=== PATIENT | male | born 1945 | race Caucasian/White ===

== ENCOUNTER 2016-07-20 08:55 | Inpatient (IN) | payer OTHER, MEDICARE ==
[~2016-07-20] VITALS: Ht 177.8 cm; Wt 76.3 kg
[2016-07-20] VITALS (32 sets, daily range): BP systolic 76–183; BP diastolic 45–81; PULSE 67–126; RESP 16–40; TEMP 97.8–102.8; O2SAT 92–100
[~2016-07-20 08:55] MED LIST: ASPI81 PO; COUM4TAB7 PO; LANTUSP SQ; LISI-363 PO; NORV5TAB PO; NOVOLOGSS SC; POLY10O OD; SIMV40TA PO; VITA400C28 PO
[2016-07-20] MEDS ORDERED: SODIUM CHLORID 0.9% 500 ML INJ 500 ML IV ONE ×3 (09:15→11:15)
--- NOTE | 2016-07-20 09:18 | PD ---
HPI Chief Complaint: Respiratory Distress Time Seen by Provider: 09:14 Travel History International Travel<30 days: No Contact w/Intl Traveler<30days: No Traveled to known affect area: No History of Present Illness HPI This 71-year-old male complaining of shortness of breath. He was well yesterday. His says he was very active appearing for an upcoming trip. Last night he started having chills and breathing heavy. He was short of breath. Around 4 in the morning he was incontinent of stool. Paramedics were called and blood sugar was found to be 35. He was given glucose. He has never smoked. His says that he gets pneumonia quite frequently. He had an episode of kidney failure 4 years ago but was never on dialysis. He has had some renal insufficiency since then. He also had congestive heart failure at that time. He has no history of myocardial infarction. The patient is on Coumadin because he has a history of DVT about 10 years ago. 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 Vena cava filter PFS Past Medical History Arthritis: Yes (lower back, knees) Autoimmune Disease: No Heart Rhythm Problems: No Cancer: No Cardiovascular Problems: Yes High Cholesterol: Yes Chemotherapy: No Chest Pain: No Congestive Heart Failure: Yes Diabetes: Yes Diminished Hearing: No Endocrine: Yes Genitourinary: No Hypertension: Yes Immune Disorder: No Implanted Vascular Access Dvce: Yes Musculoskeletal: Yes Neurologic: No Reproductive: No Respiratory: Yes (HX P.E. AND SOFYA FILTER) Radiation Therapy: No Renal Failure: Yes Sleep Apnea: No Thyroid Disease: No ?: Not Past Surgical History Abdominal Surgery: Yes (appendix, blocked bowel. groin filter) Appendectomy: Yes Cardiac Surgery: No Ear Surgery: No Endocrine Surgery: No Eye Surgery: No Genitourinary Surgery: Yes Oral Surgery: No Thoracic Surgery: No Other Surgery: Yes Social History Alcohol Use: No Tobacco Use: Yes (1/4 PACK A DAY) Substance Use: No Allergies-Medications (Allergen,Severity, Reaction): Coded Allergies: No Known Allergies (Verified , 07/20/16) Reported Meds & Prescriptions Reported Meds & Active Scripts Active Polytrim Opth (Polymyxin/Trimethoprim Sulfate) 10 Ml Soln 1 Drop OD QID Reported Vitamin D 400 Unit Tab 400 Unit PO DAILY Coumadin (Warfarin Sodium) 4 Mg Tab 4 Mg PO DAILY Norvasc (Amlodipine Besylate) 5 Mg Tab 5 Mg PO DAILY Lisinopril 20 Mg Tab 20 Mg PO DAILY START ON 05/02/12 Novolog Insulin Supplemental Scale (Insulin Aspart) 100 /Ml Inj 1 Ml SC DIRECTED Simvastatin 40 Mg Tab 40 Mg PO DAILY Aspirin 81 Mg Tab 81 Mg PO DAILY Lantus (Insulin Glargine) 100 Units/Ml Inj 60 Units SQ HS Review of Systems General / Constitutional: Positive: Chills Eyes: No: Diploplia, Blurred Vision HENT: No: Headaches, Vertigo Cardiovascular: No: Chest Pain or Discomfort, Palpitations Respiratory: Positive: Shortness of Breath, No: Wheezing Gastrointestinal: Positive: Diarrhea, No: Vomiting Musculoskeletal: No: Myalgias Neurologic: Positive: Weakness, No: Syncope Physical Exam Narrative GENERAL: Patient is somewhat mottled on arrival. He hasn't been lethargic SKIN: Focused skin assessment oh HEAD: Atraumatic. Normocephalic. EYES: Pupils equal and round. No scleral icterus. No injection or drainage. ENT: No nasal bleeding or discharge. Mucous membranes pink and moist. NECK: Trachea midline. No JVD. CARDIOVASCULAR: Rapid Regular rate and rhythm. No murmur appreciated. RESPIRATORY: There are bibasilar rales GASTROINTESTINAL: Abdomen soft, non-tender, nondistended. Hepatic and splenic margins not palpable. MUSCULOSKELETAL: No obvious deformities. No clubbing. No cyanosis. No edema. NEUROLOGICAL: Awake and alert. No obvious cranial nerve deficits. Motor grossly within normal limits. Normal speech. Data Data Last Documented VS Vital Signs Date Time Temp Pulse Resp B/P Pulse Ox O2 Delivery O2 Flow Rate FiO2 07/20/16 10:00 112 20 106/69 98 Non-Rebreather 07/20/16 08:57 97.8 Orders Electrocardiogram (07/20/16 09:14) Complete Blood Count With Diff (07/20/16 09:14) Comprehensive Metabolic Panel (07/20/16 09:14) Prothrombin Time / Inr (Pt) (07/20/16 09:14) Act Partial Throm Time (Ptt) (07/20/16 09:14) Lactic Acid Sepsis Protocol (07/20/16 09:14) Magnesium (Mg) (07/20/16 09:14) Troponin I (07/20/16 09:14) Urinalysis - C+S If Indicated (07/20/16 09:14) Blood Culture (07/20/16 09:14) Chest, Single Ap (07/20/16 09:14) Ecg Monitoring (07/20/16 09:14) Iv Access Insert/Monitor (07/20/16 09:14) Oximetry (07/20/16 09:14) Oxygen Administration (07/20/16 09:14) Arterial Blood Gas (Abg) (07/20/16 ) B-Type Natriuretic Peptide (07/20/16 09:14) Sodium Chlorid 0.9% 500 Ml Inj (Ns 500 M (07/20/16 09:15) Dextrose 50% In Tye (Vial) Inj (D50w (Vi (07/20/16 09:30) Ceftriaxone Inj (Rocephin Inj) (07/20/16 10:00) Azithromycin Inj (Zithromax Inj) (07/20/16 10:00) Sodium Chlorid 0.9% 500 Ml Inj (Ns 500 M (07/20/16 10:45) Ns (Bolus) Inj (07/20/16 11:00) Labs Laboratory Tests Test 07/20/16 07/20/16 07/20/16 09:15 09:30 09:33 White Blood Count 12.8 TH/MM3 Red Blood Count 4.99 MIL/MM3 Hemoglobin 15.4 GM/DL Hematocrit 44.8 % Mean Corpuscular Volume 89.8 FL Mean Corpuscular Hemoglobin 30.9 PG Mean Corpuscular Hemoglobin 34.4 % Concent Red Cell Distribution Width 12.7 % Platelet Count 266 TH/MM3 Mean Platelet Volume 8.2 FL Neutrophils (%) (Auto) 87.7 % Lymphocytes (%) (Auto) 5.9 % Monocytes (%) (Auto) 5.7 % Eosinophils (%) (Auto) 0.0 % Basophils (%) (Auto) 0.7 % Neutrophils # (Auto) 11.2 TH/MM3 Lymphocytes # (Auto) 0.8 TH/MM3 Monocytes # (Auto) 0.7 TH/MM3 Eosinophils # (Auto) 0.0 TH/MM3 Basophils # (Auto) 0.1 TH/MM3 CBC Comment DIFF FINAL Differential Comment Prothrombin Time 16.7 SEC Prothromb Time International 1.5 RATIO Ratio Activated Partial 33.0 SEC Thromboplast Time Sodium Level 143 MEQ/L Potassium Level 3.6 MEQ/L Chloride Level 105 MEQ/L Carbon Dioxide Level 18.7 MEQ/L Anion Gap 19 MEQ/L Blood Urea Nitrogen 27 MG/DL Creatinine 3.00 MG/DL Estimat Glomerular Filtration 21 ML/MIN Rate Random Glucose 62 MG/DL Calcium Level 9.4 MG/DL Magnesium Level 1.8 MG/DL Total Bilirubin 1.1 MG/DL Aspartate Amino Transf 39 U/L (AST/SGOT) Alanine Aminotransferase 34 U/L (ALT/SGPT) Alkaline Phosphatase 91 U/L Troponin I 0.14 NG/ML Total Protein 9.0 GM/DL Albumin 3.9 GM/DL Lactic Acid Level 7.7 mmol/L B-Type Natriuretic Peptide 207 PG/ML Blood Gas Puncture Site LT RADIAL Blood Gas Patient Temperature 98.6 Blood Gas HCO3 11 mmol/L Blood Gas Base Excess -13.7 mmol/L Blood Gas Oxygen Saturation 95 % Arterial Blood pH 7.34 Arterial Blood Partial 21 mmHG Pressure CO2 Arterial Blood Partial 118 mmHG Pressure O2 Arterial Blood Oxygen Content 19.7 Vol % Arterial Blood 0.5 % Carboxyhemoglobin Arterial Blood Methemoglobin 0.8 % Blood Gas Hemoglobin 14.6 G/DL Oxygen Delivery Device NONREBREATHER Blood Gas Liter Flow 15 L/M Blood Gas Inspired Oxygen 100 % [facility] Medical Decision Making Medical Screen Exam Complete: Yes Emergency Medical Condition: Yes Medical Record Reviewed: Yes Differential Diagnosis Differential includes pneumonia, pulmonary embolus, renal failure Narrative Course EKG shows sinus tachycardia with frequent PVCs. His white count is 12,000. Blood gases did show acidosis with pH 734 PCO2 21 04/16/17. Diagnosis Primary Impression: Hypoxia Additional Impression: Acidosis Glenn Curtis MD July 20, 2016 09:17
[2016-07-20] MEDS ORDERED: DEXTROSE 50% IN WATER 50 ML VIAL(D50) IV PUSH ONE (09:30)
[2016-07-20 09:38] LABS: AUTOMATED NEUTROPHIL # 11.2 TH/MM3 (1.8-7.7); BASOPHIL # 0.1 TH/MM3 (0-0.2); BASOPHIL % 0.7 % (0.0-2.0); HEMATOCRIT 44.8 % (39.0-51.0); LYMPH % 5.9 % (9.0-44.0); LYMPHOCYTE # 0.8 TH/MM3 (1.0-4.8); MEAN CELL VOLUME 89.8 FL (80.0-100.0); MEAN CORPUSCULAR HEMOGLOBIN 30.9 PG (27.0-34.0); MEAN CORPUSCULAR HGB CONC 34.4 % (32.0-36.0); MONO % 5.7 % (0.0-8.0); NEUT % 87.7 % (16.0-70.0); PLATELET COUNT 266 TH/MM3 (150-450); RED BLOOD COUNT 4.99 MIL/MM3 (4.50-5.90); RED CELL DISTRIBUTION WIDTH 12.7 % (11.6-17.2); WHITE BLOOD COUNT 12.8 TH/MM3 (4.0-11.0)
[2016-07-20 09:40] LABS: HEMO FLAGS DIFF FINAL
[2016-07-20 09:41] LABS: BLOOD GAS BASE EXCESS -13.7 mmol/L (-2-2); BLOOD GAS CARBOXYHEMOGLOBIN 0.5 % (0-4); BLOOD GAS HCO3 11 mmol/L (22-26); BLOOD GAS METHEMOGLOBIN 0.8 % (0-2); BLOOD GAS O2 HGB SATURATION 95 % (90-100); BLOOD GAS OXYGEN CONTENT 19.7 Vol % (12.0-20.0); BLOOD GAS PO2 118 mmHG (61-120); BLOOD GAS TOTAL HGB 14.6 G/DL (12.0-16.0); TEMP CORR TO 98.6
[2016-07-20 09:42] LABS: BLOOD GAS PCO2 21 mmHG (38-42); CRITICAL VALUE YES; DRAW SITE LT RADIAL; FIO2 100 %; LITER FLOW 15 L/M; NUMBER OF ARTERIAL PUNCTURES 1; OXYGEN DEVICE NONREBREATHER; STAT YES; ULNAR PULSE PRESENT
[2016-07-20 09:58] LABS: INTERNATIONAL NORMALIZED RATIO 1.5 RATIO; PROTHROMBIN TIME - PATIENT 16.7 SEC (9.8-11.6)
[2016-07-20 09:59] LABS: BICARBONATE 18.7 MEQ/L (21.0-32.0)
[2016-07-20 10:00] LABS: BLOOD UREA NITROGEN 27 MG/DL (7-18); MAGNESIUM 1.8 MG/DL (1.5-2.5)
[2016-07-20] MEDS ORDERED: cefTRIAXone INJ 1,000 MG in SODIUM CHLORIDE 0.9% INJ 100 ML IV ONE (10:00)
[2016-07-20] MEDS ORDERED: AZITHROMYCIN INJ 500 MG in SODIUM CHLOR 0.9% 250 ML INJ 250 ML IV ONE (10:00)
[2016-07-20 10:03] LABS: ANION GAP 19 MEQ/L (5-15); AST (GOT) 39 U/L (15-37); CHLORIDE 105 MEQ/L (98-107); POTASSIUM 3.6 MEQ/L (3.5-5.1); SODIUM (NA) 143 MEQ/L (136-145)
[2016-07-20 10:06] LABS: ALKALINE PHOSPHATASE 91 U/L (45-117); GLOMERULAR FILTRATION RATE 21 ML/MIN (>89)
[2016-07-20 10:08] LABS: ALT (GPT) 34 U/L (12-78)
--- NOTE | 2016-07-20 10:14 | RADHPO ---
EXAM DATE/TIME: 07/20/2016 09:57 [facility] COMPARISON: CHEST SINGLE AP, April 28, 2012, 9:22. INDICATIONS : Short of breath MEDICAL HISTORY : None. SURGICAL HISTORY : None. ENCOUNTER: Initial ACUITY: 2 days PAIN SCORE: 0/10 LOCATION: Bilateral chest FINDINGS: A single AP erect portable view of the chest was obtained and demonstrates mild chronic scarring. The re are no new confluent infiltrates or effusions. The heart size is within normal limits with no nikos hilar edema. The bony thorax remains intact with overlying electrocardiogram leads. Mild atherosclero tic calcifications are present in the aorta. CONCLUSION: Mild scarring with no acute cardiopulmonary disease. Alonzo Bradshaw MD on July 20, 2016 at 10:11 Board Certified Radiologist. This report was verified electronically.
[2016-07-20 10:15] LABS: TOTAL BILIRUBIN ADULT 1.1 MG/DL (0.2-1.0)
[2016-07-20] MEDS ORDERED: SODIUM CHLOR 0.9% 1000 ML INJ 1,000 ML IV ONE ×3 (11:00→16:00)
[2016-07-20] MEDS ORDERED: ASPI81CH37 CHEW (11:09)
[2016-07-20] MEDS ORDERED: LISI-515 PO (11:09)
[2016-07-20] MEDS ORDERED: SIMV20TA PO (11:09)
[2016-07-20] MEDS ORDERED: NOVOLOGP2 SQ (11:09)
[2016-07-20] MEDS ORDERED: WARF4TAB51 PO (11:09)
[2016-07-20] MEDS ORDERED: LANTUS2P SQ (11:09)
[2016-07-20] MEDS ORDERED: AMLO5TAB2 PO (11:09)
[2016-07-20] MEDS ORDERED: VITA1000 PO (11:09)
[2016-07-20] MEDS ORDERED: MISCELLANEOUS NURSING INFORMATION XX SCH (11:15)
[2016-07-20] MEDS ORDERED: MORPHINE SULFATE 4 MG/ML INJ IV PRN (11:15)
[2016-07-20] MEDS ORDERED: SENNOSIDES 8.6 MG TAB PO PRN (11:15)
[2016-07-20] MEDS ORDERED: SODIUM CHLORIDE 0.9% FLUSH 10 ML FLUSH IV FLUSH PRN (11:15)
[2016-07-20] MEDS ORDERED: ONDANSETRON HCL 4 MG/2 ML VIAL IV PRN (11:15)
[2016-07-20] MEDS ORDERED: CHLORHEXIDINE GLUCONATE 2 % 1 PACK (2 CLOTHS) TOP PRN (11:15)
--- NOTE | 2016-07-20 11:57 | RADHPO ---
EXAM DATE/TIME: 07/20/2016 11:28 [facility] COMPARISON: CHEST SINGLE AP, July 20, 2016, 9:57. INDICATIONS : Short of breath since last night. RADIATION DOSE: 24.22 CTDIvol (mGy) MEDICAL HISTORY : History of left adrenal mass seen on prior CT Hypertension. Congestive heart failure. Aortic aneurys m. Diabetes. SURGICAL HISTORY : Appendectomy. Dom filter. ENCOUNTER: Initial ACUITY: 2 days PAIN SCALE: 0/10 LOCATION: chest TECHNIQUE: Volumetric scanning of the chest was performed. Using automated exposure control and adjustment of t he mA and/or kV according to patient size, radiation dose was kept as low as reasonably achievable to obtain optimal diagnostic quality images. FINDINGS: LUNGS: There is no consolidation or pneumothorax. Chronic scarring is present in the lung bases left greater than right. This is more severe in the subpleural locations. No concerning pulmonary nodule is visua lized. PLEURAE: There is no pleural thickening or pleural effusion. MEDIASTINUM: The heart and great vessels demonstrate no acute abnormality. There is no mediastinal or hilar lymph adenopathy. The coronary artery calcifications are present. There is no pericardial effusion. AXILLAE: Within normal limits. No lymphadenopathy. MUSCULOSKELETAL: Within normal limits for patient age. MISCELLANEOUS: The visualized upper abdominal organs demonstrate no acute abnormality. A left adrenal adenoma is aga in noted. There is a smaller mass in the right adrenal gland most consistent with a small adenoma as well. There are multiple loops of borderline dilated air-containing small bowel in the upper abdomen with multiple air-fluid levels. CONCLUSION: 1. Chronic scarring in the lung bases left greater than right. 2. No focal consolidation. 3. Bilateral adrenal masses left greater than right most consistent with adenomas. 4. Nonspecific bowel gas pattern noted in the upper abdomen with air-fluid levels in the small bowel. Alonzo Bradshaw MD on July 20, 2016 at 11:52 Board Certified Radiologist. This report was verified electronically.
[2016-07-20 11:59] LABS: LACTIC ACID GHOST NOT REPORTABLE
[2016-07-20] MEDS: SODIUM CHLOR 0.9% 1000 ML INJ 1,000 ML IV SCH ×2 (12:05→23:49)
[2016-07-20] MEDS: RESP: ALBUTEROL 2.5 MG/IPRATROPIUM 0.5 MG NEB (SCH) INH ×3 (12:22→19:44)
[2016-07-20] MEDS ORDERED: TERBUTALINE INJ 1 MG/ML AMP SQ PRN (13:15)
[2016-07-20] MEDS ORDERED: ROCURONIUM INJ 100 MG/10 ML VIAL IV ONE (13:30)
[2016-07-20] MEDS ORDERED: ETOMIDATE 40 MG/20 ML VIAL IV PUSH ONE (13:30)
[2016-07-20] MEDS: NOREPINEPHRINE-DEXTROSE DRIP 250 ML IV SCH ×4 (14:12→21:56)
--- NOTE | 2016-07-20 14:18 | PD.PROCEDR ---
Central Line Procedure REASON FOR PROCEDURE Central venous access PROCEDURE PERFORMED Central line placement: Left IJ CVL CONSENT Informed consent for procedure was obtained from patient. The risks and benefits of the procedure were discussed to include but limited to bleeding, clot formation, infection, and even . ANESTHESIA Local injection of 1% Lidocaine DESCRIPTION OF THE PROCEDURE The patient was placed in supine, mild Trendelenburg position. The area was exposed and cleansed with ChloraPrep, times two. Large sterile drape was used to cover the patient, with the site exposed, under sterile conditions including cap, face mask, sterile gown, and sterile gloves. On single attempt, the introducer needle was inserted with negative pressure in syringe and venous flash was obtained. The guide wire was then advanced without any restriction and the needle was removed. The dilator was used without any complications. Using Seldinger technique the triple-lumen catheter was advanced over the guide wire to a depth of 20 centimeters. The guide wire was removed. All ports were aspirated with dark venous blood return and flushed easily with sterile saline. All ports were capped. Antibiotic disc was placed around central line at puncture site. The central line was secured to the skin with two interrupted 2.0 silk sutures. The area was bandaged with sterile see-through central line bandage. RADIOLOGICAL DATA Ultrasound guidance was used to locate left internal jugular vein. Doppler/ color flow was used to confirm venous flow. COMPLICATIONS: No apparent complications ESTIMATED BLOOD LOSS: Less than 1 cc. Andrey Brown MD July 20, 2016 14:18
--- NOTE | 2016-07-20 14:19 | PD.PROCEDR ---
Procedure Note Procedure DATE: 07/20/16 PROCEDURE: Orotracheal intubation INDICATION: Acute hypoxemic respiratory failure DETAILS OF PROCEDURE The patient was placed in optimal position and preoxygenated with 100% FiO2 via bag valve mask. At the start oxygen saturation was 100%. The patient was administered 25 mcg fentanyl IV and 20 milligrams etomidate IV and 50 mg rocuronium. I entered the oropharynx with a size 4 GVL glidescope blade and obtained a grade 2 view of the airway. On single attempt a size 8.0 cuffed endotracheal tube was passed through the vocal cords. Correct tube location was confirmed with end tidal CO2 detector and by auscultating over bilateral lung narayan. The endotracheal tube was secured with adhesive tape at a depth of 24 cm at the lips. The patient was connected to the ventilator. The patient tolerated the procedure well without any apparent complications. Oxygen saturations were maintained greater than 95% all times. STAT chest x-ray pending at time of dictation. Andrey Brown MD July 20, 2016 14:19
[2016-07-20] MEDS ORDERED: Vancomycin Consult Pharmacy 1 EA OTHER SCH (14:30)
[2016-07-20] MEDS ORDERED: SODIUM CHLORIDE 0.9% FLUSH 10 ML FLUSH IVF PRN (14:30)
[2016-07-20] MEDS ORDERED: ASPIRIN 81 MG CHEW TAB CHEW ONE (14:30)
--- NOTE | 2016-07-20 14:34 | HHI.HP ---
[facility] Service Critical Care Medicine Primary Care Physician [facility] Admission Diagnosis HYPOXIA Diagnosis: (1) Diabetes mellitus with neuropathy Diagnosis: Principal (2) Diabetes mellitus due to underlying condition with diabetic neuropathy Diagnosis: Principal (3) Severe sepsis with acute organ dysfunction Diagnosis: Principal (4) Lactic acidosis Diagnosis: Principal (5) Hypoxia Diagnosis: Principal (6) Acidosis Diagnosis: Principal (7) Leukocytosis Diagnosis: Principal (8) Elevated troponin Diagnosis: Principal (9) Dyslipidemia Diagnosis: Principal (10) History of DVT (deep vein thrombosis) Diagnosis: Principal (11) Chronic anticoagulation Diagnosis: Principal (12) Peripheral vascular disease Diagnosis: Principal (13) Hypertension Diagnosis: Principal Chief Complaint: Shortness of breath Travel History International Travel<30 Days: No Contact w/Intl Traveler <30 Da: No Traveled to Known Affected Are: No Sepsis Criteria SIRS Criteria (2 or more): RR > 20 or PaCO2 < 32, WBC > 41436, < 4000 or > 10 % bands Sepsis Criteria (SIRS+source): Infect source susp/known Severe Sepsis (+one): Lactate >2 Septic Shock Criteria: Lactic acid >=4 Multiple Organ Dysfunction Syn: Evidence -2 organs failing Criteria Outcome: Meets multiple organ dys. criteria History of Present Illness 71-year-old male. Date of admission 07/20/2016. Past records includes diabetes with neuropathy and nephropathy, hypertension, dyslipidemia, chronic pain syndrome, history of DVT/PE on chronic anticoagulation, peripheral vascular disease with history of AAA, and osteoporosis. Patient recently C [facility] 07/06/16. Patient sick contacts would include neighbor with "vital illness. Patient is to [facility] today with acute onset of diarrhea, hypoglycemia and chills. Upon arrival, patient was noted be acutely hypoxic and required a nonrebreather mask. Patient denies pleuritic chest pain , abdominal pain but positive for nausea and diarrhea. CT chest revealed bilateral lower lobe scarring, bilateral adrenal adenomas a nonspecific bowel gas pattern. Chest x-ray revealed no significant findings. Lab work included a lactic acid elevated 7.7, white blood cell count 12,000 in acute kidney injury with a creatinine of 3.0. Baseline around 1.5-2. Troponin was slightly elevated 0.14. EKG is currently pending. Upon arrival to [facility], patient was extremely mottled with rates in the 40s. Patient was emergently intubated please see note and a left IJ central line was placed. CT of the head, abdomen and pelvis currently pending. Review of Systems ROS Limitations: Intubated Past Family Social History Allergies: Coded Allergies: No Known Allergies (Verified , 07/20/16) Physical Exam Vital Signs Vital Signs Date Time Temp Pulse Resp B/P Pulse Ox O2 Delivery O2 Flow Rate FiO2 07/20/16 14:02 99 100 07/20/16 13:04 112 30 93/54 100 Non-Rebreather 15 07/20/16 12:34 111 30 78/47 100 Non-Rebreather 15 07/20/16 12:26 100 Non-Rebreather 07/20/16 11:54 114 28 78/51 100 Non-Rebreather 15 07/20/16 11:07 24 100 Non-Rebreather 15 07/20/16 11:00 112 24 86/61 100 Non-Rebreather 15 07/20/16 11:00 98.4 112 28 86/61 100 Non-Rebreather 15 07/20/16 10:00 112 20 106/69 98 Non-Rebreather 07/20/16 09:30 117 24 129/69 100 Non-Rebreather 12 07/20/16 09:05 100 Nasal Cannula 3 07/20/16 09:00 118 24 Nasal Cannula 3 07/20/16 08:57 97.8 67 24 96/60 92 Physical Exam GENERAL: SKIN: Warm and dry. HEAD: Atraumatic. Normocephalic. EYES: Pupils equal and round. No scleral icterus. No injection or drainage. ENT: No nasal bleeding or discharge. Mucous membranes pink and moist. NECK: Trachea midline. No JVD. CARDIOVASCULAR: Regular rate and rhythm. RESPIRATORY: No accessory muscle use. Clear to auscultation. Breath sounds equal bilaterally. GASTROINTESTINAL: Abdomen soft, non-tender, nondistended. Hepatic and splenic margins not palpable. MUSCULOSKELETAL: Extremities without clubbing, cyanosis, or edema. No obvious deformities. NEUROLOGICAL: Awake and alert. No obvious cranial nerve deficits. Motor grossly within normal limits. Five out of 5 muscle strength in the arms and legs. Normal speech. PSYCHIATRIC: Appropriate mood and affect; insight and judgment normal. Laboratory Laboratory Tests Test 07/20/16 07/20/16 07/20/16 07/20/16 09:15 09:30 09:33 12:10 White Blood Count 12.8 Red Blood Count 4.99 Hemoglobin 15.4 Hematocrit 44.8 Mean Corpuscular Volume 89.8 Mean Corpuscular Hemoglobin 30.9 Mean Corpuscular Hemoglobin 34.4 Concent Red Cell Distribution Width 12.7 Platelet Count 266 Mean Platelet Volume 8.2 Neutrophils (%) (Auto) 87.7 Lymphocytes (%) (Auto) 5.9 Monocytes (%) (Auto) 5.7 Eosinophils (%) (Auto) 0.0 Basophils (%) (Auto) 0.7 Neutrophils # (Auto) 11.2 Lymphocytes # (Auto) 0.8 Monocytes # (Auto) 0.7 Eosinophils # (Auto) 0.0 Basophils # (Auto) 0.1 CBC Comment DIFF FINAL Differential Comment Prothrombin Time 16.7 Prothromb Time International 1.5 Ratio Activated Partial 33.0 Thromboplast Time D-Dimer Quantitative (PE/DVT) 14.64 Sodium Level 143 Potassium Level 3.6 Chloride Level 105 Carbon Dioxide Level 18.7 Anion Gap 19 Blood Urea Nitrogen 27 Creatinine 3.00 Estimat Glomerular Filtration 21 Rate Random Glucose 62 Calcium Level 9.4 Magnesium Level 1.8 Total Bilirubin 1.1 Aspartate Amino Transf 39 (AST/SGOT) Alanine Aminotransferase 34 (ALT/SGPT) Alkaline Phosphatase 91 Troponin I 0.14 Total Protein 9.0 Albumin 3.9 Lactic Acid Level 7.7 5.8 B-Type Natriuretic Peptide 207 Blood Gas Puncture Site LT RADIAL Blood Gas Patient Temperature 98.6 Blood Gas HCO3 11 Blood Gas Base Excess -13.7 Blood Gas Oxygen Saturation 95 Arterial Blood pH 7.34 Arterial Blood Partial 21 Pressure CO2 Arterial Blood Partial 118 Pressure O2 Arterial Blood Oxygen Content 19.7 Arterial Blood 0.5 Carboxyhemoglobin Arterial Blood Methemoglobin 0.8 Blood Gas Hemoglobin 14.6 Oxygen Delivery Device NONREBREATHER Blood Gas Liter Flow 15 Blood Gas Inspired Oxygen 100 Date/Time Procedure Status Source Growth 07/20/16 09:30 Aerobic Blood Culture Received Blood Peripheral Pending 07/20/16 09:30 Anaerobic Blood Culture Received Blood Peripheral Pending Result Diagram: 07/20/1691407/20/16914 Imaging Last Impressions Chest X-Ray 07/20/16913 Signed Impressions: Service Date/Time: Wednesday, July 20, 2016 09:57 - CONCLUSION: Mild scarring with no acute cardiopulmonary disease. Alonzo Bradshaw MD Chest CT 07/20/16 0000 Signed Impressions: Service Date/Time: Wednesday, July 20, 2016 11:28 - CONCLUSION: 1. Chronic scarring in the lung bases left greater than right. 2. No focal consolidation. 3. Bilateral adrenal masses left greater than right most consistent with adenomas. 4. Nonspecific bowel gas pattern noted in the upper abdomen with air-fluid levels in the small bowel. Alonzo Bradshaw MD Assessment and Plan Assessment and Plan Neuro/Psych: Peripheral neuropathy Chronic pain syndrome Patient is currently on propofol/fentanyl drips for sedation/analgesia while intubated Goal of RA SS -[address] head ordered without contrast CV: Elevated troponin Hypertension Dyslipidemia Lactic acidosis Peripheral vascular disease History of AAA Per 's verbal report patient this summer had a negative dobutamine stress test at the [place] Holding home medication lisinopril 20 no grams by mouth daily in light of acute kidney injury Holding home medication simvastatin 20 mg by mouth. Resume when clinically indicated Holding Norvasc 5 mill grams by mouth daily light of hypotension. Resume when clinically indicated Likely okay to continue aspirin 81 mg daily with elevated troponin. Follow-up on EKG/echocardiogram Troponins will be trended every 6 hours 2 Lactates every 6 hours. Monitor until cleared. Source unclear present time. Currently receiving 3 L bolus 1 now Echocardiogram revealed EF 50-55%. RV dilated. Left atrium dilated Trace . Resp: Acute hypoxemic respiratory failure [facility]ism [facility] 16/500/8/1.1/100 Ventilator bundle Bronchodilator therapy every 4 hours with albuterol every 2 hours. Dyspnea Spontaneous breathing trials when clinically indicated Follow-up is intubation chest x-ray and ABG CT chest 07/20 revealed left greater than right basilar scarring. Bilateral adrenal adenomas. VQ scan ordered GI: Patient is currently nothing by mouth OG tube t LIWS Protonix for GI prophylaxis Colace/as needed Senokot for bowel regimen Checking stool studies see orders in ID : Connelly will be placed for accurate I's and O's in a critically ill patient Bladder scan with 18 cc currently Endo: Diabetes mellitus with nephropathy and neuropathy Bilateral adrenal adenoma Home medications Lantus 70 units at night with slight scale insulin. Currently on sliding scale insulin Accu-Cheks every 4 hours to maintain euglycemia/moderate regimen Renal: Acute on chronic kidney failure Creatinine currently 3.0. Will check CT abdomen/pelvis rule out obstructive process. Urine eosinophils/electrolytes pending Heme: Leukocytosis Chronic warfarin use History DVT/PE with history of IVC filter 10 years INR subtherapeutic at 1.5 Patient does have an IVC filter ID: Patient received Rocephin/azithromycin ED at [place]. Start Zosyn/vancomycin day #1 Pertinent cultures Blood cultures 2, UA, urine Legionella pneumococcal antigens, influenza all ordered. Results pending. Sputum ordered. MSK: Osteoarthritis Holding vitamin D 1000 units by mouth daily. FEN: Replace electrolytes as clinically indicated Access - Left IJ CVL day 1 - checking CVP every 6 hours. Currently 11 Prophylaxis - GI - Protonix - DVT - SCD/heparin drip if head CT negative/abdominal and pelvis CT negative. Critical Care: The total critical care time was 75 minutes. Time to perform other separately billable procedures was not included in the critical care time. Code Status Full code Discussed Condition With Alysia Lemus and daughter. Care plan discussed and all questions answered. Problem Qualifiers (1) Diabetes mellitus with neuropathy: Qualified Code: E11.40 - Type 2 diabetes mellitus with diabetic neuropathy, unspecified oil heaterman insulin use status (2) Diabetes mellitus due to underlying condition with diabetic neuropathy: Qualified Code: E08.40 - Diabetes mellitus due to underlying condition with diabetic neuropathy, with long-term current use of insulin (3) Leukocytosis: Qualified Code: D72.829 - Leukocytosis, unspecified type (4) Hypertension: Qualified Code: I10 - Essential hypertension Andrey Brown MD July 20, 2016 14:34
--- NOTE | 2016-07-20 14:53 | RADRPT ---
EXAM DATE/TIME: 07/20/2016 14:32 [facility] COMPARISON: CHEST SINGLE AP, July 20, 2016, 9:57. INDICATIONS : Central line placement. MEDICAL HISTORY : None. SURGICAL HISTORY : None. ENCOUNTER: Initial ACUITY: 1 day PAIN SCORE: Non-responsive. LOCATION: Bilateral chest FINDINGS: A single AP semierect view of the chest was obtained and demonstrates interval placement of left inte rnal jugular central venous line with the tip projected over the superior vena cava. There is no pneu mothorax. An endotracheal tube has been placed with the tip 4 cm above the krissy. A nasogastric tube is also been placed and is seen coursing through the esophagus and into the stomach. There are no ne w confluent infiltrates or effusions. The heart size remains within normal limits. CONCLUSION: 1. Interval intubation and placement of left internal jugular central venous line with no pneumothora x. 2. Placement of nasogastric tube. 3. No acute cardiopulmonary disease. Alonzo Bradshaw MD on July 20, 2016 at 14:49 Board Certified Radiologist. This report was verified electronically.
--- NOTE | 2016-07-20 15:07 | RADHPO ---
EXAM DATE/TIME: 07/20/2016 14:39 [facility] COMPARISON: No previous studies available for comparison. INDICATIONS : Shortness of breath MEDICAL HISTORY : Hypercholesterolemia. Congestive heart failure. DVT. CHF. PE. Renal failure. SURGICAL HISTORY : Appendectomy. Dom filter. ENCOUNTER: Initial ACUITY: 1 day PAIN SCORE: Non-responsive LOCATION: Bilateral leg. TECHNIQUE: Venous ultrasound of the left and right leg was performed from the inguinal ligament to the proximal calf. Real-time, color Doppler and spectral tracing, compression and augmentation techniques were us ed. FINDINGS: RIGHT LEG: There is normal compressibility of the deep venous system from the inguinal region to the proximal ca lf. No echogenic clot is seen in the lumen of the common femoral, femoral, popliteal, and posterior tibial veins. There is a normal response of the venous system to proximal and distal augmentation an d respiration. LEFT LEG: There is normal compressibility of the deep venous system from the inguinal region to the proximal ca lf. No echogenic clot is seen in the lumen of the common femoral, femoral, popliteal, and posterior tibial veins. There is a normal response of the venous system to proximal and distal augmentation an d respiration. CONCLUSION: Negative exam with no evidence of deep venous thrombosis. Alonzo Bradshaw MD on July 20, 2016 at 15:05 Board Certified Radiologist. This report was verified electronically.
[2016-07-20] MEDS: fentaNYL DRIP 250 ML IV SCH (15:08)
[2016-07-20] MEDS: PROPOFOL 1000 MG/100 ML INJ 100 ML IV SCH ×3 (15:09→21:20)
[2016-07-20 15:17] LABS: BLOOD GAS BASE EXCESS -13.9 mmol/L (-2-2); BLOOD GAS CARBOXYHEMOGLOBIN 0.3 % (0-4); BLOOD GAS HCO3 14 mmol/L (22-26); BLOOD GAS METHEMOGLOBIN 2.1 % (0-2); BLOOD GAS O2 HGB SATURATION 96 % (90-100); BLOOD GAS OXYGEN CONTENT 17.2 Vol % (12.0-20.0); BLOOD GAS PCO2 49 mmHg (38-42); BLOOD GAS PO2 358 mmHg (61-120); BLOOD GAS TOTAL HGB 12.1 G/DL (12.0-16.0); TEMP CORR TO 98.6
[2016-07-20 15:18] LABS: CRITICAL VALUE YES; FIO2 100 %; OXYGEN DEVICE VENT
[2016-07-20 15:19] LABS: DRAW SITE ALINE; STAT NO
[2016-07-20] MEDS ORDERED: SODIUM BICARBONATE 8.4% INJ 50 MEQ/50 ML SYR IV PUSH ONE (15:30)
[2016-07-20] MEDS: PIPERACIL-TAZO 3.375 GM PREMIX 50 ML IV SCH ×2 (15:43→21:20)
[2016-07-20] MEDS ORDERED: DIATRIZOATE MEGLUM/DIATRIZOATE SOD 9 ML CUP PO ONE (16:00)
[2016-07-20] MEDS ORDERED: VANCOMYCIN INJ 1,700 MG in SODIUM CHLORID 0.9% 500 ML INJ 500 ML IV ONE (16:00)
--- NOTE | 2016-07-20 16:18 | RADHPO ---
EXAM DATE/TIME: 07/20/2016 14:32 [facility] COMPARISON: No previous studies available for comparison. INDICATIONS : Increased Bun and Creatine. MEDICAL HISTORY : Hypercholesterolemia. Hypertension. CHF. PE. DVT. Renal failure. SURGICAL HISTORY : Appendectomy. Etters filter. ENCOUNTER: Initial ACUITY: 1 day PAIN SCORE: Nonresponsive. LOCATION: Bilateral flank MEASUREMENTS: RIGHT KIDNEY: 10.7 x 5.8 x 5.6 cm LEFT KIDNEY: 11.9 x 5.1 x 6.1 cm FINDINGS: RIGHT KIDNEY: Renal cortex is normal in thickness and echotexture. No hydronephrosis, stone, or mass. LEFT KIDNEY: Renal cortex is normal in thickness and echotexture. No hydronephrosis, stone, or mass. BLADDER: Not clearly visualized CONCLUSION: 1. No acute findings. Renal ultrasound unremarkable. Bladder was not well-visualized. Jose Martin Valderrama MD on July 20, 2016 at 16:14 Board Certified Radiologist. This report was verified electronically.
[2016-07-20 16:28] LABS: BACTERIA, URINE FEW /hpf; BLOOD, URINE LARGE (NEG); GLUCOSE,URINE TRACE mg/dL (NEG); KETONE, URINE NEG (NEG); MUCUS URINE FEW /lpf (OCC); NITRITE,URINE NEG (NEG); PH, URINE 5.5 (5.0-8.5); SQUAMOUS EPITHELIAL CELL URINE 3 /hpf (0-5); URIC ACID CRYSTALS, URINE FEW /hpf; URINE COLOR YELLOW (YELLW/STRAW)
[2016-07-20 16:29] LABS: COMMENT (UR) CATH-CULTURE IND; CULTURE IF INDICATED CATH CULTURE IND
--- NOTE | 2016-07-20 16:38 | MB ---
cc: GOOD AMAYA MD DATE OF CONSULTATION 07/20/16 REASON FOR CONSULTATION Acute kidney injury and elevated BUN and creatinine. HISTORY OF PRESENT ILLNESS This is a 71-year-old male with past medical history of diabetes mellitus, hypertension, ischemic heart disease, peripheral neuropathy, chronic kidney disease, history of deep vein thrombosis, hyperlipidemia was brought to the hospital because of generalized weakness, confusion and vomiting and diarrhea. I was called to see the patient because of elevated BUN and creatinine. The patient has history of acute kidney injury in the past and chronic kidney disease. His creatinine was around 1.2 to 1.4, this was in 2012. At that time he also had acute kidney injury. His creatinine was as high as 8.5 in March of 2012. The patient was seen by me in the office, according to the , I do not have any record at present but according to the he was discharged from my office about three years ago and was told to just follow up with his primary physician and he has been following with his primary physician at the [facility]. The last time he was seen he was told that the kidney function is slightly worse and needs to take more fluid. The patient has been doing okay at home and this Thursday morning at 4 a.m. he woke up and he had low blood sugar. EMS was called and they gave him some dextrose and his sugar came up about 90 and he elected not to come to the hospital. Later on in the morning he again had the same episode and he was shaking and he has vomiting and has episode of loose bowel motion which was very large and then he was brought to the [facility] and from there he was found that he has been hypotensive and high creatinine and metabolic acidosis and he was transferred here. Here in the hospital the patient was intubated. He is found to have lactic acidosis and he is going down for further scans. His blood pressures has been supported. His urine output is low. He has just got the Connelly catheter. PAST MEDICAL HISTORY Hypertension, diabetes mellitus, ischemic heart disease, hyperlipidemia, history of deep venous thrombosis, peripheral vascular disease, chronic kidney disease with history of acute kidney injury. REVIEW OF SYSTEMS The review of systems cannot be taken since the patient is intubated. SOCIAL HISTORY The patient is , lives with his . He has a past history of smoking and occasionally has alcoholic beverages. FAMILY HISTORY The family history is noncontributory. ALLERGIES He has no known drug allergies. MEDICATIONS Currently he is gettin. Normal saline at 84 an hour. 2. Sodium bicarbonate, dextrose 75 an hour. 3. Aspirin 81 milligrams once a day. 4. DuoNeb nebulizer. 5. He got bolus of normal saline. 6. Vancomycin 1 dose 1.7 grams. 7. Zosyn 3.375 grams every 8 hours. 8. Norepinephrine. 9. Fentanyl as needed. PHYSICAL EXAMINATION GENERAL: On examination the patient is intubated and sedated. VITAL SIGNS: His last blood pressure is 93/54, temperature 98.4, oxygen saturation on 60% FIO2 is 99%. HEENT: Pupils are mid constricted. Nonicteric sclera, conjunctiva pale. NECK: Supple. JVD is not elevated. LUNGS: The patient has bilateral good air entry with scattered wheezing. HEART: S1-S2 regular rhythm. ABDOMEN: Distended, soft, lax. There is no tenderness. EXTREMITIES: There is no pedal edema. INVESTIGATION WBC count 12.8, hemoglobin 15.4, platelet count 266, sodium 143. Potassium 3.6, chloride 105, bicarb 18.7, BUN 27, creatinine 3, lactic acid level is 5.8, it was 7.7. Calcium is 9.4, magnesium 1.8, total bilirubin is 1.1, AST is 39, ALT is 34. Troponin is 0.14. Total protein is 9.0 with albumin of 3.9. D-dimer is 14.4. APTT is 33. INR is 1.5. Urinanalysis not done. IMAGING STUDIES The patient had chest x-ray done which shows lung field clear. CT scan of the chest was done without IV contrast and shows chronic scarring in the lung bases. No focal consolidation. Bilateral adrenal masses consistent with adenoma. The lower leg ultrasound was done which was negative for deep venous thrombosis. Ultrasound of the kidney was done but has not been reported yet. ASSESSMENT/PLAN 1. Hypotension and shock status. 2. Acute kidney injury. 3. Severe lactic acidosis. 4. Respiratory failure. 5. Acute kidney injury with chronic kidney disease. 6. Leukocytosis. 7. Rule out sepsis. The patient has severe lactic acidosis and acute kidney injury and hypotension. The acute kidney injury is most likely related to ATN or possibility of interstitial nephritis. I will check the urinanalysis and also get the urine sodium and osmolality along with urine eosinophils. Agree with continuing the IV fluids with sodium bicarbonate and follow the urine output and the BMP and if there is no improvement he possibly will need dialysis. This was discussed with the family, and daughter at the bedside. Thank you for the consultation. I will follow the patient while he is in the hospital. MD DILAN Sullivan/JOSE /4:04 PM /4:13 PM
[2016-07-20] MEDS: SODIUM BICARBONATE 8.4% INJ 150 MEQ in DEXTROSE 5% IN WATE 1000ML INJ 1,000 ML IV SCH ×2 (16:57)
[2016-07-20] MEDS ORDERED: SODIUM CHLOR 0.9% 1000 ML INJ 700 ML IV ONE (17:00)
--- NOTE | 2016-07-20 18:40 | RADRPT ---
EXAM DATE/TIME: 07/20/2016 18:21 [facility] COMPARISON: No previous studies available for comparison. INDICATIONS : Altered mental status. RADIATION DOSE: 48.62 CTDIvol (mGy) MEDICAL HISTORY : Diabetes mellitus type 2. Congestive heart failure. Renal failure, chronic.Hypertension SURGICAL HISTORY : Appendectomy. Colon resection. ENCOUNTER: Initial ACUITY: 1 day PAIN SCALE: Non-responsive LOCATION: cranial TECHNIQUE: Multiple contiguous axial images were obtained of the head. Using automated exposure control and adj ustment of the mA and/or kV according to patient size, radiation dose was kept as low as reasonably a chievable to obtain optimal diagnostic quality images. FINDINGS: CEREBRUM: The ventricles are normal for age. No evidence of midline shift, mass lesion, hemorrhage or acute in farction. No extra-axial fluid collections are seen. POSTERIOR FOSSA: The cerebellum and brainstem are intact. The 4th ventricle is midline. The cerebellopontine angle i s unremarkable. EXTRACRANIAL: The visualized portion of the orbits is intact. SKULL: The calvaria is intact. No evidence of skull fracture. CONCLUSION: 1. No acute intracranial abnormalities. Mild mucosal thickening of the ethmoid air cells. Jose Martin Valderrama MD on July 20, 2016 at 18:36 Board Certified Radiologist. This report was verified electronically.
--- NOTE | 2016-07-20 18:47 | RADRPT ---
EXAM DATE/TIME: 07/20/2016 18:24 [facility] COMPARISON: No previous studies available for comparison. INDICATIONS : Sepsis. ORAL CONTRAST: No oral contrast ingested. RADIATION DOSE: 38.36 CTDIvol (mGy) MEDICAL HISTORY : Diabetes mellitus type 2. Congestive heart failure. Renal failure, chronic.Hypertension SURGICAL HISTORY : Appendectomy. Colon resection. ENCOUNTER: Initial ACUITY: 1 day PAIN SCALE: Non-responsive LOCATION: abdomen TECHNIQUE: Volumetric scanning of the abdomen and pelvis was performed. Using automated exposure control and ad justment of the mA and/or kV according to patient size, radiation dose was kept as low as reasonably achievable to obtain optimal diagnostic quality images. FINDINGS: There is dependent consolidation in both lungs with a small left pleural effusion. Moderate coronary calcifications. No acute findings in the liver, spleen, pancreas. No calcified gallstones. There are nonobstructing b ilateral renal calculi measuring 2-3 mm. Inferior vena cava filter is present. There is a lower abdominal ventral hernia containing a loop of bowel. Small bowel is fairly diffusely distended, likely an ileus. There is no definite obstruction in the area of herniation. Connelly catheter in bladder. The free air free fluid. CONCLUSION: 1. Lower abdominal ventral midline hernia containing loop of small bowel. Small bowel is mildly diste nded somewhat diffusely with fluid and air. Cannot exclude a low grade partial bowel obstruction in t he area of herniation. 2. No abnormal fluid collections to suggest abscess. No free air or free fluid. 3. Basilar and dependent lung consolidation, left greater than right. Pneumonia could have this appea nati. Small left effusion. 4. NG tip in stomach. Inferior vena cava filter present. Connelly catheter in bladder. Jose Martin Valderrama MD on July 20, 2016 at 18:38 Board Certified Radiologist. This report was verified electronically.
[2016-07-20 18:57] LABS: BLOOD GAS BASE EXCESS -10.7 mmol/L (-2-2); BLOOD GAS CARBOXYHEMOGLOBIN 0.8 % (0-4); BLOOD GAS HCO3 15 mmol/L (22-26); BLOOD GAS METHEMOGLOBIN 2.5 % (0-2); BLOOD GAS O2 HGB SATURATION 94 % (90-100); BLOOD GAS OXYGEN CONTENT 15.7 Vol % (12.0-20.0); BLOOD GAS PCO2 31 mmHg (38-42); BLOOD GAS PO2 100 mmHg (61-120); BLOOD GAS TOTAL HGB 11.8 G/DL (12.0-16.0); CRITICAL VALUE YES; DRAW SITE RT BRACHIAL; FIO2 50 %; NUMBER OF ARTERIAL PUNCTURES 1; OXYGEN DEVICE VENTILATOR; STAT NO; TEMP CORR TO 98.6; ULNAR PULSE PRESENT
[2016-07-20 18:58] LABS: VENT SETTINGS PRVC/AC
--- NOTE | 2016-07-20 19:00 | EC ---
Study Study Date:07/20/2016 STUDY CONCLUSIONS SUMMARY - Left ventricle: The cavity size was normal. Wall thickness was normal. Systolic function was moderately reduced. The estimated ejection fraction was in the range of 35% to 40%. Wall motion was normal; there were no regional wall motion abnormalities. The study is not technically sufficient to allow evaluation of LV diastolic function. - Aortic valve: Valve area: 2.73cm^2(VTI). Valve area: 2.94cm^2 (Vmax). - Mitral valve: Mild regurgitation. - Pulmonary arteries: PA peak pressure: 37mm Hg (S). If LV function is below 40, please consider prescribing an ACEI or ARB or document rationale for non-use. PROCEDURE DATA STUDY STATUS: Elective. Procedure: Transthoracic echocardiography. Image quality was poor. Scanning was performed from the parasternal, apical, and subcostal acoustic windows. Study completion: The patient tolerated the procedure well. Transthoracic echocardiography. M-mode, complete 2D, complete spectral Doppler, and color Doppler. Height: Height: 70in. Weight: Weight: 188.6lb. Body mass index: BMI: 27.1kg/m^2. Body surface area: BSA: 2.04m^2. Patient status: Inpatient. CARDIAC ANATOMY LEFT VENTRICLE: The cavity size was normal. Wall thickness was normal. Systolic function was moderately reduced. The estimated ejection fraction was in the range of 35% to 40%. Wall motion was normal; there were no regional wall motion abnormalities. The study is not technically sufficient to allow evaluation of LV diastolic function. AORTIC VALVE: Trileaflet; normal thickness leaflets. Doppler: Transvalvular velocity was within the normal range. There was no stenosis. No regurgitation. Valve area: 2.73cm^2(VTI). Valve area: 2.94cm^2 (Vmax). Mean gradient: 9mm Hg (S). Peak gradient: 15mm Hg (S). AORTA: Aortic root: The aortic root was normal in size. MITRAL VALVE: Structurally normal valve. Doppler: Transvalvular velocity was within the normal range. There was no evidence for stenosis. Mild regurgitation. LEFT ATRIUM: The atrium was normal in size. RIGHT VENTRICLE: The cavity size was normal. Wall thickness was normal. PULMONIC VALVE: Doppler: Transvalvular velocity was within the normal range. There was no evidence for stenosis. No regurgitation. TRICUSPID VALVE: Structurally normal valve. Doppler: Transvalvular velocity was within the normal range. Trace regurgitation. PULMONARY ARTERY: The main pulmonary artery was normal-sized. Systolic pressure was within the normal range. RIGHT ATRIUM: The atrium was normal in size. PERICARDIUM: There was no pericardial effusion. SYSTEMIC VEINS: Inferior vena cava: The vessel was normal in size. Patient weight: 188.6lb _Ejection fraction:_ 65-75% _Fractional shortening:_ 32% up to 5Kg 5-11.5Kg 11.6-22.9Kg 23-45Kg 45-57Kg Aortic Root 7-13 <17 13-22 17-27 17-27 LA diam 6-13 <23 24-38 33-47 37-40 RVID 10-17 7-15 7-15 7-18 8-17 LVIDd 12-22 <32 24-38 33-47 37-40 LVPW 2-4 3-6 5-7 6-8 7-8 IVS 2-4 3-6 5-7 6-8 7-8 BASIC MEASUREMENTS ADULT NORMAL Left ventricle LV internal dimension, ED, chordal level, *31.3 mm 43-52 PLAX LV internal dimension, ES, chordal level, 26.1 mm 23-38 PLAX Fractional shortening, chordal level, PLAX *17 % >29 LV posterior wall thickness, ED 12.3 mm IVS/LVPW ratio, ED 1 <1.3 Ventricular septum Septal thickness, ED 12.3 mm Aorta Root diameter, ED 30 mm DOPPLER MEASUREMENTS ADULT NORMAL Main pulmonary artery Pressure, S *37 mm Hg =30 Aortic valve Peak velocity, S 195 cm/s Mean velocity, S 143 cm/s VTI, S 24.9 cm Mean gradient, S 9 mm Hg Peak gradient, S 15 mm Hg Valve area, VTI 2.73 cm^2 Valve area, Vmax 2.94 cm^2 Mitral valve Peak E-wave velocity 58.6 cm/s Peak A-wave velocity 104 cm/s Deceleration time *95 ms 150-230 Peak E/A ratio 0.6 Tricuspid valve Regurgitant peak velocity 266 cm/s Peak RV-RA gradient, S 28 mm Hg Maximal regurgitant velocity 266 cm/s Systemic veins Estimated CVP 10 mm Hg Right ventricle RV pressure, S *38 mm Hg <30 Pulmonic valve Peak velocity, S 58.7 cm/s LEGEND: Mean values are shown as u=mean value. Asterisk (*) gunderson values outside specified normal range. Prepared and signed by Faith Marrufo [id number]
[2016-07-20] MEDS: CHLORHEXIDINE 0.12% (ORAL KIT) 15 ML CUP MT SCH (19:21)
[2016-07-20] MEDS: SODIUM CHLORIDE 0.9% FLUSH 10 ML FLUSH IV FLUSH SCH (19:21)
[2016-07-20] MEDS: DOCUSATE SODIUM 100 MG CAP PO SCH (19:58)
[2016-07-20] MEDS ORDERED: SODIUM BICARBONATE 8.4% INJ 50 MEQ/50 ML SYR IV ONE (20:30)
[2016-07-20] MEDS: VASOPRESSIN 40 U/100 ML D5W Titrate, Post Cardiac Surgery IV SCH ×2 (20:40)
[2016-07-20] MEDS: ACETAMINOPHEN 325 MG TAB PO PRN (21:56)
[2016-07-21] VITALS (20 sets, daily range): BP systolic 86–106; BP diastolic 51–58; PULSE 103–128; RESP 20–24; TEMP 99.3–100.8; O2SAT 92–97
[2016-07-21] MEDS: PROPOFOL 1000 MG/100 ML INJ 100 ML IV SCH ×4 (00:51→20:38)
[2016-07-21] MEDS: NOREPINEPHRINE-DEXTROSE DRIP 250 ML IV SCH ×3 (00:52→06:00)
[2016-07-21] MEDS: RESP: ALBUTEROL 2.5 MG/IPRATROPIUM 0.5 MG NEB (SCH) INH ×8 (01:33→23:42)
[2016-07-21] MEDS: SODIUM BICARBONATE 8.4% INJ 150 MEQ in DEXTROSE 5% IN WATE 1000ML INJ 1,000 ML IV SCH ×2 (03:16)
[2016-07-21] MEDS: CHLORHEXIDINE GLUCONATE 2 % 1 PACK (2 CLOTHS) TOP SCH (03:17)
[2016-07-21] MEDS: PIPERACIL-TAZO 3.375 GM PREMIX 50 ML IV SCH ×2 (06:00→13:09)
[2016-07-21 06:34] LABS: INTERNATIONAL NORMALIZED RATIO 1.8 RATIO; PROTHROMBIN TIME - PATIENT 20.6 SEC (9.8-11.6)
[2016-07-21 06:54] LABS: BICARBONATE 19.7 MEQ/L (21.0-32.0); MAGNESIUM 1.2 MG/DL (1.5-2.5); POTASSIUM 3.5 MEQ/L (3.5-5.1); TOTAL BILIRUBIN ADULT 0.6 MG/DL (0.2-1.0)
[2016-07-21 06:56] LABS: CALCIUM-PROTEIN CORRECTED 6.6 MG/DL (8.5-10.1)
[2016-07-21 07:36] LABS: AUTOMATED NEUTROPHIL # 10.3 TH/MM3 (1.8-7.7); BASOPHIL % 0.3 % (0.0-2.0); EOSINOPHIL # 0.1 TH/MM3 (0-0.4); EOSINOPHIL % 0.6 % (0.0-4.0); HEMATOCRIT 32.7 % (39.0-51.0); LYMPHOCYTE # 0.3 TH/MM3 (1.0-4.8); MEAN CORPUSCULAR HEMOGLOBIN 30.9 PG (27.0-34.0); MEAN CORPUSCULAR HGB CONC 33.9 % (32.0-36.0); MONO % 2.5 % (0.0-8.0); NEUT % 93.6 % (16.0-70.0); PLATELET COUNT 124 TH/MM3 (150-450); RED CELL DISTRIBUTION WIDTH 13.8 % (11.6-17.2)
[2016-07-21 07:44] LABS: HEMO FLAGS AUTO DIFF
[2016-07-21 07:50] LABS: BANDS 29 % (0-6); METAMYELOCYTES 7 % (0-1); MYELOCYTES 1 % (0-0); NEUTROPHIL # MANUAL DIFF 10.1 TH/MM3 (1.8-7.7); PLATELET ESTIMATE SMEAR LOW (NORMAL); PLATELET MORPHOLOGY NORMAL (NORMAL); POLYS (SEG NEUTROPHILS) 55 % (16-70); SCAN/DIFF FINAL DIFF MANUAL; TOXIC GRANULATION 1+ (NORMAL); TOXIC VACUOLATION PRESENT (NONE SEEN); WBC DIFF SAMPLE 100
[2016-07-21 07:51] LABS: DOHLE BODIES PRESENT (NONE SEEN)
[2016-07-21] MEDS ORDERED: CALCIUM GLUCONATE INJ 2 GM in DEXTROSE 5% IN WATER 100ML INJ 100 ML IV ONE ×2 (08:00)
[2016-07-21] MEDS: DOCUSATE SODIUM 100 MG CAP PO SCH ×2 (09:00→20:38)
[2016-07-21] MEDS: SODIUM CHLORIDE 0.9% FLUSH 10 ML FLUSH IVF SCH (09:00)
[2016-07-21] MEDS: CHLORHEXIDINE 0.12% (ORAL KIT) 15 ML CUP MT SCH ×2 (09:21→20:10)
[2016-07-21] MEDS: SODIUM CHLORIDE 0.9% FLUSH 10 ML FLUSH IV FLUSH SCH ×2 (09:22→20:39)
[2016-07-21] MEDS: PANTOPRAZOLE SODIUM 40 MG VIAL IV SCH (09:22)
[2016-07-21] MEDS: ASPIRIN 81 MG CHEW TAB CHEW SCH (09:22)
--- NOTE | 2016-07-21 11:23 | EKG ---
Date Performed: 07/20/2016 Time Performed: 15:11:10 PTAGE: 71 years EKG: Sinus tachycardia with borderline 1st degree A-V block. Possible left anterior fascicular b lock Lateral T wave changes are nonspecific Borderline ECG PREVIOUS TRACING : 07/20/2016 09.06 DOCTOR: Jerel Mckinnon Interpretating Date/Time 07/21/2016 11:18:41
--- NOTE | 2016-07-21 11:30 | EKG ---
Date Performed: 07/20/2016 Time Performed: 09:06:54 PTAGE: 71 years EKG: Sinus tachycardia with sinus arrhythmia with frequent PVCs. Lead(s) unsuitable for analysis : V2 Possible left anterior fascicular block Left ventricular hypertrophy Lateral ST-T changes are pr obably due to ventricular hypertrophy Abnormal ECG NO PREVIOUS TRACING DOCTOR: Jerel Mckinnon Interpretating Date/Time 07/21/2016 11:22:51
[2016-07-21] MEDS: fentaNYL DRIP 250 ML IV SCH (11:35)
[2016-07-21] MEDS: VASOPRESSIN 40 U/100 ML D5W Titrate, Post Cardiac Surgery IV SCH ×2 (11:35)
[2016-07-21] MEDS ORDERED: NOREPINEPHRINE 4 MG/4 ML AMP ONE (11:41)
[2016-07-21] MEDS ORDERED: GLUCAGON 1 MG/ML VIAL OTHER PRN (12:45)
[2016-07-21] MEDS ORDERED: Vancomycin Consult Pharmacy 1 EA OTHER SCH (12:45)
[2016-07-21] MEDS ORDERED: DEXTROSE 50% IN WATER 50 ML VIAL(D50) IV PUSH PRN (12:45)
[2016-07-21] MEDS ORDERED: MAGNESIUM SULFATE 1 GM PREMIX 100 ML IV ONE (13:00)
[2016-07-21] MEDS: INSULIN NovoLIN REGULAR SUPPLEMENTAL SCALE SQ SCH ×2 (13:08→18:54)
[2016-07-21] MEDS: HYDROCORTISONE SOD SUCCINATE 100 MG VIAL IV PUSH SCH ×2 (13:09→20:38)
--- NOTE | 2016-07-21 13:13 | HHI.CCPN ---
Subjective Remarks/Hospital Course 71-year-old male. Date of admission 07/20/2016. Past records includes diabetes with neuropathy and nephropathy, hypertension, dyslipidemia, chronic pain syndrome, history of DVT/PE on chronic anticoagulation, peripheral vascular disease with history of AAA, and osteoporosis. Patient recently [place] 07/06/16. Patient sick contacts would include neighbor with "vital illness. Patient is to [facility] today with acute onset of diarrhea, hypoglycemia and chills. Upon arrival, patient was noted be acutely hypoxic and required a nonrebreather mask. Patient denies pleuritic chest pain , abdominal pain but positive for nausea and diarrhea. CT chest revealed bilateral lower lobe scarring, bilateral adrenal adenomas a nonspecific bowel gas pattern. Chest x-ray revealed no significant findings. Lab work included a lactic acid elevated 7.7, white blood cell count 12,000 in acute kidney injury with a creatinine of 3.0. Baseline around 1.5-2. Troponin was slightly elevated 0.14. EKG is currently pending. Upon arrival to [facility], patient was extremely mottled with rates in the 40s. Patient was emergently intubated please see note and a left IJ central line was placed. CT of the head, abdomen and pelvis currently pending. 07/21 Patient is sedated with Diprivan and Fentanyl and intubated. On Levophed 22 mics, Vasopressin and bicarb drip. BC from 07/20: all 4 bottles. Objective Vital Signs Date Time Temp Pulse Resp B/P Pulse Ox O2 Delivery O2 Flow Rate FiO2 07/21/16 12:23 95 50 07/21/16 06:00 128 07/21/16 04:00 100.4 24 97/55 07/20/16 14:00 Mechanical Ventilator 07/20/16 13:04 15 Intake and Output 07/20/16 07/20/16 07/21/16 08:00 16:00 00:00 Intake Total 1500 ml 1940 ml Output Total 400 ml Balance 1500 ml 1540 ml Result Diagram: 07/21/16 0608 07/21/16 0608 Other Results Laboratory Tests Test 07/20/16 07/20/16 07/20/16 07/20/16 13:50 14:00 15:00 18:47 Nasal Screen MRSA (PCR) MRSA NOT DETECTED Urine Color YELLOW Urine Turbidity CLOUDY Urine pH 5.5 Urine Specific [place] 1.022 Urine Protein 300 mg/dL Urine Glucose (UA) TRACE mg/dL Urine Ketones NEG mg/dL Urine Occult Blood LARGE Urine Nitrite NEG Urine Bilirubin NEG Urine Urobilinogen LESS THAN 2.0 MG/DL Urine Leukocyte Esterase MOD Urine RBC 6 /hpf Urine WBC 54 /hpf Urine WBC Clumps MOD Urine Squamous Epithelial 3 /hpf Cells Urine Uric Acid Crystals FEW /hpf Urine Amorphous Sediment RARE Urine Bacteria FEW /hpf Urine Mucus FEW /lpf Microscopic Urinalysis Comment CATH-CULTURE IND Blood Gas Puncture Site RENAE RT BRACHIAL Blood Gas Patient Temperature 98.6 98.6 Blood Gas HCO3 14 mmol/L 15 mmol/L Blood Gas Base Excess -13.9 mmol/L -10.7 mmol/L Blood Gas Oxygen Saturation 96 % 94 % Arterial Blood pH 7.09 7.29 Arterial Blood Partial 49 mmHg 31 mmHg Pressure CO2 Arterial Blood Partial 358 mmHg 100 mmHg Pressure O2 Arterial Blood Oxygen Content 17.2 Vol % 15.7 Vol % Arterial Blood 0.3 % 0.8 % Carboxyhemoglobin Arterial Blood Methemoglobin 2.1 % 2.5 % Blood Gas Hemoglobin 12.1 G/DL 11.8 G/DL Oxygen Delivery Device VENT VENTILATOR Blood Gas Ventilator Setting [facility]/16/525/8/1.2[facility]/ Blood Gas Inspired Oxygen 100 % 50 % Test 07/20/16 07/21/16 07/21/16 07/21/16 20:27 01:20 06:08 11:30 Lactic Acid Level 6.0 mmol/L 5.7 mmol/L 6.3 mmol/L Troponin I 0.26 NG/ML White Blood Count 11.0 TH/MM3 Red Blood Count 3.60 MIL/MM3 Hemoglobin 11.1 GM/DL Hematocrit 32.7 % Mean Corpuscular Volume 91.0 FL Mean Corpuscular Hemoglobin 30.9 PG Mean Corpuscular Hemoglobin 33.9 % Concent Red Cell Distribution Width 13.8 % Platelet Count 124 TH/MM3 Mean Platelet Volume 9.8 FL Neutrophils (%) (Auto) 93.6 % Lymphocytes (%) (Auto) 3.0 % Monocytes (%) (Auto) 2.5 % Eosinophils (%) (Auto) 0.6 % Basophils (%) (Auto) 0.3 % Neutrophils # (Auto) 10.3 TH/MM3 Lymphocytes # (Auto) 0.3 TH/MM3 Monocytes # (Auto) 0.3 TH/MM3 Eosinophils # (Auto) 0.1 TH/MM3 Basophils # (Auto) 0.0 TH/MM3 CBC Comment AUTO DIFF Differential Total Cells 100 Counted Neutrophils % (Manual) 55 % Band Neutrophils % 29 % Lymphocytes % 3 % Monocytes % 5 % Neutrophils # (Manual) 10.1 TH/MM3 Metamyelocytes 7 % Myelocytes 1 % Differential Comment FINAL DIFF MANUAL Toxic Granulation 1+ Toxic Vacuolation PRESENT Dohle Bodies PRESENT Platelet Estimate LOW Platelet Morphology Comment NORMAL Prothrombin Time 20.6 SEC Prothromb Time International 1.8 RATIO Ratio Activated Partial 49.0 SEC Thromboplast Time Sodium Level 135 MEQ/L Potassium Level 3.5 MEQ/L Chloride Level 100 MEQ/L Carbon Dioxide Level 19.7 MEQ/L Anion Gap 15 MEQ/L Blood Urea Nitrogen 47 MG/DL Creatinine 4.80 MG/DL Estimat Glomerular Filtration 12 ML/MIN Rate Random Glucose 275 MG/DL Calcium Level 5.7 MG/DL Protein Corrected Calcium 6.6 MG/DL Phosphorus Level 7.6 MG/DL Magnesium Level 1.2 MG/DL Total Bilirubin 0.6 MG/DL Aspartate Amino Transf 58 U/L (AST/SGOT) Alanine Aminotransferase 36 U/L (ALT/SGPT) Alkaline Phosphatase 32 U/L Total Protein 5.0 GM/DL Albumin 2.0 GM/DL Urine Random Creatinine 113.5 MG/DL Urine Random Sodium 62 MEQ/L Imaging Last Impressions Chest X-Ray 07/20/16 1417 Signed Impressions: Service Date/Time: Wednesday, July 20, 2016 14:32 - CONCLUSION: 1. Interval intubation and placement of left internal jugular central venous line with no pneumothorax. 2. Placement of nasogastric tube. 3. No acute cardiopulmonary disease. Alonzo Bradshaw MD Renal Ultrasound 07/20/16 0000 Signed Impressions: Service Date/Time: Wednesday, July 20, 2016 14:32 - CONCLUSION: 1. No acute findings. Renal ultrasound unremarkable. Bladder was not well-visualized. Jose Martin Valderrama MD Lower Extremity Ultrasound 07/20/16 0000 Signed Impressions: Service Date/Time: Wednesday, July 20, 2016 14:39 - CONCLUSION: Negative exam with no evidence of deep venous thrombosis. Alonzo Bradshaw MD Head CT 07/20/16 0000 Signed Impressions: Service Date/Time: Wednesday, July 20, 2016 18:21 - CONCLUSION: 1. No acute intracranial abnormalities. Mild mucosal thickening of the ethmoid air cells. Jose Martin Valderrama MD Chest CT 07/20/16 0000 Signed Impressions: Service Date/Time: Wednesday, July 20, 2016 11:28 - CONCLUSION: 1. Chronic scarring in the lung bases left greater than right. 2. No focal consolidation. 3. Bilateral adrenal masses left greater than right most consistent with adenomas. 4. Nonspecific bowel gas pattern noted in the upper abdomen with air-fluid levels in the small bowel. Alonzo Bradshaw MD Abdomen/Pelvis CT 07/20/16 0000 Signed Impressions: Service Date/Time: Wednesday, July 20, 2016 18:24 - CONCLUSION: 1. Lower abdominal ventral midline hernia containing loop of small bowel. Small bowel is mildly distended somewhat diffusely with fluid and air. Cannot exclude a low grade partial bowel obstruction in the area of herniation. 2. No abnormal fluid collections to suggest abscess. No free air or free fluid. 3. Basilar and dependent lung consolidation, left greater than right. Pneumonia could have this appearance. Small left effusion. 4. NG tip in stomach. Inferior vena cava filter present. Connelly catheter in bladder. Jose Martin Valderrama MD Objective Remarks GENERAL: Patient is 71 yo critically ill intubated and sedated. SKIN: Warm and dry. HEAD: Normocephalic. EYES: No scleral icterus. No injection or drainage. NECK: Supple, trachea midline. No JVD or lymphadenopathy. CARDIOVASCULAR: Regular rate and rhythm without murmurs, gallops, or rubs. RESPIRATORY: Breath sounds equal bilaterally. No accessory muscle use. GASTROINTESTINAL: Abdomen soft, non-tender, nondistended. Neuro: Sedated, intubated A/P Assessment and Plan Neuro/Psych: Peripheral neuropathy Chronic pain syndrome Patient is currently on propofol/fentanyl drips for sedation/analgesia while intubated Goal of RA SS -2 Daily sedation vacation when appropriate 07/20 CT brain: No acute intracranial abnormalities. CV: Elevated troponin Hypertension Dyslipidemia Lactic acidosis Peripheral vascular disease History of AAA Continue with pressors( Levo, Vaso) keep MAP>65mmHg Serial lactic acid monitoring Place on Stress dose steroids- HC 50mg IV Q8 Monitor CK/trop, Continue with ASA daily Echo showed EF 35-40% Resp: Acute hypoxemic respiratory failure Tobaccoism Change vent to AC RR 18, TV 500, PEEP: 5 and FIO2 40% check ABG Ventilator bundle Bronchodilator therapy every 4 hours with albuterol every 2 hours. Dyspnea Spontaneous breathing trials when clinically indicated CT chest 07/20 revealed left greater than right basilar scarring. Bilateral adrenal adenomas. No focal consolidation GI: Keep NPO OG tube t LIWS Protonix for GI prophylaxis Colace/as needed Senokot for bowel regimen CT abdomen reviewed. Gen surgery eval. Discussed with Dr. Roman : Monitor renal function, I/O's, avoid nephrotoxins Cr:4.80 today from 3.0 with UO: 225 ml since yesterday Renal is following. Change IVF SW+3amps bicarb @125ml/hr Will discuss with renal might need HD. 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 Pertinent cultures BC 07/20- GPC all 4 bottles Urine cx 07/20 : Pending Strep pneumonia nad Legionella urinary Ag pending Check Sputum cx, BC x 2 sets MSK: Osteoarthritis Holding vitamin D 1000 units by mouth daily. Access - Left IJ CVL placed 07/20, place art line Prophylaxis - GI - Protonix - DVT - SCD/heparin SQ -Doppler US LE negative for DVT Palliative care eval to asses with goals of care Patient is critically ill with resp failure, renal failure, septic shock and multiorgan injury. Prognosis guarded. Critical Care: The total critical care time was 30 minutes. Time to perform other separately billable procedures was not included in the critical care time. Marty Jones MD July 21, 2016 13:13
[2016-07-21] MEDS: SODIUM BICARBONATE 8.4% INJ 150 MEQ in WATER STERILE FOR INJ 850 ML IV SCH ×2 (14:16→20:38)
[2016-07-21 15:16] LABS: C. DIFF EPI 027 PRESUMPTIVE NEGATIVE (NEGATIVE); C. DIFF TOXIN PCR NEGATIVE (NEGATIVE)
[2016-07-21] MEDS: NOREPINEPHRINE INJ 4 MG in SODIUM CHLOR 0.9% 250 ML INJ 246 ML IV SCH ×2 (15:35→18:02)
--- NOTE | 2016-07-21 15:43 | PD.CONS ---
History of Present Illness Service Infectious Disease Consult Requested By Dr Jones Reason for Consult Evaluate patient with septic shock and (+) Primary Care Physician [facility] Diagnoses: History of Present Illness Patient seen and examined. Records reviewed. Patient is a 71-year-old male admitted to the hospital for acute onset of diarrhea, chills and hypoglycemia. Patient apparently working in the yard July 18 and July 19. He was doing okay except for complaints on his lower extremity which is apparently chronic and related to his peripheral vascular disease. That night, the noted that the patient was breathing hard. She asked the patient and he stated that he is not short of breath. He has not complained of any sore throat, has not been congested, and has eaten without any problem. He has not had any urinary complaints. That night apparently the couldn't sleep, and around 4:00 in the morning the patient woke up and stated that he wanted to go to the bathroom. Patient didn't make it, and had stool incontinence. He was noted to have some chills, and his blood sugars were low. He also had episode of vomiting. Patient was taken to the hospital, and since admission he is developed profound hypotension, and acidosis. He ended up getting intubated, and currently on Levophed and vasopressin. His white count is elevated, lactic acid elevated, and his creatinine is also quite elevated. His urine output has been low. Cultures done in the emergency room, are now reported as growing group A strep. Patient and his family had been on a cruise, and they have been back since July 06. Imaging studies included renal ultrasound which did not show any obstruction. Lower extremity Doppler showed no DVT. CT of the chest showed some scarring of lungs with no focal consolidation. CT of the abdomen and pelvis did not show any abscess. Imaging study of the brain did not show any acute disease. Infectious disease consultation has been requested to evaluate the patient. Review of Systems ROS Limitations: Clinical Condition, Intubated Constitutional: COMPLAINS OF: Fever, Chills Eyes: DENIES: Eye pain Ears, nose, mouth, throat: DENIES: Nasal discharge, Oral lesions, Throat pain, Ear Pain, Sinus Pain, Toothache Respiratory: COMPLAINS OF: Shortness of breath, DENIES: Cough Cardiovascular: DENIES: Chest pain, Palpitations Gastrointestinal: COMPLAINS OF: Diarrhea, Nausea, Vomiting, DENIES: Abdominal pain, Difficulty Swallowing Genitourinary: DENIES: Hematuria, Dysuria Musculoskeletal: DENIES: Joint pain Integumentary: DENIES: Rash Neurologic: DENIES: Headache Psychiatric: DENIES: Confusion ROS obtained from the Past Family Social History Allergies: Coded Allergies: No Known Allergies (Verified , 07/20/16) Past Medical History Hypertension Diabetes mellitus Ischemic heart disease Hyperlipidemia History of deep venous thrombosis Peripheral vascular disease Chronic kidney disease Arthritis Past Surgical History Bowel surgery Appendectomy Active Ordered Medications Tylenol [place] Albuterol Aspirin Colace Fentanyl Heparin Solucortef Morphine Levophed Zofran prn Protonix Zosyn Diprivan Senokot Vancomycin Vasopressin Social History Lives in [place], down here for the Winter, here since Nov and due back to return soon Has smoking history Occasional ETOH No illicit drugs Physical Exam Vital Signs Vital Signs Date Time Temp Pulse Resp B/P Pulse Ox O2 Delivery O2 Flow Rate FiO2 07/21/16 12:23 95 50 07/21/16 10:00 126 07/21/16 08:26 95 50 07/21/16 08:00 127 07/21/16 08:00 50 07/21/16 08:00 100.6 127 24 86/52 95 07/21/16 06:00 128 07/21/16 04:53 96 50 07/21/16 04:00 100 07/21/16 04:00 100.4 126 24 97/55 96 07/21/16 04:00 126 07/21/16 02:00 126 07/21/16 01:34 97 50 07/21/16 00:00 100.8 121 24 96/56 97 07/21/16 00:00 100 07/21/16 00:00 121 07/20/16 22:00 126 07/20/16 20:00 100 07/20/16 20:00 100.8 126 30 96/51 96 07/20/16 20:00 126 07/20/16 19:44 95 50 07/20/16 18:40 100 100 07/20/16 18:00 100.5 123 23 88/52 07/20/16 17:45 101.0 120 23 99/53 07/20/16 17:30 122 23 88/49 07/20/16 17:15 122 23 93/50 07/20/16 17:00 124 21 95/51 07/20/16 16:45 126 23 100/51 07/20/16 16:30 126 22 106/52 07/20/16 16:29 98 50 07/20/16 16:00 102.8 121 24 79/46 07/20/16 15:45 118 16 129/59 Physical Exam GENERAL: This is a well-nourished, well-developed male, sedated and intubated, looks dyspneic on the vent SKIN: Cool and dry. No generalized rash, no ecchymosis. HEAD: Atraumatic. Normocephalic. No temporal or scalp tenderness. EYES: [place] conjunctivae, no petechia or hemorrhage. Pupils equal round and reactive. Has scleral edema. No scleral icterus. No injection or drainage. ENT: Nose without bleeding, or purulent drainage. Endotracheal tube is in the mouth, has moist mucosa. NECK: Trachea midline. No JVD or lymphadenopathy. Supple, nontender, no meningeal signs. CARDIOVASCULAR: Regular rate and rhythm without murmurs, gallops, or rubs. Tachycardic RESPIRATORY: Breath sounds equal bilaterally. Has scattered rales. Decreased breath sounds at the bases. GASTROINTESTINAL: Abdomen soft, bowel sounds are present and normoactive. Mildly distended, no reaction to palpation. No hepato-splenomegaly, or palpable masses. MUSCULOSKELETAL: Extremities without clubbing, cyanosis, or edema. Feet cool. Has some redness on dorsum of L foot. No joint effusion, or edema noted. NEUROLOGICAL: Sedated on the vent PSYCH: Unable to assess LINE: LIJ with no evidence of infection : Connelly in place, urine looks clear Laboratory Laboratory Tests Test 07/20/16 07/20/16 07/21/16 07/21/16 18:47 20:27 01:20 06:08 Blood Gas Puncture Site RT BRACHIAL Blood Gas Patient Temperature 98.6 Blood Gas HCO3 15 Blood Gas Base Excess -10.7 Blood Gas Oxygen Saturation 94 Arterial Blood pH 7.29 Arterial Blood Partial 31 Pressure CO2 Arterial Blood Partial 100 Pressure O2 Arterial Blood Oxygen Content 15.7 Arterial Blood 0.8 Carboxyhemoglobin Arterial Blood Methemoglobin 2.5 Blood Gas Hemoglobin 11.8 Oxygen Delivery Device VENTILATOR Blood Gas Ventilator Setting PRVC/AC Blood Gas Inspired Oxygen 50 Lactic Acid Level 6.0 5.7 6.3 Troponin I 0.26 White Blood Count 11.0 Red Blood Count 3.60 Hemoglobin 11.1 Hematocrit 32.7 Mean Corpuscular Volume 91.0 Mean Corpuscular Hemoglobin 30.9 Mean Corpuscular Hemoglobin 33.9 Concent Red Cell Distribution Width 13.8 Platelet Count 124 Mean Platelet Volume 9.8 Neutrophils (%) (Auto) 93.6 Lymphocytes (%) (Auto) 3.0 Monocytes (%) (Auto) 2.5 Eosinophils (%) (Auto) 0.6 Basophils (%) (Auto) 0.3 Neutrophils # (Auto) 10.3 Lymphocytes # (Auto) 0.3 Monocytes # (Auto) 0.3 Eosinophils # (Auto) 0.1 Basophils # (Auto) 0.0 CBC Comment AUTO DIFF Differential Total Cells 100 Counted Neutrophils % (Manual) 55 Band Neutrophils % 29 Lymphocytes % 3 Monocytes % 5 Neutrophils # (Manual) 10.1 Metamyelocytes 7 Myelocytes 1 Differential Comment FINAL DIFF MANUAL Toxic Granulation 1+ Toxic Vacuolation PRESENT Dohle Bodies PRESENT Platelet Estimate LOW Platelet Morphology Comment NORMAL Prothrombin Time 20.6 Prothromb Time International 1.8 Ratio Activated Partial 49.0 Thromboplast Time Sodium Level 135 Potassium Level 3.5 Chloride Level 100 Carbon Dioxide Level 19.7 Anion Gap 15 Blood Urea Nitrogen 47 Creatinine 4.80 Estimat Glomerular Filtration 12 Rate Random Glucose 275 Calcium Level 5.7 Protein Corrected Calcium 6.6 Phosphorus Level 7.6 Magnesium Level 1.2 Total Bilirubin 0.6 Aspartate Amino Transf 58 (AST/SGOT) Alanine Aminotransferase 36 (ALT/SGPT) Alkaline Phosphatase 32 Total Protein 5.0 Albumin 2.0 Test 07/21/16 07/21/16 11:30 14:40 Urine Eosinophils NONE SEEN Urine Osmolality 324 Urine Random Creatinine 113.5 Urine Random Sodium 62 Stool C. difficile Toxin (PCR) NEGATIVE Stl C. difficile Toxin PRESUMPTIVE Epiderm 027 NEGATIVE Total Creatine Kinase 2214 Troponin I 0.28 Date/Time Procedure Status Source Growth 07/21/16 14:45 Aerobic Blood Culture Received Blood Peripheral Pending 07/21/16 14:45 Anaerobic Blood Culture Received Blood Peripheral Pending 07/21/16 11:30 Rotavirus Antigen - Final Complete Stool Stool NEGATIVE - ROTAVIRUS ANTIGEN IS ABSEN... 07/21/16 11:30 Legionella Antigen - Final Complete Urine Catheterized Urine PRESUMPTIVE NEGATIVE FOR LEGIONELLA P... 07/21/16 11:30 Streptococcus pneumoniae Antigen (M - Final Complete Urine Catheterized Urine PRESUMPTIVE NEGATIVE FOR STREPTOCOCCU... 07/21/16 11:30 Cryptosporidium Exam Received Stool Stool Pending 07/21/16 11:30 Stool Pus (SAVAGE) Received Stool Stool Pending 07/21/16 11:30 Giardia Antigen (SAVAGE) Received Stool Stool Pending 07/21/16 11:30 Received Stool Stool Pending 07/20/16 14:00 Urine Culture - Preliminary Resulted Urine Catheterized Urine NO GROWTH IN 24 HOURS. 07/20/16 09:30 Aerobic Blood Culture - Preliminary Resulted Blood Peripheral Gram Positive Cocci 07/20/16 09:30 Anaerobic Blood Culture - Preliminary Resulted Gram Positive Cocci Result Diagram: 07/21/16 0608 07/21/16 0608 Imaging RADIOLOGY STUDIES/FILMS REVIEWED Chest X-Ray 07/20/16 1417 Signed Impressions: Service Date/Time: Wednesday, July 20, 2016 14:32 - CONCLUSION: 1. Interval intubation and placement of left internal jugular central venous line with no pneumothorax. 2. Placement of nasogastric tube. 3. No acute cardiopulmonary disease. Alonzo Bradshaw MD Renal Ultrasound 07/20/16 0000 Signed Impressions: Service Date/Time: Wednesday, July 20, 2016 14:32 - CONCLUSION: 1. No acute findings. Renal ultrasound unremarkable. Bladder was not well-visualized. Jose Martin Valderrama MD Lower Extremity Ultrasound 07/20/16 Signed Impressions: Service Date/Time: Wednesday, July 20, 2016 14:39 - CONCLUSION: Negative exam with no evidence of deep venous thrombosis. Alonzo Bradshaw MD Head CT 07/20/16 0000 Signed Impressions: Service Date/Time: Wednesday, July 20, 2016 18:21 - CONCLUSION: 1. No acute intracranial abnormalities. Mild mucosal thickening of the ethmoid air cells. Jose Martin Valderrama MD Chest CT 07/20/16 0000 Signed Impressions: Service Date/Time: Wednesday, July 20, 2016 11:28 - CONCLUSION: 1. Chronic scarring in the lung bases left greater than right. 2. No focal consolidation. 3. Bilateral adrenal masses left greater than right most consistent with adenomas. 4. Nonspecific bowel gas pattern noted in the upper abdomen with air-fluid levels in the small bowel. Alonzo Bradshaw MD Abdomen/Pelvis CT 07/20/16 0000 Signed Impressions: Service Date/Time: Wednesday, July 20, 2016 18:24 - CONCLUSION: 1. Lower abdominal ventral midline hernia containing loop of small bowel. Small bowel is mildly distended somewhat diffusely with fluid and air. Cannot exclude a low grade partial bowel obstruction in the area of herniation. 2. No abnormal fluid collections to suggest abscess. No free air or free fluid. 3. Basilar and dependent lung consolidation, left greater than right. Pneumonia could have this appearance. Small left effusion. 4. NG tip in stomach. Inferior vena cava filter present. Connelly catheter in bladder. Jose Martin Valderrama MD Assessment and Plan Assessment and Plan IMPRESSION Group A Strepo sepsis, with shock, MOSF, present on admission, source? - ?primary bacteremia Respiratory failure Renal failure Known DM, HTN, PVD, CAD RECOMMENDATION Repeat C/S Echo IV Unasyn Clindamycin - could help in severe sepsis in GAS infection Got dose of Vanco BP support Renal following for ADALID Monitor progress I will follow along with you Thank you for this consultation Discussed Condition With Discussed with RN Spoke at length with and several children and answered all their questions Patient critically ill Ceci Niño MD July 21, 2016 15:43
[2016-07-21 15:44] LABS: CKMB 26.6 NG/ML (0.5-3.6)
[2016-07-21 16:41] LABS: BLOOD GAS BASE EXCESS -9.9 mmol/L (-2-2); BLOOD GAS CARBOXYHEMOGLOBIN 0.7 % (0-4); BLOOD GAS HCO3 17 mmol/L (22-26); BLOOD GAS METHEMOGLOBIN 1.7 % (0-2); BLOOD GAS O2 HGB SATURATION 81 % (90-100); BLOOD GAS OXYGEN CONTENT 12.9 Vol % (12.0-20.0); BLOOD GAS PCO2 48 mmHg (38-42); BLOOD GAS PO2 56 mmHg (61-120); BLOOD GAS TOTAL HGB 11.3 G/DL (12.0-16.0); CRITICAL VALUE YES; OXYGEN DEVICE VENTILATOR; TEMP CORR TO 98.6
[2016-07-21 16:42] LABS: DRAW SITE RT RADIAL; FIO2 50 %; NUMBER OF ARTERIAL PUNCTURES 1; STAT NO; ULNAR PULSE PRESENT; VENT SETTINGS AC 18/800/PEEP8
[2016-07-21] MEDS: CLINDAMYCIN INJ 900 MG in SODIUM CHLORIDE 0.9% INJ 100 ML IV SCH ×2 (16:55→22:58)
--- NOTE | 2016-07-21 16:58 | HHI.NPPN ---
Subjective History of Present Illness 71-year-old male with past medical history of diabetes mellitus, hypertension, ischemic heart disease, peripheral neuropathy, chronic kidney disease, history of deep vein thrombosis, hyperlipidemia was brought to the hospital because of generalized weakness, confusion and vomiting and diarrhea. I was called to see the patient because of elevated BUN and creatinine. The patient has history of acute kidney injury in the past and chronic kidney disease. His creatinine was around 1.2 to 1.4, this was in 2012. Additional Remarks Patient remain on the vent. and sedated and on pressors. Review of Systems General General Remarks Intubated and sedated. Objective Data Data 07/20/16 07/21/16 19:00 07:00 Intake Total 1500 ml 4501 ml Output Total 775 ml Balance 1500 ml 3726 ml Intake IV Total 1500 ml 4401 ml Tube Irrigant 100 ml Output Urine Total 225 ml Gastric Drainage Total 550 ml # Bowel Movements 5 Vital Signs Date Time Temp Pulse Resp B/P Pulse Ox O2 Delivery O2 Flow Rate FiO2 07/21/16 16:00 116 07/21/16 16:00 100.4 116 20 104/55 92 07/21/16 16:00 50 07/21/16 14:00 126 07/21/16 12:23 95 50 07/21/16 12:00 100.4 122 24 86/51 94 07/21/16 12:00 122 07/21/16 12:00 50 07/21/16 10:00 126 07/21/16 08:26 95 50 07/21/16 08:00 127 07/21/16 08:00 50 07/21/16 08:00 100.6 127 24 86/52 95 07/21/16 06:00 128 07/21/16 04:53 96 50 07/21/16 04:00 100 07/21/16 04:00 100.4 126 24 97/55 96 07/21/16 04:00 126 07/21/16 02:00 126 07/21/16 01:34 97 50 07/21/16 00:00 100.8 121 24 96/56 97 07/21/16 00:00 100 07/21/16 00:00 121 07/20/16 22:00 126 07/20/16 20:00 100 07/20/16 20:00 100.8 126 30 96/51 96 07/20/16 20:00 126 07/20/16 19:44 95 50 07/20/16 18:40 100 100 07/20/16 18:00 100.5 123 23 88/52 07/20/16 17:45 101.0 120 23 99/53 07/20/16 17:30 122 23 88/49 07/20/16 17:15 122 23 93/50 07/20/16 17:00 124 21 95/51 -: 07/21/16 0608 07/21/16 0608 Microbiology 07/21/16 Rotavirus Antigen - Final, Complete NEGATIVE - ROTAVIRUS ANTIGEN IS ABSEN... 07/21/16 , Received Pending 07/21/16 Cryptosporidium Exam, Received Pending 07/21/16 Stool Pus (SAVAGE), Received Pending 07/21/16 Giardia Antigen (SAVAGE), Received Pending 07/21/16 Legionella Antigen - Final, Complete PRESUMPTIVE NEGATIVE FOR LEGIONELLA P... 07/21/16 Streptococcus pneumoniae Antigen (M - Final, Complete PRESUMPTIVE NEGATIVE FOR STREPTOCOCCU... 07/21/16 Aerobic Blood Culture, Received Pending 07/21/16 Anaerobic Blood Culture, Received Pending 07/21/16 Aerobic Blood Culture, Received Pending 07/21/16 Anaerobic Blood Culture, Received Pending Physical Exam General Appearance Remarks Intubated and sedated. Eyes Eye Exam: Pupils Equal Throat Throat Exam: Oral Mucosa [place] & Moist Neck Neck Exam: Neck Supple Pulmonary Resp Exam: Rhonchi, Decreased Bases, Diminished Breath Sounds, Poor Inspiratory Effort Cardiology CV Exam: Regular, Normal Sinus Rhythm Gastrointestinal/Abdomen GI Exam: Soft, Non-Tender, Bowel Sounds Present Extremeties Extremities Exam: Trace Edema Neurologic Neuro Exam: Unresponsive, Sedated Assessment/Plan Assessment Summary: ADALID/Acute Renal Failure Electrolyte Assessment: Metabolic Acidosis Problem List: (1) Diabetes mellitus with neuropathy (2) Leukocytosis (3) Peripheral vascular disease (4) Severe sepsis with acute organ dysfunction (5) History of DVT (deep vein thrombosis) (6) Hypoxia (7) Acidosis (8) Lactic acidosis Plan Patient has low urine out put. Creatinine increased to 4.8, K is normal. ABG done now and PH is 7.19, mixed acidosis, Base access is 9.9 BP is still low, on multiple pressors. BC results noted, seen by ID. Now on Unasyn and Clindamycin. D/W the family in detail about possible Dialysis. I will D/W Dr. Jones also. Continue antibiotics and follow BMP. Problem Qualifiers (1) Diabetes mellitus with neuropathy: Qualified Code: E11.40 - Type 2 diabetes mellitus with diabetic neuropathy, unspecified snf insulin use status (2) Leukocytosis: Qualified Code: D72.829 - Leukocytosis, unspecified type Frank Magana MD July 21, 2016 16:58
[2016-07-21] MEDS: AMPICILLIN-SULBACTAM INJ 1,500 MG in SODIUM CHLORIDE 0.9% INJ 100 ML IV SCH (17:03)
--- NOTE | 2016-07-21 17:08 | PD.CONS ---
Consult Service Palliative Care . Consult Requested By Dr. Jones . Primary Care Physician [facility] . Reason for Consultation a. To assist with evaluation and management of symptoms including: dyspnea; agitation; pain; encephalopathy b. To assist medical decision maker(s) with: better understanding of current medical conditions; weighing benefits/burdens of medical treatment options; making medical treatment decisions. . HPI History of Present Illness Mr. Lemus is a 71-year-old male [place] with a known hx of insulin- dependent diabetes mellitus; peripheral neuropathy; acute kidney injury; congestive heart failure; hypertension; deep venous thrombosis on chronic Coumadin therapy; pulmonary embolus; peripheral vascular disease; abdominal aortic aneurysm; tobacco abuse; and osteoarthritis; who was brought to the emergency department by EMS after being called to the patient's residence due to shortness of breath, stool incontinence, and ultimately a blood sugar of 35. Per the patient's , the patient was in his usual state of health all day on 07/19 and through most of the day on 07/20. In fact, the patient had been doing yard work and some patio work on both of those days. On the evening of he had the sudden onset of shortness of breath and possibly some chills. His wanted to bring him to the emergency department at that time but the patient refused. The patient was able to fall asleep, but he awoke around 4 AM then wandered toward the living room where he was suddenly incontinent of stool and appeared confused. called 911 and it was when the paramedics arrived at his blood sugar was found to be 35. The patient was given glucose and the blood sugar came up. The patient became verbal and denied chest pain and abdominal pain. The patient normally sees Dr. Magallon at the local [place] clinic for most of his health care needs. reports that he does not manage his diabetes very well. He only checks blood sugars about twice a day and is not good about following a diabetic diet. Fasting blood sugars are normally in the 200s to 300s. Patient has known severe peripheral arterial disease and suffers from significant claudication. An attempt was made at angioplasty at one point in time but this failed. He had one episode of congestive heart failure symptoms about 4 years ago and also in acute kidney injury around that time but has done reasonably well since. The couple had just returned from a [employer] cruise which took place from 06/28/16 through 07/06/16. is not aware of any particular illness or epidemic on that cruise. The couple was also planning their trip to their other home in [facility]. The tells me the patient has been on total disability through the [facility]. Apparently, most of his illnesses are attributed to Agent [place]y exposure. Mr. Lemus has ongoing lower extremity pain. This appears to be a combination of claudication from his peripheral vascular disease and also peripheral neuropathy presumably related to his diabetes. At one point he was on opiate analgesics to help control this. He discontinued oxycodone and tramadol because he did not like the side effects. Initial vital signs in the emergency department were as follows: Temperature 97.8; pulse 67; respiratory rate 24; blood pressure 96/60; pulse oximetry 92% Initial examination by the emergency department physician noted the following: Patient was somewhat mottled on arrival. Heart rate was rapid but regular. Bibasilar arousals were noted. Patient was awake and alert. Remainder the physical exam was unremarkable. Initial diagnostic testing revealed the following: * CBC showed WBC 12.8; hemoglobin 15.4; platelet count 266 * Coagulation profile showed PT 16.7; INR 1.5; PTT 33 * Chemistry profile showed sodium 143; potassium 3.6; chloride 105; CO2 18.7; anion gap 19; BUN 27; creatinine 3.0; GFR 21; glucose 62; calcium 9.4; magnesium 1.8 * Liver function tests showed total bilirubin 1.1; AST 39; ALT 34; alkaline phosphatase 91; total protein 9.0; albumin 3.9 * Cardiac serology revealed Troponin was 0.14; B-type natriuretic peptide 207 * Arterial blood gases on a nonrebreather mask at 100% FiO2 showed pH 7.34; PCO2 21; PO2 118; bicarbonate 11; base excess -13.7 * EKG revealed sinus bradycardia with frequent PVCs * Chest x-ray showed mild scarring with no acute cardiopulmonary disease * Head CT was unremarkable * Lower extremity ultrasound showed no evidence of DVT * CT of the abdomen/pelvis showed: A lower abdominal ventral hernia containing a loop of bowel. There was diffusely distended small bowel likely an ileus but no definite obstruction in the area of herniation. Basilar and dependent lung consolidation were noted left greater than right. IVC filter was noted. The patient's respiratory status deteriorated. He was placed on a nonrebreather mask. He was then transported to the main emergency department at [place]. When he arrived there he was mottled with a respiratory rate in the 40s. He was emergently intubated. A left internal jugular line was placed.. The cause of the patient's rather garcia decompensation was unclear. Critical care was consulted and the patient was transferred to the surgical intensive care unit. Nephrology and infectious disease were also consulted. The patient remains critically ill in the surgical intensive care unit. He remains intubated, mechanically ventilated, and sedated. Off sedation he had been quite agitated. Temperature was as high as 102.8 at 4 PM on 07/20. It has never been under 100 since that time. Systolic blood pressures have been primarily in the 80s to 90s in spite of being on 2 pressor agents. Lactic acid which was initially elevated at 7.7, is still high at 6.3 this morning. Serial troponins were elevated at 0.14, 0.26, and 0.28. Total CK was elevated at 2214 but the CK-MB percent was only 1.2. Creatinine has gone up from 3.0-4.8 in the last 24 hours. Gram-positive cocci are growing out of both blood culture bottles. . Function/Cognitive Trajectory Though the patient has significant lower extremity peripheral artery disease and poorly controlled diabetes, he has remained remarkably functional. As noted above he was doing yard work and patio work earlier on the same day he got acutely ill. He does not use a walker or cane for ambulation. He does have an electric scooter and when he goes to the store he tends to use one of the electric carts. Family tells me there is been no significant cognitive decline. He had been trying to lose weight intentionally and was somewhat successful until he went on the cruise in late June and gain some of the weight back. He has had some complaints of dizziness for a few weeks. Reportedly, he had a significant workup for this through the [facility] and was found to have normal carotid arteries. . Review of Systems ROS Limitations: Clinical Condition (patient is intubated, mechanically ventilated, and sedated. Review of systems comes from the patient's family and from available medical records.) Constitutional: COMPLAINS OF: Chills, Dizziness, Pain, Generalized weakness, DENIES: Fever, Weight gain, Weight loss, Change in appetite, Night Sweats Endocrine: DENIES: Polydipsia, Polyuria, Polyphagia Eyes: DENIES: Diplopia, Vision loss (wears reading glasses) Ears, nose, mouth, throat: COMPLAINS OF: Hearing loss, DENIES: Tinnitus, Throat pain, Epistaxis Respiratory: COMPLAINS OF: Snoring, Shortness of breath, DENIES: Apneas, Cough , Hemoptysis, Sputum production Cardiovascular: COMPLAINS OF: Dyspnea on Exertion, Claudication, DENIES: Chest pain, Palpitations, Syncope Gastrointestinal: COMPLAINS OF: Abdominal pain, Bloody stools, Diarrhea, Nausea , Dyspepsia or heartburn Genitourinary: DENIES: Urinary frequency, Urinary incontinence, Urgency, Hematuria, Dysuria, Nocturia Musculoskeletal: COMPLAINS OF: Joint pain, Decreased range of motion, DENIES: Neck pain Integumentary: DENIES: Pruritus, Non-healing sores Hematologic/Lymphatics: DENIES: Bruising, Lymphadenopathy Immunologic/Allergic: DENIES: Eczema Neurologic: COMPLAINS OF: Abnormal gait, Paresthesias, Seizures, Tremor, Poor Balance, DENIES: Headache, Localized weakness Psychiatric: COMPLAINS OF: Confusion, Agitation, DENIES: Depression, Hallucinations Past Family Social History Coded Allergies: No Known Allergies (Verified , 07/20/16) Past Medical History * Hypertension * Diabetes mellitus * Diabetic neuropathy * History of acute kidney injury * History of Deep venous thrombosis on Coumadin * History of pulmonary embolus * Severe lower extremity peripheral vascular disease with claudication * Abdominal aortic aneurysm * History of congestive heart failure * Osteoarthritis . Past Surgical History * Laparotomy for ruptured appendix approximately 2006 * Surgery for bowel obstruction following ruptured appendix * Inferior vena cava filter placement * Mesh screen placement in the abdomen * Colonoscopy in 2014 or 2015 (reported to be normal) * Attempted angioplasty of lower extremity vascular occlusions. . Reported Medications * Lisinopril 20 mg tablets; one by mouth at at bedtime * Warfarin 2 mg tablet; one by mouth daily * Amlodipine 5 mg tablet 1 by mouth daily * Simvastatin 20 mg tablets; one by mouth at at bedtime * Insole and aspartame sliding scale * Lantus in swollen; 70 units subcutaneous daily at bedtime * Aspirin 81 mg tablet to be chewed daily * Vitamin D 1000 unit tab . Current Medications Medications (Trade) Dose Ordered Sig/Erica Route Start Time Stop Time Status Last Admin (NS Flush) 2 ml UNSCH PRN IV FLUSH 07/20/16 11:15 (NS Flush) 2 ml BID IV FLUSH 07/20/16 21:00 07/21/16 09:22 (Tylenol) 650 mg Q6H PRN PO 07/20/16 11:15 07/20/16 21:56 ([place] 5-325 Mg) 1 tab Q4H PRN PO 07/20/16 11:15 (Morphine Inj) 2 mg Q2H PRN IV 07/20/16 11:15 (Protonix Inj) 40 mg DAILY IV 07/21/16 09:00 07/21/16 09:22 (Zofran Inj) 4 mg Q6H PRN IV 07/20/16 11:15 (Colace) 100 mg BID PO 07/20/16 21:00 07/20/16 19:58 (Senokot) 17.2 mg Q12H PRN PO 07/20/16 11:15 Miscellaneous Information 1 Q361D XX 07/20/16 11:15 (Chlorhexidine 2% Cloth) 3 pack Taper DAILY@04 TOP 07/21/16 04:00 07/17/17 03:59 07/21/16 03:17 (Chlorhexidine 2% Cloth) 3 pack UNSCH PRN TOP 07/20/16 11:15 (Brethine Inj) 1 mg UNSCH PRN SQ 07/20/16 13:15 (NS Flush) DAILY IVF 07/21/16 09:00 Sodium Chloride UNSCH PRN IVF 07/20/16 14:30 Piperacillin Sod/ Tazobactam Sod 50 ml @ 100 mls/hr Q8H IV 07/20/16 15:00 07/21/16 13:09 (Vancomycin Consult Pharmacy) 0 ml @ 0 mls/hr UNSCH OTHER 07/20/16 14:30 Chlorhexidine Gluconate 15 ml 15 ml BID@08,20 MT 07/20/16 20:00 07/21/16 09:21 Propofol 100 ml @ 0 mls/hr TITRATE IV 07/20/16 15:00 07/21/16 14:24 (fentaNYL DRIP) 250 ml @ 0 mls/hr TITRATE IV 07/20/16 14:30 07/21/16 11:35 Aspirin 81 mg 81 mg DAILY CHEW 07/21/16 09:00 07/21/16 09:22 Vasopressin 40 units/Dextrose 100 ml @ 0 mls/hr TITRATE IV 07/20/16 20:30 07/21/16 11:35 (Sodium Bicarbonate 8.4% Inj/Sterile Water For Inj) 1,000 ml @ 125 mls/hr Q8H IV 07/21/16 14:00 07/21/16 14:16 (SoluCORTEF INJ) 50 mg Q8HR IV PUSH 07/21/16 14:00 07/21/16 13:09 (D50w (Vial) Inj) 25 ml UNSCH PRN IV PUSH 07/21/16 12:45 (Glucagon Inj) 1 mg UNSCH PRN OTHER 07/21/16 12:45 (NovoLIN R SUPPLEMENTAL SCALE) 1 Q6H SQ 07/21/16 13:00 07/21/16 13:08 Heparin Sodium (Porcine) 5000 units 5,000 units Q12HR SQ 07/21/16 21:00 Norepinephrine Bitartrate 4 mg/ Sodium Chloride 250 ml @ 0 mls/hr TITRATE IV 07/21/16 14:36 07/21/16 15:35 (Cleocin Inj/NS Inj) 106 ml @ 212 mls/hr Q6H IV 07/21/16 17:00 . Family History * The patient's father of metastatic prostate cancer * The patient's mother after being hit by a car * 1 sister of unknown causes * 1 brother in a motor vehicle accident * The patient's daughter has diabetes mellitus. . Substance Use Tobacco: The patient was a one to 2 pack per day smoker for most of his life. He quit smoking approximately 4 years ago. Alcohol: The patient was a "heavy drinker" for most of his life per his . He quit approximately 10 years ago Prescription med abuse: No prescription medication abuse. Illicits: No known use of illicits. . Psychosocial History The patient is originally from [place], [place]. They have been spending some winter times in [place] for many many years. As of about 14 years ago they started remaining in [place] for approximately 9 months. They still have a home in [facility] [place]. The patient completed high school and has taken some college courses. He is a [place] and has had exposure to agent orange for which she is on 100 % VA disability. 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 The patient has been to his 48 years. It is his only marriage. The couple have 3 daughters. Malika lives at home with her father and mother. Dania normally lives in [facility] but is now down here to support her parents. Lamar normally lives in [place] but flew in today to be with her family. The patient had 2 brothers one of whom is . The patient had 4 sisters, one of whom is . . Spiritual/Cultural Factors The patient was raised in a Hindu family. He now identifies himself as Temple. reports that neither of them are regular churchgoers and that methodist and spirituality are not playing a very important role in their lives. . Living Will: Completed, but not made available Health Care Surrogate: Completed, but not made available Durable Power of Sash Maker: Never completed Date completed: will bring in the advance directive. Date of completion is unknown at this time. . Health Care Surrogate(s): will bring in a copy of the advance directive. She reports that she is listed as the designated health care surrogate. . Documented care wishes: will bring in a copy of the advance directive. At this point we do not have any written documentation of the patient's health care goals/preferences. . Today's verbally stated goals: Patient is intubated, mechanically ventilated, and sedated. He is unable to verbally provide his own health care goals/preferences at this time. . Family/friends goals: During her family conference today, the patient's and 2 of the daughters have indicated that the patient, at this point in his illness would want aggressive care. They do not believe he would want to be maintained on life support if he were going to end up being dependent on dialysis or dependent for most of his ADLs. . Ethical and Legal Issues Patient is currently incapacitated to make his own health care decisions. It is uncertain if he will regain capacity. . Physical Exam Vital Signs Date Time Temp Pulse Resp B/P Pulse Ox O2 Delivery O2 Flow Rate FiO2 07/21/16 16:00 116 07/21/16 16:00 100.4 116 20 104/55 92 07/21/16 16:00 50 07/21/16 14:00 126 07/21/16 12:23 95 50 07/21/16 12:00 100.4 122 24 86/51 94 07/21/16 12:00 122 07/21/16 12:00 50 07/21/16 10:00 126 07/21/16 08:26 95 50 07/21/16 08:00 127 07/21/16 08:00 50 07/21/16 08:00 100.6 127 24 86/52 95 07/21/16 06:00 128 07/21/16 04:53 96 50 07/21/16 04:00 100 07/21/16 04:00 100.4 126 24 97/55 96 07/21/16 04:00 126 07/21/16 02:00 126 07/21/16 01:34 97 50 07/21/16 00:00 100.8 121 24 96/56 97 07/21/16 00:00 100 07/21/16 00:00 121 07/20/16 22:00 126 07/20/16 20:00 100 07/20/16 20:00 100.8 126 30 96/51 96 07/20/16 20:00 126 07/20/16 19:44 95 50 07/20/16 18:40 100 100 07/20/16 18:00 100.5 123 23 88/52 07/20/16 17:45 101.0 120 23 99/53 07/20/16 17:30 122 23 88/49 07/20/16 17:15 122 23 93/50 07/20/16 17:00 124 21 95/51 07/20/16 16:45 126 23 100/51 07/20/16 16:30 126 22 106/52 07/20/16 16:29 98 50 . 07/20/16 07/21/16 19:00 07:00 Intake Total 1500 ml 4501 ml Output Total 775 ml Balance 1500 ml 3726 ml Intake IV Total 1500 ml 4401 ml Tube Irrigant 100 ml Output Urine Total 225 ml Gastric Drainage Total 550 ml # Bowel Movements 5 . Exam CONSTITUTIONAL/GENERAL: This is an overweight male intubated/mechanically ventilated/sedated in a surgical intensive care unit bed. He does not awaken to voice or examination. No obvious distress. TUBES/LINES/DRAINS: Orotracheal tube; orogastric tube; left internal jugular central line; peripheral IV; SCDs; Connelly catheter SKIN: No jaundice, rashes, or lesions. No wounds seen anteriorly. Skin temperature warm but not diaphoretic. HEAD: Atraumatic. Normocephalic. EYES: Pupils equal and round and reactive. Unable to assess extraocular motions. No scleral icterus. No injection or drainage. Fundi not examined. ENT: Unable to assess hearing. Nose without bleeding or purulent drainage. Oropharynx difficult to visualize due to intubations -- no obvious erythema, lesions, exudate. NECK: Trachea midline. No palpable thyroid enlargement or nodularity though neck is obese and difficult to palpate. CARDIOVASCULAR: Borderline tachycardia; regular rhythm without murmurs, gallops , or rubs. No JVD. Lower extremity peripheral pulses difficult to palpate. RESPIRATORY/CHEST: Symmetric, unlabored respirations. Clear to auscultation. Breath sounds equal bilaterally but air movement diminished at bases. No wheezes , rales, or rhonchi. GASTROINTESTINAL: Abdomen soft, non-tender, nondistended. No hepato-splenomegaly , or palpable masses. No guarding. Bowel sounds hypoactive. GENITOURINARY: Without palpable bladder distension. Connelly catheter in place. No penile or scrotal edema. MUSCULOSKELETAL: Extremities without clubbing, cyanosis, or edema. No joint tenderness or effusion noted. No calf tenderness. No mottling. LYMPHATICS: No palpable cervical or supraclavicular adenopathy. NEUROLOGICAL: Sedateddoes not stir to voice or examination. No spontaneous movements. Withdraws to noxious stimulus. PSYCHIATRIC: Unable to assess due to sedation.. . Diagnostic Tests Laboratory Laboratory Tests Test 07/20/16 07/20/16 07/20/16 07/20/16 09:15 09:30 09:33 12:10 White Blood Count 12.8 TH/MM3 (4.0-11.0) Red Blood Count 4.99 MIL/MM3 (4.50-5.90) Hemoglobin 15.4 GM/DL (13.0-17.0) Hematocrit 44.8 % (39.0-51.0) Mean Corpuscular Volume 89.8 FL (80.0-100.0) Mean Corpuscular Hemoglobin 30.9 PG (27.0-34.0) Mean Corpuscular Hemoglobin 34.4 % Concent (32.0-36.0) Red Cell Distribution Width 12.7 % (11.6-17.2) Platelet Count 266 TH/MM3 (150-450) Mean Platelet Volume 8.2 FL (7.0-11.0) Neutrophils (%) (Auto) 87.7 % (16.0-70.0) Lymphocytes (%) (Auto) 5.9 % (9.0-44.0) Monocytes (%) (Auto) 5.7 % (0.0-8.0) Eosinophils (%) (Auto) 0.0 % (0.0-4.0) Basophils (%) (Auto) 0.7 % (0.0-2.0) Neutrophils # (Auto) 11.2 TH/MM3 (1.8-7.7) Lymphocytes # (Auto) 0.8 TH/MM3 (1.0-4.8) Monocytes # (Auto) 0.7 TH/MM3 (0-0.9) Eosinophils # (Auto) 0.0 TH/MM3 (0-0.4) Basophils # (Auto) 0.1 TH/MM3 (0-0.2) CBC Comment DIFF FINAL Differential Comment Prothrombin Time 16.7 SEC (9.8-11.6) Prothromb Time International 1.5 RATIO Ratio Activated Partial 33.0 SEC Thromboplast Time (24.3-30.1) D-Dimer Quantitative (PE/DVT) 14.64 MG/L FEU (0.00-0.50) Sodium Level 143 MEQ/L (136-145) Potassium Level 3.6 MEQ/L (3.5-5.1) Chloride Level 105 MEQ/L (98-107) Carbon Dioxide Level 18.7 MEQ/L (21.0-32.0) Anion Gap 19 MEQ/L (5-15) Blood Urea Nitrogen 27 MG/DL (7-18) Creatinine 3.00 MG/DL (0.60-1.30) Estimat Glomerular Filtration 21 ML/MIN (>89) Rate Random Glucose 62 MG/DL (74-106) Calcium Level 9.4 MG/DL (8.5-10.1) Magnesium Level 1.8 MG/DL (1.5-2.5) Total Bilirubin 1.1 MG/DL (0.2-1.0) Aspartate Amino Transf 39 U/L (15-37) (AST/SGOT) Alanine Aminotransferase 34 U/L (12-78) (ALT/SGPT) Alkaline Phosphatase 91 U/L (45-117) Troponin I 0.14 NG/ML (0.02-0.05) Total Protein 9.0 GM/DL (6.4-8.2) Albumin 3.9 GM/DL (3.4-5.0) Lactic Acid Level 7.7 mmol/L 5.8 mmol/L (0.4-2.0) (0.4-2.0) B-Type Natriuretic Peptide 207 PG/ML (0-100) Blood Gas Puncture Site LT RADIAL Blood Gas Patient Temperature 98.6 Blood Gas HCO3 11 mmol/L (22-26) Blood Gas Base Excess -13.7 mmol/L (-2-2) Blood Gas Oxygen Saturation 95 % (90-100) Arterial Blood pH 7.34 (7.380-7.420) Arterial Blood Partial 21 mmHG (38-42) Pressure CO2 Arterial Blood Partial 118 mmHG Pressure O2 (61-120) Arterial Blood Oxygen Content 19.7 Vol % (12.0-20.0) Arterial Blood 0.5 % (0-4) Carboxyhemoglobin Arterial Blood Methemoglobin 0.8 % (0-2) Blood Gas Hemoglobin 14.6 G/DL (12.0-16.0) Oxygen Delivery Device NONREBREATHER Blood Gas Liter Flow 15 L/M Blood Gas Inspired Oxygen 100 % Test 07/20/16 07/20/16 07/20/16 07/20/16 13:50 14:00 15:00 18:47 Nasal Screen MRSA (PCR) MRSA NOT DETECTED (NOT DETECT) Urine Color YELLOW (YELLW/STRAW) Urine Turbidity CLOUDY (CLEAR) Urine pH 5.5 (5.0-8.5) Urine Specific [place] 1.022 (1.002-1.035) Urine Protein 300 mg/dL (NEG-TRACE) Urine Glucose (UA) TRACE mg/dL (NEG) Urine Ketones NEG mg/dL (NEG) Urine Occult Blood LARGE (NEG) Urine Nitrite NEG (NEG) Urine Bilirubin NEG (NEG) Urine Urobilinogen LESS THAN 2.0 MG/DL (LESS THAN 2.0) Urine Leukocyte Esterase MOD (NEG) Urine RBC 6 /hpf (0-3) Urine WBC 54 /hpf (0-5) Urine WBC Clumps MOD (NONE) Urine Squamous Epithelial 3 /hpf (0-5) Cells Urine Uric Acid Crystals FEW /hpf (NONE) Urine Amorphous Sediment RARE Urine Bacteria FEW /hpf (NONE) Urine Mucus FEW /lpf (OCC) Microscopic Urinalysis Comment CATH-CULTURE IND Blood Gas Puncture Site RENAE RT BRACHIAL Blood Gas Patient Temperature 98.6 98.6 Blood Gas HCO3 14 mmol/L 15 mmol/L (22-26) (22-26) Blood Gas Base Excess -13.9 mmol/L -10.7 mmol/L (-2-2) (-2-2) Blood Gas Oxygen Saturation 96 % (90-100) 94 % (90-100) Arterial Blood pH 7.09 7.29 (7.380-7.420) (7.380-7.420) Arterial Blood Partial 49 mmHg (38-42) 31 mmHg (38-42) Pressure CO2 Arterial Blood Partial 358 mmHg 100 mmHg Pressure O2 (61-120) (61-120) Arterial Blood Oxygen Content 17.2 Vol % 15.7 Vol % (12.0-20.0) (12.0-20.0) Arterial Blood 0.3 % (0-4) 0.8 % (0-4) Carboxyhemoglobin Arterial Blood Methemoglobin 2.1 % (0-2) 2.5 % (0-2) Blood Gas Hemoglobin 12.1 G/DL 11.8 G/DL (12.0-16.0) (12.0-16.0) Oxygen Delivery Device VENT VENTILATOR Blood Gas Ventilator Setting [facility]///1.2IT [facility]/ Blood Gas Inspired Oxygen 100 % 50 % Test 07/20/16 07/21/16 07/21/16 07/21/16 20:27 01:20 06:08 11:30 Lactic Acid Level 6.0 mmol/L 5.7 mmol/L 6.3 mmol/L (0.4-2.0) (0.4-2.0) (0.4-2.0) Troponin I 0.26 NG/ML (0.02-0.05) White Blood Count 11.0 TH/MM3 (4.0-11.0) Red Blood Count 3.60 MIL/MM3 (4.50-5.90) Hemoglobin 11.1 GM/DL (13.0-17.0) Hematocrit 32.7 % (39.0-51.0) Mean Corpuscular Volume 91.0 FL (80.0-100.0) Mean Corpuscular Hemoglobin 30.9 PG (27.0-34.0) Mean Corpuscular Hemoglobin 33.9 % Concent (32.0-36.0) Red Cell Distribution Width 13.8 % (11.6-17.2) Platelet Count 124 TH/MM3 (150-450) Mean Platelet Volume 9.8 FL (7.0-11.0) Neutrophils (%) (Auto) 93.6 % (16.0-70.0) Lymphocytes (%) (Auto) 3.0 % (9.0-44.0) Monocytes (%) (Auto) 2.5 % (0.0-8.0) Eosinophils (%) (Auto) 0.6 % (0.0-4.0) Basophils (%) (Auto) 0.3 % (0.0-2.0) Neutrophils # (Auto) 10.3 TH/MM3 (1.8-7.7) Lymphocytes # (Auto) 0.3 TH/MM3 (1.0-4.8) Monocytes # (Auto) 0.3 TH/MM3 (0-0.9) Eosinophils # (Auto) 0.1 TH/MM3 (0-0.4) Basophils # (Auto) 0.0 TH/MM3 (0-0.2) CBC Comment AUTO DIFF Differential Total Cells 100 Counted Neutrophils % (Manual) 55 % (16-70) Band Neutrophils % 29 % (0-6) Lymphocytes % 3 % (9-44) Monocytes % 5 % (0-8) Neutrophils # (Manual) 10.1 TH/MM3 (1.8-7.7) Metamyelocytes 7 % (0-1) Myelocytes 1 % (0-0) Differential Comment FINAL DIFF MANUAL Toxic Granulation 1+ (NORMAL) Toxic Vacuolation PRESENT (NONE SEEN) Dohle Bodies PRESENT (NONE SEEN) Platelet Estimate LOW (NORMAL) Platelet Morphology Comment NORMAL (NORMAL) Prothrombin Time 20.6 SEC (9.8-11.6) Prothromb Time International 1.8 RATIO Ratio Activated Partial 49.0 SEC Thromboplast Time (24.3-30.1) Sodium Level 135 MEQ/L (136-145) Potassium Level 3.5 MEQ/L (3.5-5.1) Chloride Level 100 MEQ/L (98-107) Carbon Dioxide Level 19.7 MEQ/L (21.0-32.0) Anion Gap 15 MEQ/L (5-15) Blood Urea Nitrogen 47 MG/DL (7-18) Creatinine 4.80 MG/DL (0.60-1.30) Estimat Glomerular Filtration 12 ML/MIN (>89) Rate Random Glucose 275 MG/DL (74-106) Calcium Level 5.7 MG/DL (8.5-10.1) Protein Corrected Calcium 6.6 MG/DL (8.5-10.1) Phosphorus Level 7.6 MG/DL (2.5-4.9) Magnesium Level 1.2 MG/DL (1.5-2.5) Total Bilirubin 0.6 MG/DL (0.2-1.0) Aspartate Amino Transf 58 U/L (15-37) (AST/SGOT) Alanine Aminotransferase 36 U/L (12-78) (ALT/SGPT) Alkaline Phosphatase 32 U/L (45-117) Total Protein 5.0 GM/DL (6.4-8.2) Albumin 2.0 GM/DL (3.4-5.0) Urine Eosinophils NONE SEEN /HPF (NONE SEEN) Urine Osmolality 324 MOSM/KG (300-1300) Urine Random Creatinine 113.5 MG/DL Urine Random Sodium 62 MEQ/L Stool C. difficile Toxin (PCR) NEGATIVE (NEGATIVE) Stl C. difficile Toxin PRESUMPTIVE Epiderm 027 NEGATIVE (NEGATIVE) Test 07/21/16 14:40 Total Creatine Kinase 2214 U/L (39-308) Creatine Kinase MB 26.6 NG/ML (0.5-3.6) Creatine Kinase MB % 1.2 % (0.0-4.0) Troponin I 0.28 NG/ML (0.02-0.05) . Result Diagram: 07/21/16 0608 07/21/16 0608 Microbiology Microbiology Date/Time Procedure Status Source Growth 07/20/16 09:15 Aerobic Blood Culture - Preliminary Resulted Blood Peripheral Group A Beta Strep 07/20/16 09:15 Anaerobic Blood Culture - Preliminary Resulted Gram Positive Cocci 07/20/16 09:30 Aerobic Blood Culture - Preliminary Resulted Blood Peripheral Gram Positive Cocci 07/20/16 09:30 Anaerobic Blood Culture - Preliminary Resulted Gram Positive Cocci 07/20/16 14:00 Urine Culture - Preliminary Resulted Urine Catheterized Urine NO GROWTH IN 24 HOURS. 07/21/16 11:30 Rotavirus Antigen - Final Complete Stool Stool NEGATIVE - ROTAVIRUS ANTIGEN IS ABSEN... 07/21/16 11:30 Received Stool Stool Pending 07/21/16 11:30 Cryptosporidium Exam Received Stool Stool Pending 07/21/16 11:30 Stool Pus (SAVAGE) Received Stool Stool Pending 07/21/16 11:30 Giardia Antigen (SAVAGE) Received Stool Stool Pending 07/21/16 11:30 Legionella Antigen - Final Complete Urine Catheterized Urine PRESUMPTIVE NEGATIVE FOR LEGIONELLA P... 07/21/16 11:30 Streptococcus pneumoniae Antigen (M - Final Complete Urine Catheterized Urine PRESUMPTIVE NEGATIVE FOR STREPTOCOCCU... 07/21/16 14:30 Aerobic Blood Culture Received Blood Peripheral Pending 07/21/16 14:30 Anaerobic Blood Culture Received Blood Peripheral Pending 07/21/16 14:45 Aerobic Blood Culture Received Blood Peripheral Pending 07/21/16 14:45 Anaerobic Blood Culture Received Blood Peripheral Pending Imaging Last Impressions Chest X-Ray 07/20/16 1417 Signed Impressions: Service Date/Time: Wednesday, July 20, 2016 14:32 - CONCLUSION: 1. Interval intubation and placement of left internal jugular central venous line with no pneumothorax. 2. Placement of nasogastric tube. 3. No acute cardiopulmonary disease. Alonzo Bradshaw MD Renal Ultrasound 07/20/16 0000 Signed Impressions: Service Date/Time: Wednesday, July 20, 2016 14:32 - CONCLUSION: 1. No acute findings. Renal ultrasound unremarkable. Bladder was not well-visualized. Jose Martin Valderrama MD Lower Extremity Ultrasound 07/20/16 0000 Signed Impressions: Service Date/Time: Wednesday, July 20, 2016 14:39 - CONCLUSION: Negative exam with no evidence of deep venous thrombosis. Alonzo Bradshaw MD Head CT 07/20/16 0000 Signed Impressions: Service Date/Time: Wednesday, July 20, 2016 18:21 - CONCLUSION: 1. No acute intracranial abnormalities. Mild mucosal thickening of the ethmoid air cells. Jose Martin Valderrama MD Chest CT 07/20/16 0000 Signed Impressions: Service Date/Time: Wednesday, July 20, 2016 11:28 - CONCLUSION: 1. Chronic scarring in the lung bases left greater than right. 2. No focal consolidation. 3. Bilateral adrenal masses left greater than right most consistent with adenomas. 4. Nonspecific bowel gas pattern noted in the upper abdomen with air-fluid levels in the small bowel. Alonzo Bradshaw MD Abdomen/Pelvis CT 07/20/16 0000 Signed Impressions: Service Date/Time: Wednesday, July 20, 2016 18:24 - CONCLUSION: 1. Lower abdominal ventral midline hernia containing loop of small bowel. Small bowel is mildly distended somewhat diffusely with fluid and air. Cannot exclude a low grade partial bowel obstruction in the area of herniation. 2. No abnormal fluid collections to suggest abscess. No free air or free fluid. 3. Basilar and dependent lung consolidation, left greater than right. Pneumonia could have this appearance. Small left effusion. 4. NG tip in stomach. Inferior vena cava filter present. Connelly catheter in bladder. Jose Martin Valderrama MD . Procedures * Intubation/mechanical ventilation 07/20/16 * Left internal jugular central line placement 07/20/16 . Patient/Family Conference Present at Family Conference: Spouse and 2 daughtersRaneerul and Dania. JENSEN Moreno was also present. . . Family Conference Time (mins): 55 Family Conference Location: Consult Room Issues Discussed: * Palliative care role, purpose, approach * Additional medical, psychosocial, and spiritual history * Patients general health, functional status, and cognitive changes in the months leading up to the current hospitalization * Family understanding of the current medical problems * Family understanding of prognosis * Patients goals of care as best understood from advance directives and/or conversations and/or values * Current medical treatment options and benefits/burdens of those options * Questions answered to the best of my ability * Palliative care contact information provided . Assessment and Plan Disease Oriented Problem List: (1) Severe sepsis with acute organ dysfunction (2) Respiratory failure (3) Lactic acidosis (4) Hypoxia (5) Peripheral vascular disease (6) Hypertension (7) Dyslipidemia (8) Chronic anticoagulation (9) Elevated troponin (10) History of DVT (deep vein thrombosis) (11) Acute kidney injury Symptom Scale: (1) Pain 0-10 Scale: Unable to quantify Comment: Patient has chronic pain mostly in the lower extremities from a combination of peripheral vascular disease and diabetic neuropathy. He had been prescribed opiates in the past but normally takes no analgesics because he doesn't like the side effects. Additional sources of discomfort at this time would include prolonged bedbound status; orotracheal/orogastric intubations; Connelly catheter; vascular access lines. . (2) Dyspnea 0-10 Scale: Unable to quantify (dyspnea seems managed with mechanical ventilation.) (3) Encephalopathy 0-10 Scale: Unable to quantify Comment: Encephalopathy is most likely multifactorial and in large part due to the septic shock. Based on the history, it is unlikely that the duration of hypoglycemia or hypotension would've caused any type of permanent damage. There is no prior history of underlying dementia. . Pertinent Non-Medical Issues Psychosocial: Patient is well supported by his spouse and daughter who live locally, many friends who live locally, and 2 daughters who have flown in from [place] and [place]. Spiritual: Patient was raised in a Hindu home. Now identifies himself as a [employer]. Catholic and spirituality have not played a large part in his life of late. Legal: reports the patient has completed an advanced directive. She will bring a copy into scanned into the medical record. Ethical issues impacting care: Patient is currently incapacitated to make his own health care decisions. It remains uncertain if he will regain capacity to do so. . Important Contacts == Spouse (Alysia Lemus) [phone] == Daughter (Adenike) [phone] . Prognosis Though Mr Lemus is quite critically ill with septic shock and multiple organs being affected, it is also important to note that in spite of his underlying chronic illnesses , his functional status was reasonably good prior to becoming acutely ill so suddenly. Family, understandably, want to give him a chance to see if he is able to get through this acute period. He had a similar episode of severe illness approximately 10 years ago after being hospitalized with a ruptured appendix. Family has witnessed him being able to recover from that. The rapidity of progression to overwhelming sepsis is a poor prognostic sign. In addition, he will need ample fluids to fight shock and hypotension which can easily lead to congestive failure given his history. . Code Status: Full Code Plan == Code Status : FULL CODE == Decision Making: The patient is currently incapacitated to make his own health care decisions. will bring in the patient's completed advanced directive. She informs me that she is listed as the designated health care surrogate. If there is no advanced directive, would still be asked to serve as proxy decision-maker under the hierarchy of proxy's in the [place] statutes. == Goals of medical treatment: The patient's spouse and 2 of the daughters present want ongoing and full aggressive care for the time being. They are aware how ill the patient is want to see if he is able to turn the corner. As noted above they would want all resuscitation attempts tried at this point in time. On the other hand, family reports that the patient would not want to be maintained on life support if there is not hopeful for meaningful recovery. is even uncertain if patient would ever agree to ongoing hemodialysis. If the patient continues to decline in spite of aggressive care were there is no obvious improvement in spite of aggressive care want to reconsider goals. == Pain: As noted above, patient has a number of different pain syndromes. Currently pain is being controlled with a fentanyl drip. This appears to be working. No further recommendations for pain control at this time. ==Dyspnea: Dyspnea currently being controlled with mechanical ventilation. No further recommendations at this time. == Agitation: Agitation is probably secondary to a multifactorial delirium. Symptoms are currently being controlled with propofol. Hopefully as the patient 's underlying infection is being treated, propofol can be weaned and agitation will be less. == Encephalopathy: Also likely due to a multifactorial delirium. No evidence at this time to suggest there is been any kind of long lasting adverse effects from either hypoglycemia or hypotension or hypoxia.. == is bringing in a copy of the patient's advanced directive for us to scan into the electronic medical record. == Palliative care will continue to follow to assist with symptom management and to further clarify goals of medical treatment as the clinical course evolves. . Time Spent Total Floor Time (mins): 90 (Total floor time including chart review; patient examination; above noted family meeting and documentation..) Face to Face Time (mins): 10 >50% Counseling/Coord of Care: Yes Thank you for the opportunity to participate in the care of Mr. Lemus. . Attestation To help prompt me to consider important information that might be impacting today's encounter and assessment, information from prior notes written by myself or my colleagues may have been "brought forward" into today's note. My signature on this note, however, is an attestation that I personally performed the exam, history, and/or decision-making noted today, and, unless otherwise indicated, the interactions with patient, family, and staff as well as the review of records all occurred today. I also attest that the listed assessment and stated plan reflect my best clinical judgment today based on the combination of historical information, prior notes, and today's exam/ interactions. When time spent is documented, it refers only to time spent today by the signer, or if indicated, combined time spent today by collaborating physician/nurse practitioner. . Jameson Conklin MD July 21, 2016 17:08
[2016-07-21 18:34] LABS: BLOOD GAS BASE EXCESS -9.6 mmol/L (-2-2); BLOOD GAS CARBOXYHEMOGLOBIN 0.9 % (0-4); BLOOD GAS HCO3 16 mmol/L (22-26); BLOOD GAS METHEMOGLOBIN 1.8 % (0-2); BLOOD GAS O2 HGB SATURATION 93 % (90-100); BLOOD GAS OXYGEN CONTENT 14.6 Vol % (12.0-20.0); BLOOD GAS PCO2 36 mmHg (38-42); BLOOD GAS PO2 89 mmHg (61-120); TEMP CORR TO 98.6
[2016-07-21 18:35] LABS: CRITICAL VALUE YES; DRAW SITE ART LINE; FIO2 50 %; OXYGEN DEVICE VENTILATOR; STAT NO; VENT SETTINGS AC 24/550/PEEP8
[2016-07-21] MEDS: NOREPINEPHRINE INJ 8 MG in SODIUM CHLORID 0.9% 500 ML INJ 492 ML IV SCH (20:09)
[2016-07-21] MEDS: HEPARIN SODIUM - SQ 10,000 UNITS/ML VIAL SQ SCH (20:39)
--- NOTE | 2016-07-21 22:31 | RADRPT ---
EXAM DATE/TIME: 07/21/2016 22:13 [facility] COMPARISON: CHEST SINGLE AP, July 20, 2016, 14:32. INDICATIONS : Post central line placement. MEDICAL HISTORY : Congestive heart failure. Diabetes mellitus type II. SURGICAL HISTORY : None. ENCOUNTER: Subsequent ACUITY: 3 days PAIN SCORE: Non-responsive. LOCATION: Bilateral chest FINDINGS: Endotracheal tube, nasogastric tube, left neck central line are all stable and satisfactory. A new ri ght neck dialysis catheter has been inserted extending to the SVC. There is no evidence of pneumothor ax or other complication. Hazy bilateral predominantly basilar pleural-parenchymal opacities are slig htly more notable than on earlier exam. Visualized cardiac contours are grossly stable. CONCLUSION: Satisfactory central line positioning. Worsening aeration. [place] Guillermo MD on July 21, 2016 at 22:28 Board Certified Radiologist. This report was verified electronically.
[2016-07-22] VITALS (17 sets, daily range): BP systolic 101–124; BP diastolic 54–64; PULSE 98–116; RESP 24; TEMP 96.8–98.2; O2SAT 92–96
--- NOTE | 2016-07-22 00:21 | PD.PROCEDR ---
Procedure Note Procedure HD catheter insertion A time-out was completed verifying correct patient, procedure, site, positioning , and special equipment if applicable. The patient was placed in a dependent position appropriate for central line placement based on the vein to be cannulated. The patients left neck was prepped and draped in sterile fashion. 1 % Lidocaine was used to anesthetize the surrounding skin area. A double lumen hemodialysis catheter was introduced into the the internal jugular vein using the Seldinger technique and under ultrasound guidance. The catheter was threaded smoothly over the guide wire and appropriate blood return was obtained. Each lumen of the catheter was evacuated of air and flushed with sterile saline. The catheter was then sutured in place to the skin and a sterile dressing applied. Perfusion to the extremity distal to the point of catheter insertion was checked and found to be adequate. Estimated Blood Loss: 1ml The patient tolerated the procedure well and there were no complications. Enrrique Berg MD July 22, 2016 00:21
[2016-07-22] MEDS: AMPICILLIN-SULBACTAM INJ 1,500 MG in SODIUM CHLORIDE 0.9% INJ 100 ML IV SCH ×3 (00:43→17:10)
[2016-07-22] MEDS: INSULIN NovoLIN REGULAR SUPPLEMENTAL SCALE SQ SCH ×4 (01:00→18:31)
[2016-07-22] MEDS: NOREPINEPHRINE INJ 8 MG in SODIUM CHLORID 0.9% 500 ML INJ 492 ML IV SCH ×5 (02:28→22:18)
[2016-07-22] MEDS: VASOPRESSIN 40 U/100 ML D5W Titrate, Post Cardiac Surgery IV SCH ×4 (02:28→20:05)
[2016-07-22] MEDS: CHLORHEXIDINE GLUCONATE 2 % 1 PACK (2 CLOTHS) TOP SCH (02:29)
[2016-07-22] MEDS: RESP: ALBUTEROL 2.5 MG/IPRATROPIUM 0.5 MG NEB (SCH) INH ×5 (03:56→20:55)
[2016-07-22] MEDS: HYDROCORTISONE SOD SUCCINATE 100 MG VIAL IV PUSH SCH ×3 (05:20→20:19)
[2016-07-22] MEDS: CLINDAMYCIN INJ 900 MG in SODIUM CHLORIDE 0.9% INJ 100 ML IV SCH ×4 (05:20→22:17)
[2016-07-22] MEDS: PROPOFOL 1000 MG/100 ML INJ 100 ML IV SCH ×3 (06:05→20:19)
[2016-07-22] MEDS: SODIUM BICARBONATE 8.4% INJ 150 MEQ in WATER STERILE FOR INJ 850 ML IV SCH ×2 (06:05→13:20)
[2016-07-22 06:18] LABS: BASOPHIL % 0.2 % (0.0-2.0); EOSINOPHIL % 0.1 % (0.0-4.0); HEMATOCRIT 33.2 % (39.0-51.0); LYMPH % 1.5 % (9.0-44.0); LYMPHOCYTE # 0.2 TH/MM3 (1.0-4.8); MEAN CELL VOLUME 89.9 FL (80.0-100.0); MEAN CORPUSCULAR HEMOGLOBIN 29.7 PG (27.0-34.0); MEAN CORPUSCULAR HGB CONC 33.1 % (32.0-36.0); MONO % 1.5 % (0.0-8.0); NEUT % 96.7 % (16.0-70.0); PLATELET COUNT 62 TH/MM3 (150-450); RED CELL DISTRIBUTION WIDTH 13.4 % (11.6-17.2); WHITE BLOOD COUNT 13.4 TH/MM3 (4.0-11.0)
[2016-07-22 06:27] LABS: HEMO FLAGS AUTO DIFF
[2016-07-22 06:57] LABS: BICARBONATE 15.8 MEQ/L (21.0-32.0); MAGNESIUM 1.6 MG/DL (1.5-2.5); POTASSIUM 3.1 MEQ/L (3.5-5.1); TOTAL BILIRUBIN ADULT 0.8 MG/DL (0.2-1.0)
[2016-07-22 07:06] LABS: CALCIUM-PROTEIN CORRECTED 6.3 MG/DL (8.5-10.1)
--- NOTE | 2016-07-22 07:08 | MB ---
cc: ANETA MORGAN DATE OF CONSULTATION 07/21/2016 PHYSICIAN REQUESTING CONSULTATION Andrey Brown MD REASON FOR CONSULTATION Gram-positive sepsis and ventral hernia. HISTORY OF PRESENT ILLNESS The patient is a 71-year-old male with a history of multiple medical comorbidities who was admitted to [facility] Intensive Care Unit with gram-positive sepsis and multiorgan failure. The patient is intubated and sedated and history is obtained from the record. During his evaluation and septic workup, did receive a CT scan of the abdomen and pelvis performed on 07/20/2016 which returned lower midline ventral hernia obtained loops of small bowel. No free air or free fluid. General surgery was consulted for evaluation of the hernia. REVIEW OF SYSTEMS Unable to obtain. PAST MEDICAL HISTORY 1. Hypertension 2. Diabetes 3. DVT 4. History of pulmonary embolism. 5. Peripheral vascular disease 6. CHF PAST SURGICAL HISTORY 1. Ruptured appendix in 2006, bowel obstruction following that. 2. IVC filter placement 3. Hernia repair HOME MEDICATIONS 1. Lisinopril 2. Coumadin 3. Amlodipine 4. Simvastatin 5. Insulin 6. Lantus 7. Aspirin 8. Vitamin D FAMILY HISTORY Noncontributory SOCIAL HISTORY Patient is a [place]. He is taken care of at the [facility]. Extensive history of tobacco abuse. History of heavy alcohol use. No illicit drug use. PHYSICAL EXAM VITAL SIGNS: Blood pressure 104/55, heart rate 116, temperature 100.4. GENERAL: The patient is a critically ill-appearing male in the Intensive Care Unit intubated. HEAD: Normocephalic, atraumatic. EYES: Pupils round, reactive. Sclerae is anicteric. EARS, NOSE, AND THROAT: Oral cavity has endotracheal tube. NECK: Supple. LUNGS: Breath sounds present bilaterally. HEART: Tachycardic, mo murmurs. ABDOMEN: Soft, protuberant and nondistended. There is a midline fascial defect with a loop of bowel which is easily reducible back into the abdomen with no evidence of incarceration. No inguinal hernias, hypoactive bowel sounds. EXTREMITIES: Positive trace edema. NEUROLOGIC: The patient is GCS three and sedated and intubated on the ventilator. LABORATORY FINDINGS White blood cell count 11.0, hemoglobin 11.1, INR 1.8, lactic acidosis 6.3, albumin 2.0, creatinine 4.8. Base excess -9.6 on the blood gas, pH 7.27. ASSESSMENT/PLAN The patient is a 71-year-old male in septic shock, multiorgan failure, critically ill in the Intensive Care Unit. The patient had an incidentally found chronic hernia on CT scan. This was easily reduced on physical exam and there was no evidence that this is acute incarceration or an acute surgical process. This was easily reducible with minimal effort just on physical examination. I reviewed the CT scan. There is some mild edema and anasarca of the bowel and the entire abdomen consistent with sepsis edema and anasarca with no evidence of any acute surgical process. I do recommend during a nurse's assessment and I discussed with the nurse at the bedside to assess the patients hernia. If there is any evidence of this becoming incarcerated or becomes an acute issue to call surgery immediately. Thank you very much for this consultation. Please call us if we can be of any further assistance for this patient. We will sign off. MD MAXI Andrea/THNOG /7:07 PM /6:54 AM
[2016-07-22] MEDS: SODIUM CHLORIDE 0.9% FLUSH 10 ML FLUSH IV FLUSH SCH ×2 (07:52→20:06)
[2016-07-22] MEDS: DOCUSATE SODIUM 100 MG CAP PO SCH ×2 (07:52→20:06)
[2016-07-22] MEDS: SODIUM CHLORIDE 0.9% FLUSH 10 ML FLUSH IVF SCH (07:52)
[2016-07-22] MEDS: CHLORHEXIDINE 0.12% (ORAL KIT) 15 ML CUP MT SCH ×2 (07:52→20:06)
[2016-07-22] MEDS: HEPARIN SODIUM - SQ 10,000 UNITS/ML VIAL SQ SCH (07:56)
[2016-07-22] MEDS: PANTOPRAZOLE SODIUM 40 MG VIAL IV SCH (07:56)
[2016-07-22] MEDS: ASPIRIN 81 MG CHEW TAB CHEW SCH (07:57)
[2016-07-22 08:35] LABS: BANDS 35 % (0-6); EOSINOPHILS 1 % (0-4); NEUTROPHIL # MANUAL DIFF 12.5 TH/MM3 (1.8-7.7); POLYS (SEG NEUTROPHILS) 58 % (16-70); WBC DIFF SAMPLE 100
[2016-07-22 08:41] LABS: PLATELET ESTIMATE SMEAR LOW (NORMAL); PLATELET MORPHOLOGY NORMAL (NORMAL); SCAN/DIFF FINAL DIFF MANUAL; TOXIC GRANULATION 1+ (NORMAL); TOXIC VACUOLATION PRESENT (NONE SEEN)
[2016-07-22] MEDS ORDERED: KCL/AQUEOUS SOLN Dialysate additive PRN ×2 (10:15→12:00)
[2016-07-22] MEDS ORDERED: HEPARIN 25,000 UNITS-D5W 250 ML IV SCH (10:45)
[2016-07-22] MEDS: SODIUM CHLOR 0.9% 1000 ML INJ 1,000 ML IV SCH ×3 (10:48→13:20)
--- NOTE | 2016-07-22 10:54 | HHI.NPPN ---
Subjective History of Present Illness 71-year-old male with past medical history of diabetes mellitus, hypertension, ischemic heart disease, peripheral neuropathy, chronic kidney disease, history of deep vein thrombosis, hyperlipidemia was brought to the hospital because of generalized weakness, confusion and vomiting and diarrhea. I was called to see the patient because of elevated BUN and creatinine. The patient has history of acute kidney injury in the past and chronic kidney disease. His creatinine was around 1.2 to 1.4, this was in 2012. Additional Remarks Patient is on the vent. and sedation, open eyes on stimuli. Review of Systems General General Remarks Intubated and sedated. Objective Data Data 07/21/16 07/22/16 19:00 07:00 Intake Total 3317 ml 4674 ml Output Total 210 ml 275 ml Balance 3107 ml 4399 ml Intake IV Total 3257 ml 4674 ml Other 60 ml Output Urine Total 60 ml 150 ml Gastric Drainage Total 150 ml 125 ml # Bowel Movements 1 1 Vital Signs Date Time Temp Pulse Resp B/P Pulse Ox O2 Delivery O2 Flow Rate FiO2 07/22/16 10:00 104 07/22/16 08:56 92 45 07/22/16 08:00 45 07/22/16 08:00 97.0 103 24 101/54 93 Automatic Cuff 07/22/16 08:00 104 07/22/16 06:00 98 07/22/16 04:08 94 45 07/22/16 04:00 97.2 106 24 96 124/64 07/22/16 04:00 106 07/22/16 04:00 45 07/22/16 02:00 104 07/22/16 01:24 96 45 07/22/16 00:00 50 07/22/16 00:00 116 07/22/16 00:00 98.2 116 24 95 118/60 07/21/16 22:36 94 50 07/21/16 22:00 120 07/21/16 20:00 112 07/21/16 20:00 99.3 112 24 106/58 96 07/21/16 20:00 50 07/21/16 19:47 96 50 07/21/16 18:00 103 07/21/16 17:03 93 50 07/21/16 16:00 116 07/21/16 16:00 100.4 116 20 104/55 92 07/21/16 16:00 50 07/21/16 14:00 126 07/21/16 12:23 95 50 07/21/16 12:00 100.4 122 24 86/51 94 07/21/16 12:00 122 07/21/16 12:00 50 -: 07/22/16 0600 07/22/16 0600 Microbiology 07/21/16 Rotavirus Antigen - Final, Complete NEGATIVE - ROTAVIRUS ANTIGEN IS ABSEN... 07/21/16 - Final, Complete NO ENTERIC PATHOGENS DETECTED BY PCR... 07/21/16 Cryptosporidium Exam, Resulted Pending 07/21/16 Stool Pus (SAVAGE) - Final, Resulted MODERATE WBC'S 07/21/16 Giardia Antigen (SAVAGE), Resulted Pending 07/21/16 Legionella Antigen - Final, Complete PRESUMPTIVE NEGATIVE FOR LEGIONELLA P... 07/21/16 Streptococcus pneumoniae Antigen (M - Final, Complete PRESUMPTIVE NEGATIVE FOR STREPTOCOCCU... 07/21/16 Aerobic Blood Culture, Received Pending 07/21/16 Anaerobic Blood Culture, Received Pending 07/21/16 Aerobic Blood Culture, Received Pending 07/21/16 Anaerobic Blood Culture, Received Pending 07/21/16 Gram Stain - Final, Resulted 07/21/16 Sputum Culture, Resulted Pending 07/22/16 Aerobic Blood Culture, Received Pending 07/22/16 Anaerobic Blood Culture, Received Pending Physical Exam General Appearance Remarks Intubated and sedated. Eyes Eye Exam: Pupils Equal Throat Throat Exam: Oral Mucosa [place] & Moist Neck Neck Exam: Neck Supple Pulmonary Resp Exam: Rhonchi, Decreased Bases, Diminished Breath Sounds, Poor Inspiratory Effort Cardiology CV Exam: Regular, Normal Sinus Rhythm Gastrointestinal/Abdomen GI Exam: Soft, Non-Tender, Bowel Sounds Present Extremeties Extremities Exam: Trace Edema Neurologic Neuro Exam: Unresponsive, Sedated Assessment/Plan Assessment Summary: ADALID/Acute Renal Failure Electrolyte Assessment: Metabolic Acidosis Problem List: (1) Diabetes mellitus with neuropathy (2) Leukocytosis (3) Peripheral vascular disease (4) Severe sepsis with acute organ dysfunction (5) History of DVT (deep vein thrombosis) (6) Hypoxia (7) Acidosis (8) Lactic acidosis Plan Patient has low urine out put. Creatinine continue to increase. ABG was done yesterday and PH is 7.19, mixed acidosis, Base access was -9.9 BP is still low, on multiple pressors. BC results noted, seen by ID. Now on Unasyn and Clindamycin. To start CRRT, informed the HD RN and orders given. K and calcium low, will replace. Po4 elevated, should improve with HD. CPK also elevated. Continue antibiotics,start CRRT, UF 150cc per hr. Problem Qualifiers (1) Diabetes mellitus with neuropathy: Qualified Code: E11.40 - Type 2 diabetes mellitus with diabetic neuropathy, unspecified adjunct faculty for medical terminology insulin use status (2) Leukocytosis: Qualified Code: D72.829 - Leukocytosis, unspecified type Frank Magana MD July 22, 2016 10:54
[2016-07-22] MEDS ORDERED: PROTAMINE SULFATE 250 MG in NS 250 ML IV SCH (11:00)
[2016-07-22] MEDS ORDERED: POTASSIUM CHLOR 20 MEQ PREMIX 100 ML IV ONE (11:00)
[2016-07-22] MEDS ORDERED: CALCIUM GLUCONATE INJ 1 GM in SODIUM CHLORIDE 0.9% INJ 100 ML IV ONE (12:00)
[2016-07-22 12:10] LABS: APTT (PATIENT) 60.6 SEC (24.3-30.1)
--- NOTE | 2016-07-22 12:37 | HHI.IDPN ---
Subjective Subjective Remarks 71-year-old male admitted to the hospital for acute onset of diarrhea, chills and hypoglycemia. Patient apparently working in the yard July 18 and July 19. He was doing okay except for complaints on his lower extremity which is apparently chronic and related to his peripheral vascular disease. That night, the noted that the patient was breathing hard. She asked the patient and he stated that he is not short of breath. He has not complained of any sore throat, has not been congested, and has eaten without any problem. He has not had any urinary complaints. That night apparently the couldn't sleep, and around 4 :00 in the morning the patient woke up and stated that he wanted to go to the bathroom. Patient didn't make it, and had stool incontinence. He was noted to have some chills, and his blood sugars were low. He also had episode of vomiting. Patient was taken to the hospital, and since admission he is developed profound hypotension, and acidosis. He ended up getting intubated, and currently on Levophed and vasopressin. His white count is elevated, lactic acid elevated, and his creatinine is also quite elevated. His urine output has been low. Cultures done in the emergency room, are now reported as growing group A strep. Notes reviewed D/W RN Sedated on the vent Remains on pressors - levophed and vasopressin On bicarb drip To be started on CVVHD today No new (+) BC Antibiotics Unasyn Clindamycin Vanco x 1 dose Lines LIJ TLC RIJ vascath Past Medical History Hypertension Diabetes mellitus Ischemic heart disease Hyperlipidemia History of deep venous thrombosis Peripheral vascular disease Chronic kidney disease Arthritis Past Surgical History Bowel surgery Appendectomy Allergies: Coded Allergies: No Known Allergies (Verified , 07/20/16) Objective . Vital Signs Date Time Temp Pulse Resp B/P Pulse Ox O2 Delivery O2 Flow Rate FiO2 07/22/16 12:00 98.1 103 24 105/54 95 07/22/16 12:00 103 07/22/16 12:00 45 07/22/16 10:00 104 07/22/16 08:56 92 45 07/22/16 08:00 45 07/22/16 08:00 97.0 103 24 101/54 93 Automatic Cuff 07/22/16 08:00 104 07/22/16 06:00 98 07/22/16 04:08 94 45 5/9/17 04:00 97.2 106 24 96 124/64 07/22/16 04:00 106 07/22/16 04:00 45 07/22/16 02:00 104 07/22/16 01:24 96 45 07/22/16 00:00 50 07/22/16 00:00 116 07/22/16 00:00 98.2 116 24 95 118/60 07/21/16 22:36 94 50 07/21/16 22:00 120 07/21/16 20:00 112 07/21/16 20:00 99.3 112 24 106/58 96 07/21/16 20:00 50 07/21/16 19:47 96 50 07/21/16 18:00 103 07/21/16 17:03 93 50 07/21/16 16:00 116 07/21/16 16:00 100.4 116 20 104/55 92 07/21/16 16:00 50 07/21/16 14:00 126 07/21/16 07/21/16 07/22/16 15:00 23:00 07:00 Intake Total 3317 ml 2112 ml 2562 ml Output Total 210 ml 150 ml 125 ml Balance 3107 ml 1962 ml 2437 ml Intake IV Total 3257 ml 2112 ml 2562 ml Other 60 ml Output Urine Total 60 ml 50 ml 100 ml Gastric Drainage Total 150 ml 100 ml 25 ml # Bowel Movements 1 0 1 . Laboratory Tests Test 07/21/16 07/22/16 06:08 06:00 White Blood Count 11.0 TH/MM3 13.4 TH/MM3 Red Blood Count 3.60 MIL/MM3 3.70 MIL/MM3 Hemoglobin 11.1 GM/DL 11.0 GM/DL Hematocrit 32.7 % 33.2 % Mean Corpuscular Volume 91.0 FL 89.9 FL Mean Corpuscular Hemoglobin 30.9 PG 29.7 PG Mean Corpuscular Hemoglobin 33.9 % 33.1 % Concent Red Cell Distribution Width 13.8 % 13.4 % Platelet Count 124 TH/MM3 62 TH/MM3 Mean Platelet Volume 9.8 FL 9.7 FL Neutrophils (%) (Auto) 93.6 % 96.7 % Lymphocytes (%) (Auto) 3.0 % 1.5 % Monocytes (%) (Auto) 2.5 % 1.5 % Eosinophils (%) (Auto) 0.6 % 0.1 % Basophils (%) (Auto) 0.3 % 0.2 % Neutrophils # (Auto) 10.3 TH/MM3 13.0 TH/MM3 Lymphocytes # (Auto) 0.3 TH/MM3 0.2 TH/MM3 Monocytes # (Auto) 0.3 TH/MM3 0.2 TH/MM3 Eosinophils # (Auto) 0.1 TH/MM3 0.0 TH/MM3 Basophils # (Auto) 0.0 TH/MM3 0.0 TH/MM3 CBC Comment AUTO DIFF AUTO DIFF Differential Total Cells 100 100 Counted Neutrophils % (Manual) 55 % 58 % Band Neutrophils % 29 % 35 % Lymphocytes % 3 % 3 % Monocytes % 5 % 3 % Neutrophils # (Manual) 10.1 TH/MM3 12.5 TH/MM3 Metamyelocytes 7 % Myelocytes 1 % Differential Comment FINAL DIFF FINAL DIFF MANUAL MANUAL Toxic Granulation 1+ 1+ Toxic Vacuolation PRESENT PRESENT Dohle Bodies PRESENT Platelet Estimate LOW LOW Platelet Morphology Comment NORMAL NORMAL Eosinophils % 1 % Laboratory Tests Test 07/20/16 07/21/16 07/21/16 07/21/16 20:27 01:20 06:08 14:40 Lactic Acid Level 6.0 mmol/L 5.7 mmol/L 6.3 mmol/L Troponin I 0.26 NG/ML 0.28 NG/ML Sodium Level 135 MEQ/L Potassium Level 3.5 MEQ/L Chloride Level 100 MEQ/L Carbon Dioxide Level 19.7 MEQ/L Anion Gap 15 MEQ/L Blood Urea Nitrogen 47 MG/DL Creatinine 4.80 MG/DL Estimat Glomerular Filtration 12 ML/MIN Rate Random Glucose 275 MG/DL Calcium Level 5.7 MG/DL Protein Corrected Calcium 6.6 MG/DL Phosphorus Level 7.6 MG/DL Magnesium Level 1.2 MG/DL Total Bilirubin 0.6 MG/DL Aspartate Amino Transf 58 U/L (AST/SGOT) Alanine Aminotransferase 36 U/L (ALT/SGPT) Alkaline Phosphatase 32 U/L Total Protein 5.0 GM/DL Albumin 2.0 GM/DL Total Creatine Kinase 2214 U/L Creatine Kinase MB 26.6 NG/ML Creatine Kinase MB % 1.2 % Test 07/22/16 06:00 Sodium Level 135 MEQ/L Potassium Level 3.1 MEQ/L Chloride Level 96 MEQ/L Carbon Dioxide Level 15.8 MEQ/L Anion Gap 23 MEQ/L Blood Urea Nitrogen 59 MG/DL Creatinine 6.17 MG/DL Estimat Glomerular Filtration 9 ML/MIN Rate Random Glucose 140 MG/DL Calcium Level 5.4 MG/DL Protein Corrected Calcium 6.3 MG/DL Phosphorus Level 8.3 MG/DL Magnesium Level 1.6 MG/DL Total Bilirubin 0.8 MG/DL Aspartate Amino Transf 69 U/L (AST/SGOT) Alanine Aminotransferase 46 U/L (ALT/SGPT) Alkaline Phosphatase 46 U/L Total Protein 5.0 GM/DL Albumin 1.7 GM/DL Microbiology Date/Time Procedure Status Source Growth 07/20/16 09:15 Aerobic Blood Culture - Preliminary Resulted Blood Peripheral Group A Beta Strep 07/20/16 09:15 Anaerobic Blood Culture - Preliminary Resulted Gram Positive Cocci 07/20/16 09:30 Aerobic Blood Culture - Preliminary Resulted Blood Peripheral Gram Positive Cocci 07/20/16 09:30 Anaerobic Blood Culture - Preliminary Resulted Gram Positive Cocci 07/20/16 14:00 Urine Culture - Final Complete Urine Catheterized Urine NO GROWTH IN 48 HOURS. 07/21/16 11:30 Rotavirus Antigen - Final Complete Stool Stool NEGATIVE - ROTAVIRUS ANTIGEN IS ABSEN... 07/21/16 11:30 - Final Complete Stool Stool NO ENTERIC PATHOGENS DETECTED BY PCR... 07/21/16 11:30 Cryptosporidium Exam Resulted Stool Stool Pending 07/21/16 11:30 Stool Pus (SAVAGE) - Final Resulted Stool Stool MODERATE WBC'S 07/21/16 11:30 Giardia Antigen (SAVAGE) Resulted Stool Stool Pending 07/21/16 11:30 Legionella Antigen - Final Complete Urine Catheterized Urine PRESUMPTIVE NEGATIVE FOR LEGIONELLA P... 07/21/16 11:30 Streptococcus pneumoniae Antigen (M - Final Complete Urine Catheterized Urine PRESUMPTIVE NEGATIVE FOR STREPTOCOCCU... 07/21/16 14:30 Aerobic Blood Culture - Preliminary Resulted Blood Peripheral NO GROWTH IN 1 DAY 07/21/16 14:30 Anaerobic Blood Culture - Preliminary Resulted Blood Peripheral NO GROWTH IN 1 DAY 07/21/16 14:45 Aerobic Blood Culture - Preliminary Resulted Blood Peripheral NO GROWTH IN 1 DAY 07/21/16 14:45 Anaerobic Blood Culture - Preliminary Resulted Blood Peripheral NO GROWTH IN 1 DAY 07/21/16 18:25 Gram Stain - Final Resulted Sputum Endotracheal 07/21/16 18:25 Sputum Culture Resulted Sputum Endotracheal Pending 07/22/16 03:57 Aerobic Blood Culture Received Blood Peripheral Pending 07/22/16 03:57 Anaerobic Blood Culture Received Blood Peripheral Pending Imaging Last Impressions Chest X-Ray 07/21/16 0000 Signed Impressions: Service Date/Time: Thursday, July 21, 2016 22:13 - CONCLUSION: Satisfactory central line positioning. Worsening aeration. [place] Guillermo MD Renal Ultrasound 07/20/16 Signed Impressions: Service Date/Time: Wednesday, July 20, 2016 14:32 - CONCLUSION: 1. No acute findings. Renal ultrasound unremarkable. Bladder was not well-visualized. Jose Martin Valderrama MD Lower Extremity Ultrasound 07/20/16 Signed Impressions: Service Date/Time: Wednesday, July 20, 2016 14:39 - CONCLUSION: Negative exam with no evidence of deep venous thrombosis. Alonzo Bradshaw MD Head CT 07/20/16 Signed Impressions: Service Date/Time: Wednesday, July 20, 2016 18:21 - CONCLUSION: 1. No acute intracranial abnormalities. Mild mucosal thickening of the ethmoid air cells. Jose Martin Valderrama MD Chest CT 07/20/16 Signed Impressions: Service Date/Time: Wednesday, July 20, 2016 11:28 - CONCLUSION: 1. Chronic scarring in the lung bases left greater than right. 2. No focal consolidation. 3. Bilateral adrenal masses left greater than right most consistent with adenomas. 4. Nonspecific bowel gas pattern noted in the upper abdomen with air-fluid levels in the small bowel. Alonzo Bradshaw MD Abdomen/Pelvis CT 07/20/16 Signed Impressions: Service Date/Time: Wednesday, July 20, 2016 18:24 - CONCLUSION: 1. Lower abdominal ventral midline hernia containing loop of small bowel. Small bowel is mildly distended somewhat diffusely with fluid and air. Cannot exclude a low grade partial bowel obstruction in the area of herniation. 2. No abnormal fluid collections to suggest abscess. No free air or free fluid. 3. Basilar and dependent lung consolidation, left greater than right. Pneumonia could have this appearance. Small left effusion. 4. NG tip in stomach. Inferior vena cava filter present. Connelly catheter in bladder. Jose Martin Valderrama MD Physical Exam GENERAL: sedated and intubated, NAD SKIN: Cool and dry. No generalized rash, no ecchymosis. HEAD: Atraumatic. Normocephalic. No temporal or scalp tenderness. EYES: [place] conjunctivae, no petechia or hemorrhage. Pupils equal round and reactive. Has scleral edema. No scleral icterus. No injection or drainage. ENT: Nose without bleeding, or purulent drainage. Endotracheal tube is in the mouth, has moist mucosa. NECK: Trachea midline. No JVD or lymphadenopathy. Supple, nontender, no meningeal signs. CARDIOVASCULAR: Regular rate and rhythm without murmurs, gallops, or rubs. Tachycardic RESPIRATORY: Breath sounds equal bilaterally. Has scattered rales. Decreased breath sounds at the bases. GASTROINTESTINAL: Abdomen soft, globular, bowel sounds are present and normoactive. Mildly distended, no reaction to palpation. No hepato- splenomegaly, or palpable masses. MUSCULOSKELETAL: Extremities without clubbing, cyanosis, or edema. . Has some redness on dorsum of both feet. No joint effusion, or edema noted. NEUROLOGICAL: Sedated on the vent PSYCH: Unable to assess LINE: LIJ and RIJ lines with no evidence of infection : Connelly in place, urine looks clear Assessment & Plan Remarks IMPRESSION Group A Strep sepsis, with shock, MOSF, present on admission, source? - ?primary bacteremia Respiratory failure Renal failure Thrombocytopenia due to sepsis Known DM, HTN, PVD, CAD RECOMMENDATION Follow C/S IV Unasyn Clindamycin - could help in severe sepsis in GAS infection Got dose of Vanco BP support Renal following for ADALID Monitor progress Remains critically ill Spoke with daughter D/W Ceci Caicedo MD July 22, 2016 12:37
--- NOTE | 2016-07-22 13:11 | HHI.CCPN ---
Subjective Remarks/Hospital Course 71-year-old male. Date of admission 07/20/2016. Past records includes diabetes with neuropathy and nephropathy, hypertension, dyslipidemia, chronic pain syndrome, history of DVT/PE on chronic anticoagulation, peripheral vascular disease with history of AAA, and osteoporosis. Patient recently C [place] 07/06/16. Patient sick contacts would include neighbor with "vital illness. Patient is to [facility] today with acute onset of diarrhea, hypoglycemia and chills. Upon arrival, patient was noted be acutely hypoxic and required a nonrebreather mask. Patient denies pleuritic chest pain , abdominal pain but positive for nausea and diarrhea. CT chest revealed bilateral lower lobe scarring, bilateral adrenal adenomas a nonspecific bowel gas pattern. Chest x-ray revealed no significant findings. Lab work included a lactic acid elevated 7.7, white blood cell count 12,000 in acute kidney injury with a creatinine of 3.0. Baseline around 1.5-2. Troponin was slightly elevated 0.14. EKG is currently pending. Upon arrival to [facility], patient was extremely mottled with rates in the 40s. Patient was emergently intubated please see note and a left IJ central line was placed. CT of the head, abdomen and pelvis currently pending. 07/21 Patient is sedated with Diprivan and Fentanyl and intubated. On Levophed 22 mics, Vasopressin and bicarb drip. BC from 07/20: GPC all 4 bottles. 07/22 Patient remains sedated and intubated On Levophed 22 mics, vasopressin and bicarb drip. Awaiting to start CVVHD today Objective Vital Signs Date Time Temp Pulse Resp B/P Pulse Ox O2 Delivery O2 Flow Rate FiO2 07/22/16 12:00 98.1 103 24 105/54 95 07/22/16 12:00 45 07/20/16 14:00 Mechanical Ventilator 07/20/16 13:04 15 Intake and Output 07/21/16 07/21/16 07/22/16 08:00 16:00 00:00 Intake Total 2561 ml 3317 ml 2112 ml Output Total 375 ml 210 ml 150 ml Balance 2186 ml 3107 ml 1962 ml Result Diagram: 07/22/16 0600 07/22/16 0600 Other Results Laboratory Tests Test 07/21/16 07/21/16 07/21/16 07/22/16 14:40 16:29 18:21 06:00 Total Creatine Kinase 2214 U/L Creatine Kinase MB 26.6 NG/ML Creatine Kinase MB % 1.2 % Troponin I 0.28 NG/ML Blood Gas Puncture Site RT RADIAL ART LINE Blood Gas Patient Temperature 98.6 98.6 Blood Gas HCO3 17 mmol/L 16 mmol/L Blood Gas Base Excess -9.9 mmol/L -9.6 mmol/L Blood Gas Oxygen Saturation 81 % 93 % Arterial Blood pH 7.18 7.27 Arterial Blood Partial 48 mmHg 36 mmHg Pressure CO2 Arterial Blood Partial 56 mmHg 89 mmHg Pressure O2 Arterial Blood Oxygen Content 12.9 Vol % 14.6 Vol % Arterial Blood 0.7 % 0.9 % Carboxyhemoglobin Arterial Blood Methemoglobin 1.7 % 1.8 % Blood Gas Hemoglobin 11.3 G/DL 11.0 G/DL Oxygen Delivery Device VENTILATOR VENTILATOR Blood Gas Ventilator Setting AC AC 18/800/PEEP8 24/550/PEEP8 Blood Gas Inspired Oxygen 50 % 50 % White Blood Count 13.4 TH/MM3 Red Blood Count 3.70 MIL/MM3 Hemoglobin 11.0 GM/DL Hematocrit 33.2 % Mean Corpuscular Volume 89.9 FL Mean Corpuscular Hemoglobin 29.7 PG Mean Corpuscular Hemoglobin 33.1 % Concent Red Cell Distribution Width 13.4 % Platelet Count 62 TH/MM3 Mean Platelet Volume 9.7 FL Neutrophils (%) (Auto) 96.7 % Lymphocytes (%) (Auto) 1.5 % Monocytes (%) (Auto) 1.5 % Eosinophils (%) (Auto) 0.1 % Basophils (%) (Auto) 0.2 % Neutrophils # (Auto) 13.0 TH/MM3 Lymphocytes # (Auto) 0.2 TH/MM3 Monocytes # (Auto) 0.2 TH/MM3 Eosinophils # (Auto) 0.0 TH/MM3 Basophils # (Auto) 0.0 TH/MM3 CBC Comment AUTO DIFF Differential Total Cells 100 Counted Neutrophils % (Manual) 58 % Band Neutrophils % 35 % Lymphocytes % 3 % Monocytes % 3 % Eosinophils % 1 % Neutrophils # (Manual) 12.5 TH/MM3 Differential Comment FINAL DIFF MANUAL Toxic Granulation 1+ Toxic Vacuolation PRESENT Platelet Estimate LOW Platelet Morphology Comment NORMAL Sodium Level 135 MEQ/L Potassium Level 3.1 MEQ/L Chloride Level 96 MEQ/L Carbon Dioxide Level 15.8 MEQ/L Anion Gap 23 MEQ/L Blood Urea Nitrogen 59 MG/DL Creatinine 6.17 MG/DL Estimat Glomerular Filtration 9 ML/MIN Rate Random Glucose 140 MG/DL Calcium Level 5.4 MG/DL Protein Corrected Calcium 6.3 MG/DL Phosphorus Level 8.3 MG/DL Magnesium Level 1.6 MG/DL Total Bilirubin 0.8 MG/DL Aspartate Amino Transf 69 U/L (AST/SGOT) Alanine Aminotransferase 46 U/L (ALT/SGPT) Alkaline Phosphatase 46 U/L Total Protein 5.0 GM/DL Albumin 1.7 GM/DL Random Vancomycin Level 15.4 COMMENT Test 07/22/16 11:50 Activated Partial 60.6 SEC Thromboplast Time Imaging Last Impressions Chest X-Ray 07/21/16 0000 Signed Impressions: Service Date/Time: Thursday, July 21, 2016 22:13 - CONCLUSION: Satisfactory central line positioning. Worsening aeration. [place] Guillermo MD Renal Ultrasound 07/20/16 0000 Signed Impressions: Service Date/Time: Wednesday, July 20, 2016 14:32 - CONCLUSION: 1. No acute findings. Renal ultrasound unremarkable. Bladder was not well-visualized. Jose Martin Valderrama MD Lower Extremity Ultrasound 07/20/16 0000 Signed Impressions: Service Date/Time: Wednesday, July 20, 2016 14:39 - CONCLUSION: Negative exam with no evidence of deep venous thrombosis. Alonzo Bradshaw MD Head CT 07/20/16 0000 Signed Impressions: Service Date/Time: Wednesday, July 20, 2016 18:21 - CONCLUSION: 1. No acute intracranial abnormalities. Mild mucosal thickening of the ethmoid air cells. Jose Martin Valderrama MD Chest CT 07/20/16 0000 Signed Impressions: Service Date/Time: Wednesday, July 20, 2016 11:28 - CONCLUSION: 1. Chronic scarring in the lung bases left greater than right. 2. No focal consolidation. 3. Bilateral adrenal masses left greater than right most consistent with adenomas. 4. Nonspecific bowel gas pattern noted in the upper abdomen with air-fluid levels in the small bowel. Alonzo Bradshaw MD Abdomen/Pelvis CT 07/20/16 0000 Signed Impressions: Service Date/Time: Wednesday, July 20, 2016 18:24 - CONCLUSION: 1. Lower abdominal ventral midline hernia containing loop of small bowel. Small bowel is mildly distended somewhat diffusely with fluid and air. Cannot exclude a low grade partial bowel obstruction in the area of herniation. 2. No abnormal fluid collections to suggest abscess. No free air or free fluid. 3. Basilar and dependent lung consolidation, left greater than right. Pneumonia could have this appearance. Small left effusion. 4. NG tip in stomach. Inferior vena cava filter present. Connelly catheter in bladder. Jose Martin Valderrama MD Objective Remarks GENERAL: Patient is 71 yo critically ill intubated and sedated. SKIN: Warm and dry. HEAD: Normocephalic. EYES: No scleral icterus. No injection or drainage. NECK: Supple, trachea midline. No JVD or lymphadenopathy. CARDIOVASCULAR: Regular rate and rhythm without murmurs, gallops, or rubs. RESPIRATORY: Breath sounds equal bilaterally. No accessory muscle use. GASTROINTESTINAL: Abdomen soft, non-tender, nondistended. Neuro: Sedated, intubated A/P Assessment and Plan Neuro/Psych: Peripheral neuropathy Chronic pain syndrome Patient is currently on propofol/fentanyl drips for sedation/analgesia while intubated Goal of RA SS -2 Daily sedation vacation when appropriate 07/20 CT brain: No acute intracranial abnormalities. CV: Elevated troponin Hypertension Dyslipidemia Lactic acidosis Peripheral vascular disease History of AAA Continue with pressors( Levo, Vaso) keep MAP>65mmHg Serial lactic acid monitoring On Stress dose steroids- HC 50mg IV Q8 Monitor CK/trop, Continue with ASA daily Echo showed EF 35-40% Resp: Acute hypoxemic respiratory failure Tobaccoism Continue with vent support keep sat >92% Ventilator bundle Bronchodilator therapy every 4 hours with albuterol every 2 hours. Dyspnea Spontaneous breathing trials when clinically indicated CT chest 07/20 revealed left greater than right basilar scarring. Bilateral adrenal adenomas. No focal consolidation GI: Start tube feeds- Nepro with goal rate 40ml/hr Protonix for GI prophylaxis Colace/as needed Senokot for bowel regimen CT abdomen reviewed. Gen surgery- Dr Roman- no surgical interventions. : Monitor renal function, I/O's, avoid nephrotoxins Cr:6.17 today from 4.80 - to start CVVHD today per enal. 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 Access - Left IJ CVL placed 07/20, Art line placed 07/21 -Right IJ vascath placed 07/22 Prophylaxis - GI - Protonix - DVT - SCD/heparin SQ -Doppler US LE negative for DVT Palliative care is following Patient is critically ill with resp failure, renal failure, septic shock and multiorgan injury. Prognosis guarded. Critical Care: The total critical care time was 30 minutes. Time to perform other separately billable procedures was not included in the critical care time. Marty Jones MD July 22, 2016 13:11
[2016-07-22] MEDS: fentaNYL DRIP 250 ML IV SCH (13:28)
--- NOTE | 2016-07-22 13:51 | HHI.HCPN ---
Reason for visit a. To assist with evaluation and management of symptoms including: dyspnea; agitation; pain; encephalopathy b. To assist medical decision maker(s) with: better understanding of current medical conditions; weighing benefits/burdens of medical treatment options; making medical treatment decisions. . Subjective/Interval History INTERVAL NOTE Mr. Lemus remains sedated, minimally responsive, intubate, mechanically ventilated in the SICU. His nurse reports that he became agitated again when sedation was held this AM. Renal function continues to decline. Dialysis access was placed last night and patient is awaiting dialysis now. Pt remains on two pressor agents; systolic BPs now above 100. He has not appeared painful. Family is at bedside. Dr. Lopez was consulted to see if the hernia noted on CT scan might be playing role in this process. Dr. Lopez felt the hernia was easily reducible and therefore not an issue. Tmax 99.3. BP 100-118/ 54-60; RR 24; Pulse ox 95% on 45% FI02. Urine output 210. Bowels moving. WBC 13.4; Hg 11.0; Plt 62 BUN 59; creat 6.17; GFR 9; Ca corrected 6.3 Alb 1.7 Blood cx --> Group A Beta Strep . Family/friend interactions is at bedside. She is very upset that dialysis is not taking place yet ( she was told it would likely start last night). She is fearful that further delay may cause irreparable harm. Nursing has been working with her to speak with the dialysis team. Spoke with and daughter for about 15 minutes. Updated them on current status. Answered all questions. . Advance Directives Living Will: Completed, but not made available Health Care Surrogate: Completed, but not made available Durable Power of Clinical Evaluator: Never completed Advance Directive Specifics Date completed: will bring in the advance directive. Date of completion is unknown at this time. . Health Care Surrogate(s): will bring in a copy of the advance directive. She reports that she is listed as the designated health care surrogate. . Documented care wishes: will bring in a copy of the advance directive. At this point we do not have any written documentation of the patient's health care goals/preferences. . Objective Vital Signs Date Time Temp Pulse Resp B/P Pulse Ox O2 Delivery O2 Flow Rate FiO2 07/22/16 12:00 98.1 103 24 105/54 95 07/22/16 12:00 103 07/22/16 12:00 45 07/22/16 10:00 104 07/22/16 08:56 92 45 07/22/16 08:00 45 07/22/16 08:00 97.0 103 24 101/54 93 Automatic Cuff 07/22/16 08:00 104 07/22/16 06:00 98 07/22/16 04:08 94 45 07/22/16 04:00 97.2 106 24 96 124/64 07/22/16 04:00 106 07/22/16 04:00 45 07/22/16 02:00 104 07/22/16 01:24 96 45 07/22/16 00:00 50 07/22/16 00:00 116 07/22/16 00:00 98.2 116 24 95 118/60 07/21/16 22:36 94 50 07/21/16 22:00 120 07/21/16 20:00 112 07/21/16 20:00 99.3 112 24 106/58 96 07/21/16 20:00 50 07/21/16 19:47 96 50 07/21/16 18:00 103 07/21/16 17:03 93 50 07/21/16 16:00 116 07/21/16 16:00 100.4 116 20 104/55 92 07/21/16 16:00 50 07/21/16 14:00 126 Intake & Output 07/22/16 07/22/16 07:00 19:00 Intake Total 4674 ml Output Total 275 ml Balance 4399 ml Intake IV Total 4674 ml Output Urine Total 150 ml Gastric Drainage Total 125 ml # Bowel Movements 1 . Physical Exam CONSTITUTIONAL/GENERAL: This is an overweight male intubated/mechanically ventilated/sedated in a surgical intensive care unit bed. He does not awaken to voice or examination. No obvious distress. TUBES/LINES/DRAINS: Orotracheal tube; orogastric tube; left internal jugular central line; vas-cath right internal jugular; peripheral IV; SCDs; Connelly catheter SKIN: No jaundice, rashes, or lesions. No wounds seen anteriorly. Skin temperature warm but not diaphoretic. EYES: Pupils equal and round. Unable to assess extraocular motions. No scleral icterus. No injection or drainage. Fundi not examined. ENT: Unable to assess hearing. Nose without bleeding or purulent drainage. Oropharynx difficult to visualize due to intubations -- no obvious erythema, lesions, exudate. NECK: Trachea midline. CARDIOVASCULAR: Borderline tachycardia; Irregular rhythm without murmurs, gallops, or rubs. No JVD. Cannot palpate foot pulses. RESPIRATORY/CHEST: Symmetric, unlabored respirations. Clear to auscultation. Breath sounds equal bilaterally but air movement diminished at bases. No wheezes , rales, or rhonchi. GASTROINTESTINAL: Abdomen soft, non-tender, nondistended. No hepato-splenomegaly , or palpable masses. No guarding. Bowel sounds hypoactive. GENITOURINARY: Without palpable bladder distension. Connelly catheter in place. MUSCULOSKELETAL: Extremities without clubbing, cyanosis, or edema. No joint tenderness or effusion noted. No calf tenderness. No mottling. NEUROLOGICAL: Sedateddoes not stir to voice or examination. No spontaneous movements. Withdraws to noxious stimulus. PSYCHIATRIC: Unable to assess due to sedation.. . Diagnostic Tests Laboratory Laboratory Tests Test 07/20/16 07/20/16 07/20/16 07/20/16 09:15 09:30 09:33 12:10 White Blood Count 12.8 TH/MM3 (4.0-11.0) Red Blood Count 4.99 MIL/MM3 (4.50-5.90) Hemoglobin 15.4 GM/DL (13.0-17.0) Hematocrit 44.8 % (39.0-51.0) Mean Corpuscular Volume 89.8 FL (80.0-100.0) Mean Corpuscular Hemoglobin 30.9 PG (27.0-34.0) Mean Corpuscular Hemoglobin 34.4 % Concent (32.0-36.0) Red Cell Distribution Width 12.7 % (11.6-17.2) Platelet Count 266 TH/MM3 (150-450) Mean Platelet Volume 8.2 FL (7.0-11.0) Neutrophils (%) (Auto) 87.7 % (16.0-70.0) Lymphocytes (%) (Auto) 5.9 % (9.0-44.0) Monocytes (%) (Auto) 5.7 % (0.0-8.0) Eosinophils (%) (Auto) 0.0 % (0.0-4.0) Basophils (%) (Auto) 0.7 % (0.0-2.0) Neutrophils # (Auto) 11.2 TH/MM3 (1.8-7.7) Lymphocytes # (Auto) 0.8 TH/MM3 (1.0-4.8) Monocytes # (Auto) 0.7 TH/MM3 (0-0.9) Eosinophils # (Auto) 0.0 TH/MM3 (0-0.4) Basophils # (Auto) 0.1 TH/MM3 (0-0.2) CBC Comment DIFF FINAL Differential Comment Prothrombin Time 16.7 SEC (9.8-11.6) Prothromb Time International 1.5 RATIO Ratio Activated Partial 33.0 SEC Thromboplast Time (24.3-30.1) D-Dimer Quantitative (PE/DVT) 14.64 MG/L FEU (0.00-0.50) Sodium Level 143 MEQ/L (136-145) Potassium Level 3.6 MEQ/L (3.5-5.1) Chloride Level 105 MEQ/L (98-107) Carbon Dioxide Level 18.7 MEQ/L (21.0-32.0) Anion Gap 19 MEQ/L (5-15) Blood Urea Nitrogen 27 MG/DL (7-18) Creatinine 3.00 MG/DL (0.60-1.30) Estimat Glomerular Filtration 21 ML/MIN (>89) Rate Random Glucose 62 MG/DL (74-106) Calcium Level 9.4 MG/DL (8.5-10.1) Magnesium Level 1.8 MG/DL (1.5-2.5) Total Bilirubin 1.1 MG/DL (0.2-1.0) Aspartate Amino Transf 39 U/L (15-37) (AST/SGOT) Alanine Aminotransferase 34 U/L (12-78) (ALT/SGPT) Alkaline Phosphatase 91 U/L (45-117) Troponin I 0.14 NG/ML (0.02-0.05) Total Protein 9.0 GM/DL (6.4-8.2) Albumin 3.9 GM/DL (3.4-5.0) Lactic Acid Level 7.7 mmol/L 5.8 mmol/L (0.4-2.0) (0.4-2.0) B-Type Natriuretic Peptide 207 PG/ML (0-100) Blood Gas Puncture Site LT RADIAL Blood Gas Patient Temperature 98.6 Blood Gas HCO3 11 mmol/L (22-26) Blood Gas Base Excess -13.7 mmol/L (-2-2) Blood Gas Oxygen Saturation 95 % (90-100) Arterial Blood pH 7.34 (7.380-7.420) Arterial Blood Partial 21 mmHG (38-42) Pressure CO2 Arterial Blood Partial 118 mmHG Pressure O2 (61-120) Arterial Blood Oxygen Content 19.7 Vol % (12.0-20.0) Arterial Blood 0.5 % (0-4) Carboxyhemoglobin Arterial Blood Methemoglobin 0.8 % (0-2) Blood Gas Hemoglobin 14.6 G/DL (12.0-16.0) Oxygen Delivery Device NONREBREATHER Blood Gas Liter Flow 15 L/M Blood Gas Inspired Oxygen 100 % Test 07/20/16 07/20/16 07/20/16 07/20/16 13:50 14:00 15:00 18:47 Nasal Screen MRSA (PCR) MRSA NOT DETECTED (NOT DETECT) Urine Color YELLOW (YELLW/STRAW) Urine Turbidity CLOUDY (CLEAR) Urine pH 5.5 (5.0-8.5) Urine Specific [place] 1.022 (1.002-1.035) Urine Protein 300 mg/dL (NEG-TRACE) Urine Glucose (UA) TRACE mg/dL (NEG) Urine Ketones NEG mg/dL (NEG) Urine Occult Blood LARGE (NEG) Urine Nitrite NEG (NEG) Urine Bilirubin NEG (NEG) Urine Urobilinogen LESS THAN 2.0 MG/DL (LESS THAN 2.0) Urine Leukocyte Esterase MOD (NEG) Urine RBC 6 /hpf (0-3) Urine WBC 54 /hpf (0-5) Urine WBC Clumps MOD (NONE) Urine Squamous Epithelial 3 /hpf (0-5) Cells Urine Uric Acid Crystals FEW /hpf (NONE) Urine Amorphous Sediment RARE Urine Bacteria FEW /hpf (NONE) Urine Mucus FEW /lpf (OCC) Microscopic Urinalysis Comment CATH-CULTURE IND Blood Gas Puncture Site RENAE RT BRACHIAL Blood Gas Patient Temperature 98.6 98.6 Blood Gas HCO3 14 mmol/L 15 mmol/L (22-26) (22-26) Blood Gas Base Excess -13.9 mmol/L -10.7 mmol/L (-2-2) (-2-2) Blood Gas Oxygen Saturation 96 % (90-100) 94 % (90-100) Arterial Blood pH 7.09 7.29 (7.380-7.420) (7.380-7.420) Arterial Blood Partial 49 mmHg (38-42) 31 mmHg (38-42) Pressure CO2 Arterial Blood Partial 358 mmHg 100 mmHg Pressure O2 (61-120) (61-120) Arterial Blood Oxygen Content 17.2 Vol % 15.7 Vol % (12.0-20.0) (12.0-20.0) Arterial Blood 0.3 % (0-4) 0.8 % (0-4) Carboxyhemoglobin Arterial Blood Methemoglobin 2.1 % (0-2) 2.5 % (0-2) Blood Gas Hemoglobin 12.1 G/DL 11.8 G/DL (12.0-16.0) (12.0-16.0) Oxygen Delivery Device VENT VENTILATOR Blood Gas Ventilator Setting [facility]/10/14.2IT [facility]/ Blood Gas Inspired Oxygen 100 % 50 % Test 07/20/16 07/21/16 07/21/16 07/21/16 20:27 01:20 06:08 11:30 Lactic Acid Level 6.0 mmol/L 5.7 mmol/L 6.3 mmol/L (0.4-2.0) (0.4-2.0) (0.4-2.0) Troponin I 0.26 NG/ML (0.02-0.05) White Blood Count 11.0 TH/MM3 (4.0-11.0) Red Blood Count 3.60 MIL/MM3 (4.50-5.90) Hemoglobin 11.1 GM/DL (13.0-17.0) Hematocrit 32.7 % (39.0-51.0) Mean Corpuscular Volume 91.0 FL (80.0-100.0) Mean Corpuscular Hemoglobin 30.9 PG (27.0-34.0) Mean Corpuscular Hemoglobin 33.9 % Concent (32.0-36.0) Red Cell Distribution Width 13.8 % (11.6-17.2) Platelet Count 124 TH/MM3 (150-450) Mean Platelet Volume 9.8 FL (7.0-11.0) Neutrophils (%) (Auto) 93.6 % (16.0-70.0) Lymphocytes (%) (Auto) 3.0 % (9.0-44.0) Monocytes (%) (Auto) 2.5 % (0.0-8.0) Eosinophils (%) (Auto) 0.6 % (0.0-4.0) Basophils (%) (Auto) 0.3 % (0.0-2.0) Neutrophils # (Auto) 10.3 TH/MM3 (1.8-7.7) Lymphocytes # (Auto) 0.3 TH/MM3 (1.0-4.8) Monocytes # (Auto) 0.3 TH/MM3 (0-0.9) Eosinophils # (Auto) 0.1 TH/MM3 (0-0.4) Basophils # (Auto) 0.0 TH/MM3 (0-0.2) CBC Comment AUTO DIFF Differential Total Cells 100 Counted Neutrophils % (Manual) 55 % (16-70) Band Neutrophils % 29 % (0-6) Lymphocytes % 3 % (9-44) Monocytes % 5 % (0-8) Neutrophils # (Manual) 10.1 TH/MM3 (1.8-7.7) Metamyelocytes 7 % (0-1) Myelocytes 1 % (0-0) Differential Comment FINAL DIFF MANUAL Toxic Granulation 1+ (NORMAL) Toxic Vacuolation PRESENT (NONE SEEN) Dohle Bodies PRESENT (NONE SEEN) Platelet Estimate LOW (NORMAL) Platelet Morphology Comment NORMAL (NORMAL) Prothrombin Time 20.6 SEC (9.8-11.6) Prothromb Time International 1.8 RATIO Ratio Activated Partial 49.0 SEC Thromboplast Time (24.3-30.1) Sodium Level 135 MEQ/L (136-145) Potassium Level 3.5 MEQ/L (3.5-5.1) Chloride Level 100 MEQ/L (98-107) Carbon Dioxide Level 19.7 MEQ/L (21.0-32.0) Anion Gap 15 MEQ/L (5-15) Blood Urea Nitrogen 47 MG/DL (7-18) Creatinine 4.80 MG/DL (0.60-1.30) Estimat Glomerular Filtration 12 ML/MIN (>89) Rate Random Glucose 275 MG/DL (74-106) Calcium Level 5.7 MG/DL (8.5-10.1) Protein Corrected Calcium 6.6 MG/DL (8.5-10.1) Phosphorus Level 7.6 MG/DL (2.5-4.9) Magnesium Level 1.2 MG/DL (1.5-2.5) Total Bilirubin 0.6 MG/DL (0.2-1.0) Aspartate Amino Transf 58 U/L (15-37) (AST/SGOT) Alanine Aminotransferase 36 U/L (12-78) (ALT/SGPT) Alkaline Phosphatase 32 U/L (45-117) Total Protein 5.0 GM/DL (6.4-8.2) Albumin 2.0 GM/DL (3.4-5.0) Urine Eosinophils NONE SEEN /HPF (NONE SEEN) Urine Osmolality 324 MOSM/KG (300-1300) Urine Random Creatinine 113.5 MG/DL Urine Random Sodium 62 MEQ/L Stool C. difficile Toxin (PCR) NEGATIVE (NEGATIVE) Stl C. difficile Toxin PRESUMPTIVE Epiderm 027 NEGATIVE (NEGATIVE) Test 07/21/16 07/21/16 07/21/16 07/22/16 14:40 16:29 18:21 06:00 Total Creatine Kinase 2214 U/L (39-308) Creatine Kinase MB 26.6 NG/ML (0.5-3.6) Creatine Kinase MB % 1.2 % (0.0-4.0) Troponin I 0.28 NG/ML (0.02-0.05) Blood Gas Puncture Site RT RADIAL ART LINE Blood Gas Patient Temperature 98.6 98.6 Blood Gas HCO3 17 mmol/L 16 mmol/L (22-26) (22-26) Blood Gas Base Excess -9.9 mmol/L -9.6 mmol/L (-2-2) (-2-2) Blood Gas Oxygen Saturation 81 % (90-100) 93 % (90-100) Arterial Blood pH 7.18 7.27 (7.380-7.420) (7.380-7.420) Arterial Blood Partial 48 mmHg (38-42) 36 mmHg (38-42) Pressure CO2 Arterial Blood Partial 56 mmHg 89 mmHg Pressure O2 (61-120) (61-120) Arterial Blood Oxygen Content 12.9 Vol % 14.6 Vol % (12.0-20.0) (12.0-20.0) Arterial Blood 0.7 % (0-4) 0.9 % (0-4) Carboxyhemoglobin Arterial Blood Methemoglobin 1.7 % (0-2) 1.8 % (0-2) Blood Gas Hemoglobin 11.3 G/DL 11.0 G/DL (12.0-16.0) (12.0-16.0) Oxygen Delivery Device VENTILATOR VENTILATOR Blood Gas Ventilator Setting AC AC 18/800/PEEP8 24/550/PEEP8 Blood Gas Inspired Oxygen 50 % 50 % White Blood Count 13.4 TH/MM3 (4.0-11.0) Red Blood Count 3.70 MIL/MM3 (4.50-5.90) Hemoglobin 11.0 GM/DL (13.0-17.0) Hematocrit 33.2 % (39.0-51.0) Mean Corpuscular Volume 89.9 FL (80.0-100.0) Mean Corpuscular Hemoglobin 29.7 PG (27.0-34.0) Mean Corpuscular Hemoglobin 33.1 % Concent (32.0-36.0) Red Cell Distribution Width 13.4 % (11.6-17.2) Platelet Count 62 TH/MM3 (150-450) Mean Platelet Volume 9.7 FL (7.0-11.0) Neutrophils (%) (Auto) 96.7 % (16.0-70.0) Lymphocytes (%) (Auto) 1.5 % (9.0-44.0) Monocytes (%) (Auto) 1.5 % (0.0-8.0) Eosinophils (%) (Auto) 0.1 % (0.0-4.0) Basophils (%) (Auto) 0.2 % (0.0-2.0) Neutrophils # (Auto) 13.0 TH/MM3 (1.8-7.7) Lymphocytes # (Auto) 0.2 TH/MM3 (1.0-4.8) Monocytes # (Auto) 0.2 TH/MM3 (0-0.9) Eosinophils # (Auto) 0.0 TH/MM3 (0-0.4) Basophils # (Auto) 0.0 TH/MM3 (0-0.2) CBC Comment AUTO DIFF Differential Total Cells 100 Counted Neutrophils % (Manual) 58 % (16-70) Band Neutrophils % 35 % (0-6) Lymphocytes % 3 % (9-44) Monocytes % 3 % (0-8) Eosinophils % 1 % (0-4) Neutrophils # (Manual) 12.5 TH/MM3 (1.8-7.7) Differential Comment FINAL DIFF MANUAL Toxic Granulation 1+ (NORMAL) Toxic Vacuolation PRESENT (NONE SEEN) Platelet Estimate LOW (NORMAL) Platelet Morphology Comment NORMAL (NORMAL) Sodium Level 135 MEQ/L (136-145) Potassium Level 3.1 MEQ/L (3.5-5.1) Chloride Level 96 MEQ/L (98-107) Carbon Dioxide Level 15.8 MEQ/L (21.0-32.0) Anion Gap 23 MEQ/L (5-15) Blood Urea Nitrogen 59 MG/DL (7-18) Creatinine 6.17 MG/DL (0.60-1.30) Estimat Glomerular Filtration 9 ML/MIN (>89) Rate Random Glucose 140 MG/DL (74-106) Calcium Level 5.4 MG/DL (8.5-10.1) Protein Corrected Calcium 6.3 MG/DL (8.5-10.1) Phosphorus Level 8.3 MG/DL (2.5-4.9) Magnesium Level 1.6 MG/DL (1.5-2.5) Total Bilirubin 0.8 MG/DL (0.2-1.0) Aspartate Amino Transf 69 U/L (15-37) (AST/SGOT) Alanine Aminotransferase 46 U/L (12-78) (ALT/SGPT) Alkaline Phosphatase 46 U/L (45-117) Total Protein 5.0 GM/DL (6.4-8.2) Albumin 1.7 GM/DL (3.4-5.0) Random Vancomycin Level 15.4 COMMENT Test 07/22/16 11:50 Activated Partial 60.6 SEC Thromboplast Time (24.3-30.1) . Result Diagram: 07/22/16 0600 07/22/16 0600 Microbiology Microbiology Date/Time Procedure Status Source Growth 07/20/16 09:15 Aerobic Blood Culture - Preliminary Resulted Blood Peripheral Group A Beta Strep 07/20/16 09:15 Anaerobic Blood Culture - Preliminary Resulted Gram Positive Cocci 07/20/16 09:30 Aerobic Blood Culture - Preliminary Resulted Blood Peripheral Gram Positive Cocci 07/20/16 09:30 Anaerobic Blood Culture - Preliminary Resulted Gram Positive Cocci 07/20/16 14:00 Urine Culture - Final Complete Urine Catheterized Urine NO GROWTH IN 48 HOURS. 07/21/16 11:30 Rotavirus Antigen - Final Complete Stool Stool NEGATIVE - ROTAVIRUS ANTIGEN IS ABSEN... 07/21/16 11:30 - Final Complete Stool Stool NO ENTERIC PATHOGENS DETECTED BY PCR... 07/21/16 11:30 Cryptosporidium Exam Resulted Stool Stool Pending 07/21/16 11:30 Stool Pus (SAVAGE) - Final Resulted Stool Stool MODERATE WBC'S 07/21/16 11:30 Giardia Antigen (SAVAGE) Resulted Stool Stool Pending 07/21/16 11:30 Legionella Antigen - Final Complete Urine Catheterized Urine PRESUMPTIVE NEGATIVE FOR LEGIONELLA P... 07/21/16 11:30 Streptococcus pneumoniae Antigen (M - Final Complete Urine Catheterized Urine PRESUMPTIVE NEGATIVE FOR STREPTOCOCCU... 07/21/16 14:30 Aerobic Blood Culture - Preliminary Resulted Blood Peripheral NO GROWTH IN 1 DAY 07/21/16 14:30 Anaerobic Blood Culture - Preliminary Resulted Blood Peripheral NO GROWTH IN 1 DAY 07/21/16 14:45 Aerobic Blood Culture - Preliminary Resulted Blood Peripheral NO GROWTH IN 1 DAY 07/21/16 14:45 Anaerobic Blood Culture - Preliminary Resulted Blood Peripheral NO GROWTH IN 1 DAY 07/21/16 18:25 Gram Stain - Final Resulted Sputum Endotracheal 07/21/16 18:25 Sputum Culture - Preliminary Resulted Sputum Endotracheal NO GROWTH IN 24 HOURS. 07/22/16 03:57 Aerobic Blood Culture Received Blood Peripheral Pending 07/22/16 03:57 Anaerobic Blood Culture Received Blood Peripheral Pending . Imaging Last Impressions Chest X-Ray 07/21/16 0000 Signed Impressions: Service Date/Time: Thursday, July 21, 2016 22:13 - CONCLUSION: Satisfactory central line positioning. Worsening aeration. [place] Guillermo MD Renal Ultrasound 07/20/16 0000 Signed Impressions: Service Date/Time: Wednesday, July 20, 2016 14:32 - CONCLUSION: 1. No acute findings. Renal ultrasound unremarkable. Bladder was not well-visualized. Jose Martin Valderrama MD Lower Extremity Ultrasound 07/20/16 0000 Signed Impressions: Service Date/Time: Wednesday, July 20, 2016 14:39 - CONCLUSION: Negative exam with no evidence of deep venous thrombosis. Alonzo Bradshaw MD Head CT 07/20/16 0000 Signed Impressions: Service Date/Time: Wednesday, July 20, 2016 18:21 - CONCLUSION: 1. No acute intracranial abnormalities. Mild mucosal thickening of the ethmoid air cells. Jose Martin Valderrama MD Chest CT 07/20/16 0000 Signed Impressions: Service Date/Time: Wednesday, July 20, 2016 11:28 - CONCLUSION: 1. Chronic scarring in the lung bases left greater than right. 2. No focal consolidation. 3. Bilateral adrenal masses left greater than right most consistent with adenomas. 4. Nonspecific bowel gas pattern noted in the upper abdomen with air-fluid levels in the small bowel. Alonzo Bradshaw MD Abdomen/Pelvis CT 07/20/16 0000 Signed Impressions: Service Date/Time: Wednesday, July 20, 2016 18:24 - CONCLUSION: 1. Lower abdominal ventral midline hernia containing loop of small bowel. Small bowel is mildly distended somewhat diffusely with fluid and air. Cannot exclude a low grade partial bowel obstruction in the area of herniation. 2. No abnormal fluid collections to suggest abscess. No free air or free fluid. 3. Basilar and dependent lung consolidation, left greater than right. Pneumonia could have this appearance. Small left effusion. 4. NG tip in stomach. Inferior vena cava filter present. Connelly catheter in bladder. Jose Martin Valderrama MD . Procedures * Intubation/mechanical ventilation 07/20/16 * Left internal jugular central line placement 07/20/16 * Right jugular vas-cath placement . . Assessment and Plan Disease Oriented Problem List: (1) Severe sepsis with acute organ dysfunction Comment: Blood cx growing out Group A strep . (2) Respiratory failure (3) Lactic acidosis (4) Hypoxia (5) Peripheral vascular disease (6) Hypertension (7) Dyslipidemia (8) Chronic anticoagulation (9) Elevated troponin (10) History of DVT (deep vein thrombosis) (11) Acute kidney injury (12) Thrombocytopenia Symptom Scale: (1) Pain 0-10 Scale: Unable to quantify Comment: Patient has chronic pain mostly in the lower extremities from a combination of peripheral vascular disease and diabetic neuropathy. He had been prescribed opiates in the past but normally takes no analgesics because he doesn't like the side effects. Additional sources of discomfort at this time would include prolonged bedbound status; orotracheal/orogastric intubations; Connelly catheter; vascular access lines. . (2) Dyspnea 0-10 Scale: Unable to quantify (dyspnea seems managed with mechanical ventilation.) Comment: Controlled with mechanical ventilation . (3) Encephalopathy 0-10 Scale: Unable to quantify Comment: Encephalopathy is most likely multifactorial and in large part due to the septic shock. Based on the history, it is unlikely that the duration of hypoglycemia or hypotension would've caused any type of permanent damage. There is no prior history of underlying dementia. . Pertinent Non-Medical Issues Psychosocial: Patient is well supported by his spouse and daughter who live locally, many friends who live locally, and 2 daughters who have flown in from [place] and [place]. Spiritual: Patient was raised in a Voodoo home. Now identifies himself as a [employer]regational. Restorationism and spirituality have not played a large part in his life of late. Legal: reports the patient has completed an advanced directive. She will bring a copy into scanned into the medical record. Ethical issues impacting care: Patient is currently incapacitated to make his own health care decisions. It remains uncertain if he will regain capacity to do so. . Important Contacts == Spouse (Alysia Lemus) [phone] == Daughter (Adenike) [phone] . Prognosis Though Mr Lemus is quite critically ill with septic shock and multiple organs being affected, it is also important to note that in spite of his underlying chronic illnesses , his functional status was reasonably good prior to becoming acutely ill so suddenly. Family, understandably, want to give him a chance to see if he is able to get through this acute period. He had a similar episode of severe illness approximately 10 years ago after being hospitalized with a ruptured appendix. Family has witnessed him being able to recover from that. The rapidity of progression to overwhelming sepsis is a poor prognostic sign. In addition, he will need ample fluids to fight shock and hypotension which can easily lead to congestive failure given his history. . Code Status: Full Code Plan == Code Status : FULL CODE == Decision Making: The patient is currently incapacitated to make his own health care decisions. will bring in the patient's completed advanced directive. She informs me that she is listed as the designated health care surrogate. If there is no advanced directive, would still be asked to serve as proxy decision-maker under the hierarchy of proxy's in the [place] statutes. == Goals of medical treatment: The patient's spouse and 2 of the daughters present want ongoing and full aggressive care for the time being. They are aware how ill the patient is want to see if he is able to turn the corner. As noted above they would want all resuscitation attempts tried at this point in time. On the other hand, family reports that the patient would not want to be maintained on life support if there is not hopeful for meaningful recovery. is even uncertain if patient would ever agree to ongoing hemodialysis. If the patient continues to decline in spite of aggressive care were there is no obvious improvement in spite of aggressive care want to reconsider goals. == Pain: As noted above, patient has a number of different pain syndromes. Currently pain is being controlled with a fentanyl drip. This appears to be working. No further recommendations for pain control at this time. ==Dyspnea: Dyspnea currently being controlled with mechanical ventilation. No further recommendations at this time. == Agitation: Agitation is probably secondary to a multifactorial delirium. Symptoms are currently being controlled with propofol. Hopefully as the patient 's underlying infection is being treated, propofol can be weaned and agitation will be less. No further recommendations at this time. == Encephalopathy: Also likely due to a multifactorial delirium. No evidence at this time to suggest there is been any kind of long lasting adverse effects from either hypoglycemia or hypotension or hypoxia.. No further recommendations at this time. == is bringing in a copy of the patient's advanced directive for us to scan into the electronic medical record. Has not arrived yet. == Palliative care will continue to follow to assist with symptom management and to further clarify goals of medical treatment as the clinical course evolves. . Attestation To help prompt me to consider important information that might be impacting today's encounter and assessment, information from prior notes written by myself or my colleagues may have been "brought forward" into today's note. My signature on this note, however, is an attestation that I personally performed the exam, history, and/or decision-making noted today, and, unless otherwise indicated, the interactions with patient, family, and staff as well as the review of records all occurred today. I also attest that the listed assessment and stated plan reflect my best clinical judgment today based on the combination of historical information, prior notes, and today's exam/ interactions. When time spent is documented, it refers only to time spent today by the signer, or if indicated, combined time spent today by collaborating physician/nurse practitioner. . Jameson Conklin MD July 22, 2016 13:51
[2016-07-22] MEDS ORDERED: VANCOMYCIN 1,500 MG/NS 500 ML IV ONE ×2 (14:00)
[2016-07-22] MEDS ORDERED: CALCIUM GLUCONATE 10% 1 GM/10 ML VIAL ONE (14:50)
[2016-07-22] MEDS: SODIUM CHLOR 0.9% IV SCH ×4 (16:43→22:17)
[2016-07-22] MEDS: CALCIUM GLUCONATE IV SCH ×4 (16:43→22:17)
[2016-07-22 17:19] LABS: APTT (PATIENT) 134.7 SEC (24.3-30.1)
[2016-07-22 17:20] LABS: APTT (PATIENT) GREATER THAN 153.4 SEC (24.3-30.1)
[2016-07-22 17:47] LABS: APTT (PATIENT) 86.2 SEC (24.3-30.1)
[2016-07-22 17:49] LABS: APTT (PATIENT) 119.6 SEC (24.3-30.1)
[2016-07-22 18:43] LABS: APTT (PATIENT) 73.5 SEC (24.3-30.1)
[2016-07-22 18:43] LABS: APTT (PATIENT) 68.4 SEC (24.3-30.1)
[2016-07-22 19:49] LABS: APTT (PATIENT) 63.2 SEC (24.3-30.1)
[2016-07-22 21:13] LABS: BLOOD GAS BASE EXCESS -5.5 mmol/L (-2-2); BLOOD GAS CARBOXYHEMOGLOBIN 0.9 % (0-4); BLOOD GAS HCO3 18 mmol/L (22-26); BLOOD GAS METHEMOGLOBIN 1.5 % (0-2); BLOOD GAS O2 HGB SATURATION 92 % (90-100); BLOOD GAS OXYGEN CONTENT 14.6 Vol % (12.0-20.0); BLOOD GAS PCO2 28 mmHg (38-42); BLOOD GAS PO2 77 mmHg (61-120); BLOOD GAS TOTAL HGB 11.3 G/DL (12.0-16.0); CRITICAL VALUE NO; OXYGEN DEVICE VENTILATOR; TEMP CORR TO 98.6
[2016-07-22 21:14] LABS: DRAW SITE ALINE; FIO2 45 %; STAT NO; VENT SETTINGS AC/24/550/PEEP8
[2016-07-22 21:44] LABS: APTT (PATIENT) 62.6 SEC (24.3-30.1); APTT (PATIENT) 64.1 SEC (24.3-30.1)
[2016-07-22 21:58] LABS: PROTHROMBIN TIME - PATIENT 34.3 SEC (9.8-11.6)
[2016-07-22 23:21] LABS: APTT (PATIENT) 64.8 SEC (24.3-30.1)
[2016-07-22 23:22] LABS: APTT (PATIENT) 68.2 SEC (24.3-30.1)
[2016-07-23] VITALS (18 sets, daily range): BP systolic 112–135; BP diastolic 54–60; PULSE 95–114; RESP 21–24; TEMP 97–98.5; O2SAT 92–99
[2016-07-23] MEDS: CALCIUM GLUCONATE IV SCH ×12 (00:02→23:52)
[2016-07-23] MEDS: INSULIN NovoLIN REGULAR SUPPLEMENTAL SCALE SQ SCH ×4 (00:02→18:24)
[2016-07-23] MEDS: SODIUM CHLOR 0.9% IV SCH ×12 (00:02→23:52)
[2016-07-23] MEDS: AMPICILLIN-SULBACTAM INJ 1,500 MG in SODIUM CHLORIDE 0.9% INJ 100 ML IV SCH ×3 (00:07→15:36)
[2016-07-23] MEDS: RESP: ALBUTEROL 2.5 MG/IPRATROPIUM 0.5 MG NEB (SCH) INH ×6 (00:26→19:46)
[2016-07-23] MEDS: PROPOFOL 1000 MG/100 ML INJ 100 ML IV SCH ×4 (02:23→18:16)
[2016-07-23 03:27] LABS: APTT (PATIENT) 68.2 SEC (24.3-30.1)
[2016-07-23 03:28] LABS: APTT (PATIENT) 68.9 SEC (24.3-30.1)
[2016-07-23] MEDS: CHLORHEXIDINE GLUCONATE 2 % 1 PACK (2 CLOTHS) TOP SCH (04:00)
[2016-07-23] MEDS: HYDROCORTISONE SOD SUCCINATE 100 MG VIAL IV PUSH SCH ×3 (04:25→22:21)
[2016-07-23] MEDS: CLINDAMYCIN INJ 900 MG in SODIUM CHLORIDE 0.9% INJ 100 ML IV SCH ×4 (04:25→22:46)
[2016-07-23 07:05] LABS: AUTOMATED NEUTROPHIL # 15.4 TH/MM3 (1.8-7.7); BASOPHIL # 0.1 TH/MM3 (0-0.2); BASOPHIL % 0.4 % (0.0-2.0); EOSINOPHIL % 0.1 % (0.0-4.0); HEMATOCRIT 32.2 % (39.0-51.0); LYMPH % 1.1 % (9.0-44.0); LYMPHOCYTE # 0.2 TH/MM3 (1.0-4.8); MEAN CELL VOLUME 89.3 FL (80.0-100.0); MEAN CORPUSCULAR HEMOGLOBIN 29.5 PG (27.0-34.0); MONO % 2.1 % (0.0-8.0); NEUT % 96.3 % (16.0-70.0); PLATELET COUNT 39 TH/MM3 (150-450); RED BLOOD COUNT 3.61 MIL/MM3 (4.50-5.90); RED CELL DISTRIBUTION WIDTH 13.6 % (11.6-17.2)
[2016-07-23 07:10] LABS: HEMO FLAGS AUTO DIFF
[2016-07-23 07:15] LABS: APTT (PATIENT) 70.9 SEC (24.3-30.1)
[2016-07-23 07:43] LABS: BICARBONATE 16.8 MEQ/L (21.0-32.0); TOTAL BILIRUBIN ADULT 0.9 MG/DL (0.2-1.0)
[2016-07-23 07:55] LABS: CALCIUM-PROTEIN CORRECTED 6.4 MG/DL (8.5-10.1); POTASSIUM 2.8 MEQ/L (3.5-5.1)
[2016-07-23 08:10] LABS: CKMB 28.7 NG/ML (0.5-3.6)
[2016-07-23] MEDS: DOCUSATE SODIUM 100 MG CAP PO SCH ×2 (09:00→22:21)
[2016-07-23] MEDS: ASPIRIN 81 MG CHEW TAB CHEW SCH (09:00)
[2016-07-23 09:45] LABS: BANDS 13 % (0-6); NEUTROPHIL # MANUAL DIFF 15.8 TH/MM3 (1.8-7.7); PLATELET ESTIMATE SMEAR LOW (NORMAL); PLATELET MORPHOLOGY NORMAL (NORMAL); POLYS (SEG NEUTROPHILS) 86 % (16-70); SCAN/DIFF FINAL DIFF MANUAL; WBC DIFF SAMPLE 100
[2016-07-23] MEDS: PANTOPRAZOLE SODIUM 40 MG VIAL IV SCH (09:46)
[2016-07-23] MEDS: CHLORHEXIDINE 0.12% (ORAL KIT) 15 ML CUP MT SCH ×2 (09:46→20:35)
[2016-07-23] MEDS: SODIUM CHLORIDE 0.9% FLUSH 10 ML FLUSH IVF SCH (09:47)
[2016-07-23] MEDS: SODIUM CHLORIDE 0.9% FLUSH 10 ML FLUSH IV FLUSH SCH ×2 (09:47→22:21)
[2016-07-23] MEDS ORDERED: POTASSIUM CHLOR 40 MEQ PREMIX 100 ML IV ONE (10:30)
[2016-07-23] MEDS ORDERED: CALCIUM GLUCONATE INJ 2 GM in DEXTROSE 5% IN WATER 100ML INJ 100 ML IV ONE ×2 (10:30)
--- NOTE | 2016-07-23 11:28 | HHI.HCPN ---
Reason for visit a. To assist with evaluation and management of symptoms including: dyspnea; agitation; pain; encephalopathy b. To assist medical decision maker(s) with: better understanding of current medical conditions; weighing benefits/burdens of medical treatment options; making medical treatment decisions. . Subjective/Interval History INTERVAL NOTE Mr. Lemus remains sedated, minimally responsive, intubated, mechanically ventilated in the SICU. During "sedation vacation" earlier today, his nurse reports that he opens his eyes but does not track and is not following commands. Fentanyl drip is at 50 mcg/hr. He remains on propofol. CVVHD is underway at time of my visit. Pressors are being down-titrated slowly. No evidence of pain per nursing notes. Tmax 98.5. BPs 101-124/54-64; HR 108-114; 02 sats 94 on 45% FI0s. Urine output 250 cc. Bowels are moving. WBC 16; Hg 10.6; Plt 39 BUN 61; Creat 5.43 Lactic acid 1.8 Ca corrected 6.4 Alb 1.6 No new CXR Renal function continues to decline. Dialysis access was placed last night and patient is awaiting dialysis now. Pt remains on two pressor agents; systolic BPs now above 100. He has not appeared painful. Family is at bedside. Dr. Lopez was consulted to see if the hernia noted on CT scan might be playing role in this process. Dr. Lopez felt the hernia was easily reducible and therefore not an issue. Tmax 99.3. BP 100-118/ 54-60; RR 24; Pulse ox 95% on 45% FI02. Urine output 210. Bowels moving. WBC 13.4; Hg 11.0; Plt 62 BUN 59; creat 6.17; GFR 9; Ca corrected 6.3 Alb 1.7 Blood cx --> Group A Beta Strep . Family/friend interactions and daughter are at bedside. They clearly understand how ill the patient is. They express their thanks for all that is being done. Dr. Hicks has explained what to expect over the next days. They continue to want aggressive care to see if patient can get through this. Pt's is getting home in the evenings and has good support from all three daughters. Questions answered to the best of my ability. . Advance Directives Living Will: Completed, but not made available Health Care Surrogate: Completed, but not made available Durable Power of Kindergarten Aide: Never completed Advance Directive Specifics Date completed: will bring in the advance directive. Date of completion is unknown at this time. . Health Care Surrogate(s): will bring in a copy of the advance directive. She reports that she is listed as the designated health care surrogate. . Documented care wishes: will bring in a copy of the advance directive. At this point we do not have any written documentation of the patient's health care goals/preferences. . Objective Vital Signs Date Time Temp Pulse Resp B/P Pulse Ox O2 Delivery O2 Flow Rate FiO2 07/23/16 08:20 94 45 07/23/16 06:00 108 07/23/16 04:46 93 45 07/23/16 04:00 110 07/23/16 04:00 45 07/23/16 04:00 98.5 110 24 118/60 93 07/23/16 02:00 110 07/23/16 00:26 93 45 07/23/16 00:00 45 07/23/16 00:00 114 07/23/16 00:00 97.0 114 24 112/60 92 07/22/16 22:00 106 07/22/16 20:55 94 45 07/22/16 20:00 45 07/22/16 20:00 96.8 112 24 124/62 94 07/22/16 20:00 112 07/22/16 18:00 106 07/22/16 16:30 95 45 07/22/16 16:00 45 07/22/16 16:00 97.3 105 24 112/57 96 07/22/16 16:00 105 07/22/16 14:00 101 07/22/16 12:00 98.1 103 24 105/54 95 07/22/16 12:00 103 07/22/16 12:00 45 Intake & Output 07/23/16 07/23/16 07:00 19:00 Intake Total 3582 ml Output Total 150 ml 0 ml Balance 3432 ml 0 ml Intake IV Total 3390 ml Tube Feeding 192 ml Output Urine Total 150 ml Tube Feeding Residual Discard 0 ml # Bowel Movements 2 Physical Exam CONSTITUTIONAL/GENERAL: This is an overweight male intubated/mechanically ventilated/sedated in a surgical intensive care unit bed. He does not awaken to voice or examination. No obvious distress. TUBES/LINES/DRAINS: Orotracheal tube; orogastric tube; left internal jugular central line; vas-cath right internal jugular; peripheral IV; SCDs; Connelly catheter SKIN: No jaundice, rashes, or lesions. No wounds seen anteriorly. Skin temperature warm but not diaphoretic. EYES: Pupils equal and round. Unable to assess extraocular motions. No scleral icterus. No injection or drainage. Fundi not examined. ENT: Unable to assess hearing. Nose without bleeding or purulent drainage. NECK: Trachea midline. CARDIOVASCULAR: Tachycardic; REgular hythm without murmurs, gallops, or rubs. No JVD. Cannot palpate foot pulses. RESPIRATORY/CHEST: Symmetric, unlabored respirations. Clear to auscultation. Breath sounds equal bilaterally but air movement diminished at bases. No wheezes , rales, or rhonchi. GASTROINTESTINAL: Abdomen soft, non-tender, nondistended. No hepato-splenomegaly , or palpable masses. GENITOURINARY: Without palpable bladder distension. Connelly catheter in place. MUSCULOSKELETAL: Extremities without clubbing, cyanosis, or edema. No joint tenderness or effusion noted. No calf tenderness. No mottling. NEUROLOGICAL: Sedateddoes not stir to voice or examination. No spontaneous movements. Withdraws to noxious stimulus. PSYCHIATRIC: Unable to assess due to sedation.. . Diagnostic Tests Laboratory Laboratory Tests Test 07/20/16 07/20/16 07/20/16 07/20/16 12:10 13:50 14:00 15:00 Lactic Acid Level 5.8 mmol/L (0.4-2.0) Nasal Screen MRSA (PCR) MRSA NOT DETECTED (NOT DETECT) Urine Color YELLOW (YELLW/STRAW) Urine Turbidity CLOUDY (CLEAR) Urine pH 5.5 (5.0-8.5) Urine Specific [place] 1.022 (1.002-1.035) Urine Protein 300 mg/dL (NEG-TRACE) Urine Glucose (UA) TRACE mg/dL (NEG) Urine Ketones NEG mg/dL (NEG) Urine Occult Blood LARGE (NEG) Urine Nitrite NEG (NEG) Urine Bilirubin NEG (NEG) Urine Urobilinogen LESS THAN 2.0 MG/DL (LESS THAN 2.0) Urine Leukocyte Esterase MOD (NEG) Urine RBC 6 /hpf (0-3) Urine WBC 54 /hpf (0-5) Urine WBC Clumps MOD (NONE) Urine Squamous Epithelial 3 /hpf (0-5) Cells Urine Uric Acid Crystals FEW /hpf (NONE) Urine Amorphous Sediment RARE Urine Bacteria FEW /hpf (NONE) Urine Mucus FEW /lpf (OCC) Microscopic Urinalysis Comment CATH-CULTURE IND Blood Gas Puncture Site RENAE Blood Gas Patient Temperature 98.6 Blood Gas HCO3 14 mmol/L (22-26) Blood Gas Base Excess -13.9 mmol/L (-2-2) Blood Gas Oxygen Saturation 96 % (90-100) Arterial Blood pH 7.09 (7.380-7.420) Arterial Blood Partial 49 mmHg (38-42) Pressure CO2 Arterial Blood Partial 358 mmHg Pressure O2 (61-120) Arterial Blood Oxygen Content 17.2 Vol % (12.0-20.0) Arterial Blood 0.3 % (0-4) Carboxyhemoglobin Arterial Blood Methemoglobin 2.1 % (0-2) Blood Gas Hemoglobin 12.1 G/DL (12.0-16.0) Oxygen Delivery Device VENT Blood Gas Ventilator Setting [facility]/16/525/8/1.2IT Blood Gas Inspired Oxygen 100 % Test 07/20/16 07/20/16 07/21/16 07/21/16 18:47 20:27 01:20 06:08 Blood Gas Puncture Site RT BRACHIAL Blood Gas Patient Temperature 98.6 Blood Gas HCO3 15 mmol/L (22-26) Blood Gas Base Excess -10.7 mmol/L (-2-2) Blood Gas Oxygen Saturation 94 % (90-100) Arterial Blood pH 7.29 (7.380-7.420) Arterial Blood Partial 31 mmHg (38-42) Pressure CO2 Arterial Blood Partial 100 mmHg Pressure O2 (61-120) Arterial Blood Oxygen Content 15.7 Vol % (12.0-20.0) Arterial Blood 0.8 % (0-4) Carboxyhemoglobin Arterial Blood Methemoglobin 2.5 % (0-2) Blood Gas Hemoglobin 11.8 G/DL (12.0-16.0) Oxygen Delivery Device VENTILATOR Blood Gas Ventilator Setting PRVC/AC Blood Gas Inspired Oxygen 50 % Lactic Acid Level 6.0 mmol/L 5.7 mmol/L 6.3 mmol/L (0.4-2.0) (0.4-2.0) (0.4-2.0) Troponin I 0.26 NG/ML (0.02-0.05) White Blood Count 11.0 TH/MM3 (4.0-11.0) Red Blood Count 3.60 MIL/MM3 (4.50-5.90) Hemoglobin 11.1 GM/DL (13.0-17.0) Hematocrit 32.7 % (39.0-51.0) Mean Corpuscular Volume 91.0 FL (80.0-100.0) Mean Corpuscular Hemoglobin 30.9 PG (27.0-34.0) Mean Corpuscular Hemoglobin 33.9 % Concent (32.0-36.0) Red Cell Distribution Width 13.8 % (11.6-17.2) Platelet Count 124 TH/MM3 (150-450) Mean Platelet Volume 9.8 FL (7.0-11.0) Neutrophils (%) (Auto) 93.6 % (16.0-70.0) Lymphocytes (%) (Auto) 3.0 % (9.0-44.0) Monocytes (%) (Auto) 2.5 % (0.0-8.0) Eosinophils (%) (Auto) 0.6 % (0.0-4.0) Basophils (%) (Auto) 0.3 % (0.0-2.0) Neutrophils # (Auto) 10.3 TH/MM3 (1.8-7.7) Lymphocytes # (Auto) 0.3 TH/MM3 (1.0-4.8) Monocytes # (Auto) 0.3 TH/MM3 (0-0.9) Eosinophils # (Auto) 0.1 TH/MM3 (0-0.4) Basophils # (Auto) 0.0 TH/MM3 (0-0.2) CBC Comment AUTO DIFF Differential Total Cells 100 Counted Neutrophils % (Manual) 55 % (16-70) Band Neutrophils % 29 % (0-6) Lymphocytes % 3 % (9-44) Monocytes % 5 % (0-8) Neutrophils # (Manual) 10.1 TH/MM3 (1.8-7.7) Metamyelocytes 7 % (0-1) Myelocytes 1 % (0-0) Differential Comment FINAL DIFF MANUAL Toxic Granulation 1+ (NORMAL) Toxic Vacuolation PRESENT (NONE SEEN) Dohle Bodies PRESENT (NONE SEEN) Platelet Estimate LOW (NORMAL) Platelet Morphology Comment NORMAL (NORMAL) Prothrombin Time 20.6 SEC (9.8-11.6) Prothromb Time International 1.8 RATIO Ratio Activated Partial 49.0 SEC Thromboplast Time (24.3-30.1) Sodium Level 135 MEQ/L (136-145) Potassium Level 3.5 MEQ/L (3.5-5.1) Chloride Level 100 MEQ/L (98-107) Carbon Dioxide Level 19.7 MEQ/L (21.0-32.0) Anion Gap 15 MEQ/L (5-15) Blood Urea Nitrogen 47 MG/DL (7-18) Creatinine 4.80 MG/DL (0.60-1.30) Estimat Glomerular Filtration 12 ML/MIN (>89) Rate Random Glucose 275 MG/DL (74-106) Calcium Level 5.7 MG/DL (8.5-10.1) Protein Corrected Calcium 6.6 MG/DL (8.5-10.1) Phosphorus Level 7.6 MG/DL (2.5-4.9) Magnesium Level 1.2 MG/DL (1.5-2.5) Total Bilirubin 0.6 MG/DL (0.2-1.0) Aspartate Amino Transf 58 U/L (15-37) (AST/SGOT) Alanine Aminotransferase 36 U/L (12-78) (ALT/SGPT) Alkaline Phosphatase 32 U/L (45-117) Total Protein 5.0 GM/DL (6.4-8.2) Albumin 2.0 GM/DL (3.4-5.0) Test 07/21/16 07/21/16 07/21/16 07/21/16 11:30 14:40 16:29 18:21 Urine Eosinophils NONE SEEN /HPF (NONE SEEN) Urine Osmolality 324 MOSM/KG (300-1300) Urine Random Creatinine 113.5 MG/DL Urine Random Sodium 62 MEQ/L Stool C. difficile Toxin (PCR) NEGATIVE (NEGATIVE) Stl C. difficile Toxin PRESUMPTIVE Epiderm 027 NEGATIVE (NEGATIVE) Total Creatine Kinase 2214 U/L (39-308) Creatine Kinase MB 26.6 NG/ML (0.5-3.6) Creatine Kinase MB % 1.2 % (0.0-4.0) Troponin I 0.28 NG/ML (0.02-0.05) Blood Gas Puncture Site RT RADIAL ART LINE Blood Gas Patient Temperature 98.6 98.6 Blood Gas HCO3 17 mmol/L 16 mmol/L (22-26) (22-26) Blood Gas Base Excess -9.9 mmol/L -9.6 mmol/L (-2-2) (-2-2) Blood Gas Oxygen Saturation 81 % (90-100) 93 % (90-100) Arterial Blood pH 7.18 7.27 (7.380-7.420) (7.380-7.420) Arterial Blood Partial 48 mmHg (38-42) 36 mmHg (38-42) Pressure CO2 Arterial Blood Partial 56 mmHg 89 mmHg Pressure O2 (61-120) (61-120) Arterial Blood Oxygen Content 12.9 Vol % 14.6 Vol % (12.0-20.0) (12.0-20.0) Arterial Blood 0.7 % (0-4) 0.9 % (0-4) Carboxyhemoglobin Arterial Blood Methemoglobin 1.7 % (0-2) 1.8 % (0-2) Blood Gas Hemoglobin 11.3 G/DL 11.0 G/DL (12.0-16.0) (12.0-16.0) Oxygen Delivery Device VENTILATOR VENTILATOR Blood Gas Ventilator Setting AC AC 18/800/PEEP8 24/550/PEEP8 Blood Gas Inspired Oxygen 50 % 50 % Test 07/22/16 07/22/16 07/22/16 07/22/16 06:00 11:50 13:10 16:00 White Blood Count 13.4 TH/MM3 (4.0-11.0) Red Blood Count 3.70 MIL/MM3 (4.50-5.90) Hemoglobin 11.0 GM/DL (13.0-17.0) Hematocrit 33.2 % (39.0-51.0) Mean Corpuscular Volume 89.9 FL (80.0-100.0) Mean Corpuscular Hemoglobin 29.7 PG (27.0-34.0) Mean Corpuscular Hemoglobin 33.1 % Concent (32.0-36.0) Red Cell Distribution Width 13.4 % (11.6-17.2) Platelet Count 62 TH/MM3 (150-450) Mean Platelet Volume 9.7 FL (7.0-11.0) Neutrophils (%) (Auto) 96.7 % (16.0-70.0) Lymphocytes (%) (Auto) 1.5 % (9.0-44.0) Monocytes (%) (Auto) 1.5 % (0.0-8.0) Eosinophils (%) (Auto) 0.1 % (0.0-4.0) Basophils (%) (Auto) 0.2 % (0.0-2.0) Neutrophils # (Auto) 13.0 TH/MM3 (1.8-7.7) Lymphocytes # (Auto) 0.2 TH/MM3 (1.0-4.8) Monocytes # (Auto) 0.2 TH/MM3 (0-0.9) Eosinophils # (Auto) 0.0 TH/MM3 (0-0.4) Basophils # (Auto) 0.0 TH/MM3 (0-0.2) CBC Comment AUTO DIFF Differential Total Cells 100 Counted Neutrophils % (Manual) 58 % (16-70) Band Neutrophils % 35 % (0-6) Lymphocytes % 3 % (9-44) Monocytes % 3 % (0-8) Eosinophils % 1 % (0-4) Neutrophils # (Manual) 12.5 TH/MM3 (1.8-7.7) Differential Comment FINAL DIFF MANUAL Toxic Granulation 1+ (NORMAL) Toxic Vacuolation PRESENT (NONE SEEN) Platelet Estimate LOW (NORMAL) Platelet Morphology Comment NORMAL (NORMAL) Sodium Level 135 MEQ/L (136-145) Potassium Level 3.1 MEQ/L (3.5-5.1) Chloride Level 96 MEQ/L (98-107) Carbon Dioxide Level 15.8 MEQ/L (21.0-32.0) Anion Gap 23 MEQ/L (5-15) Blood Urea Nitrogen 59 MG/DL (7-18) Creatinine 6.17 MG/DL (0.60-1.30) Estimat Glomerular Filtration 9 ML/MIN (>89) Rate Random Glucose 140 MG/DL (74-106) Calcium Level 5.4 MG/DL (8.5-10.1) Protein Corrected Calcium 6.3 MG/DL (8.5-10.1) Phosphorus Level 8.3 MG/DL (2.5-4.9) Magnesium Level 1.6 MG/DL (1.5-2.5) Total Bilirubin 0.8 MG/DL (0.2-1.0) Aspartate Amino Transf 69 U/L (15-37) (AST/SGOT) Alanine Aminotransferase 46 U/L (12-78) (ALT/SGPT) Alkaline Phosphatase 46 U/L (45-117) Total Protein 5.0 GM/DL (6.4-8.2) Albumin 1.7 GM/DL (3.4-5.0) Random Vancomycin Level 15.4 COMMENT Activated Partial 60.6 SEC GREATER THAN Thromboplast Time (24.3-30.1) 153.4 SEC (24.3-30.1) Lactic Acid Level 7.1 mmol/L (0.4-2.0) Test 07/22/16 07/22/16 07/22/16 07/22/16 17:00 17:01 18:00 18:01 Activated Partial 86.2 SEC 119.6 SEC 68.4 SEC 73.5 SEC Thromboplast Time (24.3-30.1) (24.3-30.1) (24.3-30.1) (24.3-30.1) Test 07/22/16 07/22/16 07/22/16 07/22/16 19:00 19:01 21:00 21:02 Activated Partial 63.2 SEC SEC 64.1 SEC Thromboplast Time (24.3-30.1) (24.3-30.1) (24.3-30.1) Prothrombin Time 34.3 SEC (9.8-11.6) Prothromb Time International 3.0 RATIO Ratio Fibrinogen 702 mg/dL (181-393) Lactic Acid Level 3.5 mmol/L (0.4-2.0) Blood Gas Puncture Site RENAE Blood Gas Patient Temperature 98.6 Blood Gas HCO3 18 mmol/L (22-26) Blood Gas Base Excess -5.5 mmol/L (-2-2) Blood Gas Oxygen Saturation 92 % (90-100) Arterial Blood pH 7.42 (7.380-7.420) Arterial Blood Partial 28 mmHg (38-42) Pressure CO2 Arterial Blood Partial 77 mmHg Pressure O2 (61-120) Arterial Blood Oxygen Content 14.6 Vol % (12.0-20.0) Arterial Blood 0.9 % (0-4) Carboxyhemoglobin Arterial Blood Methemoglobin 1.5 % (0-2) Blood Gas Hemoglobin 11.3 G/DL (12.0-16.0) Oxygen Delivery Device VENTILATOR Blood Gas Ventilator Setting AC/24/550/PEEP8 Blood Gas Inspired Oxygen 45 % Test 07/22/16 07/23/16 07/23/16 07/23/16 23:00 03:00 03:05 06:45 Activated Partial 64.8 SEC 68.9 SEC 68.2 SEC 70.9 SEC Thromboplast Time (24.3-30.1) (24.3-30.1) (24.3-30.1) (24.3-30.1) White Blood Count 16.0 TH/MM3 (4.0-11.0) Red Blood Count 3.61 MIL/MM3 (4.50-5.90) Hemoglobin 10.6 GM/DL (13.0-17.0) Hematocrit 32.2 % (39.0-51.0) Mean Corpuscular Volume 89.3 FL (80.0-100.0) Mean Corpuscular Hemoglobin 29.5 PG (27.0-34.0) Mean Corpuscular Hemoglobin 33.0 % Concent (32.0-36.0) Red Cell Distribution Width 13.6 % (11.6-17.2) Platelet Count 39 TH/MM3 (150-450) Mean Platelet Volume 10.6 FL (7.0-11.0) Neutrophils (%) (Auto) 96.3 % (16.0-70.0) Lymphocytes (%) (Auto) 1.1 % (9.0-44.0) Monocytes (%) (Auto) 2.1 % (0.0-8.0) Eosinophils (%) (Auto) 0.1 % (0.0-4.0) Basophils (%) (Auto) 0.4 % (0.0-2.0) Neutrophils # (Auto) 15.4 TH/MM3 (1.8-7.7) Lymphocytes # (Auto) 0.2 TH/MM3 (1.0-4.8) Monocytes # (Auto) 0.3 TH/MM3 (0-0.9) Eosinophils # (Auto) 0.0 TH/MM3 (0-0.4) Basophils # (Auto) 0.1 TH/MM3 (0-0.2) CBC Comment AUTO DIFF Differential Total Cells 100 Counted Neutrophils % (Manual) 86 % (16-70) Band Neutrophils % 13 % (0-6) Lymphocytes % 1 % (9-44) Neutrophils # (Manual) 15.8 TH/MM3 (1.8-7.7) Differential Comment FINAL DIFF MANUAL Platelet Estimate LOW (NORMAL) Platelet Morphology Comment NORMAL (NORMAL) Sodium Level 138 MEQ/L (136-145) Potassium Level 2.8 MEQ/L (3.5-5.1) Chloride Level 103 MEQ/L (98-107) Carbon Dioxide Level 16.8 MEQ/L (21.0-32.0) Anion Gap 18 MEQ/L (5-15) Blood Urea Nitrogen 61 MG/DL (7-18) Creatinine 5.43 MG/DL (0.60-1.30) Estimat Glomerular Filtration 10 ML/MIN (>89) Rate Random Glucose 155 MG/DL (74-106) Lactic Acid Level 1.8 mmol/L (0.4-2.0) Calcium Level 5.7 MG/DL (8.5-10.1) Protein Corrected Calcium 6.4 MG/DL (8.5-10.1) Total Bilirubin 0.9 MG/DL (0.2-1.0) Aspartate Amino Transf 46 U/L (15-37) (AST/SGOT) Alanine Aminotransferase 42 U/L (12-78) (ALT/SGPT) Alkaline Phosphatase 70 U/L (45-117) Total Creatine Kinase 939 U/L (39-308) Creatine Kinase MB 28.7 NG/ML (0.5-3.6) Creatine Kinase MB % 3.1 % (0.0-4.0) Total Protein 5.4 GM/DL (6.4-8.2) Albumin 1.6 GM/DL (3.4-5.0) Random Vancomycin Level 26.3 COMMENT . Result Diagram: 07/23/1645 07/23/1645 Microbiology Microbiology Date/Time Procedure Status Source Growth 07/20/16 14:00 Urine Culture - Final Complete Urine Catheterized Urine NO GROWTH IN 48 HOURS. 07/21/16 11:30 Rotavirus Antigen - Final Complete Stool Stool NEGATIVE - ROTAVIRUS ANTIGEN IS ABSEN... 07/21/16 11:30 - Final Complete Stool Stool NO ENTERIC PATHOGENS DETECTED BY PCR... 07/21/16 11:30 Cryptosporidium Exam Resulted Stool Stool Pending 07/21/16 11:30 Stool Pus (SAVAGE) - Final Resulted Stool Stool MODERATE WBC'S 07/21/16 11:30 Giardia Antigen (SAVAGE) Resulted Stool Stool Pending 07/21/16 11:30 Legionella Antigen - Final Complete Urine Catheterized Urine PRESUMPTIVE NEGATIVE FOR LEGIONELLA P... 07/21/16 11:30 Streptococcus pneumoniae Antigen (M - Final Complete Urine Catheterized Urine PRESUMPTIVE NEGATIVE FOR STREPTOCOCCU... 07/21/16 14:30 Aerobic Blood Culture - Preliminary Resulted Blood Peripheral NO GROWTH IN 2 DAYS 07/21/16 14:30 Anaerobic Blood Culture - Preliminary Resulted Blood Peripheral NO GROWTH IN 2 DAYS 07/21/16 14:45 Aerobic Blood Culture - Preliminary Resulted Blood Peripheral NO GROWTH IN 2 DAYS 07/21/16 14:45 Anaerobic Blood Culture - Preliminary Resulted Blood Peripheral NO GROWTH IN 2 DAYS 07/21/16 18:25 Gram Stain - Final Complete Sputum Endotracheal 07/21/16 18:25 Sputum Culture - Final Complete Sputum Endotracheal NO GROWTH IN 48 HOURS. 07/22/16 03:57 Aerobic Blood Culture - Preliminary Resulted Blood Peripheral NO GROWTH IN 1 DAY 07/22/16 03:57 Anaerobic Blood Culture - Preliminary Resulted Blood Peripheral NO GROWTH IN 1 DAY . Imaging Last Impressions Chest X-Ray 07/21/16 Signed Impressions: Service Date/Time: Thursday, July 21, 2016 22:13 - CONCLUSION: Satisfactory central line positioning. Worsening aeration. [place] Guillermo MD Renal Ultrasound 07/20/16 Signed Impressions: Service Date/Time: Wednesday, July 20, 2016 14:32 - CONCLUSION: 1. No acute findings. Renal ultrasound unremarkable. Bladder was not well-visualized. Jose Martin Valderrama MD Lower Extremity Ultrasound 07/20/16 Signed Impressions: Service Date/Time: Wednesday, July 20, 2016 14:39 - CONCLUSION: Negative exam with no evidence of deep venous thrombosis. Alonzo Bradshaw MD Head CT 07/20/16 Signed Impressions: Service Date/Time: Wednesday, July 20, 2016 18:21 - CONCLUSION: 1. No acute intracranial abnormalities. Mild mucosal thickening of the ethmoid air cells. Jose Martin Valderrama MD Chest CT 07/20/16 Signed Impressions: Service Date/Time: Wednesday, July 20, 2016 11:28 - CONCLUSION: 1. Chronic scarring in the lung bases left greater than right. 2. No focal consolidation. 3. Bilateral adrenal masses left greater than right most consistent with adenomas. 4. Nonspecific bowel gas pattern noted in the upper abdomen with air-fluid levels in the small bowel. Alonzo Bradshaw MD Abdomen/Pelvis CT 07/20/16 0000 Signed Impressions: Service Date/Time: Wednesday, July 20, 2016 18:24 - CONCLUSION: 1. Lower abdominal ventral midline hernia containing loop of small bowel. Small bowel is mildly distended somewhat diffusely with fluid and air. Cannot exclude a low grade partial bowel obstruction in the area of herniation. 2. No abnormal fluid collections to suggest abscess. No free air or free fluid. 3. Basilar and dependent lung consolidation, left greater than right. Pneumonia could have this appearance. Small left effusion. 4. NG tip in stomach. Inferior vena cava filter present. Connelly catheter in bladder. Jose Martin Valderrama MD . Procedures * Intubation/mechanical ventilation 07/20/16 * Left internal jugular central line placement 07/20/16 * Right jugular vas-cath placement . . Assessment and Plan Disease Oriented Problem List: (1) Severe sepsis with acute organ dysfunction Comment: Blood cx growing out Group A strep . (2) Respiratory failure (3) Lactic acidosis (4) Hypoxia (5) Peripheral vascular disease (6) Hypertension (7) Dyslipidemia (8) Chronic anticoagulation (9) Elevated troponin (10) History of DVT (deep vein thrombosis) (11) Acute kidney injury Comment: No on CRRT. (12) Thrombocytopenia Symptom Scale: (1) Pain 0-10 Scale: Unable to quantify Comment: Patient has chronic pain mostly in the lower extremities from a combination of peripheral vascular disease and diabetic neuropathy. He had been prescribed opiates in the past but normally takes no analgesics because he doesn't like the side effects. Additional sources of discomfort at this time would include prolonged bedbound status; orotracheal/orogastric intubations; Connelly catheter; vascular access lines. . (2) Dyspnea 0-10 Scale: Unable to quantify (dyspnea seems managed with mechanical ventilation.) Comment: Controlled with mechanical ventilation . (3) Encephalopathy 0-10 Scale: Unable to quantify Comment: Encephalopathy is most likely multifactorial and in large part due to the septic shock. Based on the history, it is unlikely that the duration of hypoglycemia or hypotension would've caused any type of permanent damage. There is no prior history of underlying dementia. . Pertinent Non-Medical Issues Psychosocial: Patient is well supported by his spouse and daughter who live locally, many friends who live locally, and 2 daughters who have flown in from [place] and [place]. Spiritual: Patient was raised in a Ep[employer] home. Now identifies himself as a Episc[employer]alian. Temple and spirituality have not played a large part in his life of late. Legal: reports the patient has completed an advanced directive. She will bring a copy into scanned into the medical record. Ethical issues impacting care: Patient is currently incapacitated to make his own health care decisions. It remains uncertain if he will regain capacity to do so. . Important Contacts == Spouse (Alysia Lemus) [phone] == Daughter (Adenkie) [phone] . Prognosis Though Mr Lemus is quite critically ill with septic shock and multiple organs being affected, it is also important to note that in spite of his underlying chronic illnesses , his functional status was reasonably good prior to becoming acutely ill so suddenly. Family, understandably, want to give him a chance to see if he is able to get through this acute period. He had a similar episode of severe illness approximately 10 years ago after being hospitalized with a ruptured appendix. Family has witnessed him being able to recover from that. The rapidity of progression to overwhelming sepsis is a poor prognostic sign. In addition, he will need ample fluids to fight shock and hypotension which can easily lead to congestive failure given his history. . Code Status: Full Code Plan == Code Status : FULL CODE == Decision Making: The patient is currently incapacitated to make his own health care decisions. will bring in the patient's completed advanced directive. She informs me that she is listed as the designated health care surrogate. If there is no advanced directive, would still be asked to serve as proxy decision-maker under the hierarchy of proxy's in the [place] statutes. == Goals of medical treatment: The patient's spouse and 2 of the daughters present want ongoing and full aggressive care for the time being. They are aware how ill the patient is want to see if he is able to turn the corner. As noted above they would want all resuscitation attempts tried at this point in time. On the other hand, family reports that the patient would not want to be maintained on life support if there is not hopeful for meaningful recovery. is even uncertain if patient would ever agree to ongoing hemodialysis. If the patient continues to decline in spite of aggressive care were there is no obvious improvement in spite of aggressive care want to reconsider goals. == Pain: As noted above, patient has a number of different pain syndromes. Currently pain is being controlled with a fentanyl drip. This appears to be working. No further recommendations for pain control at this time. ==Dyspnea: Dyspnea currently being controlled with mechanical ventilation. No further recommendations at this time. == Agitation: Agitation is probably secondary to a multifactorial delirium. Symptoms are currently being controlled with propofol. Hopefully as the patient 's underlying infection is being treated, propofol can be weaned and agitation will be less. No further recommendations at this time. == Encephalopathy: Also likely due to a multifactorial delirium. No evidence at this time to suggest there is been any kind of long lasting adverse effects from either hypoglycemia or hypotension or hypoxia.. No further recommendations at this time. == is bringing in a copy of the patient's advanced directive for us to scan into the electronic medical record. Has not arrived yet. == Case discussed with Dr. Hicks. == Palliative care will continue to follow to assist with symptom management and to further clarify goals of medical treatment as the clinical course evolves. . Attestation To help prompt me to consider important information that might be impacting today's encounter and assessment, information from prior notes written by myself or my colleagues may have been "brought forward" into today's note. My signature on this note, however, is an attestation that I personally performed the exam, history, and/or decision-making noted today, and, unless otherwise indicated, the interactions with patient, family, and staff as well as the review of records all occurred today. I also attest that the listed assessment and stated plan reflect my best clinical judgment today based on the combination of historical information, prior notes, and today's exam/ interactions. When time spent is documented, it refers only to time spent today by the signer, or if indicated, combined time spent today by collaborating physician/nurse practitioner. . Jameson Conklin MD July 23, 2016 11:27
[2016-07-23 11:35] LABS: APTT (PATIENT) 75.9 SEC (24.3-30.1)
[2016-07-23 11:36] LABS: APTT (PATIENT) 73.1 SEC (24.3-30.1)
--- NOTE | 2016-07-23 11:48 | HHI.NPPN ---
Subjective History of Present Illness 71-year-old male with past medical history of diabetes mellitus, hypertension, ischemic heart disease, peripheral neuropathy, chronic kidney disease, history of deep vein thrombosis, hyperlipidemia was brought to the hospital because of generalized weakness, confusion and vomiting and diarrhea. I was called to see the patient because of elevated BUN and creatinine. The patient has history of acute kidney injury in the past and chronic kidney disease. His creatinine was around 1.2 to 1.4, this was in 2012. Additional Remarks Patient is on the vent. and sedation, open eyes on stimuli, clinically same. Review of Systems General General Remarks Intubated and sedated. Objective Data Data 07/22/16 07/23/16 19:00 07:00 Intake Total 2790 ml 3582 ml Output Total 200 ml 150 ml Balance 2590 ml 3432 ml Intake IV Total 2730 ml 3390 ml Tube Feeding 192 ml Other 60 ml Output Urine Total 100 ml 150 ml Gastric Drainage Total 100 ml # Bowel Movements 0 2 Vital Signs Date Time Temp Pulse Resp B/P Pulse Ox O2 Delivery O2 Flow Rate FiO2 07/23/16 08:20 94 45 07/23/16 06:00 108 07/23/16 04:46 93 45 07/23/16 04:00 110 07/23/16 04:00 45 07/23/16 04:00 98.5 110 24 118/60 93 07/23/16 02:00 110 07/23/16 00:26 93 45 07/23/16 00:00 45 07/23/16 00:00 114 07/23/16 00:00 97.0 114 24 112/60 92 07/22/16 22:00 106 07/22/16 20:55 94 45 07/22/16 20:00 45 07/22/16 20:00 96.8 112 24 124/62 94 07/22/16 20:00 112 07/22/16 18:00 106 07/22/16 16:30 95 45 07/22/16 16:00 45 07/22/16 16:00 97.3 105 24 112/57 96 07/22/16 16:00 105 07/22/16 14:00 101 07/22/16 12:00 98.1 103 24 105/54 95 07/22/16 12:00 103 07/22/16 12:00 45 -: 07/23/1645 07/23/1645 Physical Exam General Appearance Remarks Intubated and sedated. Eyes Eye Exam: Pupils Equal Throat Throat Exam: Oral Mucosa [place] & Moist Neck Neck Exam: Neck Supple Pulmonary Resp Exam: Rhonchi, Decreased Bases, Diminished Breath Sounds, Poor Inspiratory Effort Cardiology CV Exam: Regular, Normal Sinus Rhythm Gastrointestinal/Abdomen GI Exam: Soft, Non-Tender, Bowel Sounds Present Extremeties Extremities Exam: Trace Edema Neurologic Neuro Exam: Unresponsive, Sedated Assessment/Plan Assessment Summary: ADALID/Acute Renal Failure Electrolyte Assessment: Metabolic Acidosis Problem List: (1) Diabetes mellitus with neuropathy (2) Leukocytosis (3) Peripheral vascular disease (4) Severe sepsis with acute organ dysfunction (5) History of DVT (deep vein thrombosis) (6) Hypoxia (7) Acidosis (8) Lactic acidosis Plan Patient has low urine out put. BP is still low, on multiple pressors. BC results noted, seen by ID. Now on Unasyn and Clindamycin. To start CRRT, informed the HD RN and orders given. K and calcium low, will replace. Po4 elevated, should improve with HD. CPK also elevated, but improving. K is low, replaced. Continue same CRRT, remove fluid as tolerated. Problem Qualifiers (1) Diabetes mellitus with neuropathy: Qualified Code: E11.40 - Type 2 diabetes mellitus with diabetic neuropathy, unspecified assisted insulin use status (2) Leukocytosis: Qualified Code: D72.829 - Leukocytosis, unspecified type Frank Magana MD July 23, 2016 11:48 Frank Magana MD July 23, 2016 11:48
[2016-07-23] MEDS: VASOPRESSIN 40 U/100 ML D5W Titrate, Post Cardiac Surgery IV SCH ×2 (12:47)
--- NOTE | 2016-07-23 12:48 | HHI.CCPN ---
Subjective Remarks/Hospital Course 71-year-old male. Date of admission 07/20/2016. Past records includes diabetes with neuropathy and nephropathy, hypertension, dyslipidemia, chronic pain syndrome, history of DVT/PE on chronic anticoagulation, peripheral vascular disease with history of AAA, and osteoporosis. Patient recently C [place] 07/06/16. Patient sick contacts would include neighbor with "vital illness. Patient is to [facility] today with acute onset of diarrhea, hypoglycemia and chills. Upon arrival, patient was noted be acutely hypoxic and required a nonrebreather mask. Patient denies pleuritic chest pain , abdominal pain but positive for nausea and diarrhea. CT chest revealed bilateral lower lobe scarring, bilateral adrenal adenomas a nonspecific bowel gas pattern. Chest x-ray revealed no significant findings. Lab work included a lactic acid elevated 7.7, white blood cell count 12,000 in acute kidney injury with a creatinine of 3.0. Baseline around 1.5-2. Troponin was slightly elevated 0.14. EKG is currently pending. Upon arrival to [facility], patient was extremely mottled with rates in the 40s. Patient was emergently intubated please see note and a left IJ central line was placed. CT of the head, abdomen and pelvis currently pending. 07/21 Patient is sedated with Diprivan and Fentanyl and intubated. On Levophed 22 mics, Vasopressin and bicarb drip. BC from 07/20: GPC all 4 bottles. 07/22 Patient remains sedated and intubated On Levophed 22 mics, vasopressin and bicarb drip. Awaiting to start CVVHD today 07/23: Remains sedated, [facility]. On Levophed 15 mics per minute and low-dose vasopressin for pressor support. On CRRT. Objective Vital Signs Date Time Temp Pulse Resp B/P Pulse Ox O2 Delivery O2 Flow Rate FiO2 07/23/16 12:00 103 07/23/16 12:00 45 07/23/16 11:47 94 07/23/16 04:00 98.5 24 118/60 07/20/16 14:00 Mechanical Ventilator 07/20/16 13:04 15 Intake and Output 07/22/16 07/22/16 07/23/16 08:00 16:00 00:00 Intake Total 2562 ml 2790 ml 2094 ml Output Total 125 ml 200 ml 75 ml Balance 2437 ml 2590 ml 2019 ml Result Diagram: 07/23/16 0645 07/23/16 0645 Other Results Laboratory Tests Test 07/22/16 07/22/16 07/22/16 07/22/16 13:10 16:00 17:00 17:01 Lactic Acid Level 7.1 mmol/L Activated Partial GREATER THAN 86.2 SEC 119.6 SEC Thromboplast Time 153.4 SEC Test 07/22/16 07/22/16 07/22/16 07/22/16 18:00 18:01 19:00 19:01 Activated Partial 68.4 SEC 73.5 SEC 63.2 SEC SEC Thromboplast Time Test 07/22/16 07/22/16 07/22/16 07/23/16 21:00 21:02 23:00 03:00 Prothrombin Time 34.3 SEC Prothromb Time International 3.0 RATIO Ratio Activated Partial 64.1 SEC 64.8 SEC 68.9 SEC Thromboplast Time Fibrinogen 702 mg/dL Lactic Acid Level 3.5 mmol/L Blood Gas Puncture Site RENAE Blood Gas Patient Temperature 98.6 Blood Gas HCO3 18 mmol/L Blood Gas Base Excess -5.5 mmol/L Blood Gas Oxygen Saturation 92 % Arterial Blood pH 7.42 Arterial Blood Partial 28 mmHg Pressure CO2 Arterial Blood Partial 77 mmHg Pressure O2 Arterial Blood Oxygen Content 14.6 Vol % Arterial Blood 0.9 % Carboxyhemoglobin Arterial Blood Methemoglobin 1.5 % Blood Gas Hemoglobin 11.3 G/DL Oxygen Delivery Device VENTILATOR Blood Gas Ventilator Setting AC/24/550/PEEP8 Blood Gas Inspired Oxygen 45 % Test 07/23/16 07/23/16 07/23/16 03:05 06:45 10:50 Activated Partial 68.2 SEC 70.9 SEC 73.1 SEC Thromboplast Time White Blood Count 16.0 TH/MM3 Red Blood Count 3.61 MIL/MM3 Hemoglobin 10.6 GM/DL Hematocrit 32.2 % Mean Corpuscular Volume 89.3 FL Mean Corpuscular Hemoglobin 29.5 PG Mean Corpuscular Hemoglobin 33.0 % Concent Red Cell Distribution Width 13.6 % Platelet Count 39 TH/MM3 Mean Platelet Volume 10.6 FL Neutrophils (%) (Auto) 96.3 % Lymphocytes (%) (Auto) 1.1 % Monocytes (%) (Auto) 2.1 % Eosinophils (%) (Auto) 0.1 % Basophils (%) (Auto) 0.4 % Neutrophils # (Auto) 15.4 TH/MM3 Lymphocytes # (Auto) 0.2 TH/MM3 Monocytes # (Auto) 0.3 TH/MM3 Eosinophils # (Auto) 0.0 TH/MM3 Basophils # (Auto) 0.1 TH/MM3 CBC Comment AUTO DIFF Differential Total Cells 100 Counted Neutrophils % (Manual) 86 % Band Neutrophils % 13 % Lymphocytes % 1 % Neutrophils # (Manual) 15.8 TH/MM3 Differential Comment FINAL DIFF MANUAL Platelet Estimate LOW Platelet Morphology Comment NORMAL Sodium Level 138 MEQ/L Potassium Level 2.8 MEQ/L Chloride Level 103 MEQ/L Carbon Dioxide Level 16.8 MEQ/L Anion Gap 18 MEQ/L Blood Urea Nitrogen 61 MG/DL Creatinine 5.43 MG/DL Estimat Glomerular Filtration 10 ML/MIN Rate Random Glucose 155 MG/DL Lactic Acid Level 1.8 mmol/L Calcium Level 5.7 MG/DL Protein Corrected Calcium 6.4 MG/DL Total Bilirubin 0.9 MG/DL Aspartate Amino Transf 46 U/L (AST/SGOT) Alanine Aminotransferase 42 U/L (ALT/SGPT) Alkaline Phosphatase 70 U/L Total Creatine Kinase 939 U/L Creatine Kinase MB 28.7 NG/ML Creatine Kinase MB % 3.1 % Total Protein 5.4 GM/DL Albumin 1.6 GM/DL Random Vancomycin Level 26.3 COMMENT Microbiology Date/Time Procedure Status Source Growth 07/22/16 03:57 Aerobic Blood Culture - Preliminary Resulted Blood Peripheral NO GROWTH IN 1 DAY 07/22/16 03:57 Anaerobic Blood Culture - Preliminary Resulted Blood Peripheral NO GROWTH IN 1 DAY 07/21/16 18:25 Gram Stain - Final Complete Sputum Endotracheal 07/21/16 18:25 Sputum Culture - Final Complete Sputum Endotracheal NO GROWTH IN 48 HOURS. 07/21/16 11:30 Rotavirus Antigen - Final Complete Stool Stool NEGATIVE - ROTAVIRUS ANTIGEN IS ABSEN... 07/21/16 11:30 Legionella Antigen - Final Complete Urine Catheterized Urine PRESUMPTIVE NEGATIVE FOR LEGIONELLA P... 07/21/16 11:30 Streptococcus pneumoniae Antigen (M - Final Complete Urine Catheterized Urine PRESUMPTIVE NEGATIVE FOR STREPTOCOCCU... 07/21/16 11:30 Cryptosporidium Exam Resulted Stool Stool Pending 07/21/16 11:30 Stool Pus (SAVAGE) - Final Resulted Stool Stool MODERATE WBC'S 07/21/16 11:30 Giardia Antigen (SAVAGE) Resulted Stool Stool Pending 07/21/16 11:30 - Final Complete Stool Stool NO ENTERIC PATHOGENS DETECTED BY PCR... 07/20/16 14:00 Urine Culture - Final Complete Urine Catheterized Urine NO GROWTH IN 48 HOURS. 07/20/16 09:30 Aerobic Blood Culture - Final Complete Blood Peripheral Group A Beta Strep 07/20/16 09:30 Anaerobic Blood Culture - Final Complete Group A Beta Strep Imaging Last Impressions Chest X-Ray 07/21/16 0000 Signed Impressions: Service Date/Time: Thursday, July 21, 2016 22:13 - CONCLUSION: Satisfactory central line positioning. Worsening aeration. [place] Guillermo MD Renal Ultrasound 07/20/16 0000 Signed Impressions: Service Date/Time: Wednesday, July 20, 2016 14:32 - CONCLUSION: 1. No acute findings. Renal ultrasound unremarkable. Bladder was not well-visualized. Jose Martin Valderrama MD Lower Extremity Ultrasound 07/20/16 0000 Signed Impressions: Service Date/Time: Wednesday, July 20, 2016 14:39 - CONCLUSION: Negative exam with no evidence of deep venous thrombosis. Alonzo Bradshaw MD Head CT 07/20/16 0000 Signed Impressions: Service Date/Time: Wednesday, July 20, 2016 18:21 - CONCLUSION: 1. No acute intracranial abnormalities. Mild mucosal thickening of the ethmoid air cells. Jose Martin Valderrama MD Chest CT 07/20/16 0000 Signed Impressions: Service Date/Time: Wednesday, July 20, 2016 11:28 - CONCLUSION: 1. Chronic scarring in the lung bases left greater than right. 2. No focal consolidation. 3. Bilateral adrenal masses left greater than right most consistent with adenomas. 4. Nonspecific bowel gas pattern noted in the upper abdomen with air-fluid levels in the small bowel. Alonzo Bradshaw MD Abdomen/Pelvis CT 07/20/16 0000 Signed Impressions: Service Date/Time: Wednesday, July 20, 2016 18:24 - CONCLUSION: 1. Lower abdominal ventral midline hernia containing loop of small bowel. Small bowel is mildly distended somewhat diffusely with fluid and air. Cannot exclude a low grade partial bowel obstruction in the area of herniation. 2. No abnormal fluid collections to suggest abscess. No free air or free fluid. 3. Basilar and dependent lung consolidation, left greater than right. Pneumonia could have this appearance. Small left effusion. 4. NG tip in stomach. Inferior vena cava filter present. Connelly catheter in bladder. Jose Martin Valderrama MD Objective Remarks GENERAL: Patient is 71 yo critically ill intubated and sedated. SKIN: Warm and dry. HEAD: Normocephalic. EYES: Pallor present. No scleral icterus. No injection or drainage. NECK: Supple, trachea midline. No JVD or lymphadenopathy. CARDIOVASCULAR: Regular rate and rhythm without murmurs, gallops, or rubs. RESPIRATORY: Orally intubated on mechanical ventilation, Breath sounds equal bilaterally. Scattered rhonchi, no wheezing. GASTROINTESTINAL: Abdomen soft, non-tender, nondistended. Bowel sounds sluggish Neuro: Sedated, intubated Extremities: Warm bilaterally, Bilateral edema Urinary Catheter: Yes Assessment to: Continue Vascular Central Line Catheter: Yes Assessment to: Continue Line: Central Venous Catheter A/P Assessment and Plan Neuro/Psych: Peripheral neuropathy Chronic pain syndrome Patient is currently on propofol/fentanyl drips for sedation/analgesia while intubated Goal of RA SS -2 Daily sedation vacation when appropriate 07/20 CT brain: No acute intracranial abnormalities. CV: Elevated troponin Hypertension Dyslipidemia Lactic acidosis Peripheral vascular disease History of AAA Continue with pressors( Levo, Vaso) keep MAP>65mmHg Serial lactic acid monitoring On Stress dose steroids- HC 50mg IV Q8 Monitor CK/trop, Continue with ASA daily Echo showed EF 35-40% Resp: Acute hypoxemic respiratory failure Tobaccoism Continue with vent support keep sat >92% Ventilator bundle Bronchodilator therapy every 4 hours with albuterol every 2 hours. Hold off on spontaneous breathing trials in the of high pressor requirement and significant metabolic acidosis. CT chest 07/20 revealed left greater than right basilar scarring. Bilateral adrenal adenomas. No focal consolidation GI: Continue tube feeds- Nepro with goal rate 40ml/hr Protonix for GI prophylaxis Colace/as needed Senokot for bowel regimen CT abdomen reviewed. Gen surgery- Dr Roman- no surgical interventions. : Strict intake output, monitor and replete electrolytes, follow BUN/creatinine. Started CRRT on 07/22, being followed by nephrology Dr. 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 Worsening platelet count noted, probably secondary to sepsis. We'll send HIT screen ID: Continue with abx per ID (Unasyn, Clindamycin, vanco x 1 dose) monitor for signs of infections - Pertinent cultures BC 07/20- GPC, Group A Beta strep Urine cx 07/20 : Pending Strep pneumonia nad Legionella urinary Ag negative Follow up on Sputum cx, BC 07/21- NGTD MSK: Osteoarthritis Holding vitamin D 1000 units by mouth daily. Access - Left IJ CVL placed 07/20, Art line placed 07/21 -Right IJ vascath placed 07/22 Prophylaxis - GI - Protonix - DVT - SCD/heparin SQ -Doppler US LE negative for DVT Palliative care is following Patient is critically ill with resp failure, renal failure, septic shock and multiorgan injury. Prognosis guarded. I had a long discussion with patient's and daughter at bedside regarding current clinical condition and plan of care and they voiced understanding and were appreciated. I also explained possible need for tracheostomy and PEG tube in about 2 weeks since getting intubated if aggressive care desired at that time. D/W Dr. Conklin, D/W DIETETICS DIRECTOR, D/w ID Critical Care: The total critical care time was 45 minutes. Time to perform other separately billable procedures was not included in the critical care time. Roman Hicks MD July 23, 2016 12:48
[2016-07-23 13:59] LABS: HEPARIN AB OD 0.167 O.D. (0.000-0.300); HEPARIN INDUCED PLATELET AB NEGATIVE (NEGATIVE)
[2016-07-23 15:04] LABS: APTT (PATIENT) 78.8 SEC (24.3-30.1)
--- NOTE | 2016-07-23 15:33 | HHI.IDPN ---
Subjective Subjective Remarks 71-year-old male admitted to the hospital for acute onset of diarrhea, chills and hypoglycemia. Patient apparently working in the yard July 18 and July 19. He was doing okay except for complaints on his lower extremity which is apparently chronic and related to his peripheral vascular disease. That night, the noted that the patient was breathing hard. She asked the patient and he stated that he is not short of breath. He has not complained of any sore throat, has not been congested, and has eaten without any problem. He has not had any urinary complaints. That night apparently the couldn't sleep, and around 4 :00 in the morning the patient woke up and stated that he wanted to go to the bathroom. Patient didn't make it, and had stool incontinence. He was noted to have some chills, and his blood sugars were low. He also had episode of vomiting. Patient was taken to the hospital, and since admission he is developed profound hypotension, and acidosis. He ended up getting intubated, and currently on Levophed and vasopressin. His white count is elevated, lactic acid elevated, and his creatinine is also quite elevated. His urine output has been low. Cultures done in the emergency room, are now reported as growing group A strep. Notes reviewed D/W RN Sedated on the vent Remains on pressors - levophed and vasopressin, dose lower On CVVHD On bicarb drip No new (+) BC Platelets continue to drop, no bleeding, DIC screen negative UO low Mucoid stools Antibiotics Unasyn Clindamycin Vanco x 1 dose Lines LIJ TLC RIJ vascath Past Medical History Hypertension Diabetes mellitus Ischemic heart disease Hyperlipidemia History of deep venous thrombosis Peripheral vascular disease Chronic kidney disease Arthritis Past Surgical History Bowel surgery Appendectomy Allergies: Coded Allergies: No Known Allergies (Verified , 07/20/16) Objective . Vital Signs Date Time Temp Pulse Resp B/P Pulse Ox O2 Delivery O2 Flow Rate FiO2 07/23/16 14:00 95 07/23/16 12:00 103 07/23/16 12:00 97.7 103 24 113/57 94 07/23/16 12:00 45 07/23/16 11:47 94 45 07/23/16 10:00 107 07/23/16 08:20 94 45 07/23/16 08:00 111 07/23/16 08:00 45 07/23/16 08:00 98.0 111 24 118/60 93 07/23/16 06:00 108 07/23/16 04:46 93 45 07/23/16 04:00 110 07/23/16 04:00 45 07/23/16 04:00 98.5 110 24 118/60 93 07/23/16 02:00 110 07/23/16 00:26 93 45 07/23/16 00:00 45 07/23/16 00:00 114 07/23/16 00:00 97.0 114 24 112/60 92 07/22/16 22:00 106 07/22/16 20:55 94 45 07/22/16 20:00 45 07/22/16 20:00 96.8 112 24 124/62 94 07/22/16 20:00 112 07/22/16 18:00 106 07/22/16 16:30 95 45 07/22/16 16:00 45 07/22/16 16:00 97.3 105 24 112/57 96 07/22/16 16:00 105 07/22/16 07/22/16 07/23/16 15:00 23:00 07:00 Intake Total 2790 ml 2094 ml 1488 ml Output Total 200 ml 75 ml 75 ml Balance 2590 ml 2019 ml 1413 ml Intake IV Total 2730 ml 2094 ml 1296 ml Tube Feeding 192 ml Other 60 ml Output Urine Total 100 ml 75 ml 75 ml Gastric Drainage Total 100 ml # Bowel Movements 0 1 1 . Laboratory Tests Test 07/22/16 07/23/16 06:00 06:45 White Blood Count 13.4 TH/MM3 16.0 TH/MM3 Red Blood Count 3.70 MIL/MM3 3.61 MIL/MM3 Hemoglobin 11.0 GM/DL 10.6 GM/DL Hematocrit 33.2 % 32.2 % Mean Corpuscular Volume 89.9 FL 89.3 FL Mean Corpuscular Hemoglobin 29.7 PG 29.5 PG Mean Corpuscular Hemoglobin 33.1 % 33.0 % Concent Red Cell Distribution Width 13.4 % 13.6 % Platelet Count 62 TH/MM3 39 TH/MM3 Mean Platelet Volume 9.7 FL 10.6 FL Neutrophils (%) (Auto) 96.7 % 96.3 % Lymphocytes (%) (Auto) 1.5 % 1.1 % Monocytes (%) (Auto) 1.5 % 2.1 % Eosinophils (%) (Auto) 0.1 % 0.1 % Basophils (%) (Auto) 0.2 % 0.4 % Neutrophils # (Auto) 13.0 TH/MM3 15.4 TH/MM3 Lymphocytes # (Auto) 0.2 TH/MM3 0.2 TH/MM3 Monocytes # (Auto) 0.2 TH/MM3 0.3 TH/MM3 Eosinophils # (Auto) 0.0 TH/MM3 0.0 TH/MM3 Basophils # (Auto) 0.0 TH/MM3 0.1 TH/MM3 CBC Comment AUTO DIFF AUTO DIFF Differential Total Cells 100 100 Counted Neutrophils % (Manual) 58 % 86 % Band Neutrophils % 35 % 13 % Lymphocytes % 3 % 1 % Monocytes % 3 % Eosinophils % 1 % Neutrophils # (Manual) 12.5 TH/MM3 15.8 TH/MM3 Differential Comment FINAL DIFF FINAL DIFF MANUAL MANUAL Toxic Granulation 1+ Toxic Vacuolation PRESENT Platelet Estimate LOW LOW Platelet Morphology Comment NORMAL NORMAL Laboratory Tests Test 07/22/16 07/22/16 07/22/16 07/23/16 06:00 13:10 21:00 06:45 Sodium Level 135 MEQ/L 138 MEQ/L Potassium Level 3.1 MEQ/L 2.8 MEQ/L Chloride Level 96 MEQ/L 103 MEQ/L Carbon Dioxide Level 15.8 MEQ/L 16.8 MEQ/L Anion Gap 23 MEQ/L 18 MEQ/L Blood Urea Nitrogen 59 MG/DL 61 MG/DL Creatinine 6.17 MG/DL 5.43 MG/DL Estimat Glomerular Filtration 9 ML/MIN 10 ML/MIN Rate Random Glucose 140 MG/DL 155 MG/DL Calcium Level 5.4 MG/DL 5.7 MG/DL Protein Corrected Calcium 6.3 MG/DL 6.4 MG/DL Phosphorus Level 8.3 MG/DL Magnesium Level 1.6 MG/DL Total Bilirubin 0.8 MG/DL 0.9 MG/DL Aspartate Amino Transf 69 U/L 46 U/L (AST/SGOT) Alanine Aminotransferase 46 U/L 42 U/L (ALT/SGPT) Alkaline Phosphatase 46 U/L 70 U/L Total Protein 5.0 GM/DL 5.4 GM/DL Albumin 1.7 GM/DL 1.6 GM/DL Lactic Acid Level 7.1 mmol/L 3.5 mmol/L 1.8 mmol/L Total Creatine Kinase 939 U/L Creatine Kinase MB 28.7 NG/ML Creatine Kinase MB % 3.1 % Microbiology Date/Time Procedure Status Source Growth 07/21/16 11:30 Rotavirus Antigen - Final Complete Stool Stool NEGATIVE - ROTAVIRUS ANTIGEN IS ABSEN... 07/21/16 11:30 - Final Complete Stool Stool NO ENTERIC PATHOGENS DETECTED BY PCR... 07/21/16 11:30 Cryptosporidium Exam Resulted Stool Stool Pending 07/21/16 11:30 Stool Pus ([facility]) - Final Resulted Stool Stool MODERATE WBC'S 07/21/16 11:30 Giardia Antigen ([facility]) Resulted Stool Stool Pending 07/21/16 11:30 Legionella Antigen - Final Complete Urine Catheterized Urine PRESUMPTIVE NEGATIVE FOR LEGIONELLA P... 07/21/16 11:30 Streptococcus pneumoniae Antigen (M - Final Complete Urine Catheterized Urine PRESUMPTIVE NEGATIVE FOR STREPTOCOCCU... 07/21/16 14:30 Aerobic Blood Culture - Preliminary Resulted Blood Peripheral NO GROWTH IN 2 DAYS 07/21/16 14:30 Anaerobic Blood Culture - Preliminary Resulted Blood Peripheral NO GROWTH IN 2 DAYS 07/21/16 14:45 Aerobic Blood Culture - Preliminary Resulted Blood Peripheral NO GROWTH IN 2 DAYS 07/21/16 14:45 Anaerobic Blood Culture - Preliminary Resulted Blood Peripheral NO GROWTH IN 2 DAYS 07/21/16 18:25 Gram Stain - Final Complete Sputum Endotracheal 07/21/16 18:25 Sputum Culture - Final Complete Sputum Endotracheal NO GROWTH IN 48 HOURS. 07/22/16 03:57 Aerobic Blood Culture - Preliminary Resulted Blood Peripheral NO GROWTH IN 1 DAY 07/22/16 03:57 Anaerobic Blood Culture - Preliminary Resulted Blood Peripheral NO GROWTH IN 1 DAY Imaging Chest X-Ray 07/21/16 0000 Signed Impressions: Service Date/Time: Thursday, July 21, 2016 22:13 - CONCLUSION: Satisfactory central line positioning. Worsening aeration. [place] Guillermo MD Renal Ultrasound 07/20/16 0000 Signed Impressions: Service Date/Time: Wednesday, July 20, 2016 14:32 - CONCLUSION: 1. No acute findings. Renal ultrasound unremarkable. Bladder was not well-visualized. Jose Martin Valderrama MD Lower Extremity Ultrasound 07/20/16 0000 Signed Impressions: Service Date/Time: Wednesday, July 20, 2016 14:39 - CONCLUSION: Negative exam with no evidence of deep venous thrombosis. Alonzo Bradshaw MD Head CT 07/20/16 Signed Impressions: Service Date/Time: Wednesday, July 20, 2016 18:21 - CONCLUSION: 1. No acute intracranial abnormalities. Mild mucosal thickening of the ethmoid air cells. Jose Martin Valderrama MD Chest CT 07/20/16 Signed Impressions: Service Date/Time: Wednesday, July 20, 2016 11:28 - CONCLUSION: 1. Chronic scarring in the lung bases left greater than right. 2. No focal consolidation. 3. Bilateral adrenal masses left greater than right most consistent with adenomas. 4. Nonspecific bowel gas pattern noted in the upper abdomen with air-fluid levels in the small bowel. Alonzo Bradshaw MD Abdomen/Pelvis CT 07/20/16 Signed Impressions: Service Date/Time: Wednesday, July 20, 2016 18:24 - CONCLUSION: 1. Lower abdominal ventral midline hernia containing loop of small bowel. Small bowel is mildly distended somewhat diffusely with fluid and air. Cannot exclude a low grade partial bowel obstruction in the area of herniation. 2. No abnormal fluid collections to suggest abscess. No free air or free fluid. 3. Basilar and dependent lung consolidation, left greater than right. Pneumonia could have this appearance. Small left effusion. 4. NG tip in stomach. Inferior vena cava filter present. Connelly catheter in bladder. Jose Martin Valderrama MD Physical Exam GENERAL: sedated and intubated, NAD SKIN: Cool and dry. No generalized rash, no ecchymosis. HEAD: Atraumatic. Normocephalic. No temporal or scalp tenderness. EYES: [place] conjunctivae, no petechia or hemorrhage. Pupils equal round and reactive. Less scleral edema. No scleral icterus. No injection or drainage. ENT: Nose without bleeding, or purulent drainage. Endotracheal tube is in the mouth, has moist mucosa. NECK: Trachea midline. No JVD or lymphadenopathy. Supple, nontender, no meningeal signs. CARDIOVASCULAR: Regular rate and rhythm without murmurs, gallops, or rubs. Tachycardic RESPIRATORY: Breath sounds equal bilaterally. Has scattered rales. Decreased breath sounds at the bases. GASTROINTESTINAL: Abdomen soft, globular, bowel sounds are present and normoactive. Mildly distended, no reaction to palpation. No hepato- splenomegaly, or palpable masses. MUSCULOSKELETAL: Extremities without clubbing, cyanosis, or edema. . Feet warm. No joint effusion, or edema noted. NEUROLOGICAL: Sedated on the vent PSYCH: Unable to assess LINE: LIJ and RIJ lines with no evidence of infection : Connelly in place, urine looks clear Assessment & Plan Remarks IMPRESSION Group A Strep sepsis, with shock, MOSF, present on admission, source? - ?primary bacteremia Respiratory failure Renal failure Thrombocytopenia due to sepsis, no DIC Known DM, HTN, PVD, CAD RECOMMENDATION Follow C/S Continue IV Unasyn Continue Clindamycin - could help in severe sepsis in GAS infection - If same, will D/C tomorrow No need for any further IV vancomycin BP support Renal following for ADALID Monitor progress Remains critically ill Spoke with daughter and D/W Ceci Caicedo MD July 23, 2016 15:33
[2016-07-23] MEDS: NOREPINEPHRINE INJ 8 MG in SODIUM CHLORID 0.9% 500 ML INJ 492 ML IV SCH (15:36)
[2016-07-23] MEDS ORDERED: SODIUM BICARBONATE 8.4% INJ 50 MEQ/50 ML SYR ONE (15:46)
[2016-07-23] MEDS ORDERED: SODIUM BICARBONATE 8.4% INJ 50 MEQ/50 ML SYR IV ONE (16:15)
[2016-07-23 16:33] LABS: BLOOD GAS BASE EXCESS -11.2 mmol/L (-2-2); BLOOD GAS CARBOXYHEMOGLOBIN 0.8 % (0-4); BLOOD GAS HCO3 14 mmol/L (22-26); BLOOD GAS METHEMOGLOBIN 1.5 % (0-2); BLOOD GAS O2 HGB SATURATION 91 % (90-100); BLOOD GAS OXYGEN CONTENT 13.6 Vol % (12.0-20.0); BLOOD GAS PCO2 28 mmHg (38-42); BLOOD GAS PO2 80 mmHg (61-120); BLOOD GAS TOTAL HGB 10.6 G/DL (12.0-16.0); CRITICAL VALUE YES; OXYGEN DEVICE VENTILATOR; TEMP CORR TO 98.6
[2016-07-23 16:34] LABS: DRAW SITE ART LINE; FIO2 45 %; STAT NO; ULNAR PULSE PRESENT; VENT SETTINGS AC/24/550/PEEP8
[2016-07-23] MEDS: SODIUM BICARBONATE 8.4% INJ 150 MEQ in WATER STERILE FOR INJ 850 ML IV SCH ×2 (17:47→23:19)
[2016-07-23 19:16] LABS: APTT (PATIENT) 77.6 SEC (24.3-30.1)
[2016-07-23 21:52] LABS: BICARBONATE 16.8 MEQ/L (21.0-32.0)
[2016-07-23 21:55] LABS: POTASSIUM 2.8 MEQ/L (3.5-5.1)
[2016-07-23] MEDS ORDERED: CALCIUM CHLORIDE INJ 2 GM in DEXTROSE 5% IN WATER 100ML INJ 100 ML IV ONE ×2 (22:30)
[2016-07-23] MEDS: POTASSIUM CHLOR 40 MEQ PREMIX 100 ML IV SCH (22:33)
[2016-07-23 23:54] LABS: APTT (PATIENT) 78.3 SEC (24.3-30.1)
[2016-07-24] VITALS (20 sets, daily range): BP systolic 90–129; BP diastolic 45–59; PULSE 89–112; RESP 20; TEMP 97.4–98.7; O2SAT 90–100
[2016-07-24] MEDS: INSULIN NovoLIN REGULAR SUPPLEMENTAL SCALE SQ SCH ×4 (00:09→18:43)
[2016-07-24] MEDS: RESP: ALBUTEROL 2.5 MG/IPRATROPIUM 0.5 MG NEB (SCH) INH ×4 (00:45→11:17)
[2016-07-24] MEDS: SODIUM CHLOR 0.9% IV SCH ×12 (01:32→23:36)
[2016-07-24] MEDS: CALCIUM GLUCONATE IV SCH ×12 (01:32→23:36)
[2016-07-24] MEDS ORDERED: HEPARIN SODIUM - IV 10,000 UNITS/10 ML VIAL ONE (01:54)
[2016-07-24] MEDS: NOREPINEPHRINE INJ 8 MG in SODIUM CHLORID 0.9% 500 ML INJ 492 ML IV SCH ×2 (02:18→15:35)
[2016-07-24] MEDS: AMPICILLIN-SULBACTAM INJ 1,500 MG in SODIUM CHLORIDE 0.9% INJ 100 ML IV SCH ×3 (02:31→17:23)
[2016-07-24] MEDS: POTASSIUM CHLOR 40 MEQ PREMIX 100 ML IV SCH (02:43)
[2016-07-24] MEDS: PROPOFOL 1000 MG/100 ML INJ 100 ML IV SCH ×4 (02:56→22:16)
[2016-07-24 04:48] LABS: BASOPHIL % 0.3 % (0.0-2.0); HEMATOCRIT 27.5 % (39.0-51.0); LYMPHOCYTE # 0.2 TH/MM3 (1.0-4.8); MEAN CELL VOLUME 89.3 FL (80.0-100.0); MEAN CORPUSCULAR HEMOGLOBIN 30.6 PG (27.0-34.0); MEAN CORPUSCULAR HGB CONC 34.2 % (32.0-36.0); MONO % 2.4 % (0.0-8.0); NEUT % 95.3 % (16.0-70.0); PLATELET COUNT 37 TH/MM3 (150-450); RED BLOOD COUNT 3.08 MIL/MM3 (4.50-5.90); WHITE BLOOD COUNT 11.6 TH/MM3 (4.0-11.0)
[2016-07-24 04:54] LABS: HEMO FLAGS AUTO DIFF
[2016-07-24] MEDS: CHLORHEXIDINE GLUCONATE 2 % 1 PACK (2 CLOTHS) TOP SCH (05:12)
[2016-07-24 05:21] LABS: BICARBONATE 16.1 MEQ/L (21.0-32.0); CALCIUM-PROTEIN CORRECTED 7.9 MG/DL (8.5-10.1); POTASSIUM 3.2 MEQ/L (3.5-5.1); TOTAL BILIRUBIN ADULT 0.7 MG/DL (0.2-1.0)
[2016-07-24] MEDS: HYDROCORTISONE SOD SUCCINATE 100 MG VIAL IV PUSH SCH ×3 (05:26→22:17)
[2016-07-24] MEDS: CLINDAMYCIN INJ 900 MG in SODIUM CHLORIDE 0.9% INJ 100 ML IV SCH ×4 (05:26→23:36)
[2016-07-24 06:06] LABS: BANDS 13 % (0-6); DOHLE BODIES PRESENT (NONE SEEN); METAMYELOCYTES 1 % (0-1); MYELOCYTES 1 % (0-0); NEUTROPHIL # MANUAL DIFF 10.9 TH/MM3 (1.8-7.7); PLATELET ESTIMATE SMEAR LOW (NORMAL); POLYS (SEG NEUTROPHILS) 79 % (16-70); SCAN/DIFF FINAL DIFF MANUAL; WBC DIFF SAMPLE 100
--- NOTE | 2016-07-24 06:06 | RADRPT ---
EXAM DATE/TIME: 07/24/2016 05:36 [facility] COMPARISON: CHEST SINGLE AP, July 21, 2016, 22:13. INDICATIONS : Respiratory failure. MEDICAL HISTORY : Congestive heart failure. Diabetes mellitus type II. SURGICAL HISTORY : None. ENCOUNTER: Subsequent ACUITY: 1 week PAIN SCORE: Non-responsive. LOCATION: Bilateral chest FINDINGS: A single portable frontal view of the chest shows no interval change. Bibasilar infiltrates remain. H eart is at the upper limits of normal in terms of size. Tip of the endotracheal tube 2 cm proximal to the krissy. Right-sided dialysis catheter, left-sided central line, and nasogastric tube. CONCLUSION: Unchanged bibasilar infiltrates. Omer Cheng Jr., MD on July 24, 2016 at 6:04 Board Certified Radiologist. This report was verified electronically.
[2016-07-24 06:07] LABS: PLATELET MORPHOLOGY ENLARGED (NORMAL)
[2016-07-24 06:12] LABS: APTT (PATIENT) 85.7 SEC (24.3-30.1)
[2016-07-24] MEDS: SODIUM BICARBONATE 8.4% INJ 150 MEQ in WATER STERILE FOR INJ 850 ML IV SCH ×3 (07:03→23:37)
[2016-07-24] MEDS: CHLORHEXIDINE 0.12% (ORAL KIT) 15 ML CUP MT SCH ×2 (07:47→21:14)
[2016-07-24] MEDS: VASOPRESSIN 40 U/100 ML D5W Titrate, Post Cardiac Surgery IV SCH ×2 (07:47)
[2016-07-24] MEDS: ASPIRIN 81 MG CHEW TAB CHEW SCH (07:48)
--- NOTE | 2016-07-24 08:54 | RADRPT ---
EXAM DATE/TIME: 07/24/2016 08:28 [facility] COMPARISON: CT ABDOMEN & PELVIS W/O CONTRAST, July 20, 2016, 18:24. INDICATIONS : Distention. MEDICAL HISTORY : Diabetes mellitus type 2. Congestive heart failure. Renal failure, chronic.Hypertension SURGICAL HISTORY : Appendectomy. Colon resection. ENCOUNTER: Subsequent ACUITY: 1 week PAIN SCORE: Non-responsive. LOCATION: Abdomen. FINDINGS: Supine view of the abdomen was performed. Air filled bowel loops centrally. The abdominal bowel gas p attern is normal. No abnormal masses, calcifications, or organomegaly is seen. The osseous structur es are unremarkable. CONCLUSION: Air-filled bowel loops centrally but no obstruction seen. Uli Atkins MD on July 24, 2016 at 8:50 Board Certified Radiologist. This report was verified electronically.
[2016-07-24] MEDS: DOCUSATE SODIUM 100 MG CAP PO SCH ×2 (09:00→21:00)
[2016-07-24] MEDS: SODIUM CHLORIDE 0.9% FLUSH 10 ML FLUSH IV FLUSH SCH ×2 (09:00→21:15)
[2016-07-24] MEDS: SODIUM CHLORIDE 0.9% FLUSH 10 ML FLUSH IVF SCH (09:00)
[2016-07-24] MEDS: PANTOPRAZOLE SODIUM 40 MG VIAL IV SCH (09:34)
[2016-07-24 09:54] LABS: APTT (PATIENT) 85.8 SEC (24.3-30.1)
[2016-07-24 09:55] LABS: BLOOD GAS BASE EXCESS -10.2 mmol/L (-2-2); BLOOD GAS CARBOXYHEMOGLOBIN 0.8 % (0-4); BLOOD GAS HCO3 15 mmol/L (22-26); BLOOD GAS METHEMOGLOBIN 1.5 % (0-2); BLOOD GAS O2 HGB SATURATION 91 % (90-100); BLOOD GAS OXYGEN CONTENT 11.8 Vol % (12.0-20.0); BLOOD GAS PCO2 34 mmHg (38-42); BLOOD GAS PO2 77 mmHg (61-120); BLOOD GAS TOTAL HGB 9.2 G/DL (12.0-16.0); TEMP CORR TO 98.6
[2016-07-24 09:56] LABS: CRITICAL VALUE YES; DRAW SITE ART LINE; FIO2 55 %; OXYGEN DEVICE VENTILATOR; STAT YES; VENT SETTINGS AC 20/550/8+
[2016-07-24] MEDS ORDERED: LORazepam 2 MG/ML VIAL IV PUSH ONE (10:15)
[2016-07-24] MEDS ORDERED: LORazepam 2 MG/ML VIAL IV PUSH PRN (10:15)
[2016-07-24] MEDS: SENNOSIDES SYRUP 8.8 MG/5 ML CUP OG-TUBE SCH (11:25)
[2016-07-24] MEDS ORDERED: SODIUM BICARBONATE 8.4% SOLN 50 MEQ/50 ML VIAL IV ONE (11:45)
--- NOTE | 2016-07-24 11:47 | HHI.NPPN ---
Subjective History of Present Illness 71-year-old male with past medical history of diabetes mellitus, hypertension, ischemic heart disease, peripheral neuropathy, chronic kidney disease, history of deep vein thrombosis, hyperlipidemia was brought to the hospital because of generalized weakness, confusion and vomiting and diarrhea. I was called to see the patient because of elevated BUN and creatinine. The patient has history of acute kidney injury in the past and chronic kidney disease. His creatinine was around 1.2 to 1.4, this was in 2012. Additional Remarks Patient is on the vent. and sedation, open eyes on stimuli, remain on CRRT, has low BP and on pressors. Review of Systems General General Remarks Intubated and sedated. Objective Data Data 07/23/16 07/24/16 19:00 07:00 Intake Total 2041 ml 3992 ml Output Total 300.0 ml 135 ml Balance 1741.0 ml 3857 ml Intake IV Total 1658 ml 3992 ml Tube Feeding 383 ml Output Urine Total 100 ml 135 ml Tube Feeding Residual Discard 200.0 ml # Bowel Movements 1 0 Vital Signs Date Time Temp Pulse Resp B/P Pulse Ox O2 Delivery O2 Flow Rate FiO2 07/24/16 11:17 96 55 07/24/16 10:00 109 07/24/16 09:30 55 07/24/16 08:14 93 45 07/24/16 08:00 112 07/24/16 08:00 98.7 112 20 113/55 96 07/24/16 08:00 45 07/24/16 06:00 111 07/24/16 04:00 40 07/24/16 04:00 97.9 108 20 114/55 97 07/24/16 04:00 106 07/24/16 03:46 94 40 07/24/16 02:00 99 07/24/16 00:45 98 40 07/24/16 00:00 45 07/24/16 00:00 97.6 99 20 129/59 99 07/24/16 00:00 106 07/23/16 22:00 106 07/23/16 20:00 113 07/23/16 20:00 97.6 113 21 114/54 99 07/23/16 20:00 45 07/23/16 19:46 96 45 07/23/16 18:00 113 07/23/16 16:45 45 07/23/16 16:00 104 07/23/16 16:00 97.5 104 24 135/58 97 07/23/16 16:00 45 07/23/16 15:45 94 45 07/23/16 14:00 95 07/23/16 12:00 103 07/23/16 12:00 97.7 103 24 113/57 94 07/23/16 12:00 45 07/23/16 11:47 94 45 -: 07/24/16 0425 07/24/16 0425 Physical Exam General Appearance Remarks Intubated and sedated. Eyes Eye Exam: Pupils Equal Throat Throat Exam: Oral Mucosa [place] & Moist Neck Neck Exam: Neck Supple Pulmonary Resp Exam: Rhonchi, Decreased Bases, Diminished Breath Sounds, Poor Inspiratory Effort Cardiology CV Exam: Regular, Normal Sinus Rhythm Gastrointestinal/Abdomen GI Exam: Soft, Non-Tender, Bowel Sounds Present Extremeties Extremities Exam: Trace Edema Neurologic Neuro Exam: Unresponsive, Sedated Assessment/Plan Assessment Summary: ADALID/Acute Renal Failure Electrolyte Assessment: Metabolic Acidosis Problem List: (1) Diabetes mellitus with neuropathy (2) Leukocytosis (3) Peripheral vascular disease (4) Severe sepsis with acute organ dysfunction (5) History of DVT (deep vein thrombosis) (6) Hypoxia (7) Acidosis (8) Lactic acidosis Plan Patient has low urine out put. BP is still low, on multiple pressors. BC results noted, seen by ID. Now on Unasyn and Clindamycin. To start CRRT, informed the HD RN and orders given. K and calcium improving. Po4 elevated, should improve with HD. CPK also elevated, but improving. Continue same CRRT, remove fluid as tolerated. HCo3 was low, and started on HCo3 replacement. Problem Qualifiers (1) Diabetes mellitus with neuropathy: Qualified Code: E11.40 - Type 2 diabetes mellitus with diabetic neuropathy, unspecified custodial insulin use status (2) Leukocytosis: Qualified Code: D72.829 - Leukocytosis, unspecified type Frank Magana MD July 24, 2016 11:47
--- NOTE | 2016-07-24 11:48 | HHI.CCPN ---
Subjective Remarks/Hospital Course 71-year-old male. Date of admission 07/20/2016. Past records includes diabetes with neuropathy and nephropathy, hypertension, dyslipidemia, chronic pain syndrome, history of DVT/PE on chronic anticoagulation, peripheral vascular disease with history of AAA, and osteoporosis. Patient recently C [place] 07/06/16. Patient sick contacts would include neighbor with "vital illness. Patient is to [facility] ER today with acute onset of diarrhea, hypoglycemia and chills. Upon arrival, patient was noted be acutely hypoxic and required a nonrebreather mask. Patient denies pleuritic chest pain , abdominal pain but positive for nausea and diarrhea. CT chest revealed bilateral lower lobe scarring, bilateral adrenal adenomas a nonspecific bowel gas pattern. Chest x-ray revealed no significant findings. Lab work included a lactic acid elevated 7.7, white blood cell count 12,000 in acute kidney injury with a creatinine of 3.0. Baseline around 1.5-2. Troponin was slightly elevated 0.14. EKG is currently pending. Upon arrival to [facility], patient was extremely mottled with rates in the 40s. Patient was emergently intubated please see note and a left IJ central line was placed. CT of the head, abdomen and pelvis currently pending. 07/21 Patient is sedated with Diprivan and Fentanyl and intubated. On Levophed 22 mics, Vasopressin and bicarb drip. BC from 07/20: GPC all 4 bottles. 07/22 Patient remains sedated and intubated On Levophed 22 mics, vasopressin and bicarb drip. Awaiting to start CVVHD today 07/23: Remains sedated, orally intubated on mech ventilation. On Levophed 15 mics per minute and low-dose vasopressin for pressor support. On CRRT. 07/24: Remains sedated, orally intubated on mechanical ventilation. On Levophed 7 mics per minute and low-dose vasopressin for pressor support. CRRT was stopped at 1:30 AM due to Wu system and has now been resumed. 2 A of bicarbonate given for metabolic acidosis while CRRT held and bicarbonate drip was started back yesterday. Objective Vital Signs Date Time Temp Pulse Resp B/P Pulse Ox O2 Delivery O2 Flow Rate FiO2 07/24/16 11:17 96 55 07/24/16 10:00 109 07/24/16 08:00 98.7 20 113/55 07/20/16 14:00 Mechanical Ventilator 07/20/16 13:04 15 Intake and Output 07/23/16 07/23/16 07/23/16 07:59 15:59 23:59 Intake Total 1488 ml 2041 ml 1871 ml Output Total 75 ml 100 ml 260.0 ml Balance 1413 ml 1941 ml 1611.0 ml Result Diagram: 07/24/16 0425 07/24/16 0425 Other Results Microbiology Date/Time Procedure Status Source Growth 07/21/16 11:30 Rotavirus Antigen - Final Complete Stool Stool NEGATIVE - ROTAVIRUS ANTIGEN IS ABSEN... 07/21/16 11:30 - Final Complete Stool Stool NO ENTERIC PATHOGENS DETECTED BY PCR... 07/21/16 11:30 Legionella Antigen - Final Complete Urine Catheterized Urine PRESUMPTIVE NEGATIVE FOR LEGIONELLA P... 07/21/16 11:30 Streptococcus pneumoniae Antigen (M - Final Complete Urine Catheterized Urine PRESUMPTIVE NEGATIVE FOR STREPTOCOCCU... 07/21/16 18:25 Gram Stain - Final Complete Sputum Endotracheal 07/21/16 18:25 Sputum Culture - Final Complete Sputum Endotracheal NO GROWTH IN 48 HOURS. Laboratory Tests Test 07/23/16 07/23/16 07/23/16 07/23/16 14:35 16:20 17:00 18:23 Activated Partial 78.8 SEC 80.0 SEC 77.6 SEC Thromboplast Time Blood Gas Puncture Site ART LINE Blood Gas Patient Temperature 98.6 Blood Gas HCO3 14 mmol/L Blood Gas Base Excess -11.2 mmol/L Blood Gas Oxygen Saturation 91 % Arterial Blood pH 7.31 Arterial Blood Partial 28 mmHg Pressure CO2 Arterial Blood Partial 80 mmHg Pressure O2 Arterial Blood Oxygen Content 13.6 Vol % Arterial Blood 0.8 % Carboxyhemoglobin Arterial Blood Methemoglobin 1.5 % Blood Gas Hemoglobin 10.6 G/DL Oxygen Delivery Device VENTILATOR Blood Gas Ventilator Setting AC/24/550/PEEP8 Blood Gas Inspired Oxygen 45 % Test 07/23/16 07/23/16 07/24/16 07/24/16 20:15 23:05 04:25 09:10 Sodium Level 140 MEQ/L 142 MEQ/L Potassium Level 2.8 MEQ/L 3.2 MEQ/L Chloride Level 106 MEQ/L 106 MEQ/L Carbon Dioxide Level 16.8 MEQ/L 16.1 MEQ/L Anion Gap 17 MEQ/L 20 MEQ/L Blood Urea Nitrogen 62 MG/DL 63 MG/DL Creatinine 4.65 MG/DL 4.64 MG/DL Estimat Glomerular Filtration 13 ML/MIN 13 ML/MIN Rate Random Glucose 215 MG/DL 224 MG/DL Calcium Level 6.3 MG/DL 7.0 MG/DL Protein Corrected Calcium 7.0 MG/DL 7.9 MG/DL Total Protein 5.5 GM/DL 5.4 GM/DL Activated Partial 78.3 SEC 85.7 SEC 85.8 SEC Thromboplast Time White Blood Count 11.6 TH/MM3 Red Blood Count 3.08 MIL/MM3 Hemoglobin 9.4 GM/DL Hematocrit 27.5 % Mean Corpuscular Volume 89.3 FL Mean Corpuscular Hemoglobin 30.6 PG Mean Corpuscular Hemoglobin 34.2 % Concent Red Cell Distribution Width 14.0 % Platelet Count 37 TH/MM3 Mean Platelet Volume 11.4 FL Neutrophils (%) (Auto) 95.3 % Lymphocytes (%) (Auto) 2.0 % Monocytes (%) (Auto) 2.4 % Eosinophils (%) (Auto) 0.0 % Basophils (%) (Auto) 0.3 % Neutrophils # (Auto) 11.0 TH/MM3 Lymphocytes # (Auto) 0.2 TH/MM3 Monocytes # (Auto) 0.3 TH/MM3 Eosinophils # (Auto) 0.0 TH/MM3 Basophils # (Auto) 0.0 TH/MM3 CBC Comment AUTO DIFF Differential Total Cells 100 Counted Neutrophils % (Manual) 79 % Band Neutrophils % 13 % Lymphocytes % 5 % Monocytes % 1 % Neutrophils # (Manual) 10.9 TH/MM3 Metamyelocytes 1 % Myelocytes 1 % Differential Comment FINAL DIFF MANUAL Dohle Bodies PRESENT Platelet Estimate LOW Platelet Morphology Comment ENLARGED Lactic Acid Level 0.9 mmol/L Total Bilirubin 0.7 MG/DL Aspartate Amino Transf 24 U/L (AST/SGOT) Alanine Aminotransferase 34 U/L (ALT/SGPT) Alkaline Phosphatase 60 U/L Albumin 1.5 GM/DL Fibrinogen 857 mg/dL Test 07/24/16 09:48 Blood Gas Puncture Site ART LINE Blood Gas Patient Temperature 98.6 Blood Gas HCO3 15 mmol/L Blood Gas Base Excess -10.2 mmol/L Blood Gas Oxygen Saturation 91 % Arterial Blood pH 7.27 Arterial Blood Partial 34 mmHg Pressure CO2 Arterial Blood Partial 77 mmHg Pressure O2 Arterial Blood Oxygen Content 11.8 Vol % Arterial Blood 0.8 % Carboxyhemoglobin Arterial Blood Methemoglobin 1.5 % Blood Gas Hemoglobin 9.2 G/DL Oxygen Delivery Device VENTILATOR Blood Gas Ventilator Setting AC 20/550/8+ Blood Gas Inspired Oxygen 55 % Imaging Last 48 hours Impressions Abdomen X-Ray 07/24/16 0749 Signed Impressions: Service Date/Time: July 08:28 - CONCLUSION: Air-filled bowel loops centrally but no obstruction seen. Uli Atkins MD Chest X-Ray 07/24/16 0600 Signed Impressions: Service Date/Time: July 05:36 - CONCLUSION: Unchanged bibasilar infiltrates. Omer Cheng Jr., MD Last Impressions Chest X-Ray 07/21/16 0000 Signed Impressions: Service Date/Time: Thursday, July 21, 2016 22:13 - CONCLUSION: Satisfactory central line positioning. Worsening aeration. [place] Guillermo MD Renal Ultrasound 07/20/16 0000 Signed Impressions: Service Date/Time: Wednesday, July 20, 2016 14:32 - CONCLUSION: 1. No acute findings. Renal ultrasound unremarkable. Bladder was not well-visualized. Jose Martin Valderrama MD Lower Extremity Ultrasound 07/20/16 0000 Signed Impressions: Service Date/Time: Wednesday, July 20, 2016 14:39 - CONCLUSION: Negative exam with no evidence of deep venous thrombosis. Alonzo Bradshaw MD Head CT 07/20/16 0000 Signed Impressions: Service Date/Time: Wednesday, July 20, 2016 18:21 - CONCLUSION: 1. No acute intracranial abnormalities. Mild mucosal thickening of the ethmoid air cells. Jose Martin Valderrama MD Chest CT 07/20/16 0000 Signed Impressions: Service Date/Time: Wednesday, July 20, 2016 11:28 - CONCLUSION: 1. Chronic scarring in the lung bases left greater than right. 2. No focal consolidation. 3. Bilateral adrenal masses left greater than right most consistent with adenomas. 4. Nonspecific bowel gas pattern noted in the upper abdomen with air-fluid levels in the small bowel. Alonzo Bradshaw MD Abdomen/Pelvis CT 07/20/16 0000 Signed Impressions: Service Date/Time: Jean-Pierre, July 20, 2016 18:24 - CONCLUSION: 1. Lower abdominal ventral midline hernia containing loop of small bowel. Small bowel is mildly distended somewhat diffusely with fluid and air. Cannot exclude a low grade partial bowel obstruction in the area of herniation. 2. No abnormal fluid collections to suggest abscess. No free air or free fluid. 3. Basilar and dependent lung consolidation, left greater than right. Pneumonia could have this appearance. Small left effusion. 4. NG tip in stomach. Inferior vena cava filter present. Connelly catheter in bladder. Jose Martin Valderrama MD Objective Remarks GENERAL: Patient is 71 yo critically ill intubated and sedated. SKIN: Warm and dry. HEAD: Normocephalic. EYES: Pallor present. No scleral icterus. No injection or drainage. NECK: Supple, trachea midline. No JVD or lymphadenopathy. CARDIOVASCULAR: Regular rate and rhythm without murmurs, gallops, or rubs. RESPIRATORY: Orally intubated on mechanical ventilation, Breath sounds equal bilaterally. Scattered rhonchi, no wheezing. GASTROINTESTINAL: Abdomen soft, non-tender, nondistended. Bowel sounds sluggish Neuro: Sedated, intubated Extremities: Warm bilaterally, Bilateral edema Line: Central Venous Catheter A/P Assessment and Plan Neuro/Psych: Peripheral neuropathy Chronic pain syndrome Patient is currently on propofol/fentanyl drips for sedation/analgesia while intubated. Added Ativan IV when necessary for sedation. Goal of RASS -2 Daily sedation vacation when appropriate 07/20 CT brain: No acute intracranial abnormalities. CV: Elevated troponin Hypertension Dyslipidemia Lactic acidosis Peripheral vascular disease History of AAA Continue with pressors( Levo, Vaso) keep MAP>65mmHg Serial lactic acid monitoring On Stress dose steroids- HC 50mg IV Q8 Monitor CK/trop, Continue with ASA daily Echo showed EF 35-40% Resp: Acute hypoxemic respiratory failure Tobaccoism Continue with vent support keep sat >92% Ventilator bundle Bronchodilator therapy every 4 hours with albuterol every 2 hours. Hold off on spontaneous breathing trials in the of high pressor requirement and significant metabolic acidosis. CT chest 07/20 revealed left greater than right basilar scarring. Bilateral adrenal adenomas. No focal consolidation GI: Continue tube feeds- Nepro with goal rate 40ml/hr Protonix for GI prophylaxis Colace/as needed Senokot for bowel regimen CT abdomen reviewed. Gen surgery- Dr Roman- no surgical interventions. : Strict intake output, monitor and replete electrolytes, follow BUN/creatinine. Started CRRT on 07/22, being followed by nephrology Dr. 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 Worsening platelet count noted, probably secondary to sepsis. HIT screen negative. Consult hematology. ID: Continue with abx per ID (Unasyn, Clindamycin, vanco x 1 dose) monitor for signs of infections - Pertinent cultures BC 07/20- GPC, Group A Beta strep Urine cx 07/20 : Pending Strep pneumonia nad Legionella urinary Ag negative Follow up on Sputum cx, BC 07/21- NGTD MSK: Osteoarthritis Holding vitamin D 1000 units by mouth daily. Access - Left IJ CVL placed 07/20, Art line placed 07/21 -Right IJ vascath placed 07/22 Prophylaxis - GI - Protonix - DVT - SCD/heparin SQ -Doppler US LE negative for DVT Palliative care is following Patient is critically ill with resp failure, renal failure, septic shock and multiorgan injury. Prognosis guarded. I had a long discussion with patient's and daughter at bedside on 07/23 regarding current clinical condition and plan of care and they voiced understanding and were appreciated. I also explained possible need for tracheostomy and PEG tube in about 2 weeks since getting intubated if aggressive care desired at that time. 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 Time to perform other separately billable procedures was not included in the critical care time. Roman Hicks MD July 24, 2016 11:48
[2016-07-24] MEDS ORDERED: SODIUM BICARBONATE 8.4% INJ 50 MEQ/50 ML SYR IV ONE (12:00)
[2016-07-24] MEDS: CALCIUM GLUCONATE INJ 2 GM in SODIUM CHLORIDE 0.9% INJ 100 ML IV SCH ×2 (12:14→17:23)
--- NOTE | 2016-07-24 12:15 | HHI.HCPN ---
Reason for visit a. To assist with evaluation and management of symptoms including: dyspnea; agitation; pain; encephalopathy b. To assist medical decision maker(s) with: better understanding of current medical conditions; weighing benefits/burdens of medical treatment options; making medical treatment decisions. . Subjective/Interval History INTERVAL NOTE Mr. Lemus remains sedated, minimally responsive, intubated, mechanically ventilated in the SICU. Patient had periods late yesterday where he was able to intermittently follow some simple commands with his upper extremities. Though eyes have been periodically open , he does not track. When sedation is lowered and he is more wakeful, nursing reports he fights vent and 02 sats fall. CRRT continues. Patient remains acidotic and continues to require supplemental bicarb. Still requiring two pressors for BP support. No evidence of pain per nursing notes. Afebrile. BPs 113- 135/54-60; HR 99 - 112; 02 sats 93-99 on 45-55% FI02. Urine output 235 cc. Bowels are moving. WBC 11.6; Hg 9.4 ; Plt 37 BUN 63; Creat 4.64 Anion gap 20; Lactic acid 0.9 Ca corrected 7.9 Alb 1.5 ABG 7.27 / 34 / 77 / 15 / -10.2 on 55% FI02. CXR --> unchanged bibasilar infiltrates Abdominal x-ray -- dilated loops of bowel; no evidence of obstruction. . Renal function continues to decline. Dialysis access was placed last night and patient is awaiting dialysis now. Pt remains on two pressor agents; systolic BPs now above 100. He has not appeared painful. Family is at bedside. Dr. Lopez was consulted to see if the hernia noted on CT scan might be playing role in this process. Dr. Lopez felt the hernia was easily reducible and therefore not an issue. Tmax 99.3. BP 100-118/ 54-60; RR 24; Pulse ox 95% on 45% FI02. Urine output 210. Bowels moving. WBC 13.4; Hg 11.0; Plt 62 BUN 59; creat 6.17; GFR 9; Ca corrected 6.3 Alb 1.7 Blood cx --> Group A Beta Strep . Family/friend interactions Spoke for 20 minutes with spouse and two daughters. Provided update, answered questions, discussed anticipated challenges going forward. . Advance Directives Living Will: Completed, but not made available Health Care Surrogate: Completed, but not made available Durable Power of Roll Picker: Never completed Advance Directive Specifics Date completed: will bring in the advance directive. Date of completion is unknown at this time. . Health Care Surrogate(s): will bring in a copy of the advance directive. She reports that she is listed as the designated health care surrogate. . Documented care wishes: will bring in a copy of the advance directive. At this point we do not have any written documentation of the patient's health care goals/preferences. . Objective Vital Signs Date Time Temp Pulse Resp B/P Pulse Ox O2 Delivery O2 Flow Rate FiO2 07/24/16 11:17 96 55 07/24/16 10:00 109 07/24/16 09:30 55 07/24/16 08:14 93 45 07/24/16 08:00 112 07/24/16 08:00 98.7 112 20 113/55 96 07/24/16 08:00 45 07/24/16 06:00 111 07/24/16 04:00 40 07/24/16 04:00 97.9 108 20 114/55 97 07/24/16 04:00 106 07/24/16 03:46 94 40 07/24/16 02:00 99 07/24/16 00:45 98 40 07/24/16 00:00 45 07/24/16 00:00 97.6 99 20 129/59 99 07/24/16 00:00 106 07/23/16 22:00 106 07/23/16 20:00 113 07/23/16 20:00 97.6 113 21 114/54 99 07/23/16 20:00 45 07/23/16 19:46 96 45 07/23/16 18:00 113 07/23/16 16:45 45 07/23/16 16:00 104 07/23/16 16:00 97.5 104 24 135/58 97 07/23/16 16:00 45 07/23/16 15:45 94 45 07/23/16 14:00 95 07/23/16 12:00 103 07/23/16 12:00 97.7 103 24 113/57 94 07/23/16 12:00 45 Intake & Output 07/24/16 07/24/16 07:00 19:00 Intake Total 3992 ml Output Total 135 ml Balance 3857 ml Intake IV Total 3992 ml Output Urine Total 135 ml # Bowel Movements 0 . Physical Exam CONSTITUTIONAL/GENERAL: This is an overweight male intubated/mechanically ventilated/sedated in a surgical intensive care unit bed. He does not awaken to voice or examination. No obvious distress. TUBES/LINES/DRAINS: Orotracheal tube; orogastric tube; left internal jugular central line; vas-cath right internal jugular; peripheral IV; SCDs; Connelly catheter SKIN: No jaundice, rashes, or lesions. No wounds seen anteriorly. Skin temperature warm but not diaphoretic. EYES: Pupils equal and round. Unable to assess extraocular motions. No scleral icterus. No injection or drainage. Fundi not examined. ENT: Unable to assess hearing. Nose without bleeding or purulent drainage. NECK: Trachea midline. CARDIOVASCULAR: Tachycardic; Regular hythm without murmurs, gallops, or rubs. No JVD. Cannot palpate foot pulses. RESPIRATORY/CHEST: Symmetric, unlabored respirations. Clear to auscultation. Breath sounds equal bilaterally but air movement diminished at bases. No wheezes , rales, or rhonchi. GASTROINTESTINAL: Abdomen soft, non-tender, slightly distended. No hepato- splenomegaly, or palpable masses. GENITOURINARY: Without palpable bladder distension. Connelly catheter in place. MUSCULOSKELETAL: Extremities without clubbing, cyanosis, or edema. No joint tenderness or effusion noted. No calf tenderness. No mottling. NEUROLOGICAL: Sedateddoes not stir to voice or examination. No spontaneous movements. Withdraws to noxious stimulus. PSYCHIATRIC: Unable to assess due to sedation.. . Diagnostic Tests Laboratory Laboratory Tests Test 07/21/16 07/21/16 07/21/16 07/22/16 14:40 16:29 18:21 06:00 Total Creatine Kinase 2214 U/L (39-308) Creatine Kinase MB 26.6 NG/ML (0.5-3.6) Creatine Kinase MB % 1.2 % (0.0-4.0) Troponin I 0.28 NG/ML (0.02-0.05) Blood Gas Puncture Site RT RADIAL ART LINE Blood Gas Patient Temperature 98.6 98.6 Blood Gas HCO3 17 mmol/L 16 mmol/L (22-26) (22-26) Blood Gas Base Excess -9.9 mmol/L -9.6 mmol/L (-2-2) (-2-2) Blood Gas Oxygen Saturation 81 % (90-100) 93 % (90-100) Arterial Blood pH 7.18 7.27 (7.380-7.420) (7.380-7.420) Arterial Blood Partial 48 mmHg (38-42) 36 mmHg (38-42) Pressure CO2 Arterial Blood Partial 56 mmHg 89 mmHg Pressure O2 (61-120) (61-120) Arterial Blood Oxygen Content 12.9 Vol % 14.6 Vol % (12.0-20.0) (12.0-20.0) Arterial Blood 0.7 % (0-4) 0.9 % (0-4) Carboxyhemoglobin Arterial Blood Methemoglobin 1.7 % (0-2) 1.8 % (0-2) Blood Gas Hemoglobin 11.3 G/DL 11.0 G/DL (12.0-16.0) (12.0-16.0) Oxygen Delivery Device VENTILATOR VENTILATOR Blood Gas Ventilator Setting AC AC 18/800/PEEP8 24/550/PEEP8 Blood Gas Inspired Oxygen 50 % 50 % White Blood Count 13.4 TH/MM3 (4.0-11.0) Red Blood Count 3.70 MIL/MM3 (4.50-5.90) Hemoglobin 11.0 GM/DL (13.0-17.0) Hematocrit 33.2 % (39.0-51.0) Mean Corpuscular Volume 89.9 FL (80.0-100.0) Mean Corpuscular Hemoglobin 29.7 PG (27.0-34.0) Mean Corpuscular Hemoglobin 33.1 % Concent (32.0-36.0) Red Cell Distribution Width 13.4 % (11.6-17.2) Platelet Count 62 TH/MM3 (150-450) Mean Platelet Volume 9.7 FL (7.0-11.0) Neutrophils (%) (Auto) 96.7 % (16.0-70.0) Lymphocytes (%) (Auto) 1.5 % (9.0-44.0) Monocytes (%) (Auto) 1.5 % (0.0-8.0) Eosinophils (%) (Auto) 0.1 % (0.0-4.0) Basophils (%) (Auto) 0.2 % (0.0-2.0) Neutrophils # (Auto) 13.0 TH/MM3 (1.8-7.7) Lymphocytes # (Auto) 0.2 TH/MM3 (1.0-4.8) Monocytes # (Auto) 0.2 TH/MM3 (0-0.9) Eosinophils # (Auto) 0.0 TH/MM3 (0-0.4) Basophils # (Auto) 0.0 TH/MM3 (0-0.2) CBC Comment AUTO DIFF Differential Total Cells 100 Counted Neutrophils % (Manual) 58 % (16-70) Band Neutrophils % 35 % (0-6) Lymphocytes % 3 % (9-44) Monocytes % 3 % (0-8) Eosinophils % 1 % (0-4) Neutrophils # (Manual) 12.5 TH/MM3 (1.8-7.7) Differential Comment FINAL DIFF MANUAL Toxic Granulation 1+ (NORMAL) Toxic Vacuolation PRESENT (NONE SEEN) Platelet Estimate LOW (NORMAL) Platelet Morphology Comment NORMAL (NORMAL) Sodium Level 135 MEQ/L (136-145) Potassium Level 3.1 MEQ/L (3.5-5.1) Chloride Level 96 MEQ/L (98-107) Carbon Dioxide Level 15.8 MEQ/L (21.0-32.0) Anion Gap 23 MEQ/L (5-15) Blood Urea Nitrogen 59 MG/DL (7-18) Creatinine 6.17 MG/DL (0.60-1.30) Estimat Glomerular Filtration 9 ML/MIN (>89) Rate Random Glucose 140 MG/DL (74-106) Calcium Level 5.4 MG/DL (8.5-10.1) Protein Corrected Calcium 6.3 MG/DL (8.5-10.1) Phosphorus Level 8.3 MG/DL (2.5-4.9) Magnesium Level 1.6 MG/DL (1.5-2.5) Total Bilirubin 0.8 MG/DL (0.2-1.0) Aspartate Amino Transf 69 U/L (15-37) (AST/SGOT) Alanine Aminotransferase 46 U/L (12-78) (ALT/SGPT) Alkaline Phosphatase 46 U/L (45-117) Total Protein 5.0 GM/DL (6.4-8.2) Albumin 1.7 GM/DL (3.4-5.0) Random Vancomycin Level 15.4 COMMENT Test 07/22/16 07/22/16 07/22/16 07/22/16 11:50 13:10 16:00 17:00 Activated Partial 60.6 SEC GREATER THAN 86.2 SEC Thromboplast Time (24.3-30.1) 153.4 SEC (24.3-30.1) (24.3-30.1) Lactic Acid Level 7.1 mmol/L (0.4-2.0) Test 07/22/16 07/22/16 07/22/16 07/22/16 17:01 17:40 18:00 18:01 Activated Partial 119.6 SEC 68.4 SEC 73.5 SEC Thromboplast Time (24.3-30.1) (24.3-30.1) (24.3-30.1) Heparin-Induced Platelet Ab NEGATIVE (Quiana) (NEGATIVE) HIPA Patient Optical Density 0.167 O.D. (0.000-0.300) Test 07/22/16 07/22/16 07/22/16 07/22/16 19:00 19:01 21:00 21:02 Activated Partial 63.2 SEC SEC 64.1 SEC Thromboplast Time (24.3-30.1) (24.3-30.1) (24.3-30.1) Prothrombin Time 34.3 SEC (9.8-11.6) Prothromb Time International 3.0 RATIO Ratio Fibrinogen 702 mg/dL (181-393) Lactic Acid Level 3.5 mmol/L (0.4-2.0) Blood Gas Puncture Site RENAE Blood Gas Patient Temperature 98.6 Blood Gas HCO3 18 mmol/L (22-26) Blood Gas Base Excess -5.5 mmol/L (-2-2) Blood Gas Oxygen Saturation 92 % (90-100) Arterial Blood pH 7.42 (7.380-7.420) Arterial Blood Partial 28 mmHg (38-42) Pressure CO2 Arterial Blood Partial 77 mmHg Pressure O2 (61-120) Arterial Blood Oxygen Content 14.6 Vol % (12.0-20.0) Arterial Blood 0.9 % (0-4) Carboxyhemoglobin Arterial Blood Methemoglobin 1.5 % (0-2) Blood Gas Hemoglobin 11.3 G/DL (12.0-16.0) Oxygen Delivery Device VENTILATOR Blood Gas Ventilator Setting AC/24/550/PEEP8 Blood Gas Inspired Oxygen 45 % Test 07/22/16 07/23/16 07/23/16 07/23/16 23:00 03:00 03:05 06:45 Activated Partial 64.8 SEC 68.9 SEC 68.2 SEC 70.9 SEC Thromboplast Time (24.3-30.1) (24.3-30.1) (24.3-30.1) (24.3-30.1) White Blood Count 16.0 TH/MM3 (4.0-11.0) Red Blood Count 3.61 MIL/MM3 (4.50-5.90) Hemoglobin 10.6 GM/DL (13.0-17.0) Hematocrit 32.2 % (39.0-51.0) Mean Corpuscular Volume 89.3 FL (80.0-100.0) Mean Corpuscular Hemoglobin 29.5 PG (27.0-34.0) Mean Corpuscular Hemoglobin 33.0 % Concent (32.0-36.0) Red Cell Distribution Width 13.6 % (11.6-17.2) Platelet Count 39 TH/MM3 (150-450) Mean Platelet Volume 10.6 FL (7.0-11.0) Neutrophils (%) (Auto) 96.3 % (16.0-70.0) Lymphocytes (%) (Auto) 1.1 % (9.0-44.0) Monocytes (%) (Auto) 2.1 % (0.0-8.0) Eosinophils (%) (Auto) 0.1 % (0.0-4.0) Basophils (%) (Auto) 0.4 % (0.0-2.0) Neutrophils # (Auto) 15.4 TH/MM3 (1.8-7.7) Lymphocytes # (Auto) 0.2 TH/MM3 (1.0-4.8) Monocytes # (Auto) 0.3 TH/MM3 (0-0.9) Eosinophils # (Auto) 0.0 TH/MM3 (0-0.4) Basophils # (Auto) 0.1 TH/MM3 (0-0.2) CBC Comment AUTO DIFF Differential Total Cells 100 Counted Neutrophils % (Manual) 86 % (16-70) Band Neutrophils % 13 % (0-6) Lymphocytes % 1 % (9-44) Neutrophils # (Manual) 15.8 TH/MM3 (1.8-7.7) Differential Comment FINAL DIFF MANUAL Platelet Estimate LOW (NORMAL) Platelet Morphology Comment NORMAL (NORMAL) Sodium Level 138 MEQ/L (136-145) Potassium Level 2.8 MEQ/L (3.5-5.1) Chloride Level 103 MEQ/L (98-107) Carbon Dioxide Level 16.8 MEQ/L (21.0-32.0) Anion Gap 18 MEQ/L (5-15) Blood Urea Nitrogen 61 MG/DL (7-18) Creatinine 5.43 MG/DL (0.60-1.30) Estimat Glomerular Filtration 10 ML/MIN (>89) Rate Random Glucose 155 MG/DL (74-106) Lactic Acid Level 1.8 mmol/L (0.4-2.0) Calcium Level 5.7 MG/DL (8.5-10.1) Protein Corrected Calcium 6.4 MG/DL (8.5-10.1) Total Bilirubin 0.9 MG/DL (0.2-1.0) Aspartate Amino Transf 46 U/L (15-37) (AST/SGOT) Alanine Aminotransferase 42 U/L (12-78) (ALT/SGPT) Alkaline Phosphatase 70 U/L (45-117) Total Creatine Kinase 939 U/L (39-308) Creatine Kinase MB 28.7 NG/ML (0.5-3.6) Creatine Kinase MB % 3.1 % (0.0-4.0) Total Protein 5.4 GM/DL (6.4-8.2) Albumin 1.6 GM/DL (3.4-5.0) Random Vancomycin Level 26.3 COMMENT Test 07/23/16 07/23/16 07/23/16 07/23/16 10:50 14:35 16:20 17:00 Activated Partial 73.1 SEC 78.8 SEC 80.0 SEC Thromboplast Time (24.3-30.1) (24.3-30.1) (24.3-30.1) Blood Gas Puncture Site ART LINE Blood Gas Patient Temperature 98.6 Blood Gas HCO3 14 mmol/L (22-26) Blood Gas Base Excess -11.2 mmol/L (-2-2) Blood Gas Oxygen Saturation 91 % (90-100) Arterial Blood pH 7.31 (7.380-7.420) Arterial Blood Partial 28 mmHg (38-42) Pressure CO2 Arterial Blood Partial 80 mmHg Pressure O2 (61-120) Arterial Blood Oxygen Content 13.6 Vol % (12.0-20.0) Arterial Blood 0.8 % (0-4) Carboxyhemoglobin Arterial Blood Methemoglobin 1.5 % (0-2) Blood Gas Hemoglobin 10.6 G/DL (12.0-16.0) Oxygen Delivery Device VENTILATOR Blood Gas Ventilator Setting AC/24/550/PEEP8 Blood Gas Inspired Oxygen 45 % Test 07/23/16 07/23/16 07/23/16 07/24/16 18:23 20:15 23:05 04:25 Activated Partial 77.6 SEC 78.3 SEC 85.7 SEC Thromboplast Time (24.3-30.1) (24.3-30.1) (24.3-30.1) Sodium Level 140 MEQ/L 142 MEQ/L (136-145) (136-145) Potassium Level 2.8 MEQ/L 3.2 MEQ/L (3.5-5.1) (3.5-5.1) Chloride Level 106 MEQ/L 106 MEQ/L (98-107) (98-107) Carbon Dioxide Level 16.8 MEQ/L 16.1 MEQ/L (21.0-32.0) (21.0-32.0) Anion Gap 17 MEQ/L (5-15) 20 MEQ/L (5-15) Blood Urea Nitrogen 62 MG/DL (7-18) 63 MG/DL (7-18) Creatinine 4.65 MG/DL 4.64 MG/DL (0.60-1.30) (0.60-1.30) Estimat Glomerular Filtration 13 ML/MIN (>89) 13 ML/MIN (>89) Rate Random Glucose 215 MG/DL 224 MG/DL (74-106) (74-106) Calcium Level 6.3 MG/DL 7.0 MG/DL (8.5-10.1) (8.5-10.1) Protein Corrected Calcium 7.0 MG/DL 7.9 MG/DL (8.5-10.1) (8.5-10.1) Total Protein 5.5 GM/DL 5.4 GM/DL (6.4-8.2) (6.4-8.2) White Blood Count 11.6 TH/MM3 (4.0-11.0) Red Blood Count 3.08 MIL/MM3 (4.50-5.90) Hemoglobin 9.4 GM/DL (13.0-17.0) Hematocrit 27.5 % (39.0-51.0) Mean Corpuscular Volume 89.3 FL (80.0-100.0) Mean Corpuscular Hemoglobin 30.6 PG (27.0-34.0) Mean Corpuscular Hemoglobin 34.2 % Concent (32.0-36.0) Red Cell Distribution Width 14.0 % (11.6-17.2) Platelet Count 37 TH/MM3 (150-450) Mean Platelet Volume 11.4 FL (7.0-11.0) Neutrophils (%) (Auto) 95.3 % (16.0-70.0) Lymphocytes (%) (Auto) 2.0 % (9.0-44.0) Monocytes (%) (Auto) 2.4 % (0.0-8.0) Eosinophils (%) (Auto) 0.0 % (0.0-4.0) Basophils (%) (Auto) 0.3 % (0.0-2.0) Neutrophils # (Auto) 11.0 TH/MM3 (1.8-7.7) Lymphocytes # (Auto) 0.2 TH/MM3 (1.0-4.8) Monocytes # (Auto) 0.3 TH/MM3 (0-0.9) Eosinophils # (Auto) 0.0 TH/MM3 (0-0.4) Basophils # (Auto) 0.0 TH/MM3 (0-0.2) CBC Comment AUTO DIFF Differential Total Cells 100 Counted Neutrophils % (Manual) 79 % (16-70) Band Neutrophils % 13 % (0-6) Lymphocytes % 5 % (9-44) Monocytes % 1 % (0-8) Neutrophils # (Manual) 10.9 TH/MM3 (1.8-7.7) Metamyelocytes 1 % (0-1) Myelocytes 1 % (0-0) Differential Comment FINAL DIFF MANUAL Dohle Bodies PRESENT (NONE SEEN) Platelet Estimate LOW (NORMAL) Platelet Morphology Comment ENLARGED (NORMAL) Lactic Acid Level 0.9 mmol/L (0.4-2.0) Total Bilirubin 0.7 MG/DL (0.2-1.0) Aspartate Amino Transf 24 U/L (15-37) (AST/SGOT) Alanine Aminotransferase 34 U/L (12-78) (ALT/SGPT) Alkaline Phosphatase 60 U/L (45-117) Albumin 1.5 GM/DL (3.4-5.0) Test 07/24/16 07/24/16 09:10 09:48 Activated Partial 85.8 SEC Thromboplast Time (24.3-30.1) Fibrinogen 857 mg/dL (181-393) Blood Gas Puncture Site ART LINE Blood Gas Patient Temperature 98.6 Blood Gas HCO3 15 mmol/L (22-26) Blood Gas Base Excess -10.2 mmol/L (-2-2) Blood Gas Oxygen Saturation 91 % (90-100) Arterial Blood pH 7.27 (7.380-7.420) Arterial Blood Partial 34 mmHg (38-42) Pressure CO2 Arterial Blood Partial 77 mmHg Pressure O2 (61-120) Arterial Blood Oxygen Content 11.8 Vol % (12.0-20.0) Arterial Blood 0.8 % (0-4) Carboxyhemoglobin Arterial Blood Methemoglobin 1.5 % (0-2) Blood Gas Hemoglobin 9.2 G/DL (12.0-16.0) Oxygen Delivery Device VENTILATOR Blood Gas Ventilator Setting AC 20/550/8+ Blood Gas Inspired Oxygen 55 % . Result Diagram: 07/24/16 0425 07/24/16 0425 Microbiology Microbiology Date/Time Procedure Status Source Growth 07/21/16 14:30 Aerobic Blood Culture - Preliminary Resulted Blood Peripheral NO GROWTH IN 3 DAYS 07/21/16 14:30 Anaerobic Blood Culture - Preliminary Resulted Blood Peripheral NO GROWTH IN 3 DAYS 07/21/16 14:45 Aerobic Blood Culture - Preliminary Resulted Blood Peripheral NO GROWTH IN 3 DAYS 07/21/16 14:45 Anaerobic Blood Culture - Preliminary Resulted Blood Peripheral NO GROWTH IN 3 DAYS 07/21/16 18:25 Gram Stain - Final Complete Sputum Endotracheal 07/21/16 18:25 Sputum Culture - Final Complete Sputum Endotracheal NO GROWTH IN 48 HOURS. 07/22/16 03:57 Aerobic Blood Culture - Preliminary Resulted Blood Peripheral NO GROWTH IN 2 DAYS 07/22/16 03:57 Anaerobic Blood Culture - Preliminary Resulted Blood Peripheral NO GROWTH IN 2 DAYS . Imaging Last Impressions Abdomen X-Ray 07/24/16 0749 Signed Impressions: Service Date/Time: July 08:28 - CONCLUSION: Air-filled bowel loops centrally but no obstruction seen. Uli Atkins MD Chest X-Ray 07/24/16 0600 Signed Impressions: Service Date/Time: July 05:36 - CONCLUSION: Unchanged bibasilar infiltrates. Omer Cheng Jr., MD Renal Ultrasound 07/20/16 0000 Signed Impressions: Service Date/Time: Wednesday, July 20, 2016 14:32 - CONCLUSION: 1. No acute findings. Renal ultrasound unremarkable. Bladder was not well-visualized. Jose Martin Valderrama MD Lower Extremity Ultrasound 07/20/16 0000 Signed Impressions: Service Date/Time: Wednesday, July 20, 2016 14:39 - CONCLUSION: Negative exam with no evidence of deep venous thrombosis. Alonzo Bradshaw MD Head CT 07/20/16 0000 Signed Impressions: Service Date/Time: Wednesday, July 20, 2016 18:21 - CONCLUSION: 1. No acute intracranial abnormalities. Mild mucosal thickening of the ethmoid air cells. Jose Martin Valderrama MD Chest CT 07/20/16 0000 Signed Impressions: Service Date/Time: Wednesday, July 20, 2016 11:28 - CONCLUSION: 1. Chronic scarring in the lung bases left greater than right. 2. No focal consolidation. 3. Bilateral adrenal masses left greater than right most consistent with adenomas. 4. Nonspecific bowel gas pattern noted in the upper abdomen with air-fluid levels in the small bowel. Alonzo Bradshaw MD Abdomen/Pelvis CT 07/20/16 0000 Signed Impressions: Service Date/Time: Wednesday, July 20, 2016 18:24 - CONCLUSION: 1. Lower abdominal ventral midline hernia containing loop of small bowel. Small bowel is mildly distended somewhat diffusely with fluid and air. Cannot exclude a low grade partial bowel obstruction in the area of herniation. 2. No abnormal fluid collections to suggest abscess. No free air or free fluid. 3. Basilar and dependent lung consolidation, left greater than right. Pneumonia could have this appearance. Small left effusion. 4. NG tip in stomach. Inferior vena cava filter present. Connelly catheter in bladder. Jose Martin Valderrama MD . Procedures * Intubation/mechanical ventilation 07/20/16 * Left internal jugular central line placement 07/20/16 * Right jugular vas-cath placement * CRRT . . . Assessment and Plan Disease Oriented Problem List: (1) Severe sepsis with acute organ dysfunction Comment: Blood cx growing out Group A strep . (2) Respiratory failure (3) Lactic acidosis Comment: Improved -- but metabolic acidosis persists with elevated anion gap. . (4) Hypoxia (5) Peripheral vascular disease (6) Hypertension (7) Dyslipidemia (8) Chronic anticoagulation (9) Elevated troponin (10) History of DVT (deep vein thrombosis) (11) Acute kidney injury Comment: Now on CRRT. (12) Thrombocytopenia (13) Metabolic acidosis Comment: This has remained profound and persistent in spite of normalization of lactic acid. . Symptom Scale: (1) Pain 0-10 Scale: Unable to quantify Comment: Patient has chronic pain mostly in the lower extremities from a combination of peripheral vascular disease and diabetic neuropathy. He had been prescribed opiates in the past but normally takes no analgesics because he doesn't like the side effects. Additional sources of discomfort at this time would include prolonged bedbound status; orotracheal/orogastric intubations; Connelly catheter; vascular access lines. . (2) Dyspnea 0-10 Scale: Unable to quantify (dyspnea seems managed with mechanical ventilation.) Comment: Controlled with mechanical ventilation . (3) Encephalopathy 0-10 Scale: Unable to quantify Comment: Encephalopathy is most likely multifactorial and in large part due to the septic shock. Based on the history, it is unlikely that the duration of hypoglycemia or hypotension would've caused any type of permanent damage. There is no prior history of underlying dementia. . Pertinent Non-Medical Issues Psychosocial: Patient is well supported by his spouse and daughter who live locally, many friends who live locally, and 2 daughters who have flown in from [place] and [place]. Spiritual: Patient was raised in a Yazidi home. Now identifies himself as a Denominational. Baptism and spirituality have not played a large part in his life of late. Legal: reports the patient has completed an advanced directive. She will bring a copy into scanned into the medical record. Ethical issues impacting care: Patient is currently incapacitated to make his own health care decisions. It remains uncertain if he will regain capacity to do so. . Important Contacts == Spouse (Alysia Lemus) [phone] == Daughter (Adenike) [phone] . Prognosis Though Mr Lemus is quite critically ill with septic shock and multiple organs being affected, it is also important to note that in spite of his underlying chronic illnesses , his functional status was reasonably good prior to becoming acutely ill so suddenly. Family, understandably, want to give him a chance to see if he is able to get through this acute period. He had a similar episode of severe illness approximately 10 years ago after being hospitalized with a ruptured appendix. Family has witnessed him being able to recover from that. The rapidity of progression to overwhelming sepsis is a poor prognostic sign. In addition, he will need ample fluids to fight shock and hypotension which can easily lead to congestive failure given his history. It is doubtful family will want to go forward with trach/PEG unless there were good reason to believe he would recover. . . Code Status: Full Code Plan == Code Status : FULL CODE == Decision Making: The patient is currently incapacitated to make his own health care decisions. will bring in the patient's completed advanced directive. She informs me that she is listed as the designated health care surrogate. If there is no advanced directive, would still be asked to serve as proxy decision-maker under the hierarchy of proxy's in the [place] statutes. == Goals of medical treatment: The patient's spouse and 2 of the daughters present want ongoing and full aggressive care for the time being. They are aware how ill the patient is want to see if he is able to turn the corner. As noted above they would want all resuscitation attempts tried at this point in time. On the other hand, family reports that the patient would not want to be maintained on life support if there is not hopeful for meaningful recovery. is even uncertain if patient would ever agree to ongoing hemodialysis. If the patient continues to decline in spite of aggressive care were there is no obvious improvement in spite of aggressive care want to reconsider goals. == Pain: As noted above, patient has a number of different pain syndromes. Currently pain is being controlled with a fentanyl drip. This appears to be working. No further recommendations for pain control at this time. ==Dyspnea: Dyspnea currently being controlled with mechanical ventilation. No further recommendations at this time. == Agitation: Agitation is probably secondary to a multifactorial delirium. Symptoms are currently being controlled with propofol. Hopefully as the patient 's underlying infection is being treated, propofol can be weaned and agitation will be less. No further recommendations at this time. == Encephalopathy: Also likely due to a multifactorial delirium. No evidence at this time to suggest there is been any kind of long lasting adverse effects from either hypoglycemia or hypotension or hypoxia.. No further recommendations at this time. == is bringing in a copy of the patient's advanced directive for us to scan into the electronic medical record. Has not arrived yet. == Palliative care will continue to follow to assist with symptom management and to further clarify goals of medical treatment as the clinical course evolves. . Attestation To help prompt me to consider important information that might be impacting today's encounter and assessment, information from prior notes written by myself or my colleagues may have been "brought forward" into today's note. My signature on this note, however, is an attestation that I personally performed the exam, history, and/or decision-making noted today, and, unless otherwise indicated, the interactions with patient, family, and staff as well as the review of records all occurred today. I also attest that the listed assessment and stated plan reflect my best clinical judgment today based on the combination of historical information, prior notes, and today's exam/ interactions. When time spent is documented, it refers only to time spent today by the signer, or if indicated, combined time spent today by collaborating physician/nurse practitioner. . Jameson Conklin MD July 24, 2016 12:15
[2016-07-24 12:35] LABS: APTT (PATIENT) 81.2 SEC (24.3-30.1)
--- NOTE | 2016-07-24 12:45 | HHI.IDPN ---
Subjective Subjective Remarks 71-year-old male admitted to the hospital for acute onset of diarrhea, chills and hypoglycemia. Patient apparently working in the yard July 18 and July 19. He was doing okay except for complaints on his lower extremity which is apparently chronic and related to his peripheral vascular disease. That night, the noted that the patient was breathing hard. She asked the patient and he stated that he is not short of breath. He has not complained of any sore throat, has not been congested, and has eaten without any problem. He has not had any urinary complaints. That night apparently the couldn't sleep, and around 4 :00 in the morning the patient woke up and stated that he wanted to go to the bathroom. Patient didn't make it, and had stool incontinence. He was noted to have some chills, and his blood sugars were low. He also had episode of vomiting. Patient was taken to the hospital, and since admission he is developed profound hypotension, and acidosis. He ended up getting intubated, and currently on Levophed and vasopressin. His white count is elevated, lactic acid elevated, and his creatinine is also quite elevated. His urine output has been low. Cultures done in the emergency room, are now reported as growing group A strep. Notes reviewed D/W RN Sedated on the vent Remains on pressors - levophed and vasopressin, dose lower On CVVHD On bicarb drip No new (+) BC Platelets continue to drop, no bleeding, DIC screen negative UO low Antibiotics Unasyn Clindamycin Vanco x 1 dose Lines LIJ TLC RIJ vascath Past Medical History Hypertension Diabetes mellitus Ischemic heart disease Hyperlipidemia History of deep venous thrombosis Peripheral vascular disease Chronic kidney disease Arthritis Past Surgical History Bowel surgery Appendectomy Allergies: Coded Allergies: No Known Allergies (Verified , 07/20/16) Objective . Vital Signs Date Time Temp Pulse Resp B/P Pulse Ox O2 Delivery O2 Flow Rate FiO2 07/24/16 11:17 96 55 07/24/16 10:00 109 07/24/16 09:30 55 07/24/16 08:14 93 45 07/24/16 08:00 112 07/24/16 08:00 98.7 112 20 113/55 96 07/24/16 08:00 45 07/24/16 06:00 111 07/24/16 04:00 40 07/24/16 04:00 97.9 108 20 114/55 97 07/24/16 04:00 106 07/24/16 03:46 94 40 07/24/16 02:00 99 07/24/16 00:45 98 40 07/24/16 00:00 45 07/24/16 00:00 97.6 99 20 129/59 99 07/24/16 00:00 106 07/23/16 22:00 106 07/23/16 20:00 113 07/23/16 20:00 97.6 113 21 114/54 99 07/23/16 20:00 45 07/23/16 19:46 96 45 07/23/16 18:00 113 07/23/16 16:45 45 07/23/16 16:00 104 07/23/16 16:00 97.5 104 24 135/58 97 07/23/16 16:00 45 07/23/16 15:45 94 45 07/23/16 14:00 95 07/23/16 07/23/16 07/24/16 15:00 23:00 07:00 Intake Total 2041 ml 1871 ml 2121 ml Output Total 100 ml 260.0 ml 75 ml Balance 1941 ml 1611.0 ml 2046 ml Intake IV Total 1658 ml 1871 ml 2121 ml Tube Feeding 383 ml Output Urine Total 100 ml 60 ml 75 ml Tube Feeding Residual Discard 0 ml 200.0 ml # Bowel Movements 1 0 0 . Laboratory Tests Test 07/23/16 07/24/16 06:45 04:25 White Blood Count 16.0 TH/MM3 11.6 TH/MM3 Red Blood Count 3.61 MIL/MM3 3.08 MIL/MM3 Hemoglobin 10.6 GM/DL 9.4 GM/DL Hematocrit 32.2 % 27.5 % Mean Corpuscular Volume 89.3 FL 89.3 FL Mean Corpuscular Hemoglobin 29.5 PG 30.6 PG Mean Corpuscular Hemoglobin 33.0 % 34.2 % Concent Red Cell Distribution Width 13.6 % 14.0 % Platelet Count 39 TH/MM3 37 TH/MM3 Mean Platelet Volume 10.6 FL 11.4 FL Neutrophils (%) (Auto) 96.3 % 95.3 % Lymphocytes (%) (Auto) 1.1 % 2.0 % Monocytes (%) (Auto) 2.1 % 2.4 % Eosinophils (%) (Auto) 0.1 % 0.0 % Basophils (%) (Auto) 0.4 % 0.3 % Neutrophils # (Auto) 15.4 TH/MM3 11.0 TH/MM3 Lymphocytes # (Auto) 0.2 TH/MM3 0.2 TH/MM3 Monocytes # (Auto) 0.3 TH/MM3 0.3 TH/MM3 Eosinophils # (Auto) 0.0 TH/MM3 0.0 TH/MM3 Basophils # (Auto) 0.1 TH/MM3 0.0 TH/MM3 CBC Comment AUTO DIFF AUTO DIFF Differential Total Cells 100 100 Counted Neutrophils % (Manual) 86 % 79 % Band Neutrophils % 13 % 13 % Lymphocytes % 1 % 5 % Neutrophils # (Manual) 15.8 TH/MM3 10.9 TH/MM3 Differential Comment FINAL DIFF FINAL DIFF MANUAL MANUAL Platelet Estimate LOW LOW Platelet Morphology Comment NORMAL ENLARGED Monocytes % 1 % Metamyelocytes 1 % Myelocytes 1 % Dohle Bodies PRESENT Laboratory Tests Test 07/22/16 07/22/16 07/23/16 07/23/16 13:10 21:00 06:45 20:15 Lactic Acid Level 7.1 mmol/L 3.5 mmol/L 1.8 mmol/L Sodium Level 138 MEQ/L 140 MEQ/L Potassium Level 2.8 MEQ/L 2.8 MEQ/L Chloride Level 103 MEQ/L 106 MEQ/L Carbon Dioxide Level 16.8 MEQ/L 16.8 MEQ/L Anion Gap 18 MEQ/L 17 MEQ/L Blood Urea Nitrogen 61 MG/DL 62 MG/DL Creatinine 5.43 MG/DL 4.65 MG/DL Estimat Glomerular Filtration 10 ML/MIN 13 ML/MIN Rate Random Glucose 155 MG/DL 215 MG/DL Calcium Level 5.7 MG/DL 6.3 MG/DL Protein Corrected Calcium 6.4 MG/DL 7.0 MG/DL Total Bilirubin 0.9 MG/DL Aspartate Amino Transf 46 U/L (AST/SGOT) Alanine Aminotransferase 42 U/L (ALT/SGPT) Alkaline Phosphatase 70 U/L Total Creatine Kinase 939 U/L Creatine Kinase MB 28.7 NG/ML Creatine Kinase MB % 3.1 % Total Protein 5.4 GM/DL 5.5 GM/DL Albumin 1.6 GM/DL Test 07/24/16 04:25 Sodium Level 142 MEQ/L Potassium Level 3.2 MEQ/L Chloride Level 106 MEQ/L Carbon Dioxide Level 16.1 MEQ/L Anion Gap 20 MEQ/L Blood Urea Nitrogen 63 MG/DL Creatinine 4.64 MG/DL Estimat Glomerular Filtration 13 ML/MIN Rate Random Glucose 224 MG/DL Lactic Acid Level 0.9 mmol/L Calcium Level 7.0 MG/DL Protein Corrected Calcium 7.9 MG/DL Total Bilirubin 0.7 MG/DL Aspartate Amino Transf 24 U/L (AST/SGOT) Alanine Aminotransferase 34 U/L (ALT/SGPT) Alkaline Phosphatase 60 U/L Total Protein 5.4 GM/DL Albumin 1.5 GM/DL Microbiology Date/Time Procedure Status Source Growth 07/21/16 14:30 Aerobic Blood Culture - Preliminary Resulted Blood Peripheral NO GROWTH IN 3 DAYS 07/21/16 14:30 Anaerobic Blood Culture - Preliminary Resulted Blood Peripheral NO GROWTH IN 3 DAYS 07/21/16 14:45 Aerobic Blood Culture - Preliminary Resulted Blood Peripheral NO GROWTH IN 3 DAYS 07/21/16 14:45 Anaerobic Blood Culture - Preliminary Resulted Blood Peripheral NO GROWTH IN 3 DAYS 07/21/16 18:25 Gram Stain - Final Complete Sputum Endotracheal 07/21/16 18:25 Sputum Culture - Final Complete Sputum Endotracheal NO GROWTH IN 48 HOURS. 07/22/16 03:57 Aerobic Blood Culture - Preliminary Resulted Blood Peripheral NO GROWTH IN 2 DAYS 07/22/16 03:57 Anaerobic Blood Culture - Preliminary Resulted Blood Peripheral NO GROWTH IN 2 DAYS Imaging Abdomen X-Ray 07/24/16 0749 Signed Impressions: Service Date/Time: July 08:28 - CONCLUSION: Air-filled bowel loops centrally but no obstruction seen. Uli Atkins MD Chest X-Ray 07/24/16 0600 Signed Impressions: Service Date/Time: July 05:36 - CONCLUSION: Unchanged bibasilar infiltrates. Omer Cheng Jr., MD Chest X-Ray 07/21/16 0000 Signed Impressions: Service Date/Time: Thursday, July 21, 2016 22:13 - CONCLUSION: Satisfactory central line positioning. Worsening aeration. [place] Guillermo MD Renal Ultrasound 07/20/16 0000 Signed Impressions: Service Date/Time: Wednesday, July 20, 2016 14:32 - CONCLUSION: 1. No acute findings. Renal ultrasound unremarkable. Bladder was not well-visualized. Jose Martin Valderrama MD Lower Extremity Ultrasound 07/20/16 Signed Impressions: Service Date/Time: Wednesday, July 20, 2016 14:39 - CONCLUSION: Negative exam with no evidence of deep venous thrombosis. Alonzo Bradshaw MD Head CT 07/20/16 Signed Impressions: Service Date/Time: Wednesday, July 20, 2016 18:21 - CONCLUSION: 1. No acute intracranial abnormalities. Mild mucosal thickening of the ethmoid air cells. Jose Martin Valderrama MD Chest CT 07/20/16 Signed Impressions: Service Date/Time: Wednesday, July 20, 2016 11:28 - CONCLUSION: 1. Chronic scarring in the lung bases left greater than right. 2. No focal consolidation. 3. Bilateral adrenal masses left greater than right most consistent with adenomas. 4. Nonspecific bowel gas pattern noted in the upper abdomen with air-fluid levels in the small bowel. Alonzo Bradshaw MD Abdomen/Pelvis CT 07/20/16 Signed Impressions: Service Date/Time: Wednesday, July 20, 2016 18:24 - CONCLUSION: 1. Lower abdominal ventral midline hernia containing loop of small bowel. Small bowel is mildly distended somewhat diffusely with fluid and air. Cannot exclude a low grade partial bowel obstruction in the area of herniation. 2. No abnormal fluid collections to suggest abscess. No free air or free fluid. 3. Basilar and dependent lung consolidation, left greater than right. Pneumonia could have this appearance. Small left effusion. 4. NG tip in stomach. Inferior vena cava filter present. Connelly catheter in bladder. Jose Martin Valderrama MD Physical Exam GENERAL: sedated and intubated, NAD SKIN: Cool and dry. No generalized rash, no ecchymosis. HEAD: Atraumatic. Normocephalic. No temporal or scalp tenderness. EYES: [place] conjunctivae. Pupils equal round and reactive. Less scleral edema. No scleral icterus. No injection or drainage. ENT: Nose without bleeding, or purulent drainage. Endotracheal tube is in the mouth, has moist mucosa. NECK: Trachea midline. No JVD or lymphadenopathy. Supple, nontender, no meningeal signs. CARDIOVASCULAR: Regular rate and rhythm without murmurs, gallops, or rubs. Tachycardic RESPIRATORY: Breath sounds equal bilaterally. Has scattered rales. Decreased breath sounds at the bases. GASTROINTESTINAL: Abdomen soft, globular, bowel sounds are present and normoactive. Mildly distended, no reaction to palpation. No hepato- splenomegaly, or palpable masses. MUSCULOSKELETAL: Extremities without clubbing, cyanosis, or edema. . Feet warm. No joint effusion, or edema noted. NEUROLOGICAL: Sedated on the vent PSYCH: Unable to assess LINE: LIJ and RIJ lines with no evidence of infection : Connelly in place, urine looks clear Assessment & Plan Remarks IMPRESSION Group A Strep sepsis, with shock, MOSF, present on admission, source? - ?primary bacteremia Respiratory failure Renal failure, on CVVHD Thrombocytopenia due to sepsis, no DIC Known DM, HTN, PVD, CAD RECOMMENDATION Follow C/S Continue IV Unasyn Stop Clindamycin BP support On CVVHD Monitor progress Remains critically ill D/W Ceci Caicedo MD July 24, 2016 12:45
[2016-07-24] MEDS: fentaNYL DRIP 250 ML IV SCH ×2 (13:02→23:36)
[2016-07-24 21:34] LABS: BICARBONATE 17.7 MEQ/L (21.0-32.0)
[2016-07-25] VITALS (18 sets, daily range): BP systolic 111–138; BP diastolic 50–65; PULSE 83–105; RESP 20; TEMP 94.8–99.1; O2SAT 93–100
[2016-07-25] MEDS: CALCIUM GLUCONATE INJ 2 GM in SODIUM CHLORIDE 0.9% INJ 100 ML IV SCH ×4 (00:03→18:00)
[2016-07-25] MEDS: AMPICILLIN-SULBACTAM INJ 1,500 MG in SODIUM CHLORIDE 0.9% INJ 100 ML IV SCH ×3 (00:58→17:38)
[2016-07-25] MEDS: INSULIN NovoLIN REGULAR SUPPLEMENTAL SCALE SQ SCH ×4 (01:00→18:34)
[2016-07-25] MEDS: CALCIUM GLUCONATE IV SCH ×9 (01:47→22:23)
[2016-07-25] MEDS: SODIUM CHLOR 0.9% IV SCH ×9 (01:47→22:23)
[2016-07-25] MEDS: PROPOFOL 1000 MG/100 ML INJ 100 ML IV SCH ×5 (03:03→19:47)
[2016-07-25] MEDS: CHLORHEXIDINE GLUCONATE 2 % 1 PACK (2 CLOTHS) TOP SCH (03:42)
[2016-07-25] MEDS: HYDROCORTISONE SOD SUCCINATE 100 MG VIAL IV PUSH SCH ×3 (05:10→20:59)
[2016-07-25] MEDS: CLINDAMYCIN INJ 900 MG in SODIUM CHLORIDE 0.9% INJ 100 ML IV SCH ×4 (05:10→22:50)
[2016-07-25 05:23] LABS: BLOOD GAS BASE EXCESS -8.6 mmol/L (-2-2); BLOOD GAS CARBOXYHEMOGLOBIN 0.8 % (0-4); BLOOD GAS HCO3 16 mmol/L (22-26); BLOOD GAS METHEMOGLOBIN 1.6 % (0-2); BLOOD GAS O2 HGB SATURATION 95 % (90-100); BLOOD GAS OXYGEN CONTENT 12.4 Vol % (12.0-20.0); BLOOD GAS PCO2 33 mmHg (38-42); BLOOD GAS PO2 103 mmHg (61-120); BLOOD GAS TOTAL HGB 9.2 G/DL (12.0-16.0); TEMP CORR TO 98.6
[2016-07-25 05:25] LABS: CRITICAL VALUE YES; DRAW SITE ALINE; FIO2 55 %; OXYGEN DEVICE VENTILATOR; STAT NO; VENT SETTINGS AC/20/550/PEEP10
[2016-07-25 06:08] LABS: AUTOMATED NEUTROPHIL # 8.4 TH/MM3 (1.8-7.7); BASOPHIL % 0.4 % (0.0-2.0); EOSINOPHIL % 0.1 % (0.0-4.0); HEMATOCRIT 24.5 % (39.0-51.0); LYMPH % 4.3 % (9.0-44.0); LYMPHOCYTE # 0.4 TH/MM3 (1.0-4.8); MEAN CELL VOLUME 88.7 FL (80.0-100.0); MEAN CORPUSCULAR HGB CONC 34.9 % (32.0-36.0); MONO % 2.9 % (0.0-8.0); NEUT % 92.3 % (16.0-70.0); PLATELET COUNT 37 TH/MM3 (150-450); RED BLOOD COUNT 2.76 MIL/MM3 (4.50-5.90); RED CELL DISTRIBUTION WIDTH 13.9 % (11.6-17.2); WHITE BLOOD COUNT 9.1 TH/MM3 (4.0-11.0)
[2016-07-25 06:13] LABS: HEMO FLAGS AUTO DIFF
[2016-07-25 06:21] LABS: APTT (PATIENT) 74.5 SEC (24.3-30.1)
[2016-07-25 06:41] LABS: ALKALINE PHOSPHATASE 58 U/L (45-117); ALT (GPT) 30 U/L (12-78); ANION GAP 16 MEQ/L (5-15); AST (GOT) 21 U/L (15-37); BICARBONATE 18.7 MEQ/L (21.0-32.0); BLOOD UREA NITROGEN 62 MG/DL (7-18); CHLORIDE 108 MEQ/L (98-107); GLOMERULAR FILTRATION RATE 17 ML/MIN (>89); SODIUM (NA) 143 MEQ/L (136-145); TOTAL BILIRUBIN ADULT 0.7 MG/DL (0.2-1.0)
[2016-07-25 07:07] LABS: POTASSIUM 2.8 MEQ/L (3.5-5.1)
[2016-07-25] MEDS: CHLORHEXIDINE 0.12% (ORAL KIT) 15 ML CUP MT SCH ×2 (08:00→19:47)
[2016-07-25] MEDS: PANTOPRAZOLE SODIUM 40 MG VIAL IV SCH (08:11)
[2016-07-25] MEDS: DOCUSATE SODIUM 100 MG CAP PO SCH ×2 (08:11→20:59)
[2016-07-25] MEDS: SENNOSIDES SYRUP 8.8 MG/5 ML CUP OG-TUBE SCH (08:11)
[2016-07-25] MEDS: SODIUM CHLORIDE 0.9% FLUSH 10 ML FLUSH IVF SCH (08:12)
[2016-07-25] MEDS: SODIUM CHLORIDE 0.9% FLUSH 10 ML FLUSH IV FLUSH SCH ×2 (08:12→21:00)
[2016-07-25] MEDS: fentaNYL DRIP 250 ML IV SCH (08:12)
[2016-07-25] MEDS: ASPIRIN 81 MG CHEW TAB CHEW SCH (08:13)
[2016-07-25 08:46] LABS: BANDS 14 % (0-6); DOHLE BODIES PRESENT (NONE SEEN); METAMYELOCYTES 1 % (0-1); OVALOCYTES 1+ (NORMAL); PLATELET ESTIMATE SMEAR LOW (NORMAL); PLATELET MORPHOLOGY NORMAL (NORMAL); POLYS (SEG NEUTROPHILS) 73 % (16-70); TEARDROP RBCS 1+ (NORMAL); TOXIC GRANULATION 2+ (NORMAL); WBC DIFF SAMPLE 100
[2016-07-25 08:47] LABS: SCAN/DIFF FINAL DIFF MANUAL
[2016-07-25] MEDS: SODIUM BICARBONATE 8.4% INJ 150 MEQ in WATER STERILE FOR INJ 850 ML IV SCH ×2 (09:35→17:25)
[2016-07-25 10:55] LABS: CALCIUM-PROTEIN CORRECTED 9.2 MG/DL (8.5-10.1)
--- NOTE | 2016-07-25 12:32 | HHI.IDPN ---
Subjective Subjective Remarks 71-year-old male admitted to the hospital for acute onset of diarrhea, chills and hypoglycemia. Patient apparently working in the yard July 18 and July 19. He was doing okay except for complaints on his lower extremity which is apparently chronic and related to his peripheral vascular disease. That night, the noted that the patient was breathing hard. She asked the patient and he stated that he is not short of breath. He has not complained of any sore throat, has not been congested, and has eaten without any problem. He has not had any urinary complaints. That night apparently the couldn't sleep, and around 4 :00 in the morning the patient woke up and stated that he wanted to go to the bathroom. Patient didn't make it, and had stool incontinence. He was noted to have some chills, and his blood sugars were low. He also had episode of vomiting. Patient was taken to the hospital, and since admission he is developed profound hypotension, and acidosis. He ended up getting intubated, and currently on Levophed and vasopressin. His white count is elevated, lactic acid elevated, and his creatinine is also quite elevated. His urine output has been low. Cultures done in the emergency room, are now reported as growing group A strep. Notes reviewed D/W RN Sedated on the vent Remains on pressors - levophed and vasopressin Temps ok, currently temp low and he is on warming blanket On CVVHD On bicarb drip No new (+) BC Platelets remain at 37K No active bleeding UO low Antibiotics Unasyn Lines LIJ TLC RIJ vascath Past Medical History Hypertension Diabetes mellitus Ischemic heart disease Hyperlipidemia History of deep venous thrombosis Peripheral vascular disease Chronic kidney disease Arthritis Past Surgical History Bowel surgery Appendectomy Allergies: Coded Allergies: No Known Allergies (Verified , 07/20/16) Objective . Vital Signs Date Time Temp Pulse Resp B/P Pulse Ox O2 Delivery O2 Flow Rate FiO2 07/25/16 12:00 60 07/25/16 12:00 103 07/25/16 12:00 98.2 103 20 138/65 100 07/25/16 10:00 105 07/25/16 09:25 95 45 07/25/16 08:00 90 07/25/16 08:00 97.0 93 20 118/51 95 07/25/16 08:00 60 07/25/16 06:00 88 07/25/16 06:00 91 113/50 07/25/16 04:37 99 55 07/25/16 04:00 60 07/25/16 04:00 94.8 83 20 133/55 99 07/25/16 04:00 86 07/25/16 02:00 85 07/25/16 00:03 100 60 07/25/16 00:00 97.6 87 20 133/56 99 07/25/16 00:00 60 07/25/16 00:00 87 07/24/16 22:00 89 07/24/16 20:54 100 65 07/24/16 20:00 89 07/24/16 20:00 65 07/24/16 20:00 97.4 93 20 128/57 99 07/24/16 18:00 91 114/51 07/24/16 18:00 93 07/24/16 17:00 91 90/45 07/24/16 16:09 99 35 07/24/16 16:00 97.9 94 20 114/51 98 07/24/16 16:00 94 07/24/16 16:00 65 07/24/16 14:00 99 07/24/16 12:41 90 65 07/24/16 07/24/16 07/25/16 15:00 23:00 07:00 Intake Total 2329 ml 2156 ml 1982 ml Output Total 50 ml 400.0 ml 50 ml Balance 2279 ml 1756.0 ml 1932 ml Intake IV Total 2329 ml 2156 ml 1982 ml Tube Feeding 0 ml 0 ml Output Urine Total 50 ml 50 ml 50 ml Tube Feeding Residual Discard 350.0 ml # Bowel Movements 1 0 0 . Laboratory Tests Test 07/24/16 07/25/16 04:25 06:00 White Blood Count 11.6 TH/MM3 9.1 TH/MM3 Red Blood Count 3.08 MIL/MM3 2.76 MIL/MM3 Hemoglobin 9.4 GM/DL 8.6 GM/DL Hematocrit 27.5 % 24.5 % Mean Corpuscular Volume 89.3 FL 88.7 FL Mean Corpuscular Hemoglobin 30.6 PG 31.0 PG Mean Corpuscular Hemoglobin 34.2 % 34.9 % Concent Red Cell Distribution Width 14.0 % 13.9 % Platelet Count 37 TH/MM3 37 TH/MM3 Mean Platelet Volume 11.4 FL 10.4 FL Neutrophils (%) (Auto) 95.3 % 92.3 % Lymphocytes (%) (Auto) 2.0 % 4.3 % Monocytes (%) (Auto) 2.4 % 2.9 % Eosinophils (%) (Auto) 0.0 % 0.1 % Basophils (%) (Auto) 0.3 % 0.4 % Neutrophils # (Auto) 11.0 TH/MM3 8.4 TH/MM3 Lymphocytes # (Auto) 0.2 TH/MM3 0.4 TH/MM3 Monocytes # (Auto) 0.3 TH/MM3 0.3 TH/MM3 Eosinophils # (Auto) 0.0 TH/MM3 0.0 TH/MM3 Basophils # (Auto) 0.0 TH/MM3 0.0 TH/MM3 CBC Comment AUTO DIFF AUTO DIFF Differential Total Cells 100 100 Counted Neutrophils % (Manual) 79 % 73 % Band Neutrophils % 13 % 14 % Lymphocytes % 5 % 11 % Monocytes % 1 % 1 % Neutrophils # (Manual) 10.9 TH/MM3 8.0 TH/MM3 Metamyelocytes 1 % 1 % Myelocytes 1 % Differential Comment FINAL DIFF FINAL DIFF MANUAL MANUAL Dohle Bodies PRESENT PRESENT Platelet Estimate LOW LOW Platelet Morphology Comment ENLARGED NORMAL Toxic Granulation 2+ Tear Drop Cells 1+ Ovalocytes 1+ Laboratory Tests Test 07/23/16 07/24/16 07/24/16 07/25/16 20:15 04:25 20:30 06:00 Sodium Level 140 MEQ/L 142 MEQ/L 143 MEQ/L 143 MEQ/L Potassium Level 2.8 MEQ/L 3.2 MEQ/L 3.0 MEQ/L 2.8 MEQ/L Chloride Level 106 MEQ/L 106 MEQ/L 107 MEQ/L 108 MEQ/L Carbon Dioxide Level 16.8 MEQ/L 16.1 MEQ/L 17.7 MEQ/L 18.7 MEQ/L Anion Gap 17 MEQ/L 20 MEQ/L 18 MEQ/L 16 MEQ/L Blood Urea Nitrogen 62 MG/DL 63 MG/DL 64 MG/DL 62 MG/DL Creatinine 4.65 MG/DL 4.64 MG/DL 4.06 MG/DL 3.61 MG/DL Estimat Glomerular Filtration 13 ML/MIN 13 ML/MIN 15 ML/MIN 17 ML/MIN Rate Random Glucose 215 MG/DL 224 MG/DL 231 MG/DL 210 MG/DL Calcium Level 6.3 MG/DL 7.0 MG/DL 7.6 MG/DL 8.1 MG/DL Protein Corrected Calcium 7.0 MG/DL 7.9 MG/DL 9.2 MG/DL Total Protein 5.5 GM/DL 5.4 GM/DL 5.3 GM/DL Lactic Acid Level 0.9 mmol/L 0.7 mmol/L Total Bilirubin 0.7 MG/DL 0.7 MG/DL Aspartate Amino Transf 24 U/L 21 U/L (AST/SGOT) Alanine Aminotransferase 34 U/L 30 U/L (ALT/SGPT) Alkaline Phosphatase 60 U/L 58 U/L Albumin 1.5 GM/DL 1.4 GM/DL Imaging Abdomen X-Ray 07/24/16 0749 Signed Impressions: Service Date/Time: July 08:28 - CONCLUSION: Air-filled bowel loops centrally but no obstruction seen. Uli Atkins MD Chest X-Ray 07/24/16 0600 Signed Impressions: Service Date/Time: July 05:36 - CONCLUSION: Unchanged bibasilar infiltrates. Omer Cheng Jr., MD Chest X-Ray 07/21/16 0000 Signed Impressions: Service Date/Time: Thursday, July 21, 2016 22:13 - CONCLUSION: Satisfactory central line positioning. Worsening aeration. [place] Guillermo MD Renal Ultrasound 07/20/16 0000 Signed Impressions: Service Date/Time: Wednesday, July 20, 2016 14:32 - CONCLUSION: 1. No acute findings. Renal ultrasound unremarkable. Bladder was not well-visualized. Jose Martin Valderrama MD Lower Extremity Ultrasound 07/20/16 0000 Signed Impressions: Service Date/Time: Wednesday, July 20, 2016 14:39 - CONCLUSION: Negative exam with no evidence of deep venous thrombosis. Alonzo Bradshaw MD Head CT 07/20/16 0000 Signed Impressions: Service Date/Time: Wednesday, July 20, 2016 18:21 - CONCLUSION: 1. No acute intracranial abnormalities. Mild mucosal thickening of the ethmoid air cells. Jose Martin Valderrama MD Chest CT 07/20/16 0000 Signed Impressions: Service Date/Time: Wednesday, July 20, 2016 11:28 - CONCLUSION: 1. Chronic scarring in the lung bases left greater than right. 2. No focal consolidation. 3. Bilateral adrenal masses left greater than right most consistent with adenomas. 4. Nonspecific bowel gas pattern noted in the upper abdomen with air-fluid levels in the small bowel. Alonzo Bradshaw MD Abdomen/Pelvis CT 07/20/16 0000 Signed Impressions: Service Date/Time: Wednesday, July 20, 2016 18:24 - CONCLUSION: 1. Lower abdominal ventral midline hernia containing loop of small bowel. Small bowel is mildly distended somewhat diffusely with fluid and air. Cannot exclude a low grade partial bowel obstruction in the area of herniation. 2. No abnormal fluid collections to suggest abscess. No free air or free fluid. 3. Basilar and dependent lung consolidation, left greater than right. Pneumonia could have this appearance. Small left effusion. 4. NG tip in stomach. Inferior vena cava filter present. Connelly catheter in bladder. Jose Martin Valderrama MD Physical Exam GENERAL: sedated and intubated, NAD SKIN: Cool and dry. No generalized rash, no mottling. HEAD: Atraumatic. Normocephalic. No temporal or scalp tenderness. EYES: [place] conjunctivae. Pupils equal round and reactive. Less scleral edema. No scleral icterus. No injection or drainage. ENT: Nose without bleeding, or purulent drainage. Endotracheal tube is in the mouth, has moist mucosa. NECK: Trachea midline. No JVD or lymphadenopathy. Supple, nontender, no meningeal signs. CARDIOVASCULAR: Regular rate and rhythm without murmurs, gallops, or rubs. Tachycardic RESPIRATORY: Breath sounds equal bilaterally. Has scattered rales. Decreased breath sounds at the bases. GASTROINTESTINAL: Abdomen soft, globular, bowel sounds are present and normoactive. Mildly distended, no reaction to palpation. No hepato- splenomegaly, or palpable masses. MUSCULOSKELETAL: Extremities without clubbing, cyanosis, or edema. . Feet warm. No joint effusion, or edema noted. NEUROLOGICAL: Sedated on the vent PSYCH: Unable to assess LINE: LIJ and RIJ lines with no evidence of infection : Connelly in place, urine looks clear Assessment & Plan Remarks IMPRESSION Group A Strep sepsis, with shock, MOSF, present on admission, source? - ?primary bacteremia Respiratory failure Renal failure, on CVVHD Thrombocytopenia due to sepsis, no DIC Known DM, HTN, PVD, CAD RECOMMENDATION Follow C/S Continue IV Unasyn BP support On CVVHD Monitor progress Remains critically ill D/W RN Other ID MD covering me 07/26-07/28 Ceci Niño MD July 25, 2016 12:32
--- NOTE | 2016-07-25 12:39 | HHI.HCPN ---
Reason for visit a. To assist with evaluation and management of symptoms including: dyspnea; agitation; pain; encephalopathy b. To assist medical decision maker(s) with: better understanding of current medical conditions; weighing benefits/burdens of medical treatment options; making medical treatment decisions. . Subjective/Interval History INTERVAL NOTE Mr. Lemus remains sedated, minimally responsive, intubated, mechanically ventilated in the SICU. Temp was down to around 95 last night and he was started on a warming blanket. He was not given a "sedation vacation" this AM. He remain on two pressors. Levophed rate down to 5, however ans systolic BP in 130s at time of my visit. CCRT continues. Still acidotic and requiring a bicarb drip. Tube feeds stopped last night due to residuals of about 400cc. No evidence of pain on current regimen per nurses. Temp 94.8 - 98.2 BPs 90-138/ 45- 65; HR 103; 02 sats 95-100 on 45-60% FI02. Urine output 150 cc. Bowels are moving. WBC 9.1; globulin 8.6; platelets 37 BUN 62; creatinine 3.61; GFR 17 Anion gap 20; Lactic acid 0.9 Ca corrected 9.2 Alb 1.4 ABG 7.32/33/103/16/-8.6 CXR --> no new study today . Family/friend interactions No family at bedside. . Advance Directives Living Will: Completed, but not made available Health Care Surrogate: Completed, but not made available Durable Power of Intern Retail: Never completed Advance Directive Specifics Date completed: will bring in the advance directive. Date of completion is unknown at this time. . Health Care Surrogate(s): will bring in a copy of the advance directive. She reports that she is listed as the designated health care surrogate. . Documented care wishes: will bring in a copy of the advance directive. At this point we do not have any written documentation of the patient's health care goals/preferences. . Objective Vital Signs Date Time Temp Pulse Resp B/P Pulse Ox O2 Delivery O2 Flow Rate FiO2 07/25/16 12:00 60 07/25/16 12:00 103 07/25/16 12:00 98.2 103 20 138/65 100 07/25/16 10:00 105 07/25/16 09:25 95 45 07/25/16 08:00 90 07/25/16 08:00 97.0 93 20 118/51 95 07/25/16 08:00 60 07/25/16 06:00 88 07/25/16 06:00 91 113/50 07/25/16 04:37 99 55 07/25/16 04:00 60 07/25/16 04:00 94.8 83 20 133/55 99 07/25/16 04:00 86 07/25/16 02:00 85 07/25/16 00:03 100 60 07/25/16 00:00 97.6 87 20 133/56 99 07/25/16 00:00 60 07/25/16 00:00 87 07/24/16 22:00 89 07/24/16 20:54 100 65 07/24/16 20:00 89 07/24/16 20:00 65 07/24/16 20:00 97.4 93 20 128/57 99 07/24/16 18:00 91 114/51 07/24/16 18:00 93 07/24/16 17:00 91 90/45 07/24/16 16:09 99 35 07/24/16 16:00 97.9 94 20 114/51 98 07/24/16 16:00 94 07/24/16 16:00 65 07/24/16 14:00 99 07/24/16 12:41 90 65 07/24/16 12:30 65 Intake & Output 07/25/16 07/25/16 06:59 18:59 Intake Total 4138 ml Output Total 450.0 ml Balance 3688.0 ml Intake IV Total 4138 ml Tube Feeding 0 ml Output Urine Total 100 ml Tube Feeding Residual Discard 350.0 ml # Bowel Movements 0 Approximately 10 L total taken off since CCRT was started. . Physical Exam CONSTITUTIONAL/GENERAL: This is an overweight male intubated/mechanically ventilated/sedated in a surgical intensive care unit bed. He does not awaken to voice or examination. No obvious distress. TUBES/LINES/DRAINS: Orotracheal tube; orogastric tube; left internal jugular central line; vas-cath right internal jugular; peripheral IV; SCDs; Connelly catheter; warming blanket SKIN: No jaundice, rashes, or lesions. No wounds seen anteriorly. Skin temperature warm but not diaphoretic. EYES: Pupils equal and round. Unable to assess extraocular motions. No scleral icterus. No injection or drainage. Fundi not examined. ENT: Unable to assess hearing. Nose without bleeding or purulent drainage. NECK: Trachea midline. CARDIOVASCULAR: Tachycardic; Regular rhythm without murmurs, gallops, or rubs. No JVD. RESPIRATORY/CHEST: Symmetric, unlabored respirations. Clear to auscultation. Breath sounds equal bilaterally but air movement diminished at bases. No wheezes , rales, or rhonchi. GASTROINTESTINAL: Abdomen soft, non-tender, slightly distended. No hepato- splenomegaly, or palpable masses. GENITOURINARY: Without palpable bladder distension. Connelly catheter in place. MUSCULOSKELETAL: Extremities without clubbing, cyanosis, or edema. No mottling. NEUROLOGICAL: Sedateddoes not stir to voice or examination. No spontaneous movements. Withdraws to noxious stimulus. PSYCHIATRIC: Unable to assess due to sedation.. . Diagnostic Tests Laboratory Laboratory Tests Test 07/22/16 07/22/16 07/22/16 07/22/16 13:10 16:00 17:00 17:01 Lactic Acid Level 7.1 mmol/L (0.4-2.0) Activated Partial GREATER THAN 86.2 SEC 119.6 SEC Thromboplast Time 153.4 SEC (24.3-30.1) (24.3-30.1) (24.3-30.1) Test 07/22/16 07/22/16 07/22/16 07/22/16 17:40 18:00 18:01 19:00 Heparin-Induced Platelet Ab NEGATIVE (Quiana) (NEGATIVE) HIPA Patient Optical Density 0.167 O.D. (0.000-0.300) Activated Partial 68.4 SEC 73.5 SEC 63.2 SEC Thromboplast Time (24.3-30.1) (24.3-30.1) (24.3-30.1) Test 07/22/16 07/22/16 07/22/16 07/22/16 19:01 21:00 21:02 23:00 Activated Partial SEC 64.1 SEC 64.8 SEC Thromboplast Time (24.3-30.1) (24.3-30.1) (24.3-30.1) Prothrombin Time 34.3 SEC (9.8-11.6) Prothromb Time International 3.0 RATIO Ratio Fibrinogen 702 mg/dL (181-393) Lactic Acid Level 3.5 mmol/L (0.4-2.0) Blood Gas Puncture Site RENAE Blood Gas Patient Temperature 98.6 Blood Gas HCO3 18 mmol/L (22-26) Blood Gas Base Excess -5.5 mmol/L (-2-2) Blood Gas Oxygen Saturation 92 % (90-100) Arterial Blood pH 7.42 (7.380-7.420) Arterial Blood Partial 28 mmHg (38-42) Pressure CO2 Arterial Blood Partial 77 mmHg Pressure O2 (61-120) Arterial Blood Oxygen Content 14.6 Vol % (12.0-20.0) Arterial Blood 0.9 % (0-4) Carboxyhemoglobin Arterial Blood Methemoglobin 1.5 % (0-2) Blood Gas Hemoglobin 11.3 G/DL (12.0-16.0) Oxygen Delivery Device VENTILATOR Blood Gas Ventilator Setting AC/24/550/PEEP8 Blood Gas Inspired Oxygen 45 % Test 07/23/16 07/23/16 07/23/16 07/23/16 03:00 03:05 06:45 10:50 Activated Partial 68.9 SEC 68.2 SEC 70.9 SEC 73.1 SEC Thromboplast Time (24.3-30.1) (24.3-30.1) (24.3-30.1) (24.3-30.1) White Blood Count 16.0 TH/MM3 (4.0-11.0) Red Blood Count 3.61 MIL/MM3 (4.50-5.90) Hemoglobin 10.6 GM/DL (13.0-17.0) Hematocrit 32.2 % (39.0-51.0) Mean Corpuscular Volume 89.3 FL (80.0-100.0) Mean Corpuscular Hemoglobin 29.5 PG (27.0-34.0) Mean Corpuscular Hemoglobin 33.0 % Concent (32.0-36.0) Red Cell Distribution Width 13.6 % (11.6-17.2) Platelet Count 39 TH/MM3 (150-450) Mean Platelet Volume 10.6 FL (7.0-11.0) Neutrophils (%) (Auto) 96.3 % (16.0-70.0) Lymphocytes (%) (Auto) 1.1 % (9.0-44.0) Monocytes (%) (Auto) 2.1 % (0.0-8.0) Eosinophils (%) (Auto) 0.1 % (0.0-4.0) Basophils (%) (Auto) 0.4 % (0.0-2.0) Neutrophils # (Auto) 15.4 TH/MM3 (1.8-7.7) Lymphocytes # (Auto) 0.2 TH/MM3 (1.0-4.8) Monocytes # (Auto) 0.3 TH/MM3 (0-0.9) Eosinophils # (Auto) 0.0 TH/MM3 (0-0.4) Basophils # (Auto) 0.1 TH/MM3 (0-0.2) CBC Comment AUTO DIFF Differential Total Cells 100 Counted Neutrophils % (Manual) 86 % (16-70) Band Neutrophils % 13 % (0-6) Lymphocytes % 1 % (9-44) Neutrophils # (Manual) 15.8 TH/MM3 (1.8-7.7) Differential Comment FINAL DIFF MANUAL Platelet Estimate LOW (NORMAL) Platelet Morphology Comment NORMAL (NORMAL) Sodium Level 138 MEQ/L (136-145) Potassium Level 2.8 MEQ/L (3.5-5.1) Chloride Level 103 MEQ/L (98-107) Carbon Dioxide Level 16.8 MEQ/L (21.0-32.0) Anion Gap 18 MEQ/L (5-15) Blood Urea Nitrogen 61 MG/DL (7-18) Creatinine 5.43 MG/DL (0.60-1.30) Estimat Glomerular Filtration 10 ML/MIN (>89) Rate Random Glucose 155 MG/DL (74-106) Lactic Acid Level 1.8 mmol/L (0.4-2.0) Calcium Level 5.7 MG/DL (8.5-10.1) Protein Corrected Calcium 6.4 MG/DL (8.5-10.1) Total Bilirubin 0.9 MG/DL (0.2-1.0) Aspartate Amino Transf 46 U/L (15-37) (AST/SGOT) Alanine Aminotransferase 42 U/L (12-78) (ALT/SGPT) Alkaline Phosphatase 70 U/L (45-117) Total Creatine Kinase 939 U/L (39-308) Creatine Kinase MB 28.7 NG/ML (0.5-3.6) Creatine Kinase MB % 3.1 % (0.0-4.0) Total Protein 5.4 GM/DL (6.4-8.2) Albumin 1.6 GM/DL (3.4-5.0) Random Vancomycin Level 26.3 COMMENT Test 07/23/16 07/23/16 07/23/16 07/23/16 14:35 16:20 17:00 18:23 Activated Partial 78.8 SEC 80.0 SEC 77.6 SEC Thromboplast Time (24.3-30.1) (24.3-30.1) (24.3-30.1) Blood Gas Puncture Site ART LINE Blood Gas Patient Temperature 98.6 Blood Gas HCO3 14 mmol/L (22-26) Blood Gas Base Excess -11.2 mmol/L (-2-2) Blood Gas Oxygen Saturation 91 % (90-100) Arterial Blood pH 7.31 (7.380-7.420) Arterial Blood Partial 28 mmHg (38-42) Pressure CO2 Arterial Blood Partial 80 mmHg Pressure O2 (61-120) Arterial Blood Oxygen Content 13.6 Vol % (12.0-20.0) Arterial Blood 0.8 % (0-4) Carboxyhemoglobin Arterial Blood Methemoglobin 1.5 % (0-2) Blood Gas Hemoglobin 10.6 G/DL (12.0-16.0) Oxygen Delivery Device VENTILATOR Blood Gas Ventilator Setting AC/24/550/PEEP8 Blood Gas Inspired Oxygen 45 % Test 07/23/16 07/23/16 07/24/16 07/24/16 20:15 23:05 04:25 09:10 Sodium Level 140 MEQ/L 142 MEQ/L (136-145) (136-145) Potassium Level 2.8 MEQ/L 3.2 MEQ/L (3.5-5.1) (3.5-5.1) Chloride Level 106 MEQ/L 106 MEQ/L (98-107) (98-107) Carbon Dioxide Level 16.8 MEQ/L 16.1 MEQ/L (21.0-32.0) (21.0-32.0) Anion Gap 17 MEQ/L (5-15) 20 MEQ/L (5-15) Blood Urea Nitrogen 62 MG/DL (7-18) 63 MG/DL (7-18) Creatinine 4.65 MG/DL 4.64 MG/DL (0.60-1.30) (0.60-1.30) Estimat Glomerular Filtration 13 ML/MIN (>89) 13 ML/MIN (>89) Rate Random Glucose 215 MG/DL 224 MG/DL (74-106) (74-106) Calcium Level 6.3 MG/DL 7.0 MG/DL (8.5-10.1) (8.5-10.1) Protein Corrected Calcium 7.0 MG/DL 7.9 MG/DL (8.5-10.1) (8.5-10.1) Total Protein 5.5 GM/DL 5.4 GM/DL (6.4-8.2) (6.4-8.2) Activated Partial 78.3 SEC 85.7 SEC 85.8 SEC Thromboplast Time (24.3-30.1) (24.3-30.1) (24.3-30.1) White Blood Count 11.6 TH/MM3 (4.0-11.0) Red Blood Count 3.08 MIL/MM3 (4.50-5.90) Hemoglobin 9.4 GM/DL (13.0-17.0) Hematocrit 27.5 % (39.0-51.0) Mean Corpuscular Volume 89.3 FL (80.0-100.0) Mean Corpuscular Hemoglobin 30.6 PG (27.0-34.0) Mean Corpuscular Hemoglobin 34.2 % Concent (32.0-36.0) Red Cell Distribution Width 14.0 % (11.6-17.2) Platelet Count 37 TH/MM3 (150-450) Mean Platelet Volume 11.4 FL (7.0-11.0) Neutrophils (%) (Auto) 95.3 % (16.0-70.0) Lymphocytes (%) (Auto) 2.0 % (9.0-44.0) Monocytes (%) (Auto) 2.4 % (0.0-8.0) Eosinophils (%) (Auto) 0.0 % (0.0-4.0) Basophils (%) (Auto) 0.3 % (0.0-2.0) Neutrophils # (Auto) 11.0 TH/MM3 (1.8-7.7) Lymphocytes # (Auto) 0.2 TH/MM3 (1.0-4.8) Monocytes # (Auto) 0.3 TH/MM3 (0-0.9) Eosinophils # (Auto) 0.0 TH/MM3 (0-0.4) Basophils # (Auto) 0.0 TH/MM3 (0-0.2) CBC Comment AUTO DIFF Differential Total Cells 100 Counted Neutrophils % (Manual) 79 % (16-70) Band Neutrophils % 13 % (0-6) Lymphocytes % 5 % (9-44) Monocytes % 1 % (0-8) Neutrophils # (Manual) 10.9 TH/MM3 (1.8-7.7) Metamyelocytes 1 % (0-1) Myelocytes 1 % (0-0) Differential Comment FINAL DIFF MANUAL Dohle Bodies PRESENT (NONE SEEN) Platelet Estimate LOW (NORMAL) Platelet Morphology Comment ENLARGED (NORMAL) Lactic Acid Level 0.9 mmol/L (0.4-2.0) Total Bilirubin 0.7 MG/DL (0.2-1.0) Aspartate Amino Transf 24 U/L (15-37) (AST/SGOT) Alanine Aminotransferase 34 U/L (12-78) (ALT/SGPT) Alkaline Phosphatase 60 U/L (45-117) Albumin 1.5 GM/DL (3.4-5.0) Fibrinogen 857 mg/dL (181-393) Test 07/24/16 07/24/16 07/24/16 07/25/16 09:48 11:03 20:30 05:13 Blood Gas Puncture Site ART LINE RENAE Blood Gas Patient Temperature 98.6 98.6 Blood Gas HCO3 15 mmol/L 16 mmol/L (22-26) (22-26) Blood Gas Base Excess -10.2 mmol/L -8.6 mmol/L (-2-2) (-2-2) Blood Gas Oxygen Saturation 91 % (90-100) 95 % (90-100) Arterial Blood pH 7.27 7.32 (7.380-7.420) (7.380-7.420) Arterial Blood Partial 34 mmHg (38-42) 33 mmHg (38-42) Pressure CO2 Arterial Blood Partial 77 mmHg 103 mmHg Pressure O2 (61-120) (61-120) Arterial Blood Oxygen Content 11.8 Vol % 12.4 Vol % (12.0-20.0) (12.0-20.0) Arterial Blood 0.8 % (0-4) 0.8 % (0-4) Carboxyhemoglobin Arterial Blood Methemoglobin 1.5 % (0-2) 1.6 % (0-2) Blood Gas Hemoglobin 9.2 G/DL 9.2 G/DL (12.0-16.0) (12.0-16.0) Oxygen Delivery Device VENTILATOR VENTILATOR Blood Gas Ventilator Setting AC 20/550/8+ AC/20/550/PEEP10 Blood Gas Inspired Oxygen 55 % 55 % Activated Partial 81.2 SEC Thromboplast Time (24.3-30.1) Sodium Level 143 MEQ/L (136-145) Potassium Level 3.0 MEQ/L (3.5-5.1) Chloride Level 107 MEQ/L (98-107) Carbon Dioxide Level 17.7 MEQ/L (21.0-32.0) Anion Gap 18 MEQ/L (5-15) Blood Urea Nitrogen 64 MG/DL (7-18) Creatinine 4.06 MG/DL (0.60-1.30) Estimat Glomerular Filtration 15 ML/MIN (>89) Rate Random Glucose 231 MG/DL (74-106) Calcium Level 7.6 MG/DL (8.5-10.1) Test 07/25/16 06:00 White Blood Count 9.1 TH/MM3 (4.0-11.0) Red Blood Count 2.76 MIL/MM3 (4.50-5.90) Hemoglobin 8.6 GM/DL (13.0-17.0) Hematocrit 24.5 % (39.0-51.0) Mean Corpuscular Volume 88.7 FL (80.0-100.0) Mean Corpuscular Hemoglobin 31.0 PG (27.0-34.0) Mean Corpuscular Hemoglobin 34.9 % Concent (32.0-36.0) Red Cell Distribution Width 13.9 % (11.6-17.2) Platelet Count 37 TH/MM3 (150-450) Mean Platelet Volume 10.4 FL (7.0-11.0) Neutrophils (%) (Auto) 92.3 % (16.0-70.0) Lymphocytes (%) (Auto) 4.3 % (9.0-44.0) Monocytes (%) (Auto) 2.9 % (0.0-8.0) Eosinophils (%) (Auto) 0.1 % (0.0-4.0) Basophils (%) (Auto) 0.4 % (0.0-2.0) Neutrophils # (Auto) 8.4 TH/MM3 (1.8-7.7) Lymphocytes # (Auto) 0.4 TH/MM3 (1.0-4.8) Monocytes # (Auto) 0.3 TH/MM3 (0-0.9) Eosinophils # (Auto) 0.0 TH/MM3 (0-0.4) Basophils # (Auto) 0.0 TH/MM3 (0-0.2) CBC Comment AUTO DIFF Differential Total Cells 100 Counted Neutrophils % (Manual) 73 % (16-70) Band Neutrophils % 14 % (0-6) Lymphocytes % 11 % (9-44) Monocytes % 1 % (0-8) Neutrophils # (Manual) 8.0 TH/MM3 (1.8-7.7) Metamyelocytes 1 % (0-1) Differential Comment FINAL DIFF MANUAL Toxic Granulation 2+ (NORMAL) Dohle Bodies PRESENT (NONE SEEN) Platelet Estimate LOW (NORMAL) Platelet Morphology Comment NORMAL (NORMAL) Tear Drop Cells 1+ (NORMAL) Ovalocytes 1+ (NORMAL) Activated Partial 74.5 SEC Thromboplast Time (24.3-30.1) Sodium Level 143 MEQ/L (136-145) Potassium Level 2.8 MEQ/L (3.5-5.1) Chloride Level 108 MEQ/L (98-107) Carbon Dioxide Level 18.7 MEQ/L (21.0-32.0) Anion Gap 16 MEQ/L (5-15) Blood Urea Nitrogen 62 MG/DL (7-18) Creatinine 3.61 MG/DL (0.60-1.30) Estimat Glomerular Filtration 17 ML/MIN (>89) Rate Random Glucose 210 MG/DL (74-106) Lactic Acid Level 0.7 mmol/L (0.4-2.0) Calcium Level 8.1 MG/DL (8.5-10.1) Protein Corrected Calcium 9.2 MG/DL (8.5-10.1) Total Bilirubin 0.7 MG/DL (0.2-1.0) Aspartate Amino Transf 21 U/L (15-37) (AST/SGOT) Alanine Aminotransferase 30 U/L (12-78) (ALT/SGPT) Alkaline Phosphatase 58 U/L (45-117) Total Protein 5.3 GM/DL (6.4-8.2) Albumin 1.4 GM/DL (3.4-5.0) . Result Diagram: 07/25/16 0607/25/16 06 Microbiology Microbiology Date/Time Procedure Status Source Growth 07/22/16 03:57 Aerobic Blood Culture - Preliminary Resulted Blood Peripheral NO GROWTH IN 3 DAYS 07/22/16 03:57 Anaerobic Blood Culture - Preliminary Resulted Blood Peripheral NO GROWTH IN 3 DAYS 07/21/16 18:25 Gram Stain - Final Complete Sputum Endotracheal 07/21/16 18:25 Sputum Culture - Final Complete Sputum Endotracheal NO GROWTH IN 48 HOURS. 07/21/16 11:30 Rotavirus Antigen - Final Complete Stool Stool NEGATIVE - ROTAVIRUS ANTIGEN IS ABSEN... 07/21/16 11:30 Legionella Antigen - Final Complete Urine Catheterized Urine PRESUMPTIVE NEGATIVE FOR LEGIONELLA P... 07/21/16 11:30 Streptococcus pneumoniae Antigen (M - Final Complete Urine Catheterized Urine PRESUMPTIVE NEGATIVE FOR STREPTOCOCCU... 07/21/16 11:30 Cryptosporidium Exam - Final Complete Stool Stool NEGATIVE - NO CRYPTOSPORIDIUM ANTIGEN... 07/21/16 11:30 Stool Pus (SAVAGE) - Final Complete Stool Stool MODERATE WBC'S 07/21/16 11:30 Giardia Antigen (SAVAGE) - Final Complete Stool Stool NEGATIVE - NO GIARDIA ANTIGEN DETECTE... 07/21/16 11:30 - Final Complete Stool Stool NO ENTERIC PATHOGENS DETECTED BY PCR... 07/20/16 14:00 Urine Culture - Final Complete Urine Catheterized Urine NO GROWTH IN 48 HOURS. . Imaging Last Impressions Abdomen X-Ray 07/24/16 0705 Signed Impressions: Service Date/Time: July 08:28 - CONCLUSION: Air-filled bowel loops centrally but no obstruction seen. Uli Atkins MD Chest X-Ray 07/24/16 0600 Signed Impressions: Service Date/Time: July 05:36 - CONCLUSION: Unchanged bibasilar infiltrates. Omer Cheng Jr., MD Renal Ultrasound 07/20/16 Signed Impressions: Service Date/Time: Wednesday, July 20, 2016 14:32 - CONCLUSION: 1. No acute findings. Renal ultrasound unremarkable. Bladder was not well-visualized. Jose Martin Valderrama MD Lower Extremity Ultrasound 07/20/16 Signed Impressions: Service Date/Time: Wednesday, July 20, 2016 14:39 - CONCLUSION: Negative exam with no evidence of deep venous thrombosis. Alonzo Bradshaw MD Head CT 07/20/16 Signed Impressions: Service Date/Time: Wednesday, July 20, 2016 18:21 - CONCLUSION: 1. No acute intracranial abnormalities. Mild mucosal thickening of the ethmoid air cells. Jose Martin Valderrama MD Chest CT 07/20/16 Signed Impressions: Service Date/Time: Wednesday, July 20, 2016 11:28 - CONCLUSION: 1. Chronic scarring in the lung bases left greater than right. 2. No focal consolidation. 3. Bilateral adrenal masses left greater than right most consistent with adenomas. 4. Nonspecific bowel gas pattern noted in the upper abdomen with air-fluid levels in the small bowel. Alonzo Bradshaw MD Abdomen/Pelvis CT 07/20/16 Signed Impressions: Service Date/Time: Wednesday, July 20, 2016 18:24 - CONCLUSION: 1. Lower abdominal ventral midline hernia containing loop of small bowel. Small bowel is mildly distended somewhat diffusely with fluid and air. Cannot exclude a low grade partial bowel obstruction in the area of herniation. 2. No abnormal fluid collections to suggest abscess. No free air or free fluid. 3. Basilar and dependent lung consolidation, left greater than right. Pneumonia could have this appearance. Small left effusion. 4. NG tip in stomach. Inferior vena cava filter present. Connelly catheter in bladder. Jose Martin Valderrama MD . Procedures * Intubation/mechanical ventilation 07/20/16 * Left internal jugular central line placement 07/20/16 * Right jugular vas-cath placement * CRRT . Assessment and Plan Disease Oriented Problem List: (1) Severe sepsis with acute organ dysfunction Comment: Blood cx growing out Group A strep . (2) Respiratory failure (3) Lactic acidosis Comment: Improved -- but metabolic acidosis persists with elevated anion gap. . (4) Hypoxia (5) Peripheral vascular disease (6) Hypertension (7) Dyslipidemia (8) Chronic anticoagulation (9) Elevated troponin (10) History of DVT (deep vein thrombosis) (11) Acute kidney injury Comment: Now on CRRT. (12) Thrombocytopenia (13) Metabolic acidosis Comment: This has remained profound and persistent in spite of normalization of lactic acid. . Symptom Scale: (1) Pain 0-10 Scale: Unable to quantify Comment: Patient has chronic pain mostly in the lower extremities from a combination of peripheral vascular disease and diabetic neuropathy. He had been prescribed opiates in the past but normally takes no analgesics because he doesn't like the side effects. Additional sources of discomfort at this time would include prolonged bedbound status; orotracheal/orogastric intubations; Connelly catheter; vascular access lines. . (2) Dyspnea 0-10 Scale: Unable to quantify (dyspnea seems managed with mechanical ventilation.) Comment: Controlled with mechanical ventilation . (3) Encephalopathy 0-10 Scale: Unable to quantify Comment: Encephalopathy is most likely multifactorial and in large part due to the septic shock. Based on the history, it is unlikely that the duration of hypoglycemia or hypotension would've caused any type of permanent damage. There is no prior history of underlying dementia. . Pertinent Non-Medical Issues Psychosocial: Patient is well supported by his spouse and daughter who live locally, many friends who live locally, and 2 daughters who have flown in from [place] and [place]. Spiritual: Patient was raised in a [place] home. Now identifies himself as a Muslim. Yazidism and spirituality have not played a large part in his life of late. Legal: reports the patient has completed an advanced directive. She will bring a copy into scanned into the medical record. Ethical issues impacting care: Patient is currently incapacitated to make his own health care decisions. It remains uncertain if he will regain capacity to do so. . Important Contacts == Spouse (Alysia Lemus) [phone] == Daughter (Adenike) [phone] . Prognosis Though Mr Lemus is quite critically ill with septic shock and multiple organs being affected, it is also important to note that in spite of his underlying chronic illnesses , his functional status was reasonably good prior to becoming acutely ill so suddenly. Family, understandably, want to give him a chance to see if he is able to get through this acute period. He had a similar episode of severe illness approximately 10 years ago after being hospitalized with a ruptured appendix. Family has witnessed him being able to recover from that. The rapidity of progression to overwhelming sepsis is a poor prognostic sign. In addition, he will need ample fluids to fight shock and hypotension which can easily lead to congestive failure given his history. It is doubtful family will want to go forward with trach/PEG unless there were good reason to believe he would recover. . . Code Status: Full Code Plan == Code Status : FULL CODE == Decision Making: The patient is currently incapacitated to make his own health care decisions. will bring in the patient's completed advanced directive. She informs me that she is listed as the designated health care surrogate. If there is no advanced directive, would still be asked to serve as proxy decision-maker under the hierarchy of proxy's in the [place] statutes. == Goals of medical treatment: The patient's spouse and 3 of the daughters present want ongoing and full aggressive care for the time being. They are aware how ill the patient is and want to see if he is able to turn the corner. As noted above they would want all resuscitation attempts tried at this point in time. On the other hand, family reports that the patient would not want to be maintained on life support if there is no hope for meaningful recovery. is even uncertain if patient would ever agree to ongoing hemodialysis. If the patient continues to decline in spite of aggressive care were there is no obvious improvement in spite of aggressive care want to reconsider goals. == Pain: As noted above, patient has a number of different pain syndromes. Currently pain is being controlled with a fentanyl drip. This appears to be working. No further recommendations for pain control at this time. ==Dyspnea: Dyspnea currently being controlled with mechanical ventilation. No further recommendations at this time. == Agitation: Agitation is probably secondary to a multifactorial delirium. Symptoms are currently being controlled with propofol. Hopefully as the patient 's underlying infection is being treated, propofol can be weaned and agitation will be less. No further recommendations at this time. == Encephalopathy: Also likely due to a multifactorial delirium. No evidence at this time to suggest there is been any kind of long lasting adverse effects from either hypoglycemia or hypotension or hypoxia.. No further recommendations at this time. == is bringing in a copy of the patient's advanced directive for us to scan into the electronic medical record. Has not arrived yet. Have asked nursing staff to request this as well. == Palliative care will continue to follow to assist with symptom management and to further clarify goals of medical treatment as the clinical course evolves. . Jameson Conklin MD July 25, 2016 12:39 further recommendations at this time. == Agitation: Agitation is probably secondary to a multifactorial delirium. Symptoms are currently being controlled with propofol. Hopefully as the patient 's underlying infection is being treated, propofol can be weaned and agitation will be less. No further recommendations at this time. == Encephalopathy: Also likely due to a multifactorial delirium. No evidence at this time to suggest there is been any kind of long lasting adverse effects from either hypoglycemia or hypotension or hypoxia.. No further recommendations at this time. == is bringing in a copy of the patient's advanced directive for us to scan into the electronic medical record. Has not arrived yet. Have asked nursing staff to request this as well. == Palliative care will continue to follow to assist with symptom management and to further clarify goals of medical treatment as the clinical course evolves. . Jameson Conklin MD July 25, 2016 12:39
--- NOTE | 2016-07-25 16:15 | HHI.CCPN ---
Subjective Remarks/Hospital Course 71-year-old male. Date of admission 07/20/2016. Past records includes diabetes with neuropathy and nephropathy, hypertension, dyslipidemia, chronic pain syndrome, history of DVT/PE on chronic anticoagulation, peripheral vascular disease with history of AAA, and osteoporosis. Patient recently C [place] 07/06/16. Patient sick contacts would include neighbor with "vital illness. Patient is to [facility] today with acute onset of diarrhea, hypoglycemia and chills. Upon arrival, patient was noted be acutely hypoxic and required a nonrebreather mask. Patient denies pleuritic chest pain , abdominal pain but positive for nausea and diarrhea. CT chest revealed bilateral lower lobe scarring, bilateral adrenal adenomas a nonspecific bowel gas pattern. Chest x-ray revealed no significant findings. Lab work included a lactic acid elevated 7.7, white blood cell count 12,000 in acute kidney injury with a creatinine of 3.0. Baseline around 1.5-2. Troponin was slightly elevated 0.14. EKG is currently pending. Upon arrival to [facility], patient was extremely mottled with rates in the 40s. Patient was emergently intubated please see note and a left IJ central line was placed. CT of the head, abdomen and pelvis currently pending. 07/21 Patient is sedated with Diprivan and Fentanyl and intubated. On Levophed 22 mics, Vasopressin and bicarb drip. BC from 07/20: GPC all 4 bottles. 07/22 Patient remains sedated and intubated On Levophed 22 mics, vasopressin and bicarb drip. Awaiting to start CVVHD today 07/23: Remains sedated, orally intubated on mech ventilation. On Levophed 15 mics per minute and low-dose vasopressin for pressor support. On CRRT. 07/24: Remains sedated, orally intubated on mechanical ventilation. On Levophed 7 mics per minute and low-dose vasopressin for pressor support. CRRT was stopped at 1:30 AM due to Wu system and has now been resumed. 2 A of bicarbonate given for metabolic acidosis while CRRT held and bicarbonate drip was started back yesterd 07/25: Remains critically ill, on CVVH. Levoped 6 mics per minute. White count has normalized, making slight amount of urine. Showing some signs of progress Objective Vital Signs Date Time Temp Pulse Resp B/P Pulse Ox O2 Delivery O2 Flow Rate FiO2 07/25/16 14:00 92 07/25/16 12:35 94 45 07/25/16 12:00 98.2 20 138/65 Intake and Output 07/24/16 07/24/16 07/25/16 08:00 16:00 00:00 Intake Total 2121 ml 2329 ml 2156 ml Output Total 75 ml 50 ml 400.0 ml Balance 2046 ml 2279 ml 1756.0 ml Result Diagram: 07/25/16 0600 07/25/16 0600 Other Results Laboratory Tests Test 07/25/16 05:13 Blood Gas Puncture Site RENAE Blood Gas Patient Temperature 98.6 Blood Gas HCO3 16 mmol/L (22-26) Blood Gas Base Excess -8.6 mmol/L (-2-2) Blood Gas Oxygen Saturation 95 % (90-100) Arterial Blood pH 7.32 (7.380-7.420) Arterial Blood Partial 33 mmHg (38-42) Pressure CO2 Arterial Blood Partial 103 mmHg Pressure O2 (61-120) Arterial Blood Oxygen Content 12.4 Vol % (12.0-20.0) Arterial Blood 0.8 % (0-4) Carboxyhemoglobin Arterial Blood Methemoglobin 1.6 % (0-2) Blood Gas Hemoglobin 9.2 G/DL (12.0-16.0) Oxygen Delivery Device VENTILATOR Blood Gas Ventilator Setting AC/20/550/PEEP10 Blood Gas Inspired Oxygen 55 % Imaging Last 48 hours Impressions Abdomen X-Ray 07/24/16 0749 Signed Impressions: Service Date/Time: July 08:28 - CONCLUSION: Air-filled bowel loops centrally but no obstruction seen. Uli Atkins MD Chest X-Ray 07/24/16 0600 Signed Impressions: Service Date/Time: July 05:36 - CONCLUSION: Unchanged bibasilar infiltrates. Omer Cheng Jr., MD Last Impressions Chest X-Ray 07/21/16 0000 Signed Impressions: Service Date/Time: Thursday, July 21, 2016 22:13 - CONCLUSION: Satisfactory central line positioning. Worsening aeration. [place] Guillermo MD Renal Ultrasound 07/20/16 0000 Signed Impressions: Service Date/Time: Wednesday, July 20, 2016 14:32 - CONCLUSION: 1. No acute findings. Renal ultrasound unremarkable. Bladder was not well-visualized. Jose Martin Valderrama MD Lower Extremity Ultrasound 07/20/16 Signed Impressions: Service Date/Time: Wednesday, July 20, 2016 14:39 - CONCLUSION: Negative exam with no evidence of deep venous thrombosis. Alonzo Bradshaw MD Head CT 07/20/16 Signed Impressions: Service Date/Time: Wednesday, July 20, 2016 18:21 - CONCLUSION: 1. No acute intracranial abnormalities. Mild mucosal thickening of the ethmoid air cells. Jose Martin Valderrama MD Chest CT 07/20/16 Signed Impressions: Service Date/Time: Wednesday, July 20, 2016 11:28 - CONCLUSION: 1. Chronic scarring in the lung bases left greater than right. 2. No focal consolidation. 3. Bilateral adrenal masses left greater than right most consistent with adenomas. 4. Nonspecific bowel gas pattern noted in the upper abdomen with air-fluid levels in the small bowel. Alonzo Bradshaw MD Abdomen/Pelvis CT 07/20/16 Signed Impressions: Service Date/Time: Wednesday, July 20, 2016 18:24 - CONCLUSION: 1. Lower abdominal ventral midline hernia containing loop of small bowel. Small bowel is mildly distended somewhat diffusely with fluid and air. Cannot exclude a low grade partial bowel obstruction in the area of herniation. 2. No abnormal fluid collections to suggest abscess. No free air or free fluid. 3. Basilar and dependent lung consolidation, left greater than right. Pneumonia could have this appearance. Small left effusion. 4. NG tip in stomach. Inferior vena cava filter present. Connelly catheter in bladder. Jose Martin Valderrama MD Objective Remarks GENERAL: Patient is 71 yo critically ill intubated and sedated. SKIN: Warm and dry. HEAD: Normocephalic. EYES: Pallor present. No scleral icterus. No injection or drainage. NECK: Supple, trachea midline. No JVD or lymphadenopathy. CARDIOVASCULAR: Regular rate and rhythm without murmurs, gallops, or rubs. RESPIRATORY: Orally intubated on mechanical ventilation, Breath sounds equal bilaterally. Scattered rhonchi, no wheezing. GASTROINTESTINAL: Abdomen soft, non-tender, nondistended. Bowel sounds sluggish Neuro: Sedated, intubated. Not a candidate for daily sedation vacation yet Extremities: Warm bilaterally, Bilateral edema Line: Central Venous Catheter A/P Assessment and Plan Neuro/Psych: Peripheral neuropathy Chronic pain syndrome Patient is currently on propofol/fentanyl drips for sedation/analgesia while intubated. Ativan IV when necessary for sedation. Goal of RASS -2 Daily sedation vacation once hemodynamically and clinically more stable 07/20 CT brain: No acute intracranial abnormalities. CV: Elevated troponin Hypertension Dyslipidemia Lactic acidosis Peripheral vascular disease History of AAA Continue with pressors( Levo) keep MAP>65mmHg Serial lactic acid monitoring On Stress dose steroids- HC 50mg IV Q8 Monitor CK/trop, Continue with ASA daily Echo showed EF 35-40% Resp: Acute hypoxemic respiratory failure Tobaccoism Continue with vent support keep sat >92% Ventilator bundle Bronchodilator therapy every 4 hours with albuterol every 2 hours. Hold off on spontaneous breathing trials due to vasopressor use and metabolic acidosis. CT chest 07/20 revealed left greater than right basilar scarring. Bilateral adrenal adenomas. No focal consolidation GI: Continue tube feeds- Nepro with goal rate 40ml/hr At Reglan 5 mg IV every 8 hours Protonix for GI prophylaxis Colace/as needed Senokot for bowel regimen CT abdomen reviewed. Gen surgery- Dr Roman- no surgical interventions. : Strict intake output, monitor and replete electrolytes, follow BUN/creatinine. Started CRRT on 07/22, being followed by nephrology Dr. 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 Worsening platelet count noted, probably secondary to sepsis. HIT screen negative. Consulted hematology. ID: Continue with abx per ID (Unasyn, Clindamycin, vanco x 1 dose) monitor for signs of infections - Pertinent cultures BC 07/20- GPC, Group A Beta strep Urine cx 07/20 : neg Strep pneumonia nad Legionella urinary Ag negative Follow up on Sputum cx, BC 07/21, 07/22- NGTD MSK: Osteoarthritis Holding vitamin D 1000 units by mouth daily. Access - Left IJ CVL placed 07/20, Art line placed 07/21 -Right IJ vascath placed 07/22 Prophylaxis - GI - Protonix - DVT - SCD/heparin SQ - Doppler US LE negative for DVT Palliative care is following Patient is critically ill with resp failure, renal failure, septic shock and multiorgan injury. Prognosis guarded. Updated patient's and daughter at bedside on 07/23 regarding current clinical condition and plan of care and they voiced understanding. I also explained possible need for tracheostomy and PEG tube in about 2 weeks since getting intubated if aggressive care desired at that time. D/W VIDEO INTERNwell digger: The total critical care time was 35 minutes. Time to perform other separately billable procedures was not included in the critical care time. Saniya Slade MD July 25, 2016 16:15
--- NOTE | 2016-07-25 19:06 | HHI.NPPN ---
Subjective History of Present Illness 71-year-old male with past medical history of diabetes mellitus, hypertension, ischemic heart disease, peripheral neuropathy, chronic kidney disease, history of deep vein thrombosis, hyperlipidemia was brought to the hospital because of generalized weakness, confusion and vomiting and diarrhea. I was called to see the patient because of elevated BUN and creatinine. The patient has history of acute kidney injury in the past and chronic kidney disease. His creatinine was around 1.2 to 1.4, this was in 2012. Additional Remarks Patient is on the vent. and sedation, remain on CRRT, has low BP and on pressors , clinically same. Review of Systems General General Remarks Intubated and sedated. Objective Data Data 07/24/16 07/25/16 19:00 07:00 Intake Total 2329 ml 4138 ml Output Total 50 ml 450.0 ml Balance 2279 ml 3688.0 ml Intake IV Total 2329 ml 4138 ml Tube Feeding 0 ml 0 ml Output Urine Total 50 ml 100 ml Tube Feeding Residual Discard 350.0 ml # Bowel Movements 1 0 Vital Signs Date Time Temp Pulse Resp B/P Pulse Ox O2 Delivery O2 Flow Rate FiO2 07/25/16 18:00 126/57 07/25/16 18:00 92 07/25/16 17:25 94 45 07/25/16 16:00 99.1 93 20 111/52 93 07/25/16 16:00 60 07/25/16 16:00 93 07/25/16 14:00 92 07/25/16 12:35 94 45 07/25/16 12:00 60 07/25/16 12:00 103 07/25/16 12:00 98.2 103 20 138/65 100 07/25/16 10:00 105 07/25/16 09:25 95 45 07/25/16 08:00 90 07/25/16 08:00 97.0 93 20 118/51 95 07/25/16 08:00 60 07/25/16 06:00 88 07/25/16 06:00 91 113/50 07/25/16 04:37 99 55 07/25/16 04:00 60 07/25/16 04:00 94.8 83 20 133/55 99 07/25/16 04:00 86 07/25/16 02:00 85 07/25/16 00:03 100 60 07/25/16 00:00 97.6 87 20 133/56 99 07/25/16 00:00 60 07/25/16 00:00 87 07/24/16 22:00 89 07/24/16 20:54 100 65 07/24/16 20:00 89 07/24/16 20:00 65 07/24/16 20:00 97.4 93 20 128/57 99 -: 07/25/16 0600 07/25/16 1715 Physical Exam General Appearance Remarks Intubated and sedated. Eyes Eye Exam: Pupils Equal Throat Throat Exam: Oral Mucosa [place] & Moist Neck Neck Exam: Neck Supple Pulmonary Resp Exam: Rhonchi, Decreased Bases, Diminished Breath Sounds, Poor Inspiratory Effort Cardiology CV Exam: Regular, Normal Sinus Rhythm Gastrointestinal/Abdomen GI Exam: Soft, Non-Tender, Bowel Sounds Present Extremeties Extremities Exam: Trace Edema Neurologic Neuro Exam: Unresponsive, Sedated Assessment/Plan Assessment Summary: ADALID/Acute Renal Failure Electrolyte Assessment: Metabolic Acidosis Problem List: (1) Diabetes mellitus with neuropathy (2) Leukocytosis (3) Peripheral vascular disease (4) Severe sepsis with acute organ dysfunction (5) History of DVT (deep vein thrombosis) (6) Hypoxia (7) Acidosis (8) Lactic acidosis Plan Patient has low urine out put. BP is still low, on multiple pressors. BC results noted, seen by ID. Now on Unasyn and Clindamycin. To start CRRT, informed the HD RN and orders given. K is low and replaced. Calcium is better. Po4 elevated, should improve with HD. CPK also elevated, but improving. Continue same CRRT, remove fluid as tolerated. HCo3 was low, and started on HCo3 replacement. Continue CRRT as BP is low. Continue antibiotics. Problem Qualifiers (1) Diabetes mellitus with neuropathy: Qualified Code: E11.40 - Type 2 diabetes mellitus with diabetic neuropathy, unspecified joint terminal attack controller insulin use status (2) Leukocytosis: Qualified Code: D72.829 - Leukocytosis, unspecified type Frank Magana MD July 25, 2016 19:06
[2016-07-26] VITALS (18 sets, daily range): BP systolic 108–136; BP diastolic 51–58; PULSE 82–95; RESP 20; TEMP 98.6–98.8; O2SAT 95–98
[2016-07-26] MEDS: CALCIUM GLUCONATE IV SCH ×3 (00:20→05:43)
[2016-07-26] MEDS: SODIUM BICARBONATE 8.4% INJ 150 MEQ in WATER STERILE FOR INJ 850 ML IV SCH (00:20)
[2016-07-26] MEDS: SODIUM CHLOR 0.9% IV SCH ×3 (00:20→05:43)
[2016-07-26] MEDS: PROPOFOL 1000 MG/100 ML INJ 100 ML IV SCH ×5 (01:35→23:57)
[2016-07-26] MEDS: NOREPINEPHRINE INJ 8 MG in SODIUM CHLORID 0.9% 500 ML INJ 492 ML IV SCH (01:35)
[2016-07-26] MEDS: AMPICILLIN-SULBACTAM INJ 1,500 MG in SODIUM CHLORIDE 0.9% INJ 100 ML IV SCH ×3 (01:36→17:00)
[2016-07-26] MEDS: INSULIN NovoLIN REGULAR SUPPLEMENTAL SCALE SQ SCH ×4 (01:52→17:56)
[2016-07-26] MEDS: CHLORHEXIDINE GLUCONATE 2 % 1 PACK (2 CLOTHS) TOP SCH (04:00)
[2016-07-26] MEDS: HYDROCORTISONE SOD SUCCINATE 100 MG VIAL IV PUSH SCH ×3 (05:17→22:58)
[2016-07-26] MEDS: CLINDAMYCIN INJ 900 MG in SODIUM CHLORIDE 0.9% INJ 100 ML IV SCH ×4 (05:18→22:59)
--- NOTE | 2016-07-26 05:51 | RADRPT ---
EXAM DATE/TIME: 07/26/2016 04:56 [facility] COMPARISON: CHEST SINGLE AP, July 24, 2016, 5:36. INDICATIONS : Shortness of breath. MEDICAL HISTORY : Congestive heart failure. Diabetes mellitus type II. SURGICAL HISTORY : None. ENCOUNTER: Subsequent ACUITY: 1 week PAIN SCORE: Non-responsive. LOCATION: Bilateral chest FINDINGS: The support devices remain in place. There is no pneumothorax. There continues to be bilateral pulmon louise infiltrates without significant change compared to the prior examination. Heart size is enlarged but stable. CONCLUSION: No significant change. Jovan Aldridge MD on July 26, 2016 at 5:50 Board Certified Radiologist. This report was verified electronically.
[2016-07-26 06:21] LABS: AUTOMATED NEUTROPHIL # 8.1 TH/MM3 (1.8-7.7); BASOPHIL % 0.3 % (0.0-2.0); EOSINOPHIL # 0.2 TH/MM3 (0-0.4); EOSINOPHIL % 2.4 % (0.0-4.0); HEMATOCRIT 23.8 % (39.0-51.0); MEAN CELL VOLUME 88.2 FL (80.0-100.0); MEAN CORPUSCULAR HEMOGLOBIN 30.9 PG (27.0-34.0); NEUT % 84.3 % (16.0-70.0); PLATELET COUNT 56 TH/MM3 (150-450); RED CELL DISTRIBUTION WIDTH 14.1 % (11.6-17.2); WHITE BLOOD COUNT 9.6 TH/MM3 (4.0-11.0)
[2016-07-26 06:26] LABS: HEMO FLAGS AUTO DIFF
[2016-07-26 06:34] LABS: APTT (PATIENT) 39.4 SEC (24.3-30.1)
[2016-07-26 07:08] LABS: BICARBONATE 22.1 MEQ/L (21.0-32.0); CALCIUM-PROTEIN CORRECTED 7.8 MG/DL (8.5-10.1); MAGNESIUM 1.6 MG/DL (1.5-2.5); POTASSIUM 3.1 MEQ/L (3.5-5.1); TOTAL BILIRUBIN ADULT 0.6 MG/DL (0.2-1.0)
[2016-07-26] MEDS: CALCIUM GLUCONATE INJ 2 GM in SODIUM CHLORIDE 0.9% INJ 100 ML IV SCH ×6 (07:15→22:59)
[2016-07-26] MEDS: CHLORHEXIDINE 0.12% (ORAL KIT) 15 ML CUP MT SCH ×2 (08:00→19:40)
--- NOTE | 2016-07-26 08:55 | HHI.CCPN ---
Subjective Remarks/Hospital Course 71-year-old male. Date of admission 07/20/2016. Past records includes diabetes with neuropathy and nephropathy, hypertension, dyslipidemia, chronic pain syndrome, history of DVT/PE on chronic anticoagulation, peripheral vascular disease with history of AAA, and osteoporosis. Patient recently [place] 07/06/16. Patient sick contacts would include neighbor with "vital illness. Patient is to [facility] today with acute onset of diarrhea, hypoglycemia and chills. Upon arrival, patient was noted be acutely hypoxic and required a nonrebreather mask. Patient denies pleuritic chest pain , abdominal pain but positive for nausea and diarrhea. CT chest revealed bilateral lower lobe scarring, bilateral adrenal adenomas a nonspecific bowel gas pattern. Chest x-ray revealed no significant findings. Lab work included a lactic acid elevated 7.7, white blood cell count 12,000 in acute kidney injury with a creatinine of 3.0. Baseline around 1.5-2. Troponin was slightly elevated 0.14. EKG is currently pending. Upon arrival to [facility], patient was extremely mottled with rates in the 40s. Patient was emergently intubated please see note and a left IJ central line was placed. CT of the head, abdomen and pelvis currently pending. 07/21 Patient is sedated with Diprivan and Fentanyl and intubated. On Levophed 22 mics, Vasopressin and bicarb drip. BC from 07/20: GPC all 4 bottles. 07/22 Patient remains sedated and intubated On Levophed 22 mics, vasopressin and bicarb drip. Awaiting to start CVVHD today 07/23: Remains sedated, orally intubated on mech ventilation. On Levophed 15 mics per minute and low-dose vasopressin for pressor support. On CRRT. 07/24: Remains sedated, orally intubated on mechanical ventilation. On Levophed 7 mics per minute and low-dose vasopressin for pressor support. CRRT was stopped at 1:30 AM due to Air in system and has now been resumed. 2 Amps of bicarbonate given for metabolic acidosis while CRRT held and bicarbonate drip was started back yesterday 07/25: Remains critically ill, on CVVH. Levoped 6 mics per minute. White count has normalized, making slight amount of urine. Showing some signs of progress 07/26: Remains sedated, orally intubated on mechanical ventilation. Remains on Levophed 3 mics per minute, vasopressin 0.03 mics per minute. CRRT continues. Objective Vital Signs Date Time Temp Pulse Resp B/P Pulse Ox O2 Delivery O2 Flow Rate FiO2 07/26/16 08:38 97 45 07/26/16 06:00 123/53 07/26/16 06:00 86 07/26/16 04:00 98.6 20 Intake and Output 07/25/16 07/25/16 07/26/16 08:00 16:00 00:00 Intake Total 1982 ml 2346 ml 1972 ml Output Total 50 ml 3346 ml 3854.0 ml Balance 1932 ml -1000 ml -1882.0 ml Result Diagram: 07/26/16 0610 07/26/16 06 Other Results Last Impressions Chest X-Ray 07/26/16 0600 Signed Impressions: Service Date/Time: Tuesday, July 26, 2016 04:56 - CONCLUSION: No significant change. Jovan Aldridge MD Abdomen X-Ray 07/24/16 0749 Signed Impressions: Service Date/Time: July 08:28 - CONCLUSION: Air-filled bowel loops centrally but no obstruction seen. Uli Atkins MD Renal Ultrasound 07/20/16 Signed Impressions: Service Date/Time: Wednesday, July 20, 2016 14:32 - CONCLUSION: 1. No acute findings. Renal ultrasound unremarkable. Bladder was not well-visualized. Jose Martin Valderrama MD Lower Extremity Ultrasound 07/20/16 Signed Impressions: Service Date/Time: Wednesday, July 20, 2016 14:39 - CONCLUSION: Negative exam with no evidence of deep venous thrombosis. Alonzo Bradshaw MD Head CT 07/20/16 Signed Impressions: Service Date/Time: Wednesday, July 20, 2016 18:21 - CONCLUSION: 1. No acute intracranial abnormalities. Mild mucosal thickening of the ethmoid air cells. Jose Martin Valderrama MD Chest CT 07/20/16 Signed Impressions: Service Date/Time: Wednesday, July 20, 2016 11:28 - CONCLUSION: 1. Chronic scarring in the lung bases left greater than right. 2. No focal consolidation. 3. Bilateral adrenal masses left greater than right most consistent with adenomas. 4. Nonspecific bowel gas pattern noted in the upper abdomen with air-fluid levels in the small bowel. Alonzo Bradshaw MD Abdomen/Pelvis CT 07/20/16 Signed Impressions: Service Date/Time: Wednesday, July 20, 2016 18:24 - CONCLUSION: 1. Lower abdominal ventral midline hernia containing loop of small bowel. Small bowel is mildly distended somewhat diffusely with fluid and air. Cannot exclude a low grade partial bowel obstruction in the area of herniation. 2. No abnormal fluid collections to suggest abscess. No free air or free fluid. 3. Basilar and dependent lung consolidation, left greater than right. Pneumonia could have this appearance. Small left effusion. 4. NG tip in stomach. Inferior vena cava filter present. Connelly catheter in bladder. Jose Martin Valderrama MD Imaging Last 24 hours Impressions Chest X-Ray 07/26/16 0600 Signed Impressions: Service Date/Time: Tuesday, July 26, 2016 04:56 - CONCLUSION: No significant change. Jovan Aldridge MD Last 48 hours Impressions Abdomen X-Ray 07/24/16 0749 Signed Impressions: Service Date/Time: July 08:28 - CONCLUSION: Air-filled bowel loops centrally but no obstruction seen. Uli Atkins MD Chest X-Ray 07/24/16 0600 Signed Impressions: Service Date/Time: July 05:36 - CONCLUSION: Unchanged bibasilar infiltrates. Omer Cheng Jr., MD Last Impressions Chest X-Ray 07/21/16 0000 Signed Impressions: Service Date/Time: Thursday, July 21, 2016 22:13 - CONCLUSION: Satisfactory central line positioning. Worsening aeration. [place] Guillermo MD Renal Ultrasound 07/20/16 0000 Signed Impressions: Service Date/Time: Wednesday, July 20, 2016 14:32 - CONCLUSION: 1. No acute findings. Renal ultrasound unremarkable. Bladder was not well-visualized. Jose Martin Valderrama MD Lower Extremity Ultrasound 07/20/16 Signed Impressions: Service Date/Time: Wednesday, July 20, 2016 14:39 - CONCLUSION: Negative exam with no evidence of deep venous thrombosis. Alonzo Bradshaw MD Head CT 07/20/16 Signed Impressions: Service Date/Time: Wednesday, July 20, 2016 18:21 - CONCLUSION: 1. No acute intracranial abnormalities. Mild mucosal thickening of the ethmoid air cells. Jose Martin Valderrama MD Chest CT 07/20/16 0000 Signed Impressions: Service Date/Time: Wednesday, July 20, 2016 11:28 - CONCLUSION: 1. Chronic scarring in the lung bases left greater than right. 2. No focal consolidation. 3. Bilateral adrenal masses left greater than right most consistent with adenomas. 4. Nonspecific bowel gas pattern noted in the upper abdomen with air-fluid levels in the small bowel. Alonzo Bradshaw MD Abdomen/Pelvis CT 07/20/16 0000 Signed Impressions: Service Date/Time: Wednesday, July 20, 2016 18:24 - CONCLUSION: 1. Lower abdominal ventral midline hernia containing loop of small bowel. Small bowel is mildly distended somewhat diffusely with fluid and air. Cannot exclude a low grade partial bowel obstruction in the area of herniation. 2. No abnormal fluid collections to suggest abscess. No free air or free fluid. 3. Basilar and dependent lung consolidation, left greater than right. Pneumonia could have this appearance. Small left effusion. 4. NG tip in stomach. Inferior vena cava filter present. Connelly catheter in bladder. Jose Martin Valderrama MD Objective Remarks Drips: Levophed/vasopressin/propofol/fentanyl/bicarbonate CRRT: net -150cc/hr Flow Trac: SVV 3 GENERAL: Patient is 71 yo critically ill intubated and sedated. SKIN: Warm and dry. HEAD: Normocephalic. EYES: Pallor present. No scleral icterus. No injection or drainage. NECK: Supple, trachea midline. No JVD or lymphadenopathy. CARDIOVASCULAR: Regular rate and rhythm without murmurs, gallops, or rubs. RESPIRATORY: Orally intubated on mechanical ventilation, Breath sounds equal bilaterally. Scattered rhonchi, no wheezing. GASTROINTESTINAL: Abdomen soft, non-tender, nondistended. Bowel sounds sluggish Neuro: Sedated, intubated. Not a candidate for daily sedation vacation yet Extremities: Warm bilaterally, Bilateral edema Urinary Catheter: Yes Assessment to: Continue Line: Central Venous Catheter A/P Assessment and Plan Neuro/Psych: Peripheral neuropathy Chronic pain syndrome Patient is currently on propofol/fentanyl drips for sedation/analgesia while intubated. Ativan IV when necessary for sedation. Goal of RASS -2 Daily sedation vacation once hemodynamically and clinically more stable 07/20 CT brain: No acute intracranial abnormalities. CV: Elevated troponin Hypertension Dyslipidemia Lactic acidosis Peripheral vascular disease History of AAA Continue with pressors( Levophed/ vasopressin) to keep MAP>65mmHg Serial lactic acid monitoring. Flotrac for hemodynamic monitoring. On Stress dose steroids- HC 50mg IV Q8 Continue with ASA daily Echo showed EF 35-40% Resp: Acute hypoxemic respiratory failure Tobaccoism Continue with vent support keep sat >92% Ventilator bundle Bronchodilator therapy every 4 hours with albuterol every 2 hours. Hold off on spontaneous breathing trials due to vasopressor use and metabolic acidosis. CT chest 07/20 revealed left greater than right basilar scarring. Bilateral adrenal adenomas. No focal consolidation GI: Continue tube feeds- Nepro with goal rate 40ml/hr Reglan 5 mg IV every 8 hours Protonix for GI prophylaxis Colace/as needed Senokot for bowel regimen CT abdomen reviewed. Gen surgery- Dr Roman- no surgical interventions. : Strict intake output, monitor and replete electrolytes, follow BUN/creatinine. Started CRRT on 07/22, being followed by nephrology Dr. 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 Worsening platelet count noted, probably secondary to sepsis. HIT screen negative. Consult hematology if platelet count not improving. ID: Continue with abx per ID (Unasyn, Clindamycin, vanco x 1 dose) monitor for signs of infections - Pertinent cultures BC 07/20- GPC, Group A Beta strep Urine cx 07/20 : neg Strep pneumonia nad Legionella urinary Ag negative Follow up on Sputum cx, BC 07/21, 07/22- NGTD MSK: Osteoarthritis Holding vitamin D 1000 units by mouth daily. Access - Left IJ CVL placed 07/20, Art line placed 07/21 -Right IJ vascath placed 07/22 Prophylaxis - GI - Protonix - DVT - SCD/heparin SQ - Doppler US LE negative for DVT Palliative care is following Patient is critically ill with resp failure, renal failure, septic shock and multiorgan injury. Prognosis guarded. Updated patient's and daughter at bedside on 07/23 regarding current clinical condition and plan of care and they voiced understanding. I also explained possible need for tracheostomy and PEG tube in about 2 weeks since getting intubated if aggressive care desired at that time. D/W HERBOLOGISTcirculator: The total critical care time was 40 minutes. Time to perform other separately billable procedures was not included in the critical care time. Roman Hicks MD July 26, 2016 08:55
[2016-07-26] MEDS: SODIUM CHLORIDE 0.9% FLUSH 10 ML FLUSH IV FLUSH SCH ×2 (09:00→19:42)
[2016-07-26] MEDS: SODIUM CHLORIDE 0.9% FLUSH 10 ML FLUSH IVF SCH (09:00)
[2016-07-26] MEDS: ASPIRIN 81 MG CHEW TAB CHEW SCH (09:00)
[2016-07-26] MEDS ORDERED: POTASSIUM CHLOR 40 MEQ PREMIX 100 ML IV ONE ×2 (09:00→13:00)
[2016-07-26] MEDS: SODIUM BICARBONATE 8.4% INJ 50 MEQ in SODIUM CHLOR 0.45% 1000 ML INJ 1,000 ML IV SCH ×9 (09:06→23:58)
[2016-07-26] MEDS: VASOPRESSIN 40 U/100 ML D5W Titrate, Post Cardiac Surgery IV SCH ×4 (09:06→22:59)
[2016-07-26] MEDS: fentaNYL DRIP 250 ML IV SCH ×2 (09:13→23:57)
[2016-07-26] MEDS: PANTOPRAZOLE SODIUM 40 MG VIAL IV SCH (09:19)
[2016-07-26] MEDS: SENNOSIDES SYRUP 8.8 MG/5 ML CUP OG-TUBE SCH (09:20)
[2016-07-26] MEDS: DOCUSATE SODIUM 100 MG CAP PO SCH ×2 (09:20→22:58)
[2016-07-26] MEDS: METOCLOPRAMIDE HCL 10 MG/2 ML VIAL IV PUSH SCH ×3 (09:20→23:57)
[2016-07-26 09:30] LABS: BANDS 9 % (0-6); EOSINOPHILS 3 % (0-4); METAMYELOCYTES 1 % (0-1); MYELOCYTES 2 % (0-0); NEUTROPHIL # MANUAL DIFF 8.3 TH/MM3 (1.8-7.7); POLYS (SEG NEUTROPHILS) 74 % (16-70); WBC DIFF SAMPLE 100
[2016-07-26 09:31] LABS: PLATELET ESTIMATE SMEAR LOW (NORMAL)
[2016-07-26 09:32] LABS: PLATELET MORPHOLOGY NORMAL (NORMAL); SCAN/DIFF FINAL DIFF MANUAL
--- NOTE | 2016-07-26 13:34 | HHI.NPPN ---
Subjective History of Present Illness 71-year-old male with past medical history of diabetes mellitus, hypertension, ischemic heart disease, peripheral neuropathy, chronic kidney disease, history of deep vein thrombosis, hyperlipidemia was brought to the hospital because of generalized weakness, confusion and vomiting and diarrhea. I was called to see the patient because of elevated BUN and creatinine. The patient has history of acute kidney injury in the past and chronic kidney disease. His creatinine was around 1.2 to 1.4, this was in 2012. Additional Remarks Patient is on the vent. and sedation, remain on CRRT, has low BP and on pressors , clinically same. Review of Systems General General Remarks Intubated and sedated. Objective Data Data 07/25/16 07/26/16 19:00 07:00 Intake Total 2346 ml 4062 ml Output Total 3346 ml 8481.0 ml Balance -1000 ml -4419.0 ml Intake IV Total 2346 ml 3889 ml Tube Feeding 173 ml Output Urine Total 100 ml 100 ml Gastric Drainage Total 0 ml Tube Feeding Residual Discard 150.0 ml Hemodialysis 3246 ml 8231 ml # Bowel Movements 0 Vital Signs Date Time Temp Pulse Resp B/P Pulse Ox O2 Delivery O2 Flow Rate FiO2 07/26/16 12:02 96 45 07/26/16 12:00 98.6 95 20 129/55 97 07/26/16 12:00 95 07/26/16 12:00 60 07/26/16 10:00 87 07/26/16 08:38 97 45 07/26/16 08:00 90 07/26/16 08:00 98.8 86 20 136/56 97 07/26/16 08:00 60 07/26/16 06:00 123/53 07/26/16 06:00 86 07/26/16 04:08 95 45 07/26/16 04:00 45 07/26/16 04:00 89 07/26/16 04:00 98.6 86 20 115/54 96 07/26/16 02:00 89 07/26/16 01:29 96 45 07/26/16 00:00 45 07/26/16 00:00 89 07/26/16 00:00 98.6 89 20 123/54 96 07/25/16 22:00 89 07/25/16 20:10 95 45 07/25/16 20:00 45 07/25/16 20:00 90 07/25/16 20:00 98.2 92 20 125/57 95 07/25/16 18:00 126/57 07/25/16 18:00 92 07/25/16 17:25 94 45 07/25/16 16:00 99.1 93 20 111/52 93 07/25/16 16:00 60 07/25/16 16:00 93 07/25/16 14:00 92 -: 07/26/16 0610 07/26/16 0610 Physical Exam Eyes Eye Exam: Pupils Equal Throat Throat Exam: Oral Mucosa [place] & Moist Neck Neck Exam: Neck Supple Pulmonary Resp Exam: Rhonchi, Decreased Bases, Diminished Breath Sounds, Poor Inspiratory Effort Cardiology CV Exam: Regular, Normal Sinus Rhythm Gastrointestinal/Abdomen GI Exam: Soft, Non-Tender, Bowel Sounds Present Extremeties Extremities Exam: Trace Edema Neurologic Neuro Exam: Unresponsive, Sedated Assessment/Plan Assessment Summary: ADALID/Acute Renal Failure Electrolyte Assessment: Metabolic Acidosis Problem List: (1) Diabetes mellitus with neuropathy (2) Leukocytosis (3) Peripheral vascular disease (4) Severe sepsis with acute organ dysfunction (5) History of DVT (deep vein thrombosis) (6) Hypoxia (7) Acidosis (8) Lactic acidosis Plan Patient has low urine out put. BP is still low, on pressors. BC results noted, seen by ID. Now on Unasyn and Clindamycin. To start CRRT, informed the HD RN and orders reviewed 1/2 NS with bicarb added K replaced, calcium replacement On Vasopressin K is low and replaced. Calcium is better. CPK also elevated, but improving. Continue same CRRT, remove fluid as tolerated. Problem Qualifiers (1) Diabetes mellitus with neuropathy: Qualified Code: E11.40 - Type 2 diabetes mellitus with diabetic neuropathy, unspecified joint terminal attack controller insulin use status (2) Leukocytosis: Qualified Code: D72.829 - Leukocytosis, unspecified type Nano Faustin MD July 26, 2016 13:34
[2016-07-26 18:26] LABS: POTASSIUM 4.3 MEQ/L (3.5-5.1)
[2016-07-26 18:45] LABS: CALCIUM-PROTEIN CORRECTED 7.7 MG/DL (8.5-10.1)
[2016-07-27] VITALS (18 sets, daily range): BP systolic 118–138; BP diastolic 50–59; PULSE 77–88; RESP 20; TEMP 97.2–99; O2SAT 96–99
[2016-07-27] MEDS ORDERED: PHARMACY ORDERED LAB ONE (00:45)
[2016-07-27] MEDS: INSULIN NovoLIN REGULAR SUPPLEMENTAL SCALE SQ SCH ×4 (00:54→19:00)
[2016-07-27] MEDS: AMPICILLIN-SULBACTAM INJ 1,500 MG in SODIUM CHLORIDE 0.9% INJ 100 ML IV SCH ×3 (02:12→17:12)
[2016-07-27] MEDS: SODIUM BICARBONATE 8.4% INJ 50 MEQ in SODIUM CHLOR 0.45% 1000 ML INJ 1,000 ML IV SCH ×9 (02:12→22:11)
[2016-07-27] MEDS: RESP: ALBUTEROL 2.5 MG/3 ML NEB (PRN) INH (03:57)
[2016-07-27] MEDS: CHLORHEXIDINE GLUCONATE 2 % 1 PACK (2 CLOTHS) TOP SCH (04:00)
[2016-07-27] MEDS: PROPOFOL 1000 MG/100 ML INJ 100 ML IV SCH ×3 (05:29→17:40)
[2016-07-27] MEDS: HYDROCORTISONE SOD SUCCINATE 100 MG VIAL IV PUSH SCH ×3 (05:29→22:11)
[2016-07-27] MEDS: CLINDAMYCIN INJ 900 MG in SODIUM CHLORIDE 0.9% INJ 100 ML IV SCH ×4 (05:30→22:11)
[2016-07-27] MEDS: CALCIUM GLUCONATE INJ 2 GM in SODIUM CHLORIDE 0.9% INJ 100 ML IV SCH ×3 (05:30→17:13)
[2016-07-27 05:51] LABS: BLOOD GAS BASE EXCESS -5.8 mmol/L (-2-2); BLOOD GAS CARBOXYHEMOGLOBIN 0.2 % (0-4); BLOOD GAS HCO3 19 mmol/L (22-26); BLOOD GAS METHEMOGLOBIN 1.1 % (0-2); BLOOD GAS O2 HGB SATURATION 95 % (90-100); BLOOD GAS OXYGEN CONTENT 10.8 Vol % (12.0-20.0); BLOOD GAS PCO2 33 mmHg (38-42); BLOOD GAS PO2 119 mmHg (61-120); BLOOD GAS TOTAL HGB 7.9 G/DL (12.0-16.0); TEMP CORR TO 98.6
[2016-07-27 05:52] LABS: CRITICAL VALUE NO; DRAW SITE ALINE; FIO2 45 %; OXYGEN DEVICE VENTILATOR; STAT NO; ULNAR PULSE PRESENT; VENT SETTINGS AC20/550/+10
[2016-07-27 06:20] LABS: AUTOMATED NEUTROPHIL # 8.4 TH/MM3 (1.8-7.7); BASOPHIL # 0.1 TH/MM3 (0-0.2); BASOPHIL % 0.6 % (0.0-2.0); EOSINOPHIL # 0.4 TH/MM3 (0-0.4); EOSINOPHIL % 3.8 % (0.0-4.0); HEMATOCRIT 22.7 % (39.0-51.0); LYMPH % 9.1 % (9.0-44.0); LYMPHOCYTE # 0.9 TH/MM3 (1.0-4.8); MEAN CELL VOLUME 88.6 FL (80.0-100.0); MEAN CORPUSCULAR HEMOGLOBIN 30.4 PG (27.0-34.0); MEAN CORPUSCULAR HGB CONC 34.3 % (32.0-36.0); MONO % 2.1 % (0.0-8.0); NEUT % 84.4 % (16.0-70.0); PLATELET COUNT 64 TH/MM3 (150-450); RED BLOOD COUNT 2.56 MIL/MM3 (4.50-5.90); RED CELL DISTRIBUTION WIDTH 14.2 % (11.6-17.2)
[2016-07-27 06:26] LABS: HEMO FLAGS AUTO DIFF
[2016-07-27 06:44] LABS: BICARBONATE 21.4 MEQ/L (21.0-32.0); MAGNESIUM 1.6 MG/DL (1.5-2.5); POTASSIUM 3.3 MEQ/L (3.5-5.1); TOTAL BILIRUBIN ADULT 0.6 MG/DL (0.2-1.0)
[2016-07-27 07:25] LABS: APTT (PATIENT) 31.5 SEC (24.3-30.1); INTERNATIONAL NORMALIZED RATIO 1.1 RATIO; PROTHROMBIN TIME - PATIENT 12.3 SEC (9.8-11.6)
[2016-07-27] MEDS: ASPIRIN 81 MG CHEW TAB CHEW SCH (09:00)
[2016-07-27] MEDS: DOCUSATE SODIUM 100 MG CAP PO SCH ×2 (09:00→21:00)
[2016-07-27 09:28] LABS: BANDS 16 % (0-6); EOSINOPHILS 4 % (0-4); MYELOCYTES 1 % (0-0); NEUTROPHIL # MANUAL DIFF 8.4 TH/MM3 (1.8-7.7); PLATELET ESTIMATE SMEAR LOW (NORMAL); PLATELET MORPHOLOGY NORMAL (NORMAL); POLYS (SEG NEUTROPHILS) 67 % (16-70); SCAN/DIFF FINAL DIFF MANUAL; WBC DIFF SAMPLE 100
[2016-07-27] MEDS: CHLORHEXIDINE 0.12% (ORAL KIT) 15 ML CUP MT SCH ×2 (10:03→20:51)
[2016-07-27] MEDS: PANTOPRAZOLE SODIUM 40 MG VIAL IV SCH (10:03)
[2016-07-27] MEDS: SODIUM CHLORIDE 0.9% FLUSH 10 ML FLUSH IV FLUSH SCH ×2 (10:03→22:34)
[2016-07-27] MEDS: METOCLOPRAMIDE HCL 10 MG/2 ML VIAL IV PUSH SCH ×2 (10:04→16:37)
[2016-07-27] MEDS: SENNOSIDES SYRUP 8.8 MG/5 ML CUP OG-TUBE SCH (10:04)
[2016-07-27] MEDS: SODIUM CHLORIDE 0.9% FLUSH 10 ML FLUSH IVF SCH (10:04)
--- NOTE | 2016-07-27 14:09 | HHI.NPPN ---
Subjective History of Present Illness 71-year-old male with past medical history of diabetes mellitus, hypertension, ischemic heart disease, peripheral neuropathy, chronic kidney disease, history of deep vein thrombosis, hyperlipidemia was brought to the hospital because of generalized weakness, confusion and vomiting and diarrhea. I was called to see the patient because of elevated BUN and creatinine. The patient has history of acute kidney injury in the past and chronic kidney disease. His creatinine was around 1.2 to 1.4, this was in 2012. Additional Remarks Patient is on the vent. and sedation, remain on CRRT, has low BP and on pressors , clinically same. Review of Systems General General Remarks Intubated and sedated. Objective Data Data 07/26/16 07/27/16 19:00 07:00 Intake Total 1794 ml 2767 ml Output Total 2125 ml 3973 ml Balance -331 ml -1206 ml Intake IV Total 1655 ml 2258 ml Tube Feeding 139 ml 509 ml Output Urine Total 70 ml 175 ml Hemodialysis 2055 ml 3798 ml # Bowel Movements 1 3 Vital Signs Date Time Temp Pulse Resp B/P Pulse Ox O2 Delivery O2 Flow Rate FiO2 07/27/16 11:48 99 45 07/27/16 10:00 81 07/27/16 08:00 83 07/27/16 08:00 45 07/27/16 08:00 99.0 83 20 131/55 98 07/27/16 07:56 98 45 07/27/16 07:30 45 07/27/16 06:00 118/56 07/27/16 06:00 83 07/27/16 04:00 45 07/27/16 04:00 98.6 82 20 120/50 99 07/27/16 04:00 82 07/27/16 03:58 97 45 07/27/16 02:00 80 07/27/16 00:16 98 50 07/27/16 00:00 81 07/27/16 00:00 98.1 81 20 135/59 98 07/27/16 00:00 45 07/26/16 22:00 82 07/26/16 21:29 98 50 07/26/16 20:00 82 07/26/16 20:00 98.6 86 20 131/58 97 07/26/16 20:00 45 07/26/16 18:00 126/57 07/26/16 18:00 86 07/26/16 17:43 97 45 07/26/16 16:00 60 07/26/16 16:00 98.8 83 20 108/51 96 07/26/16 16:00 83 -: 07/27/16 0600 07/27/16 0600 Physical Exam Eyes Eye Exam: Pupils Equal Throat Throat Exam: Oral Mucosa [place] & Moist Neck Neck Exam: Neck Supple Pulmonary Resp Exam: Rhonchi, Decreased Bases, Diminished Breath Sounds, Poor Inspiratory Effort Cardiology CV Exam: Regular, Normal Sinus Rhythm Gastrointestinal/Abdomen GI Exam: Soft, Non-Tender, Bowel Sounds Present Extremeties Extremities Exam: Trace Edema Neurologic Neuro Exam: Unresponsive, Sedated Assessment/Plan Assessment Summary: ADAILD/Acute Renal Failure Electrolyte Assessment: Metabolic Acidosis Problem List: (1) Diabetes mellitus with neuropathy (2) Leukocytosis (3) Peripheral vascular disease (4) Severe sepsis with acute organ dysfunction (5) History of DVT (deep vein thrombosis) (6) Hypoxia (7) Acidosis (8) Lactic acidosis Plan Patient has low urine out put. BP is has improved on vasopressin pressor. BC results noted, seen by ID. Now on Unasyn and Clindamycin. CRRT, informed the HD RN and orders reviewed 1/2 NS with bicarb added K replace, calcium replacement Net UF at 150 cc/hr CPK also elevated, but improving. Continue same CRRT, remove fluid as tolerated. May clot off dialyzer then switch to HD by tomorrow Dr. Mendez to follow Problem Qualifiers (1) Diabetes mellitus with neuropathy: Qualified Code: E11.40 - Type 2 diabetes mellitus with diabetic neuropathy, unspecified manager terminal insulin use status (2) Leukocytosis: Qualified Code: D72.829 - Leukocytosis, unspecified type Nano Faustin MD July 27, 2016 14:09
[2016-07-27] MEDS ORDERED: POTASSIUM CHLOR 40 MEQ PREMIX 100 ML IV ONE (14:15)
--- NOTE | 2016-07-27 16:08 | HHI.CCPN ---
Subjective Remarks/Hospital Course 71-year-old male. Date of admission 07/20/2016. Past records includes diabetes with neuropathy and nephropathy, hypertension, dyslipidemia, chronic pain syndrome, history of DVT/PE on chronic anticoagulation, peripheral vascular disease with history of AAA, and osteoporosis. Patient recently C [place] 07/06/16. Patient sick contacts would include neighbor with "vital illness. Patient is to [facility] today with acute onset of diarrhea, hypoglycemia and chills. Upon arrival, patient was noted be acutely hypoxic and required a nonrebreather mask. Patient denies pleuritic chest pain , abdominal pain but positive for nausea and diarrhea. CT chest revealed bilateral lower lobe scarring, bilateral adrenal adenomas a nonspecific bowel gas pattern. Chest x-ray revealed no significant findings. Lab work included a lactic acid elevated 7.7, white blood cell count 12,000 in acute kidney injury with a creatinine of 3.0. Baseline around 1.5-2. Troponin was slightly elevated 0.14. EKG is currently pending. Upon arrival to [facility], patient was extremely mottled with rates in the 40s. Patient was emergently intubated please see note and a left IJ central line was placed. CT of the head, abdomen and pelvis currently pending. 07/21 Patient is sedated with Diprivan and Fentanyl and intubated. On Levophed 22 mics, Vasopressin and bicarb drip. BC from 07/20: GPC all 4 bottles. 07/22 Patient remains sedated and intubated On Levophed 22 mics, vasopressin and bicarb drip. Awaiting to start CVVHD today 07/23: Remains sedated, orally intubated on mech ventilation. On Levophed 15 mics per minute and low-dose vasopressin for pressor support. On CRRT. 07/24: Remains sedated, orally intubated on mechanical ventilation. On Levophed 7 mics per minute and low-dose vasopressin for pressor support. CRRT was stopped at 1:30 AM due to Air in system and has now been resumed. 2 Amps of bicarbonate given for metabolic acidosis while CRRT held and bicarbonate drip was started back yesterday 07/25: Remains critically ill, on CVVH. Levoped 6 mics per minute. White count has normalized, making slight amount of urine. Showing some signs of progress 07/26: Remains sedated, orally intubated on mechanical ventilation. Remains on Levophed 3 mics per minute, vasopressin 0.03 mics per minute. CRRT continues. 07/27: Remains sedated, orally intubated on mechanical ventilation. Remains on Levophed 2 mics per minute, vasopressin 0.03 mics per minute. On CRRT. Objective Vital Signs Date Time Temp Pulse Resp B/P Pulse Ox O2 Delivery O2 Flow Rate FiO2 07/27/16 15:33 99 55 07/27/16 14:00 77 07/27/16 12:00 97.5 20 136/52 Intake and Output 07/26/16 07/26/16 07/27/16 08:00 16:00 00:00 Intake Total 2090 ml 1794 ml 1547 ml Output Total 4627 ml 2125 ml 2200 ml Balance -2537 ml -331 ml -653 ml Result Diagram: 07/27/16 0600 07/27/16 0600 Other Results Laboratory Tests Test 07/26/16 07/27/16 07/27/16 17:23 04:49 06:00 Sodium Level 140 MEQ/L 139 MEQ/L Potassium Level 4.3 MEQ/L 3.3 MEQ/L Chloride Level 107 MEQ/L 104 MEQ/L Carbon Dioxide Level 18.0 MEQ/L 21.4 MEQ/L Anion Gap 15 MEQ/L 14 MEQ/L Blood Urea Nitrogen 67 MG/DL 74 MG/DL Creatinine 3.07 MG/DL 3.28 MG/DL Estimat Glomerular Filtration 20 ML/MIN 19 ML/MIN Rate Random Glucose 183 MG/DL 152 MG/DL Calcium Level 7.2 MG/DL 6.6 MG/DL Protein Corrected Calcium 7.7 MG/DL 7.0 MG/DL Total Protein 6.2 GM/DL 6.2 GM/DL Blood Gas Puncture Site RENAE Blood Gas Patient Temperature 98.6 Blood Gas HCO3 19 mmol/L Blood Gas Base Excess -5.8 mmol/L Blood Gas Oxygen Saturation 95 % Arterial Blood pH 7.37 Arterial Blood Partial 33 mmHg Pressure CO2 Arterial Blood Partial 119 mmHg Pressure O2 Arterial Blood Oxygen Content 10.8 Vol % Arterial Blood 0.2 % Carboxyhemoglobin Arterial Blood Methemoglobin 1.1 % Blood Gas Hemoglobin 7.9 G/DL Oxygen Delivery Device VENTILATOR Blood Gas Ventilator Setting AC20/550/+10 Blood Gas Inspired Oxygen 45 % White Blood Count 10.0 TH/MM3 Red Blood Count 2.56 MIL/MM3 Hemoglobin 7.8 GM/DL Hematocrit 22.7 % Mean Corpuscular Volume 88.6 FL Mean Corpuscular Hemoglobin 30.4 PG Mean Corpuscular Hemoglobin 34.3 % Concent Red Cell Distribution Width 14.2 % Platelet Count 64 TH/MM3 Mean Platelet Volume 10.1 FL Neutrophils (%) (Auto) 84.4 % Lymphocytes (%) (Auto) 9.1 % Monocytes (%) (Auto) 2.1 % Eosinophils (%) (Auto) 3.8 % Basophils (%) (Auto) 0.6 % Neutrophils # (Auto) 8.4 TH/MM3 Lymphocytes # (Auto) 0.9 TH/MM3 Monocytes # (Auto) 0.2 TH/MM3 Eosinophils # (Auto) 0.4 TH/MM3 Basophils # (Auto) 0.1 TH/MM3 CBC Comment AUTO DIFF Differential Total Cells 100 Counted Neutrophils % (Manual) 67 % Band Neutrophils % 16 % Lymphocytes % 11 % Monocytes % 1 % Eosinophils % 4 % Neutrophils # (Manual) 8.4 TH/MM3 Myelocytes 1 % Differential Comment FINAL DIFF MANUAL Platelet Estimate LOW Platelet Morphology Comment NORMAL Prothrombin Time 12.3 SEC Prothromb Time International 1.1 RATIO Ratio Activated Partial 31.5 SEC Thromboplast Time Fibrinogen 604 mg/dL Lactic Acid Level 0.6 mmol/L Phosphorus Level 4.9 MG/DL Magnesium Level 1.6 MG/DL Total Bilirubin 0.6 MG/DL Aspartate Amino Transf 30 U/L (AST/SGOT) Alanine Aminotransferase 29 U/L (ALT/SGPT) Alkaline Phosphatase 80 U/L Albumin 1.4 GM/DL Imaging Last 24 hours Impressions Chest X-Ray 07/26/16 06 Signed Impressions: Service Date/Time: Tuesday, July 26, 2016 04:56 - CONCLUSION: No significant change. Jovan Aldridge MD Last 48 hours Impressions Abdomen X-Ray 07/24/16 0749 Signed Impressions: Service Date/Time: July 08:28 - CONCLUSION: Air-filled bowel loops centrally but no obstruction seen. Uli Atkins MD Chest X-Ray 07/24/16 0600 Signed Impressions: Service Date/Time: July 05:36 - CONCLUSION: Unchanged bibasilar infiltrates. Omer Cheng Jr., MD Last Impressions Chest X-Ray 07/21/16 Signed Impressions: Service Date/Time: Thursday, July 21, 2016 22:13 - CONCLUSION: Satisfactory central line positioning. Worsening aeration. [place] Guillermo MD Renal Ultrasound 07/20/16 Signed Impressions: Service Date/Time: Wednesday, July 20, 2016 14:32 - CONCLUSION: 1. No acute findings. Renal ultrasound unremarkable. Bladder was not well-visualized. Jose Martin Valderrama MD Lower Extremity Ultrasound 07/20/16 Signed Impressions: Service Date/Time: Wednesday, July 20, 2016 14:39 - CONCLUSION: Negative exam with no evidence of deep venous thrombosis. Alonzo Bradshaw MD Head CT 07/20/16 Signed Impressions: Service Date/Time: Wednesday, July 20, 2016 18:21 - CONCLUSION: 1. No acute intracranial abnormalities. Mild mucosal thickening of the ethmoid air cells. Jose Martin Valderrama MD Chest CT 07/20/16 Signed Impressions: Service Date/Time: Wednesday, July 20, 2016 11:28 - CONCLUSION: 1. Chronic scarring in the lung bases left greater than right. 2. No focal consolidation. 3. Bilateral adrenal masses left greater than right most consistent with adenomas. 4. Nonspecific bowel gas pattern noted in the upper abdomen with air-fluid levels in the small bowel. Alonzo Brdashaw MD Abdomen/Pelvis CT 07/20/16 Signed Impressions: Service Date/Time: Wednesday, July 20, 2016 18:24 - CONCLUSION: 1. Lower abdominal ventral midline hernia containing loop of small bowel. Small bowel is mildly distended somewhat diffusely with fluid and air. Cannot exclude a low grade partial bowel obstruction in the area of herniation. 2. No abnormal fluid collections to suggest abscess. No free air or free fluid. 3. Basilar and dependent lung consolidation, left greater than right. Pneumonia could have this appearance. Small left effusion. 4. NG tip in stomach. Inferior vena cava filter present. Connelly catheter in bladder. Jose Martin Valderrama MD Objective Remarks Drips: Levophed/vasopressin/propofol/fentanyl CRRT: net -150cc/hr Flow Trac: SVV 2 GENERAL: Patient is 71 yo critically ill intubated and sedated. SKIN: Warm and dry. HEAD: Normocephalic. EYES: Pallor present. No scleral icterus. No injection or drainage. NECK: Supple, trachea midline. No JVD or lymphadenopathy. CARDIOVASCULAR: Regular rate and rhythm without murmurs, gallops, or rubs. RESPIRATORY: Orally intubated on mechanical ventilation, Breath sounds equal bilaterally. Scattered rhonchi, no wheezing. GASTROINTESTINAL: Abdomen soft, non-tender, nondistended. Bowel sounds sluggish Neuro: Sedated, intubated. Not a candidate for daily sedation vacation yet Extremities: Warm bilaterally, Bilateral edema Urinary Catheter: Yes Assessment to: Continue Line: Central Venous Catheter A/P Assessment and Plan Neuro/Psych: Peripheral neuropathy Chronic pain syndrome Patient is currently on propofol/fentanyl drips for sedation/analgesia while intubated. Ativan IV when necessary for sedation. Goal of RASS -2 Daily sedation vacation once hemodynamically and clinically more stable 07/20 CT brain: No acute intracranial abnormalities. CV: Elevated troponin Hypertension Dyslipidemia Lactic acidosis Peripheral vascular disease History of AAA Continue with pressors( Levophed/ vasopressin) to keep MAP>65mmHg Serial lactic acid monitoring. Flotrac for hemodynamic monitoring. On Stress dose steroids- HC 50mg IV Q8 Continue with ASA daily Echo showed EF 35-40% Resp: Acute hypoxemic respiratory failure Tobaccoism Continue with vent support keep sat >92% Ventilator bundle Bronchodilator therapy every 4 hours with albuterol every 2 hours. Hold off on spontaneous breathing trials due to vasopressor use and metabolic acidosis. CT chest 07/20 revealed left greater than right basilar scarring. Bilateral adrenal adenomas. No focal consolidation GI: Continue tube feeds- Nepro with goal rate 40ml/hr Reglan 5 mg IV every 8 hours Protonix for GI prophylaxis Colace/as needed Senokot for bowel regimen CT abdomen reviewed. Gen surgery- Dr Roman- no surgical interventions. : Strict intake output, monitor and replete electrolytes, follow BUN/creatinine. Started CRRT on 07/22, being followed by nephrology Dr. 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 Thrombocytopenia noted, probably secondary to sepsis. HIT screen negative. Consult hematology if platelet count not improving. ID: Continue with abx per ID (Unasyn, Clindamycin, vanco x 1 dose) monitor for signs of infections - Pertinent cultures BC 07/20- GPC, Group A Beta strep Urine cx 07/20 : neg Strep pneumonia nad Legionella urinary Ag negative Follow up on Sputum cx, BC 07/21, 07/22- NGTD MSK: Osteoarthritis Holding vitamin D 1000 units by mouth daily. Access - Left IJ CVL placed 07/20, Art line placed 07/21 -Right IJ vascath placed 07/22 Prophylaxis - GI - Protonix - DVT - SCD/heparin SQ - Doppler US LE negative for DVT Palliative care is following Patient is critically ill with resp failure, renal failure, septic shock and multiorgan injury. Prognosis guarded. Updated patient's and daughter at bedside on 07/26 regarding current clinical condition and plan of care and they voiced understanding. I have also explained possible need for tracheostomy and PEG tube in about 2 weeks since getting intubated if aggressive care desired at that time. D/W [employer] wrapper: The total critical care time was 40 minutes. Time to perform other separately billable procedures was not included in the critical care time. Roman Hicks MD July 27, 2016 16:08
--- NOTE | 2016-07-27 18:10 | HHI.IDPN ---
Note Infectious Disease Note ID COVERAGE: Notes reviewed D/W RN Sedated on the vent Remains on pressors - levophed. Occasional low grade temp. On CVVHD 71-year-old male admitted to the hospital for acute onset of diarrhea, chills and hypoglycemia. Antibiotics Unasyn Clindamycin Lines LIJ TLC RIJ vascath Past Medical History Hypertension Diabetes mellitus Ischemic heart disease Hyperlipidemia History of deep venous thrombosis Peripheral vascular disease Chronic kidney disease Arthritis Past Surgical History Bowel surgery Appendectomy Allergies: Coded Allergies: No Known Allergies (Verified , 07/20/16) Objective . Vital Signs Date Time Temp Pulse Resp B/P Pulse Ox O2 Delivery O2 Flow Rate FiO2 07/27/16 16:00 82 07/27/16 16:00 97.2 82 20 138/51 99 07/27/16 16:00 55 07/27/16 15:33 99 55 07/27/16 14:00 77 07/27/16 13:45 60 07/27/16 13:30 60 07/27/16 12:00 77 07/27/16 12:00 97.5 77 20 136/52 99 07/27/16 12:00 45 07/27/16 11:48 99 45 07/27/16 10:00 81 07/27/16 08:00 83 07/27/16 08:00 45 07/27/16 08:00 99.0 83 20 131/55 98 07/27/16 07:56 98 45 07/27/16 07:30 45 07/27/16 06:00 118/56 07/27/16 06:00 83 07/27/16 04:00 45 07/27/16 04:00 98.6 82 20 120/50 99 07/27/16 04:00 82 07/27/16 03:58 97 45 07/27/16 02:00 80 07/27/16 00:16 98 50 07/27/16 00:00 81 07/27/16 00:00 98.1 81 20 135/59 98 07/27/16 00:00 45 07/26/16 22:00 82 07/26/16 21:29 98 50 07/26/16 20:00 82 07/26/16 20:00 98.6 86 20 131/58 97 07/26/16 20:00 45 07/26/16 07/26/16 07/27/16 15:00 23:00 07:00 Intake Total 1794 ml 1547 ml 1220 ml Output Total 2125 ml 2200 ml 1773 ml Balance -331 ml -653 ml -553 ml Intake IV Total 1655 ml 1263 ml 995 ml Tube Feeding 139 ml 284 ml 225 ml Output Urine Total 70 ml 75 ml 100 ml Hemodialysis 2055 ml 2125 ml 1673 ml # Bowel Movements 1 2 1 Laboratory Tests Test 07/26/16 07/27/16 06:10 06:00 White Blood Count 9.6 TH/MM3 10.0 TH/MM3 Red Blood Count 2.70 MIL/MM3 2.56 MIL/MM3 Hemoglobin 8.3 GM/DL 7.8 GM/DL Hematocrit 23.8 % 22.7 % Mean Corpuscular Volume 88.2 FL 88.6 FL Mean Corpuscular Hemoglobin 30.9 PG 30.4 PG Mean Corpuscular Hemoglobin 35.0 % 34.3 % Concent Red Cell Distribution Width 14.1 % 14.2 % Platelet Count 56 TH/MM3 64 TH/MM3 Mean Platelet Volume 9.5 FL 10.1 FL Neutrophils (%) (Auto) 84.3 % 84.4 % Lymphocytes (%) (Auto) 10.0 % 9.1 % Monocytes (%) (Auto) 3.0 % 2.1 % Eosinophils (%) (Auto) 2.4 % 3.8 % Basophils (%) (Auto) 0.3 % 0.6 % Neutrophils # (Auto) 8.1 TH/MM3 8.4 TH/MM3 Lymphocytes # (Auto) 1.0 TH/MM3 0.9 TH/MM3 Monocytes # (Auto) 0.3 TH/MM3 0.2 TH/MM3 Eosinophils # (Auto) 0.2 TH/MM3 0.4 TH/MM3 Basophils # (Auto) 0.0 TH/MM3 0.1 TH/MM3 CBC Comment AUTO DIFF AUTO DIFF Differential Total Cells 100 100 Counted Neutrophils % (Manual) 74 % 67 % Band Neutrophils % 9 % 16 % Lymphocytes % 11 % 11 % Eosinophils % 3 % 4 % Neutrophils # (Manual) 8.3 TH/MM3 8.4 TH/MM3 Metamyelocytes 1 % Myelocytes 2 % 1 % Differential Comment FINAL DIFF FINAL DIFF MANUAL MANUAL Platelet Estimate LOW LOW Platelet Morphology Comment NORMAL NORMAL Monocytes % 1 % Laboratory Tests Test 07/26/16 07/26/1607/27/17 06:10 17:23 06:00 Sodium Level 143 MEQ/L 140 MEQ/L 139 MEQ/L Potassium Level 3.1 MEQ/L 4.3 MEQ/L 3.3 MEQ/L Chloride Level 109 MEQ/L 107 MEQ/L 104 MEQ/L Carbon Dioxide Level 22.1 MEQ/L 18.0 MEQ/L 21.4 MEQ/L Anion Gap 12 MEQ/L 15 MEQ/L 14 MEQ/L Blood Urea Nitrogen 63 MG/DL 67 MG/DL 74 MG/DL Creatinine 3.22 MG/DL 3.07 MG/DL 3.28 MG/DL Estimat Glomerular Filtration 19 ML/MIN 20 ML/MIN 19 ML/MIN Rate Random Glucose 115 MG/DL 183 MG/DL 152 MG/DL Lactic Acid Level 0.7 mmol/L 0.6 mmol/L Calcium Level 7.2 MG/DL 7.2 MG/DL 6.6 MG/DL Protein Corrected Calcium 7.8 MG/DL 7.7 MG/DL 7.0 MG/DL Magnesium Level 1.6 MG/DL 1.6 MG/DL Total Bilirubin 0.6 MG/DL 0.6 MG/DL Aspartate Amino Transf 24 U/L 30 U/L (AST/SGOT) Alanine Aminotransferase 29 U/L 29 U/L (ALT/SGPT) Alkaline Phosphatase 67 U/L 80 U/L Total Protein 5.9 GM/DL 6.2 GM/DL 6.2 GM/DL Albumin 1.5 GM/DL 1.4 GM/DL Phosphorus Level 4.9 MG/DL Imaging Chest X-Ray 07/26/16 0600 Signed Impressions: Service Date/Time: Tuesday, July 26, 2016 04:56 - CONCLUSION: No significant change. Jovan Aldridge MD Abdomen X-Ray 07/24/16 0749 Signed Impressions: Service Date/Time: July 08:28 - CONCLUSION: Air-filled bowel loops centrally but no obstruction seen. Uli Atkins MD Chest X-Ray 07/24/16 0600 Signed Impressions: Service Date/Time: July 05:36 - CONCLUSION: Unchanged bibasilar infiltrates. Omer Cheng Jr., MD Chest X-Ray 07/21/16 0000 Signed Impressions: Service Date/Time: Thursday, July 21, 2016 22:13 - CONCLUSION: Satisfactory central line positioning. Worsening aeration. [place] Guillermo MD Renal Ultrasound 07/20/16 Signed Impressions: Service Date/Time: Wednesday, July 20, 2016 14:32 - CONCLUSION: 1. No acute findings. Renal ultrasound unremarkable. Bladder was not well-visualized. Jose Martin Valderrama MD Lower Extremity Ultrasound 07/20/16 Signed Impressions: Service Date/Time: Wednesday, July 20, 2016 14:39 - CONCLUSION: Negative exam with no evidence of deep venous thrombosis. Alonzo Bradshaw MD Head CT 07/20/16 Signed Impressions: Service Date/Time: Wednesday, July 20, 2016 18:21 - CONCLUSION: 1. No acute intracranial abnormalities. Mild mucosal thickening of the ethmoid air cells. Jose Martin Valderrama MD Chest CT 07/20/16 Signed Impressions: Service Date/Time: Wednesday, July 20, 2016 11:28 - CONCLUSION: 1. Chronic scarring in the lung bases left greater than right. 2. No focal consolidation. 3. Bilateral adrenal masses left greater than right most consistent with adenomas. 4. Nonspecific bowel gas pattern noted in the upper abdomen with air-fluid levels in the small bowel. Alonzo Bradshaw MD Abdomen/Pelvis CT 07/20/16 Signed Impressions: Service Date/Time: Wednesday, July 20, 2016 18:24 - CONCLUSION: 1. Lower abdominal ventral midline hernia containing loop of small bowel. Small bowel is mildly distended somewhat diffusely with fluid and air. Cannot exclude a low grade partial bowel obstruction in the area of herniation. 2. No abnormal fluid collections to suggest abscess. No free air or free fluid. 3. Basilar and dependent lung consolidation, left greater than right. Pneumonia could have this appearance. Small left effusion. 4. NG tip in stomach. Inferior vena cava filter present. Connelly catheter in bladder. Jose Martin aVlderrama MD Physical Exam GENERAL: sedated and intubated, NAD SKIN: Cool and dry. No generalized rash, no mottling. HEENT: Atraumatic. Normocephalic. No scleral icterus. No injection or drainage. CARDIOVASCULAR: Regular rate and rhythm without murmurs, gallops, or rubs. RESPIRATORY: Decreased breath sounds at the bases. GASTROINTESTINAL: Abdomen soft, globular, bowel sounds are present and normoactive. MUSCULOSKELETAL: Extremities without clubbing, cyanosis, or edema. . Feet warm. No joint effusion, or edema noted. NEUROLOGICAL: Sedated on the vent PSYCH: Unable to assess LINE: LIJ and RIJ lines with no evidence of infection : Connelly in place, urine looks clear IMPRESSION Group A Strep sepsis, with shock, MOSF, present on admission, source? - ?primary bacteremia Respiratory failure Renal failure, on CVVHD Thrombocytopenia due to sepsis, no DIC Known DM, HTN, PVD, CAD RECOMMENDATION Follow C/S Continue IV Unasyn Also on Clindamycin. On CVVHD Monitor progress Remains critically ill Emeterio Parsons MD July 27, 2016 18:10
[2016-07-27] MEDS: VASOPRESSIN 40 U/100 ML D5W Titrate, Post Cardiac Surgery IV SCH ×2 (21:13)
[2016-07-28] VITALS (20 sets, daily range): BP systolic 110–166; BP diastolic 50–74; PULSE 67–98; RESP 20; TEMP 96.4–99.3; O2SAT 96–100
[2016-07-28] MEDS: CALCIUM GLUCONATE INJ 2 GM in SODIUM CHLORIDE 0.9% INJ 100 ML IV SCH ×4 (00:08→16:33)
[2016-07-28] MEDS: SODIUM BICARBONATE 8.4% INJ 50 MEQ in SODIUM CHLOR 0.45% 1000 ML INJ 1,000 ML IV SCH ×8 (00:09→15:36)
[2016-07-28] MEDS: METOCLOPRAMIDE HCL 10 MG/2 ML VIAL IV PUSH SCH ×3 (01:12→16:33)
[2016-07-28] MEDS: AMPICILLIN-SULBACTAM INJ 1,500 MG in SODIUM CHLORIDE 0.9% INJ 100 ML IV SCH ×3 (01:13→16:32)
[2016-07-28] MEDS: INSULIN NovoLIN REGULAR SUPPLEMENTAL SCALE SQ SCH ×4 (01:31→17:48)
[2016-07-28] MEDS: PROPOFOL 1000 MG/100 ML INJ 100 ML IV SCH ×4 (01:38→16:32)
--- NOTE | 2016-07-28 03:47 | RADRPT ---
EXAM DATE/TIME: 07/28/2016 03:09 [facility] COMPARISON: CHEST SINGLE AP, July 26, 2016, 4:56. INDICATIONS : Shortness of breath. MEDICAL HISTORY : Congestive heart failure. Diabetes mellitus type II. SURGICAL HISTORY : None. ENCOUNTER: Subsequent ACUITY: 1 week PAIN SCORE: Non-responsive. LOCATION: Bilateral chest FINDINGS: A single AP semierect view of the chest was obtained and demonstrates endotracheal tube in place with the tip 4 cm above the krissy. A nasogastric tube is again seen coursing through the esophagus into the stomach. The right internal jugular central venous line and left internal jugular central venous line remain in place. Hazy perihilar and bibasilar opacities are present. The heart size is mildly pr ominent. There are multiple overlying electrocardiogram leads and oxygen tubing. CONCLUSION: No significant change. Hazy opacity remains in both lungs most consistent with congestive heart failu re. Alonzo Bradshaw MD on July 28, 2016 at 3:45 Board Certified Radiologist. This report was verified electronically.
[2016-07-28] MEDS: CHLORHEXIDINE GLUCONATE 2 % 1 PACK (2 CLOTHS) TOP SCH (03:48)
[2016-07-28 04:00] LABS: AUTOMATED NEUTROPHIL # 9.2 TH/MM3 (1.8-7.7); BASOPHIL % 0.2 % (0.0-2.0); EOSINOPHIL % 0.3 % (0.0-4.0); HEMATOCRIT 23.5 % (39.0-51.0); LYMPH % 4.2 % (9.0-44.0); LYMPHOCYTE # 0.4 TH/MM3 (1.0-4.8); MEAN CELL VOLUME 89.5 FL (80.0-100.0); MEAN CORPUSCULAR HEMOGLOBIN 30.8 PG (27.0-34.0); MEAN CORPUSCULAR HGB CONC 34.4 % (32.0-36.0); MONO % 2.2 % (0.0-8.0); NEUT % 93.1 % (16.0-70.0); PLATELET COUNT 79 TH/MM3 (150-450); RED BLOOD COUNT 2.62 MIL/MM3 (4.50-5.90); RED CELL DISTRIBUTION WIDTH 14.4 % (11.6-17.2); WHITE BLOOD COUNT 9.9 TH/MM3 (4.0-11.0)
[2016-07-28 04:06] LABS: HEMO FLAGS AUTO DIFF
[2016-07-28 04:22] LABS: BICARBONATE 20.7 MEQ/L (21.0-32.0); MAGNESIUM 1.7 MG/DL (1.5-2.5); POTASSIUM 3.8 MEQ/L (3.5-5.1); TOTAL BILIRUBIN ADULT 0.7 MG/DL (0.2-1.0)
[2016-07-28 04:28] LABS: CALCIUM-PROTEIN CORRECTED 7.3 MG/DL (8.5-10.1)
[2016-07-28] MEDS: CLINDAMYCIN INJ 900 MG in SODIUM CHLORIDE 0.9% INJ 100 ML IV SCH ×3 (05:07→16:32)
[2016-07-28] MEDS: HYDROCORTISONE SOD SUCCINATE 100 MG VIAL IV PUSH SCH ×3 (05:08→23:34)
[2016-07-28 05:09] LABS: PLATELET ESTIMATE SMEAR LOW (NORMAL); PLATELET MORPHOLOGY NORMAL (NORMAL); SCAN/DIFF AUTO DIFF CONFIRMED
[2016-07-28 08:24] LABS: APTT (PATIENT) 29.1 SEC (24.3-30.1)
[2016-07-28] MEDS: SODIUM CHLORIDE 0.9% FLUSH 10 ML FLUSH IVF SCH (09:00)
[2016-07-28] MEDS: SENNOSIDES SYRUP 8.8 MG/5 ML CUP OG-TUBE SCH (09:00)
[2016-07-28] MEDS: DOCUSATE SODIUM 100 MG CAP PO SCH ×2 (09:00→21:00)
[2016-07-28] MEDS: SODIUM CHLORIDE 0.9% FLUSH 10 ML FLUSH IV FLUSH SCH ×2 (09:00→21:00)
[2016-07-28] MEDS: PANTOPRAZOLE SODIUM 40 MG VIAL IV SCH (09:04)
[2016-07-28] MEDS: CHLORHEXIDINE 0.12% (ORAL KIT) 15 ML CUP MT SCH ×2 (09:04→20:00)
[2016-07-28] MEDS: ASPIRIN 81 MG CHEW TAB CHEW SCH (09:07)
--- NOTE | 2016-07-28 11:40 | HHI.IDPN ---
Subjective Subjective Remarks ID Xcover for Dr Niño chart reviewed dw pt's spdanyae dw RN 71-year-old male admitted to the hospital for acute onset of diarrhea, chills and hypoglycemia. Patient apparently working in the yard July 18 and July 19. He was doing okay except for complaints on his lower extremity which is apparently chronic and related to his peripheral vascular disease. That night, the noted that the patient was breathing hard. She asked the patient and he stated that he is not short of breath. He has not complained of any sore throat, has not been congested, and has eaten without any problem. He has not had any urinary complaints. That night apparently the couldn't sleep, and around 4 :00 in the morning the patient woke up and stated that he wanted to go to the bathroom. Patient didn't make it, and had stool incontinence. He was noted to have some chills, and his blood sugars were low. He also had episode of vomiting. Patient was taken to the hospital, and since admission he is developed profound hypotension, and acidosis. He ended up getting intubated, and currently on Levophed and vasopressin. His white count is elevated, lactic acid elevated, and his creatinine is also quite elevated. His urine output has been low. Cultures done in the emergency room, are now reported as growing group A strep. Source is not established to date pt remains sedated on the vent and got very agitated during sedation Remains on vasopressin pt was on warming blanket yday no fever today + diarrhea tolerating tube feeds + elizondo secretions Off CVVHD UO low, nephrology ff, likely HD unless marked improvement of renal fnx Antibiotics Unasyn clindamycin Lines LIJ TLC RIJ vascath Past Medical History Hypertension Diabetes mellitus Ischemic heart disease Hyperlipidemia History of deep venous thrombosis Peripheral vascular disease Chronic kidney disease Arthritis Past Surgical History Bowel surgery Appendectomy Allergies: Coded Allergies: No Known Allergies (Verified , 07/20/16) Objective . Vital Signs Date Time Temp Pulse Resp B/P Pulse Ox O2 Delivery O2 Flow Rate FiO2 07/28/16 10:00 82 07/28/16 09:47 96 40 07/28/16 08:00 45 07/28/16 08:00 70 07/28/16 08:00 97.3 70 20 98 130/50 07/28/16 06:41 97.0 07/28/16 06:00 67 127/51 110/56 07/28/16 06:00 67 07/28/16 05:30 45 07/28/16 05:00 96.4 07/28/16 04:08 100 45 07/28/16 04:00 96.8 77 20 100 153/60 07/28/16 04:00 55 07/28/16 04:00 77 07/28/16 02:00 70 07/28/16 01:10 100 55 07/28/16 00:00 97.3 86 20 153/74 100 166/69 07/28/16 00:00 86 166/64 153/74 07/28/16 00:00 86 07/28/16 00:00 55 07/27/16 22:00 88 07/27/16 20:00 87 07/27/16 20:00 97.7 87 20 137/57 97 07/27/16 20:00 55 07/27/16 19:53 96 55 07/27/16 18:00 136/53 07/27/16 18:00 81 07/27/16 16:00 82 07/27/16 16:00 97.2 82 20 138/51 99 07/27/16 16:00 55 07/27/16 15:33 99 55 07/27/16 14:00 77 07/27/16 13:45 60 07/27/16 13:30 60 07/27/16 12:00 77 07/27/16 12:00 97.5 77 20 136/52 99 07/27/16 12:00 45 07/27/16 11:48 99 45 07/27/16 07/27/16 07/28/16 15:00 23:00 07:00 Intake Total 1009 ml 1180 ml 987 ml Output Total 1866 ml 2222 ml 2066 ml Balance -857 ml -1042 ml -1079 ml Intake IV Total 753 ml 882 ml 742 ml Tube Feeding 256 ml 298 ml 245 ml Output Urine Total 50 ml 100 ml 40 ml Hemodialysis 1816 ml 2122 ml 2026 ml # Bowel Movements 1 1 2 . Laboratory Tests Test 07/27/16 07/28/16 06:00 03:49 White Blood Count 10.0 TH/MM3 9.9 TH/MM3 Red Blood Count 2.56 MIL/MM3 2.62 MIL/MM3 Hemoglobin 7.8 GM/DL 8.1 GM/DL Hematocrit 22.7 % 23.5 % Mean Corpuscular Volume 88.6 FL 89.5 FL Mean Corpuscular Hemoglobin 30.4 PG 30.8 PG Mean Corpuscular Hemoglobin 34.3 % 34.4 % Concent Red Cell Distribution Width 14.2 % 14.4 % Platelet Count 64 TH/MM3 79 TH/MM3 Mean Platelet Volume 10.1 FL 10.6 FL Neutrophils (%) (Auto) 84.4 % 93.1 % Lymphocytes (%) (Auto) 9.1 % 4.2 % Monocytes (%) (Auto) 2.1 % 2.2 % Eosinophils (%) (Auto) 3.8 % 0.3 % Basophils (%) (Auto) 0.6 % 0.2 % Neutrophils # (Auto) 8.4 TH/MM3 9.2 TH/MM3 Lymphocytes # (Auto) 0.9 TH/MM3 0.4 TH/MM3 Monocytes # (Auto) 0.2 TH/MM3 0.2 TH/MM3 Eosinophils # (Auto) 0.4 TH/MM3 0.0 TH/MM3 Basophils # (Auto) 0.1 TH/MM3 0.0 TH/MM3 CBC Comment AUTO DIFF AUTO DIFF Differential Total Cells 100 Counted Neutrophils % (Manual) 67 % Band Neutrophils % 16 % Lymphocytes % 11 % Monocytes % 1 % Eosinophils % 4 % Neutrophils # (Manual) 8.4 TH/MM3 Myelocytes 1 % Differential Comment FINAL DIFF AUTO DIFF MANUAL CONFIRMED Platelet Estimate LOW LOW Platelet Morphology Comment NORMAL NORMAL Laboratory Tests Test 07/26/16 07/27/16 07/28/16 17:23 06:00 03:49 Sodium Level 140 MEQ/L 139 MEQ/L 136 MEQ/L Potassium Level 4.3 MEQ/L 3.3 MEQ/L 3.8 MEQ/L Chloride Level 107 MEQ/L 104 MEQ/L 101 MEQ/L Carbon Dioxide Level 18.0 MEQ/L 21.4 MEQ/L 20.7 MEQ/L Anion Gap 15 MEQ/L 14 MEQ/L 14 MEQ/L Blood Urea Nitrogen 67 MG/DL 74 MG/DL 71 MG/DL Creatinine 3.07 MG/DL 3.28 MG/DL 3.05 MG/DL Estimat Glomerular Filtration 20 ML/MIN 19 ML/MIN 20 ML/MIN Rate Random Glucose 183 MG/DL 152 MG/DL 252 MG/DL Calcium Level 7.2 MG/DL 6.6 MG/DL 7.2 MG/DL Protein Corrected Calcium 7.7 MG/DL 7.0 MG/DL 7.3 MG/DL Total Protein 6.2 GM/DL 6.2 GM/DL 6.9 GM/DL Lactic Acid Level 0.6 mmol/L Phosphorus Level 4.9 MG/DL 5.7 MG/DL Magnesium Level 1.6 MG/DL 1.7 MG/DL Total Bilirubin 0.6 MG/DL 0.7 MG/DL Aspartate Amino Transf 30 U/L 31 U/L (AST/SGOT) Alanine Aminotransferase 29 U/L 32 U/L (ALT/SGPT) Alkaline Phosphatase 80 U/L 102 U/L Albumin 1.4 GM/DL 1.7 GM/DL Lactate Dehydrogenase 323 U/L Imaging Last Impressions Chest X-Ray 07/28/16 0600 Signed Impressions: Service Date/Time: Thursday, July 28, 2016 03:09 - CONCLUSION: No significant change. Hazy opacity remains in both lungs most consistent with congestive heart failure. Alonzo Bradshaw MD Abdomen X-Ray 07/24/16 0749 Signed Impressions: Service Date/Time: July 08:28 - CONCLUSION: Air-filled bowel loops centrally but no obstruction seen. Uli Atkins MD Renal Ultrasound 07/20/16 0000 Signed Impressions: Service Date/Time: Wednesday, July 20, 2016 14:32 - CONCLUSION: 1. No acute findings. Renal ultrasound unremarkable. Bladder was not well-visualized. Jose Martin Valderrama MD Lower Extremity Ultrasound 07/20/16 Signed Impressions: Service Date/Time: Wednesday, July 20, 2016 14:39 - CONCLUSION: Negative exam with no evidence of deep venous thrombosis. Alonzo Bradshaw MD Head CT 07/20/16 Signed Impressions: Service Date/Time: Wednesday, July 20, 2016 18:21 - CONCLUSION: 1. No acute intracranial abnormalities. Mild mucosal thickening of the ethmoid air cells. Jose Martin Valderrama MD Chest CT 07/20/16 Signed Impressions: Service Date/Time: Wednesday, July 20, 2016 11:28 - CONCLUSION: 1. Chronic scarring in the lung bases left greater than right. 2. No focal consolidation. 3. Bilateral adrenal masses left greater than right most consistent with adenomas. 4. Nonspecific bowel gas pattern noted in the upper abdomen with air-fluid levels in the small bowel. Alonzo Bradshaw MD Abdomen/Pelvis CT 07/20/16 0000 Signed Impressions: Service Date/Time: Wednesday, July 20, 2016 18:24 - CONCLUSION: 1. Lower abdominal ventral midline hernia containing loop of small bowel. Small bowel is mildly distended somewhat diffusely with fluid and air. Cannot exclude a low grade partial bowel obstruction in the area of herniation. 2. No abnormal fluid collections to suggest abscess. No free air or free fluid. 3. Basilar and dependent lung consolidation, left greater than right. Pneumonia could have this appearance. Small left effusion. 4. NG tip in stomach. Inferior vena cava filter present. Connelly catheter in bladder. Jose Martin Valderrama MD Physical Exam GENERAL: sedated and intubated, NAD SKIN: Cool and dry. No generalized rash, no mottling. HEAD: Atraumatic. Normocephalic. No temporal or scalp tenderness. EYES: [place] conjunctivae. Pupils equal round and reactive. Less scleral edema. No scleral icterus. No injection or drainage. ENT: Nose without bleeding, or purulent drainage. Endotracheal tube is in the mouth, has moist mucosa. NECK: Trachea midline. No JVD or lymphadenopathy. Supple, nontender, no meningeal signs. CARDIOVASCULAR: Regular rate and rhythm without murmurs, gallops, or rubs. Tachycardic RESPIRATORY: Breath sounds equal bilaterally. Has scattered rales. Decreased breath sounds at the bases. GASTROINTESTINAL: Abdomen soft, globular, bowel sounds are present and normoactive. Mildly distended, no reaction to palpation. No hepato- splenomegaly, or palpable masses. MUSCULOSKELETAL: Extremities without clubbing, cyanosis, or edema. . Feet warm. No joint effusion, or edema noted. NEUROLOGICAL: Sedated on the vent PSYCH: Unable to assess LINE: LIJ and RIJ lines with no evidence of infection : Connelly in place, urine looks clear Assessment & Plan Remarks IMPRESSION Group A Strep sepsis, with shock, MOSF, present on admission, source is not established - ?primary bacteremia Respiratory failure Renal failure, sp CVVHD Thrombocytopenia due to sepsis, no DIC Known DM, HTN, PVD, CAD Diarrhea, abx associated Critically ill, hemodynamically unstable, though improved RECOMMENDATION Follow C/S Continue IV Unasyn, clinda chk stol for C.diff D/W Shae Meyer Dr, MD July 28, 2016 11:40
--- NOTE | 2016-07-28 12:04 | HHI.NPPN ---
Subjective History of Present Illness 71-year-old male with past medical history of diabetes mellitus, hypertension, ischemic heart disease, peripheral neuropathy, chronic kidney disease, history of deep vein thrombosis, hyperlipidemia was brought to the hospital because of generalized weakness, confusion and vomiting and diarrhea. I was called to see the patient because of elevated BUN and creatinine. The patient has history of acute kidney injury in the past and chronic kidney disease. His creatinine was around 1.2 to 1.4, this was in 2012. Additional Remarks Patient is on the vent. and sedation, clinically same, CRRT clotted in AM. Review of Systems General General Remarks Intubated and sedated. Objective Data Data 07/27/16 07/28/16 19:00 07:00 Intake Total 1009 ml 2167 ml Output Total 1866 ml 4288 ml Balance -857 ml -2121 ml Intake IV Total 753 ml 1624 ml Tube Feeding 256 ml 543 ml Output Urine Total 50 ml 140 ml Hemodialysis 1816 ml 4148 ml # Bowel Movements 1 3 Vital Signs Date Time Temp Pulse Resp B/P Pulse Ox O2 Delivery O2 Flow Rate FiO2 07/28/16 11:45 97 40 07/28/16 10:00 82 07/28/16 09:47 96 40 07/28/16 08:00 45 07/28/16 08:00 70 07/28/16 08:00 97.3 70 20 98 130/50 07/28/16 06:41 97.0 07/28/16 06:00 67 127/51 110/56 07/28/16 06:00 67 07/28/16 05:30 45 07/28/16 05:00 96.4 07/28/16 04:08 100 45 07/28/16 04:00 96.8 77 20 100 153/60 07/28/16 04:00 55 07/28/16 04:00 77 07/28/16 02:00 70 07/28/16 01:10 100 55 07/28/16 00:00 97.3 86 20 153/74 100 166/69 07/28/16 00:00 86 166/64 153/74 07/28/16 00:00 86 07/28/16 00:00 55 07/27/16 22:00 88 07/27/16 20:00 87 07/27/16 20:00 97.7 87 20 137/57 97 07/27/16 20:00 55 07/27/16 19:53 96 55 07/27/16 18:00 136/53 07/27/16 18:00 81 07/27/16 16:00 82 07/27/16 16:00 97.2 82 20 138/51 99 07/27/16 16:00 55 07/27/16 15:33 99 55 07/27/16 14:00 77 07/27/16 13:45 60 07/27/16 13:30 60 -: 07/28/16 0349 07/28/16 0349 Physical Exam General Appearance Remarks Intubated and sedated. Eyes Eye Exam: Pupils Equal Throat Throat Exam: Oral Mucosa [place] & Moist Neck Neck Exam: Neck Supple Pulmonary Resp Exam: Rhonchi, Decreased Bases, Diminished Breath Sounds, Poor Inspiratory Effort Cardiology CV Exam: Regular, Normal Sinus Rhythm Gastrointestinal/Abdomen GI Exam: Soft, Non-Tender, Bowel Sounds Present Extremeties Extremities Exam: Trace Edema Neurologic Neuro Exam: Unresponsive, Sedated Assessment/Plan Assessment Summary: ADALID/Acute Renal Failure Electrolyte Assessment: Metabolic Acidosis Problem List: (1) Diabetes mellitus with neuropathy (2) Leukocytosis (3) Peripheral vascular disease (4) Severe sepsis with acute organ dysfunction (5) History of DVT (deep vein thrombosis) (6) Hypoxia (7) Acidosis (8) Lactic acidosis Plan Patient has low urine out put. BP is has improved on vasopressin pressor. BC results noted, seen by ID. Now on Unasyn and Clindamycin. CPK also elevated, but improving. BP is improving, CRRT clotted in AM. Will try conventional HD in AM. Weaning as per CCM. D/W the at bed side. 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
[2016-07-28] MEDS: fentaNYL DRIP 250 ML IV SCH (13:00)
--- NOTE | 2016-07-28 14:35 | HHI.CCPN ---
Subjective Remarks/Hospital Course 71-year-old male. Date of admission 07/20/2016. Past records includes diabetes with neuropathy and nephropathy, hypertension, dyslipidemia, chronic pain syndrome, history of DVT/PE on chronic anticoagulation, peripheral vascular disease with history of AAA, and osteoporosis. Patient recently C [place] 07/06/16. Patient sick contacts would include neighbor with "vital illness. Patient is to [facility] today with acute onset of diarrhea, hypoglycemia and chills. Upon arrival, patient was noted be acutely hypoxic and required a nonrebreather mask. Patient denies pleuritic chest pain , abdominal pain but positive for nausea and diarrhea. CT chest revealed bilateral lower lobe scarring, bilateral adrenal adenomas a nonspecific bowel gas pattern. Chest x-ray revealed no significant findings. Lab work included a lactic acid elevated 7.7, white blood cell count 12,000 in acute kidney injury with a creatinine of 3.0. Baseline around 1.5-2. Troponin was slightly elevated 0.14. EKG is currently pending. Upon arrival to [facility], patient was extremely mottled with rates in the 40s. Patient was emergently intubated please see note and a left IJ central line was placed. CT of the head, abdomen and pelvis currently pending. 07/21 Patient is sedated with Diprivan and Fentanyl and intubated. On Levophed 22 mics, Vasopressin and bicarb drip. BC from 07/20: GPC all 4 bottles. 07/22 Patient remains sedated and intubated On Levophed 22 mics, vasopressin and bicarb drip. Awaiting to start CVVHD today 07/23: Remains sedated, orally intubated on mech ventilation. On Levophed 15 mics per minute and low-dose vasopressin for pressor support. On CRRT. 07/24: Remains sedated, orally intubated on mechanical ventilation. On Levophed 7 mics per minute and low-dose vasopressin for pressor support. CRRT was stopped at 1:30 AM due to Air in system and has now been resumed. 2 Amps of bicarbonate given for metabolic acidosis while CRRT held and bicarbonate drip was started back yesterday 07/25: Remains critically ill, on CVVH. Levoped 6 mics per minute. White count has normalized, making slight amount of urine. Showing some signs of progress 07/26: Remains sedated, orally intubated on mechanical ventilation. Remains on Levophed 3 mics per minute, vasopressin 0.03 mics per minute. CRRT continues. 07/27: Remains sedated, orally intubated on mechanical ventilation. Remains on Levophed 2 mics per minute, vasopressin 0.03 mics per minute. On CRRT. 07/28: Remains sedated, orally intubated on mechanical ventilation. Off Levophed. Remains on vasopressin. CRRT clotted off this morning and is on hold currently. Nephrology to decide regarding regular hemodialysis as patient is now off Levophed. Objective Vital Signs Date Time Temp Pulse Resp B/P Pulse Ox O2 Delivery O2 Flow Rate FiO2 07/28/16 12:00 83 07/28/16 12:00 99.3 20 97 146/59 07/28/16 12:00 40 Intake and Output 07/27/16 07/27/16 07/28/16 08:00 16:00 00:00 Intake Total 1220 ml 1009 ml 1180 ml Output Total 1773 ml 1866 ml 2222 ml Balance -553 ml -857 ml -1042 ml Result Diagram: 07/28/16 0349 07/28/16 0349 Imaging Last 24 hours Impressions Chest X-Ray 07/28/16 0600 Signed Impressions: Service Date/Time: Thursday, July 28, 2016 03:09 - CONCLUSION: No significant change. Hazy opacity remains in both lungs most consistent with congestive heart failure. Alonzo Bradshaw MD Last 24 hours Impressions Chest X-Ray 07/26/16 0600 Signed Impressions: Service Date/Time: Tuesday, July 26, 2016 04:56 - CONCLUSION: No significant change. Jovan Aldridge MD Last 48 hours Impressions Abdomen X-Ray 07/24/16 0749 Signed Impressions: Service Date/Time: July 08:28 - CONCLUSION: Air-filled bowel loops centrally but no obstruction seen. Uli Atkins MD Chest X-Ray 07/24/16 0600 Signed Impressions: Service Date/Time: July 05:36 - CONCLUSION: Unchanged bibasilar infiltrates. Omer Cheng Jr., MD Last Impressions Chest X-Ray 07/21/16 0000 Signed Impressions: Service Date/Time: Thursday, July 21, 2016 22:13 - CONCLUSION: Satisfactory central line positioning. Worsening aeration. [place] Guillermo MD Renal Ultrasound 07/20/16 Signed Impressions: Service Date/Time: Wednesday, July 20, 2016 14:32 - CONCLUSION: 1. No acute findings. Renal ultrasound unremarkable. Bladder was not well-visualized. Jose Martin Valderrama MD Lower Extremity Ultrasound 07/20/16 Signed Impressions: Service Date/Time: Wednesday, July 20, 2016 14:39 - CONCLUSION: Negative exam with no evidence of deep venous thrombosis. Alonzo Bradshaw MD Head CT 07/20/16 Signed Impressions: Service Date/Time: Wednesday, July 20, 2016 18:21 - CONCLUSION: 1. No acute intracranial abnormalities. Mild mucosal thickening of the ethmoid air cells. Jose Martin Valderrama MD Chest CT 07/20/16 Signed Impressions: Service Date/Time: Wednesday, July 20, 2016 11:28 - CONCLUSION: 1. Chronic scarring in the lung bases left greater than right. 2. No focal consolidation. 3. Bilateral adrenal masses left greater than right most consistent with adenomas. 4. Nonspecific bowel gas pattern noted in the upper abdomen with air-fluid levels in the small bowel. Alonzo Bradshaw MD Abdomen/Pelvis CT 07/20/16 Signed Impressions: Service Date/Time: Wednesday, July 20, 2016 18:24 - CONCLUSION: 1. Lower abdominal ventral midline hernia containing loop of small bowel. Small bowel is mildly distended somewhat diffusely with fluid and air. Cannot exclude a low grade partial bowel obstruction in the area of herniation. 2. No abnormal fluid collections to suggest abscess. No free air or free fluid. 3. Basilar and dependent lung consolidation, left greater than right. Pneumonia could have this appearance. Small left effusion. 4. NG tip in stomach. Inferior vena cava filter present. Connelly catheter in bladder. Jose Martin Valderrama MD Objective Remarks Drips: Vasopressin/propofol/fentanyl. Levophed off CRRT: off currently Flow Trac: SVV 2 GENERAL: Patient is 71 yo critically ill intubated and sedated. SKIN: Warm and dry. HEAD: Normocephalic. EYES: Pallor present. No scleral icterus. No injection or drainage. NECK: Supple, trachea midline. No JVD or lymphadenopathy. CARDIOVASCULAR: Regular rate and rhythm without murmurs, gallops, or rubs. RESPIRATORY: Orally intubated on mechanical ventilation, Breath sounds equal bilaterally. Scattered rhonchi, no wheezing. GASTROINTESTINAL: Abdomen soft, non-tender, nondistended. Bowel sounds sluggish Neuro: Sedated, intubated. Extremities: Warm bilaterally, Bilateral edema Line: Central Venous Catheter A/P Assessment and Plan Neuro/Psych: Peripheral neuropathy Chronic pain syndrome Patient is currently on propofol/fentanyl drips for sedation/analgesia while intubated. Ativan IV when necessary for sedation. Goal RASS -2 Daily sedation vacation once hemodynamically and clinically more stable 07/20 CT brain: No acute intracranial abnormalities. CV: Elevated troponin Hypertension Dyslipidemia Lactic acidosis Peripheral vascular disease History of AAA Continue with pressors to keep MAP>65mmHg as needed. Off Levophed currently. On vasopressin 0.03 units per minute Serial lactic acid monitoring. Flotrac for hemodynamic monitoring. On Stress dose steroids- HC 50mg IV Q8 Continue with ASA daily Echo showed EF 35-40% Resp: Acute hypoxemic respiratory failure Tobaccoism Continue with vent support keep sat >92% Ventilator bundle Bronchodilator therapy every 4 hours with albuterol every 2 hours. Hold off on spontaneous breathing trials due to vasopressor use and metabolic acidosis and high PEEP. PEEP decreased to +[address] chest 07/20 revealed left greater than right basilar scarring. Bilateral adrenal adenomas. No focal consolidation GI: Continue tube feeds- Nepro with goal rate 40ml/hr Reglan 5 mg IV every 8 hours Protonix for GI prophylaxis Colace/as needed Senokot for bowel regimen CT abdomen reviewed. Gen surgery- Dr Roman- no surgical interventions. : Strict intake output, monitor and replete electrolytes, follow BUN/creatinine. Started CRRT on 07/22, being followed by nephrology Dr. Magana. CRRT on hold currently on 07/28. Nephrology to decide regarding CRRT versus hemodialysis. 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 Thrombocytopenia noted, probably secondary to sepsis. HIT screen negative. Consult hematology if platelet count not improving. ID: Continue with abx per ID (Unasyn, Clindamycin, vanco x 1 dose) monitor for signs of infections - Pertinent cultures BC 07/20- GPC, Group A Beta strep Urine cx 07/20 : neg Strep pneumonia nad Legionella urinary Ag negative Follow up on Sputum cx, BC 07/21, 07/22- NGTD MSK: Osteoarthritis Holding vitamin D 1000 units by mouth daily. Access - Left IJ CVL placed 07/20, Art line placed 07/21 -Right IJ vascath placed 07/22 Prophylaxis - GI - Protonix - DVT - SCD/heparin SQ - Doppler US LE negative for DVT Palliative care is following Patient is critically ill with resp failure, renal failure, septic shock and multiorgan injury. Prognosis guarded. Updated patient's on 07/27 regarding current clinical condition and plan of care and she voiced understanding. I have also previously explained possible need for tracheostomy and PEG tube in about 2 weeks since getting intubated if aggressive care desired at that time. 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 Time to perform other separately billable procedures was not included in the critical care time. Roman Hicks MD July 28, 2016 14:35
--- NOTE | 2016-07-28 17:33 | HHI.HCPN ---
Reason for visit a. To assist with evaluation and management of symptoms including: dyspnea; pain; encephalopathy b. To assist medical decision maker(s) with: better understanding of current medical conditions; weighing benefits/burdens of medical treatment options; making medical treatment decisions. . Subjective/Interval History INTERVAL NOTE Mr. Lemus remains sedated, minimally responsive, intubated, mechanically ventilated in the SICU. Patient remains on vasopressin but was weaned off the Levophed yesterday 07/27/2016. Per nursing, sedation vacation/SBT are currently on hold because the patient was unable to tolerate yesterday. No evidence of pain on current regimen per nurses. Temp 96.499.3 BPs 012885/; HR 7080; 02 sats 79426 percent on 40% FI02. Urine output 150 cc. Bowels are moving. WBC: 9.9, hemoglobin 8.1, hematocrit 23.5, platelets 79, neutrophils 93.1% BUN 71, creatinine 3.05, GFR 20 Calcium corrected: 7.3 Protein: 6.9; albumin 1.7 Follow-up chest x-ray on 07/28/2016 showing no significant changes, hazy opacity remains in both lungs most consistent with congestive heart failure. . Renal function continues to decline. Dialysis access was placed last night and patient is awaiting dialysis now. Pt remains on two pressor agents; systolic BPs now above 100. He has not appeared painful. Family is at bedside. Dr. Lopez was consulted to see if the hernia noted on CT scan might be playing role in this process. Dr. Lopez felt the hernia was easily reducible and therefore not an issue. Tmax 99.3. BP 100-118/ 54-60; RR 24; Pulse ox 95% on 45% FI02. Urine output 210. Bowels moving. WBC 13.4; Hg 11.0; Plt 62 BUN 59; creat 6.17; GFR 9; Ca corrected 6.3 Alb 1.7 Blood cx --> Group A Beta Strep . Advance Directives Living Will: Completed, but not made available Health Care Surrogate: Completed, but not made available Durable Power of Publisher Assistant: Never completed Advance Directive Specifics Date completed: will bring in the advance directive. Date of completion is unknown at this time. . Health Care Surrogate(s): will bring in a copy of the advance directive. She reports that she is listed as the designated health care surrogate. . Documented care wishes: will bring in a copy of the advance directive. At this point we do not have any written documentation of the patient's health care goals/preferences. . Objective Vital Signs Date Time Temp Pulse Resp B/P Pulse Ox O2 Delivery O2 Flow Rate FiO2 07/28/16 16:34 100 40 07/28/16 16:00 40 07/28/16 16:00 88 07/28/16 16:00 99.3 88 20 98 154/58 07/28/16 14:00 86 07/28/16 12:00 83 07/28/16 12:00 99.3 83 20 97 146/59 07/28/16 12:00 40 07/28/16 11:45 97 40 07/28/16 10:00 82 07/28/16 09:47 96 40 07/28/16 08:00 45 07/28/16 08:00 70 07/28/16 08:00 97.3 70 20 98 130/50 07/28/16 06:41 97.0 07/28/16 06:00 67 127/51 110/56 07/28/16 06:00 67 07/28/16 05:30 45 07/28/16 05:00 96.4 07/28/16 04:08 100 45 07/28/16 04:00 96.8 77 20 100 153/60 07/28/16 04:00 55 07/28/16 04:00 77 07/28/16 02:00 70 07/28/16 01:10 100 55 07/28/16 00:00 97.3 86 20 153/74 100 166/69 07/28/16 00:00 86 166/64 153/74 07/28/16 00:00 86 07/28/16 00:00 55 07/27/16 22:00 88 07/27/16 20:00 87 07/27/16 20:00 97.7 87 20 137/57 97 07/27/16 20:00 55 07/27/16 19:53 96 55 07/27/16 18:00 136/53 07/27/16 18:00 81 Intake & Output 07/28/16 07/28/16 07:00 19:00 Intake Total 2167 ml 1023 ml Output Total 4288 ml 766 ml Balance -2121 ml 257 ml Intake IV Total 1624 ml 708 ml Tube Feeding 543 ml 315 ml Output Urine Total 140 ml 125 ml Hemodialysis 4148 ml 641 ml # Bowel Movements 3 . Physical Exam CONSTITUTIONAL/GENERAL: This is an overweight male intubated/mechanically ventilated/sedated in a surgical intensive care unit bed. He does not awaken to voice or examination. No obvious distress. TUBES/LINES/DRAINS: Orotracheal tube; orogastric tube; left internal jugular central line; vas-cath right internal jugular; peripheral IV; SCDs; Connelly catheter; warming blanket SKIN: No jaundice, rashes, or lesions. No wounds seen anteriorly. Skin temperature warm but not diaphoretic. EYES: Pupils equal and round. Unable to assess extraocular motions. No scleral icterus. No injection or drainage. Fundi not examined. ENT: Unable to assess hearing. Nose without bleeding or purulent drainage. NECK: Trachea midline. CARDIOVASCULAR: Tachycardic; Regular rhythm without murmurs, gallops, or rubs. No JVD. RESPIRATORY/CHEST: Symmetric, unlabored respirations. Clear to auscultation. Breath sounds equal bilaterally but air movement diminished at bases. No wheezes , rales, or rhonchi. GASTROINTESTINAL: Abdomen soft, non-tender, slightly distended. No hepato- splenomegaly, or palpable masses. GENITOURINARY: Without palpable bladder distension. Connelly catheter in place. MUSCULOSKELETAL: Extremities without clubbing, cyanosis, or edema. No mottling. NEUROLOGICAL: Sedateddoes not stir to voice or examination. No spontaneous movements. Withdraws to noxious stimulus. PSYCHIATRIC: Unable to assess due to sedation.. . Diagnostic Tests Laboratory Laboratory Tests Test 07/26/16 07/26/16 07/27/16 07/27/16 06:10 17:23 04:49 06:00 White Blood Count 9.6 TH/MM3 10.0 TH/MM3 (4.0-11.0) (4.0-11.0) Red Blood Count 2.70 MIL/MM3 2.56 MIL/MM3 (4.50-5.90) (4.50-5.90) Hemoglobin 8.3 GM/DL 7.8 GM/DL (13.0-17.0) (13.0-17.0) Hematocrit 23.8 % 22.7 % (39.0-51.0) (39.0-51.0) Mean Corpuscular Volume 88.2 FL 88.6 FL (80.0-100.0) (80.0-100.0) Mean Corpuscular Hemoglobin 30.9 PG 30.4 PG (27.0-34.0) (27.0-34.0) Mean Corpuscular Hemoglobin 35.0 % 34.3 % Concent (32.0-36.0) (32.0-36.0) Red Cell Distribution Width 14.1 % 14.2 % (11.6-17.2) (11.6-17.2) Platelet Count 56 TH/MM3 64 TH/MM3 (150-450) (150-450) Mean Platelet Volume 9.5 FL 10.1 FL (7.0-11.0) (7.0-11.0) Neutrophils (%) (Auto) 84.3 % 84.4 % (16.0-70.0) (16.0-70.0) Lymphocytes (%) (Auto) 10.0 % 9.1 % (9.0-44.0) (9.0-44.0) Monocytes (%) (Auto) 3.0 % (0.0-8.0) 2.1 % (0.0-8.0) Eosinophils (%) (Auto) 2.4 % (0.0-4.0) 3.8 % (0.0-4.0) Basophils (%) (Auto) 0.3 % (0.0-2.0) 0.6 % (0.0-2.0) Neutrophils # (Auto) 8.1 TH/MM3 8.4 TH/MM3 (1.8-7.7) (1.8-7.7) Lymphocytes # (Auto) 1.0 TH/MM3 0.9 TH/MM3 (1.0-4.8) (1.0-4.8) Monocytes # (Auto) 0.3 TH/MM3 0.2 TH/MM3 (0-0.9) (0-0.9) Eosinophils # (Auto) 0.2 TH/MM3 0.4 TH/MM3 (0-0.4) (0-0.4) Basophils # (Auto) 0.0 TH/MM3 0.1 TH/MM3 (0-0.2) (0-0.2) CBC Comment AUTO DIFF AUTO DIFF Differential Total Cells 100 100 Counted Neutrophils % (Manual) 74 % (16-70) 67 % (16-70) Band Neutrophils % 9 % (0-6) 16 % (0-6) Lymphocytes % 11 % (9-44) 11 % (9-44) Eosinophils % 3 % (0-4) 4 % (0-4) Neutrophils # (Manual) 8.3 TH/MM3 8.4 TH/MM3 (1.8-7.7) (1.8-7.7) Metamyelocytes 1 % (0-1) Myelocytes 2 % (0-0) 1 % (0-0) Differential Comment FINAL DIFF FINAL DIFF MANUAL MANUAL Platelet Estimate LOW (NORMAL) LOW (NORMAL) Platelet Morphology Comment NORMAL NORMAL (NORMAL) (NORMAL) Activated Partial 39.4 SEC 31.5 SEC Thromboplast Time (24.3-30.1) (24.3-30.1) Sodium Level 143 MEQ/L 140 MEQ/L 139 MEQ/L (136-145) (136-145) (136-145) Potassium Level 3.1 MEQ/L 4.3 MEQ/L 3.3 MEQ/L (3.5-5.1) (3.5-5.1) (3.5-5.1) Chloride Level 109 MEQ/L 107 MEQ/L 104 MEQ/L (98-107) (98-107) (98-107) Carbon Dioxide Level 22.1 MEQ/L 18.0 MEQ/L 21.4 MEQ/L (21.0-32.0) (21.0-32.0) (21.0-32.0) Anion Gap 12 MEQ/L (5-15) 15 MEQ/L (5-15) 14 MEQ/L (5-15) Blood Urea Nitrogen 63 MG/DL (7-18) 67 MG/DL (7-18) 74 MG/DL (7-18) Creatinine 3.22 MG/DL 3.07 MG/DL 3.28 MG/DL (0.60-1.30) (0.60-1.30) (0.60-1.30) Estimat Glomerular Filtration 19 ML/MIN (>89) 20 ML/MIN (>89) 19 ML/MIN (>89) Rate Random Glucose 115 MG/DL 183 MG/DL 152 MG/DL (74-106) (74-106) (74-106) Lactic Acid Level 0.7 mmol/L 0.6 mmol/L (0.4-2.0) (0.4-2.0) Calcium Level 7.2 MG/DL 7.2 MG/DL 6.6 MG/DL (8.5-10.1) (8.5-10.1) (8.5-10.1) Protein Corrected Calcium 7.8 MG/DL 7.7 MG/DL 7.0 MG/DL (8.5-10.1) (8.5-10.1) (8.5-10.1) Magnesium Level 1.6 MG/DL 1.6 MG/DL (1.5-2.5) (1.5-2.5) Total Bilirubin 0.6 MG/DL 0.6 MG/DL (0.2-1.0) (0.2-1.0) Aspartate Amino Transf 24 U/L (15-37) 30 U/L (15-37) (AST/SGOT) Alanine Aminotransferase 29 U/L (12-78) 29 U/L (12-78) (ALT/SGPT) Alkaline Phosphatase 67 U/L (45-117) 80 U/L (45-117) Total Protein 5.9 GM/DL 6.2 GM/DL 6.2 GM/DL (6.4-8.2) (6.4-8.2) (6.4-8.2) Albumin 1.5 GM/DL 1.4 GM/DL (3.4-5.0) (3.4-5.0) Blood Gas Puncture Site RENAE Blood Gas Patient Temperature 98.6 Blood Gas HCO3 19 mmol/L (22-26) Blood Gas Base Excess -5.8 mmol/L (-2-2) Blood Gas Oxygen Saturation 95 % (90-100) Arterial Blood pH 7.37 (7.380-7.420) Arterial Blood Partial 33 mmHg (38-42) Pressure CO2 Arterial Blood Partial 119 mmHg Pressure O2 (61-120) Arterial Blood Oxygen Content 10.8 Vol % (12.0-20.0) Arterial Blood 0.2 % (0-4) Carboxyhemoglobin Arterial Blood Methemoglobin 1.1 % (0-2) Blood Gas Hemoglobin 7.9 G/DL (12.0-16.0) Oxygen Delivery Device VENTILATOR Blood Gas Ventilator Setting AC20/550/+10 Blood Gas Inspired Oxygen 45 % Monocytes % 1 % (0-8) Prothrombin Time 12.3 SEC (9.8-11.6) Prothromb Time International 1.1 RATIO Ratio Fibrinogen 604 mg/dL (227-377) Phosphorus Level 4.9 MG/DL (2.5-4.9) Test 07/28/16 07/28/16 03:49 07:59 White Blood Count 9.9 TH/MM3 (4.0-11.0) Red Blood Count 2.62 MIL/MM3 (4.50-5.90) Hemoglobin 8.1 GM/DL (13.0-17.0) Hematocrit 23.5 % (39.0-51.0) Mean Corpuscular Volume 89.5 FL (80.0-100.0) Mean Corpuscular Hemoglobin 30.8 PG (27.0-34.0) Mean Corpuscular Hemoglobin 34.4 % Concent (32.0-36.0) Red Cell Distribution Width 14.4 % (11.6-17.2) Platelet Count 79 TH/MM3 (150-450) Mean Platelet Volume 10.6 FL (7.0-11.0) Neutrophils (%) (Auto) 93.1 % (16.0-70.0) Lymphocytes (%) (Auto) 4.2 % (9.0-44.0) Monocytes (%) (Auto) 2.2 % (0.0-8.0) Eosinophils (%) (Auto) 0.3 % (0.0-4.0) Basophils (%) (Auto) 0.2 % (0.0-2.0) Neutrophils # (Auto) 9.2 TH/MM3 (1.8-7.7) Lymphocytes # (Auto) 0.4 TH/MM3 (1.0-4.8) Monocytes # (Auto) 0.2 TH/MM3 (0-0.9) Eosinophils # (Auto) 0.0 TH/MM3 (0-0.4) Basophils # (Auto) 0.0 TH/MM3 (0-0.2) CBC Comment AUTO DIFF Differential Comment AUTO DIFF CONFIRMED Platelet Estimate LOW (NORMAL) Platelet Morphology Comment NORMAL (NORMAL) Sodium Level 136 MEQ/L (136-145) Potassium Level 3.8 MEQ/L (3.5-5.1) Chloride Level 101 MEQ/L (98-107) Carbon Dioxide Level 20.7 MEQ/L (21.0-32.0) Anion Gap 14 MEQ/L (5-15) Blood Urea Nitrogen 71 MG/DL (7-18) Creatinine 3.05 MG/DL (0.60-1.30) Estimat Glomerular Filtration 20 ML/MIN (>89) Rate Random Glucose 252 MG/DL (74-106) Calcium Level 7.2 MG/DL (8.5-10.1) Protein Corrected Calcium 7.3 MG/DL (8.5-10.1) Phosphorus Level 5.7 MG/DL (2.5-4.9) Magnesium Level 1.7 MG/DL (1.5-2.5) Total Bilirubin 0.7 MG/DL (0.2-1.0) Aspartate Amino Transf 31 U/L (15-37) (AST/SGOT) Alanine Aminotransferase 32 U/L (12-78) (ALT/SGPT) Alkaline Phosphatase 102 U/L (45-117) Lactate Dehydrogenase 323 U/L (87-241) Total Protein 6.9 GM/DL (6.4-8.2) Albumin 1.7 GM/DL (3.4-5.0) Activated Partial 29.1 SEC Thromboplast Time (24.3-30.1) Result Diagram: 07/28/16 0349 07/28/16 0349 Procedures * Intubation/mechanical ventilation 07/20/16 * Left internal jugular central line placement 07/20/16 * Right jugular vas-cath placement * CRRT . Assessment and Plan Disease Oriented Problem List: (1) Severe sepsis with acute organ dysfunction Comment: Blood cx growing out Group A strep . (2) Respiratory failure (3) Lactic acidosis Comment: Improved -- but metabolic acidosis persists with elevated anion gap. . (4) Hypoxia (5) Peripheral vascular disease (6) Hypertension (7) Dyslipidemia (8) Chronic anticoagulation (9) Elevated troponin (10) History of DVT (deep vein thrombosis) (11) Acute kidney injury Comment: Now on CRRT. (12) Thrombocytopenia (13) Metabolic acidosis Comment: This has remained profound and persistent in spite of normalization of lactic acid. . Symptom Scale: (1) Pain 0-10 Scale: Unable to quantify Comment: Patient has chronic pain mostly in the lower extremities from a combination of peripheral vascular disease and diabetic neuropathy. He had been prescribed opiates in the past but normally takes no analgesics because he doesn't like the side effects. Additional sources of discomfort at this time would include prolonged bedbound status; orotracheal/orogastric intubations; Connelly catheter; vascular access lines. . (2) Dyspnea 0-10 Scale: Unable to quantify (dyspnea seems managed with mechanical ventilation.) Comment: Controlled with mechanical ventilation . (3) Encephalopathy 0-10 Scale: Unable to quantify Comment: Encephalopathy is most likely multifactorial and in large part due to the septic shock. Based on the history, it is unlikely that the duration of hypoglycemia or hypotension would've caused any type of permanent damage. There is no prior history of underlying dementia. . Pertinent Non-Medical Issues Psychosocial: Patient is well supported by his spouse and daughter who live locally, many friends who live locally, and 2 daughters [place]. Spiritual: Patient was raised in a Nondenominational home. 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 Catholic and spirituality have not played a large part in his life of late. Legal: reports the patient has completed an advanced directive. She will bring a copy into scanned into the medical record. Ethical issues impacting care: Patient is currently incapacitated to make his own health care decisions. It remains uncertain if he will regain capacity to do so. . Important Contacts == Spouse (Alysia Lemus) [phone] == Daughter (Adenike) [phone] . Prognosis Though Mr Lemus is quite critically ill with septic shock and multiple organs being affected, it is also important to note that in spite of his underlying chronic illnesses , his functional status was reasonably good prior to becoming acutely ill so suddenly. Family, understandably, want to give him a chance to see if he is able to get through this acute period. He had a similar episode of severe illness approximately 10 years ago after being hospitalized with a ruptured appendix. Family has witnessed him being able to recover from that. The rapidity of progression to overwhelming sepsis is a poor prognostic sign. In addition, he will need ample fluids to fight shock and hypotension which can easily lead to congestive failure given his history. It is doubtful family will want to go forward with trach/PEG unless there were good reason to believe he would recover. . . Code Status: Full Code Plan == Code Status : FULL CODE == Decision Making: The patient is currently incapacitated to make his own health care decisions. will bring in the patient's completed advanced directive. She informs me that she is listed as the designated health care surrogate. If there is no advanced directive, would still be asked to serve as proxy decision-maker under the hierarchy of proxy's in the [place] statutes. == Goals of medical treatment: The patient's spouse and 3 of the daughters present want ongoing and full aggressive care for the time being. They are aware how ill the patient is and want to see if he is able to turn the corner. As noted above they would want all resuscitation attempts tried at this point in time. On the other hand, family reports that the patient would not want to be maintained on life support if there is no hope for meaningful recovery. is even uncertain if patient would ever agree to ongoing hemodialysis. If the patient continues to decline in spite of aggressive care were there is no obvious improvement in spite of aggressive care want to reconsider goals. == Pain: As noted above, patient has a number of different pain syndromes. Currently pain is being controlled with a fentanyl drip. This appears to be working. No further recommendations for pain control at this time. ==Dyspnea: Dyspnea currently being controlled with mechanical ventilation. No further recommendations at this time. == Agitation: Agitation is probably secondary to a multifactorial delirium. Symptoms are currently being controlled with propofol. Hopefully as the patient 's underlying infection is being treated, propofol can be weaned and agitation will be less. No further recommendations at this time. == Encephalopathy: Also likely due to a multifactorial delirium. No evidence at this time to suggest there is been any kind of long lasting adverse effects from either hypoglycemia or hypotension or hypoxia.. No further recommendations at this time. == is bringing in a copy of the patient's advanced directive for us to scan into the electronic medical record. Has not arrived yet. Have asked nursing staff to request this as well. == Palliative care will continue to follow to assist with symptom management and to further clarify goals of medical treatment as the clinical course evolves. . Kandy Contreras OIL ANALYST July 28, 2016 17:33
[2016-07-29] VITALS (18 sets, daily range): BP systolic 97–159; BP diastolic 37–67; PULSE 81–105; RESP 20–26; TEMP 98–99.9; O2SAT 95–98
[2016-07-29] MEDS: CALCIUM GLUCONATE INJ 2 GM in SODIUM CHLORIDE 0.9% INJ 100 ML IV SCH (00:03)
[2016-07-29] MEDS: CLINDAMYCIN INJ 900 MG in SODIUM CHLORIDE 0.9% INJ 100 ML IV SCH ×3 (00:03→10:00)
[2016-07-29] MEDS: METOCLOPRAMIDE HCL 10 MG/2 ML VIAL IV PUSH SCH ×3 (00:04→17:24)
[2016-07-29] MEDS: INSULIN NovoLIN REGULAR SUPPLEMENTAL SCALE SQ SCH ×2 (00:32→06:38)
[2016-07-29] MEDS: AMPICILLIN-SULBACTAM INJ 1,500 MG in SODIUM CHLORIDE 0.9% INJ 100 ML IV SCH ×3 (02:21→17:24)
[2016-07-29] MEDS: CHLORHEXIDINE GLUCONATE 2 % 1 PACK (2 CLOTHS) TOP SCH (04:00)
[2016-07-29] MEDS: HYDROCORTISONE SOD SUCCINATE 100 MG VIAL IV PUSH SCH (05:14)
[2016-07-29] MEDS: PROPOFOL 1000 MG/100 ML INJ 100 ML IV SCH ×4 (05:14→23:48)
[2016-07-29] MEDS: PANTOPRAZOLE SODIUM 40 MG VIAL IV SCH (07:54)
[2016-07-29] MEDS: SENNOSIDES SYRUP 8.8 MG/5 ML CUP OG-TUBE SCH (07:54)
[2016-07-29] MEDS: ASPIRIN 81 MG CHEW TAB CHEW SCH (07:56)
[2016-07-29 08:00] LABS: BICARBONATE 18.7 MEQ/L (21.0-32.0); POTASSIUM 3.3 MEQ/L (3.5-5.1)
[2016-07-29] MEDS: CHLORHEXIDINE 0.12% (ORAL KIT) 15 ML CUP MT SCH ×2 (08:00→20:00)
[2016-07-29 08:13] LABS: CALCIUM-PROTEIN CORRECTED 7.7 MG/DL (8.5-10.1); TOTAL BILIRUBIN ADULT 0.5 MG/DL (0.2-1.0)
[2016-07-29] MEDS ORDERED: GLUCAGON 1 MG/ML VIAL IM/SQ PRN (08:45)
[2016-07-29] MEDS ORDERED: DEXTROSE 50% IN WATER 50 ML VIAL(D50) IV PRN (08:45)
--- NOTE | 2016-07-29 08:50 | HHI.CCPN ---
Subjective Remarks/Hospital Course 71-year-old male. Date of admission 07/20/2016. Past records includes diabetes with neuropathy and nephropathy, hypertension, dyslipidemia, chronic pain syndrome, history of DVT/PE on chronic anticoagulation, peripheral vascular disease with history of AAA, and osteoporosis. Patient recently C [place] 07/06/16. Patient sick contacts would include neighbor with "vital illness. Patient is to [facility] today with acute onset of diarrhea, hypoglycemia and chills. Upon arrival, patient was noted be acutely hypoxic and required a nonrebreather mask. Patient denies pleuritic chest pain , abdominal pain but positive for nausea and diarrhea. CT chest revealed bilateral lower lobe scarring, bilateral adrenal adenomas a nonspecific bowel gas pattern. Chest x-ray revealed no significant findings. Lab work included a lactic acid elevated 7.7, white blood cell count 12,000 in acute kidney injury with a creatinine of 3.0. Baseline around 1.5-2. Troponin was slightly elevated 0.14. EKG is currently pending. Upon arrival to [facility], patient was extremely mottled with rates in the 40s. Patient was emergently intubated please see note and a left IJ central line was placed. CT of the head, abdomen and pelvis currently pending. 07/21 Patient is sedated with Diprivan and Fentanyl and intubated. On Levophed 22 mics, Vasopressin and bicarb drip. BC from 07/20: GPC all 4 bottles. 07/22 Patient remains sedated and intubated On Levophed 22 mics, vasopressin and bicarb drip. Awaiting to start CVVHD today 07/23: Remains sedated, orally intubated on mech ventilation. On Levophed 15 mics per minute and low-dose vasopressin for pressor support. On CRRT. 07/24: Remains sedated, orally intubated on mechanical ventilation. On Levophed 7 mics per minute and low-dose vasopressin for pressor support. CRRT was stopped at 1:30 AM due to Air in system and has now been resumed. 2 Amps of bicarbonate given for metabolic acidosis while CRRT held and bicarbonate drip was started back yesterday 07/25: Remains critically ill, on CVVH. Levoped 6 mics per minute. White count has normalized, making slight amount of urine. Showing some signs of progress 07/26: Remains sedated, orally intubated on mechanical ventilation. Remains on Levophed 3 mics per minute, vasopressin 0.03 mics per minute. CRRT continues. 07/27: Remains sedated, orally intubated on mechanical ventilation. Remains on Levophed 2 mics per minute, vasopressin 0.03 mics per minute. On CRRT. 07/28: Remains sedated, orally intubated on mechanical ventilation. Off Levophed. Remains on vasopressin. CRRT clotted off this morning and is on hold currently. Nephrology to decide regarding regular hemodialysis as patient is now off Levophed. 07/29: Sedated, arousable, orally intubated on mechanical ventilation. Off Levophed and vasopressin drips. To be initiated on hemodialysis today. Tolerating tube feeds. Objective Vital Signs Date Time Temp Pulse Resp B/P Pulse Ox O2 Delivery O2 Flow Rate FiO2 07/29/16 08:02 97 40 07/29/16 08:00 98.8 86 20 143/48 Intake and Output 07/28/16 07/28/16 07/29/16 08:00 16:00 00:00 Intake Total 987 ml 1023 ml 647 ml Output Total 2066 ml 766 ml 100 ml Balance -1079 ml 257 ml 547 ml Result Diagram: 07/28/16 0349 07/29/16 0445 Other Results Laboratory Tests Test 07/29/16 04:45 Sodium Level 136 MEQ/L Potassium Level 3.3 MEQ/L Chloride Level 102 MEQ/L Carbon Dioxide Level 18.7 MEQ/L Anion Gap 15 MEQ/L Blood Urea Nitrogen 91 MG/DL Creatinine 4.13 MG/DL Estimat Glomerular Filtration 14 ML/MIN Rate Random Glucose 336 MG/DL Calcium Level 7.4 MG/DL Protein Corrected Calcium 7.7 MG/DL Phosphorus Level 5.3 MG/DL Magnesium Level 2.0 MG/DL Total Bilirubin 0.5 MG/DL Aspartate Amino Transf 21 U/L (AST/SGOT) Alanine Aminotransferase 30 U/L (ALT/SGPT) Alkaline Phosphatase 110 U/L Total Protein 6.6 GM/DL Albumin 1.6 GM/DL Imaging Last 24 hours Impressions Chest X-Ray 07/28/16 0600 Signed Impressions: Service Date/Time: Thursday, July 28, 2016 03:09 - CONCLUSION: No significant change. Hazy opacity remains in both lungs most consistent with congestive heart failure. Alonzo Bradshaw MD Last 24 hours Impressions Chest X-Ray 07/26/16 0600 Signed Impressions: Service Date/Time: Tuesday, July 26, 2016 04:56 - CONCLUSION: No significant change. Jovan Aldridge MD Last 48 hours Impressions Abdomen X-Ray 07/24/16 0749 Signed Impressions: Service Date/Time: July 08:28 - CONCLUSION: Air-filled bowel loops centrally but no obstruction seen. Uli Atkins MD Chest X-Ray 07/24/16 0600 Signed Impressions: Service Date/Time: July 05:36 - CONCLUSION: Unchanged bibasilar infiltrates. Omer Cheng Jr., MD Last Impressions Chest X-Ray 07/21/16 0000 Signed Impressions: Service Date/Time: Thursday, July 21, 2016 22:13 - CONCLUSION: Satisfactory central line positioning. Worsening aeration. [place] Guillermo MD Renal Ultrasound 07/20/16 Signed Impressions: Service Date/Time: Wednesday, July 20, 2016 14:32 - CONCLUSION: 1. No acute findings. Renal ultrasound unremarkable. Bladder was not well-visualized. Jose Martin Valderrama MD Lower Extremity Ultrasound 07/20/16 Signed Impressions: Service Date/Time: Wednesday, July 20, 2016 14:39 - CONCLUSION: Negative exam with no evidence of deep venous thrombosis. Alonzo Bradshaw MD Head CT 07/20/16 Signed Impressions: Service Date/Time: Wednesday, July 20, 2016 18:21 - CONCLUSION: 1. No acute intracranial abnormalities. Mild mucosal thickening of the ethmoid air cells. Jose Martin Valderrama MD Chest CT 07/20/16 0000 Signed Impressions: Service Date/Time: Wednesday, July 20, 2016 11:28 - CONCLUSION: 1. Chronic scarring in the lung bases left greater than right. 2. No focal consolidation. 3. Bilateral adrenal masses left greater than right most consistent with adenomas. 4. Nonspecific bowel gas pattern noted in the upper abdomen with air-fluid levels in the small bowel. Alonzo Bradshaw MD Abdomen/Pelvis CT 07/20/16 Signed Impressions: Service Date/Time: Wednesday, July 20, 2016 18:24 - CONCLUSION: 1. Lower abdominal ventral midline hernia containing loop of small bowel. Small bowel is mildly distended somewhat diffusely with fluid and air. Cannot exclude a low grade partial bowel obstruction in the area of herniation. 2. No abnormal fluid collections to suggest abscess. No free air or free fluid. 3. Basilar and dependent lung consolidation, left greater than right. Pneumonia could have this appearance. Small left effusion. 4. NG tip in stomach. Inferior vena cava filter present. Connelly catheter in bladder. Jose Martin Valderrama MD Objective Remarks Drips: Vasopressin/propofol/fentanyl. Levophed off CRRT: off currently Flow Trac: SVV 2 GENERAL: Patient is 71 yo critically ill intubated and sedated. SKIN: Warm and dry. HEAD: Normocephalic. EYES: Pallor present. No scleral icterus. No injection or drainage. NECK: Supple, trachea midline. No JVD or lymphadenopathy. CARDIOVASCULAR: Regular rate and rhythm without murmurs, gallops, or rubs. RESPIRATORY: Orally intubated on mechanical ventilation, Breath sounds equal bilaterally. Scattered rhonchi, no wheezing. GASTROINTESTINAL: Abdomen soft, non-tender, nondistended. Bowel sounds sluggish Neuro: Sedated, intubated. Extremities: Warm bilaterally, Bilateral edema Line: Central Venous Catheter A/P Assessment and Plan Neuro/Psych: Peripheral neuropathy Chronic pain syndrome Patient is currently on propofol/fentanyl drips for sedation/analgesia while intubated. Ativan IV when necessary for sedation. Goal RASS -2 Daily sedation vacation 07/20 CT brain: No acute intracranial abnormalities. CV: Elevated troponin Hypertension Dyslipidemia Lactic acidosis Septic shock Peripheral vascular disease History of AAA Continue with pressors to keep MAP>65mmHg as needed. Off Levophed/ vasopressin currently. Flotrac for hemodynamic monitoring. On Stress dose steroids- HC 50mg IV Q8 : decreased to 50mg daily on 07/29 Continue with ASA daily Echo showed EF 35-40% Resp: Acute hypoxemic respiratory failure Tobaccoism Continue with vent support keep sat >92% Ventilator bundle Bronchodilator therapy every 4 hours with albuterol every 2 hours. PEEP decreased from +8 to +6 (07/29). We'll initiate daily C Pap trials CT chest 07/20 revealed left greater than right basilar scarring. Bilateral adrenal adenomas. No focal consolidation GI: Continue tube feeds- Nepro with goal rate 40ml/hr Reglan 5 mg IV every 8 hours Protonix for GI prophylaxis Colace/as needed Senokot for bowel regimen CT abdomen reviewed. Gen surgery- Dr Roman- no surgical interventions. : Strict intake output, monitor and replete electrolytes, follow BUN/creatinine. Started CRRT on 07/22, being followed by nephrology Dr. Magana. CRRT on hold currently on 07/28. Switching to hemodialysis on 07/29. Renal US: No acute findings Endo: Diabetes mellitus with nephropathy and neuropathy Bilateral adrenal adenoma Hyperglycemia Added Levemir 20 units subcutaneously every 12 hourly and switch from medium to high dose sliding scale insulin on 07/29 for better glycemic control. Taper steroids. 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 HIT screen negative. Start heparin 5000 units subcutaneously every 12 hourly on 07/29 ID: Continue with abx per ID (Unasyn, Clindamycin, vanco x 1 dose) monitor for signs of infections - Pertinent cultures BC 07/20- GPC, Group A Beta strep Urine cx 07/20 : neg Strep pneumonia nad Legionella urinary Ag negative Follow up on Sputum cx, BC 07/21, 07/22- NGTD MSK: Osteoarthritis Holding vitamin D 1000 units by mouth daily. Access - Left IJ CVL placed 07/20, Art line placed 07/21 -Right IJ vascath placed 07/22 Prophylaxis - GI - Protonix - DVT - SCD/heparin SQ - Doppler US LE negative for DVT Palliative care is following Patient is critically ill with resp failure, renal failure, septic shock and multiorgan injury. Prognosis guarded. Updated patient's on 07/29 regarding current clinical condition and plan of care and she voiced understanding. I have also previously explained possible need for tracheostomy and PEG tube in about 2 weeks since getting intubated if patient is not extubatable at thart time. D/W TONGSMANsurvey research associate: The total critical care time was 40 minutes. Time to perform other separately billable procedures was not included in the critical care time. Roman Hicks MD July 29, 2016 08:50
[2016-07-29] MEDS: DOCUSATE SODIUM 100 MG CAP PO SCH ×2 (09:00→21:00)
[2016-07-29] MEDS: SODIUM CHLORIDE 0.9% FLUSH 10 ML FLUSH IVF SCH (09:00)
[2016-07-29] MEDS: SODIUM CHLORIDE 0.9% FLUSH 10 ML FLUSH IV FLUSH SCH ×2 (09:00→21:00)
[2016-07-29] MEDS: INSULIN DETEMIR 100 UNITS/ML VIAL SQ SCH ×2 (09:00→21:56)
[2016-07-29] MEDS: HEPARIN SODIUM - SQ 10,000 UNITS/ML VIAL SQ SCH ×2 (10:00→21:48)
[2016-07-29] MEDS: INSULIN ASPART SUPPLEMENTAL SCALE SQ SCH ×2 (11:14→17:24)
[2016-07-29] MEDS: HEPARIN SODIUM - IV 10,000 UNITS/10 ML VIAL OTHER PRN (11:27)
[2016-07-29] MEDS: GENTAMICIN SULFATE (DIALYSIS USE ONLY) 20 MG/2 ML VIAL OTHER PRN (11:27)
--- NOTE | 2016-07-29 13:25 | HHI.IDPN ---
Subjective Subjective Remarks 71-year-old male admitted to the hospital for acute onset of diarrhea, chills and hypoglycemia. Patient apparently working in the yard July 18 and July 19. He was doing okay except for complaints on his lower extremity which is apparently chronic and related to his peripheral vascular disease. That night, the noted that the patient was breathing hard. She asked the patient and he stated that he is not short of breath. He has not complained of any sore throat, has not been congested, and has eaten without any problem. He has not had any urinary complaints. That night apparently the couldn't sleep, and around 4 :00 in the morning the patient woke up and stated that he wanted to go to the bathroom. Patient didn't make it, and had stool incontinence. He was noted to have some chills, and his blood sugars were low. He also had episode of vomiting. Patient was taken to the hospital, and since admission he is developed profound hypotension, and acidosis. He ended up getting intubated, and currently on Levophed and vasopressin. His white count is elevated, lactic acid elevated, and his creatinine is also quite elevated. His urine output has been low. Cultures done in the emergency room, are now reported as growing group A strep. Notes reviewed Temps occ 99+ Off pressors On the vent Nothing new on C/S + diarrhea tolerating tube feeds + elizondo secretions To get HD Antibiotics Unasyn clindamycin Lines LIJ TLC RIJ vascath Past Medical History Hypertension Diabetes mellitus Ischemic heart disease Hyperlipidemia History of deep venous thrombosis Peripheral vascular disease Chronic kidney disease Arthritis Past Surgical History Bowel surgery Appendectomy Allergies: Coded Allergies: No Known Allergies (Verified , 07/20/16) Objective . Vital Signs Date Time Temp Pulse Resp B/P Pulse Ox O2 Delivery O2 Flow Rate FiO2 07/29/16 12:00 98.4 94 20 97 159/50 07/29/16 12:00 40 07/29/16 12:00 94 07/29/16 11:55 97 40 07/29/16 10:00 89 07/29/16 08:02 97 40 07/29/16 08:00 40 07/29/16 08:00 98.8 86 20 97 143/48 07/29/16 08:00 81 07/29/16 06:00 97/37 107/52 07/29/16 04:11 98 40 5/16/17 04:00 40 07/29/16 04:00 98.0 84 20 97 147/67 07/29/16 01:04 97 40 07/29/16 00:10 07/29/16 00:10 40 07/28/16 20:09 96 40 07/28/16 20:01 93 07/28/16 20:00 98.9 98 20 96 147/67 07/28/16 20:00 40 07/28/16 18:00 81 07/28/16 18:00 130/74 118/56 07/28/16 16:34 100 40 07/28/16 16:00 40 07/28/16 16:00 88 07/28/16 16:00 99.3 88 20 98 154/58 07/28/16 14:00 86 07/28/16 07/28/16 07/29/16 15:00 23:00 07:00 Intake Total 1023 ml 647 ml 433 ml Output Total 766 ml 100 ml 100 ml Balance 257 ml 547 ml 333 ml Intake IV Total 708 ml 352 ml 203 ml Tube Feeding 315 ml 295 ml 230 ml Output Urine Total 125 ml 100 ml 100 ml Hemodialysis 641 ml 0 ml 0 ml . Laboratory Tests Test 07/28/16 03:49 White Blood Count 9.9 TH/MM3 Red Blood Count 2.62 MIL/MM3 Hemoglobin 8.1 GM/DL Hematocrit 23.5 % Mean Corpuscular Volume 89.5 FL Mean Corpuscular Hemoglobin 30.8 PG Mean Corpuscular Hemoglobin 34.4 % Concent Red Cell Distribution Width 14.4 % Platelet Count 79 TH/MM3 Mean Platelet Volume 10.6 FL Neutrophils (%) (Auto) 93.1 % Lymphocytes (%) (Auto) 4.2 % Monocytes (%) (Auto) 2.2 % Eosinophils (%) (Auto) 0.3 % Basophils (%) (Auto) 0.2 % Neutrophils # (Auto) 9.2 TH/MM3 Lymphocytes # (Auto) 0.4 TH/MM3 Monocytes # (Auto) 0.2 TH/MM3 Eosinophils # (Auto) 0.0 TH/MM3 Basophils # (Auto) 0.0 TH/MM3 CBC Comment AUTO DIFF Differential Comment AUTO DIFF CONFIRMED Platelet Estimate LOW Platelet Morphology Comment NORMAL Laboratory Tests Test 07/28/16 07/29/16 03:49 04:45 Sodium Level 136 MEQ/L 136 MEQ/L Potassium Level 3.8 MEQ/L 3.3 MEQ/L Chloride Level 101 MEQ/L 102 MEQ/L Carbon Dioxide Level 20.7 MEQ/L 18.7 MEQ/L Anion Gap 14 MEQ/L 15 MEQ/L Blood Urea Nitrogen 71 MG/DL 91 MG/DL Creatinine 3.05 MG/DL 4.13 MG/DL Estimat Glomerular Filtration 20 ML/MIN 14 ML/MIN Rate Random Glucose 252 MG/DL 336 MG/DL Calcium Level 7.2 MG/DL 7.4 MG/DL Protein Corrected Calcium 7.3 MG/DL 7.7 MG/DL Phosphorus Level 5.7 MG/DL 5.3 MG/DL Magnesium Level 1.7 MG/DL 2.0 MG/DL Total Bilirubin 0.7 MG/DL 0.5 MG/DL Aspartate Amino Transf 31 U/L 21 U/L (AST/SGOT) Alanine Aminotransferase 32 U/L 30 U/L (ALT/SGPT) Alkaline Phosphatase 102 U/L 110 U/L Lactate Dehydrogenase 323 U/L Total Protein 6.9 GM/DL 6.6 GM/DL Albumin 1.7 GM/DL 1.6 GM/DL Imaging Last Impressions Chest X-Ray 07/28/16 0600 Signed Impressions: Service Date/Time: Thursday, July 28, 2016 03:09 - CONCLUSION: No significant change. Hazy opacity remains in both lungs most consistent with congestive heart failure. Alonzo Bradshaw MD Abdomen X-Ray 07/24/16 0749 Signed Impressions: Service Date/Time: July 08:28 - CONCLUSION: Air-filled bowel loops centrally but no obstruction seen. Uli Atkins MD Renal Ultrasound 07/20/16 Signed Impressions: Service Date/Time: Wednesday, July 20, 2016 14:32 - CONCLUSION: 1. No acute findings. Renal ultrasound unremarkable. Bladder was not well-visualized. Jose Martin Valderrama MD Lower Extremity Ultrasound 07/20/16 Signed Impressions: Service Date/Time: Wednesday, July 20, 2016 14:39 - CONCLUSION: Negative exam with no evidence of deep venous thrombosis. Alonzo Bradshaw MD Head CT 07/20/16 Signed Impressions: Service Date/Time: Wednesday, July 20, 2016 18:21 - CONCLUSION: 1. No acute intracranial abnormalities. Mild mucosal thickening of the ethmoid air cells. Jose Martin Valderrama MD Chest CT 07/20/16 0000 Signed Impressions: Service Date/Time: Wednesday, July 20, 2016 11:28 - CONCLUSION: 1. Chronic scarring in the lung bases left greater than right. 2. No focal consolidation. 3. Bilateral adrenal masses left greater than right most consistent with adenomas. 4. Nonspecific bowel gas pattern noted in the upper abdomen with air-fluid levels in the small bowel. Alonzo Bradshaw MD Abdomen/Pelvis CT 07/20/16 0000 Signed Impressions: Service Date/Time: Wednesday, July 20, 2016 18:24 - CONCLUSION: 1. Lower abdominal ventral midline hernia containing loop of small bowel. Small bowel is mildly distended somewhat diffusely with fluid and air. Cannot exclude a low grade partial bowel obstruction in the area of herniation. 2. No abnormal fluid collections to suggest abscess. No free air or free fluid. 3. Basilar and dependent lung consolidation, left greater than right. Pneumonia could have this appearance. Small left effusion. 4. NG tip in stomach. Inferior vena cava filter present. Connelly catheter in bladder. Jose Martin Valderrama MD Physical Exam GENERAL: opens eyes, and intubated, NAD SKIN: Cool and dry. No generalized rash, no mottling. HEAD: Atraumatic. Normocephalic. No temporal or scalp tenderness. EYES: [place] conjunctivae. Pupils equal round and reactive. Less scleral edema. No scleral icterus. No injection or drainage. ENT: Nose without bleeding, or purulent drainage. Endotracheal tube is in the mouth, has moist mucosa. Edentulous NECK: Trachea midline. No JVD or lymphadenopathy. Supple, nontender, no meningeal signs. CARDIOVASCULAR: Regular rate and rhythm without murmurs, gallops, or rubs. Tachycardic RESPIRATORY: Breath sounds equal bilaterally. Has scattered rales. Decreased breath sounds at the bases. GASTROINTESTINAL: Abdomen soft, globular, bowel sounds are present and normoactive. Mildly distended, no reaction to palpation. No hepato- splenomegaly, or palpable masses. MUSCULOSKELETAL: Extremities without clubbing, cyanosis, or edema. . Feet warm. No joint effusion, or edema noted. NEUROLOGICAL: Sedated on the vent PSYCH: Unable to assess LINE: LIJ and RIJ lines with no evidence of infection : Connelly in place, urine looks clear Assessment & Plan Remarks IMPRESSION Group A Strep sepsis, with shock, MOSF, present on admission, source is not established - ?primary bacteremia Respiratory failure Renal failure, sp CVVHD Thrombocytopenia due to sepsis, no DIC - slowly improving Known DM, HTN, PVD, CAD Diarrhea, abx associated Critically ill, hemodynamically unstable, though improved RECOMMENDATION Monitor temps Stop Clindamycin Continue IV Unasyn Weaning per [facility] Monitor progress D/W Dr Hicks ([facility]) D/W RN Ceci Alexis Dr, MD July 29, 2016 13:25
[2016-07-29] MEDS ORDERED: SODIUM CHLORIDE 0.9% FLUSH 10 ML FLUSH IV FLUSH PRN (14:00)
[2016-07-29] MEDS ORDERED: ONDANSETRON HCL 4 MG/2 ML VIAL IV PRN (14:00)
[2016-07-29] MEDS ORDERED: diphenhydrAMINE HCL 25 MG CAP PO PRN (14:00)
[2016-07-29] MEDS ORDERED: ALBUMIN HUMAN 25% 25 GM/100 ML BAGP IV PRN (14:00)
[2016-07-29] MEDS ORDERED: MANNITOL 12.5 GM/50 ML VIAL IV PRN (14:00)
[2016-07-29] MEDS ORDERED: NS 250 ML IV PRN (14:00)
[2016-07-29] MEDS ORDERED: SODIUM CHLOR 0.9% 1000 ML IV PRN (14:00)
[2016-07-29] MEDS ORDERED: GELATIN 12 MM/7 MM FOAM TOPICAL PRN (14:00)
[2016-07-29] MEDS ORDERED: cloNIDine HCL 0.1 MG TAB PO PRN (14:00)
[2016-07-29] MEDS ORDERED: HEPARIN SODIUM - IV 10,000 UNITS/10 ML VIAL IV FLUSH PRN (14:00)
[2016-07-29] MEDS ORDERED: NITROGLYCERIN 0.4 MG SL 25 TABS/BTL SL PRN (14:00)
[2016-07-29] MEDS ORDERED: ACETAMINOPHEN 325 MG TAB PO PRN (14:00)
--- NOTE | 2016-07-29 17:13 | HHI.HCPN ---
Reason for visit a. To assist with evaluation and management of symptoms including: dyspnea; pain; encephalopathy b. To assist medical decision maker(s) with: better understanding of current medical conditions; weighing benefits/burdens of medical treatment options; making medical treatment decisions. . Subjective/Interval History INTERVAL NOTE Mr. Lemus remains in the SICU. Off sedation today, tolerating CPAP on exam. Awake with eyes open; patient obtunded. Infectious disease continues to follow , follow-up C/S remain negative. Clindamycin discontinued, patient remains on IV Unasyn. No evidence of pain on current regimen per nurses. Temp 98.0-99.9; BPs 10339/3767; [place] [address] BUN: 91, creatinine 4.13, GFR 14. Status post hemodialysis per nursing report; 3000ml removed. Follow-up chest x-ray on 07/28/2016 showing no significant changes, hazy opacity remains in both lungs most consistent with congestive heart failure. . Advance Directives Living Will: Completed, but not made available Health Care Surrogate: Completed, but not made available Durable Power of High Risk Case Manager: Never completed Advance Directive Specifics Date completed: will bring in the advance directive. Date of completion is unknown at this time. . Health Care Surrogate(s): will bring in a copy of the advance directive. She reports that she is listed as the designated health care surrogate. . Documented care wishes: will bring in a copy of the advance directive. At this point we do not have any written documentation of the patient's health care goals/preferences. . Objective Vital Signs Date Time Temp Pulse Resp B/P Pulse Ox O2 Delivery O2 Flow Rate FiO2 07/29/16 16:49 96 50 07/29/16 16:00 99.9 98 20 95 117/51 07/29/16 16:00 40 07/29/16 16:00 98 07/29/16 15:20 40 07/29/16 14:22 96 40 07/29/16 14:22 40 07/29/16 14:15 40 07/29/16 14:00 105 07/29/16 12:00 98.4 94 20 97 159/50 07/29/16 12:00 40 07/29/16 12:00 94 07/29/16 11:55 97 40 07/29/16 10:00 89 07/29/16 08:02 97 40 07/29/16 08:00 40 07/29/16 08:00 98.8 86 20 97 143/48 07/29/16 08:00 81 07/29/16 06:00 97/37 107/52 07/29/16 04:11 98 40 07/29/16 04:00 40 07/29/16 04:00 98.0 84 20 97 147/67 07/29/16 01:04 97 40 07/29/16 00:10 07/29/16 00:10 40 07/28/16 20:09 96 40 07/28/16 20:01 93 07/28/16 20:00 98.9 98 20 96 147/67 07/28/16 20:00 40 07/28/16 18:00 81 07/28/16 18:00 130/74 118/56 Intake & Output 07/29/16 07/29/16 07:00 19:00 Intake Total 1080 ml 840 ml Output Total 200 ml 3700 ml Balance 880 ml -2860 ml Intake IV Total 555 ml 550 ml Tube Feeding 525 ml 290 ml Output Urine Total 200 ml 200 ml Stool Total 500 ml Hemodialysis 0 ml 3000 ml . Physical Exam CONSTITUTIONAL/GENERAL: This is an overweight male intubated, no longer on pressors. Tolerating CPAP trial on exam. TUBES/LINES/DRAINS: Orotracheal tube; orogastric tube; left internal jugular central line; vas-cath right internal jugular; peripheral IV; SCDs; Connelly catheter; warming blanket intermittent SKIN: No jaundice, rashes, or lesions. No wounds seen anteriorly. Skin temperature warm but not diaphoretic. EYES: Pupils equal and round. No scleral icterus. No injection or drainage. Fundi not examined. ENT: Unable to assess hearing. Nose without bleeding or purulent drainage. NECK: Trachea midline. CARDIOVASCULAR: Intermittently tachycardic. Regular rhythm without murmurs, gallops, or rubs. No JVD. RESPIRATORY/CHEST: Orally intubated, tolerating CPAP trial on exam Breath sounds equal bilaterally but air movement diminished at bases, scattered rhonchi GASTROINTESTINAL: Abdomen soft, non-tender, slightly distended. GENITOURINARY: Without palpable bladder distension. Connelly catheter in place. MUSCULOSKELETAL: Extremities without clubbing, cyanosis, or edema. No mottling. NEUROLOGICAL: Obtunded. Withdraws to noxious stimulus. PSYCHIATRIC: Unable to assess due to sedation.. . Diagnostic Tests Laboratory Laboratory Tests Test 07/26/16 07/27/16 07/27/16 07/28/16 17:23 04:49 06:00 03:49 Sodium Level 140 MEQ/L 139 MEQ/L 136 MEQ/L (136-145) (136-145) (136-145) Potassium Level 4.3 MEQ/L 3.3 MEQ/L 3.8 MEQ/L (3.5-5.1) (3.5-5.1) (3.5-5.1) Chloride Level 107 MEQ/L 104 MEQ/L 101 MEQ/L (98-107) (98-107) (98-107) Carbon Dioxide Level 18.0 MEQ/L 21.4 MEQ/L 20.7 MEQ/L (21.0-32.0) (21.0-32.0) (21.0-32.0) Anion Gap 15 MEQ/L (5-15) 14 MEQ/L (5-15) 14 MEQ/L (5-15) Blood Urea Nitrogen 67 MG/DL (7-18) 74 MG/DL (7-18) 71 MG/DL (7-18) Creatinine 3.07 MG/DL 3.28 MG/DL 3.05 MG/DL (0.60-1.30) (0.60-1.30) (0.60-1.30) Estimat Glomerular Filtration 20 ML/MIN (>89) 19 ML/MIN (>89) 20 ML/MIN (>89) Rate Random Glucose 183 MG/DL 152 MG/DL 252 MG/DL (74-106) (74-106) (74-106) Calcium Level 7.2 MG/DL 6.6 MG/DL 7.2 MG/DL (8.5-10.1) (8.5-10.1) (8.5-10.1) Protein Corrected Calcium 7.7 MG/DL 7.0 MG/DL 7.3 MG/DL (8.5-10.1) (8.5-10.1) (8.5-10.1) Total Protein 6.2 GM/DL 6.2 GM/DL 6.9 GM/DL (6.4-8.2) (6.4-8.2) (6.4-8.2) Blood Gas Puncture Site RENAE Blood Gas Patient Temperature 98.6 Blood Gas HCO3 19 mmol/L (22-26) Blood Gas Base Excess -5.8 mmol/L (-2-2) Blood Gas Oxygen Saturation 95 % (90-100) Arterial Blood pH 7.37 (7.380-7.420) Arterial Blood Partial 33 mmHg (38-42) Pressure CO2 Arterial Blood Partial 119 mmHg Pressure O2 (61-120) Arterial Blood Oxygen Content 10.8 Vol % (12.0-20.0) Arterial Blood 0.2 % (0-4) Carboxyhemoglobin Arterial Blood Methemoglobin 1.1 % (0-2) Blood Gas Hemoglobin 7.9 G/DL (12.0-16.0) Oxygen Delivery Device VENTILATOR Blood Gas Ventilator Setting AC20/550/+10 Blood Gas Inspired Oxygen 45 % White Blood Count 10.0 TH/MM3 9.9 TH/MM3 (4.0-11.0) (4.0-11.0) Red Blood Count 2.56 MIL/MM3 2.62 MIL/MM3 (4.50-5.90) (4.50-5.90) Hemoglobin 7.8 GM/DL 8.1 GM/DL (13.0-17.0) (13.0-17.0) Hematocrit 22.7 % 23.5 % (39.0-51.0) (39.0-51.0) Mean Corpuscular Volume 88.6 FL 89.5 FL (80.0-100.0) (80.0-100.0) Mean Corpuscular Hemoglobin 30.4 PG 30.8 PG (27.0-34.0) (27.0-34.0) Mean Corpuscular Hemoglobin 34.3 % 34.4 % Concent (32.0-36.0) (32.0-36.0) Red Cell Distribution Width 14.2 % 14.4 % (11.6-17.2) (11.6-17.2) Platelet Count 64 TH/MM3 79 TH/MM3 (150-450) (150-450) Mean Platelet Volume 10.1 FL 10.6 FL (7.0-11.0) (7.0-11.0) Neutrophils (%) (Auto) 84.4 % 93.1 % (16.0-70.0) (16.0-70.0) Lymphocytes (%) (Auto) 9.1 % 4.2 % (9.0-44.0) (9.0-44.0) Monocytes (%) (Auto) 2.1 % (0.0-8.0) 2.2 % (0.0-8.0) Eosinophils (%) (Auto) 3.8 % (0.0-4.0) 0.3 % (0.0-4.0) Basophils (%) (Auto) 0.6 % (0.0-2.0) 0.2 % (0.0-2.0) Neutrophils # (Auto) 8.4 TH/MM3 9.2 TH/MM3 (1.8-7.7) (1.8-7.7) Lymphocytes # (Auto) 0.9 TH/MM3 0.4 TH/MM3 (1.0-4.8) (1.0-4.8) Monocytes # (Auto) 0.2 TH/MM3 0.2 TH/MM3 (0-0.9) (0-0.9) Eosinophils # (Auto) 0.4 TH/MM3 0.0 TH/MM3 (0-0.4) (0-0.4) Basophils # (Auto) 0.1 TH/MM3 0.0 TH/MM3 (0-0.2) (0-0.2) CBC Comment AUTO DIFF AUTO DIFF Differential Total Cells 100 Counted Neutrophils % (Manual) 67 % (16-70) Band Neutrophils % 16 % (0-6) Lymphocytes % 11 % (9-44) Monocytes % 1 % (0-8) Eosinophils % 4 % (0-4) Neutrophils # (Manual) 8.4 TH/MM3 (1.8-7.7) Myelocytes 1 % (0-0) Differential Comment FINAL DIFF AUTO DIFF MANUAL CONFIRMED Platelet Estimate LOW (NORMAL) LOW (NORMAL) Platelet Morphology Comment NORMAL NORMAL (NORMAL) (NORMAL) Prothrombin Time 12.3 SEC (9.8-11.6) Prothromb Time International 1.1 RATIO Ratio Activated Partial 31.5 SEC Thromboplast Time (24.3-30.1) Fibrinogen 604 mg/dL (227-377) Lactic Acid Level 0.6 mmol/L (0.4-2.0) Phosphorus Level 4.9 MG/DL 5.7 MG/DL (2.5-4.9) (2.5-4.9) Magnesium Level 1.6 MG/DL 1.7 MG/DL (1.5-2.5) (1.5-2.5) Total Bilirubin 0.6 MG/DL 0.7 MG/DL (0.2-1.0) (0.2-1.0) Aspartate Amino Transf 30 U/L (15-37) 31 U/L (15-37) (AST/SGOT) Alanine Aminotransferase 29 U/L (12-78) 32 U/L (12-78) (ALT/SGPT) Alkaline Phosphatase 80 U/L (45-117) 102 U/L (45-117) Albumin 1.4 GM/DL 1.7 GM/DL (3.4-5.0) (3.4-5.0) Lactate Dehydrogenase 323 U/L (87-241) Test 07/28/16 07/29/16 07/29/16 07:59 04:45 08:55 Activated Partial 29.1 SEC Thromboplast Time (24.3-30.1) Sodium Level 136 MEQ/L (136-145) Potassium Level 3.3 MEQ/L (3.5-5.1) Chloride Level 102 MEQ/L (98-107) Carbon Dioxide Level 18.7 MEQ/L (21.0-32.0) Anion Gap 15 MEQ/L (5-15) Blood Urea Nitrogen 91 MG/DL (7-18) Creatinine 4.13 MG/DL (0.60-1.30) Estimat Glomerular Filtration 14 ML/MIN (>89) Rate Random Glucose 336 MG/DL (74-106) Calcium Level 7.4 MG/DL (8.5-10.1) Protein Corrected Calcium 7.7 MG/DL (8.5-10.1) Phosphorus Level 5.3 MG/DL (2.5-4.9) Magnesium Level 2.0 MG/DL (1.5-2.5) Total Bilirubin 0.5 MG/DL (0.2-1.0) Aspartate Amino Transf 21 U/L (15-37) (AST/SGOT) Alanine Aminotransferase 30 U/L (12-78) (ALT/SGPT) Alkaline Phosphatase 110 U/L (45-117) Total Protein 6.6 GM/DL (6.4-8.2) Albumin 1.6 GM/DL (3.4-5.0) Hepatitis A IgM Antibody NEGATIVE (NEGATIVE) Hepatitis B Surface Antigen NEGATIVE (NEGATIVE) Hepatitis B Core IgM Antibody NEGATIVE (NEGATIVE) Hepatitis C Antibody NEGATIVE (NEGATIVE) . Result Diagram: 07/28/16 0349 07/29/16 0445 Imaging Last 72 hours Impressions Chest X-Ray 07/28/16 0600 Signed Impressions: Service Date/Time: Thursday, July 28, 2016 03:09 - CONCLUSION: No significant change. Hazy opacity remains in both lungs most consistent with congestive heart failure. Alonzo Bradshaw MD . Procedures * Intubation/mechanical ventilation 07/20/16 * Left internal jugular central line placement 07/20/16 * Right jugular vas-cath placement * CRRT . Assessment and Plan Disease Oriented Problem List: (1) Severe sepsis with acute organ dysfunction Comment: Blood cx growing out Group A strep . (2) Respiratory failure (3) Lactic acidosis Comment: Improved -- but metabolic acidosis persists with elevated anion gap. . (4) Hypoxia (5) Peripheral vascular disease (6) Hypertension (7) Dyslipidemia (8) Chronic anticoagulation (9) Elevated troponin (10) History of DVT (deep vein thrombosis) (11) Acute kidney injury Comment: Now on CRRT. (12) Thrombocytopenia (13) Metabolic acidosis Comment: This has remained profound and persistent in spite of normalization of lactic acid. . Symptom Scale: (1) Pain 0-10 Scale: Unable to quantify Comment: Patient has chronic pain mostly in the lower extremities from a combination of peripheral vascular disease and diabetic neuropathy. He had been prescribed opiates in the past but normally takes no analgesics because he doesn't like the side effects. Additional sources of discomfort at this time would include prolonged bedbound status; orotracheal/orogastric intubations; Connelly catheter; vascular access lines. . (2) Dyspnea 0-10 Scale: Unable to quantify (dyspnea seems managed with mechanical ventilation.) Comment: Controlled with mechanical ventilation, tolerating CPAP trials today . (3) Encephalopathy 0-10 Scale: Unable to quantify Comment: Encephalopathy is most likely multifactorial and in large part due to the septic shock. Based on the history, it is unlikely that the duration of hypoglycemia or hypotension would've caused any type of permanent damage. There is no prior history of underlying dementia. . Pertinent Non-Medical Issues Psychosocial: Patient is well supported by his spouse and daughter who live locally, many friends who live locally, and 2 daughters who have flown in from [place] and [place]. Spiritual: Patient was raised in a Mosque home. Now identifies himself as a Judaism. Yazidi and spirituality have not played a large part in his life of late. Legal: reports the patient has completed an advanced directive. She will bring a copy into scanned into the medical record. Ethical issues impacting care: Patient is currently incapacitated to make his own health care decisions. It remains uncertain if he will regain capacity to do so. . Important Contacts == Spouse (Alysia Lemus) [phone] == Daughter (Adenike) [phone] . Prognosis Though Mr Lemus is quite critically ill with septic shock and multiple organs being affected, it is also important to note that in spite of his underlying chronic illnesses , his functional status was reasonably good prior to becoming acutely ill so suddenly. Family, understandably, want to give him a chance to see if he is able to get through this acute period. He had a similar episode of severe illness approximately 10 years ago after being hospitalized with a ruptured appendix. Family has witnessed him being able to recover from that. The rapidity of progression to overwhelming sepsis is a poor prognostic sign. In addition, he will need ample fluids to fight shock and hypotension which can easily lead to congestive failure given his history. It is doubtful family will want to go forward with trach/PEG unless there were good reason to believe he would recover. . . Code Status: Full Code Plan == Code Status : FULL CODE == Decision Making: The patient is currently incapacitated to make his own health care decisions. will bring in the patient's completed advanced directive. She informs me that she is listed as the designated health care surrogate. If there is no advanced directive, would still be asked to serve as proxy decision-maker under the hierarchy of proxy's in the [place] statutes. == Goals of medical treatment: The patient's spouse and 3 of the daughters present want ongoing and full aggressive care for the time being. They are aware how ill the patient is and want to see if he is able to turn the corner. As noted above they would want all resuscitation attempts tried at this point in time. On the other hand, family reports that the patient would not want to be maintained on life support if there is no hope for meaningful recovery. is even uncertain if patient would ever agree to ongoing hemodialysis. If the patient continues to decline in spite of aggressive care were there is no obvious improvement in spite of aggressive care want to reconsider goals. == Pain: As noted above, patient has a number of different pain syndromes. Patient is off sedation today. PRN [place] and Morphine are available, but have not been utilized. Patient showing no signs or symptoms of nonverbal pain on exam. == Dyspnea: Dyspnea currently being controlled with mechanical ventilation, tolerating CPAP trials today 07/29/16. No further recommendations at this time. == Encephalopathy: Also likely due to a multifactorial delirium. No evidence at this time to suggest there is been any kind of long lasting adverse effects from either hypoglycemia or hypotension or hypoxia. No further recommendations at this time. == is bringing in a copy of the patient's advanced directive for us to scan into the electronic medical record. Has not arrived yet. Have asked nursing staff to request this as well. == Palliative care will continue to follow to assist with symptom management and to further clarify goals of medical treatment as the clinical course evolves. . Attestation To help prompt me to consider important information that might be impacting today's encounter and assessment, information from prior notes written by myself or my colleagues may have been "brought forward" into today's note. My signature on this note, however, is an attestation that I personally performed the exam, history, and/or decision-making noted today, and, unless otherwise indicated, the interactions with patient, family, and staff as well as the review of records all occurred today. I also attest that the listed assessment and stated plan reflect my best clinical judgment today based on the combination of historical information, prior notes, and today's exam/ interactions. When time spent is documented, it refers only to time spent today by the signer, or if indicated, combined time spent today by collaborating physician/nurse practitioner. . Kandy Contreras July 29, 2016 17:13
--- NOTE | 2016-07-29 17:37 | HHI.NPPN ---
Subjective History of Present Illness 71-year-old male with past medical history of diabetes mellitus, hypertension, ischemic heart disease, peripheral neuropathy, chronic kidney disease, history of deep vein thrombosis, hyperlipidemia was brought to the hospital because of generalized weakness, confusion and vomiting and diarrhea. I was called to see the patient because of elevated BUN and creatinine. The patient has history of acute kidney injury in the past and chronic kidney disease. His creatinine was around 1.2 to 1.4, this was in 2012. Additional Remarks Patient is on the vent. and on sedation, was on CPAP for some time. Review of Systems General General Remarks Intubated and sedated. Objective Data Data 07/28/16 07/29/16 19:00 07:00 Intake Total 1023 ml 1080 ml Output Total 766 ml 200 ml Balance 257 ml 880 ml Intake IV Total 708 ml 555 ml Tube Feeding 315 ml 525 ml Output Urine Total 125 ml 200 ml Hemodialysis 641 ml 0 ml Vital Signs Date Time Temp Pulse Resp B/P Pulse Ox O2 Delivery O2 Flow Rate FiO2 07/29/16 16:49 96 50 07/29/16 16:00 99.9 98 20 95 117/51 07/29/16 16:00 40 07/29/16 16:00 98 07/29/16 15:20 40 07/29/16 14:22 96 40 07/29/16 14:22 40 07/29/16 14:15 40 07/29/16 14:00 105 07/29/16 12:00 98.4 94 20 97 159/50 07/29/16 12:00 40 07/29/16 12:00 94 07/29/16 11:55 97 40 07/29/16 10:00 89 07/29/16 08:02 97 40 07/29/16 08:00 40 07/29/16 08:00 98.8 86 20 97 143/48 07/29/16 08:00 81 07/29/16 06:00 97/37 107/52 07/29/16 04:11 98 40 07/29/16 04:00 40 07/29/16 04:00 98.0 84 20 97 147/67 07/29/16 01:04 97 40 07/29/16 00:10 07/29/16 00:10 40 07/28/16 20:09 96 40 07/28/16 20:01 93 07/28/16 20:00 98.9 98 20 96 147/67 07/28/16 20:00 40 07/28/16 18:00 81 07/28/16 18:00 130/74 118/56 -: 07/28/16 0349 07/29/16 0445 Physical Exam General Appearance Remarks Intubated and sedated. Eyes Eye Exam: Pupils Equal Throat Throat Exam: Oral Mucosa [place] & Moist Neck Neck Exam: Neck Supple Pulmonary Resp Exam: Rhonchi, Decreased Bases, Diminished Breath Sounds, Poor Inspiratory Effort Cardiology CV Exam: Regular, Normal Sinus Rhythm Gastrointestinal/Abdomen GI Exam: Soft, Non-Tender, Bowel Sounds Present Extremeties Extremities Exam: Trace Edema Neurologic Neuro Exam: Unresponsive, Sedated Assessment/Plan Assessment Summary: ADALID/Acute Renal Failure Electrolyte Assessment: Metabolic Acidosis Problem List: (1) Diabetes mellitus with neuropathy (2) Leukocytosis (3) Peripheral vascular disease (4) Severe sepsis with acute organ dysfunction (5) History of DVT (deep vein thrombosis) (6) Hypoxia (7) Acidosis (8) Lactic acidosis Plan Patient has low urine out put. BP is has improved on vasopressin pressor. BC results noted, seen by ID. On Unasyn and ID following. Repeat BC negative. CPK also elevated, but improving. BP is improving, HD done and 3 liters was removed. Tolerated well. On low dose pressors. Was on CPAP, weaning as per CCM. Follow labs in AM, and possible HD again tomorrow. 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
[2016-07-29] MEDS: fentaNYL DRIP 250 ML IV SCH (19:39)
[2016-07-30] VITALS (23 sets, daily range): BP systolic 120–156; BP diastolic 46–66; PULSE 87–113; RESP 16–28; TEMP 97.3–100.8; O2SAT 94–100
[2016-07-30] MEDS: ACETAMINOPHEN 325 MG TAB PO PRN ×2 (00:03→05:08)
[2016-07-30] MEDS: METOCLOPRAMIDE HCL 10 MG/2 ML VIAL IV PUSH SCH ×3 (00:03→15:27)
[2016-07-30] MEDS: INSULIN ASPART SUPPLEMENTAL SCALE SQ SCH ×5 (00:56→23:50)
[2016-07-30] MEDS: AMPICILLIN-SULBACTAM INJ 1,500 MG in SODIUM CHLORIDE 0.9% INJ 100 ML IV SCH ×3 (01:08→17:23)
[2016-07-30] MEDS: CHLORHEXIDINE GLUCONATE 2 % 1 PACK (2 CLOTHS) TOP SCH (03:10)
[2016-07-30] MEDS: PROPOFOL 1000 MG/100 ML INJ 100 ML IV SCH ×4 (03:15→19:48)
[2016-07-30 03:28] LABS: AUTOMATED NEUTROPHIL # 8.6 TH/MM3 (1.8-7.7); BASOPHIL # 0.1 TH/MM3 (0-0.2); BASOPHIL % 0.9 % (0.0-2.0); EOSINOPHIL # 0.2 TH/MM3 (0-0.4); EOSINOPHIL % 1.5 % (0.0-4.0); LYMPH % 7.3 % (9.0-44.0); LYMPHOCYTE # 0.7 TH/MM3 (1.0-4.8); MEAN CORPUSCULAR HEMOGLOBIN 31.2 PG (27.0-34.0); MEAN CORPUSCULAR HGB CONC 35.1 % (32.0-36.0); MONO % 3.3 % (0.0-8.0); PLATELET COUNT 111 TH/MM3 (150-450); RED BLOOD COUNT 2.21 MIL/MM3 (4.50-5.90); RED CELL DISTRIBUTION WIDTH 13.9 % (11.6-17.2); WHITE BLOOD COUNT 9.8 TH/MM3 (4.0-11.0)
[2016-07-30 03:31] LABS: HEMO FLAGS DIFF FINAL
[2016-07-30 03:33] LABS: HEMATOCRIT 19.7 % (39.0-51.0)
[2016-07-30 04:13] LABS: BICARBONATE 25.6 MEQ/L (21.0-32.0); TOTAL BILIRUBIN ADULT 0.5 MG/DL (0.2-1.0)
[2016-07-30 04:31] LABS: CALCIUM-PROTEIN CORRECTED 7.4 MG/DL (8.5-10.1); POTASSIUM 2.9 MEQ/L (3.5-5.1)
--- NOTE | 2016-07-30 05:47 | RADRPT ---
EXAM DATE/TIME: 07/30/2016 05:07 [facility] COMPARISON: CHEST SINGLE AP, July 28, 2016, 3:09. INDICATIONS : Shortness of breath. MEDICAL HISTORY : Congestive heart failure. Diabetes mellitus type II. Renal failure, chronic.Hypertension SURGICAL HISTORY : Appendectomy. Colon resection ENCOUNTER: Subsequent ACUITY: 1 week PAIN SCORE: Non-responsive. LOCATION: Bilateral chest FINDINGS: A single AP semierect portable view of the chest was obtained. The endotracheal tube remains in place with the tip approximately 3-4 cm above the krissy. A nasogastric tube is seen coursing through the esophagus and into the stomach. The left internal jugular central venous line remains in place. The r ight internal jugular central venous line remains in place. Hazy opacities is present in both lungs w hich is increased in the right. Both costophrenic remaining bones remain blunted. The heart size is m oderately enlarged. CONCLUSION: 1. Interval increase in hazy opacity in the right lung. 2. Bilateral effusions are again noted with cardiomegaly and the findings are most characteristic of congestive heart failure. Alonzo Bradshaw MD on July 30, 2016 at 5:44 Board Certified Radiologist. This report was verified electronically.
[2016-07-30 06:59] LABS: BLOOD GAS BASE EXCESS -0.3 mmol/L (-2-2); BLOOD GAS CARBOXYHEMOGLOBIN 1.8 % (0-4); BLOOD GAS HCO3 23 mmol/L (22-26); BLOOD GAS METHEMOGLOBIN 1.6 % (0-2); BLOOD GAS O2 HGB SATURATION 94 % (90-100); BLOOD GAS OXYGEN CONTENT 9.5 Vol % (12.0-20.0); BLOOD GAS PCO2 34 mmHg (38-42); BLOOD GAS PO2 96 mmHg (61-120); BLOOD GAS TOTAL HGB 7.1 G/DL (12.0-16.0); TEMP CORR TO 98.6
[2016-07-30 07:00] LABS: CRITICAL VALUE NO; DRAW SITE ART LINE; FIO2 50 %; OXYGEN DEVICE VENTILATOR; STAT YES; VENT SETTINGS AC/16/550/PEEP5
[2016-07-30] MEDS: CHLORHEXIDINE 0.12% (ORAL KIT) 15 ML CUP MT SCH ×2 (08:00→20:00)
--- NOTE | 2016-07-30 08:28 | RADRPT ---
EXAM DATE/TIME: 07/30/2016 07:57 [facility] COMPARISON: CT ABDOMEN & PELVIS W/O CONTRAST, July 20, 2016, 18:24. INDICATIONS : Evaluate for retroperitoneal hematoma ORAL CONTRAST: No oral contrast ingested. RADIATION DOSE: 16.57 CTDIvol (mGy) MEDICAL HISTORY : Cardiovascular disease. Hypertension. Renal failure, chronic. SURGICAL HISTORY : Appendectomy. ENCOUNTER: Initial ACUITY: 1 day PAIN SCALE: Non-responsive LOCATION: lower quadrant TECHNIQUE: Volumetric scanning of the abdomen and pelvis was performed. Using automated exposure control and ad justment of the mA and/or kV according to patient size, radiation dose was kept as low as reasonably achievable to obtain optimal diagnostic quality images. FINDINGS: LOWER LUNGS: Bilateral pleural effusions are small and posteriorly layering. Consolidation with air bronchograms i nvolving the basilar segments bilaterally. LIVER: Homogeneous density without lesion. There is no dilation of the biliary tree. No calcified gallston es. SPLEEN: Normal size without lesion. PANCREAS: The pancreas is atrophic. Multiple popcorn-like calcifications are seen scattered throughout the panc reas. No pseudocyst or acute inflammation appreciated. KIDNEYS: Normal in size and shape. There is no mass, stone, or hydronephrosis. Calcifications associated with the renal christel bilaterally are felt to be atherosclerotic in nature. ADRENAL GLANDS: A 1.9 cm nodule is seen involving the left adrenal gland. This is stable. A 1.6 cm nodule seen involv ing the right adrenal gland. This is stable as well VASCULAR: Diffuse calcified plaque involving the aorta and its major branches. Mild fusiform aneurysmal change of the infrarenal aorta measuring 3.6 x 3.1 cm. This is stable in the prior study. An IVC filter is n oted. BOWEL/MESENTERY: There is a rectal tube noted. The bowel loops are normal in caliber. Air-fluid levels are seen scatte red throughout the colon. No free air or free fluid. No appreciable wall thickening. ABDOMINAL WALL: A small ventral hernia containing fat projects just cephalad to the umbilicus. An umbilical hernia se en containing loops of small bowel. No stranding to suggest incarceration. RETROPERITONEUM: There is no lymphadenopathy. BLADDER: No wall thickening or mass. REPRODUCTIVE: Within normal limits. INGUINAL: There is no lymphadenopathy or hernia. MUSCULOSKELETAL: Within normal limits for patient age. CONCLUSION: 1. No retroperitoneal hematoma. 2. Bibasilar pulmonary consolidations with small effusions. 3. Chronic pancreatitis. No acute inflammation observed. 4. 2 ventral hernias. 5. IVC filter. 6. 3.6 x 3.1 cm AAA. Omer Cheng Jr., MD on July 30, 2016 at 8:22 Board Certified Radiologist. This report was verified electronically.
[2016-07-30] MEDS ORDERED: POTASSIUM CHLOR 40 MEQ PREMIX 100 ML IV ONE (08:45)
[2016-07-30] MEDS ORDERED: HYDROCORTISONE SOD SUCCINATE 100 MG VIAL IV PUSH SCH (09:00)
[2016-07-30] MEDS: SODIUM CHLORIDE 0.9% FLUSH 10 ML FLUSH IVF SCH (09:00)
[2016-07-30] MEDS: SODIUM CHLORIDE 0.9% FLUSH 10 ML FLUSH IV FLUSH SCH ×2 (09:00→21:00)
[2016-07-30] MEDS: INSULIN DETEMIR 100 UNITS/ML VIAL SQ SCH ×2 (09:00→21:37)
[2016-07-30] MEDS: DOCUSATE SODIUM 100 MG CAP PO SCH ×2 (09:00→21:00)
[2016-07-30] MEDS: SENNOSIDES SYRUP 8.8 MG/5 ML CUP OG-TUBE SCH (09:14)
[2016-07-30] MEDS: HEPARIN SODIUM - SQ 10,000 UNITS/ML VIAL SQ SCH ×2 (09:14→20:17)
[2016-07-30] MEDS: ASPIRIN 81 MG CHEW TAB CHEW SCH (09:15)
[2016-07-30] MEDS: PANTOPRAZOLE SODIUM 40 MG VIAL IV SCH (09:15)
--- NOTE | 2016-07-30 09:48 | HHI.CCPN ---
Subjective Remarks/Hospital Course 71-year-old male. Date of admission 07/20/2016. Past records includes diabetes with neuropathy and nephropathy, hypertension, dyslipidemia, chronic pain syndrome, history of DVT/PE on chronic anticoagulation, peripheral vascular disease with history of AAA, and osteoporosis. Patient recently C [place] 07/06/16. Patient sick contacts would include neighbor with "vital illness. Patient is to [facility] today with acute onset of diarrhea, hypoglycemia and chills. Upon arrival, patient was noted be acutely hypoxic and required a nonrebreather mask. Patient denies pleuritic chest pain , abdominal pain but positive for nausea and diarrhea. CT chest revealed bilateral lower lobe scarring, bilateral adrenal adenomas a nonspecific bowel gas pattern. Chest x-ray revealed no significant findings. Lab work included a lactic acid elevated 7.7, white blood cell count 12,000 in acute kidney injury with a creatinine of 3.0. Baseline around 1.5-2. Troponin was slightly elevated 0.14. EKG is currently pending. Upon arrival to [facility], patient was extremely mottled with rates in the 40s. Patient was emergently intubated please see note and a left IJ central line was placed. CT of the head, abdomen and pelvis currently pending. 07/21 Patient is sedated with Diprivan and Fentanyl and intubated. On Levophed 22 mics, Vasopressin and bicarb drip. BC from 07/20: GPC all 4 bottles. 07/22 Patient remains sedated and intubated On Levophed 22 mics, vasopressin and bicarb drip. Awaiting to start CVVHD today 07/23: Remains sedated, orally intubated on mech ventilation. On Levophed 15 mics per minute and low-dose vasopressin for pressor support. On CRRT. 07/24: Remains sedated, orally intubated on mechanical ventilation. On Levophed 7 mics per minute and low-dose vasopressin for pressor support. CRRT was stopped at 1:30 AM due to Air in system and has now been resumed. 2 Amps of bicarbonate given for metabolic acidosis while CRRT held and bicarbonate drip was started back yesterday 07/25: Remains critically ill, on CVVH. Levoped 6 mics per minute. White count has normalized, making slight amount of urine. Showing some signs of progress 07/26: Remains sedated, orally intubated on mechanical ventilation. Remains on Levophed 3 mics per minute, vasopressin 0.03 mics per minute. CRRT continues. 07/27: Remains sedated, orally intubated on mechanical ventilation. Remains on Levophed 2 mics per minute, vasopressin 0.03 mics per minute. On CRRT. 07/28: Remains sedated, orally intubated on mechanical ventilation. Off Levophed. Remains on vasopressin. CRRT clotted off this morning and is on hold currently. Nephrology to decide regarding regular hemodialysis as patient is now off Levophed. 07/29: Sedated, arousable, orally intubated on mechanical ventilation. Off Levophed and vasopressin drips. To be initiated on hemodialysis today. Tolerating tube feeds. 07/30: Sedated, arousable, orally intubated on mechanical ventilation. Hemoglobin dropped to 6.9 this morning no evidence of melena or rectal bleeding noted. Stat CT abdomen pelvis did not reveal any evidence of retroperitoneal hematoma. Patient is maintaining his blood pressure and has not had any hypotension. 2 units PRBCs ordered this morning. Objective Vital Signs Date Time Temp Pulse Resp B/P Pulse Ox O2 Delivery O2 Flow Rate FiO2 07/30/16 08:45 50 07/30/16 08:45 100 07/30/16 06:57 100.5 97 18 136/50 Intake and Output 07/29/16 07/29/16 07/30/16 08:00 16:00 00:00 Intake Total 433 ml 840 ml 406 ml Output Total 100 ml 3700 ml 525 ml Balance 333 ml -2860 ml -119 ml Result Diagram: 07/30/16 0320 07/30/16 0320 Other Results Laboratory Tests Test 07/30/16 06:48 Blood Gas Puncture Site ART LINE Blood Gas Patient Temperature 98.6 Blood Gas HCO3 23 mmol/L (22-26) Blood Gas Base Excess -0.3 mmol/L (-2-2) Blood Gas Oxygen Saturation 94 % (90-100) Arterial Blood pH 7.45 (7.380-7.420) Arterial Blood Partial 34 mmHg (38-42) Pressure CO2 Arterial Blood Partial 96 mmHg Pressure O2 (61-120) Arterial Blood Oxygen Content 9.5 Vol % (12.0-20.0) Arterial Blood 1.8 % (0-4) Carboxyhemoglobin Arterial Blood Methemoglobin 1.6 % (0-2) Blood Gas Hemoglobin 7.1 G/DL (12.0-16.0) Oxygen Delivery Device VENTILATOR Blood Gas Ventilator Setting AC/16/550/PEEP5 Blood Gas Inspired Oxygen 50 % Imaging Last 24 hours Impressions Chest X-Ray 07/28/16 0600 Signed Impressions: Service Date/Time: Thursday, July 28, 2016 03:09 - CONCLUSION: No significant change. Hazy opacity remains in both lungs most consistent with congestive heart failure. Alonzo Bradshaw MD Last 24 hours Impressions Chest X-Ray 07/26/16 0600 Signed Impressions: Service Date/Time: Tuesday, July 26, 2016 04:56 - CONCLUSION: No significant change. Jovan Aldirdge MD Last 48 hours Impressions Abdomen X-Ray 07/24/16 0749 Signed Impressions: Service Date/Time: July 08:28 - CONCLUSION: Air-filled bowel loops centrally but no obstruction seen. Uli Atkins MD Chest X-Ray 07/24/16 06 Signed Impressions: Service Date/Time: July 05:36 - CONCLUSION: Unchanged bibasilar infiltrates. Omer Cheng Jr., MD Last Impressions Chest X-Ray 07/21/16 0000 Signed Impressions: Service Date/Time: Thursday, July 21, 2016 22:13 - CONCLUSION: Satisfactory central line positioning. Worsening aeration. [place] Guillermo MD Renal Ultrasound 07/20/16 Signed Impressions: Service Date/Time: Wednesday, July 20, 2016 14:32 - CONCLUSION: 1. No acute findings. Renal ultrasound unremarkable. Bladder was not well-visualized. Jose Martin Valderrama MD Lower Extremity Ultrasound 07/20/16 Signed Impressions: Service Date/Time: Wednesday, July 20, 2016 14:39 - CONCLUSION: Negative exam with no evidence of deep venous thrombosis. Alonzo Bradshaw MD Head CT 07/20/16 Signed Impressions: Service Date/Time: Wednesday, July 20, 2016 18:21 - CONCLUSION: 1. No acute intracranial abnormalities. Mild mucosal thickening of the ethmoid air cells. Jose Martin Valderrama MD Chest CT 07/20/16 Signed Impressions: Service Date/Time: Wednesday, July 20, 2016 11:28 - CONCLUSION: 1. Chronic scarring in the lung bases left greater than right. 2. No focal consolidation. 3. Bilateral adrenal masses left greater than right most consistent with adenomas. 4. Nonspecific bowel gas pattern noted in the upper abdomen with air-fluid levels in the small bowel. Alonzo Bradshaw MD Abdomen/Pelvis CT 07/20/16 0000 Signed Impressions: Service Date/Time: Wednesday, July 20, 2016 18:24 - CONCLUSION: 1. Lower abdominal ventral midline hernia containing loop of small bowel. Small bowel is mildly distended somewhat diffusely with fluid and air. Cannot exclude a low grade partial bowel obstruction in the area of herniation. 2. No abnormal fluid collections to suggest abscess. No free air or free fluid. 3. Basilar and dependent lung consolidation, left greater than right. Pneumonia could have this appearance. Small left effusion. 4. NG tip in stomach. Inferior vena cava filter present. Connelly catheter in bladder. Jose Martin Valderrama MD Objective Remarks Drips: Propofol/fentanyl. Flow Trac: SVV 3 GENERAL: Patient is 71 yo critically ill intubated and sedated. SKIN: Warm and dry. HEAD: Normocephalic. EYES: Pallor present. No scleral icterus. No injection or drainage. NECK: Supple, trachea midline. No JVD or lymphadenopathy. CARDIOVASCULAR: Regular rate and rhythm without murmurs, gallops, or rubs. RESPIRATORY: Orally intubated on mechanical ventilation, Breath sounds decreased bilaterally at bases. Scattered rhonchi, no wheezing. GASTROINTESTINAL: Abdomen soft, non-tender, nondistended. Bowel sounds sluggish Neuro: Sedated, intubated. Extremities: Warm bilaterally, Bilateral edema Line: Central Venous Catheter A/P Assessment and Plan Neuro/Psych: Peripheral neuropathy Chronic pain syndrome Patient is currently on propofol/fentanyl drips for sedation/analgesia while intubated. Ativan IV when necessary for sedation. Goal RASS -2 Daily sedation vacation 07/20 CT brain: No acute intracranial abnormalities. CV: Elevated troponin Hypertension Dyslipidemia Lactic acidosis Septic shock Peripheral vascular disease History of AAA Continue with pressors to keep MAP>65mmHg as needed. Off Levophed/ vasopressin currently. Flotrac for hemodynamic monitoring. On Stress dose steroids- Hydrocortisone decreased to 50mg daily on 07/29 Continue with ASA daily Echo showed EF 35-40% Resp: Acute hypoxemic respiratory failure Tobaccoism Continue with vent support keep sat >92% Ventilator bundle Bronchodilator therapy every 4 hours with albuterol every 2 hours. PEEP decreased to +5 Daily C Pap trials CT chest 07/20 revealed left greater than right basilar scarring. Bilateral adrenal adenomas. No focal consolidation GI: Continue tube feeds- Nepro with goal rate 40ml/hr Reglan 5 mg IV every 8 hours Protonix for GI prophylaxis Colace/as needed Senokot for bowel regimen CT abdomen reviewed. Gen surgery- Dr Roman- no surgical interventions. : Strict intake output, monitor and replete electrolytes, follow BUN/creatinine. Started CRRT on 07/22, being followed by nephrology Dr. Magana. CRRT on hold since 07/28. Switched to hemodialysis on 07/29. Renal US: No acute findings Endo: Diabetes mellitus with nephropathy and neuropathy Bilateral adrenal adenoma Hyperglycemia Continue Levemir 20 units subcutaneously every 12 hourly and switch from medium to high dose sliding scale insulin on 07/29 for better glycemic control. Taper steroids. 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 HIT screen negative. Start heparin 5000 units subcutaneously every 12 hourly on 07/29. Being transfused 2 units PRBCs for drop in hemoglobin to 6.9 on 07/30. CT abdomen pelvis with no evidence of retroperitoneal hematoma. Follow H&H ID: Continue with abx per ID (Unasyn) Clindamycin stopped 07/29, vanco x 1 dose monitor for signs of infections - Pertinent cultures BC 07/20- GPC, Group A Beta strep Urine cx 07/20 : neg Strep pneumonia nad Legionella urinary Ag negative Follow up on Sputum cx, BC 07/21, 07/22- NGTD MSK: Osteoarthritis Holding vitamin D 1000 units by mouth daily. Access - Left IJ CVL placed 07/20, Art line placed 07/21 -Right IJ vascath placed 07/22 Prophylaxis - GI - Protonix - DVT - SCD/heparin SQ - Doppler US LE negative for DVT Palliative care is following Patient is critically ill with resp failure, renal failure, septic shock and multiorgan injury. Prognosis guarded. Updated patient's on 07/29 regarding current clinical condition and plan of care and she voiced understanding. I have also previously explained possible need for tracheostomy and PEG tube in about 2 weeks since getting intubated if patient is not extubatable at that time. 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 Time to perform other separately billable procedures was not included in the critical care time. Roman Hicks MD July 30, 2016 09:48
[2016-07-30] MEDS: LABETALOL HCL 100 MG/20 ML VIAL IV PRN (10:24)
--- NOTE | 2016-07-30 14:43 | HHI.IDPN ---
Subjective Subjective Remarks 71-year-old male admitted to the hospital for acute onset of diarrhea, chills and hypoglycemia. Patient apparently working in the yard July 18 and July 19. He was doing okay except for complaints on his lower extremity which is apparently chronic and related to his peripheral vascular disease. That night, the noted that the patient was breathing hard. She asked the patient and he stated that he is not short of breath. He has not complained of any sore throat, has not been congested, and has eaten without any problem. He has not had any urinary complaints. That night apparently the couldn't sleep, and around 4 :00 in the morning the patient woke up and stated that he wanted to go to the bathroom. Patient didn't make it, and had stool incontinence. He was noted to have some chills, and his blood sugars were low. He also had episode of vomiting. Patient was taken to the hospital, and since admission he is developed profound hypotension, and acidosis. He ended up getting intubated, and currently on Levophed and vasopressin. His white count is elevated, lactic acid elevated, and his creatinine is also quite elevated. His urine output has been low. Cultures done in the emergency room, are now reported as growing group A strep. Notes reviewed Low grade temps last 24 hours Doing CPAP trials Off pressors Has a lot of liquid stool Had HD yesterday Hgb low today, CT A/P no retroperitoneal bleed Antibiotics Unasyn Lines LIJ TLC RIJ vascath Past Medical History Reviewed Allergies: Coded Allergies: No Known Allergies (Verified , 07/20/16) Objective . Vital Signs Date Time Temp Pulse Resp B/P Pulse Ox O2 Delivery O2 Flow Rate FiO2 07/30/16 14:00 88 07/30/16 12:00 40 07/30/16 12:00 98.8 88 19 97 120/46 07/30/16 12:00 88 07/30/16 11:30 40 07/30/16 11:10 96 50 07/30/16 10:00 113 07/30/16 08:45 50 07/30/16 08:45 40 07/30/16 08:45 100 50 07/30/16 08:25 100 50 07/30/16 08:25 100 100 07/30/16 08:00 92 07/30/16 08:00 97.3 92 28 100 136/48 07/30/16 08:00 40 07/30/16 06:57 100.5 97 18 136/50 99 07/30/16 06:40 100.8 97 21 133/48 99 07/30/16 06:00 97 07/30/16 06:00 98 135/48 139/65 07/30/16 04:03 98 50 07/30/16 04:00 40 07/30/16 04:00 100.4 94 17 134/63 98 144/47 07/30/16 04:00 93 07/30/16 02:00 95 07/30/16 01:02 97 50 07/30/16 00:00 40 07/30/16 00:00 102 07/30/16 00:00 100.8 104 19 144/65 96 153/54 07/29/16 22:12 97 50 07/29/16 22:00 101 07/29/16 20:00 100 07/29/16 20:00 40 07/29/16 20:00 99.0 100 26 130/60 97 150/51 07/29/16 19:33 96 50 07/29/16 18:00 101 07/29/16 18:00 101 145/52 133/61 07/29/16 16:49 96 50 07/29/16 16:00 99.9 98 20 95 117/51 07/29/16 16:00 40 07/29/16 16:00 98 07/29/16 15:20 40 07/29/16 07/29/16 07/30/16 15:00 23:00 07:00 Intake Total 840 ml 406 ml 404 ml Output Total 3700 ml 525 ml 200 ml Balance -2860 ml -119 ml 204 ml Intake IV Total 550 ml 129 ml 170 ml Tube Feeding 290 ml 277 ml 234 ml Output Urine Total 200 ml 125 ml 200 ml Stool Total 500 ml 400 ml 0 ml Hemodialysis 3000 ml 0 ml . Laboratory Tests Test 07/30/16 03:20 White Blood Count 9.8 TH/MM3 Red Blood Count 2.21 MIL/MM3 Hemoglobin 6.9 GM/DL Hematocrit 19.7 % Mean Corpuscular Volume 89.0 FL Mean Corpuscular Hemoglobin 31.2 PG Mean Corpuscular Hemoglobin 35.1 % Concent Red Cell Distribution Width 13.9 % Platelet Count 111 TH/MM3 Mean Platelet Volume 10.0 FL Neutrophils (%) (Auto) 87.0 % Lymphocytes (%) (Auto) 7.3 % Monocytes (%) (Auto) 3.3 % Eosinophils (%) (Auto) 1.5 % Basophils (%) (Auto) 0.9 % Neutrophils # (Auto) 8.6 TH/MM3 Lymphocytes # (Auto) 0.7 TH/MM3 Monocytes # (Auto) 0.3 TH/MM3 Eosinophils # (Auto) 0.2 TH/MM3 Basophils # (Auto) 0.1 TH/MM3 CBC Comment DIFF FINAL Differential Comment Laboratory Tests Test 07/29/16 07/30/16 04:45 03:20 Sodium Level 136 MEQ/L 141 MEQ/L Potassium Level 3.3 MEQ/L 2.9 MEQ/L Chloride Level 102 MEQ/L 104 MEQ/L Carbon Dioxide Level 18.7 MEQ/L 25.6 MEQ/L Anion Gap 15 MEQ/L 11 MEQ/L Blood Urea Nitrogen 91 MG/DL 64 MG/DL Creatinine 4.13 MG/DL 3.84 MG/DL Estimat Glomerular Filtration 14 ML/MIN 16 ML/MIN Rate Random Glucose 336 MG/DL 139 MG/DL Calcium Level 7.4 MG/DL 7.2 MG/DL Protein Corrected Calcium 7.7 MG/DL 7.4 MG/DL Phosphorus Level 5.3 MG/DL Magnesium Level 2.0 MG/DL Total Bilirubin 0.5 MG/DL 0.5 MG/DL Aspartate Amino Transf 21 U/L 20 U/L (AST/SGOT) Alanine Aminotransferase 30 U/L 26 U/L (ALT/SGPT) Alkaline Phosphatase 110 U/L 87 U/L Total Protein 6.6 GM/DL 6.8 GM/DL Albumin 1.6 GM/DL 1.7 GM/DL Imaging Chest X-Ray 07/30/16 0600 Signed Impressions: Service Date/Time: Saturday, July 30, 2016 05:07 - CONCLUSION: 1. Interval increase in hazy opacity in the right lung. 2. Bilateral effusions are again noted with cardiomegaly and the findings are most characteristic of congestive heart failure. Alonzo Bradshaw MD Abdomen/Pelvis CT 07/30/16 0000 Signed Impressions: Service Date/Time: Saturday, July 30, 2016 07:57 - CONCLUSION: 1. No retroperitoneal hematoma. 2. Bibasilar pulmonary consolidations with small effusions. 3. Chronic pancreatitis. No acute inflammation observed. 4. 2 ventral hernias. 5. IVC filter. 6. 3.6 x 3.1 cm AAA. Omer Cheng Jr., MD Chest X-Ray 07/28/16 0600 Signed Impressions: Service Date/Time: Thursday, July 28, 2016 03:09 - CONCLUSION: No significant change. Hazy opacity remains in both lungs most consistent with congestive heart failure. Alonzo Bradshaw MD Last Impressions Chest X-Ray 07/28/16 06 Signed Impressions: Service Date/Time: Thursday, July 28, 2016 03:09 - CONCLUSION: No significant change. Hazy opacity remains in both lungs most consistent with congestive heart failure. Alonzo Bradshaw MD Abdomen X-Ray 07/24/16 0749 Signed Impressions: Service Date/Time: July 08:28 - CONCLUSION: Air-filled bowel loops centrally but no obstruction seen. Uli Atkins MD Renal Ultrasound 07/20/16 Signed Impressions: Service Date/Time: Wednesday, July 20, 2016 14:32 - CONCLUSION: 1. No acute findings. Renal ultrasound unremarkable. Bladder was not well-visualized. Jose Martin Valderrama MD Lower Extremity Ultrasound 07/20/16 Signed Impressions: Service Date/Time: Wednesday, July 20, 2016 14:39 - CONCLUSION: Negative exam with no evidence of deep venous thrombosis. Alonzo Bradshaw MD Head CT 07/20/16 Signed Impressions: Service Date/Time: Wednesday, July 20, 2016 18:21 - CONCLUSION: 1. No acute intracranial abnormalities. Mild mucosal thickening of the ethmoid air cells. Jose Martin Valderrama MD Chest CT 07/20/16 Signed Impressions: Service Date/Time: Wednesday, July 20, 2016 11:28 - CONCLUSION: 1. Chronic scarring in the lung bases left greater than right. 2. No focal consolidation. 3. Bilateral adrenal masses left greater than right most consistent with adenomas. 4. Nonspecific bowel gas pattern noted in the upper abdomen with air-fluid levels in the small bowel. Alonzo Bradshaw MD Abdomen/Pelvis CT 07/20/16 Signed Impressions: Service Date/Time: Wednesday, July 20, 2016 18:24 - CONCLUSION: 1. Lower abdominal ventral midline hernia containing loop of small bowel. Small bowel is mildly distended somewhat diffusely with fluid and air. Cannot exclude a low grade partial bowel obstruction in the area of herniation. 2. No abnormal fluid collections to suggest abscess. No free air or free fluid. 3. Basilar and dependent lung consolidation, left greater than right. Pneumonia could have this appearance. Small left effusion. 4. NG tip in stomach. Inferior vena cava filter present. Connelly catheter in bladder. Jose Martin Valderrama MD Physical Exam GENERAL: opens eyes, and intubated, NAD SKIN: Cool and dry. No generalized rash. HEAD: Atraumatic. Normocephalic. No temporal or scalp tenderness. EYES: [place] conjunctivae. No scleral icterus. No injection or drainage. ENT: Nose without bleeding, or purulent drainage. Endotracheal tube is in the mouth, has moist mucosa. Edentulous NECK: Trachea midline. No JVD or lymphadenopathy. Supple, nontender, no meningeal signs. CARDIOVASCULAR: Regular rate and rhythm without murmurs, gallops, or rubs. RESPIRATORY: Breath sounds equal bilaterally. Has scattered rales. Decreased breath sounds at the bases. GASTROINTESTINAL: Abdomen soft, globular, bowel sounds are present and normoactive. Mildly distended, not tender. No hepato-splenomegaly, or palpable masses. MUSCULOSKELETAL: Extremities without clubbing, cyanosis, or edema. . Feet warm. No joint effusion, or edema noted. NEUROLOGICAL: Sedated on the vent PSYCH: Unable to assess LINE: LIJ and RIJ lines with no evidence of infection : Connelly in place, urine looks clear Assessment & Plan Remarks IMPRESSION Group A Strep sepsis, with shock, MOSF, present on admission, source is not established - ?primary bacteremia Respiratory failure Renal failure, sp CVVHD Thrombocytopenia due to sepsis, no DIC - slowly improving Known DM, HTN, PVD, CAD Diarrhea, abx associated fevers, new RECOMMENDATION Monitor temps Continue IV Unasyn repeat C/S: BC, UC, sputum C diff Add Diflucan and lactinex If temps continue, consider line change Weaning per CCM Monitor progress D/W RN Spoke with D/W RN Ceci Alexis Dr, MD July 30, 2016 14:43
[2016-07-30] MEDS: FLUCONAZOLE 100 MG TAB PO SCH (14:57)
[2016-07-30 15:42] LABS: BLOOD, URINE MOD (NEG); GLUCOSE,URINE NEG (NEG); KETONE, URINE NEG (NEG); NITRITE,URINE NEG (NEG); PH, URINE 5.5 (5.0-8.5); URINE COLOR LIGHT-YELLOW (YELLW/STRAW)
[2016-07-30 15:50] LABS: BACTERIA, URINE RARE /hpf; COMMENT (UR) CATH-CULTURE IND; CULTURE IF INDICATED CATH CULTURE IND
[2016-07-30] MEDS: RESP: ALBUTEROL 2.5 MG/3 ML NEB (PRN) INH (16:09)
[2016-07-30 16:48] LABS: HEMATOCRIT 24.8 % (39.0-51.0); MEAN CELL VOLUME 87.8 FL (80.0-100.0); MEAN CORPUSCULAR HEMOGLOBIN 29.9 PG (27.0-34.0); PLATELET COUNT 124 TH/MM3 (150-450); RED BLOOD COUNT 2.83 MIL/MM3 (4.50-5.90); REVIEW FLAG FINAL; WHITE BLOOD COUNT 12.2 TH/MM3 (4.0-11.0)
[2016-07-30] MEDS: LACTOBACILLUS ACIDOPHILUS TAB PO SCH (17:23)
--- NOTE | 2016-07-30 17:45 | HHI.NPPN ---
Subjective History of Present Illness 71-year-old male with past medical history of diabetes mellitus, hypertension, ischemic heart disease, peripheral neuropathy, chronic kidney disease, history of deep vein thrombosis, hyperlipidemia was brought to the hospital because of generalized weakness, confusion and vomiting and diarrhea. I was called to see the patient because of elevated BUN and creatinine. The patient has history of acute kidney injury in the past and chronic kidney disease. His creatinine was around 1.2 to 1.4, this was in 2012. Additional Remarks Patient is on the vent. and on sedation, clinically same, was on CPAP for 2 hrs. in AM. Review of Systems General General Remarks Intubated and sedated. Objective Data Data 07/29/16 07/30/16 19:00 07:00 Intake Total 840 ml 810 ml Output Total 3700 ml 725 ml Balance -2860 ml 85 ml Intake IV Total 550 ml 299 ml Tube Feeding 290 ml 511 ml Output Urine Total 200 ml 325 ml Stool Total 500 ml 400 ml Hemodialysis 3000 ml 0 ml Vital Signs Date Time Temp Pulse Resp B/P Pulse Ox O2 Delivery O2 Flow Rate FiO2 07/30/16 16:00 89 07/30/16 16:00 40 07/30/16 16:00 98.7 89 16 97 145/55 07/30/16 15:59 98 40 07/30/16 14:00 88 07/30/16 12:00 40 07/30/16 12:00 98.8 88 19 97 120/46 07/30/16 12:00 88 07/30/16 11:30 40 07/30/16 11:10 96 50 07/30/16 10:00 113 07/30/16 08:45 50 07/30/16 08:45 40 07/30/16 08:45 100 50 07/30/16 08:25 100 50 07/30/16 08:25 100 100 07/30/16 08:00 92 07/30/16 08:00 97.3 92 28 100 136/48 07/30/16 08:00 40 07/30/16 06:57 100.5 97 18 136/50 99 07/30/16 06:40 100.8 97 21 133/48 99 07/30/16 06:00 97 07/30/16 06:00 98 135/48 139/65 07/30/16 04:03 98 50 07/30/16 04:00 40 07/30/16 04:00 100.4 94 17 134/63 98 144/47 07/30/16 04:00 93 07/30/16 02:00 95 07/30/16 01:02 97 50 07/30/16 00:00 40 07/30/16 00:00 102 07/30/16 00:00 100.8 104 19 144/65 96 153/54 07/29/16 22:12 97 50 07/29/16 22:00 101 07/29/16 20:00 100 07/29/16 20:00 40 07/29/16 20:00 99.0 100 26 130/60 97 150/51 07/29/16 19:33 96 50 07/29/16 18:00 101 07/29/16 18:00 101 145/52 133/61 -: 07/30/16 1616 07/30/16 1616 Microbiology 07/30/16 Gram Stain, Received Pending 07/30/16 Sputum Culture, Received Pending 07/30/16 Urine Culture, Received Pending 07/30/16 Aerobic Blood Culture, Received Pending 07/30/16 Anaerobic Blood Culture, Received Pending 07/30/16 Aerobic Blood Culture, Received Pending 07/30/16 Anaerobic Blood Culture, Received Pending Physical Exam General Appearance Remarks Intubated and sedated. Eyes Eye Exam: Pupils Equal Throat Throat Exam: Oral Mucosa [place] & Moist Neck Neck Exam: Neck Supple Pulmonary Resp Exam: Rhonchi, Decreased Bases, Diminished Breath Sounds, Poor Inspiratory Effort Cardiology CV Exam: Regular, Normal Sinus Rhythm Gastrointestinal/Abdomen GI Exam: Soft, Non-Tender, Bowel Sounds Present Extremeties Extremities Exam: Trace Edema Neurologic Neuro Exam: Unresponsive, Sedated Assessment/Plan Assessment Summary: ADALID/Acute Renal Failure Electrolyte Assessment: Metabolic Acidosis Problem List: (1) Diabetes mellitus with neuropathy (2) Leukocytosis (3) Peripheral vascular disease (4) Severe sepsis with acute organ dysfunction (5) History of DVT (deep vein thrombosis) (6) Hypoxia (7) Acidosis (8) Lactic acidosis Plan Patient has some improvement in the urine out put. BP is has improved off pressors. BC results noted, seen by ID. On Unasyn and Flagyl, ID following. Repeat BC negative. CPK also elevated, but improving. BP is improving, HD done yesterday. On low dose pressors. Was on CPAP, weaning as per CCM. K was low and replaced. Hgb. is better after transfusion. HD will be in AM. D/W the at bed side. Problem Qualifiers (1) Diabetes mellitus with neuropathy: Qualified Code: E11.40 - Type 2 diabetes mellitus with diabetic neuropathy, unspecified terminal system operator insulin use status (2) Leukocytosis: Qualified Code: D72.829 - Leukocytosis, unspecified type Frank Magana MD July 30, 2016 17:45
[2016-07-30 19:43] LABS: C. DIFF EPI 027 PRESUMPTIVE NEGATIVE (NEGATIVE); C. DIFF TOXIN PCR NEGATIVE (NEGATIVE)
[2016-07-31] VITALS (20 sets, daily range): BP systolic 140–170; BP diastolic 55–70; PULSE 78–97; RESP 19–25; TEMP 98.4–100.9; O2SAT 93–100
[2016-07-31] MEDS: METOCLOPRAMIDE HCL 10 MG/2 ML VIAL IV PUSH SCH ×4 (00:06→23:52)
[2016-07-31] MEDS: AMPICILLIN-SULBACTAM INJ 1,500 MG in SODIUM CHLORIDE 0.9% INJ 100 ML IV SCH ×2 (01:17→12:16)
[2016-07-31] MEDS: PROPOFOL 1000 MG/100 ML INJ 100 ML IV SCH (01:22)
[2016-07-31] MEDS: CHLORHEXIDINE GLUCONATE 2 % 1 PACK (2 CLOTHS) TOP SCH (04:00)
[2016-07-31 06:07] LABS: AUTOMATED NEUTROPHIL # 10.1 TH/MM3 (1.8-7.7); BASOPHIL # 0.1 TH/MM3 (0-0.2); BASOPHIL % 0.7 % (0.0-2.0); EOSINOPHIL # 0.2 TH/MM3 (0-0.4); HEMO FLAGS DIFF FINAL; LYMPH % 5.1 % (9.0-44.0); LYMPHOCYTE # 0.6 TH/MM3 (1.0-4.8); MEAN CELL VOLUME 87.7 FL (80.0-100.0); MEAN CORPUSCULAR HEMOGLOBIN 30.4 PG (27.0-34.0); MEAN CORPUSCULAR HGB CONC 34.6 % (32.0-36.0); MONO % 3.9 % (0.0-8.0); NEUT % 88.3 % (16.0-70.0); PLATELET COUNT 142 TH/MM3 (150-450); RED BLOOD COUNT 2.86 MIL/MM3 (4.50-5.90); RED CELL DISTRIBUTION WIDTH 14.8 % (11.6-17.2); WHITE BLOOD COUNT 11.5 TH/MM3 (4.0-11.0)
[2016-07-31] MEDS: INSULIN ASPART SUPPLEMENTAL SCALE SQ SCH ×3 (06:16→18:18)
[2016-07-31 06:27] LABS: POTASSIUM 3.4 MEQ/L (3.5-5.1); TOTAL BILIRUBIN ADULT 0.6 MG/DL (0.2-1.0)
[2016-07-31 06:31] LABS: CALCIUM-PROTEIN CORRECTED 6.9 MG/DL (8.5-10.1)
[2016-07-31] MEDS: HEPARIN SODIUM - IV 10,000 UNITS/10 ML VIAL OTHER PRN (08:26)
[2016-07-31] MEDS: GENTAMICIN SULFATE (DIALYSIS USE ONLY) 20 MG/2 ML VIAL OTHER PRN (08:26)
[2016-07-31] MEDS: SODIUM CHLOR 0.9% 1000 ML IV PRN (08:26)
[2016-07-31] MEDS: INSULIN DETEMIR 100 UNITS/ML VIAL SQ SCH ×2 (09:00→20:51)
[2016-07-31] MEDS: DOCUSATE SODIUM 100 MG CAP PO SCH ×2 (09:00→20:42)
[2016-07-31] MEDS: SODIUM CHLORIDE 0.9% FLUSH 10 ML FLUSH IVF SCH (09:00)
[2016-07-31] MEDS: SODIUM CHLORIDE 0.9% FLUSH 10 ML FLUSH IV FLUSH SCH ×2 (09:00→20:42)
[2016-07-31] MEDS: LACTOBACILLUS ACIDOPHILUS TAB PO SCH ×3 (09:00→16:37)
[2016-07-31] MEDS: SENNOSIDES SYRUP 8.8 MG/5 ML CUP OG-TUBE SCH (09:00)
[2016-07-31] MEDS: CHLORHEXIDINE 0.12% (ORAL KIT) 15 ML CUP MT SCH ×2 (10:48→20:42)
--- NOTE | 2016-07-31 11:18 | HHI.CCPN ---
Subjective Remarks/Hospital Course 71-year-old male. Date of admission 07/20/2016. Past records includes diabetes with neuropathy and nephropathy, hypertension, dyslipidemia, chronic pain syndrome, history of DVT/PE on chronic anticoagulation, peripheral vascular disease with history of AAA, and osteoporosis. Patient recently C [place] 07/06/16. Patient sick contacts would include neighbor with "vital illness. Patient is to [facility] today with acute onset of diarrhea, hypoglycemia and chills. Upon arrival, patient was noted be acutely hypoxic and required a nonrebreather mask. Patient denies pleuritic chest pain , abdominal pain but positive for nausea and diarrhea. CT chest revealed bilateral lower lobe scarring, bilateral adrenal adenomas a nonspecific bowel gas pattern. Chest x-ray revealed no significant findings. Lab work included a lactic acid elevated 7.7, white blood cell count 12,000 in acute kidney injury with a creatinine of 3.0. Baseline around 1.5-2. Troponin was slightly elevated 0.14. EKG is currently pending. Upon arrival to [facility], patient was extremely mottled with rates in the 40s. Patient was emergently intubated please see note and a left IJ central line was placed. CT of the head, abdomen and pelvis currently pending. 07/21 Patient is sedated with Diprivan and Fentanyl and intubated. On Levophed 22 mics, Vasopressin and bicarb drip. BC from 07/20: GPC all 4 bottles. 07/22 Patient remains sedated and intubated On Levophed 22 mics, vasopressin and bicarb drip. Awaiting to start CVVHD today 07/23: Remains sedated, orally intubated on mech ventilation. On Levophed 15 mics per minute and low-dose vasopressin for pressor support. On CRRT. 07/24: Remains sedated, orally intubated on mechanical ventilation. On Levophed 7 mics per minute and low-dose vasopressin for pressor support. CRRT was stopped at 1:30 AM due to Air in system and has now been resumed. 2 Amps of bicarbonate given for metabolic acidosis while CRRT held and bicarbonate drip was started back yesterday 07/25: Remains critically ill, on CVVH. Levoped 6 mics per minute. White count has normalized, making slight amount of urine. Showing some signs of progress 07/26: Remains sedated, orally intubated on mechanical ventilation. Remains on Levophed 3 mics per minute, vasopressin 0.03 mics per minute. CRRT continues. 07/27: Remains sedated, orally intubated on mechanical ventilation. Remains on Levophed 2 mics per minute, vasopressin 0.03 mics per minute. On CRRT. 07/28: Remains sedated, orally intubated on mechanical ventilation. Off Levophed. Remains on vasopressin. CRRT clotted off this morning and is on hold currently. Nephrology to decide regarding regular hemodialysis as patient is now off Levophed. 07/29: Sedated, arousable, orally intubated on mechanical ventilation. Off Levophed and vasopressin drips. To be initiated on hemodialysis today. Tolerating tube feeds. 07/30: Sedated, arousable, orally intubated on mechanical ventilation. Hemoglobin dropped to 6.9 this morning no evidence of melena or rectal bleeding noted. Stat CT abdomen pelvis did not reveal any evidence of retroperitoneal hematoma. Patient is maintaining his blood pressure and has not had any hypotension. 2 units PRBCs ordered this morning. 07/31: Sedated, arousable, orally intubated on mechanical ventilation. Underwent hemodialysis this morning. Objective Vital Signs Date Time Temp Pulse Resp B/P Pulse Ox O2 Delivery O2 Flow Rate FiO2 07/31/16 10:00 85 07/31/16 08:00 40 07/31/16 07:46 93 07/31/16 06:00 155/58 151/69 07/31/16 04:00 98.5 19 Intake and Output 07/30/16 07/30/16 07/31/16 08:00 16:00 00:00 Intake Total 404 ml 1095 ml 390 ml Output Total 200 ml 1025 ml 425 ml Balance 204 ml 70 ml -35 ml Result Diagram: 07/31/16 0550 07/31/16 0550 Imaging Last 24 hours Impressions Chest X-Ray 07/28/16 0600 Signed Impressions: Service Date/Time: Thursday, July 28, 2016 03:09 - CONCLUSION: No significant change. Hazy opacity remains in both lungs most consistent with congestive heart failure. Alonzo Bradshaw MD Last 24 hours Impressions Chest X-Ray 07/26/16 0600 Signed Impressions: Service Date/Time: Tuesday, July 26, 2016 04:56 - CONCLUSION: No significant change. Jovan Aldridge MD Last 48 hours Impressions Abdomen X-Ray 07/24/16 0749 Signed Impressions: Service Date/Time: July 08:28 - CONCLUSION: Air-filled bowel loops centrally but no obstruction seen. Uli Atkins MD Chest X-Ray 07/24/16 0600 Signed Impressions: Service Date/Time: July 05:36 - CONCLUSION: Unchanged bibasilar infiltrates. Omer Cheng Jr., MD Last Impressions Chest X-Ray 07/21/16 0000 Signed Impressions: Service Date/Time: Thursday, July 21, 2016 22:13 - CONCLUSION: Satisfactory central line positioning. Worsening aeration. [place] Guillermo MD Renal Ultrasound 07/20/16 0000 Signed Impressions: Service Date/Time: Wednesday, July 20, 2016 14:32 - CONCLUSION: 1. No acute findings. Renal ultrasound unremarkable. Bladder was not well-visualized. Jose Martin Valderrama MD Lower Extremity Ultrasound 07/20/16 0000 Signed Impressions: Service Date/Time: Wednesday, July 20, 2016 14:39 - CONCLUSION: Negative exam with no evidence of deep venous thrombosis. Alonzo Bradshaw MD Head CT 07/20/16 0000 Signed Impressions: Service Date/Time: Wednesday, July 20, 2016 18:21 - CONCLUSION: 1. No acute intracranial abnormalities. Mild mucosal thickening of the ethmoid air cells. Jose Martin Valderrama MD Chest CT 07/20/16 0000 Signed Impressions: Service Date/Time: Wednesday, July 20, 2016 11:28 - CONCLUSION: 1. Chronic scarring in the lung bases left greater than right. 2. No focal consolidation. 3. Bilateral adrenal masses left greater than right most consistent with adenomas. 4. Nonspecific bowel gas pattern noted in the upper abdomen with air-fluid levels in the small bowel. Alonzo Bradshaw MD Abdomen/Pelvis CT 07/20/16 0000 Signed Impressions: Service Date/Time: Wednesday, July 20, 2016 18:24 - CONCLUSION: 1. Lower abdominal ventral midline hernia containing loop of small bowel. Small bowel is mildly distended somewhat diffusely with fluid and air. Cannot exclude a low grade partial bowel obstruction in the area of herniation. 2. No abnormal fluid collections to suggest abscess. No free air or free fluid. 3. Basilar and dependent lung consolidation, left greater than right. Pneumonia could have this appearance. Small left effusion. 4. NG tip in stomach. Inferior vena cava filter present. Connelly catheter in bladder. Jose Martin Valderrama MD Objective Remarks Drips: Propofol/fentanyl. Flow Trac: SVV 3 GENERAL: Patient is 71 yo critically ill intubated and sedated. SKIN: Warm and dry. HEAD: Normocephalic. EYES: Pallor present. No scleral icterus. No injection or drainage. NECK: Supple, trachea midline. No JVD or lymphadenopathy. CARDIOVASCULAR: Regular rate and rhythm without murmurs, gallops, or rubs. RESPIRATORY: Orally intubated on mechanical ventilation, Breath sounds decreased bilaterally at bases. Scattered rhonchi, no wheezing. GASTROINTESTINAL: Abdomen soft, non-tender, nondistended. Bowel sounds sluggish Neuro: Sedated, intubated. Extremities: Warm bilaterally, Bilateral edema Line: Central Venous Catheter A/P Assessment and Plan Neuro/Psych: Peripheral neuropathy Chronic pain syndrome Patient is currently on propofol/fentanyl drips for sedation/analgesia while intubated. Ativan IV when necessary for sedation. Goal RASS -2 Daily sedation vacation 07/20 CT brain: No acute intracranial abnormalities. CV: Elevated troponin Hypertension Dyslipidemia Lactic acidosis Septic shock Peripheral vascular disease History of AAA Off Levophed/ vasopressin currently. Labetalol when necessary for SBP greater than 1 60 mmHg. Flotrac for hemodynamic monitoring. On Stress dose steroids- Hydrocortisone decreased to 50mg daily on 07/29 and stopped on 07/31 Continue with ASA daily Echo showed EF 35-40% Resp: Acute hypoxemic respiratory failure Tobaccoism Continue with vent support keep sat >92% Ventilator bundle Bronchodilator therapy every 4 hours with albuterol every 2 hours. PEEP decreased to +5 Daily C Pap trials CT chest 07/20 revealed left greater than right basilar scarring. Bilateral adrenal adenomas. No focal consolidation GI: Continue tube feeds- Nepro with goal rate 40ml/hr Reglan 5 mg IV every 8 hours Protonix for GI prophylaxis Colace/as needed Senokot for bowel regimen CT abdomen reviewed. Gen surgery- Dr Roman- no surgical interventions. : Strict intake output, monitor and replete electrolytes, follow BUN/creatinine. Started CRRT on 07/22, being followed by nephrology Dr. Magana. CRRT on hold since 07/28. Switched to hemodialysis on 07/29. Renal US: No acute findings Endo: Diabetes mellitus with nephropathy and neuropathy Bilateral adrenal adenoma Hyperglycemia Continue Levemir 20 units subcutaneously every 12 hourly and switch from medium to high dose sliding scale insulin on 07/29 for better glycemic control. Taper steroids. 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 HIT screen negative. Start heparin 5000 units subcutaneously every 12 hourly on 07/29, increased to 5000 units subcutaneously every 8 hourly on 07/31 Transfused 2 units PRBCs for drop in hemoglobin to 6.9 on 07/30. CT abdomen pelvis with no evidence of retroperitoneal hematoma. Follow H&H ID: Continue with abx per ID (Unasyn) Clindamycin stopped 07/29, vanco x 1 dose monitor for signs of infections - Pertinent cultures BC 07/20- GPC, Group A Beta strep Urine cx 07/20 : neg Strep pneumonia nad Legionella urinary Ag negative Follow up on Sputum cx, BC 07/21, 07/22- NGTD MSK: Osteoarthritis Holding vitamin D 1000 units by mouth daily. Access - Left IJ CVL placed 07/20, Art line placed 07/21 -Right IJ vascath placed 07/22 Prophylaxis - GI - Protonix - DVT - SCD/heparin SQ - Doppler US LE negative for DVT Palliative care is following Patient is critically ill with resp failure, renal failure, septic shock and multiorgan injury. Prognosis guarded. Updated patient's on 07/30 regarding current clinical condition and plan of care and she voiced understanding. I have also previously explained possible need for tracheostomy and PEG tube in about 2 weeks since getting intubated if patient is not extubatable at that time. 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 Time to perform other separately billable procedures was not included in the critical care time. Roman Hicks MD July 31, 2016 11:17
[2016-07-31] MEDS: ASPIRIN 81 MG CHEW TAB CHEW SCH (12:17)
[2016-07-31] MEDS: PANTOPRAZOLE SODIUM 40 MG VIAL IV SCH (12:17)
[2016-07-31] MEDS: FLUCONAZOLE 100 MG TAB PO SCH (12:17)
--- NOTE | 2016-07-31 12:56 | HHI.NPPN ---
Subjective History of Present Illness 71-year-old male with past medical history of diabetes mellitus, hypertension, ischemic heart disease, peripheral neuropathy, chronic kidney disease, history of deep vein thrombosis, hyperlipidemia was brought to the hospital because of generalized weakness, confusion and vomiting and diarrhea. I was called to see the patient because of elevated BUN and creatinine. The patient has history of acute kidney injury in the past and chronic kidney disease. His creatinine was around 1.2 to 1.4, this was in 2012. Additional Remarks Patient is on the vent. and on sedation, clinically same, was on CPAP for 2 hrs. in AM. Review of Systems General General Remarks Intubated and sedated. Objective Data Data 07/30/16 07/31/16 19:00 07:00 Intake Total 1095 ml 800 ml Output Total 1025 ml 575 ml Balance 70 ml 225 ml Intake IV Total 341 ml 257 ml Tube Feeding 254 ml 543 ml Packed Cells 500 ml Output Urine Total 225 ml 375 ml Stool Total 800 ml 200 ml Vital Signs Date Time Temp Pulse Resp B/P Pulse Ox O2 Delivery O2 Flow Rate FiO2 07/31/16 12:07 100 40 07/31/16 12:00 99.4 86 20 150/55 97 07/31/16 12:00 40 07/31/16 12:00 86 07/31/16 10:00 85 07/31/16 08:00 98.4 90 20 140/56 94 07/31/16 08:00 87 07/31/16 08:00 40 07/31/16 07:46 93 40 07/31/16 06:00 93 07/31/16 06:00 92 155/58 151/69 07/31/16 04:05 93 40 07/31/16 04:00 40 07/31/16 04:00 97 07/31/16 04:00 98.5 97 19 151/69 97 170/62 07/31/16 02:00 94 07/31/16 01:05 97 40 07/31/16 00:00 86 07/31/16 00:00 40 07/31/16 00:00 98.9 87 19 141/67 97 154/55 07/30/16 22:03 94 40 07/30/16 22:00 87 07/30/16 21:00 90 07/30/16 20:00 40 07/30/16 20:00 91 07/30/16 20:00 98.7 91 21 141/66 96 156/57 07/30/16 19:56 97 40 07/30/16 18:00 90 07/30/16 18:00 98 144/52 07/30/16 16:00 89 07/30/16 16:00 40 07/30/16 16:00 98.7 89 16 97 145/55 07/30/16 15:59 98 40 07/30/16 14:00 88 -: 07/31/16 0550 07/31/16 0550 Microbiology 07/30/16 Gram Stain - Final, Resulted 07/30/16 Sputum Culture - Preliminary, Resulted Gram Negative Thony 07/30/16 Urine Culture - Preliminary, Resulted NO GROWTH IN 24 HOURS. 07/30/16 Aerobic Blood Culture - Preliminary, Resulted NO GROWTH IN 1 DAY 07/30/16 Anaerobic Blood Culture - Preliminary, Resulted NO GROWTH IN 1 DAY 07/30/16 Aerobic Blood Culture - Preliminary, Resulted NO GROWTH IN 1 DAY 07/30/16 Anaerobic Blood Culture - Preliminary, Resulted NO GROWTH IN 1 DAY Physical Exam General Appearance Remarks Intubated and sedated. Eyes Eye Exam: Pupils Equal Throat Throat Exam: Oral Mucosa [place] & Moist Neck Neck Exam: Neck Supple Pulmonary Resp Exam: Rhonchi, Decreased Bases, Diminished Breath Sounds, Poor Inspiratory Effort Cardiology CV Exam: Regular, Normal Sinus Rhythm Gastrointestinal/Abdomen GI Exam: Soft, Non-Tender, Bowel Sounds Present Extremeties Extremities Exam: Trace Edema Neurologic Neuro Exam: Unresponsive, Sedated Assessment/Plan Assessment Summary: ADALID/Acute Renal Failure Electrolyte Assessment: Metabolic Acidosis Problem List: (1) Diabetes mellitus with neuropathy (2) Leukocytosis (3) Peripheral vascular disease (4) Severe sepsis with acute organ dysfunction (5) History of DVT (deep vein thrombosis) (6) Hypoxia (7) Acidosis (8) Lactic acidosis Plan Patient has some improvement in the urine out put. BP is has improved off pressors. BC results noted, seen by ID. On Unasyn and Flagyl, ID following. Repeat BC negative. CPK also elevated, but improving. BP is improving, HD done yesterday. On low dose pressors. Was on CPAP, weaning as per CCM. K was low and replaced. Hgb. is better after transfusion. HD will be in AM. D/W the at bed side. Problem Qualifiers (1) Diabetes mellitus with neuropathy: Qualified Code: E11.40 - Type 2 diabetes mellitus with diabetic neuropathy, unspecified tandem mill sticker insulin use status (2) Leukocytosis: Qualified Code: D72.829 - Leukocytosis, unspecified type Frank Magana MD July 31, 2016 12:56
--- NOTE | 2016-07-31 13:55 | HHI.IDPN ---
Subjective Subjective Remarks 71-year-old male admitted to the hospital for acute onset of diarrhea, chills and hypoglycemia. Patient apparently working in the yard July 18 and July 19. He was doing okay except for complaints on his lower extremity which is apparently chronic and related to his peripheral vascular disease. That night, the noted that the patient was breathing hard. She asked the patient and he stated that he is not short of breath. He has not complained of any sore throat, has not been congested, and has eaten without any problem. He has not had any urinary complaints. That night apparently the couldn't sleep, and around 4 :00 in the morning the patient woke up and stated that he wanted to go to the bathroom. Patient didn't make it, and had stool incontinence. He was noted to have some chills, and his blood sugars were low. He also had episode of vomiting. Patient was taken to the hospital, and since admission he is developed profound hypotension, and acidosis. He ended up getting intubated, and currently on Levophed and vasopressin. His white count is elevated, lactic acid elevated, and his creatinine is also quite elevated. His urine output has been low. Cultures done in the emergency room, are now reported as growing group A strep. Notes reviewed Temps better Had HD today To be tried on CPAP again this afternoon Off pressors Has a lot of liquid stool BC negative UC negative Sputum with GNR C diff negative Antibiotics Unasyn Diflucan Lines LIJ TLC RIJ vascath Past Medical History Reviewed Allergies: Coded Allergies: No Known Allergies (Verified , 07/20/16) Objective . Vital Signs Date Time Temp Pulse Resp B/P Pulse Ox O2 Delivery O2 Flow Rate FiO2 07/31/16 12:07 100 40 07/31/16 12:00 99.4 86 20 150/55 97 07/31/16 12:00 40 07/31/16 12:00 86 07/31/16 10:00 85 07/31/16 08:00 98.4 90 20 140/56 94 07/31/16 08:00 87 07/31/16 08:00 40 07/31/16 07:46 93 40 07/31/16 06:00 93 07/31/16 06:00 92 155/58 151/69 07/31/16 04:05 93 40 07/31/16 04:00 40 07/31/16 04:00 97 07/31/16 04:00 98.5 97 19 151/69 97 170/62 07/31/16 02:00 94 07/31/16 01:05 97 40 07/31/16 00:00 86 07/31/16 00:00 40 07/31/16 00:00 98.9 87 19 141/67 97 154/55 07/30/16 22:03 94 40 07/30/16 22:00 87 07/30/16 21:00 90 07/30/16 20:00 40 07/30/16 20:00 91 07/30/16 20:00 98.7 91 21 141/66 96 156/57 07/30/16 19:56 97 40 07/30/16 18:00 90 07/30/16 18:00 98 144/52 07/30/16 16:00 89 07/30/16 16:00 40 07/30/16 16:00 98.7 89 16 97 145/55 07/30/16 15:59 98 40 07/30/16 14:00 88 07/30/16 07/30/16 07/31/16 15:00 23:00 07:00 Intake Total 1095 ml 390 ml 410 ml Output Total 1025 ml 425 ml 150 ml Balance 70 ml -35 ml 260 ml Intake IV Total 341 ml 122 ml 135 ml Tube Feeding 254 ml 268 ml 275 ml Packed Cells 500 ml Output Urine Total 225 ml 225 ml 150 ml Stool Total 800 ml 200 ml 0 ml . Laboratory Tests Test 07/30/16 07/30/16 07/31/16 03:20 16:16 05:50 White Blood Count 9.8 TH/MM3 12.2 TH/MM3 11.5 TH/MM3 Red Blood Count 2.21 MIL/MM3 2.83 MIL/MM3 2.86 MIL/MM3 Hemoglobin 6.9 GM/DL 8.4 GM/DL 8.7 GM/DL Hematocrit 19.7 % 24.8 % 25.0 % Mean Corpuscular Volume 89.0 FL 87.8 FL 87.7 FL Mean Corpuscular Hemoglobin 31.2 PG 29.9 PG 30.4 PG Mean Corpuscular Hemoglobin 35.1 % 34.0 % 34.6 % Concent Red Cell Distribution Width 13.9 % 15.0 % 14.8 % Platelet Count 111 TH/MM3 124 TH/MM3 142 TH/MM3 Mean Platelet Volume 10.0 FL 9.8 FL 10.1 FL Neutrophils (%) (Auto) 87.0 % 88.3 % Lymphocytes (%) (Auto) 7.3 % 5.1 % Monocytes (%) (Auto) 3.3 % 3.9 % Eosinophils (%) (Auto) 1.5 % 2.0 % Basophils (%) (Auto) 0.9 % 0.7 % Neutrophils # (Auto) 8.6 TH/MM3 10.1 TH/MM3 Lymphocytes # (Auto) 0.7 TH/MM3 0.6 TH/MM3 Monocytes # (Auto) 0.3 TH/MM3 0.4 TH/MM3 Eosinophils # (Auto) 0.2 TH/MM3 0.2 TH/MM3 Basophils # (Auto) 0.1 TH/MM3 0.1 TH/MM3 CBC Comment DIFF FINAL DIFF FINAL Differential Comment Laboratory Tests Test 07/30/16 07/30/16 07/31/16 03:20 16:16 05:50 Sodium Level 141 MEQ/L 142 MEQ/L Potassium Level 2.9 MEQ/L 3.9 MEQ/L 3.4 MEQ/L Chloride Level 104 MEQ/L 105 MEQ/L Carbon Dioxide Level 25.6 MEQ/L 22.0 MEQ/L Anion Gap 11 MEQ/L 15 MEQ/L Blood Urea Nitrogen 64 MG/DL 80 MG/DL Creatinine 3.84 MG/DL 5.24 MG/DL Estimat Glomerular Filtration 16 ML/MIN 11 ML/MIN Rate Random Glucose 139 MG/DL 154 MG/DL Calcium Level 7.2 MG/DL 6.8 MG/DL Protein Corrected Calcium 7.4 MG/DL 6.9 MG/DL Total Bilirubin 0.5 MG/DL 0.6 MG/DL Aspartate Amino Transf 20 U/L 18 U/L (AST/SGOT) Alanine Aminotransferase 26 U/L 28 U/L (ALT/SGPT) Alkaline Phosphatase 87 U/L 84 U/L Total Protein 6.8 GM/DL 7.0 GM/DL Albumin 1.7 GM/DL 1.6 GM/DL Microbiology Date/Time Procedure Status Source Growth 07/30/16 14:00 Gram Stain - Final Resulted Sputum Endotracheal 07/30/16 14:00 Sputum Culture - Preliminary Resulted Gram Negative Thony 07/30/16 14:50 Urine Culture - Preliminary Resulted Urine Catheterized Urine NO GROWTH IN 24 HOURS. 07/30/16 17:10 Aerobic Blood Culture - Preliminary Resulted Blood Line NO GROWTH IN 1 DAY 07/30/16 17:10 Anaerobic Blood Culture - Preliminary Resulted Blood Line NO GROWTH IN 1 DAY 07/30/16 17:19 Aerobic Blood Culture - Preliminary Resulted Blood Peripheral NO GROWTH IN 1 DAY 07/30/16 17:19 Anaerobic Blood Culture - Preliminary Resulted Blood Peripheral NO GROWTH IN 1 DAY Imaging Chest X-Ray 07/30/16 0600 Signed Impressions: Service Date/Time: Saturday, July 30, 2016 05:07 - CONCLUSION: 1. Interval increase in hazy opacity in the right lung. 2. Bilateral effusions are again noted with cardiomegaly and the findings are most characteristic of congestive heart failure. Alonzo Bradshaw MD Abdomen/Pelvis CT 07/30/16 0000 Signed Impressions: Service Date/Time: Saturday, July 30, 2016 07:57 - CONCLUSION: 1. No retroperitoneal hematoma. 2. Bibasilar pulmonary consolidations with small effusions. 3. Chronic pancreatitis. No acute inflammation observed. 4. 2 ventral hernias. 5. IVC filter. 6. 3.6 x 3.1 cm AAA. Omer Cheng Jr., MD Chest X-Ray 07/28/16 0600 Signed Impressions: Service Date/Time: Thursday, July 28, 2016 03:09 - CONCLUSION: No significant change. Hazy opacity remains in both lungs most consistent with congestive heart failure. Alonzo Bradshaw MD Last Impressions Chest X-Ray 07/28/16 0600 Signed Impressions: Service Date/Time: Thursday, July 28, 2016 03:09 - CONCLUSION: No significant change. Hazy opacity remains in both lungs most consistent with congestive heart failure. Alonzo Bradshaw MD Abdomen X-Ray 07/24/16 0749 Signed Impressions: Service Date/Time: July 08:28 - CONCLUSION: Air-filled bowel loops centrally but no obstruction seen. Uli Atkins MD Renal Ultrasound 07/20/16 0000 Signed Impressions: Service Date/Time: Wednesday, July 20, 2016 14:32 - CONCLUSION: 1. No acute findings. Renal ultrasound unremarkable. Bladder was not well-visualized. Jose Martin Valderrama MD Lower Extremity Ultrasound 07/20/16 Signed Impressions: Service Date/Time: Wednesday, July 20, 2016 14:39 - CONCLUSION: Negative exam with no evidence of deep venous thrombosis. Alonzo Bradshaw MD Head CT 07/20/16 Signed Impressions: Service Date/Time: Wednesday, July 20, 2016 18:21 - CONCLUSION: 1. No acute intracranial abnormalities. Mild mucosal thickening of the ethmoid air cells. Jose Martin Valderrama MD Chest CT 07/20/16 Signed Impressions: Service Date/Time: Wednesday, July 20, 2016 11:28 - CONCLUSION: 1. Chronic scarring in the lung bases left greater than right. 2. No focal consolidation. 3. Bilateral adrenal masses left greater than right most consistent with adenomas. 4. Nonspecific bowel gas pattern noted in the upper abdomen with air-fluid levels in the small bowel. Alonzo Bradshaw MD Abdomen/Pelvis CT 07/20/16 Signed Impressions: Service Date/Time: Wednesday, July 20, 2016 18:24 - CONCLUSION: 1. Lower abdominal ventral midline hernia containing loop of small bowel. Small bowel is mildly distended somewhat diffusely with fluid and air. Cannot exclude a low grade partial bowel obstruction in the area of herniation. 2. No abnormal fluid collections to suggest abscess. No free air or free fluid. 3. Basilar and dependent lung consolidation, left greater than right. Pneumonia could have this appearance. Small left effusion. 4. NG tip in stomach. Inferior vena cava filter present. Connelly catheter in bladder. Jose Martin Valderrama MD Physical Exam GENERAL: opens eyes, and intubated, NAD SKIN: Cool and dry. No generalized rash. HEAD: Atraumatic. Normocephalic. No temporal or scalp tenderness. EYES: [place] conjunctivae. No scleral icterus. No injection or drainage. ENT: Nose without bleeding, or purulent drainage. Endotracheal tube is in the mouth, has moist mucosa. Edentulous NECK: Trachea midline. No JVD or lymphadenopathy. Supple, nontender, no meningeal signs. CARDIOVASCULAR: Regular rate and rhythm without murmurs, gallops, or rubs. RESPIRATORY: Breath sounds equal bilaterally. Has scattered rales. Decreased breath sounds at the bases. GASTROINTESTINAL: Abdomen soft, globular, bowel sounds are present and normoactive. Mildly distended, not tender. No hepato-splenomegaly, or palpable masses. MUSCULOSKELETAL: Extremities without clubbing, cyanosis, or edema. . Feet warm. No joint effusion, or edema noted. NEUROLOGICAL: Sedated on the vent PSYCH: Unable to assess LINE: LIJ and RIJ lines with no evidence of infection : Connelly in place, urine looks clear Assessment & Plan Remarks IMPRESSION Group A Strep sepsis, with shock, MOSF, present on admission, source is not established - ?primary bacteremia Respiratory failure Renal failure, sp CVVHD Thrombocytopenia due to sepsis, no DIC - slowly improving Known DM, HTN, PVD, CAD Diarrhea, abx associated Fevers, better - has GNR in sputum RECOMMENDATION Monitor temps Change IV Unasyn to Cefepime until GNR ID in sputum C/S Follow C/S Continue Diflucan and lactinex If temps continue, consider line change Weaning per [facility] Monitor progress D/W RN Spoke with D/W RN Ceci Alexis Dr, MD July 31, 2016 13:55
[2016-07-31] MEDS ORDERED: PILL SPLITTER OTHER PRN (15:00)
--- NOTE | 2016-07-31 16:06 | HHI.HCPN ---
Reason for visit a. To assist with evaluation and management of symptoms including: dyspnea; pain; encephalopathy b. To assist medical decision maker(s) with: better understanding of current medical conditions; weighing benefits/burdens of medical treatment options; making medical treatment decisions. . Subjective/Interval History INTERVAL NOTE Mr. Lemus remains in the SICU, sedated and intubated on mechanical ventilator. Patient tolerated CPAP trials for a few hours yesterday 07/30/16, will attempt CPAP trail again today. Had hemodialysis this morning, 4200 mL removed. Lab work 07/31/16: = WBC: 11.5, hemoglobin 8.7, hematocrit 25.0, platelets 142, neutrophils 88.3% = Sodium: 142, potassium 3.4, chloride 105, carbon dioxide 22.0, glucose 154, calcium 6.8 = BUN: 80, creatinine 5.24, GFR 11 = Total bilirubin: 0.6, AST 18, ALT 28, alkaline phosphatase 84 = Total protein: 7.0, albumin 1.6 Afebrile. HR 80-90; BPs 140-170/50-67; HR 80s-90s Status post transfusion with 2 units PRBCs for hemoglobin of 6.9 and hematocrit of 19.7 on 07/30/16. No evidence of melena or rectal bleeding was noted. A STAT CT abdomen/pelvis did not revealed no evidence of retroperitoneal hematoma. Patient is maintaining his blood pressure and has not had any hypotension. Follow-up chest x-ray on 07/30/16 showing interval increase in hazy opacities in the right lung; bilateral effusions are again noted with cardiomegaly, likely CHF . Advance Directives Living Will: Completed, but not made available Health Care Surrogate: Completed, but not made available Durable Power of Singer Songwriter: Never completed Advance Directive Specifics Date completed: will bring in the advance directive. Date of completion is unknown at this time. . Health Care Surrogate(s): will bring in a copy of the advance directive. She reports that she is listed as the designated health care surrogate. . Documented care wishes: will bring in a copy of the advance directive. At this point we do not have any written documentation of the patient's health care goals/preferences. . Objective Vital Signs Date Time Temp Pulse Resp B/P Pulse Ox O2 Delivery O2 Flow Rate FiO2 07/31/16 15:44 96 40 07/31/16 14:36 95 40 07/31/16 14:20 40 07/31/16 12:07 100 40 07/31/16 12:00 99.4 86 20 150/55 97 07/31/16 12:00 40 07/31/16 12:00 86 07/31/16 10:00 85 07/31/16 08:00 98.4 90 20 140/56 94 07/31/16 08:00 87 07/31/16 08:00 40 07/31/16 07:46 93 40 07/31/16 06:00 93 07/31/16 06:00 92 155/58 151/69 07/31/16 04:05 93 40 07/31/16 04:00 40 07/31/16 04:00 97 07/31/16 04:00 98.5 97 19 151/69 97 170/62 07/31/16 02:00 94 07/31/16 01:05 97 40 07/31/16 00:00 86 07/31/16 00:00 40 07/31/16 00:00 98.9 87 19 141/67 97 154/55 07/30/16 22:03 94 40 07/30/16 22:00 87 07/30/16 21:00 90 07/30/16 20:00 40 07/30/16 20:00 91 07/30/16 20:00 98.7 91 21 141/66 96 156/57 07/30/16 19:56 97 40 07/30/16 18:00 90 07/30/16 18:00 98 144/52 07/30/16 16:00 89 07/30/16 16:00 40 07/30/16 16:00 98.7 89 16 97 145/55 07/30/16 15:59 98 40 Intake & Output 07/31/16 07/31/16 07:00 19:00 Intake Total 800 ml Output Total 575 ml 4200 ml Balance 225 ml -4200 ml Intake IV Total 257 ml Tube Feeding 543 ml Output Urine Total 375 ml Stool Total 200 ml Hemodialysis 4200 ml . Physical Exam CONSTITUTIONAL/GENERAL: This is an overweight male sedated and intubated on mechanical ventilator, no longer requiring pressor support. TUBES/LINES/DRAINS: Orotracheal tube; orogastric tube; left internal jugular central line; vas-cath right internal jugular; peripheral IV; SCDs; Connelly catheter; warming blanket intermittent SKIN: No jaundice, rashes, or lesions. No wounds seen anteriorly. Skin temperature warm but not diaphoretic. EYES: Pupils equal and round. No scleral icterus. No injection or drainage. Fundi not examined. ENT: Unable to assess hearing. Nose without bleeding or purulent drainage. NECK: Trachea midline. CARDIOVASCULAR: Regular rhythm without murmurs, gallops, or rubs. No JVD. RESPIRATORY/CHEST: Orally intubated and sedated on mechanical ventilator. Breath sounds equal bilaterally but air movement diminished at bases, scattered rhonchi GASTROINTESTINAL: Abdomen soft, non-tender, slightly distended. GENITOURINARY: Without palpable bladder distension. Connelly catheter in place. MUSCULOSKELETAL: Extremities without clubbing, cyanosis, or edema. No mottling. NEUROLOGICAL: Sedated. PSYCHIATRIC: Unable to assess due to sedation.. . Diagnostic Tests Laboratory Laboratory Tests Test 07/29/16 07/29/16 07/30/16 07/30/16 04:45 08:55 03:20 04:50 Sodium Level 136 MEQ/L 141 MEQ/L (136-145) (136-145) Potassium Level 3.3 MEQ/L 2.9 MEQ/L (3.5-5.1) (3.5-5.1) Chloride Level 102 MEQ/L 104 MEQ/L (98-107) (98-107) Carbon Dioxide Level 18.7 MEQ/L 25.6 MEQ/L (21.0-32.0) (21.0-32.0) Anion Gap 15 MEQ/L (5-15) 11 MEQ/L (5-15) Blood Urea Nitrogen 91 MG/DL (7-18) 64 MG/DL (7-18) Creatinine 4.13 MG/DL 3.84 MG/DL (0.60-1.30) (0.60-1.30) Estimat Glomerular Filtration 14 ML/MIN (>89) 16 ML/MIN (>89) Rate Random Glucose 336 MG/DL 139 MG/DL (74-106) (74-106) Calcium Level 7.4 MG/DL 7.2 MG/DL (8.5-10.1) (8.5-10.1) Protein Corrected Calcium 7.7 MG/DL 7.4 MG/DL (8.5-10.1) (8.5-10.1) Phosphorus Level 5.3 MG/DL (2.5-4.9) Magnesium Level 2.0 MG/DL (1.5-2.5) Total Bilirubin 0.5 MG/DL 0.5 MG/DL (0.2-1.0) (0.2-1.0) Aspartate Amino Transf 21 U/L (15-37) 20 U/L (15-37) (AST/SGOT) Alanine Aminotransferase 30 U/L (12-78) 26 U/L (12-78) (ALT/SGPT) Alkaline Phosphatase 110 U/L 87 U/L (45-117) (45-117) Total Protein 6.6 GM/DL 6.8 GM/DL (6.4-8.2) (6.4-8.2) Albumin 1.6 GM/DL 1.7 GM/DL (3.4-5.0) (3.4-5.0) Hepatitis A IgM Antibody NEGATIVE (NEGATIVE) Hepatitis B Surface Antigen NEGATIVE (NEGATIVE) Hepatitis B Core IgM Antibody NEGATIVE (NEGATIVE) Hepatitis C Antibody NEGATIVE (NEGATIVE) White Blood Count 9.8 TH/MM3 (4.0-11.0) Red Blood Count 2.21 MIL/MM3 (4.50-5.90) Hemoglobin 6.9 GM/DL (13.0-17.0) Hematocrit 19.7 % (39.0-51.0) Mean Corpuscular Volume 89.0 FL (80.0-100.0) Mean Corpuscular Hemoglobin 31.2 PG (27.0-34.0) Mean Corpuscular Hemoglobin 35.1 % Concent (32.0-36.0) Red Cell Distribution Width 13.9 % (11.6-17.2) Platelet Count 111 TH/MM3 (150-450) Mean Platelet Volume 10.0 FL (7.0-11.0) Neutrophils (%) (Auto) 87.0 % (16.0-70.0) Lymphocytes (%) (Auto) 7.3 % (9.0-44.0) Monocytes (%) (Auto) 3.3 % (0.0-8.0) Eosinophils (%) (Auto) 1.5 % (0.0-4.0) Basophils (%) (Auto) 0.9 % (0.0-2.0) Neutrophils # (Auto) 8.6 TH/MM3 (1.8-7.7) Lymphocytes # (Auto) 0.7 TH/MM3 (1.0-4.8) Monocytes # (Auto) 0.3 TH/MM3 (0-0.9) Eosinophils # (Auto) 0.2 TH/MM3 (0-0.4) Basophils # (Auto) 0.1 TH/MM3 (0-0.2) CBC Comment DIFF FINAL Differential Comment Blood Type A POSITIVE Antibody Screen NEGATIVE Crossmatch Leukocyte-Reduced Red Blood Cells Blood Bank Comment Test 07/30/16 07/30/16 07/30/16 07/31/16 06:48 14:50 16:16 05:50 Blood Gas Puncture Site ART LINE Blood Gas Patient Temperature 98.6 Blood Gas HCO3 23 mmol/L (22-26) Blood Gas Base Excess -0.3 mmol/L (-2-2) Blood Gas Oxygen Saturation 94 % (90-100) Arterial Blood pH 7.45 (7.380-7.420) Arterial Blood Partial 34 mmHg (38-42) Pressure CO2 Arterial Blood Partial 96 mmHg Pressure O2 (61-120) Arterial Blood Oxygen Content 9.5 Vol % (12.0-20.0) Arterial Blood 1.8 % (0-4) Carboxyhemoglobin Arterial Blood Methemoglobin 1.6 % (0-2) Blood Gas Hemoglobin 7.1 G/DL (12.0-16.0) Oxygen Delivery Device VENTILATOR Blood Gas Ventilator Setting AC/16/550/PEEP5 Blood Gas Inspired Oxygen 50 % Urine Color LIGHT-YELLOW (YELLW/STRAW) Urine Turbidity CLEAR (CLEAR) Urine pH 5.5 (5.0-8.5) Urine Specific Ada 1.009 (1.002-1.035) Urine Protein 30 mg/dL (NEG-TRACE) Urine Glucose (UA) NEG mg/dL (NEG) Urine Ketones NEG mg/dL (NEG) Urine Occult Blood MOD (NEG) Urine Nitrite NEG (NEG) Urine Bilirubin NEG (NEG) Urine Urobilinogen LESS THAN 2.0 MG/DL (LESS THAN 2.0) Urine Leukocyte Esterase NEG (NEG) Urine RBC 7 /hpf (0-3) Urine WBC 3 /hpf (0-5) Urine Amorphous Sediment RARE Urine Bacteria RARE /hpf (NONE) Microscopic Urinalysis Comment CATH-CULTURE IND Stool C. difficile Toxin (PCR) NEGATIVE (NEGATIVE) Stl C. difficile Toxin PRESUMPTIVE Epiderm 027 NEGATIVE (NEGATIVE) White Blood Count 12.2 TH/MM3 11.5 TH/MM3 (4.0-11.0) (4.0-11.0) Red Blood Count 2.83 MIL/MM3 2.86 MIL/MM3 (4.50-5.90) (4.50-5.90) Hemoglobin 8.4 GM/DL 8.7 GM/DL (13.0-17.0) (13.0-17.0) Hematocrit 24.8 % 25.0 % (39.0-51.0) (39.0-51.0) Mean Corpuscular Volume 87.8 FL 87.7 FL (80.0-100.0) (80.0-100.0) Mean Corpuscular Hemoglobin 29.9 PG 30.4 PG (27.0-34.0) (27.0-34.0) Mean Corpuscular Hemoglobin 34.0 % 34.6 % Concent (32.0-36.0) (32.0-36.0) Red Cell Distribution Width 15.0 % 14.8 % (11.6-17.2) (11.6-17.2) Platelet Count 124 TH/MM3 142 TH/MM3 (150-450) (150-450) Mean Platelet Volume 9.8 FL 10.1 FL (7.0-11.0) (7.0-11.0) Potassium Level 3.9 MEQ/L 3.4 MEQ/L (3.5-5.1) (3.5-5.1) Neutrophils (%) (Auto) 88.3 % (16.0-70.0) Lymphocytes (%) (Auto) 5.1 % (9.0-44.0) Monocytes (%) (Auto) 3.9 % (0.0-8.0) Eosinophils (%) (Auto) 2.0 % (0.0-4.0) Basophils (%) (Auto) 0.7 % (0.0-2.0) Neutrophils # (Auto) 10.1 TH/MM3 (1.8-7.7) Lymphocytes # (Auto) 0.6 TH/MM3 (1.0-4.8) Monocytes # (Auto) 0.4 TH/MM3 (0-0.9) Eosinophils # (Auto) 0.2 TH/MM3 (0-0.4) Basophils # (Auto) 0.1 TH/MM3 (0-0.2) CBC Comment DIFF FINAL Differential Comment Sodium Level 142 MEQ/L (136-145) Chloride Level 105 MEQ/L (98-107) Carbon Dioxide Level 22.0 MEQ/L (21.0-32.0) Anion Gap 15 MEQ/L (5-15) Blood Urea Nitrogen 80 MG/DL (7-18) Creatinine 5.24 MG/DL (0.60-1.30) Estimat Glomerular Filtration 11 ML/MIN (>89) Rate Random Glucose 154 MG/DL (74-106) Calcium Level 6.8 MG/DL (8.5-10.1) Protein Corrected Calcium 6.9 MG/DL (8.5-10.1) Total Bilirubin 0.6 MG/DL (0.2-1.0) Aspartate Amino Transf 18 U/L (15-37) (AST/SGOT) Alanine Aminotransferase 28 U/L (12-78) (ALT/SGPT) Alkaline Phosphatase 84 U/L (45-117) Total Protein 7.0 GM/DL (6.4-8.2) Albumin 1.6 GM/DL (3.4-5.0) . Result Diagram: 07/31/16 0550 07/31/16 0550 Microbiology Microbiology Date/Time Procedure Status Source Growth 07/30/16 14:00 Gram Stain - Final Resulted Sputum Endotracheal 07/30/16 14:00 Sputum Culture - Preliminary Resulted Gram Negative Thony 07/30/16 14:50 Urine Culture - Preliminary Resulted Urine Catheterized Urine NO GROWTH IN 24 HOURS. 07/30/16 17:10 Aerobic Blood Culture - Preliminary Resulted Blood Line NO GROWTH IN 1 DAY 07/30/16 17:10 Anaerobic Blood Culture - Preliminary Resulted Blood Line NO GROWTH IN 1 DAY 07/30/16 17:19 Aerobic Blood Culture - Preliminary Resulted Blood Peripheral NO GROWTH IN 1 DAY 07/30/16 17:19 Anaerobic Blood Culture - Preliminary Resulted Blood Peripheral NO GROWTH IN 1 DAY . Imaging Last 72 hours Impressions Chest X-Ray 07/30/16 0600 Signed Impressions: Service Date/Time: Saturday, July 30, 2016 05:07 - CONCLUSION: 1. Interval increase in hazy opacity in the right lung. 2. Bilateral effusions are again noted with cardiomegaly and the findings are most characteristic of congestive heart failure. Alonzo Bradshaw MD Abdomen/Pelvis CT 07/30/16 0000 Signed Impressions: Service Date/Time: Saturday, July 30, 2016 07:57 - CONCLUSION: 1. No retroperitoneal hematoma. 2. Bibasilar pulmonary consolidations with small effusions. 3. Chronic pancreatitis. No acute inflammation observed. 4. 2 ventral hernias. 5. IVC filter. 6. 3.6 x 3.1 cm AAA. Omer Cheng Jr., MD . Procedures * Intubation/mechanical ventilation 07/20/16 * Left internal jugular central line placement 07/20/16 * Right jugular vas-cath placement * CRRT . Assessment and Plan Disease Oriented Problem List: (1) Severe sepsis with acute organ dysfunction Comment: Blood cx growing out Group A strep . (2) Respiratory failure (3) Lactic acidosis Comment: Improved -- but metabolic acidosis persists with elevated anion gap. . (4) Hypoxia (5) Peripheral vascular disease (6) Hypertension (7) Dyslipidemia (8) Chronic anticoagulation (9) Elevated troponin (10) History of DVT (deep vein thrombosis) (11) Acute kidney injury Comment: Now on CRRT. (12) Thrombocytopenia (13) Metabolic acidosis Comment: This has remained profound and persistent in spite of normalization of lactic acid. . Symptom Scale: (1) Pain 0-10 Scale: Unable to quantify Comment: Patient has chronic pain mostly in the lower extremities from a combination of peripheral vascular disease and diabetic neuropathy. He had been prescribed opiates in the past but normally takes no analgesics because he doesn't like the side effects. Additional sources of discomfort at this time would include prolonged bedbound status; orotracheal/orogastric intubations; Connelly catheter; vascular access lines. . (2) Dyspnea 0-10 Scale: Unable to quantify (dyspnea seems managed with mechanical ventilation.) Comment: Controlled with mechanical ventilation, tolerating CPAP trials today . (3) Encephalopathy 0-10 Scale: Unable to quantify Comment: Encephalopathy is most likely multifactorial and in large part due to the septic shock. Based on the history, it is unlikely that the duration of hypoglycemia or hypotension would've caused any type of permanent damage. There is no prior history of underlying dementia. . Pertinent Non-Medical Issues Psychosocial: Patient is well supported by his spouse and daughter who live locally, many friends who live locally, and 2 daughters who have flown in from [place] and [place]. Spiritual: Patient was raised in a [employer] home. Now identifies himself as a Restorationist. Worship and spirituality have not played a large part in his life of late. Legal: reports the patient has completed an advanced directive. She will bring a copy into scanned into the medical record. Ethical issues impacting care: Patient is currently incapacitated to make his own health care decisions. It remains uncertain if he will regain capacity to do so. . Important Contacts == Spouse (Alysia Lemus) [phone] == Daughter (Adenike) [phone] . Prognosis Though Mr Lemus is quite critically ill with septic shock and multiple organs being affected, it is also important to note that in spite of his underlying chronic illnesses , his functional status was reasonably good prior to becoming acutely ill so suddenly. Family, understandably, want to give him a chance to see if he is able to get through this acute period. He had a similar episode of severe illness approximately 10 years ago after being hospitalized with a ruptured appendix. Family has witnessed him being able to recover from that. The rapidity of progression to overwhelming sepsis is a poor prognostic sign. In addition, he will need ample fluids to fight shock and hypotension which can easily lead to congestive failure given his history. It is doubtful family will want to go forward with trach/PEG unless there were good reason to believe he would recover. . . Code Status: Full Code Plan == Code Status : FULL CODE == Decision Making: The patient is currently incapacitated to make his own health care decisions. will bring in the patient's completed advanced directive. She informs me that she is listed as the designated health care surrogate. If there is no advanced directive, would still be asked to serve as proxy decision-maker under the hierarchy of proxy's in the [place] statutes. == Goals of medical treatment: The patient's spouse and 3 of the daughters present want ongoing and full aggressive care for the time being. They are aware how ill the patient is and want to see if he is able to turn the corner. As noted above they would want all resuscitation attempts tried at this point in time. On the other hand, family reports that the patient would not want to be maintained on life support if there is no hope for meaningful recovery. is even uncertain if patient would ever agree to ongoing hemodialysis. If the patient continues to decline in spite of aggressive care were there is no obvious improvement in spite of aggressive care want to reconsider goals. == Pain: As noted above, patient has a number of different pain syndromes. Patient is off sedation today. PRN [place] and Morphine are available, but have not been utilized. Patient showing no signs or symptoms of nonverbal pain on exam. == Encephalopathy: Encephalopathy is most likely multifactorial and in large part due to the septic shock. Based on the history, it is unlikely that the duration of hypoglycemia or hypotension would've caused any type of permanent damage. There is no prior history of underlying dementia. == Dyspnea: Dyspnea currently being controlled with mechanical ventilation, tolerating CPAP trials today 07/29/16. No further recommendations at this time. == is bringing in a copy of the patient's advanced directive for us to scan into the electronic medical record. Has not arrived yet. Have asked nursing staff to request this as well. == Palliative care will continue to follow to assist with symptom management and to further clarify goals of medical treatment as the clinical course evolves. . Attestation To help prompt me to consider important information that might be impacting today's encounter and assessment, information from prior notes written by myself or my colleagues may have been "brought forward" into today's note. My signature on this note, however, is an attestation that I personally performed the exam, history, and/or decision-making noted today, and, unless otherwise indicated, the interactions with patient, family, and staff as well as the review of records all occurred today. I also attest that the listed assessment and stated plan reflect my best clinical judgment today based on the combination of historical information, prior notes, and today's exam/ interactions. When time spent is documented, it refers only to time spent today by the signer, or if indicated, combined time spent today by collaborating physician/nurse practitioner. . Kandy Contreras July 31, 2016 16:06
[2016-07-31] MEDS: METOPROLOL TARTRATE 25 MG TAB OG-TUBE SCH ×2 (16:37→22:00)
[2016-07-31] MEDS: ACETAMINOPHEN/HYDROcodone 325 MG/5 MG TAB PO PRN (16:38)
[2016-07-31] MEDS: HEPARIN SODIUM - SQ 10,000 UNITS/ML VIAL SQ SCH ×2 (16:38→20:52)
[2016-07-31] MEDS: CEFEPIME INJ 1,000 MG in SODIUM CHLORIDE 0.9% INJ 100 ML IV SCH (16:38)
[2016-07-31] MEDS: fentaNYL DRIP 250 ML IV SCH (23:52)
[2016-08-01] VITALS (19 sets, daily range): BP systolic 126–164; BP diastolic 44–61; PULSE 75–102; RESP 17–31; TEMP 98.9–99.6; O2SAT 95–100
[2016-08-01] MEDS: PROPOFOL 1000 MG/100 ML INJ 100 ML IV SCH (01:28)
[2016-08-01] MEDS: INSULIN ASPART SUPPLEMENTAL SCALE SQ SCH ×5 (01:51→23:47)
[2016-08-01] MEDS: CHLORHEXIDINE GLUCONATE 2 % 1 PACK (2 CLOTHS) TOP SCH (04:00)
[2016-08-01] MEDS: HEPARIN SODIUM - SQ 10,000 UNITS/ML VIAL SQ SCH (06:58)
[2016-08-01] MEDS: METOPROLOL TARTRATE 25 MG TAB OG-TUBE SCH ×3 (06:58→21:34)
[2016-08-01 07:12] LABS: AUTOMATED NEUTROPHIL # 9.4 TH/MM3 (1.8-7.7); BASOPHIL # 0.1 TH/MM3 (0-0.2); BASOPHIL % 0.7 % (0.0-2.0); EOSINOPHIL # 0.2 TH/MM3 (0-0.4); EOSINOPHIL % 2.2 % (0.0-4.0); HEMATOCRIT 25.8 % (39.0-51.0); HEMO FLAGS DIFF FINAL; LYMPH % 6.6 % (9.0-44.0); LYMPHOCYTE # 0.7 TH/MM3 (1.0-4.8); MEAN CELL VOLUME 88.8 FL (80.0-100.0); MEAN CORPUSCULAR HGB CONC 33.8 % (32.0-36.0); MONO % 3.6 % (0.0-8.0); NEUT % 86.9 % (16.0-70.0); PLATELET COUNT 172 TH/MM3 (150-450); RED BLOOD COUNT 2.91 MIL/MM3 (4.50-5.90); RED CELL DISTRIBUTION WIDTH 15.2 % (11.6-17.2); WHITE BLOOD COUNT 10.8 TH/MM3 (4.0-11.0)
[2016-08-01 07:30] LABS: BICARBONATE 25.8 MEQ/L (21.0-32.0); POTASSIUM 3.3 MEQ/L (3.5-5.1)
[2016-08-01] MEDS: CHLORHEXIDINE 0.12% (ORAL KIT) 15 ML CUP MT SCH ×2 (08:00→20:00)
[2016-08-01] MEDS: SODIUM CHLORIDE 0.9% FLUSH 10 ML FLUSH IV FLUSH SCH ×2 (08:00→20:47)
[2016-08-01 08:26] LABS: CALCIUM-PROTEIN CORRECTED 7.2 MG/DL (8.5-10.1)
[2016-08-01] MEDS: METOCLOPRAMIDE HCL 10 MG/2 ML VIAL IV PUSH SCH ×2 (08:40→17:00)
[2016-08-01] MEDS: FLUCONAZOLE 100 MG TAB PO SCH (08:41)
[2016-08-01] MEDS: LACTOBACILLUS ACIDOPHILUS TAB PO SCH ×3 (08:41→18:34)
[2016-08-01] MEDS: PANTOPRAZOLE SODIUM 40 MG VIAL IV SCH (08:42)
[2016-08-01] MEDS: ASPIRIN 81 MG CHEW TAB CHEW SCH (08:42)
[2016-08-01] MEDS: ACETAMINOPHEN/HYDROcodone 325 MG/5 MG TAB PO PRN ×3 (08:44→23:46)
[2016-08-01] MEDS: LABETALOL HCL 100 MG/20 ML VIAL IV PRN (08:50)
[2016-08-01] MEDS: SENNOSIDES SYRUP 8.8 MG/5 ML CUP OG-TUBE SCH (09:00)
[2016-08-01] MEDS: DOCUSATE SODIUM 100 MG CAP PO SCH ×2 (09:00→20:36)
[2016-08-01] MEDS: SODIUM CHLORIDE 0.9% FLUSH 10 ML FLUSH IVF SCH (09:00)
[2016-08-01] MEDS: INSULIN DETEMIR 100 UNITS/ML VIAL SQ SCH ×2 (09:02→21:00)
--- NOTE | 2016-08-01 10:07 | HHI.CCPN ---
Subjective Remarks/Hospital Course 71-year-old male. Date of admission 07/20/2016. Past records includes diabetes with neuropathy and nephropathy, hypertension, dyslipidemia, chronic pain syndrome, history of DVT/PE on chronic anticoagulation, peripheral vascular disease with history of AAA, and osteoporosis. Patient recently C [place] 07/06/16. Patient sick contacts would include neighbor with "vital illness. Patient is to [facility] today with acute onset of diarrhea, hypoglycemia and chills. Upon arrival, patient was noted be acutely hypoxic and required a nonrebreather mask. Patient denies pleuritic chest pain , abdominal pain but positive for nausea and diarrhea. CT chest revealed bilateral lower lobe scarring, bilateral adrenal adenomas a nonspecific bowel gas pattern. Chest x-ray revealed no significant findings. Lab work included a lactic acid elevated 7.7, white blood cell count 12,000 in acute kidney injury with a creatinine of 3.0. Baseline around 1.5-2. Troponin was slightly elevated 0.14. EKG is currently pending. Upon arrival to [facility], patient was extremely mottled with rates in the 40s. Patient was emergently intubated please see note and a left IJ central line was placed. CT of the head, abdomen and pelvis currently pending. 07/21 Patient is sedated with Diprivan and Fentanyl and intubated. On Levophed 22 mics, Vasopressin and bicarb drip. BC from 07/20: GPC all 4 bottles. 07/22 Patient remains sedated and intubated On Levophed 22 mics, vasopressin and bicarb drip. Awaiting to start CVVHD today 07/23: Remains sedated, orally intubated on mech ventilation. On Levophed 15 mics per minute and low-dose vasopressin for pressor support. On CRRT. 07/24: Remains sedated, orally intubated on mechanical ventilation. On Levophed 7 mics per minute and low-dose vasopressin for pressor support. CRRT was stopped at 1:30 AM due to Air in system and has now been resumed. 2 Amps of bicarbonate given for metabolic acidosis while CRRT held and bicarbonate drip was started back yesterday 07/25: Remains critically ill, on CVVH. Levoped 6 mics per minute. White count has normalized, making slight amount of urine. Showing some signs of progress 07/26: Remains sedated, orally intubated on mechanical ventilation. Remains on Levophed 3 mics per minute, vasopressin 0.03 mics per minute. CRRT continues. 07/27: Remains sedated, orally intubated on mechanical ventilation. Remains on Levophed 2 mics per minute, vasopressin 0.03 mics per minute. On CRRT. 07/28: Remains sedated, orally intubated on mechanical ventilation. Off Levophed. Remains on vasopressin. CRRT clotted off this morning and is on hold currently. Nephrology to decide regarding regular hemodialysis as patient is now off Levophed. 07/29: Sedated, arousable, orally intubated on mechanical ventilation. Off Levophed and vasopressin drips. To be initiated on hemodialysis today. Tolerating tube feeds. 07/30: Sedated, arousable, orally intubated on mechanical ventilation. Hemoglobin dropped to 6.9 this morning no evidence of melena or rectal bleeding noted. Stat CT abdomen pelvis did not reveal any evidence of retroperitoneal hematoma. Patient is maintaining his blood pressure and has not had any hypotension. 2 units PRBCs ordered this morning. 07/31: Sedated, arousable, orally intubated on mechanical ventilation. Underwent hemodialysis this morning. 08/01: Arousable off sedation, weakly grasps on command and wiggles toes. Remains orally intubated on mechanical ventilation. Tolerating tube feeds. Objective Vital Signs Date Time Temp Pulse Resp B/P Pulse Ox O2 Delivery O2 Flow Rate FiO2 08/01/16 08:57 40 08/01/16 08:55 97 08/01/16 06:00 85 08/01/16 06:00 149/49 137/57 08/01/16 04:00 99.4 19 Intake and Output 07/31/16 07/31/16 08/01/16 08:00 16:00 00:00 Intake Total 410 ml 562 ml 570 ml Output Total 150 ml 5175 ml 325 ml Balance 260 ml -4613 ml 245 ml Result Diagram: 08/01/16 0642 08/01/16 0642 Other Results Microbiology Date/Time Procedure Status Source Growth 07/30/16 14:50 Urine Culture - Final Complete Urine Catheterized Urine NO GROWTH IN 48 HOURS. Imaging Last 24 hours Impressions Chest X-Ray 07/28/16 0600 Signed Impressions: Service Date/Time: Thursday, July 28, 2016 03:09 - CONCLUSION: No significant change. Hazy opacity remains in both lungs most consistent with congestive heart failure. Alonzo Bradshaw MD Last 24 hours Impressions Chest X-Ray 07/26/16 0600 Signed Impressions: Service Date/Time: Tuesday, July 26, 2016 04:56 - CONCLUSION: No significant change. Jovan Aldridge MD Last 48 hours Impressions Abdomen X-Ray 07/24/16 0749 Signed Impressions: Service Date/Time: July 08:28 - CONCLUSION: Air-filled bowel loops centrally but no obstruction seen. Uli Atkins MD Chest X-Ray 07/24/16 0600 Signed Impressions: Service Date/Time: July 05:36 - CONCLUSION: Unchanged bibasilar infiltrates. Omer Cheng Jr., MD Last Impressions Chest X-Ray 07/21/16 0000 Signed Impressions: Service Date/Time: Thursday, July 21, 2016 22:13 - CONCLUSION: Satisfactory central line positioning. Worsening aeration. [place] Guillermo MD Renal Ultrasound 07/20/16 0000 Signed Impressions: Service Date/Time: Wednesday, July 20, 2016 14:32 - CONCLUSION: 1. No acute findings. Renal ultrasound unremarkable. Bladder was not well-visualized. Jose Martin Valderrama MD Lower Extremity Ultrasound 07/20/16 Signed Impressions: Service Date/Time: Wednesday, July 20, 2016 14:39 - CONCLUSION: Negative exam with no evidence of deep venous thrombosis. Alonzo Bradshaw MD Head CT 07/20/16 Signed Impressions: Service Date/Time: Wednesday, July 20, 2016 18:21 - CONCLUSION: 1. No acute intracranial abnormalities. Mild mucosal thickening of the ethmoid air cells. Jose Martin Valderrama MD Chest CT 07/20/16 Signed Impressions: Service Date/Time: Wednesday, July 20, 2016 11:28 - CONCLUSION: 1. Chronic scarring in the lung bases left greater than right. 2. No focal consolidation. 3. Bilateral adrenal masses left greater than right most consistent with adenomas. 4. Nonspecific bowel gas pattern noted in the upper abdomen with air-fluid levels in the small bowel. Alonzo Bradshaw MD Abdomen/Pelvis CT 5/7/17 0000 Signed Impressions: Service Date/Time: Wednesday, July 20, 2016 18:24 - CONCLUSION: 1. Lower abdominal ventral midline hernia containing loop of small bowel. Small bowel is mildly distended somewhat diffusely with fluid and air. Cannot exclude a low grade partial bowel obstruction in the area of herniation. 2. No abnormal fluid collections to suggest abscess. No free air or free fluid. 3. Basilar and dependent lung consolidation, left greater than right. Pneumonia could have this appearance. Small left effusion. 4. NG tip in stomach. Inferior vena cava filter present. Connelly catheter in bladder. Jose Martin Valderrama MD Objective Remarks Drips: Propofol/fentanyl. GENERAL: Patient is 71 yo elderly male, intubated and sedated. SKIN: Warm and dry. HEAD: Normocephalic. EYES: Pallor present. No scleral icterus. No injection or drainage. NECK: Supple, trachea midline. No JVD or lymphadenopathy. CARDIOVASCULAR: Regular rate and rhythm without murmurs, gallops, or rubs. RESPIRATORY: Orally intubated on mechanical ventilation, Breath sounds decreased bilaterally at bases. Scattered rhonchi, no wheezing. GASTROINTESTINAL: Abdomen soft, non-tender, nondistended. Bowel sounds sluggish Neuro: Sedated, arousable, intubated. Moves both upper extremities weakly and wiggles toes bilaterally. Extremities: Warm bilaterally, Bilateral edema Urinary Catheter: Yes Assessment to: Continue Line: Central Venous Catheter A/P Assessment and Plan Neuro/Psych: Peripheral neuropathy Chronic pain syndrome Patient is currently on propofol/fentanyl drips for sedation/analgesia while intubated. Ativan IV when necessary for sedation. Goal RASS -2 Daily sedation vacation 07/20 CT brain: No acute intracranial abnormalities. CV: Elevated troponin Hypertension Dyslipidemia Lactic acidosis Septic shock Peripheral vascular disease History of AAA Off Levophed/ vasopressin currently. Labetalol when necessary for SBP greater than 160 mmHg. started Lopressor 12.5 mg via OG tube every 8 hourly on 07/31. Flotrac for hemodynamic monitoring. Off Stress dose steroids- Hydrocortisone decreased to 50mg daily on 07/29 and stopped on 07/31 Continue with ASA daily Echo showed EF 35-40% Resp: Acute hypoxemic respiratory failure Tobaccoism Continue with vent support keep sat >92% Ventilator bundle Bronchodilator therapy every 4 hours with albuterol every 2 hours. PEEP +5 Daily C Pap trials CT chest 07/20 revealed left greater than right basilar scarring. Bilateral adrenal adenomas. No focal consolidation GI: Continue tube feeds- Nepro with goal rate 40ml/hr Reglan 5 mg IV every 8 hours Protonix for GI prophylaxis Colace/as needed Senokot for bowel regimen CT abdomen reviewed. Gen surgery- Dr Roman- no surgical interventions. : Strict intake output, monitor and replete electrolytes, follow BUN/creatinine. Started CRRT on 07/22, being followed by nephrology Dr. Magana. CRRT on hold since 07/28. Switched to hemodialysis on 07/29. Renal US: No acute findings Endo: Diabetes mellitus with nephropathy and neuropathy Bilateral adrenal adenoma Hyperglycemia Decreased Levemir to 120 units subcutaneously every 12 hourly on 07/31. On high dose sliding scale insulin on 07/29 for better glycemic control. Off steroids. 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 HIT screen negative. Platelets have normalized. Start heparin 5000 units subcutaneously every 12 hourly on 07/29, increased to 5000 units subcutaneously every 8 hourly on 07/31. Transfused 2 units PRBCs for drop in hemoglobin to 6.9 on 07/30. CT abdomen pelvis with no evidence of retroperitoneal hematoma. Most likely secondary to blood loss with CRRT regarding multiple times. Maintaining H&H. Will advance to full anticoagulation with heparin GTT on 08/01 ID: Continue with abx per ID - Unasyn switched to cefepime on 07/31 per ID due to gram-negative laila in sputum. Clindamycin stopped 07/29, vanco x 1 dose on admission. Pertinent cultures BC 07/20- GPC, Group A Beta strep Urine cx 07/20 : neg Strep pneumonia nad Legionella urinary Ag negative Follow up on Sputum cx, BC 07/21, 07/22- NGTD MSK: Osteoarthritis Holding vitamin D 1000 units by mouth daily. Access - Left IJ CVL placed 07/20, Art line placed 07/21 -Right IJ vascath placed 07/22 Prophylaxis - GI - Protonix - DVT - SCD/heparin SQ. Starting Heparin gtt 08/01 for full anticoagulation. - Doppler US LE negative for DVT Palliative care is following Patient is critically ill with resp failure, renal failure, septic shock and multiorgan injury. Prognosis guarded. Updated patient's on 07/31 and 08/01 regarding current clinical condition and plan of care and she voiced understanding. I have also previously explained possible need for tracheostomy and PEG tube in about 2 weeks since getting intubated if patient is not extubatable at that time. 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 Time to perform other separately billable procedures was not included in the critical care time. Roman Hicks MD August 01, 2016 10:07
[2016-08-01] MEDS ORDERED: METOPROLOL TARTRATE 25 MG TAB PO ONE (10:15)
[2016-08-01] MEDS ORDERED: niCARdipine INJ 50 MG in SODIUM CHLOR 0.9% 250 ML INJ 250 ML IV SCH (11:30)
[2016-08-01] MEDS ORDERED: SODIUM CHLOR 0.9% IV SCH (12:30)
[2016-08-01] MEDS ORDERED: NICARDIPINE IV SCH (12:30)
[2016-08-01] MEDS: niCARdipine INJ 50 MG in SODIUM CHLOR 0.9% 250 ML INJ 230 ML IV SCH ×2 (12:45→18:49)
[2016-08-01] MEDS: CEFEPIME INJ 1,000 MG in SODIUM CHLORIDE 0.9% INJ 100 ML IV SCH (14:25)
[2016-08-01] MEDS: HEPARIN-D5W INJ 250 ML IV SCH ×2 (14:51→22:12)
--- NOTE | 2016-08-01 15:41 | HHI.IDPN ---
Subjective Subjective Remarks 71-year-old male admitted to the hospital for acute onset of diarrhea, chills and hypoglycemia. Patient apparently working in the yard July 18 and July 19. He was doing okay except for complaints on his lower extremity which is apparently chronic and related to his peripheral vascular disease. That night, the noted that the patient was breathing hard. She asked the patient and he stated that he is not short of breath. He has not complained of any sore throat, has not been congested, and has eaten without any problem. He has not had any urinary complaints. That night apparently the couldn't sleep, and around 4 :00 in the morning the patient woke up and stated that he wanted to go to the bathroom. Patient didn't make it, and had stool incontinence. He was noted to have some chills, and his blood sugars were low. He also had episode of vomiting. Patient was taken to the hospital, and since admission he is developed profound hypotension, and acidosis. He ended up getting intubated, and currently on Levophed and vasopressin. His white count is elevated, lactic acid elevated, and his creatinine is also quite elevated. His urine output has been low. Cultures done in the emergency room, are now reported as growing group A strep. Notes reviewed D/W RN Has been off sedation Awake and following commands Has been on CPAP since this morning Low grade temsp yesterday, better today BP good Julian TF BC negative UC negative Sputum with PSAE C diff negative Antibiotics Cefepime Diflucan Lines LIJ TLC RIJ vascath Past Medical History Reviewed Allergies: Coded Allergies: No Known Allergies (Verified , 07/20/16) Objective . Vital Signs Date Time Temp Pulse Resp B/P Pulse Ox O2 Delivery O2 Flow Rate FiO2 08/01/16 14:44 95 40 08/01/16 11:43 98 40 08/01/16 11:14 26 08/01/16 10:00 93 08/01/16 08:57 40 08/01/16 08:55 97 40 08/01/16 08:00 40 08/01/16 08:00 85 08/01/16 08:00 99.1 85 17 147/44 97 08/01/16 07:35 97 40 08/01/16 06:00 85 08/01/16 06:00 95 149/49 137/57 08/01/16 04:00 99.4 75 19 129/61 97 141/46 08/01/16 04:00 40 08/01/16 04:00 84 08/01/16 03:03 100 40 08/01/16 02:00 78 08/01/16 00:00 99.5 84 18 126/59 97 130/47 08/01/16 00:00 84 08/01/16 00:00 40 07/31/16 22:00 78 07/31/16 21:57 97 40 07/31/16 20:00 100.0 92 23 148/70 97 146/55 07/31/16 20:00 40 07/31/16 20:00 92 07/31/16 19:22 97 40 07/31/16 18:00 95 145/55 07/31/16 18:00 94 07/31/16 16:00 100.9 95 25 162/63 97 07/31/16 16:00 40 07/31/16 16:00 95 07/31/16 15:44 96 40 07/31/16 07/31/16 08/01/16 15:00 23:00 07:00 Intake Total 562 ml 570 ml 580 ml Output Total 5175 ml 325 ml 100 ml Balance -4613 ml 245 ml 480 ml Intake IV Total 291 ml 301 ml 272 ml Tube Feeding 271 ml 269 ml 248 ml Other 60 ml Output Urine Total 175 ml 125 ml 100 ml Stool Total 800 ml 200 ml 0 ml Hemodialysis 4200 ml . Laboratory Tests Test 07/30/16 07/31/16 08/01/16 16:16 05:50 06:42 White Blood Count 12.2 TH/MM3 11.5 TH/MM3 10.8 TH/MM3 Red Blood Count 2.83 MIL/MM3 2.86 MIL/MM3 2.91 MIL/MM3 Hemoglobin 8.4 GM/DL 8.7 GM/DL 8.7 GM/DL Hematocrit 24.8 % 25.0 % 25.8 % Mean Corpuscular Volume 87.8 FL 87.7 FL 88.8 FL Mean Corpuscular Hemoglobin 29.9 PG 30.4 PG 30.0 PG Mean Corpuscular Hemoglobin 34.0 % 34.6 % 33.8 % Concent Red Cell Distribution Width 15.0 % 14.8 % 15.2 % Platelet Count 124 TH/MM3 142 TH/MM3 172 TH/MM3 Mean Platelet Volume 9.8 FL 10.1 FL 9.8 FL Neutrophils (%) (Auto) 88.3 % 86.9 % Lymphocytes (%) (Auto) 5.1 % 6.6 % Monocytes (%) (Auto) 3.9 % 3.6 % Eosinophils (%) (Auto) 2.0 % 2.2 % Basophils (%) (Auto) 0.7 % 0.7 % Neutrophils # (Auto) 10.1 TH/MM3 9.4 TH/MM3 Lymphocytes # (Auto) 0.6 TH/MM3 0.7 TH/MM3 Monocytes # (Auto) 0.4 TH/MM3 0.4 TH/MM3 Eosinophils # (Auto) 0.2 TH/MM3 0.2 TH/MM3 Basophils # (Auto) 0.1 TH/MM3 0.1 TH/MM3 CBC Comment DIFF FINAL DIFF FINAL Differential Comment Laboratory Tests Test 07/30/16 07/31/16 08/01/16 16:16 05:50 06:42 Potassium Level 3.9 MEQ/L 3.4 MEQ/L 3.3 MEQ/L Sodium Level 142 MEQ/L 142 MEQ/L Chloride Level 105 MEQ/L 105 MEQ/L Carbon Dioxide Level 22.0 MEQ/L 25.8 MEQ/L Anion Gap 15 MEQ/L 11 MEQ/L Blood Urea Nitrogen 80 MG/DL 62 MG/DL Creatinine 5.24 MG/DL 4.67 MG/DL Estimat Glomerular Filtration 11 ML/MIN 12 ML/MIN Rate Random Glucose 154 MG/DL 133 MG/DL Calcium Level 6.8 MG/DL 7.4 MG/DL Protein Corrected Calcium 6.9 MG/DL 7.2 MG/DL Total Bilirubin 0.6 MG/DL Aspartate Amino Transf 18 U/L (AST/SGOT) Alanine Aminotransferase 28 U/L (ALT/SGPT) Alkaline Phosphatase 84 U/L Total Protein 7.0 GM/DL 7.6 GM/DL Albumin 1.6 GM/DL Microbiology Date/Time Procedure Status Source Growth 07/30/16 14:00 Gram Stain - Final Complete Sputum Endotracheal 07/30/16 14:00 Sputum Culture - Final Complete Pseudomonas Aeruginosa 07/30/16 14:50 Urine Culture - Final Complete Urine Catheterized Urine NO GROWTH IN 48 HOURS. 07/30/16 17:10 Aerobic Blood Culture - Preliminary Resulted Blood Line NO GROWTH IN 2 DAYS 07/30/16 17:10 Anaerobic Blood Culture - Preliminary Resulted Blood Line NO GROWTH IN 2 DAYS 07/30/16 17:19 Aerobic Blood Culture - Preliminary Resulted Blood Peripheral NO GROWTH IN 2 DAYS 07/30/16 17:19 Anaerobic Blood Culture - Preliminary Resulted Blood Peripheral NO GROWTH IN 2 DAYS Imaging Chest X-Ray 07/30/16 0600 Signed Impressions: Service Date/Time: Saturday, July 30, 2016 05:07 - CONCLUSION: 1. Interval increase in hazy opacity in the right lung. 2. Bilateral effusions are again noted with cardiomegaly and the findings are most characteristic of congestive heart failure. Alonzo Bradshaw MD Abdomen/Pelvis CT 07/30/16 0000 Signed Impressions: Service Date/Time: Saturday, July 30, 2016 07:57 - CONCLUSION: 1. No retroperitoneal hematoma. 2. Bibasilar pulmonary consolidations with small effusions. 3. Chronic pancreatitis. No acute inflammation observed. 4. 2 ventral hernias. 5. IVC filter. 6. 3.6 x 3.1 cm AAA. Omer Cheng Jr., MD Chest X-Ray 07/28/16 0600 Signed Impressions: Service Date/Time: Thursday, July 28, 2016 03:09 - CONCLUSION: No significant change. Hazy opacity remains in both lungs most consistent with congestive heart failure. Alonzo Bradshaw MD Last Impressions Chest X-Ray 07/28/16 0600 Signed Impressions: Service Date/Time: Thursday, July 28, 2016 03:09 - CONCLUSION: No significant change. Hazy opacity remains in both lungs most consistent with congestive heart failure. Alonzo Bradshaw MD Abdomen X-Ray 07/24/16 0749 Signed Impressions: Service Date/Time: July 08:28 - CONCLUSION: Air-filled bowel loops centrally but no obstruction seen. Uli Atkins MD Renal Ultrasound 07/20/16 0000 Signed Impressions: Service Date/Time: Wednesday, July 20, 2016 14:32 - CONCLUSION: 1. No acute findings. Renal ultrasound unremarkable. Bladder was not well-visualized. Jose Martin Valderrama MD Lower Extremity Ultrasound 07/20/16 0000 Signed Impressions: Service Date/Time: Wednesday, July 20, 2016 14:39 - CONCLUSION: Negative exam with no evidence of deep venous thrombosis. Alonzo Bradshaw MD Head CT 07/20/16 Signed Impressions: Service Date/Time: Wednesday, July 20, 2016 18:21 - CONCLUSION: 1. No acute intracranial abnormalities. Mild mucosal thickening of the ethmoid air cells. Jose Martin Valderrama MD Chest CT 07/20/16 Signed Impressions: Service Date/Time: Wednesday, July 20, 2016 11:28 - CONCLUSION: 1. Chronic scarring in the lung bases left greater than right. 2. No focal consolidation. 3. Bilateral adrenal masses left greater than right most consistent with adenomas. 4. Nonspecific bowel gas pattern noted in the upper abdomen with air-fluid levels in the small bowel. Alonzo Bradshaw MD Abdomen/Pelvis CT 07/20/16 Signed Impressions: Service Date/Time: Wednesday, July 20, 2016 18:24 - CONCLUSION: 1. Lower abdominal ventral midline hernia containing loop of small bowel. Small bowel is mildly distended somewhat diffusely with fluid and air. Cannot exclude a low grade partial bowel obstruction in the area of herniation. 2. No abnormal fluid collections to suggest abscess. No free air or free fluid. 3. Basilar and dependent lung consolidation, left greater than right. Pneumonia could have this appearance. Small left effusion. 4. NG tip in stomach. Inferior vena cava filter present. Connelly catheter in bladder. Jose Martin Valderrama MD Physical Exam GENERAL: awake, following commands, on the vent, on CPAP, currently slightly dyspneic SKIN: Cool and dry. No generalized rash. HEAD: Atraumatic. Normocephalic. No temporal or scalp tenderness. EYES: [place] conjunctivae. No scleral icterus. No injection or drainage. ENT: Nose without bleeding, or purulent drainage. Endotracheal tube is in the mouth, has moist mucosa. Edentulous NECK: Trachea midline. No JVD or lymphadenopathy. Supple, nontender, no meningeal signs. CARDIOVASCULAR: Regular rate and rhythm without murmurs, gallops, or rubs. RESPIRATORY: Breath sounds equal bilaterally. Has scattered rales. Decreased breath sounds at the bases. GASTROINTESTINAL: Abdomen soft, globular, bowel sounds are present and normoactive. Mildly distended, not tender. No hepato-splenomegaly, or palpable masses. MUSCULOSKELETAL: Extremities without clubbing, cyanosis, or edema. . Feet warm. No joint effusion, or edema noted. NEUROLOGICAL: Awake following all commands LINE: LIJ and RIJ lines with no evidence of infection : Connelly in place, urine looks clear Assessment & Plan Remarks IMPRESSION Group A Strep sepsis, with shock, MOSF, present on admission, source is not established - ?primary bacteremia Respiratory failure PSAE PNA Renal failure, sp CVVHD Thrombocytopenia due to sepsis, no DIC - slowly improving Known DM, HTN, PVD, CAD Diarrhea, abx associated Fevers, better - has PSAE in sputum RECOMMENDATION Monitor temps Continue Cefepime Follow C/S Stop Diflucan Continue lactinex Weaning per CCM Monitor progress D/W RN Spoke with D/W RN Ceci Alexis Dr, MD August 01, 2016 15:41
--- NOTE | 2016-08-01 16:00 | HHI.NPPN ---
Subjective History of Present Illness 71-year-old male with past medical history of diabetes mellitus, hypertension, ischemic heart disease, peripheral neuropathy, chronic kidney disease, history of deep vein thrombosis, hyperlipidemia was brought to the hospital because of generalized weakness, confusion and vomiting and diarrhea. I was called to see the patient because of elevated BUN and creatinine. The patient has history of acute kidney injury in the past and chronic kidney disease. His creatinine was around 1.2 to 1.4, this was in 2012. Additional Remarks Patient is on the vent. now off sedation, now on CPAP. Review of Systems General General Remarks Intubated and sedated. Objective Data Data 07/31/16 08/01/16 19:00 07:00 Intake Total 562 ml 1150 ml Output Total 5175 ml 425 ml Balance -4613 ml 725 ml Intake IV Total 291 ml 573 ml Tube Feeding 271 ml 517 ml Other 60 ml Output Urine Total 175 ml 225 ml Stool Total 800 ml 200 ml Hemodialysis 4200 ml Vital Signs Date Time Temp Pulse Resp B/P Pulse Ox O2 Delivery O2 Flow Rate FiO2 08/01/16 14:44 95 40 08/01/16 11:43 98 40 08/01/16 11:14 26 08/01/16 10:00 93 08/01/16 08:57 40 08/01/16 08:55 97 40 08/01/16 08:00 40 08/01/16 08:00 85 08/01/16 08:00 99.1 85 17 147/44 97 08/01/16 07:35 97 40 08/01/16 06:00 85 08/01/16 06:00 95 149/49 137/57 08/01/16 04:00 99.4 75 19 129/61 97 141/46 08/01/16 04:00 40 08/01/16 04:00 84 08/01/16 03:03 100 40 08/01/16 02:00 78 08/01/16 00:00 99.5 84 18 126/59 97 130/47 08/01/16 00:00 84 08/01/16 00:00 40 07/31/16 22:00 78 07/31/16 21:57 97 40 07/31/16 20:00 100.0 92 23 148/70 97 146/55 07/31/16 20:00 40 07/31/16 20:00 92 07/31/16 19:22 97 40 07/31/16 18:00 95 145/55 07/31/16 18:00 94 07/31/16 16:00 100.9 95 25 162/63 97 07/31/16 16:00 40 07/31/16 16:00 95 -: 08/01/16 0642 08/01/16 0642 Physical Exam General Appearance Remarks Intubated and awake. Eyes Eye Exam: Pupils Equal Throat Throat Exam: Oral Mucosa [place] & Moist Neck Neck Exam: Neck Supple Pulmonary Resp Exam: Rhonchi, Decreased Bases, Diminished Breath Sounds, Poor Inspiratory Effort Cardiology CV Exam: Regular, Normal Sinus Rhythm Gastrointestinal/Abdomen GI Exam: Soft, Non-Tender, Bowel Sounds Present Extremeties Extremities Exam: Trace Edema Neurologic Neuro Exam: Awake Psychiatric Psych Exam: Appropriate Responses Assessment/Plan Assessment Summary: ADALID/Acute Renal Failure Electrolyte Assessment: Metabolic Acidosis Problem List: (1) Diabetes mellitus with neuropathy (2) Leukocytosis (3) Peripheral vascular disease (4) Severe sepsis with acute organ dysfunction (5) History of DVT (deep vein thrombosis) (6) Hypoxia (7) Acidosis (8) Lactic acidosis Plan Patient has some improvement in the urine out put. BP is has improved off pressors. BC results noted, seen by ID. On Unasyn and Flagyl, ID following. Repeat BC negative. CPK also elevated, but improving. BP is improving, HD done yesterday. Off pressors and the BP is stable. K was low and replaced. Hgb. is better after transfusion. HD will be in AM. Weaning as per CCM. Problem Qualifiers (1) Diabetes mellitus with neuropathy: Qualified Code: E11.40 - Type 2 diabetes mellitus with diabetic neuropathy, unspecified jail insulin use status (2) Leukocytosis: Qualified Code: D72.829 - Leukocytosis, unspecified type Frank Magana MD August 01, 2016 16:00
[2016-08-01 16:09] LABS: APTT (PATIENT) 30.5 SEC (24.3-30.1)
[2016-08-01 17:49] LABS: INTERNATIONAL NORMALIZED RATIO 1.1 RATIO; PROTHROMBIN TIME - PATIENT 12.1 SEC (9.8-11.6)
[2016-08-01 21:35] LABS: APTT (PATIENT) 35.4 SEC (24.3-30.1)
[2016-08-02] VITALS (19 sets, daily range): BP systolic 134–156; BP diastolic 43–72; PULSE 88–102; RESP 21–34; TEMP 98.3–99.7; O2SAT 92–100
[2016-08-02] MEDS: METOCLOPRAMIDE HCL 10 MG/2 ML VIAL IV PUSH SCH ×3 (00:21→17:00)
[2016-08-02] MEDS: CHLORHEXIDINE GLUCONATE 2 % 1 PACK (2 CLOTHS) TOP SCH (03:03)
[2016-08-02] MEDS: niCARdipine INJ 50 MG in SODIUM CHLOR 0.9% 250 ML INJ 230 ML IV SCH ×3 (03:03→22:15)
[2016-08-02 03:10] LABS: AUTOMATED NEUTROPHIL # 8.8 TH/MM3 (1.8-7.7); BASOPHIL # 0.1 TH/MM3 (0-0.2); BASOPHIL % 1.1 % (0.0-2.0); EOSINOPHIL # 0.1 TH/MM3 (0-0.4); HEMATOCRIT 25.7 % (39.0-51.0); HEMO FLAGS DIFF FINAL; LYMPH % 7.5 % (9.0-44.0); LYMPHOCYTE # 0.8 TH/MM3 (1.0-4.8); MEAN CELL VOLUME 88.4 FL (80.0-100.0); MEAN CORPUSCULAR HEMOGLOBIN 30.2 PG (27.0-34.0); MEAN CORPUSCULAR HGB CONC 34.2 % (32.0-36.0); MONO % 4.3 % (0.0-8.0); NEUT % 86.1 % (16.0-70.0); PLATELET COUNT 223 TH/MM3 (150-450); RED CELL DISTRIBUTION WIDTH 14.8 % (11.6-17.2); WHITE BLOOD COUNT 10.3 TH/MM3 (4.0-11.0)
[2016-08-02 03:20] LABS: APTT (PATIENT) 37.1 SEC (24.3-30.1)
[2016-08-02 03:47] LABS: ANION GAP 12 MEQ/L (5-15); AST (GOT) 27 U/L (15-37); BICARBONATE 24.6 MEQ/L (21.0-32.0); BLOOD UREA NITROGEN 72 MG/DL (7-18); CHLORIDE 105 MEQ/L (98-107); GLOMERULAR FILTRATION RATE 10 ML/MIN (>89); POTASSIUM 3.5 MEQ/L (3.5-5.1); SODIUM (NA) 142 MEQ/L (136-145)
[2016-08-02 03:50] LABS: ALKALINE PHOSPHATASE 83 U/L (45-117); ALT (GPT) 32 U/L (12-78); TOTAL BILIRUBIN ADULT 0.5 MG/DL (0.2-1.0)
[2016-08-02] MEDS: METOPROLOL TARTRATE 25 MG TAB OG-TUBE SCH ×3 (06:00→22:15)
[2016-08-02] MEDS: INSULIN ASPART SUPPLEMENTAL SCALE SQ SCH ×3 (06:00→18:00)
--- NOTE | 2016-08-02 06:39 | RADRPT ---
EXAM DATE/TIME: 08/02/2016 05:47 [facility] COMPARISON: No previous studies available for comparison. INDICATIONS : Shortness of breath. MEDICAL HISTORY : Congestive heart failure. Diabetes mellitus type II. Renal failure, chronic. Hypertension. SURGICAL HISTORY : Appendectomy. Colon resection. ENCOUNTER: Subsequent ACUITY: 2 weeks PAIN SCORE: Non-responsive. LOCATION: Bilateral chest FINDINGS: A single view of the chest demonstrates endotracheal tube tip in satisfactory position. Left and righ t central line tips in superior vena cava. NG enters stomach. Bilateral mostly basilar airspace disea se present similar to July 30. Small effusions. CONCLUSION: 1. Support apparatus in satisfactory position. Bilateral mostly basilar airspace disease and effusion s similar to July 30. Jose Martin Valderrama MD on August 02, 2016 at 6:36 Board Certified Radiologist. This report was verified electronically.
--- NOTE | 2016-08-02 08:42 | HHI.CCPN ---
Subjective Remarks/Hospital Course 71-year-old male. Date of admission 07/20/2016. Past records includes diabetes with neuropathy and nephropathy, hypertension, dyslipidemia, chronic pain syndrome, history of DVT/PE on chronic anticoagulation, peripheral vascular disease with history of AAA, and osteoporosis. Patient recently C [place] 07/06/16. Patient sick contacts would include neighbor with "vital illness. Patient is to [facility] today with acute onset of diarrhea, hypoglycemia and chills. Upon arrival, patient was noted be acutely hypoxic and required a nonrebreather mask. Patient denies pleuritic chest pain , abdominal pain but positive for nausea and diarrhea. CT chest revealed bilateral lower lobe scarring, bilateral adrenal adenomas a nonspecific bowel gas pattern. Chest x-ray revealed no significant findings. Lab work included a lactic acid elevated 7.7, white blood cell count 12,000 in acute kidney injury with a creatinine of 3.0. Baseline around 1.5-2. Troponin was slightly elevated 0.14. EKG is currently pending. Upon arrival to [facility], patient was extremely mottled with rates in the 40s. Patient was emergently intubated please see note and a left IJ central line was placed. CT of the head, abdomen and pelvis currently pending. 07/21 Patient is sedated with Diprivan and Fentanyl and intubated. On Levophed 22 mics, Vasopressin and bicarb drip. BC from 07/20: GPC all 4 bottles. 07/22 Patient remains sedated and intubated On Levophed 22 mics, vasopressin and bicarb drip. Awaiting to start CVVHD today 07/23: Remains sedated, orally intubated on mech ventilation. On Levophed 15 mics per minute and low-dose vasopressin for pressor support. On CRRT. 07/24: Remains sedated, orally intubated on mechanical ventilation. On Levophed 7 mics per minute and low-dose vasopressin for pressor support. CRRT was stopped at 1:30 AM due to Air in system and has now been resumed. 2 Amps of bicarbonate given for metabolic acidosis while CRRT held and bicarbonate drip was started back yesterday 07/25: Remains critically ill, on CVVH. Levoped 6 mics per minute. White count has normalized, making slight amount of urine. Showing some signs of progress 07/26: Remains sedated, orally intubated on mechanical ventilation. Remains on Levophed 3 mics per minute, vasopressin 0.03 mics per minute. CRRT continues. 07/27: Remains sedated, orally intubated on mechanical ventilation. Remains on Levophed 2 mics per minute, vasopressin 0.03 mics per minute. On CRRT. 07/28: Remains sedated, orally intubated on mechanical ventilation. Off Levophed. Remains on vasopressin. CRRT clotted off this morning and is on hold currently. Nephrology to decide regarding regular hemodialysis as patient is now off Levophed. 07/29: Sedated, arousable, orally intubated on mechanical ventilation. Off Levophed and vasopressin drips. To be initiated on hemodialysis today. Tolerating tube feeds. 07/30: Sedated, arousable, orally intubated on mechanical ventilation. Hemoglobin dropped to 6.9 this morning no evidence of melena or rectal bleeding noted. Stat CT abdomen pelvis did not reveal any evidence of retroperitoneal hematoma. Patient is maintaining his blood pressure and has not had any hypotension. 2 units PRBCs ordered this morning. 07/31: Sedated, arousable, orally intubated on mechanical ventilation. Underwent hemodialysis this morning. 08/01: Arousable off sedation, weakly grasps on command and wiggles toes. Remains orally intubated on mechanical ventilation. Tolerating tube feeds. 08/02: Awake off sedation, orally intubated on mechanical ventilation. Tolerating tube feeds. Awaiting hemodialysis today. Objective Vital Signs Date Time Temp Pulse Resp B/P Pulse Ox O2 Delivery O2 Flow Rate FiO2 08/02/16 08:00 94 08/02/16 08:00 40 08/02/16 07:22 97 08/02/16 04:00 98.4 22 146/52 Intake and Output 08/01/16 08/01/16 08/02/16 08:00 16:00 00:00 Intake Total 580 ml 636 ml 594 ml Output Total 100 ml 550 ml 325 ml Balance 480 ml 86 ml 269 ml Result Diagram: 08/02/16 0300 08/02/16 0300 Other Results Microbiology Date/Time Procedure Status Source Growth 07/30/16 14:00 Gram Stain - Final Complete Sputum Endotracheal 07/30/16 14:00 Sputum Culture - Final Complete Pseudomonas Aeruginosa 07/30/16 14:50 Urine Culture - Final Complete Urine Catheterized Urine NO GROWTH IN 48 HOURS. Imaging Last 48 hours Impressions Chest X-Ray 08/02/16 0600 Signed Impressions: Service Date/Time: Tuesday, August 02, 2016 05:47 - CONCLUSION: 1. Support apparatus in satisfactory position. Bilateral mostly basilar airspace disease and effusions similar to July 30. Jose Martin Valderrama MD Last 24 hours Impressions Chest X-Ray 07/28/16 0600 Signed Impressions: Service Date/Time: Thursday, July 28, 2016 03:09 - CONCLUSION: No significant change. Hazy opacity remains in both lungs most consistent with congestive heart failure. Alonzo Bradshaw MD Last 24 hours Impressions Chest X-Ray 07/26/16 0600 Signed Impressions: Service Date/Time: Tuesday, July 26, 2016 04:56 - CONCLUSION: No significant change. Jovan Aldridge MD Last 48 hours Impressions Abdomen X-Ray 07/24/16 0749 Signed Impressions: Service Date/Time: July 08:28 - CONCLUSION: Air-filled bowel loops centrally but no obstruction seen. Uli Atkins MD Chest X-Ray 07/24/16 0600 Signed Impressions: Service Date/Time: July 05:36 - CONCLUSION: Unchanged bibasilar infiltrates. Omer Cheng Jr., MD Last Impressions Chest X-Ray 07/21/16 0000 Signed Impressions: Service Date/Time: Thursday, July 21, 2016 22:13 - CONCLUSION: Satisfactory central line positioning. Worsening aeration. [place] Guillermo MD Renal Ultrasound 07/20/16 Signed Impressions: Service Date/Time: Wednesday, July 20, 2016 14:32 - CONCLUSION: 1. No acute findings. Renal ultrasound unremarkable. Bladder was not well-visualized. Jose Martin Valderrama MD Lower Extremity Ultrasound 07/20/16 Signed Impressions: Service Date/Time: Wednesday, July 20, 2016 14:39 - CONCLUSION: Negative exam with no evidence of deep venous thrombosis. Alonzo Bradshaw MD Head CT 07/20/16 Signed Impressions: Service Date/Time: Wednesday, July 20, 2016 18:21 - CONCLUSION: 1. No acute intracranial abnormalities. Mild mucosal thickening of the ethmoid air cells. Jose Martin Valderrama MD Chest CT 07/20/16 0000 Signed Impressions: Service Date/Time: Wednesday, July 20, 2016 11:28 - CONCLUSION: 1. Chronic scarring in the lung bases left greater than right. 2. No focal consolidation. 3. Bilateral adrenal masses left greater than right most consistent with adenomas. 4. Nonspecific bowel gas pattern noted in the upper abdomen with air-fluid levels in the small bowel. Alonzo Bradshaw MD Abdomen/Pelvis CT 07/20/16 0000 Signed Impressions: Service Date/Time: Wednesday, July 20, 2016 18:24 - CONCLUSION: 1. Lower abdominal ventral midline hernia containing loop of small bowel. Small bowel is mildly distended somewhat diffusely with fluid and air. Cannot exclude a low grade partial bowel obstruction in the area of herniation. 2. No abnormal fluid collections to suggest abscess. No free air or free fluid. 3. Basilar and dependent lung consolidation, left greater than right. Pneumonia could have this appearance. Small left effusion. 4. NG tip in stomach. Inferior vena cava filter present. Connelly catheter in bladder. Jose Martin Valderrama MD Objective Remarks Drips: Propofol/fentanyl (off). GENERAL: Patient is 71 yo elderly male, intubated. Laying in bed, on mechanical ventilation SKIN: Warm and dry. HEAD: Normocephalic. EYES: Pallor present. No scleral icterus. No injection or drainage. NECK: Supple, trachea midline. No JVD or lymphadenopathy. CARDIOVASCULAR: Regular rate and rhythm without murmurs, gallops, or rubs. RESPIRATORY: Orally intubated on mechanical ventilation, Breath sounds decreased bilaterally at bases. Scattered rhonchi, no wheezing. GASTROINTESTINAL: Abdomen soft, non-tender, nondistended. Bowel sounds sluggish Neuro: Awake and alert off sedation, following commands, intubated. Moves both upper extremities weakly and wiggles toes bilaterally. Extremities: Warm bilaterally, Bilateral edema Urinary Catheter: Yes Assessment to: Continue Line: Central Venous Catheter A/P Assessment and Plan Neuro/Psych: Peripheral neuropathy Chronic pain syndrome Propofol/fentanyl drips for sedation/analgesia while intubated. Ativan IV when necessary for sedation. Goal RASS -2 Daily sedation vacation 07/20 CT brain: No acute intracranial abnormalities. CV: Elevated troponin Hypertension Dyslipidemia Lactic acidosis Septic shock Peripheral vascular disease History of AAA Off Levophed/ vasopressin currently. Labetalol when necessary for SBP greater than 160 mmHg. Started Lopressor 12.5 mg via OG tube every 8 hourly on 07/31. Off Stress dose steroids- Hydrocortisone decreased to 50mg daily on 07/29 and stopped on 07/31 Continue with ASA daily Echo showed EF 35-40% Resp: Acute hypoxemic respiratory failure Tobaccoism On mechanical ventilation. Daily C Pap trials to decide extubation Ventilator bundle Bronchodilator therapy every 4 hours with albuterol every 2 hours. PEEP +5 CT chest 07/20 revealed left greater than right basilar scarring. Bilateral adrenal adenomas. No focal consolidation GI: Tolerating tube feeds- Nepro with goal rate 40ml/hr. tube feeds held for possible extubation Reglan 5 mg IV every 8 hours Protonix for GI prophylaxis Colace/as needed Senokot for bowel regimen CT abdomen reviewed. Gen surgery- Dr Roman- no surgical interventions. : Strict intake output, monitor and replete electrolytes, follow BUN/creatinine. Started CRRT on 07/22, being followed by nephrology Dr. Magana. CRRT on hold since 07/28. Switched to hemodialysis on 07/29. Renal US: No acute findings Endo: Diabetes mellitus with nephropathy and neuropathy Bilateral adrenal adenoma Hyperglycemia Decreased Levemir to 10 units subcutaneously every 12 hourly on 07/31. On high dose sliding scale insulin on 07/29 for better glycemic control. Off steroids. 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 HIT screen negative. Platelets have normalized. Started heparin 5000 units subcutaneously every 12 hourly on 07/29, increased to 5000 units subcutaneously every 8 hourly on 07/31. Transfused 2 units PRBCs for drop in hemoglobin to 6.9 on 07/30. CT abdomen pelvis with no evidence of retroperitoneal hematoma. Most likely secondary to blood loss with CRRT regarding multiple times. Maintaining H&H. Advanced to full anticoagulation with heparin GTT on 08/01 ID: Strep Bacteremia Sepsis Pneumonia Continue with abx per ID - Unasyn switched to cefepime on 07/31 per ID due to pseudomonas in sputum. Clindamycin stopped 07/29, vanco x 1 dose on admission. Pertinent cultures BC 07/20- GPC, Group A Beta strep Urine cx 07/20 : neg Strep pneumonia nad Legionella urinary Ag negative Follow up on Sputum cx, BC 07/21, 07/22- NGTD 07/30 Sputum c/s with pseudomonas MSK: Osteoarthritis Holding vitamin D 1000 units by mouth daily. Access - Left IJ CVL placed 07/20, Art line placed 07/21 -Right IJ vascath placed 07/22 Prophylaxis - GI - Protonix - DVT - SCD/heparin SQ. Starting Heparin gtt 08/01 for full anticoagulation. - Doppler US LE negative for DVT Palliative care is following Patient is critically ill with resp failure, renal failure, septic shock and multiorgan injury. Prognosis guarded. Updated patient's on 07/31 and 08/01 regarding current clinical condition and plan of care and she voiced understanding. I have also previously explained possible need for tracheostomy and PEG tube in about 2 weeks since getting intubated if patient is not extubatable at that time. 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 Time to perform other separately billable procedures was not included in the critical care time. Roman Hicks MD August 02, 2016 08:42
[2016-08-02] MEDS: SENNOSIDES SYRUP 8.8 MG/5 ML CUP OG-TUBE SCH (08:54)
[2016-08-02] MEDS: DOCUSATE SODIUM 100 MG CAP PO SCH ×2 (08:54→19:50)
[2016-08-02] MEDS: PANTOPRAZOLE SODIUM 40 MG VIAL IV SCH (08:54)
[2016-08-02] MEDS: CHLORHEXIDINE 0.12% (ORAL KIT) 15 ML CUP MT SCH ×2 (08:54→19:50)
[2016-08-02] MEDS: SODIUM CHLORIDE 0.9% FLUSH 10 ML FLUSH IV FLUSH SCH ×2 (08:54→19:50)
[2016-08-02] MEDS: ASPIRIN 81 MG CHEW TAB CHEW SCH (08:55)
[2016-08-02] MEDS: SODIUM CHLORIDE 0.9% FLUSH 10 ML FLUSH IVF SCH (08:56)
[2016-08-02] MEDS: INSULIN DETEMIR 100 UNITS/ML VIAL SQ SCH ×2 (08:58→20:21)
[2016-08-02] MEDS: LACTOBACILLUS ACIDOPHILUS TAB PO SCH ×3 (09:03→18:00)
--- NOTE | 2016-08-02 10:16 | HHI.IDPN ---
Subjective Subjective Remarks 71-year-old male admitted to the hospital for acute onset of diarrhea, chills and hypoglycemia. Patient apparently working in the yard July 18 and July 19. He was doing okay except for complaints on his lower extremity which is apparently chronic and related to his peripheral vascular disease. That night, the noted that the patient was breathing hard. She asked the patient and he stated that he is not short of breath. He has not complained of any sore throat, has not been congested, and has eaten without any problem. He has not had any urinary complaints. That night apparently the couldn't sleep, and around 4 :00 in the morning the patient woke up and stated that he wanted to go to the bathroom. Patient didn't make it, and had stool incontinence. He was noted to have some chills, and his blood sugars were low. He also had episode of vomiting. Patient was taken to the hospital, and since admission he is developed profound hypotension, and acidosis. He ended up getting intubated, and currently on Levophed and vasopressin. His white count is elevated, lactic acid elevated, and his creatinine is also quite elevated. His urine output has been low. Cultures done in the emergency room, are now reported as growing group A strep. Notes reviewed D/W Dr Hicks Got extubated this morning On NRB mask Cough is weak - doing oral suctioning Temps ok Awake and following commands BP good Julian TF BC negative UC negative Sputum with PSAE C diff negative Antibiotics Cefepime Lines LIJ TLC RIJ vascath Past Medical History Reviewed Allergies: Coded Allergies: No Known Allergies (Verified , 07/20/16) Objective . Vital Signs Date Time Temp Pulse Resp B/P Pulse Ox O2 Delivery O2 Flow Rate FiO2 08/02/16 08:00 94 08/02/16 08:00 40 08/02/16 07:22 97 40 08/02/16 07:22 40 08/02/16 06:00 98 08/02/16 04:11 96 40 08/02/16 04:00 98.4 94 22 146/52 100 08/02/16 04:00 93 08/02/16 04:00 40 08/02/16 02:00 96 08/02/16 00:05 98 40 08/02/16 00:00 40 08/02/16 00:00 98.6 96 22 147/49 96 08/02/16 00:00 96 08/01/16 22:00 102 08/01/16 20:03 97 40 08/01/16 20:00 95 08/01/16 20:00 40 08/01/16 20:00 99.6 101 21 144/50 97 08/01/16 20:00 101 08/01/16 18:00 95 08/01/16 16:25 40 08/01/16 16:15 95 40 08/01/16 16:00 40 08/01/16 16:00 98.9 100 31 144/52 95 08/01/16 16:00 100 08/01/16 14:44 95 40 08/01/16 14:00 98 08/01/16 12:00 40 08/01/16 12:00 99.4 92 27 164/59 97 08/01/16 12:00 92 08/01/16 11:43 98 40 08/01/16 11:14 26 08/01/16 08/01/16 08/02/16 15:00 23:00 07:00 Intake Total 636 ml 594 ml 766 ml Output Total 550 ml 325 ml 300 ml Balance 86 ml 269 ml 466 ml Intake IV Total 316 ml 408 ml 486 ml Tube Feeding 320 ml 186 ml 280 ml Output Urine Total 150 ml 175 ml 200 ml Stool Total 400 ml 150 ml 100 ml . Laboratory Tests Test 08/01/16 08/02/16 06:42 03:00 White Blood Count 10.8 TH/MM3 10.3 TH/MM3 Red Blood Count 2.91 MIL/MM3 2.90 MIL/MM3 Hemoglobin 8.7 GM/DL 8.8 GM/DL Hematocrit 25.8 % 25.7 % Mean Corpuscular Volume 88.8 FL 88.4 FL Mean Corpuscular Hemoglobin 30.0 PG 30.2 PG Mean Corpuscular Hemoglobin 33.8 % 34.2 % Concent Red Cell Distribution Width 15.2 % 14.8 % Platelet Count 172 TH/MM3 223 TH/MM3 Mean Platelet Volume 9.8 FL 9.5 FL Neutrophils (%) (Auto) 86.9 % 86.1 % Lymphocytes (%) (Auto) 6.6 % 7.5 % Monocytes (%) (Auto) 3.6 % 4.3 % Eosinophils (%) (Auto) 2.2 % 1.0 % Basophils (%) (Auto) 0.7 % 1.1 % Neutrophils # (Auto) 9.4 TH/MM3 8.8 TH/MM3 Lymphocytes # (Auto) 0.7 TH/MM3 0.8 TH/MM3 Monocytes # (Auto) 0.4 TH/MM3 0.4 TH/MM3 Eosinophils # (Auto) 0.2 TH/MM3 0.1 TH/MM3 Basophils # (Auto) 0.1 TH/MM3 0.1 TH/MM3 CBC Comment DIFF FINAL DIFF FINAL Differential Comment Laboratory Tests Test 08/01/16 08/02/16 06:42 03:00 Sodium Level 142 MEQ/L 142 MEQ/L Potassium Level 3.3 MEQ/L 3.5 MEQ/L Chloride Level 105 MEQ/L 105 MEQ/L Carbon Dioxide Level 25.8 MEQ/L 24.6 MEQ/L Anion Gap 11 MEQ/L 12 MEQ/L Blood Urea Nitrogen 62 MG/DL 72 MG/DL Creatinine 4.67 MG/DL 5.61 MG/DL Estimat Glomerular Filtration 12 ML/MIN 10 ML/MIN Rate Random Glucose 133 MG/DL 170 MG/DL Calcium Level 7.4 MG/DL 7.6 MG/DL Protein Corrected Calcium 7.2 MG/DL Total Protein 7.6 GM/DL 8.0 GM/DL Total Bilirubin 0.5 MG/DL Aspartate Amino Transf 27 U/L (AST/SGOT) Alanine Aminotransferase 32 U/L (ALT/SGPT) Alkaline Phosphatase 83 U/L Albumin 1.5 GM/DL Microbiology Date/Time Procedure Status Source Growth 07/30/16 14:00 Gram Stain - Final Complete Sputum Endotracheal 07/30/16 14:00 Sputum Culture - Final Complete Pseudomonas Aeruginosa 07/30/16 14:50 Urine Culture - Final Complete Urine Catheterized Urine NO GROWTH IN 48 HOURS. 07/30/16 17:10 Aerobic Blood Culture - Preliminary Resulted Blood Line NO GROWTH IN 2 DAYS 07/30/16 17:10 Anaerobic Blood Culture - Preliminary Resulted Blood Line NO GROWTH IN 2 DAYS 07/30/16 17:19 Aerobic Blood Culture - Preliminary Resulted Blood Peripheral NO GROWTH IN 2 DAYS 07/30/16 17:19 Anaerobic Blood Culture - Preliminary Resulted Blood Peripheral NO GROWTH IN 2 DAYS Imaging Chest X-Ray 08/02/16 0600 Signed Impressions: Service Date/Time: Tuesday, August 02, 2016 05:47 - CONCLUSION: 1. Support apparatus in satisfactory position. Bilateral mostly basilar airspace disease and effusions similar to July 30. Jose Martin Valderrama MD Chest X-Ray 07/30/16 06 Signed Impressions: Service Date/Time: Saturday, July 30, 2016 05:07 - CONCLUSION: 1. Interval increase in hazy opacity in the right lung. 2. Bilateral effusions are again noted with cardiomegaly and the findings are most characteristic of congestive heart failure. Alonzo Bradshaw MD Abdomen/Pelvis CT 07/30/16 0000 Signed Impressions: Service Date/Time: Saturday, July 30, 2016 07:57 - CONCLUSION: 1. No retroperitoneal hematoma. 2. Bibasilar pulmonary consolidations with small effusions. 3. Chronic pancreatitis. No acute inflammation observed. 4. 2 ventral hernias. 5. IVC filter. 6. 3.6 x 3.1 cm AAA. Omer Cheng Jr., MD Chest X-Ray 07/28/16 06 Signed Impressions: Service Date/Time: Thursday, July 28, 2016 03:09 - CONCLUSION: No significant change. Hazy opacity remains in both lungs most consistent with congestive heart failure. Alonzo Bradshaw MD Last Impressions Chest X-Ray 07/28/16 06 Signed Impressions: Service Date/Time: Thursday, July 28, 2016 03:09 - CONCLUSION: No significant change. Hazy opacity remains in both lungs most consistent with congestive heart failure. Alonzo Bradshaw MD Abdomen X-Ray 07/24/16 0749 Signed Impressions: Service Date/Time: July 08:28 - CONCLUSION: Air-filled bowel loops centrally but no obstruction seen. Uli Atkins MD Renal Ultrasound 07/20/16 Signed Impressions: Service Date/Time: Wednesday, July 20, 2016 14:32 - CONCLUSION: 1. No acute findings. Renal ultrasound unremarkable. Bladder was not well-visualized. Jose Martin Valderrama MD Lower Extremity Ultrasound 07/20/16 Signed Impressions: Service Date/Time: Wednesday, July 20, 2016 14:39 - CONCLUSION: Negative exam with no evidence of deep venous thrombosis. Alonzo Bradshaw MD Head CT 07/20/16 Signed Impressions: Service Date/Time: Wednesday, July 20, 2016 18:21 - CONCLUSION: 1. No acute intracranial abnormalities. Mild mucosal thickening of the ethmoid air cells. Jose Martin Valderrama MD Chest CT 07/20/16 0000 Signed Impressions: Service Date/Time: Wednesday, July 20, 2016 11:28 - CONCLUSION: 1. Chronic scarring in the lung bases left greater than right. 2. No focal consolidation. 3. Bilateral adrenal masses left greater than right most consistent with adenomas. 4. Nonspecific bowel gas pattern noted in the upper abdomen with air-fluid levels in the small bowel. Alonzo Bradshaw MD Abdomen/Pelvis CT 07/20/16 0000 Signed Impressions: Service Date/Time: Wednesday, July 20, 2016 18:24 - CONCLUSION: 1. Lower abdominal ventral midline hernia containing loop of small bowel. Small bowel is mildly distended somewhat diffusely with fluid and air. Cannot exclude a low grade partial bowel obstruction in the area of herniation. 2. No abnormal fluid collections to suggest abscess. No free air or free fluid. 3. Basilar and dependent lung consolidation, left greater than right. Pneumonia could have this appearance. Small left effusion. 4. NG tip in stomach. Inferior vena cava filter present. Connelly catheter in bladder. Jose Martin Valderrama MD Physical Exam GENERAL: awake, following commands, currently slightly dyspneic. On NRB mask SKIN: Cool and dry. No generalized rash. HEAD: Atraumatic. Normocephalic. No temporal or scalp tenderness. EYES: [place] conjunctivae. No scleral icterus. No injection or drainage. ENT: Nose without bleeding, or purulent drainage. Endotracheal tube is in the mouth, has moist mucosa. Edentulous NECK: Trachea midline. No JVD or lymphadenopathy. Supple, nontender, no meningeal signs. CARDIOVASCULAR: Regular rate and rhythm without murmurs, gallops, or rubs. RESPIRATORY: Has scattered rhonchi GASTROINTESTINAL: Abdomen soft, globular, bowel sounds are present and normoactive. Not tender. No hepato-splenomegaly, or palpable masses. MUSCULOSKELETAL: Extremities without clubbing, cyanosis, or edema. . Feet warm. No joint effusion, or edema noted. NEUROLOGICAL: Awake following all commands LINE: LIJ and RIJ lines with no evidence of infection : Connelly in place, urine looks clear Assessment & Plan Remarks IMPRESSION Group A Strep sepsis, with shock, MOSF, present on admission, source is not established - ?primary bacteremia, ?respiratory - echo valves look ok - no other (+) BC except the ones on admission Respiratory failure, extubated 08/02 PSAE PNA Renal failure, S/P CVVHD, on HD now Thrombocytopenia due to sepsis, no DIC - resolved Known DM, HTN, PVD, CAD Diarrhea, abx associated Fevers, better - has PSAE in sputum RECOMMENDATION Monitor temps Continue Cefepime - should also Rx GAS Would give 14 days Rx for GAS Plan 7 days Cefepime for PSAE - give until 08/07 Follow C/S Monitor progress Monitor respiratory status post extubation Spoke with D/W Dr Darek Hicks ([facility]) Ceci Niño MD August 02, 2016 10:16
[2016-08-02 10:54] LABS: APTT (PATIENT) 38.4 SEC (24.3-30.1)
[2016-08-02] MEDS: RESP: ALBUTEROL 2.5 MG/IPRATROPIUM 0.5 MG NEB (SCH) NEB ×4 (11:17→23:11)
--- NOTE | 2016-08-02 12:48 | HHI.NPPN ---
Subjective History of Present Illness 71-year-old male with past medical history of diabetes mellitus, hypertension, ischemic heart disease, peripheral neuropathy, chronic kidney disease, history of deep vein thrombosis, hyperlipidemia was brought to the hospital because of generalized weakness, confusion and vomiting and diarrhea. I was called to see the patient because of elevated BUN and creatinine. The patient has history of acute kidney injury in the past and chronic kidney disease. His creatinine was around 1.2 to 1.4, this was in 2012. Additional Remarks Patient is now with NRM, extubated, has hoarseness of voice. Review of Systems General Constitutional: Fatigue Respiratory Lungs: SOB, Cough, Sputum, Wheeze Objective Data Data 08/01/16 08/02/16 19:00 07:00 Intake Total 636 ml 1360 ml Output Total 550 ml 625 ml Balance 86 ml 735 ml Intake IV Total 316 ml 894 ml Tube Feeding 320 ml 466 ml Output Urine Total 150 ml 375 ml Stool Total 400 ml 250 ml Vital Signs Date Time Temp Pulse Resp B/P Pulse Ox O2 Delivery O2 Flow Rate FiO2 08/02/16 10:00 102 08/02/16 09:25 93 Non-Rebreather 15 100 08/02/16 09:25 92 Non-Rebreather 15.00 100 08/02/16 08:00 94 08/02/16 08:00 99.7 100 32 156/72 97 146/50 08/02/16 08:00 40 08/02/16 07:22 97 40 08/02/16 07:22 40 08/02/16 06:00 98 08/02/16 04:11 96 40 08/02/16 04:00 98.4 94 22 146/52 100 08/02/16 04:00 93 08/02/16 04:00 40 08/02/16 02:00 96 08/02/16 00:05 98 40 08/02/16 00:00 40 08/02/16 00:00 98.6 96 22 147/49 96 08/02/16 00:00 96 08/01/16 22:00 102 08/01/16 20:03 97 40 08/01/16 20:00 95 08/01/16 20:00 40 08/01/16 20:00 99.6 101 21 144/50 97 08/01/16 20:00 101 08/01/16 18:00 95 08/01/16 16:25 40 08/01/16 16:15 95 40 08/01/16 16:00 40 08/01/16 16:00 98.9 100 31 144/52 95 08/01/16 16:00 100 08/01/16 14:44 95 40 08/01/16 14:00 98 -: 08/02/16 0300 08/02/16 0300 Physical Exam General Appearance: No Acute Distress, Anxious Eyes Eye Exam: Pupils Equal Throat Throat Exam: Oral Mucosa [place] & Moist Neck Neck Exam: Neck Supple Pulmonary Resp Exam: Rhonchi, Decreased Bases, Diminished Breath Sounds, Poor Inspiratory Effort Cardiology CV Exam: Regular, Normal Sinus Rhythm Gastrointestinal/Abdomen GI Exam: Soft, Non-Tender, Bowel Sounds Present Extremeties Extremities Exam: Trace Edema Neurologic Neuro Exam: Alert, Awake Psychiatric Psych Exam: Appropriate Responses Assessment/Plan Assessment Summary: ADALID/Acute Renal Failure Electrolyte Assessment: Metabolic Acidosis Problem List: (1) Diabetes mellitus with neuropathy (2) Leukocytosis (3) Peripheral vascular disease (4) Severe sepsis with acute organ dysfunction (5) History of DVT (deep vein thrombosis) (6) Hypoxia (7) Acidosis (8) Lactic acidosis Plan Patient has some improvement in the urine out put. BP is has improved off pressors. BC results noted, seen by ID. On Unasyn and Flagyl, ID following. Repeat BC negative. CPK also elevated, but improving. BP is improving, Off pressors and the BP is stable. K was low and replaced. Creatinine still elevated, HD will be again today. Problem Qualifiers (1) Diabetes mellitus with neuropathy: Qualified Code: E11.40 - Type 2 diabetes mellitus with diabetic neuropathy, unspecified senior care insulin use status (2) Leukocytosis: Qualified Code: D72.829 - Leukocytosis, unspecified type Frank Magana MD August 02, 2016 12:48
[2016-08-02] MEDS ORDERED: MIDAZOLAM HCL 5 MG/ML VIAL (1 ML) ONE (14:16)
[2016-08-02] MEDS ORDERED: ROCURONIUM INJ 50 MG/5 ML VIAL ONE (14:17)
[2016-08-02] MEDS: PROPOFOL 1000 MG/100 ML IV SCH (15:03)
[2016-08-02] MEDS: CEFEPIME INJ 1,000 MG in SODIUM CHLORIDE 0.9% INJ 100 ML IV SCH (15:04)
--- NOTE | 2016-08-02 15:11 | RADRPT ---
EXAM DATE/TIME: 08/02/2016 14:42 [place] COMPARISON: CHEST SINGLE AP, August 02, 2016, 5:47. INDICATIONS : Status post intubation. MEDICAL HISTORY : Hypertension. Congestive heart failure. Diabetes mellitus type II. Renal failure, chronic. SURGICAL HISTORY : None. ENCOUNTER: Subsequent ACUITY: 1 day PAIN SCORE: Non-responsive. LOCATION: chest FINDINGS: Single AP view of the chest. Endotracheal tube, right IJ central venous catheter, and left IJ central venous catheter remain in place. Nasogastric tube is no longer seen. Persistent bilateral pulmonary parenchymal opacity unchanged. No evidence of pneumothorax. CONCLUSION: No significant interval change in bilateral pulmonary opacity. Castillo Roldan MD on August 02, 2016 at 15:09 Board Certified Radiologist. This report was verified electronically.
--- NOTE | 2016-08-02 16:11 | PD.PROCEDR ---
Procedure Note Procedure Endotracheal Intubation Diagnosis: Acute hypoxic respiratory failure Indications: Acute hypoxic respiratory failure Consent: Consent is deemed emergent or medically necessary Anesthesia: Versed 10 mg IV, Rocuronium 50 mg IV Description of the Procedure: The patient was positioned in the sniffing position. Pre-oxygenation was performed using a [id number]. Anesthesia was induced via rapid sequence. A Moore #2 was used for laryngoscopy and a Grade I view was obtained. A 8.5 cuffed endotracheal tube was inserted atraumatically through the vocal cords. Confirmation of correct endotracheal tube placement was made by equal and bilateral breath sounds and colorimetric CO2 detection. The endotracheal tube was secured at 23 cm at the teeth. There were no immediate complications noted. The patient remained hemodynamically stable throughout the procedure. A chest x-ray has been ordered. I personally performed the procedure. Vitor Barrera MD August 02, 2016 16:11
[2016-08-02 17:47] LABS: APTT (PATIENT) 65.7 SEC (24.3-30.1)
[2016-08-02] MEDS: MAGNESIUM SULFAT 1 GM PREMIX 100 ML x2 bags IV SCH ×2 (18:09→18:10)
[2016-08-02] MEDS: HEPARIN-D5W INJ 250 ML IV SCH (18:11)
[2016-08-02] MEDS: GENTAMICIN SULFATE (DIALYSIS USE ONLY) 20 MG/2 ML VIAL OTHER PRN (19:21)
[2016-08-02] MEDS: HEPARIN SODIUM - IV 10,000 UNITS/10 ML VIAL OTHER PRN (19:22)
[2016-08-02 23:46] LABS: APTT (PATIENT) 44.3 SEC (24.3-30.1)
[2016-08-03] VITALS (20 sets, daily range): BP systolic 140–164; BP diastolic 47–72; PULSE 78–110; RESP 15–33; TEMP 98.7–99.3; O2SAT 94–100
[2016-08-03] MEDS: INSULIN ASPART SUPPLEMENTAL SCALE SQ SCH ×5 (00:13→23:28)
[2016-08-03] MEDS: METOCLOPRAMIDE HCL 10 MG/2 ML VIAL IV PUSH SCH ×4 (00:14→23:28)
[2016-08-03] MEDS: RESP: ALBUTEROL 2.5 MG/IPRATROPIUM 0.5 MG NEB (SCH) NEB ×6 (03:19→22:59)
[2016-08-03] MEDS: PROPOFOL 1000 MG/100 ML IV SCH ×2 (03:32→20:46)
[2016-08-03] MEDS: CHLORHEXIDINE GLUCONATE 2 % 1 PACK (2 CLOTHS) TOP SCH (04:00)
[2016-08-03] MEDS: METOPROLOL TARTRATE 25 MG TAB OG-TUBE SCH ×3 (06:28→20:46)
[2016-08-03 07:20] LABS: APTT (PATIENT) 40.4 SEC (24.3-30.1)
[2016-08-03 07:32] LABS: BASOPHIL # 0.1 TH/MM3 (0-0.2); BASOPHIL % 1.5 % (0.0-2.0); EOSINOPHIL # 0.2 TH/MM3 (0-0.4); EOSINOPHIL % 3.2 % (0.0-4.0); HEMATOCRIT 24.1 % (39.0-51.0); HEMO FLAGS DIFF FINAL; LYMPH % 10.4 % (9.0-44.0); LYMPHOCYTE # 0.8 TH/MM3 (1.0-4.8); MEAN CELL VOLUME 88.1 FL (80.0-100.0); MEAN CORPUSCULAR HEMOGLOBIN 30.1 PG (27.0-34.0); MEAN CORPUSCULAR HGB CONC 34.1 % (32.0-36.0); MONO % 6.1 % (0.0-8.0); NEUT % 78.8 % (16.0-70.0); PLATELET COUNT 245 TH/MM3 (150-450); RED BLOOD COUNT 2.73 MIL/MM3 (4.50-5.90); RED CELL DISTRIBUTION WIDTH 14.9 % (11.6-17.2); WHITE BLOOD COUNT 7.7 TH/MM3 (4.0-11.0)
[2016-08-03] MEDS: HEPARIN-D5W INJ 250 ML IV SCH ×2 (08:32→19:51)
[2016-08-03] MEDS: SENNOSIDES SYRUP 8.8 MG/5 ML CUP OG-TUBE SCH (08:33)
[2016-08-03] MEDS: ASPIRIN 81 MG CHEW TAB CHEW SCH (08:33)
[2016-08-03] MEDS: PANTOPRAZOLE SODIUM 40 MG VIAL IV SCH (08:33)
[2016-08-03] MEDS: INSULIN DETEMIR 100 UNITS/ML VIAL SQ SCH ×2 (08:33→19:51)
[2016-08-03] MEDS: DOCUSATE SODIUM 100 MG CAP PO SCH ×2 (08:34→19:52)
[2016-08-03] MEDS: LACTOBACILLUS ACIDOPHILUS TAB PO SCH ×3 (08:34→17:30)
[2016-08-03] MEDS: SODIUM CHLORIDE 0.9% FLUSH 10 ML FLUSH IV FLUSH SCH ×2 (08:35→19:52)
[2016-08-03] MEDS: SODIUM CHLORIDE 0.9% FLUSH 10 ML FLUSH IVF SCH (08:35)
[2016-08-03] MEDS: CHLORHEXIDINE 0.12% (ORAL KIT) 15 ML CUP MT SCH ×2 (08:35→19:52)
[2016-08-03 09:02] LABS: ANION GAP 12 MEQ/L (5-15); AST (GOT) 22 U/L (15-37); BICARBONATE 25.7 MEQ/L (21.0-32.0); BLOOD UREA NITROGEN 62 MG/DL (7-18); CHLORIDE 102 MEQ/L (98-107); GLOMERULAR FILTRATION RATE 11 ML/MIN (>89); MAGNESIUM 2.5 MG/DL (1.5-2.5); POTASSIUM 3.4 MEQ/L (3.5-5.1); SODIUM (NA) 140 MEQ/L (136-145)
[2016-08-03 09:05] LABS: ALKALINE PHOSPHATASE 80 U/L (45-117); ALT (GPT) 32 U/L (12-78); TOTAL BILIRUBIN ADULT 0.4 MG/DL (0.2-1.0)
[2016-08-03] MEDS: niCARdipine INJ 50 MG in SODIUM CHLOR 0.9% 250 ML INJ 230 ML IV SCH ×2 (09:44→17:25)
--- NOTE | 2016-08-03 12:34 | HHI.NPPN ---
Subjective History of Present Illness 71-year-old male with past medical history of diabetes mellitus, hypertension, ischemic heart disease, peripheral neuropathy, chronic kidney disease, history of deep vein thrombosis, hyperlipidemia was brought to the hospital because of generalized weakness, confusion and vomiting and diarrhea. I was called to see the patient because of elevated BUN and creatinine. The patient has history of acute kidney injury in the past and chronic kidney disease. His creatinine was around 1.2 to 1.4, this was in 2012. Additional Remarks Patient is re intubated, awake, now on CPAP. Review of Systems General Constitutional: Fatigue Respiratory Lungs: SOB, Cough, Sputum, Wheeze Objective Data Data 08/02/16 08/03/16 19:00 07:00 Intake Total 557 ml 1279 ml Output Total 325 ml 325 ml Balance 232 ml 954 ml Intake IV Total 477 ml 788 ml Tube Feeding 80 ml 491 ml Output Urine Total 225 ml 275 ml Stool Total 100 ml 50 ml Vital Signs Date Time Temp Pulse Resp B/P Pulse Ox O2 Delivery O2 Flow Rate FiO2 08/03/16 12:00 40 08/03/16 12:00 98.9 98 32 154/69 97 150/48 08/03/16 11:26 95 40 08/03/16 10:03 94 40 08/03/16 08:00 98 08/03/16 08:00 98.8 98 32 154/69 97 150/48 08/03/16 08:00 40 08/03/16 07:40 98 40 08/03/16 07:40 40 08/03/16 06:00 100 08/03/16 04:08 97 40 08/03/16 04:00 99.1 96 28 164/50 100 08/03/16 04:00 96 08/03/16 04:00 40 08/03/16 02:00 78 08/03/16 01:15 98 40 08/03/16 00:00 95 08/03/16 00:00 40 08/03/16 00:00 99.3 95 30 153/72 100 153/52 08/02/16 22:15 97 40 08/02/16 22:00 98 08/02/16 20:00 40 08/02/16 20:00 90 08/02/16 20:00 98.8 90 28 147/67 100 154/46 08/02/16 19:40 93 40 08/02/16 18:00 88 08/02/16 16:00 40 08/02/16 16:00 98.3 90 21 145/67 97 134/43 08/02/16 16:00 94 08/02/16 14:20 95 40 08/02/16 14:00 96 08/02/16 14:00 40 -: 08/03/16 0630 08/03/16 0825 Microbiology 08/03/16 Gram Stain, Received Pending 08/03/16 Sputum Culture, Received Pending Physical Exam General Appearance: No Acute Distress, Anxious Eyes Eye Exam: Pupils Equal Throat Throat Exam: Oral Mucosa [place] & Moist Neck Neck Exam: Neck Supple Pulmonary Resp Exam: Rhonchi, Decreased Bases, Diminished Breath Sounds, Poor Inspiratory Effort Cardiology CV Exam: Regular, Normal Sinus Rhythm Gastrointestinal/Abdomen GI Exam: Soft, Non-Tender, Bowel Sounds Present Extremeties Extremities Exam: Trace Edema Neurologic Neuro Exam: Alert, Awake Psychiatric Psych Exam: Appropriate Responses Assessment/Plan Assessment Summary: ADALID/Acute Renal Failure Electrolyte Assessment: Metabolic Acidosis Problem List: (1) Diabetes mellitus with neuropathy (2) Leukocytosis (3) Peripheral vascular disease (4) Severe sepsis with acute organ dysfunction (5) History of DVT (deep vein thrombosis) (6) Hypoxia (7) Acidosis (8) Lactic acidosis Plan Patient has some improvement in the urine out put. BP is has improved off pressors. BC results noted, seen by ID. On Unasyn and Flagyl, ID following. Repeat BC negative. CPK also elevated, but improving. Off pressors and the BP is stable. Creatinine still elevated, HD done yesterday. Re intubated for Hypoxemia. HD as needed. Problem Qualifiers (1) Diabetes mellitus with neuropathy: Qualified Code: E11.40 - Type 2 diabetes mellitus with diabetic neuropathy, unspecified terminal gauger insulin use status (2) Leukocytosis: Qualified Code: D72.829 - Leukocytosis, unspecified type Frank Magana MD August 03, 2016 12:34
--- NOTE | 2016-08-03 13:46 | HHI.IDPN ---
Subjective Subjective Remarks 71-year-old male admitted to the hospital for acute onset of diarrhea, chills and hypoglycemia. Patient apparently working in the yard July 18 and July 19. He was doing okay except for complaints on his lower extremity which is apparently chronic and related to his peripheral vascular disease. That night, the noted that the patient was breathing hard. She asked the patient and he stated that he is not short of breath. He has not complained of any sore throat, has not been congested, and has eaten without any problem. He has not had any urinary complaints. That night apparently the couldn't sleep, and around 4 :00 in the morning the patient woke up and stated that he wanted to go to the bathroom. Patient didn't make it, and had stool incontinence. He was noted to have some chills, and his blood sugars were low. He also had episode of vomiting. Patient was taken to the hospital, and since admission he is developed profound hypotension, and acidosis. He ended up getting intubated, and currently on Levophed and vasopressin. His white count is elevated, lactic acid elevated, and his creatinine is also quite elevated. His urine output has been low. Cultures done in the emergency room, are now reported as growing group A strep. Notes reviewed Patient required reintubation yesterday afternoon Temps ok BP ok CXR no change in infiltrates Awake and following commands Had HD yesterday Antibiotics Cefepime Lines J TLC CHRISSYJ marianela Past Medical History Reviewed Allergies: Coded Allergies: No Known Allergies (Verified , 07/20/16) Objective . Vital Signs Date Time Temp Pulse Resp B/P Pulse Ox O2 Delivery O2 Flow Rate FiO2 08/03/16 12:00 40 08/03/16 12:00 98.9 98 32 154/69 97 150/48 08/03/16 11:26 95 40 08/03/16 10:03 94 40 08/03/16 08:00 98 08/03/16 08:00 98.8 98 32 154/69 97 150/48 08/03/16 08:00 40 08/03/16 07:40 98 40 08/03/16 07:40 40 08/03/16 06:00 100 08/03/16 04:08 97 40 08/03/16 04:00 99.1 96 28 164/50 100 08/03/16 04:00 96 08/03/16 04:00 40 08/03/16 02:00 78 08/03/16 01:15 98 40 08/03/16 00:00 95 08/03/16 00:00 40 08/03/16 00:00 99.3 95 30 153/72 100 153/52 08/02/16 22:15 97 40 08/02/16 22:00 98 08/02/16 20:00 40 08/02/16 20:00 90 08/02/16 20:00 98.8 90 28 147/67 100 154/46 08/02/16 19:40 93 40 08/02/16 18:00 88 08/02/16 16:00 40 08/02/16 16:00 98.3 90 21 145/67 97 134/43 08/02/16 16:00 94 08/02/16 14:20 95 40 08/02/16 14:00 96 08/02/16 14:00 40 08/02/16 08/02/16 08/03/16 15:00 23:00 07:00 Intake Total 557 ml 683 ml 596 ml Output Total 325 ml 175 ml 150 ml Balance 232 ml 508 ml 446 ml Intake IV Total 477 ml 458 ml 330 ml Tube Feeding 80 ml 225 ml 266 ml Output Urine Total 225 ml 125 ml 150 ml Stool Total 100 ml 50 ml 0 ml . Laboratory Tests Test 08/02/16 08/03/16 03:00 06:30 White Blood Count 10.3 TH/MM3 7.7 TH/MM3 Red Blood Count 2.90 MIL/MM3 2.73 MIL/MM3 Hemoglobin 8.8 GM/DL 8.2 GM/DL Hematocrit 25.7 % 24.1 % Mean Corpuscular Volume 88.4 FL 88.1 FL Mean Corpuscular Hemoglobin 30.2 PG 30.1 PG Mean Corpuscular Hemoglobin 34.2 % 34.1 % Concent Red Cell Distribution Width 14.8 % 14.9 % Platelet Count 223 TH/MM3 245 TH/MM3 Mean Platelet Volume 9.5 FL 9.4 FL Neutrophils (%) (Auto) 86.1 % 78.8 % Lymphocytes (%) (Auto) 7.5 % 10.4 % Monocytes (%) (Auto) 4.3 % 6.1 % Eosinophils (%) (Auto) 1.0 % 3.2 % Basophils (%) (Auto) 1.1 % 1.5 % Neutrophils # (Auto) 8.8 TH/MM3 6.0 TH/MM3 Lymphocytes # (Auto) 0.8 TH/MM3 0.8 TH/MM3 Monocytes # (Auto) 0.4 TH/MM3 0.5 TH/MM3 Eosinophils # (Auto) 0.1 TH/MM3 0.2 TH/MM3 Basophils # (Auto) 0.1 TH/MM3 0.1 TH/MM3 CBC Comment DIFF FINAL DIFF FINAL Differential Comment Laboratory Tests Test 08/02/16 08/03/16 03:00 08:25 Sodium Level 142 MEQ/L 140 MEQ/L Potassium Level 3.5 MEQ/L 3.4 MEQ/L Chloride Level 105 MEQ/L 102 MEQ/L Carbon Dioxide Level 24.6 MEQ/L 25.7 MEQ/L Anion Gap 12 MEQ/L 12 MEQ/L Blood Urea Nitrogen 72 MG/DL 62 MG/DL Creatinine 5.61 MG/DL 5.17 MG/DL Estimat Glomerular Filtration 10 ML/MIN 11 ML/MIN Rate Random Glucose 170 MG/DL 144 MG/DL Calcium Level 7.6 MG/DL 7.6 MG/DL Total Bilirubin 0.5 MG/DL 0.4 MG/DL Aspartate Amino Transf 27 U/L 22 U/L (AST/SGOT) Alanine Aminotransferase 32 U/L 32 U/L (ALT/SGPT) Alkaline Phosphatase 83 U/L 80 U/L Total Protein 8.0 GM/DL 8.5 GM/DL Albumin 1.5 GM/DL 1.6 GM/DL Phosphorus Level 6.4 MG/DL Magnesium Level 2.5 MG/DL Microbiology Date/Time Procedure Status Source Growth 08/03/16 08:20 Gram Stain Received Sputum Endotracheal Pending 08/03/16 08:20 Sputum Culture Received Sputum Endotracheal Pending Imaging Chest X-Ray 08/02/16 1421 Signed Impressions: Service Date/Time: Tuesday, August 02, 2016 14:42 - CONCLUSION: No significant interval change in bilateral pulmonary opacity. Castillo Roldan MD Chest X-Ray 08/02/16 0600 Signed Impressions: Service Date/Time: Tuesday, August 02, 2016 05:47 - CONCLUSION: 1. Support apparatus in satisfactory position. Bilateral mostly basilar airspace disease and effusions similar to July 30. Jose Martin Valderrama MD Chest X-Ray 08/02/16 1421 Signed Impressions: Service Date/Time: Tuesday, August 02, 2016 14:42 - CONCLUSION: No significant interval change in bilateral pulmonary opacity. Castillo Roldan MD Abdomen/Pelvis CT 07/30/16 0000 Signed Impressions: Service Date/Time: Saturday, July 30, 2016 07:57 - CONCLUSION: 1. No retroperitoneal hematoma. 2. Bibasilar pulmonary consolidations with small effusions. 3. Chronic pancreatitis. No acute inflammation observed. 4. 2 ventral hernias. 5. IVC filter. 6. 3.6 x 3.1 cm AAA. Omer Cheng Jr., MD Abdomen X-Ray 07/24/16 0749 Signed Impressions: Service Date/Time: July 08:28 - CONCLUSION: Air-filled bowel loops centrally but no obstruction seen. Uli Atkins MD Renal Ultrasound 07/20/16 0000 Signed Impressions: Service Date/Time: Wednesday, July 20, 2016 14:32 - CONCLUSION: 1. No acute findings. Renal ultrasound unremarkable. Bladder was not well-visualized. Jose Martin Valderrama MD Lower Extremity Ultrasound 07/20/16 0000 Signed Impressions: Service Date/Time: Wednesday, July 20, 2016 14:39 - CONCLUSION: Negative exam with no evidence of deep venous thrombosis. Alonzo Bradshaw MD Head CT 07/20/16 0000 Signed Impressions: Service Date/Time: Wednesday, July 20, 2016 18:21 - CONCLUSION: 1. No acute intracranial abnormalities. Mild mucosal thickening of the ethmoid air cells. Jose Martin Valderrama MD Chest CT 07/20/16 0000 Signed Impressions: Service Date/Time: Wednesday, July 20, 2016 11:28 - CONCLUSION: 1. Chronic scarring in the lung bases left greater than right. 2. No focal consolidation. 3. Bilateral adrenal masses left greater than right most consistent with adenomas. 4. Nonspecific bowel gas pattern noted in the upper abdomen with air-fluid levels in the small bowel. Alonzo Bradshaw MD Chest X-Ray 08/02/16 0600 Signed Impressions: Service Date/Time: Tuesday, August 02, 2016 05:47 - CONCLUSION: 1. Support apparatus in satisfactory position. Bilateral mostly basilar airspace disease and effusions similar to July 30. Jose Martin Valderrama MD Chest X-Ray 07/30/16 06 Signed Impressions: Service Date/Time: Saturday, July 30, 2016 05:07 - CONCLUSION: 1. Interval increase in hazy opacity in the right lung. 2. Bilateral effusions are again noted with cardiomegaly and the findings are most characteristic of congestive heart failure. Alonzo Bradshaw MD Abdomen/Pelvis CT 07/30/16 0000 Signed Impressions: Service Date/Time: Saturday, July 30, 2016 07:57 - CONCLUSION: 1. No retroperitoneal hematoma. 2. Bibasilar pulmonary consolidations with small effusions. 3. Chronic pancreatitis. No acute inflammation observed. 4. 2 ventral hernias. 5. IVC filter. 6. 3.6 x 3.1 cm AAA. Omer Cheng Jr., MD Chest X-Ray 07/28/16599 Signed Impressions: Service Date/Time: Thursday, July 28, 2016 03:09 - CONCLUSION: No significant change. Hazy opacity remains in both lungs most consistent with congestive heart failure. Alonzo Bradshaw MD Chest X-Ray 07/28/16599 Signed Impressions: Service Date/Time: Thursday, July 28, 2016 03:09 - CONCLUSION: No significant change. Hazy opacity remains in both lungs most consistent with congestive heart failure. Alonzo Bradshaw MD Abdomen X-Ray 07/24/16 0749 Signed Impressions: Service Date/Time: July 08:28 - CONCLUSION: Air-filled bowel loops centrally but no obstruction seen. Uli Atkins MD Renal Ultrasound 07/20/16 Signed Impressions: Service Date/Time: Wednesday, July 20, 2016 14:32 - CONCLUSION: 1. No acute findings. Renal ultrasound unremarkable. Bladder was not well-visualized. Jose Martin Valderrama MD Lower Extremity Ultrasound 07/20/16 Signed Impressions: Service Date/Time: Wednesday, July 20, 2016 14:39 - CONCLUSION: Negative exam with no evidence of deep venous thrombosis. Alonzo Bradshaw MD Head CT 07/20/16 0000 Signed Impressions: Service Date/Time: Wednesday, July 20, 2016 18:21 - CONCLUSION: 1. No acute intracranial abnormalities. Mild mucosal thickening of the ethmoid air cells. Jose Martin Valderrama MD Chest CT 07/20/16 0000 Signed Impressions: Service Date/Time: Wednesday, July 20, 2016 11:28 - CONCLUSION: 1. Chronic scarring in the lung bases left greater than right. 2. No focal consolidation. 3. Bilateral adrenal masses left greater than right most consistent with adenomas. 4. Nonspecific bowel gas pattern noted in the upper abdomen with air-fluid levels in the small bowel. Alonzo Bradshaw MD Abdomen/Pelvis CT 07/20/16 0000 Signed Impressions: Service Date/Time: Wednesday, July 20, 2016 18:24 - CONCLUSION: 1. Lower abdominal ventral midline hernia containing loop of small bowel. Small bowel is mildly distended somewhat diffusely with fluid and air. Cannot exclude a low grade partial bowel obstruction in the area of herniation. 2. No abnormal fluid collections to suggest abscess. No free air or free fluid. 3. Basilar and dependent lung consolidation, left greater than right. Pneumonia could have this appearance. Small left effusion. 4. NG tip in stomach. Inferior vena cava filter present. Connelly catheter in bladder. Jose Martin Valderrama MD Physical Exam GENERAL: awake, following commands, on the vent, NAD SKIN: Cool and dry. No generalized rash. HEAD: Atraumatic. Normocephalic. No temporal or scalp tenderness. EYES: [place] conjunctivae. No scleral icterus. No injection or drainage. ENT: Nose without bleeding, or purulent drainage. Endotracheal tube is in the mouth, has moist mucosa. Edentulous NECK: Trachea midline. No JVD or lymphadenopathy. Supple, nontender, no meningeal signs. CARDIOVASCULAR: Regular rate and rhythm without murmurs, gallops, or rubs. RESPIRATORY: Decreased BS at bases GASTROINTESTINAL: Abdomen soft, globular, bowel sounds are present and normoactive. Not tender. No hepato-splenomegaly, or palpable masses. MUSCULOSKELETAL: Extremities without clubbing, cyanosis, or edema. . Feet warm. No joint effusion, or edema noted. NEUROLOGICAL: Awake following all commands LINE: LIJ and RIJ lines with no evidence of infection : Connelly in place, urine looks clear Assessment & Plan Remarks IMPRESSION Group A Strep sepsis, with shock, MOSF, present on admission, source is not established - ?primary bacteremia, ?respiratory - echo valves look ok - no other (+) BC except the ones on admission Respiratory failure, extubated 5/20, reintubated 08/03 - difficulty managing secretion PSAE PNA Renal failure, S/P CVVHD, on HD Thrombocytopenia due to sepsis, no DIC - resolved Known DM, HTN, PVD, CAD Diarrhea, abx associated Fevers, better - has PSAE in sputum RECOMMENDATION Monitor temps Continue Cefepime - should also Rx GAS Would give 14 days Rx for GAS Plan 7 days Cefepime for PSAE - give until 08/07 Follow new C/S and decide if any need to change course of Rx Monitor progress Spoke with [place],Ceci Ortega MD August 03, 2016 13:46
[2016-08-03] MEDS: CEFEPIME INJ 1,000 MG in SODIUM CHLORIDE 0.9% INJ 100 ML IV SCH (14:31)
[2016-08-03] MEDS: RESP: ACETYLCYSTEINE 10% 30 ML NEB NEB SCH ×2 (15:47→22:59)
[2016-08-04] VITALS (18 sets, daily range): BP systolic 124–152; BP diastolic 43–56; PULSE 80–104; RESP 19–30; TEMP 98.4–99.5; O2SAT 96–100
[2016-08-04] MEDS: niCARdipine INJ 50 MG in SODIUM CHLOR 0.9% 250 ML INJ 230 ML IV SCH ×3 (01:21→21:06)
[2016-08-04] MEDS: PROPOFOL 1000 MG/100 ML IV SCH ×2 (01:25→07:55)
[2016-08-04] MEDS: CHLORHEXIDINE GLUCONATE 2 % 1 PACK (2 CLOTHS) TOP SCH (03:20)
[2016-08-04] MEDS: RESP: ALBUTEROL 2.5 MG/IPRATROPIUM 0.5 MG NEB (SCH) NEB ×6 (03:45→23:28)
[2016-08-04] MEDS: METOPROLOL TARTRATE 25 MG TAB OG-TUBE SCH ×3 (05:07→20:40)
[2016-08-04] MEDS: INSULIN ASPART SUPPLEMENTAL SCALE SQ SCH ×4 (05:20→23:17)
[2016-08-04 05:56] LABS: AUTOMATED NEUTROPHIL # 4.1 TH/MM3 (1.8-7.7); BASOPHIL % 0.6 % (0.0-2.0); EOSINOPHIL # 0.2 TH/MM3 (0-0.4); EOSINOPHIL % 3.6 % (0.0-4.0); HEMATOCRIT 21.8 % (39.0-51.0); HEMO FLAGS DIFF FINAL; LYMPH % 15.4 % (9.0-44.0); LYMPHOCYTE # 0.9 TH/MM3 (1.0-4.8); MEAN CELL VOLUME 89.6 FL (80.0-100.0); MEAN CORPUSCULAR HEMOGLOBIN 30.2 PG (27.0-34.0); MEAN CORPUSCULAR HGB CONC 33.7 % (32.0-36.0); MONO % 6.9 % (0.0-8.0); NEUT % 73.5 % (16.0-70.0); PLATELET COUNT 238 TH/MM3 (150-450); RED BLOOD COUNT 2.43 MIL/MM3 (4.50-5.90); RED CELL DISTRIBUTION WIDTH 14.2 % (11.6-17.2); WHITE BLOOD COUNT 5.6 TH/MM3 (4.0-11.0)
[2016-08-04 06:29] LABS: BICARBONATE 25.4 MEQ/L (21.0-32.0); POTASSIUM 3.5 MEQ/L (3.5-5.1)
[2016-08-04 06:30] LABS: TOTAL BILIRUBIN ADULT 0.4 MG/DL (0.2-1.0)
[2016-08-04 06:31] LABS: CALCIUM-PROTEIN CORRECTED 7.2 MG/DL (8.5-10.1)
[2016-08-04 06:37] LABS: APTT (PATIENT) 42.7 SEC (24.3-30.1)
[2016-08-04] MEDS: RESP: ACETYLCYSTEINE 10% 30 ML NEB NEB SCH ×3 (07:54→23:28)
[2016-08-04] MEDS: ASPIRIN 81 MG CHEW TAB CHEW SCH (07:55)
[2016-08-04] MEDS: DOCUSATE SODIUM 100 MG CAP PO SCH ×2 (07:55→20:40)
[2016-08-04] MEDS: PANTOPRAZOLE SODIUM 40 MG VIAL IV SCH (07:56)
[2016-08-04] MEDS: METOCLOPRAMIDE HCL 10 MG/2 ML VIAL IV PUSH SCH ×3 (07:56→23:16)
[2016-08-04] MEDS: LACTOBACILLUS ACIDOPHILUS TAB PO SCH ×3 (07:57→18:46)
[2016-08-04] MEDS: CHLORHEXIDINE 0.12% (ORAL KIT) 15 ML CUP MT SCH ×2 (07:57→20:42)
[2016-08-04] MEDS: SODIUM CHLORIDE 0.9% FLUSH 10 ML FLUSH IVF SCH (07:57)
[2016-08-04] MEDS: SENNOSIDES SYRUP 8.8 MG/5 ML CUP OG-TUBE SCH (07:58)
[2016-08-04] MEDS: SODIUM CHLORIDE 0.9% FLUSH 10 ML FLUSH IV FLUSH SCH ×2 (08:10→20:41)
[2016-08-04] MEDS: INSULIN DETEMIR 100 UNITS/ML VIAL SQ SCH ×2 (08:11→20:40)
--- NOTE | 2016-08-04 11:13 | HHI.CCPN ---
Subjective Remarks/Hospital Course Late entry: This is progress note for 08/03. I saw the patient on 08/03 and had a long discussion with patient's family at his bedside yesterday. 71-year-old male. Date of admission 07/20/2016. Past records includes diabetes with neuropathy and nephropathy, hypertension, dyslipidemia, chronic pain syndrome, history of DVT/PE on chronic anticoagulation, peripheral vascular disease with history of AAA, and osteoporosis. Patient recently C [place] 07/06/16. Patient sick contacts would include neighbor with "vital illness. Patient is to [facility] today with acute onset of diarrhea, hypoglycemia and chills. Upon arrival, patient was noted be acutely hypoxic and required a nonrebreather mask. Patient denies pleuritic chest pain , abdominal pain but positive for nausea and diarrhea. CT chest revealed bilateral lower lobe scarring, bilateral adrenal adenomas a nonspecific bowel gas pattern. Chest x-ray revealed no significant findings. Lab work included a lactic acid elevated 7.7, white blood cell count 12,000 in acute kidney injury with a creatinine of 3.0. Baseline around 1.5-2. Troponin was slightly elevated 0.14. EKG is currently pending. Upon arrival to [facility], patient was extremely mottled with rates in the 40s. Patient was emergently intubated please see note and a left IJ central line was placed. CT of the head, abdomen and pelvis currently pending. 07/21 Patient is sedated with Diprivan and Fentanyl and intubated. On Levophed 22 mics, Vasopressin and bicarb drip. BC from 07/20: GPC all 4 bottles. 07/22 Patient remains sedated and intubated On Levophed 22 mics, vasopressin and bicarb drip. Awaiting to start CVVHD today 07/23: Remains sedated, orally intubated on mech ventilation. On Levophed 15 mics per minute and low-dose vasopressin for pressor support. On CRRT. 07/24: Remains sedated, orally intubated on mechanical ventilation. On Levophed 7 mics per minute and low-dose vasopressin for pressor support. CRRT was stopped at 1:30 AM due to Air in system and has now been resumed. 2 Amps of bicarbonate given for metabolic acidosis while CRRT held and bicarbonate drip was started back yesterday 07/25: Remains critically ill, on CVVH. Levoped 6 mics per minute. White count has normalized, making slight amount of urine. Showing some signs of progress 07/26: Remains sedated, orally intubated on mechanical ventilation. Remains on Levophed 3 mics per minute, vasopressin 0.03 mics per minute. CRRT continues. 07/27: Remains sedated, orally intubated on mechanical ventilation. Remains on Levophed 2 mics per minute, vasopressin 0.03 mics per minute. On CRRT. 07/28: Remains sedated, orally intubated on mechanical ventilation. Off Levophed. Remains on vasopressin. CRRT clotted off this morning and is on hold currently. Nephrology to decide regarding regular hemodialysis as patient is now off Levophed. 07/29: Sedated, arousable, orally intubated on mechanical ventilation. Off Levophed and vasopressin drips. To be initiated on hemodialysis today. Tolerating tube feeds. 07/30: Sedated, arousable, orally intubated on mechanical ventilation. Hemoglobin dropped to 6.9 this morning no evidence of melena or rectal bleeding noted. Stat CT abdomen pelvis did not reveal any evidence of retroperitoneal hematoma. Patient is maintaining his blood pressure and has not had any hypotension. 2 units PRBCs ordered this morning. 07/31: Sedated, arousable, orally intubated on mechanical ventilation. Underwent hemodialysis this morning. 08/01: Arousable off sedation, weakly grasps on command and wiggles toes. Remains orally intubated on mechanical ventilation. Tolerating tube feeds. 08/02: Awake off sedation, orally intubated on mechanical ventilation. Tolerating tube feeds. Awaiting hemodialysis today. 08/03: Patient failed extubation on 08/02 and required reintubation due to inability to mobilize secretions and worsening hypoxia about 8 hours following extubation. Sedated, orally intubated on mechanical ventilation. Started on Mucomyst and percussion therapy to mobilize secretions. Objective Afebrile, H rate 94/min, RR 20s, O2sat 100% on mechanical ventilation Intake and Output 08/03/16 08/03/16 08:00 16:00 Intake Total 596 ml 864 ml Output Total 150 ml 785 ml Balance 446 ml 79 ml Result Diagram: 08/04/16 0545 08/04/16 0545 Imaging Last 48 hours Impressions Chest X-Ray 08/02/16599 Signed Impressions: Service Date/Time: Tuesday, August 02, 2016 05:47 - CONCLUSION: 1. Support apparatus in satisfactory position. Bilateral mostly basilar airspace disease and effusions similar to July 30. Jose Martin Valderrama MD Last 24 hours Impressions Chest X-Ray 07/28/16599 Signed Impressions: Service Date/Time: Thursday, July 28, 2016 03:09 - CONCLUSION: No significant change. Hazy opacity remains in both lungs most consistent with congestive heart failure. Alonzo Bradshaw MD Last 24 hours Impressions Chest X-Ray 07/26/16599 Signed Impressions: Service Date/Time: Tuesday, July 26, 2016 04:56 - CONCLUSION: No significant change. Jovan Aldridge MD Last 48 hours Impressions Abdomen X-Ray 07/24/16 0749 Signed Impressions: Service Date/Time: July 08:28 - CONCLUSION: Air-filled bowel loops centrally but no obstruction seen. Uli Atkins MD Chest X-Ray 07/24/16599 Signed Impressions: Service Date/Time: July 05:36 - CONCLUSION: Unchanged bibasilar infiltrates. Omer Cheng Jr., MD Last Impressions Chest X-Ray 07/21/16 Signed Impressions: Service Date/Time: Thursday, July 21, 2016 22:13 - CONCLUSION: Satisfactory central line positioning. Worsening aeration. [place] Guillermo MD Renal Ultrasound 07/20/16 Signed Impressions: Service Date/Time: Wednesday, July 20, 2016 14:32 - CONCLUSION: 1. No acute findings. Renal ultrasound unremarkable. Bladder was not well-visualized. Jose Martin Valderrama MD Lower Extremity Ultrasound 07/20/16 Signed Impressions: Service Date/Time: Wednesday, July 20, 2016 14:39 - CONCLUSION: Negative exam with no evidence of deep venous thrombosis. Alonzo Bradshaw MD Head CT 07/20/16 Signed Impressions: Service Date/Time: Wednesday, July 20, 2016 18:21 - CONCLUSION: 1. No acute intracranial abnormalities. Mild mucosal thickening of the ethmoid air cells. Jose Martin Valderrama MD Chest CT 07/20/16 Signed Impressions: Service Date/Time: Wednesday, July 20, 2016 11:28 - CONCLUSION: 1. Chronic scarring in the lung bases left greater than right. 2. No focal consolidation. 3. Bilateral adrenal masses left greater than right most consistent with adenomas. 4. Nonspecific bowel gas pattern noted in the upper abdomen with air-fluid levels in the small bowel. Alonzo Bradshaw MD Abdomen/Pelvis CT 07/20/16 0000 Signed Impressions: Service Date/Time: Wednesday, July 20, 2016 18:24 - CONCLUSION: 1. Lower abdominal ventral midline hernia containing loop of small bowel. Small bowel is mildly distended somewhat diffusely with fluid and air. Cannot exclude a low grade partial bowel obstruction in the area of herniation. 2. No abnormal fluid collections to suggest abscess. No free air or free fluid. 3. Basilar and dependent lung consolidation, left greater than right. Pneumonia could have this appearance. Small left effusion. 4. NG tip in stomach. Inferior vena cava filter present. Connelly catheter in bladder. Jose Martin Valderrama MD Objective Remarks Drips: Propofol/fentanyl (off). GENERAL: Patient is 71 yo elderly male, intubated. Laying in bed, on mechanical ventilation SKIN: Warm and dry. HEAD: Normocephalic. EYES: Pallor present. No scleral icterus. No injection or drainage. NECK: Supple, trachea midline. No JVD or lymphadenopathy. CARDIOVASCULAR: Regular rate and rhythm without murmurs, gallops, or rubs. RESPIRATORY: Orally intubated on mechanical ventilation, Breath sounds decreased bilaterally at bases. Scattered rhonchi, no wheezing. GASTROINTESTINAL: Abdomen soft, non-tender, nondistended. Bowel sounds sluggish Neuro: Awake and alert off sedation, following commands, intubated. Moves both upper extremities weakly and wiggles toes bilaterally. Extremities: Warm bilaterally, Bilateral edema Line: Central Venous Catheter A/P Assessment and Plan Neuro/Psych: Peripheral neuropathy Chronic pain syndrome Propofol/fentanyl drips for sedation/analgesia while intubated. Ativan IV when necessary for sedation. Goal RASS -2 Daily sedation vacation 07/20 CT brain: No acute intracranial abnormalities. CV: Elevated troponin Hypertension Dyslipidemia Lactic acidosis Septic shock Peripheral vascular disease History of AAA Off Levophed/ vasopressin currently. Labetalol when necessary for SBP greater than 160 mmHg. Started Lopressor 12.5 mg via OG tube every 8 hourly on 07/31. Off Stress dose steroids- Hydrocortisone decreased to 50mg daily on 07/29 and stopped on 07/31 Continue with ASA daily Echo showed EF 35-40% Resp: Acute hypoxemic respiratory failure Tobaccoism On mechanical ventilation. Daily C Pap trials to decide extubation Ventilator bundle Bronchodilator therapy every 4 hours with albuterol every 2 hours. Added Mucomyst every 8 hours and chest percussion therapy PEEP +7 CT chest 07/20 revealed left greater than right basilar scarring. Bilateral adrenal adenomas. No focal consolidation GI: Tolerating tube feeds- Nepro with goal rate 40ml/hr. tube feeds held for possible extubation Reglan 5 mg IV every 8 hours Protonix for GI prophylaxis Colace/as needed Senokot for bowel regimen CT abdomen reviewed. Gen surgery- Dr Roman- no surgical interventions. : Strict intake output, monitor and replete electrolytes, follow BUN/creatinine. Started CRRT on 07/22, being followed by nephrology Dr. Magana. CRRT on hold since 07/28. Switched to hemodialysis on 07/29. Renal US: No acute findings Endo: Diabetes mellitus with nephropathy and neuropathy Bilateral adrenal adenoma Hyperglycemia Decreased Levemir to 10 units subcutaneously every 12 hourly on 07/31. On high dose sliding scale insulin on 07/29 for better glycemic control. Off steroids. 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 HIT screen negative. Platelets have normalized. Started heparin 5000 units subcutaneously every 12 hourly on 07/29, increased to 5000 units subcutaneously every 8 hourly on 07/31. Transfused 2 units PRBCs for drop in hemoglobin to 6.9 on 07/30. CT abdomen pelvis with no evidence of retroperitoneal hematoma. Most likely secondary to blood loss with CRRT regarding multiple times. Maintaining H&H. Advanced to full anticoagulation with heparin GTT on 08/01 ID: Strep Bacteremia Sepsis Pneumonia Continue with abx per ID - Unasyn switched to cefepime on 07/31 per ID due to pseudomonas in sputum. Clindamycin stopped 07/29, vanco x 1 dose on admission. Pertinent cultures BC 07/20- GPC, Group A Beta strep Urine cx 07/20 : neg Strep pneumonia nad Legionella urinary Ag negative Follow up on Sputum cx, BC 07/21, 07/22- NGTD 07/30 Sputum c/s with pseudomonas MSK: Osteoarthritis Holding vitamin D 1000 units by mouth daily. Access - Left IJ CVL placed 07/20, Art line placed 07/21 -Right IJ vascath placed 07/22 Prophylaxis - GI - Protonix - DVT - SCD/heparin SQ. Starting Heparin gtt 08/01 for full anticoagulation. - Doppler US LE negative for DVT Palliative care is following Patient is critically ill with resp failure, renal failure, septic shock and multiorgan injury. Prognosis guarded. Updated patient's on 08/03 regarding current clinical condition and plan of care and she voiced understanding. I have also previously explained possible need for tracheostomy and PEG tube. 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 Time to perform other separately billable procedures was not included in the critical care time. Roman Hicks MD August 04, 2016 11:13
--- NOTE | 2016-08-04 11:19 | HHI.CCPN ---
Subjective Remarks/Hospital Course This is progress note for 08/04. 71-year-old male. Date of admission 07/20/2016. Past records includes diabetes with neuropathy and nephropathy, hypertension, dyslipidemia, chronic pain syndrome, history of DVT/PE on chronic anticoagulation, peripheral vascular disease with history of AAA, and osteoporosis. Patient recently C [place] 07/06/16. Patient sick contacts would include neighbor with "vital illness. Patient is to [facility] today with acute onset of diarrhea, hypoglycemia and chills. Upon arrival, patient was noted be acutely hypoxic and required a nonrebreather mask. Patient denies pleuritic chest pain , abdominal pain but positive for nausea and diarrhea. CT chest revealed bilateral lower lobe scarring, bilateral adrenal adenomas a nonspecific bowel gas pattern. Chest x-ray revealed no significant findings. Lab work included a lactic acid elevated 7.7, white blood cell count 12,000 in acute kidney injury with a creatinine of 3.0. Baseline around 1.5-2. Troponin was slightly elevated 0.14. EKG is currently pending. Upon arrival to [facility], patient was extremely mottled with rates in the 40s. Patient was emergently intubated please see note and a left IJ central line was placed. CT of the head, abdomen and pelvis currently pending. 07/21 Patient is sedated with Diprivan and Fentanyl and intubated. On Levophed 22 mics, Vasopressin and bicarb drip. BC from 07/20: GPC all 4 bottles. 07/22 Patient remains sedated and intubated On Levophed 22 mics, vasopressin and bicarb drip. Awaiting to start CVVHD today 07/23: Remains sedated, orally intubated on mech ventilation. On Levophed 15 mics per minute and low-dose vasopressin for pressor support. On CRRT. 07/24: Remains sedated, orally intubated on mechanical ventilation. On Levophed 7 mics per minute and low-dose vasopressin for pressor support. CRRT was stopped at 1:30 AM due to Air in system and has now been resumed. 2 Amps of bicarbonate given for metabolic acidosis while CRRT held and bicarbonate drip was started back yesterday 07/25: Remains critically ill, on CVVH. Levoped 6 mics per minute. White count has normalized, making slight amount of urine. Showing some signs of progress 07/26: Remains sedated, orally intubated on mechanical ventilation. Remains on Levophed 3 mics per minute, vasopressin 0.03 mics per minute. CRRT continues. 07/27: Remains sedated, orally intubated on mechanical ventilation. Remains on Levophed 2 mics per minute, vasopressin 0.03 mics per minute. On CRRT. 07/28: Remains sedated, orally intubated on mechanical ventilation. Off Levophed. Remains on vasopressin. CRRT clotted off this morning and is on hold currently. Nephrology to decide regarding regular hemodialysis as patient is now off Levophed. 07/29: Sedated, arousable, orally intubated on mechanical ventilation. Off Levophed and vasopressin drips. To be initiated on hemodialysis today. Tolerating tube feeds. 07/30: Sedated, arousable, orally intubated on mechanical ventilation. Hemoglobin dropped to 6.9 this morning no evidence of melena or rectal bleeding noted. Stat CT abdomen pelvis did not reveal any evidence of retroperitoneal hematoma. Patient is maintaining his blood pressure and has not had any hypotension. 2 units PRBCs ordered this morning. 07/31: Sedated, arousable, orally intubated on mechanical ventilation. Underwent hemodialysis this morning. 08/01: Arousable off sedation, weakly grasps on command and wiggles toes. Remains orally intubated on mechanical ventilation. Tolerating tube feeds. 08/02: Awake off sedation, orally intubated on mechanical ventilation. Tolerating tube feeds. Awaiting hemodialysis today. 08/03: Patient failed extubation on 08/02 and required reintubation due to inability to mobilize secretions and worsening hypoxia about 8 hours following extubation. Sedated, orally intubated on mechanical ventilation. Started on Mucomyst and percussion therapy to mobilize secretions. 08/04: Remains sedated, orally intubated on mechanical ventilation. Significant pulmonary secretions being suctioned out following initiation of Mucomyst and percussion therapy per overnight CHICKEN TENDER. Tolerating tube feeds. Objective Vital Signs Date Time Temp Pulse Resp B/P Pulse Ox O2 Delivery O2 Flow Rate FiO2 08/04/16 10:00 94 08/04/16 08:33 100 40 08/04/16 08:00 98.4 19 152/54 08/02/16 09:25 Non-Rebreather 15 Intake and Output 08/03/16 08/03/16 08/04/16 08:00 16:00 00:00 Intake Total 596 ml 864 ml 777 ml Output Total 150 ml 785 ml 250 ml Balance 446 ml 79 ml 527 ml Result Diagram: 08/04/16 0545 08/04/16 0545 Imaging Last 48 hours Impressions Chest X-Ray 08/02/16 1421 Signed Impressions: Service Date/Time: Tuesday, August 02, 2016 14:42 - CONCLUSION: No significant interval change in bilateral pulmonary opacity. Castillo Roldan MD Last 48 hours Impressions Chest X-Ray 08/02/16 0600 Signed Impressions: Service Date/Time: Tuesday, August 02, 2016 05:47 - CONCLUSION: 1. Support apparatus in satisfactory position. Bilateral mostly basilar airspace disease and effusions similar to July 30. Jose Martin Valderrama MD Last 24 hours Impressions Chest X-Ray 07/28/16 0600 Signed Impressions: Service Date/Time: Thursday, July 28, 2016 03:09 - CONCLUSION: No significant change. Hazy opacity remains in both lungs most consistent with congestive heart failure. Alonzo Bradshaw MD Last 24 hours Impressions Chest X-Ray 07/26/16 0600 Signed Impressions: Service Date/Time: Tuesday, July 26, 2016 04:56 - CONCLUSION: No significant change. Jovan Aldridge MD Last 48 hours Impressions Abdomen X-Ray 07/24/16 0749 Signed Impressions: Service Date/Time: July 08:28 - CONCLUSION: Air-filled bowel loops centrally but no obstruction seen. Uli Atkins MD Chest X-Ray 07/24/16 0600 Signed Impressions: Service Date/Time: July 05:36 - CONCLUSION: Unchanged bibasilar infiltrates. Omer Cheng Jr., MD Last Impressions Chest X-Ray 07/21/16 0000 Signed Impressions: Service Date/Time: Thursday, July 21, 2016 22:13 - CONCLUSION: Satisfactory central line positioning. Worsening aeration. [place] Guillermo MD Renal Ultrasound 07/20/16 0000 Signed Impressions: Service Date/Time: Wednesday, July 20, 2016 14:32 - CONCLUSION: 1. No acute findings. Renal ultrasound unremarkable. Bladder was not well-visualized. Jose Martin Valderrama MD Lower Extremity Ultrasound 07/20/16 Signed Impressions: Service Date/Time: Wednesday, July 20, 2016 14:39 - CONCLUSION: Negative exam with no evidence of deep venous thrombosis. Alonzo Bradshaw MD Head CT 07/20/16 Signed Impressions: Service Date/Time: Wednesday, July 20, 2016 18:21 - CONCLUSION: 1. No acute intracranial abnormalities. Mild mucosal thickening of the ethmoid air cells. Jose Martin Valderrama MD Chest CT 07/20/16 Signed Impressions: Service Date/Time: Wednesday, July 20, 2016 11:28 - CONCLUSION: 1. Chronic scarring in the lung bases left greater than right. 2. No focal consolidation. 3. Bilateral adrenal masses left greater than right most consistent with adenomas. 4. Nonspecific bowel gas pattern noted in the upper abdomen with air-fluid levels in the small bowel. Alonzo Bradshaw MD Abdomen/Pelvis CT 07/20/16 Signed Impressions: Service Date/Time: Wednesday, July 20, 2016 18:24 - CONCLUSION: 1. Lower abdominal ventral midline hernia containing loop of small bowel. Small bowel is mildly distended somewhat diffusely with fluid and air. Cannot exclude a low grade partial bowel obstruction in the area of herniation. 2. No abnormal fluid collections to suggest abscess. No free air or free fluid. 3. Basilar and dependent lung consolidation, left greater than right. Pneumonia could have this appearance. Small left effusion. 4. NG tip in stomach. Inferior vena cava filter present. Connelly catheter in bladder. Jose Martin Valderrama MD Objective Remarks Drips: Propofol GENERAL: Patient is 71 yo elderly male, intubated. Laying in bed, on mechanical ventilation SKIN: Warm and dry. HEAD: Normocephalic. EYES: Pallor present. No scleral icterus. No injection or drainage. NECK: Supple, trachea midline. No JVD or lymphadenopathy. CARDIOVASCULAR: Regular rate and rhythm without murmurs, gallops, or rubs. RESPIRATORY: Orally intubated on mechanical ventilation, Breath sounds decreased bilaterally at bases. Scattered rhonchi, no wheezing. GASTROINTESTINAL: Abdomen soft, non-tender, nondistended. Bowel sounds sluggish Neuro: Sedated, orally intubated, following commands. Moves both upper extremities weakly and wiggles toes bilaterally. Extremities: Warm bilaterally, Bilateral edema Line: Central Venous Catheter A/P Assessment and Plan Neuro/Psych: Peripheral neuropathy Chronic pain syndrome Propofol drips for sedation/analgesia while intubated. Ativan IV when necessary for sedation. Goal RASS -2 Daily sedation vacation 07/20 CT brain: No acute intracranial abnormalities. CV: Elevated troponin Hypertension Dyslipidemia Lactic acidosis Septic shock Peripheral vascular disease History of AAA Off Levophed/ vasopressin currently. Labetalol when necessary for SBP greater than 160 mmHg. Started Lopressor 12.5 mg via OG tube every 8 hourly on 07/31. Off Stress dose steroids- Hydrocortisone decreased to 50mg daily on 07/29 and stopped on 07/31 Continue with ASA daily Echo showed EF 35-40% Resp: Acute hypoxemic respiratory failure Tobaccoism On mechanical ventilation. Daily C Pap trials to decide extubation Ventilator bundle. Bronchodilator therapy every 4 hours with albuterol every 2 hours. Mucomyst every 8 hours and chest percussion therapy PEEP +7 CT chest 07/20 revealed left greater than right basilar scarring. Bilateral adrenal adenomas. No focal consolidation GI: Tolerating tube feeds- Nepro with goal rate 40ml/hr. Reglan 5 mg IV every 8 hours Protonix for GI prophylaxis Colace/as needed Senokot for bowel regimen CT abdomen reviewed. Gen surgery- Dr Roman- no surgical interventions. : Strict intake output, monitor and replete electrolytes, follow BUN/creatinine. Started CRRT on 07/22, being followed by nephrology Dr. Magana. CRRT on hold since 07/28. Switched to hemodialysis on 07/29. Renal US: No acute findings Endo: Diabetes mellitus with nephropathy and neuropathy Bilateral adrenal adenoma Hyperglycemia Decreased Levemir to 10 units subcutaneously every 12 hourly on 07/31. On high dose sliding scale insulin on 07/29 for better glycemic control. Off steroids. 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 HIT screen negative. Platelets have normalized. Started heparin 5000 units subcutaneously every 12 hourly on 07/29, increased to 5000 units subcutaneously every 8 hourly on 07/31. Transfused 2 units PRBCs for drop in hemoglobin to 6.9 on 07/30. CT abdomen pelvis with no evidence of retroperitoneal hematoma. Most likely secondary to blood loss with CRRT regarding multiple times. Maintaining H&H. Advanced to full anticoagulation with heparin GTT on 08/01 ID: Strep Bacteremia Sepsis Pneumonia Continue with abx per ID - Unasyn switched to cefepime on 07/31 per ID due to pseudomonas in sputum. Clindamycin stopped 07/29, vanco x 1 dose on admission. Pertinent cultures BC 07/20- GPC, Group A Beta strep Urine cx 07/20 : neg Strep pneumonia nad Legionella urinary Ag negative Follow up on Sputum cx, BC 07/21, 07/22- NGTD 07/30 Sputum c/s with pseudomonas MSK: Osteoarthritis Holding vitamin D 1000 units by mouth daily. Access - Left IJ CVL placed 07/20, Art line placed 07/21 -Right IJ vascath placed 07/22 Prophylaxis - GI - Protonix - DVT - SCD/heparin SQ. Starting Heparin gtt 08/01 for full anticoagulation. - Doppler US LE negative for DVT Palliative care is following Patient is critically ill with resp failure, renal failure, septic shock and multiorgan injury. Prognosis guarded. Updated patient's on 08/03 regarding current clinical condition and plan of care and she voiced understanding. I have also previously explained possible need for tracheostomy and PEG tube. D/W CHICKEN TENDER Discussed with Dr. Conklin from palliative care Critical Care: The total critical care time was 40 minutes. Time to perform other separately billable procedures was not included in the critical care time. Roman Hicks MD August 04, 2016 11:19
--- NOTE | 2016-08-04 11:42 | HHI.HCPN ---
Reason for visit a. To assist with evaluation and management of symptoms including: dyspnea; pain; encephalopathy b. To assist medical decision maker(s) with: better understanding of current medical conditions; weighing benefits/burdens of medical treatment options; making medical treatment decisions. . Subjective/Interval History INTERVAL NOTE Mr. Lemus remains in the SICU, mildly sedated and intubated on mechanical ventilator. Patient had done well on CPAP trials, was extubated over the weekend, but required re-intubation primarily due to secretion management issues. No other significant change. At time of my visit, patient has his eyes open. He shakes his head "no" when I ask him about pain. There has been no opiate use since 08/01/16. He is able to follow some simple commands. is at bedside. I spoke with Dr. Darek Hicks this AM. Given no setbacks, he plans to give another extubation attempt in a day or two. He discussed this with family. They have seen the patient improve and want to pursue aggressive care even if this means tracheostomy. Dr. Hicks also had a chance to see the patient when he was extubated. He was verbal, could follow simple commands, could identify his , but did not appear cognitively sharp enough to make his own health care decisions. Lab work :. = WBC: WBC 5.6 ; Hg 7.3 ; Plt 238 = Corrected Ca++ 7.2 = BUN: 80 creatinine 5.73, GFR 10 = LFTs OK = Total protein: 7.5, albumin 1.4 Sputum cx from 07/30/16 shows Pseudomonas CXR 08/02/16 --> no significant change in bilateral pulmonary opacity Afebrile. VS stable . Family/friend interactions is at bedside. She has become increasingly optimistic watching her wake up and become interactive. She continues to desire aggressive care for him. She understands the road ahead will be challenging. She reports she is taking care of herself. Two of the daughters have returned to their homes. . Advance Directives Living Will: Completed, but not made available Health Care Surrogate: Completed, but not made available Durable Power of State Appellate Clerk: Never completed Advance Directive Specifics Date completed: will bring in the advance directive. Date of completion is unknown at this time. . Health Care Surrogate(s): will bring in a copy of the advance directive. She reports that she is listed as the designated health care surrogate. . Documented care wishes: will bring in a copy of the advance directive. At this point we do not have any written documentation of the patient's health care goals/preferences. . Objective Vital Signs Date Time Temp Pulse Resp B/P Pulse Ox O2 Delivery O2 Flow Rate FiO2 08/04/16 10:00 94 08/04/16 08:33 100 40 08/04/16 08:30 40 08/04/16 08:00 40 08/04/16 08:00 88 08/04/16 08:00 98.4 88 19 152/54 100 08/04/16 07:55 100 40 08/04/16 06:00 80 08/04/16 04:00 98.8 90 19 124/48 99 08/04/16 04:00 90 08/04/16 04:00 40 08/04/16 02:00 102 08/04/16 01:10 98 40 08/04/16 00:00 99.0 96 19 148/56 98 08/04/16 00:00 96 08/04/16 00:00 40 08/03/16 22:09 98 40 08/03/16 22:00 80 08/03/16 20:00 40 08/03/16 20:00 98.8 110 33 142/50 96 08/03/16 20:00 110 08/03/16 19:15 98 40 08/03/16 18:00 99 08/03/16 16:00 98.7 89 15 147/69 100 140/47 08/03/16 16:00 40 08/03/16 16:00 89 08/03/16 15:49 98 40 08/03/16 14:00 84 08/03/16 12:00 40 08/03/16 12:00 98.9 98 32 154/69 97 150/48 08/03/16 12:00 102 08/03/16 11:26 95 40 Intake & Output 08/04/16 08/04/16 06:59 18:59 Intake Total 1657 ml Output Total 510 ml 0 ml Balance 1147 ml 0 ml Intake IV Total 1002 ml Tube Feeding 495 ml Tube Irrigant 160 ml Output Urine Total 360 ml Stool Total 150 ml Tube Feeding Residual Discard 0 ml . Physical Exam CONSTITUTIONAL/GENERAL: This is an overweight male intubated on mechanical ventilator. Eyes are open; shakes his head "no" when asked about pain. Can follow simple commands. No evidence of distress. TUBES/LINES/DRAINS: Orotracheal tube; orogastric tube; left internal jugular central line; vas-cath right internal jugular; SCDs; Connelly catheter; rectal tube SKIN: No jaundice, rashes, or lesions. No wounds seen anteriorly. Skin temperature normal. EYES: Pupils equal and round. No scleral icterus. No injection or drainage. Fundi not examined. ENT: Appears top hear me fine. Nose without bleeding or purulent drainage. No oropharyngeal abnormalities seen around orotracheal and orogastric tubes. NECK: Trachea midline. CARDIOVASCULAR: Regular rhythm without murmurs, gallops, or rubs. No JVD. RESPIRATORY/CHEST: Orally intubated on mechanical ventilator. Breath sounds equal bilaterally but air movement diminished at bases. No audible ronchi/ wheezes at time of my visit. GASTROINTESTINAL: Abdomen soft, non-tender, slightly distended. REctal tube in place with dark stool in bag. GENITOURINARY: Without palpable bladder distension. Connelly catheter in place. MUSCULOSKELETAL: Extremities without clubbing, cyanosis. 1+ hand edema. No mottling. NEUROLOGICAL: Eyes open. Shakes/nods head appropriately to questions. Follows simple commands. Moves all extremities. PSYCHIATRIC: Difficult to assess for anxiety/depression. No obvious psychotic process. . . Diagnostic Tests Laboratory Laboratory Tests Test 08/01/16 08/01/16 08/01/16 08/02/16 15:25 15:29 20:55 03:00 Prothrombin Time 12.1 SEC (9.8-11.6) Prothromb Time International 1.1 RATIO Ratio Activated Partial 30.5 SEC 35.4 SEC 37.1 SEC Thromboplast Time (24.3-30.1) (24.3-30.1) (24.3-30.1) White Blood Count 10.3 TH/MM3 (4.0-11.0) Red Blood Count 2.90 MIL/MM3 (4.50-5.90) Hemoglobin 8.8 GM/DL (13.0-17.0) Hematocrit 25.7 % (39.0-51.0) Mean Corpuscular Volume 88.4 FL (80.0-100.0) Mean Corpuscular Hemoglobin 30.2 PG (27.0-34.0) Mean Corpuscular Hemoglobin 34.2 % Concent (32.0-36.0) Red Cell Distribution Width 14.8 % (11.6-17.2) Platelet Count 223 TH/MM3 (150-450) Mean Platelet Volume 9.5 FL (7.0-11.0) Neutrophils (%) (Auto) 86.1 % (16.0-70.0) Lymphocytes (%) (Auto) 7.5 % (9.0-44.0) Monocytes (%) (Auto) 4.3 % (0.0-8.0) Eosinophils (%) (Auto) 1.0 % (0.0-4.0) Basophils (%) (Auto) 1.1 % (0.0-2.0) Neutrophils # (Auto) 8.8 TH/MM3 (1.8-7.7) Lymphocytes # (Auto) 0.8 TH/MM3 (1.0-4.8) Monocytes # (Auto) 0.4 TH/MM3 (0-0.9) Eosinophils # (Auto) 0.1 TH/MM3 (0-0.4) Basophils # (Auto) 0.1 TH/MM3 (0-0.2) CBC Comment DIFF FINAL Differential Comment Sodium Level 142 MEQ/L (136-145) Potassium Level 3.5 MEQ/L (3.5-5.1) Chloride Level 105 MEQ/L (98-107) Carbon Dioxide Level 24.6 MEQ/L (21.0-32.0) Anion Gap 12 MEQ/L (5-15) Blood Urea Nitrogen 72 MG/DL (7-18) Creatinine 5.61 MG/DL (0.60-1.30) Estimat Glomerular Filtration 10 ML/MIN (>89) Rate Random Glucose 170 MG/DL (74-106) Calcium Level 7.6 MG/DL (8.5-10.1) Total Bilirubin 0.5 MG/DL (0.2-1.0) Aspartate Amino Transf 27 U/L (15-37) (AST/SGOT) Alanine Aminotransferase 32 U/L (12-78) (ALT/SGPT) Alkaline Phosphatase 83 U/L (45-117) Total Protein 8.0 GM/DL (6.4-8.2) Albumin 1.5 GM/DL (3.4-5.0) Test 08/02/16 08/02/16 08/02/16 08/03/16 09:15 17:15 23:00 06:30 Activated Partial 38.4 SEC 65.7 SEC 44.3 SEC 40.4 SEC Thromboplast Time (24.3-30.1) (24.3-30.1) (24.3-30.1) (24.3-30.1) White Blood Count 7.7 TH/MM3 (4.0-11.0) Red Blood Count 2.73 MIL/MM3 (4.50-5.90) Hemoglobin 8.2 GM/DL (13.0-17.0) Hematocrit 24.1 % (39.0-51.0) Mean Corpuscular Volume 88.1 FL (80.0-100.0) Mean Corpuscular Hemoglobin 30.1 PG (27.0-34.0) Mean Corpuscular Hemoglobin 34.1 % Concent (32.0-36.0) Red Cell Distribution Width 14.9 % (11.6-17.2) Platelet Count 245 TH/MM3 (150-450) Mean Platelet Volume 9.4 FL (7.0-11.0) Neutrophils (%) (Auto) 78.8 % (16.0-70.0) Lymphocytes (%) (Auto) 10.4 % (9.0-44.0) Monocytes (%) (Auto) 6.1 % (0.0-8.0) Eosinophils (%) (Auto) 3.2 % (0.0-4.0) Basophils (%) (Auto) 1.5 % (0.0-2.0) Neutrophils # (Auto) 6.0 TH/MM3 (1.8-7.7) Lymphocytes # (Auto) 0.8 TH/MM3 (1.0-4.8) Monocytes # (Auto) 0.5 TH/MM3 (0-0.9) Eosinophils # (Auto) 0.2 TH/MM3 (0-0.4) Basophils # (Auto) 0.1 TH/MM3 (0-0.2) CBC Comment DIFF FINAL Differential Comment Test 08/03/16 08/04/16 08:25 05:45 Sodium Level 140 MEQ/L 142 MEQ/L (136-145) (136-145) Potassium Level 3.4 MEQ/L 3.5 MEQ/L (3.5-5.1) (3.5-5.1) Chloride Level 102 MEQ/L 103 MEQ/L (98-107) (98-107) Carbon Dioxide Level 25.7 MEQ/L 25.4 MEQ/L (21.0-32.0) (21.0-32.0) Anion Gap 12 MEQ/L (5-15) 14 MEQ/L (5-15) Blood Urea Nitrogen 62 MG/DL (7-18) 80 MG/DL (7-18) Creatinine 5.17 MG/DL 5.73 MG/DL (0.60-1.30) (0.60-1.30) Estimat Glomerular Filtration 11 ML/MIN (>89) 10 ML/MIN (>89) Rate Random Glucose 144 MG/DL 166 MG/DL (74-106) (74-106) Calcium Level 7.6 MG/DL 7.3 MG/DL (8.5-10.1) (8.5-10.1) Phosphorus Level 6.4 MG/DL (2.5-4.9) Magnesium Level 2.5 MG/DL (1.5-2.5) Total Bilirubin 0.4 MG/DL 0.4 MG/DL (0.2-1.0) (0.2-1.0) Aspartate Amino Transf 22 U/L (15-37) 21 U/L (15-37) (AST/SGOT) Alanine Aminotransferase 32 U/L (12-78) 28 U/L (12-78) (ALT/SGPT) Alkaline Phosphatase 80 U/L (45-117) 70 U/L (45-117) Total Protein 8.5 GM/DL 7.5 GM/DL (6.4-8.2) (6.4-8.2) Albumin 1.6 GM/DL 1.4 GM/DL (3.4-5.0) (3.4-5.0) White Blood Count 5.6 TH/MM3 (4.0-11.0) Red Blood Count 2.43 MIL/MM3 (4.50-5.90) Hemoglobin 7.3 GM/DL (13.0-17.0) Hematocrit 21.8 % (39.0-51.0) Mean Corpuscular Volume 89.6 FL (80.0-100.0) Mean Corpuscular Hemoglobin 30.2 PG (27.0-34.0) Mean Corpuscular Hemoglobin 33.7 % Concent (32.0-36.0) Red Cell Distribution Width 14.2 % (11.6-17.2) Platelet Count 238 TH/MM3 (150-450) Mean Platelet Volume 9.0 FL (7.0-11.0) Neutrophils (%) (Auto) 73.5 % (16.0-70.0) Lymphocytes (%) (Auto) 15.4 % (9.0-44.0) Monocytes (%) (Auto) 6.9 % (0.0-8.0) Eosinophils (%) (Auto) 3.6 % (0.0-4.0) Basophils (%) (Auto) 0.6 % (0.0-2.0) Neutrophils # (Auto) 4.1 TH/MM3 (1.8-7.7) Lymphocytes # (Auto) 0.9 TH/MM3 (1.0-4.8) Monocytes # (Auto) 0.4 TH/MM3 (0-0.9) Eosinophils # (Auto) 0.2 TH/MM3 (0-0.4) Basophils # (Auto) 0.0 TH/MM3 (0-0.2) CBC Comment DIFF FINAL Differential Comment Activated Partial 42.7 SEC Thromboplast Time (24.3-30.1) Protein Corrected Calcium 7.2 MG/DL (8.5-10.1) . Result Diagram: 08/04/16 0545 08/04/16 0545 Microbiology Microbiology Date/Time Procedure Status Source Growth 08/03/16 08:20 Gram Stain - Final Resulted Sputum Endotracheal 08/03/16 08:20 Sputum Culture Resulted Sputum Endotracheal Pending . Imaging Last Impressions Chest X-Ray 08/02/16 1421 Signed Impressions: Service Date/Time: Tuesday, August 02, 2016 14:42 - CONCLUSION: No significant interval change in bilateral pulmonary opacity. Castillo Roldan MD Abdomen/Pelvis CT 07/30/16 0000 Signed Impressions: Service Date/Time: Saturday, July 30, 2016 07:57 - CONCLUSION: 1. No retroperitoneal hematoma. 2. Bibasilar pulmonary consolidations with small effusions. 3. Chronic pancreatitis. No acute inflammation observed. 4. 2 ventral hernias. 5. IVC filter. 6. 3.6 x 3.1 cm AAA. Omer Cheng Jr., MD Abdomen X-Ray 07/24/16 0749 Signed Impressions: Service Date/Time: July 08:28 - CONCLUSION: Air-filled bowel loops centrally but no obstruction seen. Uli Atknis MD Renal Ultrasound 07/20/16 0000 Signed Impressions: Service Date/Time: Wednesday, July 20, 2016 14:32 - CONCLUSION: 1. No acute findings. Renal ultrasound unremarkable. Bladder was not well-visualized. Jose Martin Valderrama MD Lower Extremity Ultrasound 07/20/16 0000 Signed Impressions: Service Date/Time: Wednesday, July 20, 2016 14:39 - CONCLUSION: Negative exam with no evidence of deep venous thrombosis. Alonzo Bradshaw MD Head CT 07/20/16 0000 Signed Impressions: Service Date/Time: Wednesday, July 20, 2016 18:21 - CONCLUSION: 1. No acute intracranial abnormalities. Mild mucosal thickening of the ethmoid air cells. Jose Martin Valderrama MD Chest CT 07/20/16 0000 Signed Impressions: Service Date/Time: Wednesday, July 20, 2016 11:28 - CONCLUSION: 1. Chronic scarring in the lung bases left greater than right. 2. No focal consolidation. 3. Bilateral adrenal masses left greater than right most consistent with adenomas. 4. Nonspecific bowel gas pattern noted in the upper abdomen with air-fluid levels in the small bowel. Alonzo Bradshaw MD . Procedures * Intubation/mechanical ventilation 07/20/16 * Left internal jugular central line placement 07/20/16 * Right jugular vas-cath placement * CRRT * Extubated and re-intubated 08/02/16 . Assessment and Plan Disease Oriented Problem List: (1) Severe sepsis with acute organ dysfunction Comment: Blood cx growing out Group A strep . (2) Respiratory failure (3) Ventilator associated pneumonia Comment: Sputum cx of 07/30/16 growing Pseudomonas. (4) Lactic acidosis Comment: Improved -- but metabolic acidosis persists with elevated anion gap. . (5) Hypoxia (6) Peripheral vascular disease (7) Hypertension (8) Dyslipidemia (9) Chronic anticoagulation (10) Elevated troponin (11) History of DVT (deep vein thrombosis) (12) Acute kidney injury Comment: Requiring dialysis. . (13) Thrombocytopenia Comment: Resolved. (14) Metabolic acidosis Comment: This has remained profound and persistent in spite of normalization of lactic acid for several days. Now improved. . . Symptom Scale: (1) Pain 0-10 Scale: Unable to quantify Comment: Patient has chronic pain mostly in the lower extremities from a combination of peripheral vascular disease and diabetic neuropathy. He had been prescribed opiates in the past but normally takes no analgesics because he doesn't like the side effects. Additional sources of discomfort at this time would include prolonged bedbound status; orotracheal/orogastric intubations; Connelly catheter; vascular access lines. Patient denies pain today. . . (2) Dyspnea 0-10 Scale: Unable to quantify (dyspnea seems managed with mechanical ventilation.) Comment: Controlled on ventilator. Now tolerating CPAP trials. . . (3) Encephalopathy 0-10 Scale: Unable to quantify Comment: Encephalopathy is most likely multifactorial and in large part due to the septic shock. Based on the history, it is unlikely that the duration of hypoglycemia or hypotension would've caused any type of permanent damage. There is no prior history of underlying dementia. Patient now improving slowly. . Pertinent Non-Medical Issues Psychosocial: Patient is well supported by his spouse and daughter who live locally, many friends who live locally, and 2 daughters who had flown in from [place] and [place]. Spiritual: Patient was raised in a Muslim home. 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 Rastafarian and spirituality have not played a large part in his life of late. Legal: reports the patient has completed an advanced directive. She will bring a copy into scanned into the medical record. Ethical issues impacting care: Patient is currently incapacitated to make his own health care decisions. It remains uncertain if he will regain capacity to do so. . Important Contacts == Spouse (Alysia Lemus) [phone] == Daughter (Adenike) [phone] . Prognosis Though Mr Lemus has been quite critically ill with septic shock and multiple organs being affected, it is also important to note that in spite of his underlying chronic illnesses , his functional status was reasonably good prior to becoming acutely ill so suddenly. Family, understandably, want to give him a chance to see if he is able to get through this acute period. He had a similar episode of severe illness approximately 10 years ago after being hospitalized with a ruptured appendix. Family has witnessed him being able to recover from that. Patient now showing some signs of recovery. Family has become more optimistic. There will be a challenging road ahead of him but goals at this point remain aggressive. . . . Code Status: Full Code Plan == Code Status : FULL CODE == Decision Making: The patient is currently incapacitated to make his own health care decisions. He is improving, however, and there is certainly a chance he will be able to make his own health care decision in the future. will bring in the patient's completed advanced directive. She informs me that she is listed as the designated health care surrogate. If there is no advanced directive, would still be asked to serve as proxy decision-maker under the hierarchy of proxy's in the [place] statutes. == Goals of medical treatment: The patient's spouse wants ongoing and full aggressive care for the time being. They have seen him improve, become interactive, and therefore want everything done -- including tracheostomy if deemed necessary. Family all resuscitation attempts tried at this point in time. On the other hand, family reports that the patient would not want to be maintained on life support if there is no hope for meaningful recovery. is even uncertain if patient would ever agree to ongoing hemodialysis. If the patient declines in spite of aggressive care will probably want to reconsider goals. == Pain: As noted above, patient has a number of different pain syndromes. Patient is able to indicate that he is not having pain at time of my visit. PRN [place] and Morphine are available, but have not been utilized since . Patient showing no signs or symptoms of nonverbal pain on exam. == Encephalopathy: Encephalopathy is most likely multifactorial and in large part due to the septic shock. Based on the history, it is unlikely that the duration of hypoglycemia or hypotension would've caused any type of permanent damage. There is no prior history of underlying dementia. There has been slow improvement in cognitive function over the last days. == Dyspnea: Dyspnea currently being controlled with the ventilator. Now tolerating CPAP trials . Secretions may be the issue that prevents another extubation trial again in the near future. == is bringing in a copy of the patient's advanced directive for us to scan into the electronic medical record. Has not arrived yet. Have asked nursing staff to request this as well. == Palliative care will continue to follow to assist with symptom management and to further clarify goals of medical treatment as the clinical course evolves. . Attestation To help prompt me to consider important information that might be impacting today's encounter and assessment, information from prior notes written by myself or my colleagues may have been "brought forward" into today's note. My signature on this note, however, is an attestation that I personally performed the exam, history, and/or decision-making noted today, and, unless otherwise indicated, the interactions with patient, family, and staff as well as the review of records all occurred today. I also attest that the listed assessment and stated plan reflect my best clinical judgment today based on the combination of historical information, prior notes, and today's exam/ interactions. When time spent is documented, it refers only to time spent today by the signer, or if indicated, combined time spent today by collaborating physician/nurse practitioner. . Jameson Conklin MD August 04, 2016 11:42
[2016-08-04] MEDS: HEPARIN-D5W INJ 250 ML IV SCH ×2 (11:56→21:07)
[2016-08-04] MEDS: CEFEPIME INJ 1,000 MG in SODIUM CHLORIDE 0.9% INJ 100 ML IV SCH (15:22)
[2016-08-04] MEDS ORDERED: SUCCINYLCHOLINE CHLORIDE 200 MG/10 ML VIAL ONE (16:18)
--- NOTE | 2016-08-04 16:19 | HHI.NPPN ---
Subjective History of Present Illness 71-year-old male with past medical history of diabetes mellitus, hypertension, ischemic heart disease, peripheral neuropathy, chronic kidney disease, history of deep vein thrombosis, hyperlipidemia was brought to the hospital because of generalized weakness, confusion and vomiting and diarrhea. I was called to see the patient because of elevated BUN and creatinine. The patient has history of acute kidney injury in the past and chronic kidney disease. His creatinine was around 1.2 to 1.4, this was in 2012. Additional Remarks Patient remain intubated, awake, now on CPAP, not in distress. Review of Systems General Constitutional: Fatigue Respiratory Lungs: SOB, Cough, Sputum, Wheeze Objective Data Data 08/03/16 08/04/16 18:59 06:59 Intake Total 864 ml 1657 ml Output Total 785 ml 510 ml Balance 79 ml 1147 ml Intake IV Total 500 ml 1002 ml Tube Feeding 274 ml 495 ml Tube Irrigant 90 ml 160 ml Output Urine Total 225 ml 360 ml Stool Total 560 ml 150 ml Vital Signs Date Time Temp Pulse Resp B/P Pulse Ox O2 Delivery O2 Flow Rate FiO2 08/04/16 14:00 90 08/04/16 12:13 100 40 08/04/16 12:00 40 08/04/16 12:00 98.7 93 27 134/50 100 08/04/16 12:00 92 08/04/16 10:00 94 08/04/16 08:33 100 40 08/04/16 08:30 40 08/04/16 08:00 40 08/04/16 08:00 88 08/04/16 08:00 98.4 88 19 152/54 100 08/04/16 07:55 100 40 08/04/16 06:00 80 08/04/16 04:00 98.8 90 19 124/48 99 08/04/16 04:00 90 08/04/16 04:00 40 08/04/16 02:00 102 08/04/16 01:10 98 40 08/04/16 00:00 99.0 96 19 148/56 98 08/04/16 00:00 96 08/04/16 00:00 40 08/03/16 22:09 98 40 08/03/16 22:00 80 08/03/16 20:00 40 08/03/16 20:00 98.8 110 33 142/50 96 08/03/16 20:00 110 08/03/16 19:15 98 40 08/03/16 18:00 99 -: 08/04/16 0545 08/04/16 0545 Physical Exam General Appearance: No Acute Distress, Anxious Eyes Eye Exam: Pupils Equal Throat Throat Exam: Oral Mucosa [place] & Moist Neck Neck Exam: Neck Supple Pulmonary Resp Exam: Rhonchi, Decreased Bases, Diminished Breath Sounds, Poor Inspiratory Effort Cardiology CV Exam: Regular, Normal Sinus Rhythm Gastrointestinal/Abdomen GI Exam: Soft, Non-Tender, Bowel Sounds Present Extremeties Extremities Exam: Trace Edema Neurologic Neuro Exam: Alert, Awake Psychiatric Psych Exam: Appropriate Responses Assessment/Plan Assessment Summary: ADALID/Acute Renal Failure Electrolyte Assessment: Metabolic Acidosis Problem List: (1) Diabetes mellitus with neuropathy (2) Leukocytosis (3) Peripheral vascular disease (4) Severe sepsis with acute organ dysfunction (5) History of DVT (deep vein thrombosis) (6) Hypoxia (7) Acidosis (8) Lactic acidosis Plan Patient has some improvement in the urine out put. BP is has improved off pressors. BC results noted, seen by ID. On Unasyn and Flagyl, ID following. Repeat BC negative. CPK also elevated, but improving. Off pressors and the BP is stable. Creatinine still elevated, HD to continue TTS and as needed. Weaning as per CCM. D/W the at bed side. Problem Qualifiers (1) Diabetes mellitus with neuropathy: Qualified Code: E11.40 - Type 2 diabetes mellitus with diabetic neuropathy, unspecified intermediate card tender insulin use status (2) Leukocytosis: Qualified Code: D72.829 - Leukocytosis, unspecified type Frank Magana MD August 04, 2016 16:19
[2016-08-05] VITALS (18 sets, daily range): BP systolic 137–150; BP diastolic 48–63; PULSE 72–106; RESP 12–33; TEMP 99.3–100; O2SAT 92–100
[2016-08-05] MEDS: PROPOFOL 1000 MG/100 ML IV SCH ×4 (01:07→22:23)
[2016-08-05] MEDS: RESP: ALBUTEROL 2.5 MG/IPRATROPIUM 0.5 MG NEB (SCH) NEB ×5 (03:31→20:58)
[2016-08-05] MEDS: CHLORHEXIDINE GLUCONATE 2 % 1 PACK (2 CLOTHS) TOP SCH (04:00)
[2016-08-05] MEDS: METOPROLOL TARTRATE 25 MG TAB OG-TUBE SCH ×3 (04:39→20:26)
[2016-08-05] MEDS: INSULIN ASPART SUPPLEMENTAL SCALE SQ SCH ×4 (04:39→22:25)
[2016-08-05] MEDS: niCARdipine INJ 50 MG in SODIUM CHLOR 0.9% 250 ML INJ 230 ML IV SCH ×2 (05:35→21:30)
[2016-08-05 06:14] LABS: APTT (PATIENT) 43.4 SEC (24.3-30.1)
[2016-08-05] MEDS: RESP: ACETYLCYSTEINE 10% 30 ML NEB NEB SCH ×2 (08:00→15:54)
[2016-08-05] MEDS: PANTOPRAZOLE SODIUM 40 MG VIAL IV SCH (08:12)
[2016-08-05] MEDS: CHLORHEXIDINE 0.12% (ORAL KIT) 15 ML CUP MT SCH ×2 (08:12→20:26)
[2016-08-05] MEDS: ASPIRIN 81 MG CHEW TAB CHEW SCH (08:12)
[2016-08-05] MEDS: METOCLOPRAMIDE HCL 10 MG/2 ML VIAL IV PUSH SCH ×2 (08:12→18:04)
[2016-08-05] MEDS: LACTOBACILLUS ACIDOPHILUS TAB PO SCH ×3 (08:13→18:04)
[2016-08-05] MEDS: DOCUSATE SODIUM 100 MG CAP PO SCH ×2 (08:13→20:26)
[2016-08-05] MEDS: SENNOSIDES SYRUP 8.8 MG/5 ML CUP OG-TUBE SCH (08:13)
[2016-08-05] MEDS: SODIUM CHLORIDE 0.9% FLUSH 10 ML FLUSH IVF SCH (08:13)
[2016-08-05] MEDS: SODIUM CHLORIDE 0.9% FLUSH 10 ML FLUSH IV FLUSH SCH ×2 (08:14→20:26)
[2016-08-05] MEDS: SODIUM CHLOR 0.9% 1000 ML IV PRN (08:26)
[2016-08-05] MEDS: HEPARIN SODIUM - IV 10,000 UNITS/10 ML VIAL OTHER PRN (08:27)
[2016-08-05] MEDS: GENTAMICIN SULFATE (DIALYSIS USE ONLY) 20 MG/2 ML VIAL OTHER PRN (08:27)
[2016-08-05] MEDS: INSULIN DETEMIR 100 UNITS/ML VIAL SQ SCH ×2 (09:00→20:11)
--- NOTE | 2016-08-05 11:13 | HHI.IDPN ---
Subjective Subjective Remarks 71-year-old male admitted to the hospital for acute onset of diarrhea, chills and hypoglycemia. Patient apparently working in the yard July 18 and July 19. He was doing okay except for complaints on his lower extremity which is apparently chronic and related to his peripheral vascular disease. That night, the noted that the patient was breathing hard. She asked the patient and he stated that he is not short of breath. He has not complained of any sore throat, has not been congested, and has eaten without any problem. He has not had any urinary complaints. That night apparently the couldn't sleep, and around 4 :00 in the morning the patient woke up and stated that he wanted to go to the bathroom. Patient didn't make it, and had stool incontinence. He was noted to have some chills, and his blood sugars were low. He also had episode of vomiting. Patient was taken to the hospital, and since admission he is developed profound hypotension, and acidosis. He ended up getting intubated, and currently on Levophed and vasopressin. His white count is elevated, lactic acid elevated, and his creatinine is also quite elevated. His urine output has been low. Cultures done in the emergency room, are now reported as growing group A strep. Notes reviewed Temps ok BP ok Getting HD Last CXR no change in infiltrates Awake and following commands Last sputum with PSAE WBC normal Antibiotics Cefepime Lines LIJ TLC RIJ vascath Past Medical History Reviewed Allergies: Coded Allergies: No Known Allergies (Verified , 07/20/16) Objective . Vital Signs Date Time Temp Pulse Resp B/P Pulse Ox O2 Delivery O2 Flow Rate FiO2 08/05/16 08:04 99 40 08/05/16 08:00 40 08/05/16 08:00 99.7 94 22 143/57 99 08/05/16 08:00 93 08/05/16 06:00 81 08/05/16 04:10 99 40 08/05/16 04:00 86 08/05/16 04:00 99.5 86 21 150/52 100 08/05/16 04:00 40 08/05/16 02:00 84 08/05/16 01:05 98 40 08/05/16 00:00 40 08/05/16 00:00 99.6 82 20 138/48 98 08/05/16 00:00 82 08/04/16 22:00 90 08/04/16 21:54 97 40 08/04/16 21:45 40 08/04/16 20:00 104 08/04/16 20:00 99.5 104 30 150/56 96 08/04/16 18:00 101 08/04/16 17:01 98 40 08/04/16 16:00 87 08/04/16 16:00 40 08/04/16 16:00 98.6 86 26 133/43 99 08/04/16 14:00 90 08/04/16 12:13 100 40 08/04/16 12:00 40 08/04/16 12:00 98.7 93 27 134/50 100 08/04/16 12:00 92 08/04/16 08/04/16 08/05/16 15:00 23:00 07:00 Intake Total 753 ml 767 ml 861 ml Output Total 400 ml 285 ml 450 ml Balance 353 ml 482 ml 411 ml Intake IV Total 425 ml 442 ml 505 ml Tube Feeding 298 ml 235 ml 266 ml Tube Irrigant 30 ml 90 ml 90 ml Output Urine Total 400 ml 235 ml 300 ml Stool Total 0 ml 50 ml 150 ml Tube Feeding Residual Discard 0 ml 0 ml 0 ml . Laboratory Tests Test 08/04/16 05:45 White Blood Count 5.6 TH/MM3 Red Blood Count 2.43 MIL/MM3 Hemoglobin 7.3 GM/DL Hematocrit 21.8 % Mean Corpuscular Volume 89.6 FL Mean Corpuscular Hemoglobin 30.2 PG Mean Corpuscular Hemoglobin 33.7 % Concent Red Cell Distribution Width 14.2 % Platelet Count 238 TH/MM3 Mean Platelet Volume 9.0 FL Neutrophils (%) (Auto) 73.5 % Lymphocytes (%) (Auto) 15.4 % Monocytes (%) (Auto) 6.9 % Eosinophils (%) (Auto) 3.6 % Basophils (%) (Auto) 0.6 % Neutrophils # (Auto) 4.1 TH/MM3 Lymphocytes # (Auto) 0.9 TH/MM3 Monocytes # (Auto) 0.4 TH/MM3 Eosinophils # (Auto) 0.2 TH/MM3 Basophils # (Auto) 0.0 TH/MM3 CBC Comment DIFF FINAL Differential Comment Laboratory Tests Test 08/04/16 05:45 Sodium Level 142 MEQ/L Potassium Level 3.5 MEQ/L Chloride Level 103 MEQ/L Carbon Dioxide Level 25.4 MEQ/L Anion Gap 14 MEQ/L Blood Urea Nitrogen 80 MG/DL Creatinine 5.73 MG/DL Estimat Glomerular Filtration 10 ML/MIN Rate Random Glucose 166 MG/DL Calcium Level 7.3 MG/DL Protein Corrected Calcium 7.2 MG/DL Total Bilirubin 0.4 MG/DL Aspartate Amino Transf 21 U/L (AST/SGOT) Alanine Aminotransferase 28 U/L (ALT/SGPT) Alkaline Phosphatase 70 U/L Total Protein 7.5 GM/DL Albumin 1.4 GM/DL Microbiology Date/Time Procedure Status Source Growth 08/03/16 08:20 Gram Stain - Final Complete Sputum Endotracheal 08/03/16 08:20 Sputum Culture - Final Complete Pseudomonas Aeruginosa Imaging Chest X-Ray 08/02/16 1421 Signed Impressions: Service Date/Time: Tuesday, August 02, 2016 14:42 - CONCLUSION: No significant interval change in bilateral pulmonary opacity. Castillo Roldan MD Chest X-Ray 08/02/16 0600 Signed Impressions: Service Date/Time: Tuesday, August 02, 2016 05:47 - CONCLUSION: 1. Support apparatus in satisfactory position. Bilateral mostly basilar airspace disease and effusions similar to July 30. Jose Martin Valderrama MD Chest X-Ray 08/02/16 1421 Signed Impressions: Service Date/Time: Tuesday, August 02, 2016 14:42 - CONCLUSION: No significant interval change in bilateral pulmonary opacity. Castillo Roldan MD Abdomen/Pelvis CT 07/30/16 0000 Signed Impressions: Service Date/Time: Saturday, July 30, 2016 07:57 - CONCLUSION: 1. No retroperitoneal hematoma. 2. Bibasilar pulmonary consolidations with small effusions. 3. Chronic pancreatitis. No acute inflammation observed. 4. 2 ventral hernias. 5. IVC filter. 6. 3.6 x 3.1 cm AAA. Omer Cheng Jr., MD Abdomen X-Ray 07/24/16 0749 Signed Impressions: Service Date/Time: July 08:28 - CONCLUSION: Air-filled bowel loops centrally but no obstruction seen. Uli Atkins MD Renal Ultrasound 07/20/16 0000 Signed Impressions: Service Date/Time: Wednesday, July 20, 2016 14:32 - CONCLUSION: 1. No acute findings. Renal ultrasound unremarkable. Bladder was not well-visualized. Jose Martin Valderrama MD Lower Extremity Ultrasound 07/20/16 Signed Impressions: Service Date/Time: Wednesday, July 20, 2016 14:39 - CONCLUSION: Negative exam with no evidence of deep venous thrombosis. Alonzo Bradshaw MD Head CT 07/20/16 Signed Impressions: Service Date/Time: Wednesday, July 20, 2016 18:21 - CONCLUSION: 1. No acute intracranial abnormalities. Mild mucosal thickening of the ethmoid air cells. Jose Martin Valderrama MD Chest CT 07/20/16 Signed Impressions: Service Date/Time: Wednesday, July 20, 2016 11:28 - CONCLUSION: 1. Chronic scarring in the lung bases left greater than right. 2. No focal consolidation. 3. Bilateral adrenal masses left greater than right most consistent with adenomas. 4. Nonspecific bowel gas pattern noted in the upper abdomen with air-fluid levels in the small bowel. Alonzo Bradshaw MD Chest X-Ray 08/02/16599 Signed Impressions: Service Date/Time: Tuesday, August 02, 2016 05:47 - CONCLUSION: 1. Support apparatus in satisfactory position. Bilateral mostly basilar airspace disease and effusions similar to July 30. Jose Martin Valderrama MD Chest X-Ray 07/30/16599 Signed Impressions: Service Date/Time: Saturday, July 30, 2016 05:07 - CONCLUSION: 1. Interval increase in hazy opacity in the right lung. 2. Bilateral effusions are again noted with cardiomegaly and the findings are most characteristic of congestive heart failure. Alonzo Bradshaw MD Abdomen/Pelvis CT 07/30/16 Signed Impressions: Service Date/Time: Saturday, July 30, 2016 07:57 - CONCLUSION: 1. No retroperitoneal hematoma. 2. Bibasilar pulmonary consolidations with small effusions. 3. Chronic pancreatitis. No acute inflammation observed. 4. 2 ventral hernias. 5. IVC filter. 6. 3.6 x 3.1 cm AAA. Omer Cheng Jr., MD Chest X-Ray 07/28/16 06 Signed Impressions: Service Date/Time: Thursday, July 28, 2016 03:09 - CONCLUSION: No significant change. Hazy opacity remains in both lungs most consistent with congestive heart failure. Alonzo Bradshaw MD Chest X-Ray 07/28/16 0600 Signed Impressions: Service Date/Time: Thursday, July 28, 2016 03:09 - CONCLUSION: No significant change. Hazy opacity remains in both lungs most consistent with congestive heart failure. Alonzo Bradshaw MD Abdomen X-Ray 07/24/16 0749 Signed Impressions: Service Date/Time: July 08:28 - CONCLUSION: Air-filled bowel loops centrally but no obstruction seen. Uli Atkins MD Renal Ultrasound 07/20/16 0000 Signed Impressions: Service Date/Time: Wednesday, July 20, 2016 14:32 - CONCLUSION: 1. No acute findings. Renal ultrasound unremarkable. Bladder was not well-visualized. Jose Martin Valderrama MD Lower Extremity Ultrasound 07/20/16 0000 Signed Impressions: Service Date/Time: Wednesday, July 20, 2016 14:39 - CONCLUSION: Negative exam with no evidence of deep venous thrombosis. Alonzo Bradshaw MD Head CT 07/20/16 0000 Signed Impressions: Service Date/Time: Wednesday, July 20, 2016 18:21 - CONCLUSION: 1. No acute intracranial abnormalities. Mild mucosal thickening of the ethmoid air cells. Jose Martin Valderrama MD Chest CT 07/20/16 0000 Signed Impressions: Service Date/Time: Wednesday, July 20, 2016 11:28 - CONCLUSION: 1. Chronic scarring in the lung bases left greater than right. 2. No focal consolidation. 3. Bilateral adrenal masses left greater than right most consistent with adenomas. 4. Nonspecific bowel gas pattern noted in the upper abdomen with air-fluid levels in the small bowel. Alonzo Bradshaw MD Abdomen/Pelvis CT 07/20/16 0000 Signed Impressions: Service Date/Time: Wednesday, July 20, 2016 18:24 - CONCLUSION: 1. Lower abdominal ventral midline hernia containing loop of small bowel. Small bowel is mildly distended somewhat diffusely with fluid and air. Cannot exclude a low grade partial bowel obstruction in the area of herniation. 2. No abnormal fluid collections to suggest abscess. No free air or free fluid. 3. Basilar and dependent lung consolidation, left greater than right. Pneumonia could have this appearance. Small left effusion. 4. NG tip in stomach. Inferior vena cava filter present. Connelly catheter in bladder. Jose Martin Valderrama MD Physical Exam GENERAL: awake, following ssome commands, on the vent, NAD SKIN: Cool and dry. No generalized rash. HEAD: Atraumatic. Normocephalic. No temporal or scalp tenderness. EYES: [place] conjunctivae. No scleral icterus. No injection or drainage. ENT: Nose without bleeding, or purulent drainage. Endotracheal tube is in the mouth, has moist mucosa. Edentulous NECK: Trachea midline. No JVD or lymphadenopathy. Supple, nontender, no meningeal signs. CARDIOVASCULAR: Regular rate and rhythm without murmurs, gallops, or rubs. RESPIRATORY: Decreased BS at bases GASTROINTESTINAL: Abdomen soft, globular, bowel sounds are present and normoactive. Not tender. No hepato-splenomegaly, or palpable masses. MUSCULOSKELETAL: Extremities without clubbing, cyanosis, or edema. . Feet warm. No joint effusion, or edema noted. NEUROLOGICAL: Awake following all commands LINE: LIJ and RIJ lines with no evidence of infection : Connelly in place, urine looks clear Assessment & Plan Remarks IMPRESSION Group A Strep sepsis, with shock, MOSF, present on admission, source is not established - ?primary bacteremia, ?respiratory - echo valves look ok - no other (+) BC except the ones on admission Respiratory failure, extubated 08/02, reintubated 08/03 - difficulty managing secretion' PSAE PNA Renal failure, S/P CVVHD, on HD Thrombocytopenia due to sepsis, no DIC - resolved Known DM, HTN, PVD, CAD Diarrhea, abx associated Fevers, better - has PSAE in sputum RECOMMENDATION Monitor temps Continue Cefepime - should also Rx GAS Would give 14 days Rx for GAS Plan 7 days Cefepime for PSAE - give until 08/07 Aerosol Tobra Repeat CXR Monitor progress Spoke with Sal[place],Ceci G MD August 05, 2016 10:59
--- NOTE | 2016-08-05 12:54 | RADRPT ---
EXAM DATE/TIME: 08/05/2016 12:38 [facility] COMPARISON: CHEST SINGLE AP, August 02, 2016, 14:42. INDICATIONS : Respiratory failure. MEDICAL HISTORY : Hypertension. Diabetes mellitus type II. Congestive heart failure. SURGICAL HISTORY : Appendectomy. Colon resection ENCOUNTER: Subsequent ACUITY: 2 weeks PAIN SCORE: Non-responsive. LOCATION: Bilateral chest FINDINGS: A single view of the chest demonstrates bibasilar airspace disease. Mild cardiomegaly. Bilateral jugu lar lines, endotracheal tube are unchanged. Nasogastric tube tip in stomach. Small right pleural effu [place]ico. CONCLUSION: Mild improvement of bilateral airspace disease. Small right pleural effusion. Uli Atkins MD on August 05, 2016 at 12:51 Board Certified Radiologist. This report was verified electronically.
[2016-08-05] MEDS: CEFEPIME INJ 1,000 MG in SODIUM CHLORIDE 0.9% INJ 100 ML IV SCH (13:09)
[2016-08-05] MEDS: HEPARIN-D5W INJ 250 ML IV SCH ×2 (13:09→22:26)
[2016-08-05 13:22] LABS: ALKALINE PHOSPHATASE 80 U/L (45-117); ALT (GPT) 29 U/L (12-78); ANION GAP 12 MEQ/L (5-15); AST (GOT) 25 U/L (15-37); BICARBONATE 27.2 MEQ/L (21.0-32.0); BLOOD UREA NITROGEN 45 MG/DL (7-18); CHLORIDE 101 MEQ/L (98-107); GLOMERULAR FILTRATION RATE 17 ML/MIN (>89); POTASSIUM 3.4 MEQ/L (3.5-5.1); SODIUM (NA) 140 MEQ/L (136-145); TOTAL BILIRUBIN ADULT 0.4 MG/DL (0.2-1.0)
[2016-08-05 13:38] LABS: AUTOMATED NEUTROPHIL # 5.7 TH/MM3 (1.8-7.7); BASOPHIL # 0.1 TH/MM3 (0-0.2); BASOPHIL % 1.1 % (0.0-2.0); EOSINOPHIL # 0.3 TH/MM3 (0-0.4); EOSINOPHIL % 4.5 % (0.0-4.0); HEMATOCRIT 23.4 % (39.0-51.0); LYMPH % 11.3 % (9.0-44.0); LYMPHOCYTE # 0.8 TH/MM3 (1.0-4.8); MEAN CELL VOLUME 89.2 FL (80.0-100.0); MEAN CORPUSCULAR HEMOGLOBIN 29.4 PG (27.0-34.0); MEAN CORPUSCULAR HGB CONC 32.9 % (32.0-36.0); MONO % 5.7 % (0.0-8.0); NEUT % 77.4 % (16.0-70.0); PLATELET COUNT 252 TH/MM3 (150-450); RED BLOOD COUNT 2.63 MIL/MM3 (4.50-5.90); RED CELL DISTRIBUTION WIDTH 14.8 % (11.6-17.2); WHITE BLOOD COUNT 7.3 TH/MM3 (4.0-11.0)
[2016-08-05 13:39] LABS: HEMO FLAGS AUTO DIFF
--- NOTE | 2016-08-05 13:47 | HHI.HCPN ---
Reason for visit a. To assist with evaluation and management of symptoms including: dyspnea; pain; encephalopathy b. To assist medical decision maker(s) with: better understanding of current medical conditions; weighing benefits/burdens of medical treatment options; making medical treatment decisions. . Subjective/Interval History INTERVAL NOTE Mr. Lemus remains in the SICU. He is off sedation at time of my visit. He remains intubated; tolerting CPAP trials. He awakens easily to voice/exam. He shakes his head "no" when asked about pain/sob. There has been no opiate use since 08/01/16. He is able to follow some simple commands. Urine output is improving and creatinine beginning to fall. I spoke with Dr. Darek Hicks prior to visiting patient. Patient is borderline in terms of meeting criteria for medical extubation. If unable to extubate, will probably plan on tracheostomy on 08/06/16. is supportive of all aggressive care including tracheostomy at this time given he is recovering neurologically and kidney seem to be improving. . Family/friend interactions No family at bedside today. . Advance Directives Living Will: Completed, but not made available Health Care Surrogate: Completed, but not made available Durable Power of Rn Acls: Never completed Advance Directive Specifics Date completed: will bring in the advance directive. Date of completion is unknown at this time. . Health Care Surrogate(s): will bring in a copy of the advance directive. She reports that she is listed as the designated health care surrogate. . Documented care wishes: will bring in a copy of the advance directive. At this point we do not have any written documentation of the patient's health care goals/preferences. . Objective Vital Signs Date Time Temp Pulse Resp B/P Pulse Ox O2 Delivery O2 Flow Rate FiO2 08/05/16 11:23 40 08/05/16 11:23 100 40 08/05/16 10:00 86 08/05/16 08:04 99 40 08/05/16 08:00 40 08/05/16 08:00 99.7 94 22 143/57 99 08/05/16 08:00 93 08/05/16 06:00 81 08/05/16 04:10 99 40 08/05/16 04:00 86 08/05/16 04:00 99.5 86 21 150/52 100 08/05/16 04:00 40 08/05/16 02:00 84 08/05/16 01:05 98 40 08/05/16 00:00 40 08/05/16 00:00 99.6 82 20 138/48 98 08/05/16 00:00 82 08/04/16 22:00 90 08/04/16 21:54 97 40 08/04/16 21:45 40 08/04/16 20:00 104 08/04/16 20:00 99.5 104 30 150/56 96 08/04/16 18:00 101 08/04/16 17:01 98 40 08/04/16 16:00 87 08/04/16 16:00 40 08/04/16 16:00 98.6 86 26 133/43 99 08/04/16 14:00 90 Intake & Output 08/05/16 08/05/16 06:59 18:59 Intake Total 1628 ml Output Total 735.0 ml 3000 ml Balance 893.0 ml -3000 ml Intake IV Total 947 ml Tube Feeding 501 ml Tube Irrigant 180 ml Output Urine Total 535 ml Stool Total 200 ml Tube Feeding Residual Discard 0 ml 0 ml Hemodialysis 3000 ml . Physical Exam CONSTITUTIONAL/GENERAL: This is an overweight male intubated , in the SICU. Tolerating CPAP trials. Eyes are open; shakes his head "no" when asked about pain. Can follow simple commands. No evidence of distress. TUBES/LINES/DRAINS: Orotracheal tube; orogastric tube; left internal jugular central line; vas-cath right internal jugular; SCDs; Connelly catheter; rectal tube SKIN: No jaundice, rashes, or lesions. No wounds seen anteriorly. Skin temperature normal. EYES: Pupils equal and round. No scleral icterus. No injection or drainage. Fundi not examined. ENT: Appears to hear me fine. Nose without bleeding or purulent drainage. No oropharyngeal abnormalities seen around orotracheal and orogastric tubes. NECK: Trachea midline. CARDIOVASCULAR: Regular rhythm without murmurs, gallops, or rubs. No JVD. RESPIRATORY/CHEST: Orotracheally intubated. Breath sounds equal bilaterally but air movement diminished at bases. No audible ronchi/wheezes at time of my visit. GASTROINTESTINAL: Abdomen soft, non-tender, slightly distended. REctal tube in place with dark stool in bag. GENITOURINARY: Without palpable bladder distension. Connelly catheter in place. MUSCULOSKELETAL: Extremities without clubbing, cyanosis. 1+ hand edema. No mottling. NEUROLOGICAL: Eyes open. Shakes/nods head appropriately to questions. Follows simple commands. Moves all extremities. PSYCHIATRIC: Difficult to assess for anxiety/depression. No obvious psychotic process. . . Diagnostic Tests Laboratory Laboratory Tests Test 08/02/16 08/02/16 08/03/16 08/03/16 17:15 23:00 06:30 08:25 Activated Partial 65.7 SEC 44.3 SEC 40.4 SEC Thromboplast Time (24.3-30.1) (24.3-30.1) (24.3-30.1) White Blood Count 7.7 TH/MM3 (4.0-11.0) Red Blood Count 2.73 MIL/MM3 (4.50-5.90) Hemoglobin 8.2 GM/DL (13.0-17.0) Hematocrit 24.1 % (39.0-51.0) Mean Corpuscular Volume 88.1 FL (80.0-100.0) Mean Corpuscular Hemoglobin 30.1 PG (27.0-34.0) Mean Corpuscular Hemoglobin 34.1 % Concent (32.0-36.0) Red Cell Distribution Width 14.9 % (11.6-17.2) Platelet Count 245 TH/MM3 (150-450) Mean Platelet Volume 9.4 FL (7.0-11.0) Neutrophils (%) (Auto) 78.8 % (16.0-70.0) Lymphocytes (%) (Auto) 10.4 % (9.0-44.0) Monocytes (%) (Auto) 6.1 % (0.0-8.0) Eosinophils (%) (Auto) 3.2 % (0.0-4.0) Basophils (%) (Auto) 1.5 % (0.0-2.0) Neutrophils # (Auto) 6.0 TH/MM3 (1.8-7.7) Lymphocytes # (Auto) 0.8 TH/MM3 (1.0-4.8) Monocytes # (Auto) 0.5 TH/MM3 (0-0.9) Eosinophils # (Auto) 0.2 TH/MM3 (0-0.4) Basophils # (Auto) 0.1 TH/MM3 (0-0.2) CBC Comment DIFF FINAL Differential Comment Sodium Level 140 MEQ/L (136-145) Potassium Level 3.4 MEQ/L (3.5-5.1) Chloride Level 102 MEQ/L (98-107) Carbon Dioxide Level 25.7 MEQ/L (21.0-32.0) Anion Gap 12 MEQ/L (5-15) Blood Urea Nitrogen 62 MG/DL (7-18) Creatinine 5.17 MG/DL (0.60-1.30) Estimat Glomerular Filtration 11 ML/MIN (>89) Rate Random Glucose 144 MG/DL (74-106) Calcium Level 7.6 MG/DL (8.5-10.1) Phosphorus Level 6.4 MG/DL (2.5-4.9) Magnesium Level 2.5 MG/DL (1.5-2.5) Total Bilirubin 0.4 MG/DL (0.2-1.0) Aspartate Amino Transf 22 U/L (15-37) (AST/SGOT) Alanine Aminotransferase 32 U/L (12-78) (ALT/SGPT) Alkaline Phosphatase 80 U/L (45-117) Total Protein 8.5 GM/DL (6.4-8.2) Albumin 1.6 GM/DL (3.4-5.0) Test 08/04/16 08/05/16 08/05/16 05:45 05:55 12:25 White Blood Count 5.6 TH/MM3 (4.0-11.0) Red Blood Count 2.43 MIL/MM3 (4.50-5.90) Hemoglobin 7.3 GM/DL (13.0-17.0) Hematocrit 21.8 % (39.0-51.0) Mean Corpuscular Volume 89.6 FL (80.0-100.0) Mean Corpuscular Hemoglobin 30.2 PG (27.0-34.0) Mean Corpuscular Hemoglobin 33.7 % Concent (32.0-36.0) Red Cell Distribution Width 14.2 % (11.6-17.2) Platelet Count 238 TH/MM3 (150-450) Mean Platelet Volume 9.0 FL (7.0-11.0) Neutrophils (%) (Auto) 73.5 % (16.0-70.0) Lymphocytes (%) (Auto) 15.4 % (9.0-44.0) Monocytes (%) (Auto) 6.9 % (0.0-8.0) Eosinophils (%) (Auto) 3.6 % (0.0-4.0) Basophils (%) (Auto) 0.6 % (0.0-2.0) Neutrophils # (Auto) 4.1 TH/MM3 (1.8-7.7) Lymphocytes # (Auto) 0.9 TH/MM3 (1.0-4.8) Monocytes # (Auto) 0.4 TH/MM3 (0-0.9) Eosinophils # (Auto) 0.2 TH/MM3 (0-0.4) Basophils # (Auto) 0.0 TH/MM3 (0-0.2) CBC Comment DIFF FINAL Differential Comment Activated Partial 42.7 SEC 43.4 SEC Thromboplast Time (24.3-30.1) (24.3-30.1) Sodium Level 142 MEQ/L 140 MEQ/L (136-145) (136-145) Potassium Level 3.5 MEQ/L 3.4 MEQ/L (3.5-5.1) (3.5-5.1) Chloride Level 103 MEQ/L 101 MEQ/L (98-107) (98-107) Carbon Dioxide Level 25.4 MEQ/L 27.2 MEQ/L (21.0-32.0) (21.0-32.0) Anion Gap 14 MEQ/L (5-15) 12 MEQ/L (5-15) Blood Urea Nitrogen 80 MG/DL (7-18) 45 MG/DL (7-18) Creatinine 5.73 MG/DL 3.57 MG/DL (0.60-1.30) (0.60-1.30) Estimat Glomerular Filtration 10 ML/MIN (>89) 17 ML/MIN (>89) Rate Random Glucose 166 MG/DL 160 MG/DL (74-106) (74-106) Calcium Level 7.3 MG/DL 7.6 MG/DL (8.5-10.1) (8.5-10.1) Protein Corrected Calcium 7.2 MG/DL (8.5-10.1) Total Bilirubin 0.4 MG/DL 0.4 MG/DL (0.2-1.0) (0.2-1.0) Aspartate Amino Transf 21 U/L (15-37) 25 U/L (15-37) (AST/SGOT) Alanine Aminotransferase 28 U/L (12-78) 29 U/L (12-78) (ALT/SGPT) Alkaline Phosphatase 70 U/L (45-117) 80 U/L (45-117) Total Protein 7.5 GM/DL 8.4 GM/DL (6.4-8.2) (6.4-8.2) Albumin 1.4 GM/DL 1.4 GM/DL (3.4-5.0) (3.4-5.0) . Result Diagram: 08/04/16 0545 08/05/16 1225 Microbiology Microbiology Date/Time Procedure Status Source Growth 08/03/16 08:20 Gram Stain - Final Complete Sputum Endotracheal 08/03/16 08:20 Sputum Culture - Final Complete Pseudomonas Aeruginosa . Imaging Vital Signs Date Time Temp Pulse Resp B/P Pulse Ox O2 Delivery O2 Flow Rate FiO2 08/05/16 11:23 40 08/05/16 11:23 100 08/05/16 10:00 86 08/05/16 08:00 99.7 22 143/57 08/02/16 09:25 Non-Rebreather 15 . Procedures * Intubation/mechanical ventilation 07/20/16 * Left internal jugular central line placement 07/20/16 * Right jugular vas-cath placement * CRRT * Extubated and re-intubated 08/02/16 . Assessment and Plan Disease Oriented Problem List: (1) Severe sepsis with acute organ dysfunction Comment: Blood cx growing out Group A strep . (2) Respiratory failure (3) Ventilator associated pneumonia Comment: Sputum cx of 07/30/16 growing Pseudomonas. (4) Lactic acidosis Comment: Improved -- but metabolic acidosis persists with elevated anion gap. . (5) Hypoxia (6) Metabolic acidosis Comment: This has remained profound and persistent in spite of normalization of lactic acid for several days. Now improved. . . (7) Acute kidney injury Comment: Requiring dialysis. Renal function appears to no be improving. . . (8) Elevated troponin (9) Hypoalbuminemia (10) Thrombocytopenia Comment: Resolved. (11) History of DVT (deep vein thrombosis) (12) Chronic anticoagulation (13) Hypertension (14) Peripheral vascular disease (15) Dyslipidemia Symptom Scale: (1) Pain 0-10 Scale: Unable to quantify Comment: Patient has chronic pain mostly in the lower extremities from a combination of peripheral vascular disease and diabetic neuropathy. He had been prescribed opiates in the past but normally takes no analgesics because he doesn't like the side effects. Additional sources of discomfort at this time would include prolonged bedbound status; orotracheal/orogastric intubations; Connelly catheter; vascular access lines. Patient denies pain today. . . (2) Dyspnea 0-10 Scale: Unable to quantify (dyspnea seems managed with mechanical ventilation.) Comment: Controlled on ventilator. Now tolerating CPAP trials. . . (3) Encephalopathy 0-10 Scale: Unable to quantify Comment: Encephalopathy is most likely multifactorial and in large part due to the septic shock. Based on the history, it is unlikely that the duration of hypoglycemia or hypotension would've caused any type of permanent damage. There is no prior history of underlying dementia. Patient now improving slowly. . Pertinent Non-Medical Issues Psychosocial: Patient is well supported by his spouse and daughter who live locally, many friends who live locally, and 2 daughters who had flown in from [place] and [place]. Spiritual: Patient was raised in a Mandaeism home. Now identifies himself as a Pentecostalism. Muslim and spirituality have not played a large part in his life of late. Legal: reports the patient has completed an advanced directive. She will bring a copy into scanned into the medical record. Ethical issues impacting care: Patient is currently incapacitated to make his own health care decisions. He seems to be becoming more awake and alert. We are hopeful he will ultimately become capacitated to make his won health care decisions. . Important Contacts == Spouse (Alysia Lemus) [phone] == Daughter (Adenike) [phone] . Prognosis Though Mr Lemus has been quite critically ill with septic shock and multiple organs being affected, it is also important to note that in spite of his underlying chronic illnesses , his functional status was reasonably good prior to becoming acutely ill so suddenly. Family, understandably, want to give him a chance to see if he is able to get through this acute period. He had a similar episode of severe illness approximately 10 years ago after being hospitalized with a ruptured appendix. Family has witnessed him being able to recover from that. Patient now showing some signs of recovery. Family has become more optimistic. There will be a challenging road ahead of him but goals at this point remain aggressive. . . . Code Status: Full Code Plan == Code Status : FULL CODE == Decision Making: The patient is currently incapacitated to make his own health care decisions. He is improving, however, and there is certainly a chance he will be able to make his own health care decision in the future. will bring in the patient's completed advanced directive. She informs me that she is listed as the designated health care surrogate. If there is no advanced directive, would still be asked to serve as proxy decision-maker under the hierarchy of proxy's in the [place] statutes. == Goals of medical treatment: The patient's spouse wants ongoing and full aggressive care for the time being. They have seen him improve, become interactive, and therefore want everything done -- including tracheostomy if deemed necessary. Family desrire all resuscitation attempts be tried at this point in time. On the other hand, family reports that the patient would not want to be maintained on life support if there is no hope for meaningful recovery. is even uncertain if patient would ever agree to ongoing hemodialysis. If the patient declines in spite of aggressive care will probably want to reconsider goals. == Pain: As noted above, patient has a number of different pain syndromes. Patient is able to indicate that he is not having pain at time of my visit. PRN [place] and Morphine are available, but have not been utilized since . Patient showing no signs or symptoms of nonverbal pain on exam. == Encephalopathy: Encephalopathy is most likely multifactorial and in large part due to the septic shock. Based on the history, it is unlikely that the duration of hypoglycemia or hypotension would've caused any type of permanent damage. There is no prior history of underlying dementia. There has been slow improvement in cognitive function over the last days. == Dyspnea: Dyspnea currently being controlled with the ventilator. Now tolerating CPAP trials . Secretions may be the issue that prevents another extubation trial again in the near future. == is bringing in a copy of the patient's advanced directive for us to scan into the electronic medical record. Has not arrived yet. Have asked nursing staff to request this as well. == Palliative care will continue to follow to assist with symptom management and to further clarify goals of medical treatment as the clinical course evolves. . Attestation To help prompt me to consider important information that might be impacting today's encounter and assessment, information from prior notes written by myself or my colleagues may have been "brought forward" into today's note. My signature on this note, however, is an attestation that I personally performed the exam, history, and/or decision-making noted today, and, unless otherwise indicated, the interactions with patient, family, and staff as well as the review of records all occurred today. I also attest that the listed assessment and stated plan reflect my best clinical judgment today based on the combination of historical information, prior notes, and today's exam/ interactions. When time spent is documented, it refers only to time spent today by the signer, or if indicated, combined time spent today by collaborating physician/nurse practitioner. . Jameson Conklin MD August 05, 2016 13:47
[2016-08-05 14:09] LABS: BANDS 5 % (0-6); BASOPHILS 1 % (0-2); EOSINOPHILS 5 % (0-4); NEUTROPHIL # MANUAL DIFF 5.8 TH/MM3 (1.8-7.7); PLASMA CELLS 1 % (0-0); POLYS (SEG NEUTROPHILS) 74 % (16-70); WBC DIFF SAMPLE 100
[2016-08-05 14:10] LABS: PLATELET ESTIMATE SMEAR NORMAL (NORMAL); PLATELET MORPHOLOGY NORMAL (NORMAL); ROULEAUX PRESENT (NORMAL)
[2016-08-05 14:11] LABS: SCAN/DIFF FINAL DIFF MANUAL
--- NOTE | 2016-08-05 15:17 | HHI.CCPN ---
Subjective Remarks/Hospital Course 71-year-old male. Date of admission 07/20/2016. Past records includes diabetes with neuropathy and nephropathy, hypertension, dyslipidemia, chronic pain syndrome, history of DVT/PE on chronic anticoagulation, peripheral vascular disease with history of AAA, and osteoporosis. Patient recently [place] 07/06/16. Patient sick contacts would include neighbor with "vital illness. Patient is to [facility] today with acute onset of diarrhea, hypoglycemia and chills. Upon arrival, patient was noted be acutely hypoxic and required a nonrebreather mask. Patient denies pleuritic chest pain , abdominal pain but positive for nausea and diarrhea. CT chest revealed bilateral lower lobe scarring, bilateral adrenal adenomas a nonspecific bowel gas pattern. Chest x-ray revealed no significant findings. Lab work included a lactic acid elevated 7.7, white blood cell count 12,000 in acute kidney injury with a creatinine of 3.0. Baseline around 1.5-2. Troponin was slightly elevated 0.14. EKG is currently pending. Upon arrival to [facility], patient was extremely mottled with rates in the 40s. Patient was emergently intubated please see note and a left IJ central line was placed. CT of the head, abdomen and pelvis currently pending. 07/21 Patient is sedated with Diprivan and Fentanyl and intubated. On Levophed 22 mics, Vasopressin and bicarb drip. BC from 07/20: GPC all 4 bottles. 07/22 Patient remains sedated and intubated On Levophed 22 mics, vasopressin and bicarb drip. Awaiting to start CVVHD today 07/23: Remains sedated, orally intubated on mech ventilation. On Levophed 15 mics per minute and low-dose vasopressin for pressor support. On CRRT. 07/24: Remains sedated, orally intubated on mechanical ventilation. On Levophed 7 mics per minute and low-dose vasopressin for pressor support. CRRT was stopped at 1:30 AM due to Air in system and has now been resumed. 2 Amps of bicarbonate given for metabolic acidosis while CRRT held and bicarbonate drip was started back yesterday 07/25: Remains critically ill, on CVVH. Levoped 6 mics per minute. White count has normalized, making slight amount of urine. Showing some signs of progress 07/26: Remains sedated, orally intubated on mechanical ventilation. Remains on Levophed 3 mics per minute, vasopressin 0.03 mics per minute. CRRT continues. 07/27: Remains sedated, orally intubated on mechanical ventilation. Remains on Levophed 2 mics per minute, vasopressin 0.03 mics per minute. On CRRT. 07/28: Remains sedated, orally intubated on mechanical ventilation. Off Levophed. Remains on vasopressin. CRRT clotted off this morning and is on hold currently. Nephrology to decide regarding regular hemodialysis as patient is now off Levophed. 07/29: Sedated, arousable, orally intubated on mechanical ventilation. Off Levophed and vasopressin drips. To be initiated on hemodialysis today. Tolerating tube feeds. 07/30: Sedated, arousable, orally intubated on mechanical ventilation. Hemoglobin dropped to 6.9 this morning no evidence of melena or rectal bleeding noted. Stat CT abdomen pelvis did not reveal any evidence of retroperitoneal hematoma. Patient is maintaining his blood pressure and has not had any hypotension. 2 units PRBCs ordered this morning. 07/31: Sedated, arousable, orally intubated on mechanical ventilation. Underwent hemodialysis this morning. 08/01: Arousable off sedation, weakly grasps on command and wiggles toes. Remains orally intubated on mechanical ventilation. Tolerating tube feeds. 08/02: Awake off sedation, orally intubated on mechanical ventilation. Tolerating tube feeds. Awaiting hemodialysis today. 08/03: Patient failed extubation on 08/02 and required reintubation due to inability to mobilize secretions and worsening hypoxia about 8 hours following extubation. Sedated, orally intubated on mechanical ventilation. Started on Mucomyst and percussion therapy to mobilize secretions. 08/04: Remains sedated, orally intubated on mechanical ventilation. Significant pulmonary secretions being suctioned out following initiation of Mucomyst and percussion therapy per overnight CALENDERING SUPERVISOR. Tolerating tube feeds. 08/05: Arousable off sedation, orally intubated on mechanical ventilation. Underwent hemodialysis today. Still has copious pulmonary secretions though these are being mobilized with Mucomyst and percussion therapy. Tolerating tube feeds. On C Pap trial to decide extubation. If he fails extubation or is unable to get extubated today will consider for tracheostomy tomorrow. Objective Vital Signs Date Time Temp Pulse Resp B/P Pulse Ox O2 Delivery O2 Flow Rate FiO2 08/05/16 14:00 98 08/05/16 11:23 40 08/05/16 11:23 100 08/05/16 08:00 99.7 22 143/57 08/02/16 09:25 Non-Rebreather 15 Intake and Output 08/04/16 08/04/16 08/04/16 07:59 15:59 23:59 Intake Total 880 ml 753 ml 767 ml Output Total 260 ml 400 ml 285 ml Balance 620 ml 353 ml 482 ml Result Diagram: 08/05/16 1225 08/05/16 1225 Other Results Microbiology Date/Time Procedure Status Source Growth 08/03/16 08:20 Gram Stain - Final Complete Sputum Endotracheal 08/03/16 08:20 Sputum Culture - Final Complete Pseudomonas Aeruginosa Imaging Last 48 hours Impressions Chest X-Ray 08/02/16 1421 Signed Impressions: Service Date/Time: Tuesday, August 02, 2016 14:42 - CONCLUSION: No significant interval change in bilateral pulmonary opacity. Castillo Roldan MD Last 48 hours Impressions Chest X-Ray 08/02/16 0600 Signed Impressions: Service Date/Time: Tuesday, August 02, 2016 05:47 - CONCLUSION: 1. Support apparatus in satisfactory position. Bilateral mostly basilar airspace disease and effusions similar to July 30. Jose Martin Valderrama MD Last 24 hours Impressions Chest X-Ray 07/28/16 0600 Signed Impressions: Service Date/Time: Thursday, July 28, 2016 03:09 - CONCLUSION: No significant change. Hazy opacity remains in both lungs most consistent with congestive heart failure. Alonzo Bradshaw MD Last 24 hours Impressions Chest X-Ray 07/26/16 0600 Signed Impressions: Service Date/Time: Tuesday, July 26, 2016 04:56 - CONCLUSION: No significant change. Jovan Aldridge MD Last 48 hours Impressions Abdomen X-Ray 07/24/16 0749 Signed Impressions: Service Date/Time: July 08:28 - CONCLUSION: Air-filled bowel loops centrally but no obstruction seen. Uli Atkins MD Chest X-Ray 07/24/16 0600 Signed Impressions: Service Date/Time: July 05:36 - CONCLUSION: Unchanged bibasilar infiltrates. Omer Cheng Jr., MD Last Impressions Chest X-Ray 07/21/16 Signed Impressions: Service Date/Time: Thursday, July 21, 2016 22:13 - CONCLUSION: Satisfactory central line positioning. Worsening aeration. [place] Guillermo MD Renal Ultrasound 07/20/16 Signed Impressions: Service Date/Time: Wednesday, July 20, 2016 14:32 - CONCLUSION: 1. No acute findings. Renal ultrasound unremarkable. Bladder was not well-visualized. Jose Martin Valderrama MD Lower Extremity Ultrasound 07/20/16 Signed Impressions: Service Date/Time: Wednesday, July 20, 2016 14:39 - CONCLUSION: Negative exam with no evidence of deep venous thrombosis. Alonzo Bradshaw MD Head CT 07/20/16 Signed Impressions: Service Date/Time: Wednesday, July 20, 2016 18:21 - CONCLUSION: 1. No acute intracranial abnormalities. Mild mucosal thickening of the ethmoid air cells. Jose Martin Valderrama MD Chest CT 07/20/16 Signed Impressions: Service Date/Time: Wednesday, July 20, 2016 11:28 - CONCLUSION: 1. Chronic scarring in the lung bases left greater than right. 2. No focal consolidation. 3. Bilateral adrenal masses left greater than right most consistent with adenomas. 4. Nonspecific bowel gas pattern noted in the upper abdomen with air-fluid levels in the small bowel. Alonzo Bradshaw MD Abdomen/Pelvis CT 07/20/16 Signed Impressions: Service Date/Time: Wednesday, July 20, 2016 18:24 - CONCLUSION: 1. Lower abdominal ventral midline hernia containing loop of small bowel. Small bowel is mildly distended somewhat diffusely with fluid and air. Cannot exclude a low grade partial bowel obstruction in the area of herniation. 2. No abnormal fluid collections to suggest abscess. No free air or free fluid. 3. Basilar and dependent lung consolidation, left greater than right. Pneumonia could have this appearance. Small left effusion. 4. NG tip in stomach. Inferior vena cava filter present. Connelly catheter in bladder. Jose Martin Valderrama MD Objective Remarks Drips: Propofol GENERAL: Patient is 71 yo elderly male, intubated. Laying in bed, on mechanical ventilation SKIN: Warm and dry. HEAD: Normocephalic. EYES: Pallor present. No scleral icterus. No injection or drainage. NECK: Supple, trachea midline. No JVD or lymphadenopathy. CARDIOVASCULAR: Regular rate and rhythm without murmurs, gallops, or rubs. RESPIRATORY: Orally intubated on mechanical ventilation, Breath sounds decreased bilaterally at bases. Scattered rhonchi, no wheezing. GASTROINTESTINAL: Abdomen soft, non-tender, nondistended. Bowel sounds sluggish Neuro: Arousable off sedation, orally intubated, following commands. Moves both upper extremities weakly and wiggles toes bilaterally. Extremities: Warm bilaterally, Bilateral edema Line: Central Venous Catheter A/P Assessment and Plan Neuro/Psych: Peripheral neuropathy Chronic pain syndrome Propofol drips for sedation/analgesia while intubated. Ativan IV when necessary for sedation. Goal RASS -2 Daily sedation vacation 07/20 CT brain: No acute intracranial abnormalities. CV: Elevated troponin Hypertension Dyslipidemia Lactic acidosis Septic shock Peripheral vascular disease History of AAA Off Levophed/ vasopressin currently. Labetalol when necessary for SBP greater than 160 mmHg. Started Lopressor 12.5 mg via OG tube every 8 hourly on 07/31. Off Stress dose steroids- Hydrocortisone decreased to 50mg daily on 07/29 and stopped on 07/31 Continue with ASA daily Echo showed EF 35-40% Resp: Acute hypoxemic respiratory failure Tobaccoism On mechanical ventilation. Daily C Pap trials to decide extubation Ventilator bundle. Bronchodilator therapy every 4 hours with albuterol every 2 hours. Mucomyst every 8 hours and chest percussion therapy PEEP +7 CT chest 07/20 revealed left greater than right basilar scarring. Bilateral adrenal adenomas. No focal consolidation GI: Tolerating tube feeds- Nepro with goal rate 40ml/hr. Reglan 5 mg IV every 8 hours Protonix for GI prophylaxis Colace/as needed Senokot for bowel regimen CT abdomen reviewed. Gen surgery- Dr Roman- no surgical interventions. : Strict intake output, monitor and replete electrolytes, follow BUN/creatinine. Started CRRT on 07/22, being followed by nephrology Dr. Magana. CRRT on hold since 07/28. Switched to hemodialysis on 07/29. Renal US: No acute findings Endo: Diabetes mellitus with nephropathy and neuropathy Bilateral adrenal adenoma Hyperglycemia Decreased Levemir to 10 units subcutaneously every 12 hourly on 07/31. On high dose sliding scale insulin on 07/29 for better glycemic control. Off steroids. 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 HIT screen negative. Platelets have normalized. Started heparin 5000 units subcutaneously every 12 hourly on 07/29, increased to 5000 units subcutaneously every 8 hourly on 07/31. Transfused 2 units PRBCs for drop in hemoglobin to 6.9 on 07/30. CT abdomen pelvis with no evidence of retroperitoneal hematoma. Most likely secondary to blood loss with CRRT regarding multiple times. Maintaining H&H. Advanced to full anticoagulation with heparin GTT on 08/01 ID: Strep Bacteremia Sepsis Pneumonia Continue with abx per ID - Unasyn switched to cefepime on 07/31 per ID due to pseudomonas in sputum. ID planning to initiate tobramycin nebulizer treatments. Clindamycin stopped 07/29, vanco x 1 dose on admission. Pertinent cultures BC 07/20- GPC, Group A Beta strep Urine cx 07/20 : neg Strep pneumonia nad Legionella urinary Ag negative Follow up on Sputum cx, BC 07/21, 07/22- NGTD 07/30 Sputum c/s with pseudomonas MSK: Osteoarthritis Holding vitamin D 1000 units by mouth daily. Access - Left IJ CVL placed 07/20, Art line placed 07/21 - discontinue A line 08/05 -Right IJ vascath placed 07/22 Prophylaxis - GI - Protonix - DVT - SCD/heparin SQ. Starting Heparin gtt 08/01 for full anticoagulation. - Doppler US LE negative for DVT Palliative care is following Patient is critically ill with resp failure, renal failure, septic shock and multiorgan injury. Prognosis guarded. Updated patient's on 08/05 regarding current clinical condition and plan of care and she voiced understanding. I have also previously explained possible need for tracheostomy and PEG tube. D/W CALENDERING SUPERVISOR Discussed with Dr. Conklin from palliative care Critical Care: The total critical care time was 30 minutes. Time to perform other separately billable procedures was not included in the critical care time. Roman Hicks MD August 05, 2016 15:17
[2016-08-05] MEDS: RESP: TOBRAMYCIN SULFATE 80 MG/2 ML NEB NEB SCH ×2 (15:57→20:58)
--- NOTE | 2016-08-05 17:51 | HHI.NPPN ---
Subjective History of Present Illness 71-year-old male with past medical history of diabetes mellitus, hypertension, ischemic heart disease, peripheral neuropathy, chronic kidney disease, history of deep vein thrombosis, hyperlipidemia was brought to the hospital because of generalized weakness, confusion and vomiting and diarrhea. I was called to see the patient because of elevated BUN and creatinine. The patient has history of acute kidney injury in the past and chronic kidney disease. His creatinine was around 1.2 to 1.4, this was in 2012. Additional Remarks Patient remain intubated, awake, now on CPAP, following verbal commands. Review of Systems General Constitutional: Fatigue Respiratory Lungs: SOB, Cough, Sputum, Wheeze Objective Data Data 08/04/16 08/05/16 19:00 07:00 Intake Total 753 ml 1628 ml Output Total 400.0 ml 735.0 ml Balance 353.0 ml 893.0 ml Intake IV Total 425 ml 947 ml Tube Feeding 298 ml 501 ml Tube Irrigant 30 ml 180 ml Output Urine Total 400 ml 535 ml Stool Total 0 ml 200 ml Tube Feeding Residual Discard 0 ml 0 ml Vital Signs Date Time Temp Pulse Resp B/P Pulse Ox O2 Delivery O2 Flow Rate FiO2 08/05/16 16:00 99.3 96 33 137/51 94 08/05/16 16:00 40 08/05/16 16:00 96 08/05/16 15:47 92 40 08/05/16 14:00 98 08/05/16 12:00 40 08/05/16 12:00 99.4 72 12 142/63 99 08/05/16 12:00 98 08/05/16 11:23 40 08/05/16 11:23 100 40 08/05/16 10:00 86 08/05/16 08:04 99 40 08/05/16 08:00 40 08/05/16 08:00 99.7 94 22 143/57 99 08/05/16 08:00 93 08/05/16 06:00 81 08/05/16 04:10 99 40 08/05/16 04:00 86 08/05/16 04:00 99.5 86 21 150/52 100 08/05/16 04:00 40 08/05/16 02:00 84 08/05/16 01:05 98 40 08/05/16 00:00 40 08/05/16 00:00 99.6 82 20 138/48 98 08/05/16 00:00 82 08/04/16 22:00 90 08/04/16 21:54 97 40 08/04/16 21:45 40 08/04/16 20:00 104 08/04/16 20:00 99.5 104 30 150/56 96 08/04/16 18:00 101 -: 08/05/16 1225 08/05/16 1225 Physical Exam General Appearance: No Acute Distress, Anxious Eyes Eye Exam: Pupils Equal Throat Throat Exam: Oral Mucosa [place] & Moist Neck Neck Exam: Neck Supple Pulmonary Resp Exam: Rhonchi, Decreased Bases, Diminished Breath Sounds, Poor Inspiratory Effort Cardiology CV Exam: Regular, Normal Sinus Rhythm Gastrointestinal/Abdomen GI Exam: Soft, Non-Tender, Bowel Sounds Present Extremeties Extremities Exam: Trace Edema Neurologic Neuro Exam: Alert, Awake Psychiatric Psych Exam: Appropriate Responses Assessment/Plan Assessment Summary: ADALID/Acute Renal Failure Electrolyte Assessment: Metabolic Acidosis Problem List: (1) Diabetes mellitus with neuropathy (2) Leukocytosis (3) Peripheral vascular disease (4) Severe sepsis with acute organ dysfunction (5) History of DVT (deep vein thrombosis) (6) Hypoxia (7) Acidosis (8) Lactic acidosis Plan Patient has some improvement in the urine out put. BP is has improved off pressors. BC results noted, seen by ID. On Unasyn and Flagyl, ID following. Repeat BC negative. Off pressors and the BP is stable. Creatinine still elevated, HD done in AM and 3 liters removed. Weaning as per CCM. Urine out put is better, follow BMP and HD as needed. Problem Qualifiers (1) Diabetes mellitus with neuropathy: Qualified Code: E11.40 - Type 2 diabetes mellitus with diabetic neuropathy, unspecified hospice clinical marketer insulin use status (2) Leukocytosis: Qualified Code: D72.829 - Leukocytosis, unspecified type Frank Magana MD August 05, 2016 17:51
[2016-08-06] VITALS (18 sets, daily range): BP systolic 126–162; BP diastolic 59–71; PULSE 63–105; RESP 16–34; TEMP 98.4–99.5; O2SAT 94–100
[2016-08-06] MEDS: RESP: ACETYLCYSTEINE 10% 30 ML NEB NEB SCH ×3 (01:10→16:02)
[2016-08-06] MEDS: RESP: ALBUTEROL 2.5 MG/IPRATROPIUM 0.5 MG NEB (SCH) NEB ×3 (01:10→11:24)
[2016-08-06] MEDS: METOCLOPRAMIDE HCL 10 MG/2 ML VIAL IV PUSH SCH ×3 (03:48→18:46)
[2016-08-06] MEDS: CHLORHEXIDINE GLUCONATE 2 % 1 PACK (2 CLOTHS) TOP SCH (03:48)
[2016-08-06] MEDS: PROPOFOL 1000 MG/100 ML IV SCH ×2 (04:16→23:10)
[2016-08-06] MEDS: METOPROLOL TARTRATE 25 MG TAB OG-TUBE SCH ×2 (04:20→14:15)
[2016-08-06 05:43] LABS: AUTOMATED NEUTROPHIL # 3.8 TH/MM3 (1.8-7.7); BASOPHIL # 0.1 TH/MM3 (0-0.2); BASOPHIL % 1.7 % (0.0-2.0); EOSINOPHIL # 0.3 TH/MM3 (0-0.4); EOSINOPHIL % 5.6 % (0.0-4.0); HEMATOCRIT 21.2 % (39.0-51.0); LYMPH % 17.5 % (9.0-44.0); MEAN CELL VOLUME 89.7 FL (80.0-100.0); MEAN CORPUSCULAR HEMOGLOBIN 29.9 PG (27.0-34.0); MEAN CORPUSCULAR HGB CONC 33.3 % (32.0-36.0); MONO % 6.8 % (0.0-8.0); NEUT % 68.4 % (16.0-70.0); PLATELET COUNT 203 TH/MM3 (150-450); RED BLOOD COUNT 2.37 MIL/MM3 (4.50-5.90); RED CELL DISTRIBUTION WIDTH 14.3 % (11.6-17.2); WHITE BLOOD COUNT 5.5 TH/MM3 (4.0-11.0)
[2016-08-06 05:46] LABS: HEMO FLAGS AUTO DIFF
[2016-08-06 05:54] LABS: APTT (PATIENT) 44.5 SEC (24.3-30.1)
[2016-08-06] MEDS: INSULIN ASPART SUPPLEMENTAL SCALE SQ SCH ×4 (06:00→23:28)
[2016-08-06 06:17] LABS: BICARBONATE 28.8 MEQ/L (21.0-32.0); POTASSIUM 3.5 MEQ/L (3.5-5.1); TOTAL BILIRUBIN ADULT 0.4 MG/DL (0.2-1.0)
[2016-08-06 06:22] LABS: CALCIUM-PROTEIN CORRECTED 6.9 MG/DL (8.5-10.1)
[2016-08-06 06:53] LABS: PLATELET ESTIMATE SMEAR NORMAL (NORMAL); PLATELET MORPHOLOGY NORMAL (NORMAL); SCAN/DIFF AUTO DIFF CONFIRMED
[2016-08-06] MEDS: CHLORHEXIDINE 0.12% (ORAL KIT) 15 ML CUP MT SCH ×2 (08:18→20:19)
[2016-08-06] MEDS: PANTOPRAZOLE SODIUM 40 MG VIAL IV SCH (08:18)
[2016-08-06] MEDS: ASPIRIN 81 MG CHEW TAB CHEW SCH (08:19)
[2016-08-06] MEDS: DOCUSATE SODIUM 100 MG CAP PO SCH ×2 (08:19→20:53)
[2016-08-06] MEDS: LACTOBACILLUS ACIDOPHILUS TAB PO SCH ×3 (08:19→18:46)
[2016-08-06] MEDS: INSULIN DETEMIR 100 UNITS/ML VIAL SQ SCH ×2 (08:20→21:25)
[2016-08-06] MEDS: RESP: TOBRAMYCIN SULFATE 80 MG/2 ML NEB NEB SCH ×2 (08:31→20:46)
[2016-08-06] MEDS: SENNOSIDES SYRUP 8.8 MG/5 ML CUP OG-TUBE SCH (08:39)
[2016-08-06] MEDS: SODIUM CHLORIDE 0.9% FLUSH 10 ML FLUSH IVF SCH (08:39)
[2016-08-06] MEDS: SODIUM CHLORIDE 0.9% FLUSH 10 ML FLUSH IV FLUSH SCH ×2 (08:40→20:53)
[2016-08-06] MEDS: HEPARIN-D5W INJ 250 ML IV SCH (14:11)
[2016-08-06] MEDS: CEFEPIME INJ 1,000 MG in SODIUM CHLORIDE 0.9% INJ 100 ML IV SCH (14:15)
[2016-08-06] MEDS: RESP: ALBUTEROL 2.5 MG/3 ML NEB (PRN) INH (16:02)
[2016-08-06] MEDS ORDERED: LABETALOL HCL 100 MG/20 ML VIAL IV PUSH PRN (16:15)
--- NOTE | 2016-08-06 16:23 | HHI.CCPN ---
Subjective Remarks/Hospital Course 71-year-old male. Date of admission 07/20/2016. Past records includes diabetes with neuropathy and nephropathy, hypertension, dyslipidemia, chronic pain syndrome, history of DVT/PE on chronic anticoagulation, peripheral vascular disease with history of AAA, and osteoporosis. Patient recently C [place] 07/06/16. Patient sick contacts would include neighbor with "vital illness. Patient is to [facility] today with acute onset of diarrhea, hypoglycemia and chills. Upon arrival, patient was noted be acutely hypoxic and required a nonrebreather mask. Patient denies pleuritic chest pain , abdominal pain but positive for nausea and diarrhea. CT chest revealed bilateral lower lobe scarring, bilateral adrenal adenomas a nonspecific bowel gas pattern. Chest x-ray revealed no significant findings. Lab work included a lactic acid elevated 7.7, white blood cell count 12,000 in acute kidney injury with a creatinine of 3.0. Baseline around 1.5-2. Troponin was slightly elevated 0.14. EKG is currently pending. Upon arrival to [facility] [address], patient was extremely mottled with rates in the 40s. Patient was emergently intubated please see note and a left IJ central line was placed. CT of the head, abdomen and pelvis currently pending. 07/21 Patient is sedated with Diprivan and Fentanyl and intubated. On Levophed 22 mics, Vasopressin and bicarb drip. BC from 07/20: GPC all 4 bottles. 07/22 Patient remains sedated and intubated On Levophed 22 mics, vasopressin and bicarb drip. Awaiting to start CVVHD today 07/23: Remains sedated, orally intubated on mech ventilation. On Levophed 15 mics per minute and low-dose vasopressin for pressor support. On CRRT. 07/24: Remains sedated, orally intubated on mechanical ventilation. On Levophed 7 mics per minute and low-dose vasopressin for pressor support. CRRT was stopped at 1:30 AM due to Air in system and has now been resumed. 2 Amps of bicarbonate given for metabolic acidosis while CRRT held and bicarbonate drip was started back yesterday 07/25: Remains critically ill, on CVVH. Levoped 6 mics per minute. White count has normalized, making slight amount of urine. Showing some signs of progress 07/26: Remains sedated, orally intubated on mechanical ventilation. Remains on Levophed 3 mics per minute, vasopressin 0.03 mics per minute. CRRT continues. 07/27: Remains sedated, orally intubated on mechanical ventilation. Remains on Levophed 2 mics per minute, vasopressin 0.03 mics per minute. On CRRT. 07/28: Remains sedated, orally intubated on mechanical ventilation. Off Levophed. Remains on vasopressin. CRRT clotted off this morning and is on hold currently. Nephrology to decide regarding regular hemodialysis as patient is now off Levophed. 07/29: Sedated, arousable, orally intubated on mechanical ventilation. Off Levophed and vasopressin drips. To be initiated on hemodialysis today. Tolerating tube feeds. 07/30: Sedated, arousable, orally intubated on mechanical ventilation. Hemoglobin dropped to 6.9 this morning no evidence of melena or rectal bleeding noted. Stat CT abdomen pelvis did not reveal any evidence of retroperitoneal hematoma. Patient is maintaining his blood pressure and has not had any hypotension. 2 units PRBCs ordered this morning. 07/31: Sedated, arousable, orally intubated on mechanical ventilation. Underwent hemodialysis this morning. 08/01: Arousable off sedation, weakly grasps on command and wiggles toes. Remains orally intubated on mechanical ventilation. Tolerating tube feeds. 08/02: Awake off sedation, orally intubated on mechanical ventilation. Tolerating tube feeds. Awaiting hemodialysis today. 08/03: Patient failed extubation on 08/02 and required reintubation due to inability to mobilize secretions and worsening hypoxia about 8 hours following extubation. Sedated, orally intubated on mechanical ventilation. Started on Mucomyst and percussion therapy to mobilize secretions. 08/04: Remains sedated, orally intubated on mechanical ventilation. Significant pulmonary secretions being suctioned out following initiation of Mucomyst and percussion therapy per overnight POSTAL CLERK. Tolerating tube feeds. 08/05: Arousable off sedation, orally intubated on mechanical ventilation. Underwent hemodialysis today. Still has copious pulmonary secretions though these are being mobilized with Mucomyst and percussion therapy. Tolerating tube feeds. On C Pap trial to decide extubation. If he fails extubation or is unable to get extubated today will consider for tracheostomy tomorrow. 08/06: failing CPAP trials for tachypnea. Objective Vital Signs Date Time Temp Pulse Resp B/P Pulse Ox O2 Delivery O2 Flow Rate FiO2 08/06/16 11:24 94 40 08/06/16 10:00 101 08/06/16 08:00 98.9 32 134/64 08/02/16 09:25 Non-Rebreather 15 Intake and Output 08/05/16 08/05/16 08/06/16 08:00 16:00 00:00 Intake Total 861 ml 1099 ml 866 ml Output Total 450.0 ml 3250.0 ml 250.0 ml Balance 411.0 ml -2151.0 ml 616.0 ml Result Diagram: 08/06/1652408/06/16524 Imaging Last 48 hours Impressions Chest X-Ray 08/02/16 1421 Signed Impressions: Service Date/Time: Tuesday, August 02, 2016 14:42 - CONCLUSION: No significant interval change in bilateral pulmonary opacity. Castillo Roldan MD Last 48 hours Impressions Chest X-Ray 08/02/16 06 Signed Impressions: Service Date/Time: Tuesday, August 02, 2016 05:47 - CONCLUSION: 1. Support apparatus in satisfactory position. Bilateral mostly basilar airspace disease and effusions similar to July 30. Jose Martin Valderrama MD Last 24 hours Impressions Chest X-Ray 07/28/16 06 Signed Impressions: Service Date/Time: Thursday, July 28, 2016 03:09 - CONCLUSION: No significant change. Hazy opacity remains in both lungs most consistent with congestive heart failure. Alonzo Bradshaw MD Last 24 hours Impressions Chest X-Ray 07/26/16 06 Signed Impressions: Service Date/Time: Tuesday, July 26, 2016 04:56 - CONCLUSION: No significant change. Jovan Aldridge MD Last 48 hours Impressions Abdomen X-Ray 07/24/16 0749 Signed Impressions: Service Date/Time: July 08:28 - CONCLUSION: Air-filled bowel loops centrally but no obstruction seen. Uli Atkins MD Chest X-Ray 07/24/16 0600 Signed Impressions: Service Date/Time: July 05:36 - CONCLUSION: Unchanged bibasilar infiltrates. Omer Cheng Jr., MD Last Impressions Chest X-Ray 07/21/16 Signed Impressions: Service Date/Time: Thursday, July 21, 2016 22:13 - CONCLUSION: Satisfactory central line positioning. Worsening aeration. [place] Guillermo MD Renal Ultrasound 07/20/16 Signed Impressions: Service Date/Time: Wednesday, July 20, 2016 14:32 - CONCLUSION: 1. No acute findings. Renal ultrasound unremarkable. Bladder was not well-visualized. Jose Martin Valderrama MD Lower Extremity Ultrasound 07/20/16 Signed Impressions: Service Date/Time: Wednesday, July 20, 2016 14:39 - CONCLUSION: Negative exam with no evidence of deep venous thrombosis. Alonzo Bradshaw MD Head CT 07/20/16 Signed Impressions: Service Date/Time: Wednesday, July 20, 2016 18:21 - CONCLUSION: 1. No acute intracranial abnormalities. Mild mucosal thickening of the ethmoid air cells. Jose Martin Valderrama MD Chest CT 07/20/16 Signed Impressions: Service Date/Time: Wednesday, July 20, 2016 11:28 - CONCLUSION: 1. Chronic scarring in the lung bases left greater than right. 2. No focal consolidation. 3. Bilateral adrenal masses left greater than right most consistent with adenomas. 4. Nonspecific bowel gas pattern noted in the upper abdomen with air-fluid levels in the small bowel. Alonzo Bradshaw MD Abdomen/Pelvis CT 07/20/16 Signed Impressions: Service Date/Time: Wednesday, July 20, 2016 18:24 - CONCLUSION: 1. Lower abdominal ventral midline hernia containing loop of small bowel. Small bowel is mildly distended somewhat diffusely with fluid and air. Cannot exclude a low grade partial bowel obstruction in the area of herniation. 2. No abnormal fluid collections to suggest abscess. No free air or free fluid. 3. Basilar and dependent lung consolidation, left greater than right. Pneumonia could have this appearance. Small left effusion. 4. NG tip in stomach. Inferior vena cava filter present. Connelly catheter in bladder. Jose Martin Valderrama MD Objective Remarks Drips: Propofol GENERAL: Patient is 71 yo elderly male, intubated. Laying in bed, on mechanical ventilation SKIN: Warm and dry. HEAD: Normocephalic. EYES: Pallor present. No scleral icterus. No injection or drainage. NECK: Supple, trachea midline. No JVD or lymphadenopathy. CARDIOVASCULAR: Regular rate and rhythm without murmurs, gallops, or rubs. RESPIRATORY: Orally intubated on mechanical ventilation, Breath sounds decreased bilaterally at bases. Scattered rhonchi, no wheezing. GASTROINTESTINAL: Abdomen soft, non-tender, nondistended. Bowel sounds sluggish Neuro: Arousable off sedation, orally intubated, following commands. Moves both upper extremities weakly and wiggles toes bilaterally. Extremities: Warm bilaterally, Bilateral edema Line: Central Venous Catheter A/P Assessment and Plan Neuro/Psych: Peripheral neuropathy Chronic pain syndrome Propofol drips for sedation/analgesia while intubated. Ativan IV when necessary for sedation. Goal RASS -2 Daily sedation vacation 07/20 CT brain: No acute intracranial abnormalities. CV: Elevated troponin Hypertension Dyslipidemia Lactic acidosis- resolved. Septic shock- resolved. Peripheral vascular disease History of AAA Off Levophed/ vasopressin currently. Labetalol when necessary for SBP greater than 160 mmHg. Started Lopressor 12.5 mg via OG tube every 8 hourly on 07/31. Off Stress dose steroids- Hydrocortisone decreased to 50mg daily on 07/29 and stopped on 07/31 Continue with ASA daily Echo showed EF 35-40% Resp: Acute hypoxemic respiratory failure Tobaccoism On mechanical ventilation. Daily C Pap trials to decide extubation, failing cpap trials. Ventilator bundle. Bronchodilator therapy every 4 hours with albuterol every 2 hours. Mucomyst every 8 hours and chest percussion therapy PEEP +7 CT chest 07/20 revealed left greater than right basilar scarring. Bilateral adrenal adenomas. No focal consolidation GI: Tolerating tube feeds- Nepro with goal rate 40ml/hr. Reglan 5 mg IV every 8 hours Protonix for GI prophylaxis Colace/as needed Senokot for bowel regimen CT abdomen reviewed. Gen surgery- Dr Roman- no surgical interventions. : Strict intake output, monitor and replete electrolytes, follow BUN/creatinine. Started CRRT on 07/22, being followed by nephrology Dr. Magana. CRRT on hold since 07/28. Switched to hemodialysis on 07/29. Renal US: No acute findings Endo: Diabetes mellitus with nephropathy and neuropathy Bilateral adrenal adenoma Hyperglycemia Decreased Levemir to 10 units subcutaneously every 12 hourly on 07/31. On high dose sliding scale insulin on 07/29 for better glycemic control. Off steroids. 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 HIT screen negative. Platelets have normalized. Started heparin 5000 units subcutaneously every 12 hourly on 07/29, increased to 5000 units subcutaneously every 8 hourly on 07/31. Transfused 2 units PRBCs for drop in hemoglobin to 6.9 on 07/30. CT abdomen pelvis with no evidence of retroperitoneal hematoma. Most likely secondary to blood loss with CRRT regarding multiple times. Maintaining H&H. Advanced to full anticoagulation with heparin GTT on 08/01 ID: Strep Bacteremia Sepsis Pneumonia Continue with abx per ID - Unasyn switched to cefepime on 07/31 per ID due to pseudomonas in sputum. ID planning to initiate tobramycin nebulizer treatments. Clindamycin stopped 07/29, vanco x 1 dose on admission. Pertinent cultures BC 07/20- GPC, Group A Beta strep Urine cx 07/20 : neg Strep pneumonia nad Legionella urinary Ag negative Follow up on Sputum cx, BC 07/21, 07/22- NGTD 07/30 Sputum c/s with pseudomonas MSK: Osteoarthritis Holding vitamin D 1000 units by mouth daily. Access - Left IJ CVL placed 07/20. will attempt to obtain piv and d/c cvl. -Right IJ vascath placed 07/22 Prophylaxis - GI - Protonix - DVT - SCD/heparin SQ. Starting Heparin gtt 08/01 for full anticoagulation. - Doppler US LE negative for DVT Palliative care is following Patient is critically ill with resp failure, renal failure, septic shock and multiorgan injury. Prognosis guarded. Updated patient's on 08/05 regarding current clinical condition and plan of care and she voiced understanding. I have also previously explained possible need for tracheostomy and PEG tube. D/W POSTAL CLERK Discussed with Dr. Conklin from palliative care Critical Care time: 37 minutes, exclusive of separately billable procedures. Vitor Barrera MD August 06, 2016 16:23
--- NOTE | 2016-08-06 16:28 | HHI.NPPN ---
Subjective History of Present Illness 71-year-old male with past medical history of diabetes mellitus, hypertension, ischemic heart disease, peripheral neuropathy, chronic kidney disease, history of deep vein thrombosis, hyperlipidemia was brought to the hospital because of generalized weakness, confusion and vomiting and diarrhea. I was called to see the patient because of elevated BUN and creatinine. The patient has history of acute kidney injury in the past and chronic kidney disease. His creatinine was around 1.2 to 1.4, this was in 2012. Additional Remarks Patient remain intubated, awake, clinically same. Review of Systems General Constitutional: Fatigue Respiratory Lungs: SOB, Cough, Sputum, Wheeze Objective Data Data 08/05/16 08/06/16 19:00 07:00 Intake Total 1099 ml 1754 ml Output Total 3250.0 ml 420.0 ml Balance -2151.0 ml 1334.0 ml Intake IV Total 774 ml 1059 ml Tube Feeding 295 ml 515 ml Tube Irrigant 30 ml 180 ml Output Urine Total 250 ml 345 ml Stool Total 0 ml 75 ml Tube Feeding Residual Discard 0 ml 0 ml Hemodialysis 3000 ml # Bowel Movements 2 Vital Signs Date Time Temp Pulse Resp B/P Pulse Ox O2 Delivery O2 Flow Rate FiO2 08/06/16 16:03 97 40 08/06/16 11:24 94 40 08/06/16 11:08 40 08/06/16 10:00 101 08/06/16 08:00 98.9 99 32 134/64 96 08/06/16 08:00 99 08/06/16 08:00 40 08/06/16 07:48 40 08/06/16 07:48 97 40 08/06/16 06:00 84 08/06/16 04:31 99 40 08/06/16 04:00 40 08/06/16 04:00 63 08/06/16 04:00 98.9 63 19 134/64 98 08/06/16 02:00 87 08/06/16 01:11 98 40 08/06/16 00:00 99.5 79 20 126/59 98 08/06/16 00:00 79 08/06/16 00:00 40 08/05/16 22:00 78 08/05/16 21:01 94 40 08/05/16 21:00 40 08/05/16 20:00 100.0 86 27 138/63 95 Arterial Line 08/05/16 20:00 40 08/05/16 20:00 86 08/05/16 18:00 106 -: 08/06/16 0525 08/06/16 0525 Physical Exam General Appearance: No Acute Distress, Anxious Eyes Eye Exam: Pupils Equal Throat Throat Exam: Oral Mucosa [place] & Moist Neck Neck Exam: Neck Supple Pulmonary Resp Exam: Rhonchi, Decreased Bases, Diminished Breath Sounds, Poor Inspiratory Effort Cardiology CV Exam: Regular, Normal Sinus Rhythm Gastrointestinal/Abdomen GI Exam: Soft, Non-Tender, Bowel Sounds Present Extremeties Extremities Exam: Trace Edema Neurologic Neuro Exam: Alert, Awake Psychiatric Psych Exam: Appropriate Responses Assessment/Plan Assessment Summary: ADALID/Acute Renal Failure Electrolyte Assessment: Metabolic Acidosis Problem List: (1) Diabetes mellitus with neuropathy (2) Leukocytosis (3) Peripheral vascular disease (4) Severe sepsis with acute organ dysfunction (5) History of DVT (deep vein thrombosis) (6) Hypoxia (7) Acidosis (8) Lactic acidosis Plan Patient has some improvement in the urine out put. BP is has improved off pressors. BC results noted, seen by ID. On Unasyn and Flagyl, ID following. Repeat BC negative. Off pressors and the BP is stable. Creatinine still elevated, HD done yesterday, and tolerated well. Urine out put is better today. Still has elevated Creatinine, HD in AM. Weaning as per CCM. Problem Qualifiers (1) Diabetes mellitus with neuropathy: Qualified Code: E11.40 - Type 2 diabetes mellitus with diabetic neuropathy, unspecified intermediate project manager insulin use status (2) Leukocytosis: Qualified Code: D72.829 - Leukocytosis, unspecified type Frank Magana MD August 06, 2016 16:27
--- NOTE | 2016-08-06 18:32 | HHI.HCPN ---
Reason for visit a. To assist with evaluation and management of symptoms including: dyspnea; pain; encephalopathy b. To assist medical decision maker(s) with: better understanding of current medical conditions; weighing benefits/burdens of medical treatment options; making medical treatment decisions. . Subjective/Interval History INTERVAL NOTE No significant change overnight. Mr. Lemus remains in the SICU. He is off sedation at time of my visit. He remains intubated; tolerated CPAP for several hours. He awakens easily to voice/exam. He shakes his head "no" when asked about pain/sob. There has been no opiate use since 08/01/16. He is able to follow some more complicated commands -- "show the thumbs up sign with the right hand; ' wiggle your left toes; ' close your right eye." He was slow at these commands, but was able to perform them. Urine output fell again and renal function declined again. Critical care did not feel comfortable extubating his today. . . Family/friend interactions is at bedside. She continue to want to go forward with tracheostomy if he can't wean without it. She feels he is improving as he is more fussy I asked her once again about the advance directives. It is clear that she has them, but I sense she is frightened to bring them in. . Advance Directives Living Will: Completed, but not made available Health Care Surrogate: Completed, but not made available Durable Power of Owner Operator: Never completed Advance Directive Specifics Date completed: will bring in the advance directive. Date of completion is unknown at this time. . Health Care Surrogate(s): will bring in a copy of the advance directive. She reports that she is listed as the designated health care surrogate. . Documented care wishes: will bring in a copy of the advance directive. At this point we do not have any written documentation of the patient's health care goals/preferences. . Objective Vital Signs Date Time Temp Pulse Resp B/P Pulse Ox O2 Delivery O2 Flow Rate FiO2 08/06/16 18:00 91 08/06/16 16:03 97 40 08/06/16 16:00 105 08/06/16 16:00 40 08/06/16 14:00 92 08/06/16 12:00 96 08/06/16 12:00 40 08/06/16 11:24 94 40 08/06/16 11:08 40 08/06/16 10:00 101 08/06/16 08:00 98.9 99 32 134/64 96 08/06/16 08:00 99 08/06/16 08:00 40 08/06/16 07:48 40 08/06/16 07:48 97 40 08/06/16 06:00 84 08/06/16 04:31 99 40 08/06/16 04:00 40 08/06/16 04:00 63 08/06/16 04:00 98.9 63 19 134/64 98 08/06/16 02:00 87 08/06/16 01:11 98 40 08/06/16 00:00 99.5 79 20 126/59 98 08/06/16 00:00 79 08/06/16 00:00 40 08/05/16 22:00 78 08/05/16 21:01 94 40 08/05/16 21:00 40 08/05/16 20:00 100.0 86 27 138/63 95 Arterial Line 08/05/16 20:00 40 08/05/16 20:00 86 Intake & Output 08/06/16 08/06/16 07:00 19:00 Intake Total 1754 ml 629 ml Output Total 420.0 ml 475.0 ml Balance 1334.0 ml 154.0 ml Intake IV Total 1059 ml 308 ml Tube Feeding 515 ml 291 ml Tube Irrigant 180 ml 30 ml Output Urine Total 345 ml 475 ml Stool Total 75 ml 0 ml Tube Feeding Residual Discard 0 ml 0 ml # Bowel Movements 2 Physical Exam CONSTITUTIONAL/GENERAL: This is an overweight male intubated , in the SICU. Tolerating CPAP trials. Eyes are open; shakes his head "no" when asked about pain. Can follow complicated commands. No evidence of distress. TUBES/LINES/DRAINS: Orotracheal tube; orogastric tube; left internal jugular central line; vas-cath right internal jugular; SCDs; Connelly catheter; rectal tube SKIN: No jaundice, rashes, or lesions. No wounds seen anteriorly. Skin temperature normal. EYES: Pupils equal and round. No scleral icterus. No injection or drainage. Fundi not examined. ENT: Appears to hear me fine. Nose without bleeding or purulent drainage. No oropharyngeal abnormalities seen around orotracheal and orogastric tubes. NECK: Trachea midline. CARDIOVASCULAR: Regular rhythm without murmurs, gallops, or rubs. No JVD. RESPIRATORY/CHEST: Orotracheally intubated. More air movement on left than right. Air movement diminished bilatearlly at bases. No audible ronchi/wheezes at time of my visit. GASTROINTESTINAL: Abdomen soft, non-tender, slightly distended. Rectal tube in place with dark stool in bag. GENITOURINARY: Without palpable bladder distension. Connelly catheter in place. MUSCULOSKELETAL: Extremities without clubbing, cyanosis. 1+ hand edema. No mottling. NEUROLOGICAL: Eyes open. Shakes/nods head appropriately to questions. Follows some complex commands. Moves all extremities. PSYCHIATRIC: Difficult to assess for anxiety/depression. No obvious psychotic process. . . Diagnostic Tests Laboratory Laboratory Tests Test 08/04/16 08/05/16 08/05/16 08/06/16 05:45 05:55 12:25 05:25 White Blood Count 5.6 TH/MM3 7.3 TH/MM3 5.5 TH/MM3 (4.0-11.0) (4.0-11.0) (4.0-11.0) Red Blood Count 2.43 MIL/MM3 2.63 MIL/MM3 2.37 MIL/MM3 (4.50-5.90) (4.50-5.90) (4.50-5.90) Hemoglobin 7.3 GM/DL 7.7 GM/DL 7.1 GM/DL (13.0-17.0) (13.0-17.0) (13.0-17.0) Hematocrit 21.8 % 23.4 % 21.2 % (39.0-51.0) (39.0-51.0) (39.0-51.0) Mean Corpuscular Volume 89.6 FL 89.2 FL 89.7 FL (80.0-100.0) (80.0-100.0) (80.0-100.0) Mean Corpuscular Hemoglobin 30.2 PG 29.4 PG 29.9 PG (27.0-34.0) (27.0-34.0) (27.0-34.0) Mean Corpuscular Hemoglobin 33.7 % 32.9 % 33.3 % Concent (32.0-36.0) (32.0-36.0) (32.0-36.0) Red Cell Distribution Width 14.2 % 14.8 % 14.3 % (11.6-17.2) (11.6-17.2) (11.6-17.2) Platelet Count 238 TH/MM3 252 TH/MM3 203 TH/MM3 (150-450) (150-450) (150-450) Mean Platelet Volume 9.0 FL 9.1 FL 8.7 FL (7.0-11.0) (7.0-11.0) (7.0-11.0) Neutrophils (%) (Auto) 73.5 % 77.4 % 68.4 % (16.0-70.0) (16.0-70.0) (16.0-70.0) Lymphocytes (%) (Auto) 15.4 % 11.3 % 17.5 % (9.0-44.0) (9.0-44.0) (9.0-44.0) Monocytes (%) (Auto) 6.9 % (0.0-8.0) 5.7 % (0.0-8.0) 6.8 % (0.0-8.0) Eosinophils (%) (Auto) 3.6 % (0.0-4.0) 4.5 % (0.0-4.0) 5.6 % (0.0-4.0) Basophils (%) (Auto) 0.6 % (0.0-2.0) 1.1 % (0.0-2.0) 1.7 % (0.0-2.0) Neutrophils # (Auto) 4.1 TH/MM3 5.7 TH/MM3 3.8 TH/MM3 (1.8-7.7) (1.8-7.7) (1.8-7.7) Lymphocytes # (Auto) 0.9 TH/MM3 0.8 TH/MM3 1.0 TH/MM3 (1.0-4.8) (1.0-4.8) (1.0-4.8) Monocytes # (Auto) 0.4 TH/MM3 0.4 TH/MM3 0.4 TH/MM3 (0-0.9) (0-0.9) (0-0.9) Eosinophils # (Auto) 0.2 TH/MM3 0.3 TH/MM3 0.3 TH/MM3 (0-0.4) (0-0.4) (0-0.4) Basophils # (Auto) 0.0 TH/MM3 0.1 TH/MM3 0.1 TH/MM3 (0-0.2) (0-0.2) (0-0.2) CBC Comment DIFF FINAL AUTO DIFF AUTO DIFF Differential Comment FINAL DIFF AUTO DIFF MANUAL CONFIRMED Activated Partial 42.7 SEC 43.4 SEC 44.5 SEC Thromboplast Time (24.3-30.1) (24.3-30.1) (24.3-30.1) Sodium Level 142 MEQ/L 140 MEQ/L 139 MEQ/L (136-145) (136-145) (136-145) Potassium Level 3.5 MEQ/L 3.4 MEQ/L 3.5 MEQ/L (3.5-5.1) (3.5-5.1) (3.5-5.1) Chloride Level 103 MEQ/L 101 MEQ/L 100 MEQ/L (98-107) (98-107) (98-107) Carbon Dioxide Level 25.4 MEQ/L 27.2 MEQ/L 28.8 MEQ/L (21.0-32.0) (21.0-32.0) (21.0-32.0) Anion Gap 14 MEQ/L (5-15) 12 MEQ/L (5-15) 10 MEQ/L (5-15) Blood Urea Nitrogen 80 MG/DL (7-18) 45 MG/DL (7-18) 57 MG/DL (7-18) Creatinine 5.73 MG/DL 3.57 MG/DL 4.76 MG/DL (0.60-1.30) (0.60-1.30) (0.60-1.30) Estimat Glomerular Filtration 10 ML/MIN (>89) 17 ML/MIN (>89) 12 ML/MIN (>89) Rate Random Glucose 166 MG/DL 160 MG/DL 164 MG/DL (74-106) (74-106) (74-106) Calcium Level 7.3 MG/DL 7.6 MG/DL 7.2 MG/DL (8.5-10.1) (8.5-10.1) (8.5-10.1) Protein Corrected Calcium 7.2 MG/DL 6.9 MG/DL (8.5-10.1) (8.5-10.1) Total Bilirubin 0.4 MG/DL 0.4 MG/DL 0.4 MG/DL (0.2-1.0) (0.2-1.0) (0.2-1.0) Aspartate Amino Transf 21 U/L (15-37) 25 U/L (15-37) 21 U/L (15-37) (AST/SGOT) Alanine Aminotransferase 28 U/L (12-78) 29 U/L (12-78) 28 U/L (12-78) (ALT/SGPT) Alkaline Phosphatase 70 U/L (45-117) 80 U/L (45-117) 75 U/L (45-117) Total Protein 7.5 GM/DL 8.4 GM/DL 7.9 GM/DL (6.4-8.2) (6.4-8.2) (6.4-8.2) Albumin 1.4 GM/DL 1.4 GM/DL 1.4 GM/DL (3.4-5.0) (3.4-5.0) (3.4-5.0) Differential Total Cells 100 Counted Neutrophils % (Manual) 74 % (16-70) Band Neutrophils % 5 % (0-6) Lymphocytes % 13 % (9-44) Monocytes % 1 % (0-8) Eosinophils % 5 % (0-4) Basophils % 1 % (0-2) Neutrophils # (Manual) 5.8 TH/MM3 (1.8-7.7) Plasma Cells 1 % (0-0) Platelet Estimate NORMAL NORMAL (NORMAL) (NORMAL) Platelet Morphology Comment NORMAL NORMAL (NORMAL) (NORMAL) Rouleau PRESENT (NORMAL) Red Cell Morphology Comment NORMAL (NORMAL) . Result Diagram: 08/06/1652408/06/16524 Microbiology Microbiology Date/Time Procedure Status Source Growth 08/03/16 08:20 Gram Stain - Final Complete Sputum Endotracheal 08/03/16 08:20 Sputum Culture - Final Complete Pseudomonas Aeruginosa . Imaging Last Impressions Chest X-Ray 08/05/16 0000 Signed Impressions: Service Date/Time: Friday, August 05, 2016 12:38 - CONCLUSION: Mild improvement of bilateral airspace disease. Small right pleural effusion. Uli Atkins MD Abdomen/Pelvis CT 07/30/16 0000 Signed Impressions: Service Date/Time: Saturday, July 30, 2016 07:57 - CONCLUSION: 1. No retroperitoneal hematoma. 2. Bibasilar pulmonary consolidations with small effusions. 3. Chronic pancreatitis. No acute inflammation observed. 4. 2 ventral hernias. 5. IVC filter. 6. 3.6 x 3.1 cm AAA. Omer Cheng Jr., MD Abdomen X-Ray 07/24/16 0749 Signed Impressions: Service Date/Time: July 08:28 - CONCLUSION: Air-filled bowel loops centrally but no obstruction seen. Uli Atkins MD Renal Ultrasound 07/20/16 0000 Signed Impressions: Service Date/Time: Wednesday, July 20, 2016 14:32 - CONCLUSION: 1. No acute findings. Renal ultrasound unremarkable. Bladder was not well-visualized. Jose Martin Valderrama MD Lower Extremity Ultrasound 07/20/16 0000 Signed Impressions: Service Date/Time: Wednesday, July 20, 2016 14:39 - CONCLUSION: Negative exam with no evidence of deep venous thrombosis. Alonzo Bradshaw MD Head CT 07/20/16 0000 Signed Impressions: Service Date/Time: Wednesday, July 20, 2016 18:21 - CONCLUSION: 1. No acute intracranial abnormalities. Mild mucosal thickening of the ethmoid air cells. Jose Martin Valderrama MD Chest CT 07/20/16 0000 Signed Impressions: Service Date/Time: Wednesday, July 20, 2016 11:28 - CONCLUSION: 1. Chronic scarring in the lung bases left greater than right. 2. No focal consolidation. 3. Bilateral adrenal masses left greater than right most consistent with adenomas. 4. Nonspecific bowel gas pattern noted in the upper abdomen with air-fluid levels in the small bowel. Alonzo Bradshaw MD . Procedures * Intubation/mechanical ventilation 07/20/16 * Left internal jugular central line placement 07/20/16 * Right jugular vas-cath placement * CRRT * Extubated and re-intubated 08/02/16 . Assessment and Plan Disease Oriented Problem List: (1) Severe sepsis with acute organ dysfunction Comment: Blood cx growing out Group A strep . (2) Respiratory failure (3) Ventilator associated pneumonia Comment: Sputum cx of 07/30/16 growing Pseudomonas. (4) Lactic acidosis Comment: Improved -- but metabolic acidosis persists with elevated anion gap. . (5) Hypoxia (6) Metabolic acidosis Comment: This has remained profound and persistent in spite of normalization of lactic acid for several days. Now improved. . . (7) Acute kidney injury Comment: Requiring dialysis. Renal function appears to no be improving. . . (8) Elevated troponin (9) Hypoalbuminemia (10) Thrombocytopenia Comment: Resolved. (11) History of DVT (deep vein thrombosis) (12) Chronic anticoagulation (13) Hypertension (14) Peripheral vascular disease (15) Dyslipidemia Symptom Scale: (1) Pain 0-10 Scale: Unable to quantify Comment: Patient has chronic pain mostly in the lower extremities from a combination of peripheral vascular disease and diabetic neuropathy. He had been prescribed opiates in the past but normally takes no analgesics because he doesn't like the side effects. Additional sources of discomfort at this time would include prolonged bedbound status; orotracheal/orogastric intubations; Connelly catheter; vascular access lines. Patient denies pain today. . . (2) Dyspnea 0-10 Scale: Unable to quantify (dyspnea seems managed with mechanical ventilation.) Comment: Controlled on ventilator. Now tolerating CPAP trials. . . (3) Encephalopathy 0-10 Scale: Unable to quantify Comment: Encephalopathy is most likely multifactorial and in large part due to the septic shock. Based on the history, it is unlikely that the duration of hypoglycemia or hypotension would've caused any type of permanent damage. There is no prior history of underlying dementia. Patient now improving slowly. . Pertinent Non-Medical Issues Psychosocial: Patient is well supported by his spouse and daughter who live locally, many friends who live locally, and 2 daughters who had flown in from [place] and [place]. Spiritual: Patient was raised in a [employer] home. Now identifies himself as a Orthodox. Yarsanism and spirituality have not played a large part in his life of late. Legal: reports the patient has completed an advanced directive. She will bring a copy into scanned into the medical record. Ethical issues impacting care: Patient is currently incapacitated to make his own health care decisions. He seems to be becoming more awake and alert. We are hopeful he will ultimately become capacitated to make his won health care decisions. . Important Contacts == Spouse (Alysia Lemus) [phone] == Daughter (Adenike) [phone] . Prognosis Though Mr Lemus has been quite critically ill with septic shock and multiple organs being affected, it is also important to note that in spite of his underlying chronic illnesses , his functional status was reasonably good prior to becoming acutely ill so suddenly. Family, understandably, want to give him a chance to see if he is able to get through this acute period. He had a similar episode of severe illness approximately 10 years ago after being hospitalized with a ruptured appendix. Family has witnessed him being able to recover from that. Patient now showing some signs of recovery. Family has become more optimistic. There will be a challenging road ahead of him but goals at this point remain aggressive. . . . Code Status: Full Code Plan == Code Status : FULL CODE == Decision Making: The patient is currently incapacitated to make his own health care decisions. He is improving, however, and there is certainly a chance he will be able to make his own health care decision in the future. as said she will bring in the patient's completed advanced directive but she has not done that to date. informs me that she is listed as the designated health care surrogate. If there is no advanced directive, would still be asked to serve as proxy decision-maker under the hierarchy of proxy's in the [place] statutes. == Goals of medical treatment: The patient's spouse wants ongoing and full aggressive care for the time being. They have seen him improve, become interactive, and therefore want everything done -- including tracheostomy if deemed necessary. Family members desire all resuscitation attempts be tried at this point in time. On the other hand, family reports that the patient would not want to be maintained on life support if there is no hope for meaningful recovery. is even uncertain if patient would ever agree to ongoing hemodialysis. If the patient declines in spite of aggressive care will probably want to reconsider goals. == Pain: As noted above, patient has a number of different pain syndromes. Patient is able to indicate that he is not having pain at time of my visit. PRN [place] and Morphine are available, but have not been utilized since . Patient showing no signs or symptoms of nonverbal pain on exam. == Encephalopathy: Encephalopathy is most likely multifactorial and in large part due to the septic shock. Based on the history, it is unlikely that the duration of hypoglycemia or hypotension would've caused any type of permanent damage. There is no prior history of underlying dementia. There has been slow improvement in cognitive function over the last days. == Dyspnea: Dyspnea currently being controlled with the ventilator. Now tolerating intermittent CPAP trials . Secretions may be the issue that prevents another extubation trial again in the near future. If can't medically wean soon, will go forward with tracheostomy. == has said on several occasions that she would bring in a copy of the patient's advanced directive for us to scan into the electronic medical record. Has not arrived yet. Have asked nursing staff to request this as well. I believe the is resistant to this idea. == Palliative care will continue to follow to assist with symptom management and to further clarify goals of medical treatment as the clinical course evolves. . Attestation To help prompt me to consider important information that might be impacting today's encounter and assessment, information from prior notes written by myself or my colleagues may have been "brought forward" into today's note. My signature on this note, however, is an attestation that I personally performed the exam, history, and/or decision-making noted today, and, unless otherwise indicated, the interactions with patient, family, and staff as well as the review of records all occurred today. I also attest that the listed assessment and stated plan reflect my best clinical judgment today based on the combination of historical information, prior notes, and today's exam/ interactions. When time spent is documented, it refers only to time spent today by the signer, or if indicated, combined time spent today by collaborating physician/nurse practitioner. . Jameson Conklin MD August 06, 2016 18:32
[2016-08-06] MEDS: CARVEDILOL 12.5 MG TAB PO SCH ×2 (18:45→20:53)
[2016-08-07] VITALS (20 sets, daily range): BP systolic 146–160; BP diastolic 66–72; PULSE 67–96; RESP 20–26; TEMP 98.4–100.1; O2SAT 92–100
[2016-08-07] MEDS: RESP: ACETYLCYSTEINE 10% 30 ML NEB NEB SCH ×3 (00:33→16:00)
[2016-08-07] MEDS: METOCLOPRAMIDE HCL 10 MG/2 ML VIAL IV PUSH SCH ×3 (01:36→16:16)
[2016-08-07] MEDS: CHLORHEXIDINE GLUCONATE 2 % 1 PACK (2 CLOTHS) TOP SCH (04:00)
[2016-08-07 04:36] LABS: BASOPHIL # 0.1 TH/MM3 (0-0.2); BASOPHIL % 1.4 % (0.0-2.0); EOSINOPHIL # 0.3 TH/MM3 (0-0.4); HEMATOCRIT 22.3 % (39.0-51.0); LYMPHOCYTE # 0.8 TH/MM3 (1.0-4.8); MEAN CELL VOLUME 90.3 FL (80.0-100.0); MEAN CORPUSCULAR HEMOGLOBIN 29.8 PG (27.0-34.0); MONO % 5.5 % (0.0-8.0); NEUT % 73.1 % (16.0-70.0); PLATELET COUNT 212 TH/MM3 (150-450); RED BLOOD COUNT 2.47 MIL/MM3 (4.50-5.90); RED CELL DISTRIBUTION WIDTH 14.3 % (11.6-17.2); WHITE BLOOD COUNT 5.5 TH/MM3 (4.0-11.0)
[2016-08-07 04:38] LABS: HEMO FLAGS AUTO DIFF
[2016-08-07 04:46] LABS: APTT (PATIENT) 46.4 SEC (24.3-30.1)
[2016-08-07 04:50] LABS: ALT (GPT) 28 U/L (12-78); ANION GAP 13 MEQ/L (5-15); AST (GOT) 19 U/L (15-37); BICARBONATE 26.2 MEQ/L (21.0-32.0); BLOOD UREA NITROGEN 66 MG/DL (7-18); CHLORIDE 101 MEQ/L (98-107); GLOMERULAR FILTRATION RATE 11 ML/MIN (>89); POTASSIUM 3.5 MEQ/L (3.5-5.1); SODIUM (NA) 140 MEQ/L (136-145)
[2016-08-07 04:52] LABS: ALKALINE PHOSPHATASE 74 U/L (45-117); TOTAL BILIRUBIN ADULT 0.3 MG/DL (0.2-1.0)
[2016-08-07 05:10] LABS: SCAN/DIFF AUTO DIFF CONFIRMED
[2016-08-07] MEDS: INSULIN ASPART SUPPLEMENTAL SCALE SQ SCH ×3 (06:00→17:25)
[2016-08-07] MEDS: PROPOFOL 1000 MG/100 ML IV SCH ×3 (06:50→20:30)
--- NOTE | 2016-08-07 07:11 | HHI.CCPN ---
Subjective Remarks/Hospital Course 71-year-old male. Date of admission 07/20/2016. Past records includes diabetes with neuropathy and nephropathy, hypertension, dyslipidemia, chronic pain syndrome, history of DVT/PE on chronic anticoagulation, peripheral vascular disease with history of AAA, and osteoporosis. Patient recently [place] 07/06/16. Patient sick contacts would include neighbor with "vital illness. Patient is to [facility] today with acute onset of diarrhea, hypoglycemia and chills. Upon arrival, patient was noted be acutely hypoxic and required a nonrebreather mask. Patient denies pleuritic chest pain , abdominal pain but positive for nausea and diarrhea. CT chest revealed bilateral lower lobe scarring, bilateral adrenal adenomas a nonspecific bowel gas pattern. Chest x-ray revealed no significant findings. Lab work included a lactic acid elevated 7.7, white blood cell count 12,000 in acute kidney injury with a creatinine of 3.0. Baseline around 1.5-2. Troponin was slightly elevated 0.14. EKG is currently pending. Upon arrival to [facility], patient was extremely mottled with rates in the 40s. Patient was emergently intubated please see note and a left IJ central line was placed. CT of the head, abdomen and pelvis currently pending. 07/21 Patient is sedated with Diprivan and Fentanyl and intubated. On Levophed 22 mics, Vasopressin and bicarb drip. BC from 07/20: GPC all 4 bottles. 07/22 Patient remains sedated and intubated On Levophed 22 mics, vasopressin and bicarb drip. Awaiting to start CVVHD today 07/23: Remains sedated, orally intubated on mech ventilation. On Levophed 15 mics per minute and low-dose vasopressin for pressor support. On CRRT. 07/24: Remains sedated, orally intubated on mechanical ventilation. On Levophed 7 mics per minute and low-dose vasopressin for pressor support. CRRT was stopped at 1:30 AM due to Air in system and has now been resumed. 2 Amps of bicarbonate given for metabolic acidosis while CRRT held and bicarbonate drip was started back yesterday 07/25: Remains critically ill, on CVVH. Levoped 6 mics per minute. White count has normalized, making slight amount of urine. Showing some signs of progress 07/26: Remains sedated, orally intubated on mechanical ventilation. Remains on Levophed 3 mics per minute, vasopressin 0.03 mics per minute. CRRT continues. 07/27: Remains sedated, orally intubated on mechanical ventilation. Remains on Levophed 2 mics per minute, vasopressin 0.03 mics per minute. On CRRT. 07/28: Remains sedated, orally intubated on mechanical ventilation. Off Levophed. Remains on vasopressin. CRRT clotted off this morning and is on hold currently. Nephrology to decide regarding regular hemodialysis as patient is now off Levophed. 07/29: Sedated, arousable, orally intubated on mechanical ventilation. Off Levophed and vasopressin drips. To be initiated on hemodialysis today. Tolerating tube feeds. 07/30: Sedated, arousable, orally intubated on mechanical ventilation. Hemoglobin dropped to 6.9 this morning no evidence of melena or rectal bleeding noted. Stat CT abdomen pelvis did not reveal any evidence of retroperitoneal hematoma. Patient is maintaining his blood pressure and has not had any hypotension. 2 units PRBCs ordered this morning. 07/31: Sedated, arousable, orally intubated on mechanical ventilation. Underwent hemodialysis this morning. 08/01: Arousable off sedation, weakly grasps on command and wiggles toes. Remains orally intubated on mechanical ventilation. Tolerating tube feeds. 08/02: Awake off sedation, orally intubated on mechanical ventilation. Tolerating tube feeds. Awaiting hemodialysis today. 08/03: Patient failed extubation on 08/02 and required reintubation due to inability to mobilize secretions and worsening hypoxia about 8 hours following extubation. Sedated, orally intubated on mechanical ventilation. Started on Mucomyst and percussion therapy to mobilize secretions. 08/04: Remains sedated, orally intubated on mechanical ventilation. Significant pulmonary secretions being suctioned out following initiation of Mucomyst and percussion therapy per overnight ACCOUNTS PAYABLE OR RECEIVABLE CLERK. Tolerating tube feeds. 08/05: Arousable off sedation, orally intubated on mechanical ventilation. Underwent hemodialysis today. Still has copious pulmonary secretions though these are being mobilized with Mucomyst and percussion therapy. Tolerating tube feeds. On C Pap trial to decide extubation. If he fails extubation or is unable to get extubated today will consider for tracheostomy tomorrow. 08/06: failing CPAP trials for tachypnea. 08/07: mental status improving. BP very well controlled off cardene. plan for trach today. Objective Vital Signs Date Time Temp Pulse Resp B/P Pulse Ox O2 Delivery O2 Flow Rate FiO2 08/07/16 06:00 78 08/07/16 05:22 97 40 08/07/16 04:00 100.1 20 152/70 Intake and Output 08/06/16 08/06/16 08/07/16 08:00 16:00 00:00 Intake Total 888 ml 629 ml 545 ml Output Total 170.0 ml 475.0 ml 400.0 ml Balance 718.0 ml 154.0 ml 145.0 ml Result Diagram: 08/07/1631108/07/16311 Imaging Last 48 hours Impressions Chest X-Ray 08/02/16 1421 Signed Impressions: Service Date/Time: Tuesday, August 02, 2016 14:42 - CONCLUSION: No significant interval change in bilateral pulmonary opacity. Castillo Roldan MD Last 48 hours Impressions Chest X-Ray 08/02/16 06 Signed Impressions: Service Date/Time: Tuesday, August 02, 2016 05:47 - CONCLUSION: 1. Support apparatus in satisfactory position. Bilateral mostly basilar airspace disease and effusions similar to July 30. Jose Martin Valderrama MD Last 24 hours Impressions Chest X-Ray 07/28/16 0600 Signed Impressions: Service Date/Time: Thursday, July 28, 2016 03:09 - CONCLUSION: No significant change. Hazy opacity remains in both lungs most consistent with congestive heart failure. Alonzo Bradshaw MD Last 24 hours Impressions Chest X-Ray 07/26/16 06 Signed Impressions: Service Date/Time: Tuesday, July 26, 2016 04:56 - CONCLUSION: No significant change. Jovan Aldridge MD Last 48 hours Impressions Abdomen X-Ray 07/24/16 0749 Signed Impressions: Service Date/Time: July 08:28 - CONCLUSION: Air-filled bowel loops centrally but no obstruction seen. Uli Atkins MD Chest X-Ray 07/24/16 0600 Signed Impressions: Service Date/Time: July 05:36 - CONCLUSION: Unchanged bibasilar infiltrates. Omer Cheng Jr., MD Last Impressions Chest X-Ray 07/21/16 Signed Impressions: Service Date/Time: Thursday, July 21, 2016 22:13 - CONCLUSION: Satisfactory central line positioning. Worsening aeration. Berlin Guillermo MD Renal Ultrasound 07/20/16 Signed Impressions: Service Date/Time: Wednesday, July 20, 2016 14:32 - CONCLUSION: 1. No acute findings. Renal ultrasound unremarkable. Bladder was not well-visualized. Jose Martin Valderrama MD Lower Extremity Ultrasound 07/20/16 Signed Impressions: Service Date/Time: Wednesday, July 20, 2016 14:39 - CONCLUSION: Negative exam with no evidence of deep venous thrombosis. Alonzo Bradshaw MD Head CT 07/20/16 Signed Impressions: Service Date/Time: Wednesday, July 20, 2016 18:21 - CONCLUSION: 1. No acute intracranial abnormalities. Mild mucosal thickening of the ethmoid air cells. Jose Martin Valderrama MD Chest CT 07/20/16 Signed Impressions: Service Date/Time: Wednesday, July 20, 2016 11:28 - CONCLUSION: 1. Chronic scarring in the lung bases left greater than right. 2. No focal consolidation. 3. Bilateral adrenal masses left greater than right most consistent with adenomas. 4. Nonspecific bowel gas pattern noted in the upper abdomen with air-fluid levels in the small bowel. Alonzo Bradshaw MD Abdomen/Pelvis CT 07/20/16 Signed Impressions: Service Date/Time: Wednesday, July 20, 2016 18:24 - CONCLUSION: 1. Lower abdominal ventral midline hernia containing loop of small bowel. Small bowel is mildly distended somewhat diffusely with fluid and air. Cannot exclude a low grade partial bowel obstruction in the area of herniation. 2. No abnormal fluid collections to suggest abscess. No free air or free fluid. 3. Basilar and dependent lung consolidation, left greater than right. Pneumonia could have this appearance. Small left effusion. 4. NG tip in stomach. Inferior vena cava filter present. Connelly catheter in bladder. Jose Martin Valderrama MD Objective Remarks Drips: Propofol GENERAL: Patient is 71 yo elderly male, intubated. Laying in bed, on mechanical ventilation SKIN: Warm and dry. HEAD: Normocephalic. EYES: Pallor present. No scleral icterus. No injection or drainage. NECK: trachea midline. No JVD CARDIOVASCULAR: Regular rate and rhythm without murmurs, gallops, or rubs. RESPIRATORY: Orally intubated on mechanical ventilation, GASTROINTESTINAL: Abdomen soft, non-tender, nondistended. Bowel sounds sluggish Neuro: Arousable off sedation, orally intubated, following commands. Moves both upper extremities weakly and wiggles toes bilaterally. Extremities: Warm bilaterally, Bilateral edema Line: Central Venous Catheter A/P Assessment and Plan Neuro/Psych: Peripheral neuropathy Chronic pain syndrome Propofol drips for sedation/analgesia while intubated. Ativan IV when necessary for sedation. Goal RASS -2 Daily sedation vacation 07/20 CT brain: No acute intracranial abnormalities. CV: Elevated troponin Hypertension- improving. Dyslipidemia Lactic acidosis- resolved. Septic shock- resolved. Peripheral vascular disease History of AAA Off Stress dose steroids- Hydrocortisone decreased to 50mg daily on 07/29 and stopped on 07/31 Continue with ASA daily Echo showed EF 35-40% amlodipine 10mg po daily carvedilol 12.5mg po q12h hydralazine and labetalol prn. goal sbp < 160. Resp: Acute hypoxemic respiratory failure Tobaccoism On mechanical ventilation. Daily C Pap trials to decide extubation, failing cpap trials. Ventilator bundle. Bronchodilator therapy every 4 hours with albuterol every 2 hours. Mucomyst every 8 hours and chest percussion therapy PEEP +7 CT chest 07/20 revealed left greater than right basilar scarring. Bilateral adrenal adenomas. No focal consolidation plan for trach today. GI: Tolerating tube feeds- Nepro with goal rate 40ml/hr. Reglan 5 mg IV every 8 hours Protonix for GI prophylaxis Colace/as needed Senokot for bowel regimen CT abdomen reviewed. Gen surgery- Dr Roman- no surgical interventions. : Strict intake output, monitor and replete electrolytes, follow BUN/creatinine. Started CRRT on 07/22, being followed by nephrology Dr. Magana. CRRT on hold since 07/28. Switched to hemodialysis on 07/29. plan for IHD today. Renal US: No acute findings Endo: Diabetes mellitus with nephropathy and neuropathy Bilateral adrenal adenoma Hyperglycemia Decreased Levemir to 10 units subcutaneously every 12 hourly on 07/31. On high dose sliding scale insulin on 07/29 for better glycemic control. Off steroids. 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 HIT screen negative. Platelets have normalized. Started heparin 5000 units subcutaneously every 12 hourly on 07/29, increased to 5000 units subcutaneously every 8 hourly on 07/31. Transfused 2 units PRBCs for drop in hemoglobin to 6.9 on 07/30. CT abdomen pelvis with no evidence of retroperitoneal hematoma. Most likely secondary to blood loss with CRRT regarding multiple times. Maintaining H&H. Advanced to full anticoagulation with heparin GTT on 08/01 hold heparin 6 hours prior to trach and 6 hours post trach. ID: Strep Bacteremia Sepsis Pneumonia Continue with abx per ID - Unasyn switched to cefepime on 07/31 per ID due to pseudomonas in sputum. ID planning to initiate tobramycin nebulizer treatments. Clindamycin stopped 07/29, vanco x 1 dose on admission. Pertinent cultures BC 07/20- GPC, Group A Beta strep Urine cx 07/20 : neg Strep pneumonia nad Legionella urinary Ag negative Follow up on Sputum cx, BC 07/21, 07/22- NGTD 07/30 Sputum c/s with pseudomonas MSK: Osteoarthritis Holding vitamin D 1000 units by mouth daily. Access - piv -Right IJ vascath placed 07/22 Prophylaxis - GI - Protonix - DVT - SCD/heparin SQ. Starting Heparin gtt 08/01 for full anticoagulation. - Doppler US LE negative for DVT Palliative care is following Patient is critically ill with resp failure, renal failure, septic shock and multiorgan injury. Prognosis guarded. Updated patient's on 08/05 regarding current clinical condition and plan of care and she voiced understanding. I have also previously explained possible need for tracheostomy and PEG tube. D/W ACCOUNTS PAYABLE OR RECEIVABLE CLERK Discussed with Dr. Conklin from palliative care Vitor Barrera MD August 07, 2016 07:11
[2016-08-07] MEDS: RESP: ALBUTEROL 2.5 MG/3 ML NEB (PRN) INH (07:28)
[2016-08-07] MEDS: RESP: TOBRAMYCIN SULFATE 80 MG/2 ML NEB NEB SCH ×2 (07:28→20:00)
[2016-08-07] MEDS: CHLORHEXIDINE 0.12% (ORAL KIT) 15 ML CUP MT SCH ×2 (08:00→20:00)
[2016-08-07] MEDS: SODIUM CHLOR 0.9% 1000 ML IV PRN (08:26)
[2016-08-07] MEDS: HEPARIN SODIUM - IV 10,000 UNITS/10 ML VIAL OTHER PRN (08:26)
[2016-08-07] MEDS: GENTAMICIN SULFATE (DIALYSIS USE ONLY) 20 MG/2 ML VIAL OTHER PRN (08:27)
[2016-08-07] MEDS: PANTOPRAZOLE SODIUM 40 MG VIAL IV SCH (08:37)
[2016-08-07] MEDS: CARVEDILOL 12.5 MG TAB PO SCH ×2 (08:37→20:29)
[2016-08-07] MEDS: ASPIRIN 81 MG CHEW TAB CHEW SCH (08:37)
[2016-08-07] MEDS: SODIUM CHLORIDE 0.9% FLUSH 10 ML FLUSH IV FLUSH SCH ×2 (08:38→20:30)
[2016-08-07] MEDS: SODIUM CHLORIDE 0.9% FLUSH 10 ML FLUSH IVF SCH (08:39)
[2016-08-07] MEDS: SENNOSIDES SYRUP 8.8 MG/5 ML CUP OG-TUBE SCH (08:39)
[2016-08-07] MEDS: DOCUSATE SODIUM 100 MG CAP PO SCH ×2 (08:40→20:29)
[2016-08-07] MEDS: LACTOBACILLUS ACIDOPHILUS TAB PO SCH ×3 (08:40→18:00)
[2016-08-07] MEDS: INSULIN DETEMIR 100 UNITS/ML VIAL SQ SCH ×2 (08:40→21:45)
--- NOTE | 2016-08-07 10:27 | HHI.IDPN ---
Subjective Subjective Remarks 71-year-old male admitted to the hospital for acute onset of diarrhea, chills and hypoglycemia. Patient apparently working in the yard July 18 and July 19. He was doing okay except for complaints on his lower extremity which is apparently chronic and related to his peripheral vascular disease. That night, the noted that the patient was breathing hard. She asked the patient and he stated that he is not short of breath. He has not complained of any sore throat, has not been congested, and has eaten without any problem. He has not had any urinary complaints. That night apparently the couldn't sleep, and around 4 :00 in the morning the patient woke up and stated that he wanted to go to the bathroom. Patient didn't make it, and had stool incontinence. He was noted to have some chills, and his blood sugars were low. He also had episode of vomiting. Patient was taken to the hospital, and since admission he is developed profound hypotension, and acidosis. He ended up getting intubated, and currently on Levophed and vasopressin. His white count is elevated, lactic acid elevated, and his creatinine is also quite elevated. His urine output has been low. Cultures done in the emergency room, are now reported as growing group A strep. Notes reviewed D/W RN Low grade temps this morning Having HD Line LIJ removed yesterday Undergoing HD Had good UO last 24 hours For trach today Has not been tolerating CPAP trials BP ok Last CXR with some improvement Awake and following commands Last sputum with PSAE WBC normal Antibiotics Cefepime Tobra nebs Lines [facility] Past Medical History Reviewed Allergies: Coded Allergies: No Known Allergies (Verified , 07/20/16) Objective . Vital Signs Date Time Temp Pulse Resp B/P Pulse Ox O2 Delivery O2 Flow Rate FiO2 08/07/16 10:00 78 08/07/16 08:00 98.4 76 20 151/70 96 08/07/16 08:00 81 08/07/16 08:00 40 08/07/16 07:30 96 40 08/07/16 06:00 78 08/07/16 05:22 97 40 08/07/16 04:00 100.1 78 20 152/70 97 08/07/16 04:00 78 08/07/16 04:00 40 08/07/16 02:00 72 08/07/16 00:36 97 40 08/07/16 00:00 98.4 72 20 146/66 98 08/07/16 00:00 72 08/07/16 00:00 40 08/06/16 22:00 80 08/06/16 20:46 100 40 08/06/16 20:00 78 08/06/16 20:00 98.6 78 16 154/61 99 08/06/16 20:00 40 08/06/16 18:00 91 08/06/16 16:03 97 40 08/06/16 16:00 105 08/06/16 16:00 98.4 90 25 140/65 97 08/06/16 16:00 40 08/06/16 14:00 92 08/06/16 12:00 99.0 104 34 162/71 95 08/06/16 12:00 96 08/06/16 12:00 40 08/06/16 11:24 94 40 08/06/16 11:08 40 08/06/16 08/06/16 08/07/16 15:00 23:00 07:00 Intake Total 629 ml 545 ml 685 ml Output Total 475 ml 400 ml 400 ml Balance 154 ml 145 ml 285 ml Intake IV Total 308 ml 286 ml 387 ml Tube Feeding 291 ml 229 ml 268 ml Tube Irrigant 30 ml 30 ml 30 ml Output Urine Total 475 ml 300 ml 400 ml Stool Total 0 ml 100 ml 0 ml Tube Feeding Residual Discard 0 ml 0 ml 0 ml . Laboratory Tests Test 08/05/16 08/06/16 08/07/16 12:25 05:25 03:12 White Blood Count 7.3 TH/MM3 5.5 TH/MM3 5.5 TH/MM3 Red Blood Count 2.63 MIL/MM3 2.37 MIL/MM3 2.47 MIL/MM3 Hemoglobin 7.7 GM/DL 7.1 GM/DL 7.4 GM/DL Hematocrit 23.4 % 21.2 % 22.3 % Mean Corpuscular Volume 89.2 FL 89.7 FL 90.3 FL Mean Corpuscular Hemoglobin 29.4 PG 29.9 PG 29.8 PG Mean Corpuscular Hemoglobin 32.9 % 33.3 % 33.0 % Concent Red Cell Distribution Width 14.8 % 14.3 % 14.3 % Platelet Count 252 TH/MM3 203 TH/MM3 212 TH/MM3 Mean Platelet Volume 9.1 FL 8.7 FL 9.1 FL Neutrophils (%) (Auto) 77.4 % 68.4 % 73.1 % Lymphocytes (%) (Auto) 11.3 % 17.5 % 14.0 % Monocytes (%) (Auto) 5.7 % 6.8 % 5.5 % Eosinophils (%) (Auto) 4.5 % 5.6 % 6.0 % Basophils (%) (Auto) 1.1 % 1.7 % 1.4 % Neutrophils # (Auto) 5.7 TH/MM3 3.8 TH/MM3 4.0 TH/MM3 Lymphocytes # (Auto) 0.8 TH/MM3 1.0 TH/MM3 0.8 TH/MM3 Monocytes # (Auto) 0.4 TH/MM3 0.4 TH/MM3 0.3 TH/MM3 Eosinophils # (Auto) 0.3 TH/MM3 0.3 TH/MM3 0.3 TH/MM3 Basophils # (Auto) 0.1 TH/MM3 0.1 TH/MM3 0.1 TH/MM3 CBC Comment AUTO DIFF AUTO DIFF AUTO DIFF Differential Total Cells 100 Counted Neutrophils % (Manual) 74 % Band Neutrophils % 5 % Lymphocytes % 13 % Monocytes % 1 % Eosinophils % 5 % Basophils % 1 % Neutrophils # (Manual) 5.8 TH/MM3 Differential Comment FINAL DIFF AUTO DIFF AUTO DIFF MANUAL CONFIRMED CONFIRMED Plasma Cells 1 % Platelet Estimate NORMAL NORMAL Platelet Morphology Comment NORMAL NORMAL Rouleau PRESENT Red Cell Morphology Comment NORMAL Laboratory Tests Test 08/05/16 08/06/16 08/07/16 12:25 05:25 03:12 Sodium Level 140 MEQ/L 139 MEQ/L 140 MEQ/L Potassium Level 3.4 MEQ/L 3.5 MEQ/L 3.5 MEQ/L Chloride Level 101 MEQ/L 100 MEQ/L 101 MEQ/L Carbon Dioxide Level 27.2 MEQ/L 28.8 MEQ/L 26.2 MEQ/L Anion Gap 12 MEQ/L 10 MEQ/L 13 MEQ/L Blood Urea Nitrogen 45 MG/DL 57 MG/DL 66 MG/DL Creatinine 3.57 MG/DL 4.76 MG/DL 5.29 MG/DL Estimat Glomerular Filtration 17 ML/MIN 12 ML/MIN 11 ML/MIN Rate Random Glucose 160 MG/DL 164 MG/DL 120 MG/DL Calcium Level 7.6 MG/DL 7.2 MG/DL 7.5 MG/DL Total Bilirubin 0.4 MG/DL 0.4 MG/DL 0.3 MG/DL Aspartate Amino Transf 25 U/L 21 U/L 19 U/L (AST/SGOT) Alanine Aminotransferase 29 U/L 28 U/L 28 U/L (ALT/SGPT) Alkaline Phosphatase 80 U/L 75 U/L 74 U/L Total Protein 8.4 GM/DL 7.9 GM/DL 8.4 GM/DL Albumin 1.4 GM/DL 1.4 GM/DL 1.4 GM/DL Protein Corrected Calcium 6.9 MG/DL Imaging Chest X-Ray 08/05/16 0000 Signed Impressions: Service Date/Time: Friday, August 05, 2016 12:38 - CONCLUSION: Mild improvement of bilateral airspace disease. Small right pleural effusion. Uli Atkins MD Chest X-Ray 08/02/16 142 Signed Impressions: Service Date/Time: Tuesday, August 02, 2016 14:42 - CONCLUSION: No significant interval change in bilateral pulmonary opacity. Castillo Roldan MD Chest X-Ray 08/02/16 0600 Signed Impressions: Service Date/Time: Tuesday, August 02, 2016 05:47 - CONCLUSION: 1. Support apparatus in satisfactory position. Bilateral mostly basilar airspace disease and effusions similar to July 30. Jose Martin Valderrama MD Chest X-Ray 08/02/16 142 Signed Impressions: Service Date/Time: Tuesday, August 02, 2016 14:42 - CONCLUSION: No significant interval change in bilateral pulmonary opacity. Castillo Roldan MD Abdomen/Pelvis CT 07/30/16 0000 Signed Impressions: Service Date/Time: Saturday, July 30, 2016 07:57 - CONCLUSION: 1. No retroperitoneal hematoma. 2. Bibasilar pulmonary consolidations with small effusions. 3. Chronic pancreatitis. No acute inflammation observed. 4. 2 ventral hernias. 5. IVC filter. 6. 3.6 x 3.1 cm AAA. Omer Cheng Jr., MD Abdomen X-Ray 07/24/16 0749 Signed Impressions: Service Date/Time: July 08:28 - CONCLUSION: Air-filled bowel loops centrally but no obstruction seen. Uli Atkins MD Renal Ultrasound 07/20/16 Signed Impressions: Service Date/Time: Wednesday, July 20, 2016 14:32 - CONCLUSION: 1. No acute findings. Renal ultrasound unremarkable. Bladder was not well-visualized. Jose Martin Valderrama MD Lower Extremity Ultrasound 07/20/16 Signed Impressions: Service Date/Time: Wednesday, July 20, 2016 14:39 - CONCLUSION: Negative exam with no evidence of deep venous thrombosis. Alonzo Bradshaw MD Head CT 07/20/16 Signed Impressions: Service Date/Time: Wednesday, July 20, 2016 18:21 - CONCLUSION: 1. No acute intracranial abnormalities. Mild mucosal thickening of the ethmoid air cells. Jose Martin Valderrama MD Chest CT 07/20/16 Signed Impressions: Service Date/Time: Wednesday, July 20, 2016 11:28 - CONCLUSION: 1. Chronic scarring in the lung bases left greater than right. 2. No focal consolidation. 3. Bilateral adrenal masses left greater than right most consistent with adenomas. 4. Nonspecific bowel gas pattern noted in the upper abdomen with air-fluid levels in the small bowel. Alonzo Bradshaw MD Chest X-Ray 08/02/16599 Signed Impressions: Service Date/Time: Tuesday, August 02, 2016 05:47 - CONCLUSION: 1. Support apparatus in satisfactory position. Bilateral mostly basilar airspace disease and effusions similar to July 30. Jose Martin Valderrama MD Chest X-Ray 07/30/16599 Signed Impressions: Service Date/Time: Saturday, July 30, 2016 05:07 - CONCLUSION: 1. Interval increase in hazy opacity in the right lung. 2. Bilateral effusions are again noted with cardiomegaly and the findings are most characteristic of congestive heart failure. Alonzo Bradshaw MD Abdomen/Pelvis CT 07/30/16 Signed Impressions: Service Date/Time: Saturday, July 30, 2016 07:57 - CONCLUSION: 1. No retroperitoneal hematoma. 2. Bibasilar pulmonary consolidations with small effusions. 3. Chronic pancreatitis. No acute inflammation observed. 4. 2 ventral hernias. 5. IVC filter. 6. 3.6 x 3.1 cm AAA. Omer Cheng Jr., MD Chest X-Ray 07/28/16599 Signed Impressions: Service Date/Time: Thursday, July 28, 2016 03:09 - CONCLUSION: No significant change. Hazy opacity remains in both lungs most consistent with congestive heart failure. Alonzo Bradshaw MD Chest X-Ray 07/28/16 0600 Signed Impressions: Service Date/Time: Thursday, July 28, 2016 03:09 - CONCLUSION: No significant change. Hazy opacity remains in both lungs most consistent with congestive heart failure. Alonzo Bradshaw MD Abdomen X-Ray 07/24/16 0749 Signed Impressions: Service Date/Time: July 08:28 - CONCLUSION: Air-filled bowel loops centrally but no obstruction seen. Uli Atkins MD Renal Ultrasound 07/20/16 0000 Signed Impressions: Service Date/Time: Wednesday, July 20, 2016 14:32 - CONCLUSION: 1. No acute findings. Renal ultrasound unremarkable. Bladder was not well-visualized. Jose Martin Valderrama MD Lower Extremity Ultrasound 07/20/16 0000 Signed Impressions: Service Date/Time: Wednesday, July 20, 2016 14:39 - CONCLUSION: Negative exam with no evidence of deep venous thrombosis. Alonzo Bradshaw MD Head CT 07/20/16 0000 Signed Impressions: Service Date/Time: Wednesday, July 20, 2016 18:21 - CONCLUSION: 1. No acute intracranial abnormalities. Mild mucosal thickening of the ethmoid air cells. Jose Martin Valderrama MD Chest CT 07/20/16 0000 Signed Impressions: Service Date/Time: Wednesday, July 20, 2016 11:28 - CONCLUSION: 1. Chronic scarring in the lung bases left greater than right. 2. No focal consolidation. 3. Bilateral adrenal masses left greater than right most consistent with adenomas. 4. Nonspecific bowel gas pattern noted in the upper abdomen with air-fluid levels in the small bowel. Alonzo Bradshaw MD Abdomen/Pelvis CT 07/20/16 0000 Signed Impressions: Service Date/Time: Wednesday, July 20, 2016 18:24 - CONCLUSION: 1. Lower abdominal ventral midline hernia containing loop of small bowel. Small bowel is mildly distended somewhat diffusely with fluid and air. Cannot exclude a low grade partial bowel obstruction in the area of herniation. 2. No abnormal fluid collections to suggest abscess. No free air or free fluid. 3. Basilar and dependent lung consolidation, left greater than right. Pneumonia could have this appearance. Small left effusion. 4. NG tip in stomach. Inferior vena cava filter present. Connelly catheter in bladder. Jose Martin Valderrama MD Physical Exam GENERAL: awake, following some commands, on the vent, NAD SKIN: Cool and dry. No generalized rash. HEAD: Atraumatic. Normocephalic. No temporal or scalp tenderness. EYES: [place] conjunctivae. No scleral icterus. No injection or drainage. ENT: Nose without bleeding, or purulent drainage. Endotracheal tube is in the mouth, has moist mucosa. NECK: Supple, nontender, no meningeal signs. CARDIOVASCULAR: Regular rate and rhythm without murmurs, gallops, or rubs. RESPIRATORY: Coarse rhonchi GASTROINTESTINAL: Abdomen soft, globular, bowel sounds are present and normoactive. Not tender. No hepato-splenomegaly, or palpable masses. MUSCULOSKELETAL: Extremities without clubbing, cyanosis, or edema. . Feet warm. No joint effusion, or edema noted. NEUROLOGICAL: Awake following all commands LINE: RIJ line with no evidence of infection : Connelly in place, urine looks clear Assessment & Plan Remarks IMPRESSION Group A Strep sepsis, with shock, MOSF, present on admission, source is not established - ?primary bacteremia, ?respiratory - echo valves look ok - no other (+) BC except the ones on admission Respiratory failure, extubated 08/02, reintubated 08/03 - difficulty managing secretion PSAE PNA Renal failure, S/P CVVHD, on HD Thrombocytopenia due to sepsis, no DIC - resolved Known DM, HTN, PVD, CAD Diarrhea, abx associated Fevers, better - has PSAE in sputum RECOMMENDATION Monitor temps Continue Cefepime - should also Rx GAS - if stable will D/C next day or 2 Would give 14 days Rx for GAS Aerosol Tobra Monitor progress For trach today Spoke with D/W Ceci Caicedo MD August 07, 2016 10:27
[2016-08-07] MEDS: CEFEPIME INJ 1,000 MG in SODIUM CHLORIDE 0.9% INJ 100 ML IV SCH (13:44)
[2016-08-07] MEDS ORDERED: CISATRACURIUM BESYLATE 200 MG/20 ML VIAL IV ONE (17:00)
[2016-08-07] MEDS ORDERED: CISATRACURIUM BESYLATE 20 MG/10 ML VIAL IV ONE (17:00)
[2016-08-07] MEDS ORDERED: MIDAZOLAM HCL 5 MG/ML VIAL (1 ML) IM ONE (17:00)
--- NOTE | 2016-08-07 17:45 | HHI.NPPN ---
Subjective History of Present Illness 71-year-old male with past medical history of diabetes mellitus, hypertension, ischemic heart disease, peripheral neuropathy, chronic kidney disease, history of deep vein thrombosis, hyperlipidemia was brought to the hospital because of generalized weakness, confusion and vomiting and diarrhea. I was called to see the patient because of elevated BUN and creatinine. The patient has history of acute kidney injury in the past and chronic kidney disease. His creatinine was around 1.2 to 1.4, this was in 2012. Additional Remarks Patient remain intubated, awake, clinically same. Review of Systems General Constitutional: Fatigue Respiratory Lungs: SOB, Cough, Sputum, Wheeze Objective Data Data 08/06/16 08/07/16 19:00 07:00 Intake Total 629 ml 1230 ml Output Total 475.0 ml 800.0 ml Balance 154.0 ml 430.0 ml Intake IV Total 308 ml 673 ml Tube Feeding 291 ml 497 ml Tube Irrigant 30 ml 60 ml Output Urine Total 475 ml 700 ml Stool Total 0 ml 100 ml Tube Feeding Residual Discard 0 ml 0 ml Vital Signs Date Time Temp Pulse Resp B/P Pulse Ox O2 Delivery O2 Flow Rate FiO2 08/07/16 16:00 99.3 83 21 156/69 95 08/07/16 16:00 82 08/07/16 16:00 40 08/07/16 14:00 74 08/07/16 13:31 94 40 08/07/16 12:00 74 08/07/16 12:00 98.4 67 21 150/67 94 08/07/16 12:00 40 08/07/16 10:41 96 40 08/07/16 10:00 78 08/07/16 08:00 98.4 76 20 151/70 96 08/07/16 08:00 81 08/07/16 08:00 40 08/07/16 07:30 96 40 08/07/16 06:00 78 08/07/16 05:22 97 40 08/07/16 04:00 100.1 78 20 152/70 97 08/07/16 04:00 78 08/07/16 04:00 40 08/07/16 02:00 72 08/07/16 00:36 97 40 08/07/16 00:00 98.4 72 20 146/66 98 08/07/16 00:00 72 08/07/16 00:00 40 08/06/16 22:00 80 08/06/16 20:46 100 40 08/06/16 20:00 78 08/06/16 20:00 98.6 78 16 154/61 99 08/06/16 20:00 40 08/06/16 18:00 91 -: 08/07/16 0312 08/07/16 0312 Physical Exam General Appearance: No Acute Distress, Anxious Eyes Eye Exam: Pupils Equal Throat Throat Exam: Oral Mucosa [place] & Moist Neck Neck Exam: Neck Supple Pulmonary Resp Exam: Rhonchi, Decreased Bases, Diminished Breath Sounds, Poor Inspiratory Effort Cardiology CV Exam: Regular, Normal Sinus Rhythm Gastrointestinal/Abdomen GI Exam: Soft, Non-Tender, Bowel Sounds Present Extremeties Extremities Exam: Trace Edema Neurologic Neuro Exam: Alert, Awake Psychiatric Psych Exam: Appropriate Responses Assessment/Plan Assessment Summary: ADALID/Acute Renal Failure Electrolyte Assessment: Metabolic Acidosis Problem List: (1) Diabetes mellitus with neuropathy (2) Leukocytosis (3) Peripheral vascular disease (4) Severe sepsis with acute organ dysfunction (5) History of DVT (deep vein thrombosis) (6) Hypoxia (7) Acidosis (8) Lactic acidosis Plan Patient has some improvement in the urine out put. BP is has improved off pressors. BC results noted, seen by ID. On Unasyn and Flagyl, ID following. Repeat BC negative. Off pressors and the BP is stable. Creatinine still elevated, HD done yesterday, and tolerated well. Urine out put is better today. Still has elevated Creatinine, HD in AM. Weaning as per CCM. Problem Qualifiers (1) Diabetes mellitus with neuropathy: Qualified Code: E11.40 - Type 2 diabetes mellitus with diabetic neuropathy, unspecified fdc insulin use status (2) Leukocytosis: Qualified Code: D72.829 - Leukocytosis, unspecified type Frank Magana MD August 07, 2016 17:45
--- NOTE | 2016-08-07 18:12 | PD.PROCEDR ---
Procedure Note Procedure Procedure: Fiberoptic Bronchoscopy guidance for tracheostomy Diagnosis/Indication: Respiratory failure, unable to wean off the ventilator Consent: Informed consent obtained and a time out performed Anesthesia: Continue sedation with propofol at 20 mics grams per kilogram per minute. Total 100 g of fentanyl, 5 mg IV Versed given for pain control and additional sedation. Neuromuscular paralysis with Nimbex 20 mg Description of the Procedure: The patient was sedated and mechanically ventilated, was placed on 100% FIO2 and a volume control mode of ventilation. The fiberoptic bronchoscopy was inserted via endotracheal tube and the ETT was withdrawn slowly to 17 CM. The trachea, right and left mainstem bronchi, and sub -segmental bronchi were evaluated. The endobronchial anatomy was normal. Insertion of introducer needle, guidewire, followed by serial [place] dilation and tracheostomy placement was directly visualized on video bronchoscopy. (see separate tracheostomy procedure note from Dr. Barrera). After tracheostomy placement, position was confirmed by introducing the bronchoscope through the new trach and visualizing the main krissy. The patient tolerated the procedure well with no hemodynamic instability or hypoxia. There were no immediate complications noted. A chest x-ray has been ordered. I personally performed the procedure. Andrey Brown MD August 07, 2016 18:12
--- NOTE | 2016-08-07 18:26 | HHI.HCPN ---
Reason for visit a. To assist with evaluation and management of symptoms including: dyspnea; pain; encephalopathy b. To assist medical decision maker(s) with: better understanding of current medical conditions; weighing benefits/burdens of medical treatment options; making medical treatment decisions. . Subjective/Interval History INTERVAL NOTE No significant change overnight. Mr. Lemus remains in the SICU. He is off sedation at time of my visit. Dialysis was just completed upon my arrival. On full vent support overnight and this AM. Wide awake at time of my visit. He shakes his head "no" when asked about pain/sob. There has been no opiate use since 08/01/16. He is able to follow complicated commands though response is slow. Tracheostomy is planned later today. Tmax 100.4. Other VS stable. Urine output up to 1175 cc Renal function otherwise not improving. Albumin 1.4 . Family/friend interactions at bedside. She came in early to be present for tracheostomy. She is hoping PT will start soon. . Advance Directives Living Will: Completed, but not made available Health Care Surrogate: Completed, but not made available Durable Power of Assistant Accounting Manager: Never completed Advance Directive Specifics Date completed: has been asked to bring in the advance directives several times. She indicates she will, but then does not follow through. She may not want to do this. . Health Care Surrogate(s): has been asked to bring in the advance directives several times. She indicates she will, but then does not follow through. She may not want to do this. .She reports that she is listed as the designated health care surrogate. . Documented care wishes: has been asked to bring in the advance directives several times. She indicates she will, but then does not follow through. She may not want to do this. . At this point we do not have any written documentation of the patient's health care goals/preferences. . Significant change in goals: Goals have remained aggressive. . Objective Vital Signs Date Time Temp Pulse Resp B/P Pulse Ox O2 Delivery O2 Flow Rate FiO2 08/07/16 16:00 99.3 83 21 156/69 95 08/07/16 16:00 82 08/07/16 16:00 40 08/07/16 14:00 74 08/07/16 13:31 94 40 08/07/16 12:00 74 08/07/16 12:00 98.4 67 21 150/67 94 08/07/16 12:00 40 08/07/16 10:41 96 40 08/07/16 10:00 78 08/07/16 08:00 98.4 76 20 151/70 96 08/07/16 08:00 81 08/07/16 08:00 40 08/07/16 07:30 96 40 08/07/16 06:00 78 08/07/16 05:22 97 40 08/07/16 04:00 100.1 78 20 152/70 97 08/07/16 04:00 78 08/07/16 04:00 40 08/07/16 02:00 72 08/07/16 00:36 97 40 08/07/16 00:00 98.4 72 20 146/66 98 08/07/16 00:00 72 08/07/16 00:00 40 08/06/16 22:00 80 08/06/16 20:46 100 40 08/06/16 20:00 78 08/06/16 20:00 98.6 78 16 154/61 99 08/06/16 20:00 40 Intake & Output 08/07/16 08/07/16 07:00 19:00 Intake Total 1230 ml 395 ml Output Total 800.0 ml 2750 ml Balance 430.0 ml -2355 ml Intake IV Total 673 ml 258 ml Tube Feeding 497 ml 77 ml Tube Irrigant 60 ml 60 ml Output Urine Total 700 ml 350 ml Stool Total 100 ml 100 ml Tube Feeding Residual Discard 0 ml Hemodialysis 2300 ml . Physical Exam CONSTITUTIONAL/GENERAL: This is an overweight male intubated , in the SICU. Eyes are open; shakes his head "no" when asked about pain. Can follow complicated commands. No evidence of distress. TUBES/LINES/DRAINS: Orotracheal tube; orogastric tube; left internal jugular central line; vas-cath right internal jugular; SCDs; Connelly catheter; rectal tube SKIN: No jaundice, rashes, or lesions. No wounds seen anteriorly. Skin temperature normal. EYES: Pupils equal and round. No scleral icterus. No injection or drainage. Fundi not examined. ENT: Appears to hear me fine. Nose without bleeding or purulent drainage. No oropharyngeal abnormalities seen around orotracheal and orogastric tubes. NECK: Trachea midline. CARDIOVASCULAR: Regular rhythm without murmurs, gallops, or rubs. No JVD. RESPIRATORY/CHEST: Orotracheally intubated. Air movement diminished bilaterally at bases but symmetric. No audible ronchi/wheezes at time of my visit. GASTROINTESTINAL: Abdomen soft, non-tender, slightly distended. Rectal tube in place with dark stool in bag. GENITOURINARY: Without palpable bladder distension. Connelly catheter in place. MUSCULOSKELETAL: Extremities without clubbing, cyanosis. 1+ hand edema. No mottling. NEUROLOGICAL: Eyes open. Shakes/nods head appropriately to questions. Follows some complex commands. Moves all extremities. PSYCHIATRIC: Difficult to assess for anxiety/depression. No obvious psychotic process. . Diagnostic Tests Laboratory Laboratory Tests Test 08/05/16 08/05/16 08/06/16 08/07/16 05:55 12:25 05:25 03:12 Activated Partial 43.4 SEC 44.5 SEC 46.4 SEC Thromboplast Time (24.3-30.1) (24.3-30.1) (24.3-30.1) White Blood Count 7.3 TH/MM3 5.5 TH/MM3 5.5 TH/MM3 (4.0-11.0) (4.0-11.0) (4.0-11.0) Red Blood Count 2.63 MIL/MM3 2.37 MIL/MM3 2.47 MIL/MM3 (4.50-5.90) (4.50-5.90) (4.50-5.90) Hemoglobin 7.7 GM/DL 7.1 GM/DL 7.4 GM/DL (13.0-17.0) (13.0-17.0) (13.0-17.0) Hematocrit 23.4 % 21.2 % 22.3 % (39.0-51.0) (39.0-51.0) (39.0-51.0) Mean Corpuscular Volume 89.2 FL 89.7 FL 90.3 FL (80.0-100.0) (80.0-100.0) (80.0-100.0) Mean Corpuscular Hemoglobin 29.4 PG 29.9 PG 29.8 PG (27.0-34.0) (27.0-34.0) (27.0-34.0) Mean Corpuscular Hemoglobin 32.9 % 33.3 % 33.0 % Concent (32.0-36.0) (32.0-36.0) (32.0-36.0) Red Cell Distribution Width 14.8 % 14.3 % 14.3 % (11.6-17.2) (11.6-17.2) (11.6-17.2) Platelet Count 252 TH/MM3 203 TH/MM3 212 TH/MM3 (150-450) (150-450) (150-450) Mean Platelet Volume 9.1 FL 8.7 FL 9.1 FL (7.0-11.0) (7.0-11.0) (7.0-11.0) Neutrophils (%) (Auto) 77.4 % 68.4 % 73.1 % (16.0-70.0) (16.0-70.0) (16.0-70.0) Lymphocytes (%) (Auto) 11.3 % 17.5 % 14.0 % (9.0-44.0) (9.0-44.0) (9.0-44.0) Monocytes (%) (Auto) 5.7 % (0.0-8.0) 6.8 % (0.0-8.0) 5.5 % (0.0-8.0) Eosinophils (%) (Auto) 4.5 % (0.0-4.0) 5.6 % (0.0-4.0) 6.0 % (0.0-4.0) Basophils (%) (Auto) 1.1 % (0.0-2.0) 1.7 % (0.0-2.0) 1.4 % (0.0-2.0) Neutrophils # (Auto) 5.7 TH/MM3 3.8 TH/MM3 4.0 TH/MM3 (1.8-7.7) (1.8-7.7) (1.8-7.7) Lymphocytes # (Auto) 0.8 TH/MM3 1.0 TH/MM3 0.8 TH/MM3 (1.0-4.8) (1.0-4.8) (1.0-4.8) Monocytes # (Auto) 0.4 TH/MM3 0.4 TH/MM3 0.3 TH/MM3 (0-0.9) (0-0.9) (0-0.9) Eosinophils # (Auto) 0.3 TH/MM3 0.3 TH/MM3 0.3 TH/MM3 (0-0.4) (0-0.4) (0-0.4) Basophils # (Auto) 0.1 TH/MM3 0.1 TH/MM3 0.1 TH/MM3 (0-0.2) (0-0.2) (0-0.2) CBC Comment AUTO DIFF AUTO DIFF AUTO DIFF Differential Total Cells 100 Counted Neutrophils % (Manual) 74 % (16-70) Band Neutrophils % 5 % (0-6) Lymphocytes % 13 % (9-44) Monocytes % 1 % (0-8) Eosinophils % 5 % (0-4) Basophils % 1 % (0-2) Neutrophils # (Manual) 5.8 TH/MM3 (1.8-7.7) Differential Comment FINAL DIFF AUTO DIFF AUTO DIFF MANUAL CONFIRMED CONFIRMED Plasma Cells 1 % (0-0) Platelet Estimate NORMAL NORMAL (NORMAL) (NORMAL) Platelet Morphology Comment NORMAL NORMAL (NORMAL) (NORMAL) Rouleau PRESENT (NORMAL) Sodium Level 140 MEQ/L 139 MEQ/L 140 MEQ/L (136-145) (136-145) (136-145) Potassium Level 3.4 MEQ/L 3.5 MEQ/L 3.5 MEQ/L (3.5-5.1) (3.5-5.1) (3.5-5.1) Chloride Level 101 MEQ/L 100 MEQ/L 101 MEQ/L (98-107) (98-107) (98-107) Carbon Dioxide Level 27.2 MEQ/L 28.8 MEQ/L 26.2 MEQ/L (21.0-32.0) (21.0-32.0) (21.0-32.0) Anion Gap 12 MEQ/L (5-15) 10 MEQ/L (5-15) 13 MEQ/L (5-15) Blood Urea Nitrogen 45 MG/DL (7-18) 57 MG/DL (7-18) 66 MG/DL (7-18) Creatinine 3.57 MG/DL 4.76 MG/DL 5.29 MG/DL (0.60-1.30) (0.60-1.30) (0.60-1.30) Estimat Glomerular Filtration 17 ML/MIN (>89) 12 ML/MIN (>89) 11 ML/MIN (>89) Rate Random Glucose 160 MG/DL 164 MG/DL 120 MG/DL (74-106) (74-106) (74-106) Calcium Level 7.6 MG/DL 7.2 MG/DL 7.5 MG/DL (8.5-10.1) (8.5-10.1) (8.5-10.1) Total Bilirubin 0.4 MG/DL 0.4 MG/DL 0.3 MG/DL (0.2-1.0) (0.2-1.0) (0.2-1.0) Aspartate Amino Transf 25 U/L (15-37) 21 U/L (15-37) 19 U/L (15-37) (AST/SGOT) Alanine Aminotransferase 29 U/L (12-78) 28 U/L (12-78) 28 U/L (12-78) (ALT/SGPT) Alkaline Phosphatase 80 U/L (45-117) 75 U/L (45-117) 74 U/L (45-117) Total Protein 8.4 GM/DL 7.9 GM/DL 8.4 GM/DL (6.4-8.2) (6.4-8.2) (6.4-8.2) Albumin 1.4 GM/DL 1.4 GM/DL 1.4 GM/DL (3.4-5.0) (3.4-5.0) (3.4-5.0) Red Cell Morphology Comment NORMAL (NORMAL) Protein Corrected Calcium 6.9 MG/DL (8.5-10.1) . Result Diagram: 08/07/16 0312 08/07/16 0312 Microbiology Microbiology Date/Time Procedure Status Source Growth 08/03/16 08:20 Gram Stain - Final Complete Sputum Endotracheal 08/03/16 08:20 Sputum Culture - Final Complete Pseudomonas Aeruginosa . Imaging Last Impressions Chest X-Ray 08/05/16 0000 Signed Impressions: Service Date/Time: Friday, August 05, 2016 12:38 - CONCLUSION: Mild improvement of bilateral airspace disease. Small right pleural effusion. Uli Atkins MD Abdomen/Pelvis CT 07/30/16 0000 Signed Impressions: Service Date/Time: Saturday, July 30, 2016 07:57 - CONCLUSION: 1. No retroperitoneal hematoma. 2. Bibasilar pulmonary consolidations with small effusions. 3. Chronic pancreatitis. No acute inflammation observed. 4. 2 ventral hernias. 5. IVC filter. 6. 3.6 x 3.1 cm AAA. Omer Cheng Jr., MD Abdomen X-Ray 07/24/16 0749 Signed Impressions: Service Date/Time: July 08:28 - CONCLUSION: Air-filled bowel loops centrally but no obstruction seen. Uli Atkins MD Renal Ultrasound 07/20/16 0000 Signed Impressions: Service Date/Time: Wednesday, July 20, 2016 14:32 - CONCLUSION: 1. No acute findings. Renal ultrasound unremarkable. Bladder was not well-visualized. Jose Martin Valderrama MD Lower Extremity Ultrasound 07/20/16 0000 Signed Impressions: Service Date/Time: Wednesday, July 20, 2016 14:39 - CONCLUSION: Negative exam with no evidence of deep venous thrombosis. Alonzo Bradshaw MD Head CT 07/20/16 0000 Signed Impressions: Service Date/Time: Wednesday, July 20, 2016 18:21 - CONCLUSION: 1. No acute intracranial abnormalities. Mild mucosal thickening of the ethmoid air cells. Jose Martin Valderrama MD Chest CT 07/20/16 0000 Signed Impressions: Service Date/Time: Wednesday, July 20, 2016 11:28 - CONCLUSION: 1. Chronic scarring in the lung bases left greater than right. 2. No focal consolidation. 3. Bilateral adrenal masses left greater than right most consistent with adenomas. 4. Nonspecific bowel gas pattern noted in the upper abdomen with air-fluid levels in the small bowel. Alonzo Bradshaw MD . Procedures * Intubation/mechanical ventilation 07/20/16 * Left internal jugular central line placement 07/20/16 * Right jugular vas-cath placement * CRRT * Extubated and re-intubated 08/02/16 . Assessment and Plan Disease Oriented Problem List: (1) Severe sepsis with acute organ dysfunction Comment: Blood cx growing out Group A strep . (2) Respiratory failure (3) Ventilator associated pneumonia Comment: Sputum cx of 07/30/16 growing Pseudomonas. (4) Lactic acidosis Comment: Improved -- but metabolic acidosis persists with elevated anion gap. . (5) Hypoxia (6) Metabolic acidosis Comment: This has remained profound and persistent in spite of normalization of lactic acid for several days. Now improved. . . (7) Acute kidney injury Comment: Requiring dialysis. Renal function appears to no be improving. . . (8) Elevated troponin (9) Hypoalbuminemia (10) Thrombocytopenia Comment: Resolved. (11) Chronic anticoagulation (12) Hypertension (13) Peripheral vascular disease (14) Dyslipidemia (15) History of DVT (deep vein thrombosis) Symptom Scale: (1) Pain 0-10 Scale: Unable to quantify Comment: Patient has chronic pain mostly in the lower extremities from a combination of peripheral vascular disease and diabetic neuropathy. He had been prescribed opiates in the past but normally takes no analgesics because he doesn't like the side effects. Additional sources of discomfort at this time would include prolonged bedbound status; orotracheal/orogastric intubations; Connelly catheter; vascular access lines. Patient denies pain today. . . (2) Dyspnea 0-10 Scale: Unable to quantify (dyspnea seems managed with mechanical ventilation.) Comment: Controlled on ventilator. Now tolerating CPAP trials. . . (3) Encephalopathy 0-10 Scale: Unable to quantify Comment: Encephalopathy is most likely multifactorial and in large part due to the septic shock. There is no prior history of underlying dementia. Patient now improving slowly. . Pertinent Non-Medical Issues Psychosocial: Patient is well supported by his spouse and daughter who live locally, many friends who live locally, and 2 daughters who had flown in from [place] and [place]. Spiritual: Patient was raised in a Voodoo home. Now identifies himself as a Yarsanism. Holiness and spirituality have not played a large part in his life of late. Legal: reports the patient has completed an advanced directive. She has been asked several times to bring a copy in to have it scanned into the EMR. She has not followed through. Ethical issues impacting care: Patient is currently incapacitated to make his own health care decisions. He seems to be becoming more awake and alert. We are hopeful he will ultimately become capacitated to make his won health care decisions. . Important Contacts == Spouse (Alysia Lemus) [phone] == Daughter (Adenike) [phone] . Prognosis Though Mr Lemus has been quite critically ill with septic shock and multiple organs being affected, it is also important to note that in spite of his underlying chronic illnesses , his functional status was reasonably good prior to becoming acutely ill so suddenly. Family, understandably, want to give him a chance to see if he is able to get through this acute period. He had a similar episode of severe illness approximately 10 years ago after being hospitalized with a ruptured appendix. Family has witnessed him being able to recover from that. Patient now showing some signs of recovery. Family has become more optimistic. There will be a challenging road ahead of him but goals at this point remain aggressive. . Code Status: Full Code Plan == Code Status : FULL CODE == Decision Making: The patient is currently incapacitated to make his own health care decisions. He is improving, however, and there is certainly a chance he will be able to make his own health care decision in the future. as said she will bring in the patient's completed advanced directive but she has not done that to date. informs me that she is listed as the designated health care surrogate. If there is no advanced directive, would still be asked to serve as proxy decision-maker under the hierarchy of proxy's in the [place] statutes. == Goals of medical treatment: The patient's spouse wants ongoing and full aggressive care for the time being. They have seen him improve, become interactive, and therefore want everything done -- including tracheostomy if deemed necessary. Family members desire all resuscitation attempts be tried at this point in time. On the other hand, family reports that the patient would not want to be maintained on life support if there is no hope for meaningful recovery. is even uncertain if patient would ever agree to ongoing long-term hemodialysis. If the patient declines in spite of aggressive care will probably want to reconsider goals. == Pain: As noted above, patient has a number of different pain syndromes. Patient is able to indicate that he is not having pain at time of my visit. PRN [place] and Morphine are available, but have not been utilized since . Patient showing no signs or symptoms of nonverbal pain on exam. == Encephalopathy: Encephalopathy is most likely multifactorial and in large part due to the septic shock. Based on the history, it is unlikely that the duration of hypoglycemia or hypotension would've caused any type of permanent damage. There is no prior history of underlying dementia. There has been slow improvement in cognitive function over the last days. == Dyspnea: Dyspnea currently being controlled with the ventilator. Now tolerating intermittent CPAP trials . Secretions seem to be the issue that prevents another extubation trial. Now planning to go forward with tracheostomy. == has said on several occasions that she would bring in a copy of the patient's advanced directive for us to scan into the electronic medical record. Has not arrived yet. Have asked nursing staff to request this as well. I believe the is resistant to this idea. Will not push further. == Palliative care will continue to follow to assist with symptom management and to further clarify goals of medical treatment as the clinical course evolves. . Attestation To help prompt me to consider important information that might be impacting today's encounter and assessment, information from prior notes written by myself or my colleagues may have been "brought forward" into today's note. My signature on this note, however, is an attestation that I personally performed the exam, history, and/or decision-making noted today, and, unless otherwise indicated, the interactions with patient, family, and staff as well as the review of records all occurred today. I also attest that the listed assessment and stated plan reflect my best clinical judgment today based on the combination of historical information, prior notes, and today's exam/ interactions. When time spent is documented, it refers only to time spent today by the signer, or if indicated, combined time spent today by collaborating physician/nurse practitioner. Jameson Conklin MD August 07, 2016 18:26
--- NOTE | 2016-08-07 18:33 | RADRPT ---
EXAM DATE/TIME: 08/07/2016 18:14 [facility] COMPARISON: CHEST SINGLE AP, August 05, 2016, 12:38. INDICATIONS : Post tracheostomy. MEDICAL HISTORY : None. SURGICAL HISTORY : None. ENCOUNTER: Initial ACUITY: 1 day PAIN SCORE: Non-responsive. LOCATION: Bilateral chest FINDINGS: Patient has been converted to tracheostomy. There is worsening bibasilar consolidation and effusions. I don't see a pneumothorax. Mild cardiomegaly similar to before. Right IJ central venous catheter again seen, tip in the superior vena cava. There is a nasogastric tu be coursing into the stomach. CONCLUSION: 1. New tracheostomy, appears normally positioned. 2. Unchanged right IJ central venous catheter and nasogastric tube 3. Worsening consolidation and effusions of both bases. Berlin Reynoso MD on August 07, 2016 at 18:30 Board Certified Radiologist. This report was verified electronically.
[2016-08-07] MEDS ORDERED: MIDAZOLAM HCL 5 MG/5 ML VIAL IV PUSH ONE (18:45)
--- NOTE | 2016-08-07 19:38 | PD.PROCEDR ---
Procedure Note Procedure Percutaneous Dilation Tracheostomy Tube Placement Diagnosis: Chronic respiratory failure Indications: Chronic respiratory failure requiring long-term mechanical ventilation Anesthesia: Versed IV, fentanyl IV Neuromuscular Blockade: Cisatracurium IV Anesthesia was provided by the bedside RN Description of the Procedure: The patient was sedated and paralyzed. The patient was positioned in the supine position with a chest roll. The patient's neck was slightly extended. Landmarks were palpated and the anatomy of the anterior neck was deemed normal. A time out procedure was performed. The patient was placed on a volume control mode of ventilation, on 100% FiO2. The patient was prepped and draped sterilely. A bronchoscope was inserted into the endotracheal tube for endoscopic guidance (see separate bronchoscopy procedure note). After negative aspiration, 1% lidocaine with 1:100k epinephrine was injected subcutaneously in the midline neck using a 21g needle for local anesthesia. An approximately 2cm skin incision was made using a #15 blade. The cricoid cartilage, thyroid tissue , and tracheal rings were palpated in the midline. Under direct bronchoscopic guidance, the cuff of the endotracheal tube was deflated and the endotracheal tube was retracted to a level above the level of the skin incision. At this point, a 15g introducer needle/catheter was advanced midline under negative aspiration with saline filled syringe until bubbles were seen and the needle and catheter were visualized in the lumen of the trachea. The needle was withdrawn leaving the catheter in place. A 0.052 in diameter J-shaped guidewire was advanced through the catheter into the lumen of the trachea, under direct bronchoscopic visualization. Using a modified Seldinger technique , a 14 Fr, 4.5 cm introducer dilator was used, followed by a Blue Rhino Percutaneous Tracheostomy Dilator, and finally a 28 Fr tracheostomy loading catheter with 8.0 Cuffed Shiley tracheostomy tube. The loading catheter and guidewire were removed and the tracheostomy tube was confirmed in the lumen of the trachea with bronchoscopy, end-tidal CO2, and returning volumes on the ventilator. The tracheostomy was sewn to the skin with interrupted 2.0 Prolene sutures, and a tracheostomy tie was applied to the skin. There were no immediate complications. There was minimal EBL. A chest x-ray has been ordered. Senior Project Leader/Team Lead: Dr. Giovanny Upton I personally performed the procedure. Vitor Barrera MD August 07, 2016 19:38
[2016-08-08] VITALS (20 sets, daily range): BP systolic 140–179; BP diastolic 65–78; PULSE 67–88; RESP 18–24; TEMP 98.4–100.4; O2SAT 95–100
[2016-08-08] MEDS: RESP: ACETYLCYSTEINE 10% 30 ML NEB NEB SCH ×4 (00:06→23:26)
[2016-08-08] MEDS: METOCLOPRAMIDE HCL 10 MG/2 ML VIAL IV PUSH SCH ×3 (01:00→16:28)
[2016-08-08] MEDS: CHLORHEXIDINE GLUCONATE 2 % 1 PACK (2 CLOTHS) TOP SCH (04:00)
[2016-08-08] MEDS: LABETALOL HCL 100 MG/20 ML VIAL IV PRN ×3 (04:23→23:04)
[2016-08-08 05:05] LABS: APTT (PATIENT) 41.1 SEC (24.3-30.1)
[2016-08-08 05:09] LABS: HEMATOCRIT 22.6 % (39.0-51.0); MEAN CELL VOLUME 89.8 FL (80.0-100.0); MEAN CORPUSCULAR HEMOGLOBIN 30.3 PG (27.0-34.0); MEAN CORPUSCULAR HGB CONC 33.7 % (32.0-36.0); PLATELET COUNT 217 TH/MM3 (150-450); RED BLOOD COUNT 2.52 MIL/MM3 (4.50-5.90); REVIEW FLAG FINAL; WHITE BLOOD COUNT 5.7 TH/MM3 (4.0-11.0)
[2016-08-08 05:29] LABS: BICARBONATE 29.6 MEQ/L (21.0-32.0); POTASSIUM 3.5 MEQ/L (3.5-5.1)
[2016-08-08] MEDS: INSULIN ASPART SUPPLEMENTAL SCALE SQ SCH ×5 (07:00→21:30)
[2016-08-08] MEDS: CHLORHEXIDINE 0.12% (ORAL KIT) 15 ML CUP MT SCH ×2 (08:00→21:33)
[2016-08-08] MEDS: PROPOFOL 1000 MG/100 ML IV SCH (08:18)
[2016-08-08] MEDS: HEPARIN-D5W INJ 250 ML IV SCH ×2 (08:19→21:44)
[2016-08-08] MEDS: PANTOPRAZOLE SODIUM 40 MG VIAL IV SCH (08:19)
[2016-08-08] MEDS: SODIUM CHLORIDE 0.9% FLUSH 10 ML FLUSH IV FLUSH SCH ×2 (08:20→21:30)
[2016-08-08] MEDS: ASPIRIN 81 MG CHEW TAB CHEW SCH (08:20)
[2016-08-08] MEDS: CARVEDILOL 12.5 MG TAB PO SCH ×2 (08:20→21:29)
[2016-08-08] MEDS: SENNOSIDES SYRUP 8.8 MG/5 ML CUP OG-TUBE SCH (08:21)
[2016-08-08] MEDS: SODIUM CHLORIDE 0.9% FLUSH 10 ML FLUSH IVF SCH (08:21)
[2016-08-08] MEDS: DOCUSATE SODIUM 100 MG CAP PO SCH ×2 (08:22→21:00)
[2016-08-08] MEDS: LACTOBACILLUS ACIDOPHILUS TAB PO SCH ×3 (08:22→18:00)
[2016-08-08] MEDS: INSULIN DETEMIR 100 UNITS/ML VIAL SQ SCH ×2 (08:28→21:36)
[2016-08-08] MEDS: RESP: ALBUTEROL 2.5 MG/3 ML NEB (PRN) INH ×4 (08:29→23:26)
[2016-08-08] MEDS: RESP: TOBRAMYCIN SULFATE 80 MG/2 ML NEB NEB SCH ×2 (08:45→19:52)
--- NOTE | 2016-08-08 11:17 | HHI.HCPN ---
Reason for visit a. To assist with evaluation and management of symptoms including: dyspnea; pain; encephalopathy b. To assist medical decision maker(s) with: better understanding of current medical conditions; weighing benefits/burdens of medical treatment options; making medical treatment decisions. . Subjective/Interval History INTERVAL NOTE Patient underwent tracheostomy without complication yesterday evening. He is awake but mildly sedated with propofol at time of my visit this AM. He is able to shake his head "no" to pain. He is able to slowly/weakly follow some simple commands . Unable to wiggle his toe on the right, however. Tolerated CPAP overnight. reports that he seemed angry with her and was not responding to her questions prior to my visit. Received a bolus of fentanyl prior to tracheostomy, otherwise, there has been no opiate use since 08/01/16. Tmax 101.4. Other VS stable. Urine output up to 1600 cc Dialysis performed on 08/07/16 Post tracheostomy CXR showed some worsening consolidation and effusion of both bases. . . Family/friend interactions is at bedside. She is concerned that patient is angry at her and less responsive with her. is hoping to begin PT to prevent loss of ROM. She is also hoping for PEG soon so he can have the nasogastric tube removed. . Advance Directives Living Will: Completed, but not made available Health Care Surrogate: Completed, but not made available Durable Power of Spray Unit Feeder: Never completed Advance Directive Specifics Date completed: has been asked to bring in the advance directives several times. She indicates she will, but then does not follow through. She may not want to do this. . Health Care Surrogate(s): has been asked to bring in the advance directives several times. She indicates she will, but then does not follow through. She may not want to do this. .She reports that she is listed as the designated health care surrogate. . Documented care wishes: has been asked to bring in the advance directives several times. She indicates she will, but then does not follow through. She may not want to do this. . At this point we do not have any written documentation of the patient's health care goals/preferences. . Objective Vital Signs Date Time Temp Pulse Resp B/P Pulse Ox O2 Delivery O2 Flow Rate FiO2 08/08/16 08:00 86 08/08/16 06:00 82 08/08/16 04:30 165/74 08/08/16 04:00 40 08/08/16 04:00 98.6 67 24 179/78 96 08/08/16 04:00 67 08/08/16 02:00 74 08/08/16 00:07 100 40 08/08/16 00:00 71 08/08/16 00:00 98.4 71 18 142/67 100 08/08/16 00:00 40 08/07/16 22:00 96 08/07/16 20:00 100 50 08/07/16 20:00 98.8 89 26 160/72 100 08/07/16 20:00 60 08/07/16 20:00 89 08/07/16 18:45 92 60 08/07/16 18:44 100 100 08/07/16 18:15 100 40 08/07/16 18:00 84 08/07/16 16:00 99.3 83 21 156/69 95 08/07/16 16:00 82 08/07/16 16:00 40 08/07/16 14:00 74 08/07/16 13:31 94 40 08/07/16 12:00 74 08/07/16 12:00 98.4 67 21 150/67 94 08/07/16 12:00 40 Intake & Output 08/08/16 08/08/16 07:00 19:00 Intake Total 784 ml Output Total 1250 ml Balance -466 ml Intake IV Total 418 ml Tube Feeding 206 ml Tube Irrigant 160 ml Output Urine Total 1250 ml # Bowel Movements 0 . Physical Exam CONSTITUTIONAL/GENERAL: This is an overweight male intubated , in the SICU. Eyes are open; shakes his head "no" when asked about pain. Can follow complicated commands slowly and weakly. No evidence of distress. TUBES/LINES/DRAINS: Tracheostomy tube; nasogastric tube; vas-cath right internal jugular; SCDs; Connelly catheter; rectal tube SKIN: No jaundice, rashes, or lesions. No wounds seen anteriorly. Skin temperature normal. EYES: Pupils equal and round. No scleral icterus. No injection or drainage. Fundi not examined. ENT: Appears to hear me fine. Nose without bleeding or purulent drainage. NECK: Trachea midline. CARDIOVASCULAR: Regular rhythm without murmurs, gallops, or rubs. No JVD. RESPIRATORY/CHEST: Trachesotomy dressing clean and dry. Air movement symmetric. No audible ronchi/wheezes at time of my visit. GASTROINTESTINAL: Abdomen soft, non-tender, slightly distended. Rectal tube in place with dark stool in bag. GENITOURINARY: Without palpable bladder distension. Connelly catheter in place. MUSCULOSKELETAL: Extremities without clubbing, cyanosis. 1+ hand edema. No mottling. NEUROLOGICAL: Eyes open. Shakes/nods head appropriately to questions. Follows some complex commands but does so weakly and slowly. Moves all extremities. PSYCHIATRIC: Difficult to assess for anxiety/depression. No obvious psychotic process. . Diagnostic Tests Laboratory Laboratory Tests Test 08/05/16 08/06/16 08/07/16 08/08/16 12:25 05:25 03:12 04:16 White Blood Count 7.3 TH/MM3 5.5 TH/MM3 5.5 TH/MM3 5.7 TH/MM3 (4.0-11.0) (4.0-11.0) (4.0-11.0) (4.0-11.0) Red Blood Count 2.63 MIL/MM3 2.37 MIL/MM3 2.47 MIL/MM3 2.52 MIL/MM3 (4.50-5.90) (4.50-5.90) (4.50-5.90) (4.50-5.90) Hemoglobin 7.7 GM/DL 7.1 GM/DL 7.4 GM/DL 7.6 GM/DL (13.0-17.0) (13.0-17.0) (13.0-17.0) (13.0-17.0) Hematocrit 23.4 % 21.2 % 22.3 % 22.6 % (39.0-51.0) (39.0-51.0) (39.0-51.0) (39.0-51.0) Mean Corpuscular Volume 89.2 FL 89.7 FL 90.3 FL 89.8 FL (80.0-100.0) (80.0-100.0) (80.0-100.0) (80.0-100.0) Mean Corpuscular Hemoglobin 29.4 PG 29.9 PG 29.8 PG 30.3 PG (27.0-34.0) (27.0-34.0) (27.0-34.0) (27.0-34.0) Mean Corpuscular Hemoglobin 32.9 % 33.3 % 33.0 % 33.7 % Concent (32.0-36.0) (32.0-36.0) (32.0-36.0) (32.0-36.0) Red Cell Distribution Width 14.8 % 14.3 % 14.3 % 14.0 % (11.6-17.2) (11.6-17.2) (11.6-17.2) (11.6-17.2) Platelet Count 252 TH/MM3 203 TH/MM3 212 TH/MM3 217 TH/MM3 (150-450) (150-450) (150-450) (150-450) Mean Platelet Volume 9.1 FL 8.7 FL 9.1 FL 8.8 FL (7.0-11.0) (7.0-11.0) (7.0-11.0) (7.0-11.0) Neutrophils (%) (Auto) 77.4 % 68.4 % 73.1 % (16.0-70.0) (16.0-70.0) (16.0-70.0) Lymphocytes (%) (Auto) 11.3 % 17.5 % 14.0 % (9.0-44.0) (9.0-44.0) (9.0-44.0) Monocytes (%) (Auto) 5.7 % (0.0-8.0) 6.8 % (0.0-8.0) 5.5 % (0.0-8.0) Eosinophils (%) (Auto) 4.5 % (0.0-4.0) 5.6 % (0.0-4.0) 6.0 % (0.0-4.0) Basophils (%) (Auto) 1.1 % (0.0-2.0) 1.7 % (0.0-2.0) 1.4 % (0.0-2.0) Neutrophils # (Auto) 5.7 TH/MM3 3.8 TH/MM3 4.0 TH/MM3 (1.8-7.7) (1.8-7.7) (1.8-7.7) Lymphocytes # (Auto) 0.8 TH/MM3 1.0 TH/MM3 0.8 TH/MM3 (1.0-4.8) (1.0-4.8) (1.0-4.8) Monocytes # (Auto) 0.4 TH/MM3 0.4 TH/MM3 0.3 TH/MM3 (0-0.9) (0-0.9) (0-0.9) Eosinophils # (Auto) 0.3 TH/MM3 0.3 TH/MM3 0.3 TH/MM3 (0-0.4) (0-0.4) (0-0.4) Basophils # (Auto) 0.1 TH/MM3 0.1 TH/MM3 0.1 TH/MM3 (0-0.2) (0-0.2) (0-0.2) CBC Comment AUTO DIFF AUTO DIFF AUTO DIFF Differential Total Cells 100 Counted Neutrophils % (Manual) 74 % (16-70) Band Neutrophils % 5 % (0-6) Lymphocytes % 13 % (9-44) Monocytes % 1 % (0-8) Eosinophils % 5 % (0-4) Basophils % 1 % (0-2) Neutrophils # (Manual) 5.8 TH/MM3 (1.8-7.7) Differential Comment FINAL DIFF AUTO DIFF AUTO DIFF MANUAL CONFIRMED CONFIRMED Plasma Cells 1 % (0-0) Platelet Estimate NORMAL NORMAL (NORMAL) (NORMAL) Platelet Morphology Comment NORMAL NORMAL (NORMAL) (NORMAL) Rouleau PRESENT (NORMAL) Sodium Level 140 MEQ/L 139 MEQ/L 140 MEQ/L 140 MEQ/L (136-145) (136-145) (136-145) (136-145) Potassium Level 3.4 MEQ/L 3.5 MEQ/L 3.5 MEQ/L 3.5 MEQ/L (3.5-5.1) (3.5-5.1) (3.5-5.1) (3.5-5.1) Chloride Level 101 MEQ/L 100 MEQ/L 101 MEQ/L 101 MEQ/L (98-107) (98-107) (98-107) (98-107) Carbon Dioxide Level 27.2 MEQ/L 28.8 MEQ/L 26.2 MEQ/L 29.6 MEQ/L (21.0-32.0) (21.0-32.0) (21.0-32.0) (21.0-32.0) Anion Gap 12 MEQ/L (5-15) 10 MEQ/L (5-15) 13 MEQ/L (5-15) 9 MEQ/L (5-15) Blood Urea Nitrogen 45 MG/DL (7-18) 57 MG/DL (7-18) 66 MG/DL (7-18) 44 MG/DL (7- 18) Creatinine 3.57 MG/DL 4.76 MG/DL 5.29 MG/DL 4.05 MG/DL (0.60-1.30) (0.60-1.30) (0.60-1.30) (0.60-1.30) Estimat Glomerular Filtration 17 ML/MIN (>89) 12 ML/MIN (>89) 11 ML/MIN (>89) 15 ML/MIN (>89) Rate Random Glucose 160 MG/DL 164 MG/DL 120 MG/DL 125 MG/DL (74-106) (74-106) (74-106) (74-106) Calcium Level 7.6 MG/DL 7.2 MG/DL 7.5 MG/DL 7.7 MG/DL (8.5-10.1) (8.5-10.1) (8.5-10.1) (8.5-10.1) Total Bilirubin 0.4 MG/DL 0.4 MG/DL 0.3 MG/DL (0.2-1.0) (0.2-1.0) (0.2-1.0) Aspartate Amino Transf 25 U/L (15-37) 21 U/L (15-37) 19 U/L (15-37) (AST/SGOT) Alanine Aminotransferase 29 U/L (12-78) 28 U/L (12-78) 28 U/L (12-78) (ALT/SGPT) Alkaline Phosphatase 80 U/L (45-117) 75 U/L (45-117) 74 U/L (45-117) Total Protein 8.4 GM/DL 7.9 GM/DL 8.4 GM/DL (6.4-8.2) (6.4-8.2) (6.4-8.2) Albumin 1.4 GM/DL 1.4 GM/DL 1.4 GM/DL (3.4-5.0) (3.4-5.0) (3.4-5.0) Red Cell Morphology Comment NORMAL (NORMAL) Activated Partial 44.5 SEC 46.4 SEC 41.1 SEC Thromboplast Time (24.3-30.1) (24.3-30.1) (24.3-30.1) Protein Corrected Calcium 6.9 MG/DL (8.5-10.1) . Result Diagram: 08/08/16 0416 08/08/16 0416 Imaging Last Impressions Chest X-Ray 08/07/16 Signed Impressions: Service Date/Time: July 18:14 - CONCLUSION: 1. New tracheostomy, appears normally positioned. 2. Unchanged right IJ central venous catheter and nasogastric tube 3. Worsening consolidation and effusions of both bases. [place] Reynoso MD Abdomen/Pelvis CT 07/30/16 Signed Impressions: Service Date/Time: Saturday, July 30, 2016 07:57 - CONCLUSION: 1. No retroperitoneal hematoma. 2. Bibasilar pulmonary consolidations with small effusions. 3. Chronic pancreatitis. No acute inflammation observed. 4. 2 ventral hernias. 5. IVC filter. 6. 3.6 x 3.1 cm AAA. Omer Cheng Jr., MD Abdomen X-Ray 07/24/16 0749 Signed Impressions: Service Date/Time: July 08:28 - CONCLUSION: Air-filled bowel loops centrally but no obstruction seen. lUi Atkins MD Renal Ultrasound 07/20/16 Signed Impressions: Service Date/Time: Wednesday, July 20, 2016 14:32 - CONCLUSION: 1. No acute findings. Renal ultrasound unremarkable. Bladder was not well-visualized. Jose Martin Valderrama MD Lower Extremity Ultrasound 07/20/16 Signed Impressions: Service Date/Time: Wednesday, July 20, 2016 14:39 - CONCLUSION: Negative exam with no evidence of deep venous thrombosis. Alonzo Bradshaw MD Head CT 07/20/16 Signed Impressions: Service Date/Time: Wednesday, July 20, 2016 18:21 - CONCLUSION: 1. No acute intracranial abnormalities. Mild mucosal thickening of the ethmoid air cells. Jose Martin Valderrama MD Chest CT 07/20/16 0000 Signed Impressions: Service Date/Time: Wednesday, July 20, 2016 11:28 - CONCLUSION: 1. Chronic scarring in the lung bases left greater than right. 2. No focal consolidation. 3. Bilateral adrenal masses left greater than right most consistent with adenomas. 4. Nonspecific bowel gas pattern noted in the upper abdomen with air-fluid levels in the small bowel. Alonzo Bradshaw MD . Procedures * Intubation/mechanical ventilation 07/20/16 * Left internal jugular central line placement 07/20/16 * Right jugular vas-cath placement * CRRT * Extubated and re-intubated 08/02/16 * Tracheostomy 08/07/16 . Assessment and Plan Disease Oriented Problem List: (1) Severe sepsis with acute organ dysfunction Comment: Blood cx growing out Group A strep . (2) Respiratory failure Comment: s/p tracheostomy 08/07/16. (3) Ventilator associated pneumonia Comment: Sputum cx of 07/30/16 growing Pseudomonas. (4) Lactic acidosis Comment: Improved -- but metabolic acidosis persists with elevated anion gap. . (5) Hypoxia (6) Metabolic acidosis Comment: This has remained profound and persistent in spite of normalization of lactic acid for several days. Now improved. . . (7) Acute kidney injury Comment: Requiring dialysis. Renal function appears to no be improving -- urine output increasing. . . (8) Elevated troponin Comment: Resolved (9) Hypoalbuminemia (10) Thrombocytopenia Comment: Resolved. (11) Chronic anticoagulation (12) Hypertension (13) Peripheral vascular disease (14) Dyslipidemia (15) History of DVT (deep vein thrombosis) Symptom Scale: (1) Pain 0-10 Scale: 0 Comment: Patient has chronic pain mostly in the lower extremities from a combination of peripheral vascular disease and diabetic neuropathy. He had been prescribed opiates in the past but normally takes no analgesics because he doesn't like the side effects. Additional sources of discomfort at this time would include prolonged bedbound status; orotracheal/orogastric intubations; Connelly catheter; vascular access lines. Patient denies pain today. . . (2) Dyspnea 0-10 Scale: Unable to quantify (dyspnea seems managed with mechanical ventilation.) Comment: Controlled on ventilator. Now tolerating CPAP trials. . . (3) Encephalopathy 0-10 Scale: Unable to quantify Comment: Encephalopathy is most likely multifactorial and in large part due to the septic shock. There is no prior history of underlying dementia. Patient now improving slowly. Able to follow some complex commands but weakly and slowly. . Pertinent Non-Medical Issues Psychosocial: Patient is well supported by his spouse and daughter who live locally, many friends who live locally, and 2 daughters who had flown in from [place] and [place]. Spiritual: Patient was raised in a Zoroastrianism home. 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 Temple and spirituality have not played a large part in his life of late. Legal: reports the patient has completed an advanced directive. She has been asked several times to bring a copy in to have it scanned into the EMR. She has not followed through. Ethical issues impacting care: Patient is currently incapacitated to make his own health care decisions. He seems to be becoming more awake and alert. We are hopeful he will ultimately become capacitated to make his won health care decisions. . Important Contacts == Spouse (Alysia Lemus) [phone] == Daughter (Adenike) [phone] . Prognosis Though Mr Lemus has been quite critically ill with septic shock and multiple organs being affected, it is also important to note that in spite of his underlying chronic illnesses , his functional status was reasonably good prior to becoming acutely ill so suddenly. Family, understandably, want to give him a chance to see if he is able to get through this acute period. He had a similar episode of severe illness approximately 10 years ago after being hospitalized with a ruptured appendix. Family has witnessed him being able to recover from that. Patient now showing some signs of recovery. Family has become more optimistic. There will be a challenging road ahead of him but goals at this point remain aggressive. . Code Status: Full Code Plan == Code Status : FULL CODE == Decision Making: The patient is currently incapacitated to make his own health care decisions. He is improving, however, and there is certainly a chance he will be able to make his own health care decision in the future. as said she will bring in the patient's completed advanced directive but she has not done that to date. informs me that she is listed as the designated health care surrogate. If there is no advanced directive, would still be asked to serve as proxy decision-maker under the hierarchy of proxy's in the [place] statutes. == Goals of medical treatment: The patient's spouse wants ongoing and full aggressive care for the time being. They have seen him improve, become interactive, and therefore have wanted everything done -- hemodialysis, vent support; tracheostomy; transfusions; etc . Family members desire all resuscitation attempts be tried at this point in time. On the other hand, family reports that the patient would not want to be maintained on life support if there is no hope for meaningful recovery. is even uncertain if patient would ever agree to ongoing long-term hemodialysis. If the patient declines in spite of aggressive care will probably want to reconsider goals. == Pain: As noted above, patient has a number of different pain syndromes. Patient is able to indicate that he is not having pain at time of my visit. PRN [place] and Morphine are available, but have not been utilized since . Patient showing no signs or symptoms of nonverbal pain on exam. == Encephalopathy: Encephalopathy is most likely multifactorial and in large part due to the septic shock. Based on the history, it is unlikely that the duration of hypoglycemia or hypotension would've caused any type of permanent damage. There is no prior history of underlying dementia. There has been slow improvement in cognitive function over the last days. Follows some complex commands, but does so slowly and weakly. Anticipate further slow improvement. No further recommendations at this time. == Dyspnea: Dyspnea currently being controlled with the ventilator. Now tolerating intermittent CPAP trials . Secretions seem to be the issue that prevents wean from vent. Tracheostomy completed 08/07/16. No further recommendations at this time. == has said on several occasions that she would bring in a copy of the patient's advanced directive for us to scan into the electronic medical record. Has not arrived yet. Have asked nursing staff to request this as well. I believe the is resistant to this idea. Will not push further. == Palliative care will continue to follow to assist with symptom management and to further clarify goals of medical treatment as the clinical course evolves. . Attestation To help prompt me to consider important information that might be impacting today's encounter and assessment, information from prior notes written by myself or my colleagues may have been "brought forward" into today's note. My signature on this note, however, is an attestation that I personally performed the exam, history, and/or decision-making noted today, and, unless otherwise indicated, the interactions with patient, family, and staff as well as the review of records all occurred today. I also attest that the listed assessment and stated plan reflect my best clinical judgment today based on the combination of historical information, prior notes, and today's exam/ interactions. When time spent is documented, it refers only to time spent today by the signer, or if indicated, combined time spent today by collaborating physician/nurse practitioner. . Jameson Conklin MD August 08, 2016 11:17
--- NOTE | 2016-08-08 11:31 | PD.CONS ---
HPI History of Present Illness This is a 71 year old who was admitted on 07/20/2016 with pmh of diabetes with neuropathy and nephropathy, hypertension, dyslipidemia, chronic pain syndrome, history of DVT/PE on chronic anticoagulation, peripheral vascular disease with history of AAA, and osteoporosis who is here for evaluation of acute diarrhea, chills and hypoglycemia and found to be septic with strep bacteremia, pneumonia and developed acute hypoxemic respiratory failure. He was intubated and failed C -pap trials, he is s/p trach. GI consulted for PEG tube placement. He is tolerating TF okay. (Magui Molina) PFSH Past Medical History * Hypertension * Diabetes mellitus * Diabetic neuropathy * History of acute kidney injury * History of Deep venous thrombosis on Coumadin * History of pulmonary embolus * Severe lower extremity peripheral vascular disease with claudication * Abdominal aortic aneurysm * History of congestive heart failure * Osteoarthritis . Past Surgical History * Laparotomy for ruptured appendix approximately 2006 * Surgery for bowel obstruction following ruptured appendix * Inferior vena cava filter placement * Mesh screen placement in the abdomen * Colonoscopy in 2014 or 2015 (reported to be normal) * Attempted angioplasty of lower extremity vascular occlusions. . (Magui Molina) Coded Allergies: No Known Allergies (Verified , 07/20/16) Medications Current Medications Medications (Trade) Dose Ordered Sig/Erica Route Start Time Stop Time Status Last Admin (NS Flush) 2 ml UNSCH PRN IV FLUSH 07/20/16 11:15 (NS Flush) 2 ml BID IV FLUSH 07/20/16 21:00 08/08/16 08:20 (Tylenol) 650 mg Q6H PRN PO 07/20/16 11:15 07/30/16 05:08 ([place] 5-325 Mg) 1 tab Q4H PRN PO 07/20/16 11:15 08/01/16 23:46 (Morphine Inj) 2 mg Q2H PRN IV 07/20/16 11:15 (Protonix Inj) 40 mg DAILY IV 07/21/16 09:00 08/08/16 08:19 (Zofran Inj) 4 mg Q6H PRN IV 07/20/16 11:15 (Colace) 100 mg BID PO 07/20/16 21:00 08/07/16 20:29 (Senokot) 17.2 mg Q12H PRN PO 07/20/16 11:15 Miscellaneous Information 1 Q361D XX 07/20/16 11:15 (Chlorhexidine 2% Cloth) Taper DAILY@04 TOP 07/21/16 04:00 07/17/17 03:59 08/08/16 04:00 (Chlorhexidine 2% Cloth) 3 pack UNSCH PRN TOP 07/20/16 11:15 (Brethine Inj) 1 mg UNSCH PRN SQ 07/20/16 13:15 (NS Flush) DAILY IVF 07/21/16 09:00 08/08/16 08:21 (NS Flush) UNSCH PRN IVF 07/20/16 14:30 (Peridex 0.12% Liq) 15 ml BID@08,20 MT 07/20/16 20:00 08/08/16 08:00 Aspirin 81 mg 81 mg DAILY CHEW 07/21/16 09:00 08/08/16 08:20 Vasopressin 40 units/Dextrose 100 ml @ 0 mls/hr TITRATE IV 07/20/16 20:30 07/27/16 21:13 (Protamine Sulfate Inj/NS 250 ml Inj) 250 ml @ 0 mls/hr TITRATE IV 07/22/16 11:00 07/22/16 14:47 (Senna Liq) 8.8 mg DAILY OG-TUBE 07/24/16 11:00 08/06/16 08:39 (Reglan Inj) 5 mg Q8H IV PUSH 07/26/16 09:00 08/08/16 08:20 (NovoLOG SUPPLEMENTAL SCALE) 1 Q6HR SQ 07/29/16 08:45 08/06/16 18:51 (D50w (Vial) Inj) 25 ml UNSCH PRN IV 07/29/16 08:45 Glucagon 1 mg 1 mg UNSCH PRN IM/SQ 07/29/16 08:45 (NS 1000 ml Inj) 1,000 ml @ 0 mls/hr TITRATE PRN IV 07/29/16 14:00 08/07/16 08:26 Heparin Sodium (Porcine) 8000 units 8,000 units UNSCH PRN IV FLUSH 07/29/16 14:00 Sodium Chloride 1,000 ml @ 200 mls/hr Q5H PRN IV 07/29/16 14:00 (NS 250 ml Inj) 200 ml @ 0 mls/hr UNSCH PRN IV 07/29/16 14:00 (Mannitol Inj) 12.5 gm UNSCH PRN IV 07/29/16 14:00 (Albumin 25% Inj) 25 gm UNSCH PRN IV 07/29/16 14:00 07/29/16 10:38 (NS Flush) 5 ml UNSCH PRN IV FLUSH 07/29/16 14:00 (Heparin Inj) Dwell Heparin to f... UNSCH PRN OTHER 07/29/16 14:00 08/07/16 08:26 (Gentamicin (Dialysis) Inj) 10 mg UNSCH PRN OTHER 07/29/16 14:00 08/07/16 08:27 (Gelfoam 12 Mm/7 Mm Top) 1 foam UNSCH PRN TOPICAL 07/29/16 14:00 (Zofran Inj) 4 mg UNSCH PRN IV 07/29/16 14:00 (Benadryl) 25 mg UNSCH PRN PO 07/29/16 14:00 (Nitrostat Sl) 0.4 mg UNSCH PRN SL 07/29/16 14:00 (Catapres) 0.1 mg UNSCH PRN PO 07/29/16 14:00 Lactobacillus Acidophilus 1 tab 1 tab TID PO 07/30/16 18:00 08/06/16 18:46 (Maxipime Inj/NS Inj) 100 ml @ 200 mls/hr Q24H IV 07/31/16 14:00 08/07/16 13:44 (Levemir Inj) 10 units Q12HR SQ 07/31/16 21:00 08/08/16 08:28 Miscellaneous 1 ea 1 ea UNSCH PRN OTHER 07/31/16 15:00 (Heparin-D5W Inj) 250 ml @ 0 mls/hr TITRATE IV 08/01/16 10:15 08/08/16 08:19 Labetalol HCl 20 mg 20 mg Q2HR PRN IV 08/01/16 11:00 08/08/16 04:23 (Diprivan 1000 Mg/100ml Inj) 100 ml @ 0 mls/hr TITRATE IV 08/02/16 15:00 08/08/16 08:18 (Coreg) 12.5 mg Q12HR PO 08/06/16 15:00 08/08/16 08:20 (Norvasc) 10 mg DAILY PO 08/06/16 17:00 08/08/16 08:20 (Trandate Inj) 20 mg Q15M PRN IV PUSH 08/06/16 16:15 (Apresoline Inj) 10 mg Q30M PRN IV PUSH 08/06/16 16:15 Family History * The patient's father of metastatic prostate cancer * The patient's mother after being hit by a car * 1 sister of unknown causes * 1 brother in a motor vehicle accident * The patient's daughter has diabetes mellitus. . Social History No alcohol No smoking No illicit drugs (Magui Molina) Review of Systems ROS Unable to obtain, patient is on the vent (Magui Molina) GI Exam Vitals I&O Vital Signs Date Time Temp Pulse Resp B/P Pulse Ox O2 Delivery O2 Flow Rate FiO2 08/08/16 10:00 76 08/08/16 08:00 40 08/08/16 08:00 100.4 73 23 158/69 98 08/08/16 08:00 86 08/08/16 06:00 82 08/08/16 04:30 165/74 08/08/16 04:00 40 08/08/16 04:00 98.6 67 24 179/78 96 08/08/16 04:00 67 08/08/16 02:00 74 08/08/16 00:07 100 40 08/08/16 00:00 71 08/08/16 00:00 98.4 71 18 142/67 100 08/08/16 00:00 40 08/07/16 22:00 96 08/07/16 20:00 100 50 08/07/16 20:00 98.8 89 26 160/72 100 08/07/16 20:00 60 08/07/16 20:00 89 08/07/16 18:45 92 60 08/07/16 18:44 100 100 08/07/16 18:15 100 40 08/07/16 18:00 84 08/07/16 16:00 99.3 83 21 156/69 95 08/07/16 16:00 82 08/07/16 16:00 40 08/07/16 14:00 74 08/07/16 13:31 94 40 08/07/16 12:00 74 08/07/16 12:00 98.4 67 21 150/67 94 08/07/16 12:00 40 I/O 08/07/16 08/07/16 08/07/16 08/08/16 08/08/16 08/08/16 07:00 15:00 23:00 07:00 15:00 23:00 Intake Total 685 ml 395 ml 328 ml 456 ml Output Total 400 ml 2750 ml 600 ml 650 ml Balance 285 ml -2355 ml -272 ml -194 ml Intake IV Total 387 ml 258 ml 217 ml 201 ml Tube Feeding 268 ml 77 ml 11 ml 195 ml Tube Irrigant 30 ml 60 ml 100 ml 60 ml Output Urine Total 400 ml 350 ml 600 ml 650 ml Stool Total 0 ml 100 ml Tube Feeding Residual Discard 0 ml Hemodialysis 2300 ml # Bowel Movements 0 0 Imaging Last Impressions Chest X-Ray 08/07/16 0000 Signed Impressions: Service Date/Time: July 18:14 - CONCLUSION: 1. New tracheostomy, appears normally positioned. 2. Unchanged right IJ central venous catheter and nasogastric tube 3. Worsening consolidation and effusions of both bases. [place] Reynoso MD Abdomen/Pelvis CT 07/30/16 0000 Signed Impressions: Service Date/Time: Saturday, July 30, 2016 07:57 - CONCLUSION: 1. No retroperitoneal hematoma. 2. Bibasilar pulmonary consolidations with small effusions. 3. Chronic pancreatitis. No acute inflammation observed. 4. 2 ventral hernias. 5. IVC filter. 6. 3.6 x 3.1 cm AAA. Omer Cheng Jr., MD Abdomen X-Ray 07/24/16 0749 Signed Impressions: Service Date/Time: July 08:28 - CONCLUSION: Air-filled bowel loops centrally but no obstruction seen. Uli Atkins MD Renal Ultrasound 07/20/16 0000 Signed Impressions: Service Date/Time: Wednesday, July 20, 2016 14:32 - CONCLUSION: 1. No acute findings. Renal ultrasound unremarkable. Bladder was not well-visualized. Jose Martin Valderrama MD Lower Extremity Ultrasound 07/20/16 0000 Signed Impressions: Service Date/Time: Wednesday, July 20, 2016 14:39 - CONCLUSION: Negative exam with no evidence of deep venous thrombosis. Alonzo Bradshaw MD Head CT 07/20/16 0000 Signed Impressions: Service Date/Time: Wednesday, July 20, 2016 18:21 - CONCLUSION: 1. No acute intracranial abnormalities. Mild mucosal thickening of the ethmoid air cells. Jose Martin Valderrama MD Chest CT 07/20/16 0000 Signed Impressions: Service Date/Time: Wednesday, July 20, 2016 11:28 - CONCLUSION: 1. Chronic scarring in the lung bases left greater than right. 2. No focal consolidation. 3. Bilateral adrenal masses left greater than right most consistent with adenomas. 4. Nonspecific bowel gas pattern noted in the upper abdomen with air-fluid levels in the small bowel. Alonzo Bradshaw MD Laboratory Test 08/08/16 04:16 White Blood Count 5.7 TH/MM3 Red Blood Count 2.52 MIL/MM3 Hemoglobin 7.6 GM/DL Hematocrit 22.6 % Mean Corpuscular Volume 89.8 FL Mean Corpuscular Hemoglobin 30.3 PG Mean Corpuscular Hemoglobin 33.7 % Concent Red Cell Distribution Width 14.0 % Platelet Count 217 TH/MM3 Mean Platelet Volume 8.8 FL Activated Partial 41.1 SEC Thromboplast Time Sodium Level 140 MEQ/L Potassium Level 3.5 MEQ/L Chloride Level 101 MEQ/L Carbon Dioxide Level 29.6 MEQ/L Anion Gap 9 MEQ/L Blood Urea Nitrogen 44 MG/DL Creatinine 4.05 MG/DL Estimat Glomerular Filtration 15 ML/MIN Rate Random Glucose 125 MG/DL Calcium Level 7.7 MG/DL Physical Examination HEENT: normocephalic; atraumatic; no jaundice. NECK: Neck is supple, no JVD, no lymphadenopathy. trach CHEST: Chest is clear to auscultation and percussion. CARDIAC: Regular rate and rhythm with no murmur gallop or rubs. ABDOMEN: Soft, nondistended, nontender; no hepatosplenomegaly; bowel sounds are present in all four quadrants. EXTREMITIES: No clubbing, cyanosis, or edema. SKIN: Normal; no rash; no jaundice. PHYSIOTHERAPY ASSISTANT: alert, on the vent through trach (Magui Molina) Assessment and Plan Plan - Dysphagia/ENF- need for long-term feeding This is a 71 year old who was admitted on 07/20/2016 with pmh of diabetes with neuropathy and nephropathy, hypertension, dyslipidemia, chronic pain syndrome, history of DVT/PE on chronic anticoagulation, peripheral vascular disease with history of AAA, and osteoporosis who is here for evaluation of acute diarrhea, chills and hypoglycemia and found to be septic with strep bacteremia, pneumonia and developed acute hypoxemic respiratory failure. He was intubated and failed C -pap trials, he is s/p trach. GI consulted for PEG tube placement. He is tolerating TF okay. Plan: - Patient is on TF and heparin drip today, will plan for EGD/PEG on Thursday - Obtain consents for EGD/PEG, by bed side, risk, benefits and alternatives discussed and she is agreeing - Supportive care - Patient seen and examined by and myself and this note is written on his behalf. (Magui Molina) Physician Comments Patient seen and examined Agree with above Continue with current supportive care Monitor labs PEG tube placement Thursday or Thursday (Demetris Chong MD) Magui Molina August 08, 2016 11:31 Demetris Chong MD August 08, 2016 19:28
[2016-08-08 11:33] LABS: APTT (PATIENT) 41.9 SEC (24.3-30.1)
[2016-08-08] MEDS: CEFEPIME INJ 1,000 MG in SODIUM CHLORIDE 0.9% INJ 100 ML IV SCH (13:12)
--- NOTE | 2016-08-08 14:32 | HHI.IDPN ---
Subjective Subjective Remarks 71-year-old male admitted to the hospital for acute onset of diarrhea, chills and hypoglycemia. Patient apparently working in the yard July 18 and July 19. He was doing okay except for complaints on his lower extremity which is apparently chronic and related to his peripheral vascular disease. That night, the noted that the patient was breathing hard. She asked the patient and he stated that he is not short of breath. He has not complained of any sore throat, has not been congested, and has eaten without any problem. He has not had any urinary complaints. That night apparently the couldn't sleep, and around 4 :00 in the morning the patient woke up and stated that he wanted to go to the bathroom. Patient didn't make it, and had stool incontinence. He was noted to have some chills, and his blood sugars were low. He also had episode of vomiting. Patient was taken to the hospital, and since admission he is developed profound hypotension, and acidosis. He ended up getting intubated, and currently on Levophed and vasopressin. His white count is elevated, lactic acid elevated, and his creatinine is also quite elevated. His urine output has been low. Cultures done in the emergency room, are now reported as growing group A strep. Notes reviewed S/P trach yesterday Occ low grade temps Has been on CPAP Being eval for PEG Last sputum with PSAE pansensitive Low grade temps this morning Had good UO WBC normal Antibiotics Cefepime Tobra nebs Lines [facility] Past Medical History Reviewed Allergies: Coded Allergies: No Known Allergies (Verified , 07/20/16) Objective . Vital Signs Date Time Temp Pulse Resp B/P Pulse Ox O2 Delivery O2 Flow Rate FiO2 08/08/16 14:00 67 08/08/16 12:00 99.1 77 22 140/65 97 08/08/16 12:00 40 08/08/16 12:00 75 08/08/16 10:00 76 08/08/16 08:00 40 08/08/16 08:00 100.4 73 23 158/69 98 08/08/16 08:00 86 08/08/16 06:00 82 08/08/16 04:30 165/74 08/08/16 04:00 40 08/08/16 04:00 98.6 67 24 179/78 96 08/08/16 04:00 67 08/08/16 02:00 74 08/08/16 00:07 100 40 08/08/16 00:00 71 08/08/16 00:00 98.4 71 18 142/67 100 08/08/16 00:00 40 08/07/16 22:00 96 08/07/16 20:00 100 50 08/07/16 20:00 98.8 89 26 160/72 100 08/07/16 20:00 60 08/07/16 20:00 89 08/07/16 18:45 92 60 08/07/16 18:44 100 100 08/07/16 18:15 100 40 08/07/16 18:00 84 08/07/16 16:00 99.3 83 21 156/69 95 08/07/16 16:00 82 08/07/16 16:00 40 08/07/16 08/07/16 08/08/16 15:00 23:00 07:00 Intake Total 395 ml 328 ml 456 ml Output Total 2750 ml 600 ml 650 ml Balance -2355 ml -272 ml -194 ml Intake IV Total 258 ml 217 ml 201 ml Tube Feeding 77 ml 11 ml 195 ml Tube Irrigant 60 ml 100 ml 60 ml Output Urine Total 350 ml 600 ml 650 ml Stool Total 100 ml Hemodialysis 2300 ml # Bowel Movements 0 0 . Laboratory Tests Test 08/07/16 08/08/16 03:12 04:16 White Blood Count 5.5 TH/MM3 5.7 TH/MM3 Red Blood Count 2.47 MIL/MM3 2.52 MIL/MM3 Hemoglobin 7.4 GM/DL 7.6 GM/DL Hematocrit 22.3 % 22.6 % Mean Corpuscular Volume 90.3 FL 89.8 FL Mean Corpuscular Hemoglobin 29.8 PG 30.3 PG Mean Corpuscular Hemoglobin 33.0 % 33.7 % Concent Red Cell Distribution Width 14.3 % 14.0 % Platelet Count 212 TH/MM3 217 TH/MM3 Mean Platelet Volume 9.1 FL 8.8 FL Neutrophils (%) (Auto) 73.1 % Lymphocytes (%) (Auto) 14.0 % Monocytes (%) (Auto) 5.5 % Eosinophils (%) (Auto) 6.0 % Basophils (%) (Auto) 1.4 % Neutrophils # (Auto) 4.0 TH/MM3 Lymphocytes # (Auto) 0.8 TH/MM3 Monocytes # (Auto) 0.3 TH/MM3 Eosinophils # (Auto) 0.3 TH/MM3 Basophils # (Auto) 0.1 TH/MM3 CBC Comment AUTO DIFF Differential Comment AUTO DIFF CONFIRMED Laboratory Tests Test 08/07/16 08/08/16 03:12 04:16 Sodium Level 140 MEQ/L 140 MEQ/L Potassium Level 3.5 MEQ/L 3.5 MEQ/L Chloride Level 101 MEQ/L 101 MEQ/L Carbon Dioxide Level 26.2 MEQ/L 29.6 MEQ/L Anion Gap 13 MEQ/L 9 MEQ/L Blood Urea Nitrogen 66 MG/DL 44 MG/DL Creatinine 5.29 MG/DL 4.05 MG/DL Estimat Glomerular Filtration 11 ML/MIN 15 ML/MIN Rate Random Glucose 120 MG/DL 125 MG/DL Calcium Level 7.5 MG/DL 7.7 MG/DL Total Bilirubin 0.3 MG/DL Aspartate Amino Transf 19 U/L (AST/SGOT) Alanine Aminotransferase 28 U/L (ALT/SGPT) Alkaline Phosphatase 74 U/L Total Protein 8.4 GM/DL Albumin 1.4 GM/DL Imaging Last 72 hours Impressions Chest X-Ray 08/07/16 0000 Signed Impressions: Service Date/Time: July 18:14 - CONCLUSION: 1. New tracheostomy, appears normally positioned. 2. Unchanged right IJ central venous catheter and nasogastric tube 3. Worsening consolidation and effusions of both bases. [place] Reynoso MD Chest X-Ray 08/05/16 0000 Signed Impressions: Service Date/Time: Friday, August 05, 2016 12:38 - CONCLUSION: Mild improvement of bilateral airspace disease. Small right pleural effusion. Uli Atkins MD Chest X-Ray 08/02/16 1421 Signed Impressions: Service Date/Time: Tuesday, August 02, 2016 14:42 - CONCLUSION: No significant interval change in bilateral pulmonary opacity. Castillo Roldan MD Chest X-Ray 08/02/16 0600 Signed Impressions: Service Date/Time: Tuesday, August 02, 2016 05:47 - CONCLUSION: 1. Support apparatus in satisfactory position. Bilateral mostly basilar airspace disease and effusions similar to July 30. Jose Martin Valderrama MD Chest X-Ray 08/02/16 1421 Signed Impressions: Service Date/Time: Tuesday, August 02, 2016 14:42 - CONCLUSION: No significant interval change in bilateral pulmonary opacity. Castillo Roldan MD Abdomen/Pelvis CT 07/30/16 0000 Signed Impressions: Service Date/Time: Saturday, July 30, 2016 07:57 - CONCLUSION: 1. No retroperitoneal hematoma. 2. Bibasilar pulmonary consolidations with small effusions. 3. Chronic pancreatitis. No acute inflammation observed. 4. 2 ventral hernias. 5. IVC filter. 6. 3.6 x 3.1 cm AAA. Omer Cheng Jr., MD Abdomen X-Ray 07/24/16 0749 Signed Impressions: Service Date/Time: July 08:28 - CONCLUSION: Air-filled bowel loops centrally but no obstruction seen. Uli Atkins MD Renal Ultrasound 07/20/16 0000 Signed Impressions: Service Date/Time: Wednesday, July 20, 2016 14:32 - CONCLUSION: 1. No acute findings. Renal ultrasound unremarkable. Bladder was not well-visualized. Jose Martin Valderrama MD Lower Extremity Ultrasound 07/20/16 0000 Signed Impressions: Service Date/Time: Wednesday, July 20, 2016 14:39 - CONCLUSION: Negative exam with no evidence of deep venous thrombosis. Alonzo Bradshaw MD Head CT 07/20/16 0000 Signed Impressions: Service Date/Time: Wednesday, July 20, 2016 18:21 - CONCLUSION: 1. No acute intracranial abnormalities. Mild mucosal thickening of the ethmoid air cells. Jose Martin Valderrama MD Chest CT 07/20/16 0000 Signed Impressions: Service Date/Time: Wednesday, July 20, 2016 11:28 - CONCLUSION: 1. Chronic scarring in the lung bases left greater than right. 2. No focal consolidation. 3. Bilateral adrenal masses left greater than right most consistent with adenomas. 4. Nonspecific bowel gas pattern noted in the upper abdomen with air-fluid levels in the small bowel. Alonzo Bradshaw MD Chest X-Ray 08/02/16 0600 Signed Impressions: Service Date/Time: Tuesday, August 02, 2016 05:47 - CONCLUSION: 1. Support apparatus in satisfactory position. Bilateral mostly basilar airspace disease and effusions similar to July 30. Jose Martin Valderrama MD Chest X-Ray 07/30/16 0600 Signed Impressions: Service Date/Time: Saturday, July 30, 2016 05:07 - CONCLUSION: 1. Interval increase in hazy opacity in the right lung. 2. Bilateral effusions are again noted with cardiomegaly and the findings are most characteristic of congestive heart failure. Alonzo Bradshaw MD Abdomen/Pelvis CT 07/30/16 0000 Signed Impressions: Service Date/Time: Saturday, July 30, 2016 07:57 - CONCLUSION: 1. No retroperitoneal hematoma. 2. Bibasilar pulmonary consolidations with small effusions. 3. Chronic pancreatitis. No acute inflammation observed. 4. 2 ventral hernias. 5. IVC filter. 6. 3.6 x 3.1 cm AAA. Omer Cheng Jr., MD Chest X-Ray 07/28/16 06 Signed Impressions: Service Date/Time: Thursday, July 28, 2016 03:09 - CONCLUSION: No significant change. Hazy opacity remains in both lungs most consistent with congestive heart failure. Alonzo Bradshaw MD Chest X-Ray 07/28/16 06 Signed Impressions: Service Date/Time: Thursday, July 28, 2016 03:09 - CONCLUSION: No significant change. Hazy opacity remains in both lungs most consistent with congestive heart failure. Alonzo Bradshaw MD Abdomen X-Ray 07/24/16 0749 Signed Impressions: Service Date/Time: July 08:28 - CONCLUSION: Air-filled bowel loops centrally but no obstruction seen. Uli Atkins MD Renal Ultrasound 07/20/16 Signed Impressions: Service Date/Time: Wednesday, July 20, 2016 14:32 - CONCLUSION: 1. No acute findings. Renal ultrasound unremarkable. Bladder was not well-visualized. Jose Martin Valderrama MD Lower Extremity Ultrasound 07/20/16 Signed Impressions: Service Date/Time: Wednesday, July 20, 2016 14:39 - CONCLUSION: Negative exam with no evidence of deep venous thrombosis. Alonzo Bradshaw MD Head CT 07/20/16 Signed Impressions: Service Date/Time: Wednesday, July 20, 2016 18:21 - CONCLUSION: 1. No acute intracranial abnormalities. Mild mucosal thickening of the ethmoid air cells. Jose Martin Valderrama MD Chest CT 07/20/16 0000 Signed Impressions: Service Date/Time: Wednesday, July 20, 2016 11:28 - CONCLUSION: 1. Chronic scarring in the lung bases left greater than right. 2. No focal consolidation. 3. Bilateral adrenal masses left greater than right most consistent with adenomas. 4. Nonspecific bowel gas pattern noted in the upper abdomen with air-fluid levels in the small bowel. Alonzo Bradshaw MD Abdomen/Pelvis CT 07/20/16 0000 Signed Impressions: Service Date/Time: Wednesday, July 20, 2016 18:24 - CONCLUSION: 1. Lower abdominal ventral midline hernia containing loop of small bowel. Small bowel is mildly distended somewhat diffusely with fluid and air. Cannot exclude a low grade partial bowel obstruction in the area of herniation. 2. No abnormal fluid collections to suggest abscess. No free air or free fluid. 3. Basilar and dependent lung consolidation, left greater than right. Pneumonia could have this appearance. Small left effusion. 4. NG tip in stomach. Inferior vena cava filter present. Connelly catheter in bladder. Jose Martin Valderrama MD Physical Exam GENERAL: awake, following some commands, on CPAP, NAD SKIN: Cool and dry. No generalized rash. HEAD: Atraumatic. Normocephalic. No temporal or scalp tenderness. EYES: [place] conjunctivae. No scleral icterus. No injection or drainage. ENT: Nose without bleeding, or purulent drainage. Has moist mucosa. NECK: Supple, nontender, no meningeal signs. Trach ok CARDIOVASCULAR: Regular rate and rhythm without murmurs, gallops, or rubs. RESPIRATORY: Coarse rhonchi GASTROINTESTINAL: Abdomen soft, globular, bowel sounds are present and normoactive. Not tender. No hepato-splenomegaly, or palpable masses. MUSCULOSKELETAL: Extremities without clubbing, cyanosis, or edema. . Feet warm. No joint effusion, or edema noted. NEUROLOGICAL: Awake following all commands LINE: RIJ line with no evidence of infection : Connelly in place, urine looks clear Assessment & Plan Remarks IMPRESSION Group A Strep sepsis, with shock, MOSF, present on admission, source is not established - ?primary bacteremia Respiratory failure PSAE PNA Renal failure, sp CVVHD Thrombocytopenia due to sepsis, no DIC - slowly improving Known DM, HTN, PVD, CAD Diarrhea, abx associated Fevers, low grade, intermittent - has PSAE in sputum RECOMMENDATION Monitor temps Change Cefepime to Levaquin Continue Tobra nebs Weaning per CCM Monitor progress Spoke with Dr Cuevas covering 08/09-08/11 Please call her if with any new ID issue or concerns D/W Ceci Macias Dr, MD August 08, 2016 14:32
[2016-08-08] MEDS: LEVOFLOXACIN 250 MG TAB PO SCH (16:26)
--- NOTE | 2016-08-08 16:52 | HHI.NPPN ---
Subjective History of Present Illness 71-year-old male with past medical history of diabetes mellitus, hypertension, ischemic heart disease, peripheral neuropathy, chronic kidney disease, history of deep vein thrombosis, hyperlipidemia was brought to the hospital because of generalized weakness, confusion and vomiting and diarrhea. I was called to see the patient because of elevated BUN and creatinine. The patient has history of acute kidney injury in the past and chronic kidney disease. His creatinine was around 1.2 to 1.4, this was in 2012. Additional Remarks Patient remain intubated, awake, clinically same. Review of Systems General Constitutional: Fatigue Respiratory Lungs: SOB, Cough, Sputum, Wheeze Objective Data Data 08/07/16 08/08/16 19:00 07:00 Intake Total 395 ml 784 ml Output Total 2750 ml 1250 ml Balance -2355 ml -466 ml Intake IV Total 258 ml 418 ml Tube Feeding 77 ml 206 ml Tube Irrigant 60 ml 160 ml Output Urine Total 350 ml 1250 ml Stool Total 100 ml Hemodialysis 2300 ml # Bowel Movements 0 Vital Signs Date Time Temp Pulse Resp B/P Pulse Ox O2 Delivery O2 Flow Rate FiO2 08/08/16 16:43 96 40 08/08/16 14:00 67 08/08/16 12:00 99.1 77 22 140/65 97 08/08/16 12:00 40 08/08/16 12:00 75 08/08/16 11:25 98 40 08/08/16 10:00 76 08/08/16 08:00 40 08/08/16 08:00 100.4 73 23 158/69 98 08/08/16 08:00 86 08/08/16 06:00 82 08/08/16 04:30 165/74 08/08/16 04:00 40 08/08/16 04:00 98.6 67 24 179/78 96 08/08/16 04:00 67 08/08/16 02:00 74 08/08/16 00:07 100 40 08/08/16 00:00 71 08/08/16 00:00 98.4 71 18 142/67 100 08/08/16 00:00 40 08/07/16 22:00 96 08/07/16 20:00 100 50 08/07/16 20:00 98.8 89 26 160/72 100 08/07/16 20:00 60 08/07/16 20:00 89 08/07/16 18:45 92 60 08/07/16 18:44 100 100 08/07/16 18:15 100 40 08/07/16 18:00 84 -: 08/08/16 0416 08/08/16 0416 Physical Exam General Appearance: No Acute Distress, Anxious Eyes Eye Exam: Pupils Equal Throat Throat Exam: Oral Mucosa Boring & Moist Neck Neck Exam: Neck Supple Pulmonary Resp Exam: Rhonchi, Decreased Bases, Diminished Breath Sounds, Poor Inspiratory Effort Cardiology CV Exam: Regular, Normal Sinus Rhythm Gastrointestinal/Abdomen GI Exam: Soft, Non-Tender, Bowel Sounds Present Extremeties Extremities Exam: Trace Edema Neurologic Neuro Exam: Alert, Awake Psychiatric Psych Exam: Appropriate Responses Assessment/Plan Assessment Summary: ADALID/Acute Renal Failure Electrolyte Assessment: Metabolic Acidosis Problem List: (1) Diabetes mellitus with neuropathy (2) Leukocytosis (3) Peripheral vascular disease (4) Severe sepsis with acute organ dysfunction (5) History of DVT (deep vein thrombosis) (6) Hypoxia (7) Acidosis (8) Lactic acidosis Plan Patient has some improvement in the urine out put. BP is has improved off pressors. BC results noted, seen by ID. On Unasyn and Flagyl, ID following. Repeat BC negative. Off pressors and the BP is stable. Creatinine still elevated, HD done yesterday, and tolerated well. Urine out put is better today. Still has elevated Creatinine, HD in AM. Weaning as per CCM. Problem Qualifiers (1) Diabetes mellitus with neuropathy: Qualified Code: E11.40 - Type 2 diabetes mellitus with diabetic neuropathy, unspecified group home insulin use status (2) Leukocytosis: Qualified Code: D72.829 - Leukocytosis, unspecified type Frank Magana MD August 08, 2016 16:52
--- NOTE | 2016-08-08 21:13 | HHI.CCPN ---
Subjective Remarks/Hospital Course 71-year-old male. Date of admission 07/20/2016. Past records includes diabetes with neuropathy and nephropathy, hypertension, dyslipidemia, chronic pain syndrome, history of DVT/PE on chronic anticoagulation, peripheral vascular disease with history of AAA, and osteoporosis. Patient recently C [place] 07/06/16. Patient sick contacts would include neighbor with "vital illness. Patient is to [facility] today with acute onset of diarrhea, hypoglycemia and chills. Upon arrival, patient was noted be acutely hypoxic and required a nonrebreather mask. Patient denies pleuritic chest pain , abdominal pain but positive for nausea and diarrhea. CT chest revealed bilateral lower lobe scarring, bilateral adrenal adenomas a nonspecific bowel gas pattern. Chest x-ray revealed no significant findings. Lab work included a lactic acid elevated 7.7, white blood cell count 12,000 in acute kidney injury with a creatinine of 3.0. Baseline around 1.5-2. Troponin was slightly elevated 0.14. EKG is currently pending. Upon arrival to [facility], patient was extremely mottled with rates in the 40s. Patient was emergently intubated please see note and a left IJ central line was placed. CT of the head, abdomen and pelvis currently pending. 07/21 Patient is sedated with Diprivan and Fentanyl and intubated. On Levophed 22 mics, Vasopressin and bicarb drip. BC from 07/20: GPC all 4 bottles. 07/22 Patient remains sedated and intubated On Levophed 22 mics, vasopressin and bicarb drip. Awaiting to start CVVHD today 07/23: Remains sedated, orally intubated on mech ventilation. On Levophed 15 mics per minute and low-dose vasopressin for pressor support. On CRRT. 07/24: Remains sedated, orally intubated on mechanical ventilation. On Levophed 7 mics per minute and low-dose vasopressin for pressor support. CRRT was stopped at 1:30 AM due to Air in system and has now been resumed. 2 Amps of bicarbonate given for metabolic acidosis while CRRT held and bicarbonate drip was started back yesterday 07/25: Remains critically ill, on CVVH. Levoped 6 mics per minute. White count has normalized, making slight amount of urine. Showing some signs of progress 07/26: Remains sedated, orally intubated on mechanical ventilation. Remains on Levophed 3 mics per minute, vasopressin 0.03 mics per minute. CRRT continues. 07/27: Remains sedated, orally intubated on mechanical ventilation. Remains on Levophed 2 mics per minute, vasopressin 0.03 mics per minute. On CRRT. 07/28: Remains sedated, orally intubated on mechanical ventilation. Off Levophed. Remains on vasopressin. CRRT clotted off this morning and is on hold currently. Nephrology to decide regarding regular hemodialysis as patient is now off Levophed. 07/29: Sedated, arousable, orally intubated on mechanical ventilation. Off Levophed and vasopressin drips. To be initiated on hemodialysis today. Tolerating tube feeds. 07/30: Sedated, arousable, orally intubated on mechanical ventilation. Hemoglobin dropped to 6.9 this morning no evidence of melena or rectal bleeding noted. Stat CT abdomen pelvis did not reveal any evidence of retroperitoneal hematoma. Patient is maintaining his blood pressure and has not had any hypotension. 2 units PRBCs ordered this morning. 07/31: Sedated, arousable, orally intubated on mechanical ventilation. Underwent hemodialysis this morning. 08/01: Arousable off sedation, weakly grasps on command and wiggles toes. Remains orally intubated on mechanical ventilation. Tolerating tube feeds. 08/02: Awake off sedation, orally intubated on mechanical ventilation. Tolerating tube feeds. Awaiting hemodialysis today. 08/03: Patient failed extubation on 08/02 and required reintubation due to inability to mobilize secretions and worsening hypoxia about 8 hours following extubation. Sedated, orally intubated on mechanical ventilation. Started on Mucomyst and percussion therapy to mobilize secretions. 08/04: Remains sedated, orally intubated on mechanical ventilation. Significant pulmonary secretions being suctioned out following initiation of Mucomyst and percussion therapy per overnight DONOR SERVICES SPECIALIST. Tolerating tube feeds. 08/05: Arousable off sedation, orally intubated on mechanical ventilation. Underwent hemodialysis today. Still has copious pulmonary secretions though these are being mobilized with Mucomyst and percussion therapy. Tolerating tube feeds. On C Pap trial to decide extubation. If he fails extubation or is unable to get extubated today will consider for tracheostomy tomorrow. 08/06: failing CPAP trials for tachypnea. 08/07: mental status improving. BP very well controlled off cardene. plan for trach today. 08/08: trach yesterday. now doing very well. on minimal PSV settings. plan for PEG on thursday. family at bedside and very happy with his improvements. patient smiled today for the first time in a few days. Objective Vital Signs Date Time Temp Pulse Resp B/P Pulse Ox O2 Delivery O2 Flow Rate FiO2 08/08/16 19:31 96 40 08/08/16 18:00 83 08/08/16 17:30 T-piece 6.00 08/08/16 16:00 98.4 23 154/70 Intake and Output 08/07/16 08/07/16 08/07/16 07:59 15:59 23:59 Intake Total 685 ml 395 ml 328 ml Output Total 400 ml 2750 ml 600 ml Balance 285 ml -2355 ml -272 ml Result Diagram: 08/08/16 0416 08/08/16 0416 Imaging Last 48 hours Impressions Chest X-Ray 08/02/16 1421 Signed Impressions: Service Date/Time: Tuesday, August 02, 2016 14:42 - CONCLUSION: No significant interval change in bilateral pulmonary opacity. Castillo Roldan MD Last 48 hours Impressions Chest X-Ray 08/02/16 0600 Signed Impressions: Service Date/Time: Tuesday, August 02, 2016 05:47 - CONCLUSION: 1. Support apparatus in satisfactory position. Bilateral mostly basilar airspace disease and effusions similar to July 30. Jose Martin Valderrama MD Last 24 hours Impressions Chest X-Ray 07/28/16 0600 Signed Impressions: Service Date/Time: Thursday, July 28, 2016 03:09 - CONCLUSION: No significant change. Hazy opacity remains in both lungs most consistent with congestive heart failure. Alonzo Bradshaw MD Last 24 hours Impressions Chest X-Ray 07/26/16 0600 Signed Impressions: Service Date/Time: Tuesday, July 26, 2016 04:56 - CONCLUSION: No significant change. Jovan Aldridge MD Last 48 hours Impressions Abdomen X-Ray 07/24/16 0749 Signed Impressions: Service Date/Time: July 08:28 - CONCLUSION: Air-filled bowel loops centrally but no obstruction seen. Uli Atkins MD Chest X-Ray 07/24/16 0600 Signed Impressions: Service Date/Time: July 05:36 - CONCLUSION: Unchanged bibasilar infiltrates. Omer Cheng Jr., MD Last Impressions Chest X-Ray 07/21/16 0000 Signed Impressions: Service Date/Time: Thursday, July 21, 2016 22:13 - CONCLUSION: Satisfactory central line positioning. Worsening aeration. Berlin Guillermo MD Renal Ultrasound 07/20/16 0000 Signed Impressions: Service Date/Time: Wednesday, July 20, 2016 14:32 - CONCLUSION: 1. No acute findings. Renal ultrasound unremarkable. Bladder was not well-visualized. Jose Martin Valderrama MD Lower Extremity Ultrasound 07/20/16 0000 Signed Impressions: Service Date/Time: Wednesday, July 20, 2016 14:39 - CONCLUSION: Negative exam with no evidence of deep venous thrombosis. Alonzo Bradshaw MD Head CT 07/20/16 Signed Impressions: Service Date/Time: Wednesday, July 20, 2016 18:21 - CONCLUSION: 1. No acute intracranial abnormalities. Mild mucosal thickening of the ethmoid air cells. Jose Martin Valderrama MD Chest CT 07/20/16 Signed Impressions: Service Date/Time: Wednesday, July 20, 2016 11:28 - CONCLUSION: 1. Chronic scarring in the lung bases left greater than right. 2. No focal consolidation. 3. Bilateral adrenal masses left greater than right most consistent with adenomas. 4. Nonspecific bowel gas pattern noted in the upper abdomen with air-fluid levels in the small bowel. Alonzo Bradshaw MD Abdomen/Pelvis CT 07/20/16 Signed Impressions: Service Date/Time: Wednesday, July 20, 2016 18:24 - CONCLUSION: 1. Lower abdominal ventral midline hernia containing loop of small bowel. Small bowel is mildly distended somewhat diffusely with fluid and air. Cannot exclude a low grade partial bowel obstruction in the area of herniation. 2. No abnormal fluid collections to suggest abscess. No free air or free fluid. 3. Basilar and dependent lung consolidation, left greater than right. Pneumonia could have this appearance. Small left effusion. 4. NG tip in stomach. Inferior vena cava filter present. Connelly catheter in bladder. Jose Martin Valderrama MD Objective Remarks GENERAL: Patient is 71 yo elderly male, trached. sitting in bed, on mechanical ventilation SKIN: Warm and dry. HEAD: Normocephalic. EYES: Pallor present. No scleral icterus. No injection or drainage. NECK: trachea midline. No JVD , fresh tracheostomy in place, minimal sanguinous drainage around trach. CARDIOVASCULAR: Regular rate and rhythm without murmurs, gallops, or rubs. RESPIRATORY: Orally intubated on mechanical ventilation, GASTROINTESTINAL: Abdomen soft, non-tender, nondistended. Bowel sounds sluggish Neuro: Arousable off sedation, following commands. Moves both upper extremities weakly and wiggles toes bilaterally. Extremities: Warm bilaterally, Bilateral edema A/P Assessment and Plan Neuro/Psych: Peripheral neuropathy Chronic pain syndrome Goal RASS 0 melatonin QHS for sleep, zyprexa prn if not asleep by 2300. 07/20 CT brain: No acute intracranial abnormalities. CV: Elevated troponin Hypertension- improving. Dyslipidemia Lactic acidosis- resolved. Septic shock- resolved. Peripheral vascular disease History of AAA Off Stress dose steroids- Hydrocortisone decreased to 50mg daily on 07/29 and stopped on 07/31 Continue with ASA daily Echo showed EF 35-40% amlodipine 10mg po daily carvedilol 12.5mg po q12h hydralazine and labetalol prn. goal sbp < 160. Resp: Acute-->chronic hypoxemic respiratory failure Tobaccoism s/p trach 08/[address] Barrera/Dr. Upton PSV. will trial 20 minutes of trach collar, and then PSV overnight. Ventilator bundle. nebs prn. CT chest 07/20 revealed left greater than right basilar scarring. Bilateral adrenal adenomas. No focal consolidation OOB to stretcher chair daily. GI: Tolerating tube feeds- Nepro with goal rate 40ml/hr. Reglan 5 mg IV every 8 hours Protonix for GI prophylaxis Colace/as needed Senokot for bowel regimen CT abdomen reviewed. Gen surgery- Dr Roman- no surgical interventions. GI consult for PEG placement. : Strict intake output, monitor and replete electrolytes, follow BUN/creatinine. Started CRRT on 07/22, being followed by nephrology Dr. Magana. CRRT on hold since 07/28. Switched to hemodialysis on 07/29. plan for IHD tomorrow. Renal US: No acute findings --remove Connelly. condom cath. Endo: Diabetes mellitus with nephropathy and neuropathy Bilateral adrenal adenoma Hyperglycemia Decreased Levemir to 10 units subcutaneously every 12 hourly on 07/31. On high dose sliding scale insulin on 07/29 for better glycemic control. Off steroids. 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 HIT screen negative. Platelets have normalized. Started heparin 5000 units subcutaneously every 12 hourly on 07/29, increased to 5000 units subcutaneously every 8 hourly on 07/31. Transfused 2 units PRBCs for drop in hemoglobin to 6.9 on 07/30. CT abdomen pelvis with no evidence of retroperitoneal hematoma. Most likely secondary to blood loss with CRRT regarding multiple times. Maintaining H&H. Advanced to full anticoagulation with heparin GTT on 08/01 ID: Strep Bacteremia Sepsis Pneumonia Continue with abx per ID - Unasyn switched to cefepime on 07/31 per ID due to pseudomonas in sputum. ID planning to initiate tobramycin nebulizer treatments. ID switched cefepime to Levaquin 08/08 Clindamycin stopped 07/29, vanco x 1 dose on admission. Pertinent cultures BC 07/20- GPC, Group A Beta strep Urine cx 07/20 : neg Strep pneumonia nad Legionella urinary Ag negative Follow up on Sputum cx, BC 07/21, 07/22- NGTD 07/30 Sputum c/s with pseudomonas MSK: Osteoarthritis Holding vitamin D 1000 units by mouth daily. Access - piv -Right IJ vascath placed 07/22 Prophylaxis - GI - Protonix - DVT - SCD/heparin SQ. Heparin gtt 08/01 for full anticoagulation. - Doppler US LE negative for DVT Palliative care is following Updated patient's on 08/05 regarding current clinical condition and plan of care and she voiced understanding. I have also previously explained possible need for tracheostomy and PEG tube. D/W DONOR SERVICES SPECIALIST Discussed with Dr. Conklin from palliative care Vitor Barrera MD August 08, 2016 21:13
[2016-08-08] MEDS: MELATONIN 5 MG TAB PO SCH (21:29)
[2016-08-08] MEDS ORDERED: OLANZapine ODT 5 MG TAB PO PRN (23:00)
[2016-08-09] VITALS (17 sets, daily range): BP systolic 157–170; BP diastolic 70–77; PULSE 76–92; RESP 18–25; TEMP 98.3–100.1; O2SAT 93–100
[2016-08-09] MEDS: METOCLOPRAMIDE HCL 10 MG/2 ML VIAL IV PUSH SCH ×3 (00:19→16:44)
[2016-08-09] MEDS: CHLORHEXIDINE GLUCONATE 2 % 1 PACK (2 CLOTHS) TOP SCH (03:16)
[2016-08-09] MEDS: LABETALOL HCL 100 MG/20 ML VIAL IV PRN ×3 (03:16→23:48)
[2016-08-09] MEDS: INSULIN ASPART SUPPLEMENTAL SCALE SQ SCH ×3 (05:03→18:00)
[2016-08-09 05:16] LABS: APTT (PATIENT) 47.3 SEC (24.3-30.1)
[2016-08-09 05:29] LABS: HEMATOCRIT 21.4 % (39.0-51.0); MEAN CELL VOLUME 89.8 FL (80.0-100.0); MEAN CORPUSCULAR HEMOGLOBIN 30.2 PG (27.0-34.0); MEAN CORPUSCULAR HGB CONC 33.6 % (32.0-36.0); PLATELET COUNT 198 TH/MM3 (150-450); RED BLOOD COUNT 2.38 MIL/MM3 (4.50-5.90); RED CELL DISTRIBUTION WIDTH 14.3 % (11.6-17.2); REVIEW FLAG FINAL; WHITE BLOOD COUNT 5.2 TH/MM3 (4.0-11.0)
[2016-08-09 05:32] LABS: BICARBONATE 27.5 MEQ/L (21.0-32.0); POTASSIUM 3.6 MEQ/L (3.5-5.1)
[2016-08-09] MEDS: CHLORHEXIDINE 0.12% (ORAL KIT) 15 ML CUP MT SCH ×2 (08:00→20:16)
[2016-08-09] MEDS: RESP: ACETYLCYSTEINE 10% 30 ML NEB NEB SCH ×3 (08:13→23:36)
[2016-08-09] MEDS: RESP: ALBUTEROL 2.5 MG/3 ML NEB (PRN) INH ×3 (08:13→23:36)
[2016-08-09] MEDS: RESP: TOBRAMYCIN SULFATE 80 MG/2 ML NEB NEB SCH ×2 (08:59→20:11)
[2016-08-09] MEDS: INSULIN DETEMIR 100 UNITS/ML VIAL SQ SCH ×2 (09:00→20:34)
[2016-08-09] MEDS: DOCUSATE SODIUM 100 MG CAP PO SCH ×2 (09:00→20:15)
[2016-08-09] MEDS: LACTOBACILLUS ACIDOPHILUS TAB PO SCH ×3 (09:00→16:44)
[2016-08-09] MEDS: SODIUM CHLORIDE 0.9% FLUSH 10 ML FLUSH IV FLUSH SCH ×2 (09:00→20:15)
[2016-08-09] MEDS: SENNOSIDES SYRUP 8.8 MG/5 ML CUP OG-TUBE SCH (09:00)
[2016-08-09] MEDS: SODIUM CHLORIDE 0.9% FLUSH 10 ML FLUSH IVF SCH (09:00)
[2016-08-09] MEDS: PANTOPRAZOLE SODIUM 40 MG VIAL IV SCH (09:14)
[2016-08-09] MEDS: LEVOFLOXACIN 250 MG TAB PO SCH (09:15)
[2016-08-09] MEDS: ASPIRIN 81 MG CHEW TAB CHEW SCH (09:15)
[2016-08-09] MEDS: CARVEDILOL 12.5 MG TAB PO SCH ×2 (09:15→20:15)
[2016-08-09] MEDS: HEPARIN-D5W INJ 250 ML IV SCH ×2 (10:24→21:33)
[2016-08-09] MEDS ORDERED: ALTEPLASE RECOMBINANT 2 MG VIAL INTRACATH ONE (10:45)
--- NOTE | 2016-08-09 11:21 | HHI.NPPN ---
Subjective History of Present Illness 71-year-old male with past medical history of diabetes mellitus, hypertension, ischemic heart disease, peripheral neuropathy, chronic kidney disease, history of deep vein thrombosis, hyperlipidemia was brought to the hospital because of generalized weakness, confusion and vomiting and diarrhea. I was called to see the patient because of elevated BUN and creatinine. The patient has history of acute kidney injury in the past and chronic kidney disease. His creatinine was around 1.2 to 1.4, this was in 2012. Additional Remarks Patient remain intubated, awake, clinically same. Review of Systems General Constitutional: Fatigue Respiratory Lungs: SOB, Cough, Sputum, Wheeze Objective Data Data 08/08/16 08/09/16 19:00 07:00 Intake Total 519 ml 957 ml Output Total 300 ml 625 ml Balance 219 ml 332 ml Intake IV Total 236 ml 436 ml Tube Feeding 223 ml 521 ml Tube Irrigant 60 ml Output Urine Total 300 ml 625 ml # Bowel Movements 0 1 Vital Signs Date Time Temp Pulse Resp B/P Pulse Ox O2 Delivery O2 Flow Rate FiO2 08/09/16 10:00 83 08/09/16 08:23 97 40 08/09/16 08:00 86 08/09/16 08:00 40 08/09/16 08:00 100.1 86 18 170/73 95 08/09/16 06:00 90 08/09/16 04:00 80 08/09/16 04:00 100.0 80 22 163/72 94 08/09/16 04:00 40 08/09/16 03:26 93 40 08/09/16 02:00 76 08/09/16 01:35 95 40 08/09/16 00:00 78 08/09/16 00:00 98.3 78 25 162/72 100 08/09/16 00:00 40 08/08/16 22:28 95 40 08/08/16 22:00 88 08/08/16 20:00 82 08/08/16 20:00 99.2 82 24 155/70 100 08/08/16 20:00 40 08/08/16 19:31 96 40 08/08/16 18:10 95 40 08/08/16 18:00 40 08/08/16 18:00 83 08/08/16 17:30 95 T-piece 6.00 50 08/08/16 17:28 50 08/08/16 16:43 96 40 08/08/16 16:35 40 08/08/16 16:00 98.4 82 23 154/70 97 08/08/16 16:00 82 08/08/16 14:00 67 08/08/16 12:00 99.1 77 22 140/65 97 08/08/16 12:00 40 08/08/16 12:00 75 08/08/16 11:30 40 08/08/16 11:25 98 40 -: 08/09/16 0433 08/09/16 0433 Physical Exam General Appearance: No Acute Distress, Anxious Eyes Eye Exam: Pupils Equal Throat Throat Exam: Oral Mucosa Humphrey & Moist Neck Neck Exam: Neck Supple Pulmonary Resp Exam: Rhonchi, Decreased Bases, Diminished Breath Sounds, Poor Inspiratory Effort Cardiology CV Exam: Regular, Normal Sinus Rhythm Gastrointestinal/Abdomen GI Exam: Soft, Non-Tender, Bowel Sounds Present Extremeties Extremities Exam: Trace Edema Neurologic Neuro Exam: Alert, Awake Psychiatric Psych Exam: Appropriate Responses Assessment/Plan Assessment Summary: ADALID/Acute Renal Failure Electrolyte Assessment: Metabolic Acidosis Problem List: (1) Diabetes mellitus with neuropathy (2) Leukocytosis (3) Peripheral vascular disease (4) Severe sepsis with acute organ dysfunction (5) History of DVT (deep vein thrombosis) (6) Hypoxia (7) Acidosis (8) Lactic acidosis Plan Patient has some improvement in the urine out put. BP is has improved off pressors. sputum c/s results noted Pseudomonas, seen by ID. On Levaquin, ID following. Repeat BC negative. Off pressors and the BP is stable. Creatinine still elevated, HD proceedings noted UF 3.5 L tolerating it Blood flow low, Cathflo ordered Weaning as per CCM. Problem Qualifiers (1) Diabetes mellitus with neuropathy: Qualified Code: E11.40 - Type 2 diabetes mellitus with diabetic neuropathy, unspecified oil heaterman insulin use status (2) Leukocytosis: Qualified Code: D72.829 - Leukocytosis, unspecified type Nano Faustin MD August 09, 2016 11:21
--- NOTE | 2016-08-09 15:38 | HHI.CCPN ---
Subjective Remarks/Hospital Course 71-year-old male. Date of admission 07/20/2016. Past records includes diabetes with neuropathy and nephropathy, hypertension, dyslipidemia, chronic pain syndrome, history of DVT/PE on chronic anticoagulation, peripheral vascular disease with history of AAA, and osteoporosis. Patient recently C [place] 07/06/16. Patient sick contacts would include neighbor with "vital illness. Patient is to [facility] today with acute onset of diarrhea, hypoglycemia and chills. Upon arrival, patient was noted be acutely hypoxic and required a nonrebreather mask. Patient denies pleuritic chest pain , abdominal pain but positive for nausea and diarrhea. CT chest revealed bilateral lower lobe scarring, bilateral adrenal adenomas a nonspecific bowel gas pattern. Chest x-ray revealed no significant findings. Lab work included a lactic acid elevated 7.7, white blood cell count 12,000 in acute kidney injury with a creatinine of 3.0. Baseline around 1.5-2. Troponin was slightly elevated 0.14. EKG is currently pending. Upon arrival to [facility], patient was extremely mottled with rates in the 40s. Patient was emergently intubated please see note and a left IJ central line was placed. CT of the head, abdomen and pelvis currently pending. 07/21 Patient is sedated with Diprivan and Fentanyl and intubated. On Levophed 22 mics, Vasopressin and bicarb drip. BC from 07/20: GPC all 4 bottles. 07/22 Patient remains sedated and intubated On Levophed 22 mics, vasopressin and bicarb drip. Awaiting to start CVVHD today 07/23: Remains sedated, orally intubated on mech ventilation. On Levophed 15 mics per minute and low-dose vasopressin for pressor support. On CRRT. 07/24: Remains sedated, orally intubated on mechanical ventilation. On Levophed 7 mics per minute and low-dose vasopressin for pressor support. CRRT was stopped at 1:30 AM due to Air in system and has now been resumed. 2 Amps of bicarbonate given for metabolic acidosis while CRRT held and bicarbonate drip was started back yesterday 07/25: Remains critically ill, on CVVH. Levoped 6 mics per minute. White count has normalized, making slight amount of urine. Showing some signs of progress 07/26: Remains sedated, orally intubated on mechanical ventilation. Remains on Levophed 3 mics per minute, vasopressin 0.03 mics per minute. CRRT continues. 07/27: Remains sedated, orally intubated on mechanical ventilation. Remains on Levophed 2 mics per minute, vasopressin 0.03 mics per minute. On CRRT. 07/28: Remains sedated, orally intubated on mechanical ventilation. Off Levophed. Remains on vasopressin. CRRT clotted off this morning and is on hold currently. Nephrology to decide regarding regular hemodialysis as patient is now off Levophed. 07/29: Sedated, arousable, orally intubated on mechanical ventilation. Off Levophed and vasopressin drips. To be initiated on hemodialysis today. Tolerating tube feeds. 07/30: Sedated, arousable, orally intubated on mechanical ventilation. Hemoglobin dropped to 6.9 this morning no evidence of melena or rectal bleeding noted. Stat CT abdomen pelvis did not reveal any evidence of retroperitoneal hematoma. Patient is maintaining his blood pressure and has not had any hypotension. 2 units PRBCs ordered this morning. 07/31: Sedated, arousable, orally intubated on mechanical ventilation. Underwent hemodialysis this morning. 08/01: Arousable off sedation, weakly grasps on command and wiggles toes. Remains orally intubated on mechanical ventilation. Tolerating tube feeds. 08/02: Awake off sedation, orally intubated on mechanical ventilation. Tolerating tube feeds. Awaiting hemodialysis today. 08/03: Patient failed extubation on 08/02 and required reintubation due to inability to mobilize secretions and worsening hypoxia about 8 hours following extubation. Sedated, orally intubated on mechanical ventilation. Started on Mucomyst and percussion therapy to mobilize secretions. 08/04: Remains sedated, orally intubated on mechanical ventilation. Significant pulmonary secretions being suctioned out following initiation of Mucomyst and percussion therapy per overnight [employer]. Tolerating tube feeds. 08/05: Arousable off sedation, orally intubated on mechanical ventilation. Underwent hemodialysis today. Still has copious pulmonary secretions though these are being mobilized with Mucomyst and percussion therapy. Tolerating tube feeds. On C Pap trial to decide extubation. If he fails extubation or is unable to get extubated today will consider for tracheostomy tomorrow. 08/06: failing CPAP trials for tachypnea. 08/07: mental status improving. BP very well controlled off cardene. plan for trach today. 08/08: trach yesterday. now doing very well. on minimal PSV settings. plan for PEG on thursday. family at bedside and very happy with his improvements. patient smiled today for the first time in a few days. 08/09: tolerated 30 minutes of t-piece yesterday. rested on rate overnight. back on PSV this morning. interactive. doing well. denies complaints. plan for PEG thursday. Objective Vital Signs Date Time Temp Pulse Resp B/P Pulse Ox O2 Delivery O2 Flow Rate FiO2 08/09/16 14:00 78 08/09/16 12:45 40 08/09/16 12:00 99.2 21 157/70 96 08/08/16 17:30 T-piece 6.00 Intake and Output 08/08/16 08/08/16 08/09/16 08:00 16:00 00:00 Intake Total 456 ml 519 ml 590 ml Output Total 650 ml 300 ml 275 ml Balance -194 ml 219 ml 315 ml Result Diagram: 08/09/16 0433 08/09/16 0433 Imaging Last 48 hours Impressions Chest X-Ray 08/02/16 1421 Signed Impressions: Service Date/Time: Tuesday, August 02, 2016 14:42 - CONCLUSION: No significant interval change in bilateral pulmonary opacity. Castillo Roldan MD Last 48 hours Impressions Chest X-Ray 08/02/16 0600 Signed Impressions: Service Date/Time: Tuesday, August 02, 2016 05:47 - CONCLUSION: 1. Support apparatus in satisfactory position. Bilateral mostly basilar airspace disease and effusions similar to July 30. Jose Martin Valderrama MD Last 24 hours Impressions Chest X-Ray 07/28/16 0600 Signed Impressions: Service Date/Time: Thursday, July 28, 2016 03:09 - CONCLUSION: No significant change. Hazy opacity remains in both lungs most consistent with congestive heart failure. Alonzo Bradshaw MD Last 24 hours Impressions Chest X-Ray 07/26/16 0600 Signed Impressions: Service Date/Time: Tuesday, July 26, 2016 04:56 - CONCLUSION: No significant change. Jovan Aldridge MD Last 48 hours Impressions Abdomen X-Ray 07/24/16 0749 Signed Impressions: Service Date/Time: July 08:28 - CONCLUSION: Air-filled bowel loops centrally but no obstruction seen. Uli Atkins MD Chest X-Ray 07/24/16 0600 Signed Impressions: Service Date/Time: July 05:36 - CONCLUSION: Unchanged bibasilar infiltrates. Omer Cheng Jr., MD Last Impressions Chest X-Ray 07/21/16 0000 Signed Impressions: Service Date/Time: Thursday, July 21, 2016 22:13 - CONCLUSION: Satisfactory central line positioning. Worsening aeration. [place] Guillermo MD Renal Ultrasound 07/20/16 0000 Signed Impressions: Service Date/Time: Wednesday, July 20, 2016 14:32 - CONCLUSION: 1. No acute findings. Renal ultrasound unremarkable. Bladder was not well-visualized. Jose Martin Valderrama MD Lower Extremity Ultrasound 07/20/16 0000 Signed Impressions: Service Date/Time: Wednesday, July 20, 2016 14:39 - CONCLUSION: Negative exam with no evidence of deep venous thrombosis. Alonzo Bradshaw MD Head CT 07/20/16 0000 Signed Impressions: Service Date/Time: Wednesday, July 20, 2016 18:21 - CONCLUSION: 1. No acute intracranial abnormalities. Mild mucosal thickening of the ethmoid air cells. Jose Martin Valderrama MD Chest CT 07/20/16 0000 Signed Impressions: Service Date/Time: Wednesday, July 20, 2016 11:28 - CONCLUSION: 1. Chronic scarring in the lung bases left greater than right. 2. No focal consolidation. 3. Bilateral adrenal masses left greater than right most consistent with adenomas. 4. Nonspecific bowel gas pattern noted in the upper abdomen with air-fluid levels in the small bowel. Alonzo Bradshaw MD Abdomen/Pelvis CT 07/20/16 0000 Signed Impressions: Service Date/Time: Wednesday, July 20, 2016 18:24 - CONCLUSION: 1. Lower abdominal ventral midline hernia containing loop of small bowel. Small bowel is mildly distended somewhat diffusely with fluid and air. Cannot exclude a low grade partial bowel obstruction in the area of herniation. 2. No abnormal fluid collections to suggest abscess. No free air or free fluid. 3. Basilar and dependent lung consolidation, left greater than right. Pneumonia could have this appearance. Small left effusion. 4. NG tip in stomach. Inferior vena cava filter present. Connelly catheter in bladder. Jose Martin Valderrama MD Objective Remarks GENERAL: Patient is 71 yo elderly male, trached. sitting in bed, on mechanical ventilation SKIN: Warm and dry. HEAD: Normocephalic. EYES: Pallor present. No scleral icterus. No injection or drainage. NECK: trachea midline. No JVD , fresh tracheostomy in place, minimal sanguinous drainage around trach. CARDIOVASCULAR: Regular rate and rhythm without murmurs, gallops, or rubs. RESPIRATORY: Orally intubated on mechanical ventilation, GASTROINTESTINAL: Abdomen soft, non-tender, nondistended. Bowel sounds sluggish Neuro: Arousable off sedation, following commands. Moves both upper extremities weakly and wiggles toes bilaterally. Extremities: Warm bilaterally, Bilateral edema A/P Assessment and Plan Neuro/Psych: Peripheral neuropathy Chronic pain syndrome Goal RASS 0 melatonin QHS for sleep, zyprexa prn if not asleep by 2300. 07/20 CT brain: No acute intracranial abnormalities. CV: Elevated troponin Hypertension- improving. Dyslipidemia Lactic acidosis- resolved. Septic shock- resolved. Peripheral vascular disease History of AAA Off Stress dose steroids- Hydrocortisone decreased to 50mg daily on 07/29 and stopped on 07/31 Continue with ASA daily Echo showed EF 35-40% amlodipine 10mg po daily carvedilol 12.5mg po q12h hydralazine and labetalol prn. goal sbp < 160. Resp: Acute-->chronic hypoxemic respiratory failure Tobaccoism s/p trach 08/[address] Barrera/Dr. Upton PSV. will trial 60 minutes of trach collar, and then PSV overnight. Ventilator bundle. nebs prn. CT chest 07/20 revealed left greater than right basilar scarring. Bilateral adrenal adenomas. No focal consolidation OOB to stretcher chair daily. GI: Tolerating tube feeds- Nepro with goal rate 40ml/hr. Reglan 5 mg IV every 8 hours Protonix for GI prophylaxis Colace/as needed Senokot for bowel regimen CT abdomen reviewed. Gen surgery- Dr Roman- no surgical interventions. GI consult for PEG placement. : Strict intake output, monitor and replete electrolytes, follow BUN/creatinine. Started CRRT on 07/22, being followed by nephrology Dr. Magana. CRRT on hold since 07/28. Switched to hemodialysis on 07/29. plan for IHD tomorrow. Renal US: No acute findings --remove Connelly. condom cath. Endo: Diabetes mellitus with nephropathy and neuropathy Bilateral adrenal adenoma Hyperglycemia Decreased Levemir to 10 units subcutaneously every 12 hourly on 07/31. On high dose sliding scale insulin on 07/29 for better glycemic control. Off steroids. 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 HIT screen negative. Platelets have normalized. Started heparin 5000 units subcutaneously every 12 hourly on 07/29, increased to 5000 units subcutaneously every 8 hourly on 07/31. Transfused 2 units PRBCs for drop in hemoglobin to 6.9 on 07/30. CT abdomen pelvis with no evidence of retroperitoneal hematoma. Most likely secondary to blood loss with CRRT regarding multiple times. Maintaining H&H. Advanced to full anticoagulation with heparin GTT on 08/01 ID: Strep Bacteremia Sepsis Pneumonia Continue with abx per ID - Unasyn switched to cefepime on 07/31 per ID due to pseudomonas in sputum. ID planning to initiate tobramycin nebulizer treatments. ID switched cefepime to Levaquin 08/08 Clindamycin stopped 07/29, vanco x 1 dose on admission. Pertinent cultures BC 07/20- GPC, Group A Beta strep Urine cx 07/20 : neg Strep pneumonia nad Legionella urinary Ag negative Follow up on Sputum cx, BC 07/21, 07/22- NGTD 07/30 Sputum c/s with pseudomonas MSK: Osteoarthritis Holding vitamin D 1000 units by mouth daily. Access - piv -Right IJ vascath placed 07/22 Prophylaxis - GI - Protonix - DVT - SCD/heparin SQ. Heparin gtt 08/01 for full anticoagulation. - Doppler US LE negative for DVT Palliative care is following Updated patient's on 08/05 regarding current clinical condition and plan of care and she voiced understanding. I have also previously explained possible need for tracheostomy and PEG tube. D/W [employer] HELPER Discussed with Dr. Conklin from palliative care Vitor Barrera MD August 09, 2016 15:38
[2016-08-09] MEDS: MELATONIN 5 MG TAB PO SCH (20:15)
[2016-08-10] VITALS (16 sets, daily range): BP systolic 132–171; BP diastolic 22–80; PULSE 86–101; RESP 17–25; TEMP 98.1–99.4; O2SAT 94–100
[2016-08-10] MEDS: ACETAMINOPHEN/HYDROcodone 325 MG/5 MG TAB PO PRN (00:58)
[2016-08-10] MEDS: METOCLOPRAMIDE HCL 10 MG/2 ML VIAL IV PUSH SCH ×3 (00:58→17:00)
[2016-08-10] MEDS: hydrALAZINE HCL 20 MG/ML VIAL IV PUSH PRN (03:07)
[2016-08-10 04:34] LABS: HEMATOCRIT 23.2 % (39.0-51.0); MEAN CELL VOLUME 89.6 FL (80.0-100.0); MEAN CORPUSCULAR HEMOGLOBIN 30.7 PG (27.0-34.0); MEAN CORPUSCULAR HGB CONC 34.3 % (32.0-36.0); PLATELET COUNT 228 TH/MM3 (150-450); RED BLOOD COUNT 2.59 MIL/MM3 (4.50-5.90); REVIEW FLAG FINAL; WHITE BLOOD COUNT 6.4 TH/MM3 (4.0-11.0)
[2016-08-10] MEDS: CHLORHEXIDINE GLUCONATE 2 % 1 PACK (2 CLOTHS) TOP SCH (04:36)
[2016-08-10 04:54] LABS: BICARBONATE 28.9 MEQ/L (21.0-32.0); POTASSIUM 3.4 MEQ/L (3.5-5.1)
[2016-08-10] MEDS: INSULIN ASPART SUPPLEMENTAL SCALE SQ SCH ×4 (06:00→18:00)
[2016-08-10] MEDS: RESP: ACETYLCYSTEINE 10% 30 ML NEB NEB SCH ×2 (08:35→15:57)
[2016-08-10] MEDS: RESP: ALBUTEROL 2.5 MG/3 ML NEB (PRN) INH ×2 (08:35→15:57)
[2016-08-10] MEDS: RESP: TOBRAMYCIN SULFATE 80 MG/2 ML NEB NEB SCH ×2 (08:35→20:39)
[2016-08-10] MEDS: SODIUM CHLORIDE 0.9% FLUSH 10 ML FLUSH IV FLUSH SCH ×2 (08:45→20:32)
[2016-08-10] MEDS: SODIUM CHLORIDE 0.9% FLUSH 10 ML FLUSH IVF SCH (08:45)
[2016-08-10] MEDS: SENNOSIDES SYRUP 8.8 MG/5 ML CUP OG-TUBE SCH (09:00)
[2016-08-10] MEDS: CHLORHEXIDINE 0.12% (ORAL KIT) 15 ML CUP MT SCH ×2 (09:19→20:32)
[2016-08-10] MEDS: DOCUSATE SODIUM 100 MG CAP PO SCH ×2 (09:20→20:13)
[2016-08-10] MEDS: INSULIN DETEMIR 100 UNITS/ML VIAL SQ SCH ×2 (09:20→20:32)
[2016-08-10] MEDS: ASPIRIN 81 MG CHEW TAB CHEW SCH (09:20)
[2016-08-10] MEDS: CARVEDILOL 12.5 MG TAB PO SCH ×2 (09:20→20:32)
[2016-08-10] MEDS: LACTOBACILLUS ACIDOPHILUS TAB PO SCH ×3 (09:20→18:00)
[2016-08-10] MEDS: PANTOPRAZOLE SODIUM 40 MG VIAL IV SCH (09:20)
[2016-08-10] MEDS: LEVOFLOXACIN 250 MG TAB PO SCH (09:21)
[2016-08-10] MEDS: LABETALOL HCL 100 MG/20 ML VIAL IV PRN (09:22)
[2016-08-10] MEDS: HEPARIN-D5W INJ 250 ML IV SCH (12:00)
--- NOTE | 2016-08-10 14:16 | HHI.NPPN ---
Subjective History of Present Illness 71-year-old male with past medical history of diabetes mellitus, hypertension, ischemic heart disease, peripheral neuropathy, chronic kidney disease, history of deep vein thrombosis, hyperlipidemia was brought to the hospital because of generalized weakness, confusion and vomiting and diarrhea. I was called to see the patient because of elevated BUN and creatinine. The patient has history of acute kidney injury in the past and chronic kidney disease. His creatinine was around 1.2 to 1.4, this was in 2012. Additional Remarks Patient off vent awake, Review of Systems General Constitutional: Fatigue Respiratory Lungs: SOB, Cough, Sputum, Wheeze Objective Data Data 08/09/16 08/10/16 19:00 07:00 Intake Total 511 ml 907 ml Output Total 3775 ml 475 ml Balance -3264 ml 432 ml Intake IV Total 182 ml 354 ml Tube Feeding 299 ml 433 ml Tube Irrigant 30 ml 60 ml Other 60 ml Output Urine Total 775 ml 475 ml Hemodialysis 3000 ml Bladder Scan Volume Amount 438 ml # Bowel Movements 1 3 Vital Signs Date Time Temp Pulse Resp B/P Pulse Ox O2 Delivery O2 Flow Rate FiO2 08/10/16 14:00 93 08/10/16 12:00 50 08/10/16 12:00 86 08/10/16 12:00 98.7 92 22 138/65 94 08/10/16 11:17 94 Mechanical Ventilator 7.00 50 T-Piece 08/10/16 11:17 50 08/10/16 11:15 95 T-piece 7.00 50 08/10/16 10:00 90 08/10/16 08:40 99 40 08/10/16 08:00 40 08/10/16 08:00 97 08/10/16 08:00 99.4 97 17 171/79 100 08/10/16 06:00 91 08/10/16 04:46 96 40 08/10/16 04:00 98.8 101 19 136/62 98 08/10/16 04:00 101 08/10/16 04:00 40 08/10/16 02:00 94 08/10/16 02:00 98 40 08/10/16 00:00 91 08/10/16 00:00 99.0 91 17 132/80 99 08/10/16 00:00 40 08/09/16 22:00 92 08/09/16 21:35 96 40 08/09/16 20:00 88 08/09/16 20:00 98.9 88 23 162/77 99 08/09/16 20:00 40 08/09/16 18:00 90 08/09/16 16:23 95 40 08/09/16 16:00 80 08/09/16 16:00 40 08/09/16 16:00 98.4 80 22 167/75 96 -: 08/10/16 0342 08/10/16 0343 Physical Exam General Appearance: No Acute Distress, Anxious Eyes Eye Exam: Pupils Equal Throat Throat Exam: Oral Mucosa [place] & Moist Neck Neck Exam: Neck Supple Pulmonary Resp Exam: Rhonchi, Decreased Bases, Diminished Breath Sounds, Poor Inspiratory Effort Cardiology CV Exam: Regular, Normal Sinus Rhythm Gastrointestinal/Abdomen GI Exam: Soft, Non-Tender, Bowel Sounds Present Extremeties Extremities Exam: Trace Edema Neurologic Neuro Exam: Alert, Awake Psychiatric Psych Exam: Appropriate Responses Assessment/Plan Assessment Summary: ADALID/Acute Renal Failure Electrolyte Assessment: Metabolic Acidosis Problem List: (1) Diabetes mellitus with neuropathy (2) Leukocytosis (3) Peripheral vascular disease (4) Severe sepsis with acute organ dysfunction (5) History of DVT (deep vein thrombosis) (6) Hypoxia (7) Acidosis (8) Lactic acidosis Plan Patient has some improvement in the urine out put. BP is has improved off pressors. sputum c/s results noted Pseudomonas, seen by ID. On Levrashard, ID following. HD yesterday UF 3.5 L Blood flow low, Cathflo placed UOP 1.2 L [address] Magana to follow Problem Qualifiers (1) Diabetes mellitus with neuropathy: Qualified Code: E11.40 - Type 2 diabetes mellitus with diabetic neuropathy, unspecified alf insulin use status (2) Leukocytosis: Qualified Code: D72.829 - Leukocytosis, unspecified type Nano Faustin MD August 10, 2016 14:16
[2016-08-10] MEDS ORDERED: POTASSIUM CHLOR 10 MEQ PREMIX 100 ML IV ONE (14:30)
--- NOTE | 2016-08-10 18:14 | HHI.CCPN ---
Subjective Remarks/Hospital Course 71-year-old male. Date of admission 07/20/2016. Past records includes diabetes with neuropathy and nephropathy, hypertension, dyslipidemia, chronic pain syndrome, history of DVT/PE on chronic anticoagulation, peripheral vascular disease with history of AAA, and osteoporosis. Patient recently [place] 07/06/16. Patient sick contacts would include neighbor with "vital illness. Patient is to [facility] today with acute onset of diarrhea, hypoglycemia and chills. Upon arrival, patient was noted be acutely hypoxic and required a nonrebreather mask. Patient denies pleuritic chest pain , abdominal pain but positive for nausea and diarrhea. CT chest revealed bilateral lower lobe scarring, bilateral adrenal adenomas a nonspecific bowel gas pattern. Chest x-ray revealed no significant findings. Lab work included a lactic acid elevated 7.7, white blood cell count 12,000 in acute kidney injury with a creatinine of 3.0. Baseline around 1.5-2. Troponin was slightly elevated 0.14. EKG is currently pending. Upon arrival to [facility], patient was extremely mottled with rates in the 40s. Patient was emergently intubated please see note and a left IJ central line was placed. CT of the head, abdomen and pelvis currently pending. 07/21 Patient is sedated with Diprivan and Fentanyl and intubated. On Levophed 22 mics, Vasopressin and bicarb drip. BC from 07/20: GPC all 4 bottles. 07/22 Patient remains sedated and intubated On Levophed 22 mics, vasopressin and bicarb drip. Awaiting to start CVVHD today 07/23: Remains sedated, orally intubated on mech ventilation. On Levophed 15 mics per minute and low-dose vasopressin for pressor support. On CRRT. 07/24: Remains sedated, orally intubated on mechanical ventilation. On Levophed 7 mics per minute and low-dose vasopressin for pressor support. CRRT was stopped at 1:30 AM due to Air in system and has now been resumed. 2 Amps of bicarbonate given for metabolic acidosis while CRRT held and bicarbonate drip was started back yesterday 07/25: Remains critically ill, on CVVH. Levoped 6 mics per minute. White count has normalized, making slight amount of urine. Showing some signs of progress 07/26: Remains sedated, orally intubated on mechanical ventilation. Remains on Levophed 3 mics per minute, vasopressin 0.03 mics per minute. CRRT continues. 07/27: Remains sedated, orally intubated on mechanical ventilation. Remains on Levophed 2 mics per minute, vasopressin 0.03 mics per minute. On CRRT. 07/28: Remains sedated, orally intubated on mechanical ventilation. Off Levophed. Remains on vasopressin. CRRT clotted off this morning and is on hold currently. Nephrology to decide regarding regular hemodialysis as patient is now off Levophed. 07/29: Sedated, arousable, orally intubated on mechanical ventilation. Off Levophed and vasopressin drips. To be initiated on hemodialysis today. Tolerating tube feeds. 07/30: Sedated, arousable, orally intubated on mechanical ventilation. Hemoglobin dropped to 6.9 this morning no evidence of melena or rectal bleeding noted. Stat CT abdomen pelvis did not reveal any evidence of retroperitoneal hematoma. Patient is maintaining his blood pressure and has not had any hypotension. 2 units PRBCs ordered this morning. 07/31: Sedated, arousable, orally intubated on mechanical ventilation. Underwent hemodialysis this morning. 08/01: Arousable off sedation, weakly grasps on command and wiggles toes. Remains orally intubated on mechanical ventilation. Tolerating tube feeds. 08/02: Awake off sedation, orally intubated on mechanical ventilation. Tolerating tube feeds. Awaiting hemodialysis today. 08/03: Patient failed extubation on 08/02 and required reintubation due to inability to mobilize secretions and worsening hypoxia about 8 hours following extubation. Sedated, orally intubated on mechanical ventilation. Started on Mucomyst and percussion therapy to mobilize secretions. 08/04: Remains sedated, orally intubated on mechanical ventilation. Significant pulmonary secretions being suctioned out following initiation of Mucomyst and percussion therapy per overnight [employer]. Tolerating tube feeds. 08/05: Arousable off sedation, orally intubated on mechanical ventilation. Underwent hemodialysis today. Still has copious pulmonary secretions though these are being mobilized with Mucomyst and percussion therapy. Tolerating tube feeds. On C Pap trial to decide extubation. If he fails extubation or is unable to get extubated today will consider for tracheostomy tomorrow. 08/06: failing CPAP trials for tachypnea. 08/07: mental status improving. BP very well controlled off cardene. plan for trach today. 08/08: trach yesterday. now doing very well. on minimal PSV settings. plan for PEG on thursday. family at bedside and very happy with his improvements. patient smiled today for the first time in a few days. 08/09: tolerated 30 minutes of t-piece yesterday. rested on rate overnight. back on PSV this morning. interactive. doing well. denies complaints. plan for PEG thursday. 08/10: tolerated t-piece x 3 hours today. interactive and doing well in a chair today. still plans for PEG tomorrow. replaced NGT today, and patient has no gag or swallow strength at all per nursing. urinary retention and armstrong catheter replaced overnight. Objective Vital Signs Date Time Temp Pulse Resp B/P Pulse Ox O2 Delivery O2 Flow Rate FiO2 08/10/16 16:00 86 08/10/16 16:00 50 08/10/16 16:00 98.5 25 147/22 100 08/10/16 11:17 Mechanical Ventilator 7.00 T-Piece Intake and Output 08/09/16 08/09/16 08/10/16 08:00 16:00 00:00 Intake Total 367 ml 511 ml 477 ml Output Total 350 ml 3350 ml 425 ml Balance 17 ml -2839 ml 52 ml Result Diagram: 08/10/16 0342 08/10/16 0343 Imaging Last 48 hours Impressions Chest X-Ray 08/02/16 1421 Signed Impressions: Service Date/Time: Tuesday, August 02, 2016 14:42 - CONCLUSION: No significant interval change in bilateral pulmonary opacity. Castillo Roldan MD Last 48 hours Impressions Chest X-Ray 08/02/16 0600 Signed Impressions: Service Date/Time: Tuesday, August 02, 2016 05:47 - CONCLUSION: 1. Support apparatus in satisfactory position. Bilateral mostly basilar airspace disease and effusions similar to July 30. Jose Martin Valderrama MD Last 24 hours Impressions Chest X-Ray 07/28/16 0600 Signed Impressions: Service Date/Time: Thursday, July 28, 2016 03:09 - CONCLUSION: No significant change. Hazy opacity remains in both lungs most consistent with congestive heart failure. Alonzo Bradshaw MD Last 24 hours Impressions Chest X-Ray 07/26/16 0600 Signed Impressions: Service Date/Time: Tuesday, July 26, 2016 04:56 - CONCLUSION: No significant change. Jovan Aldridge MD Last 48 hours Impressions Abdomen X-Ray 07/24/16 0749 Signed Impressions: Service Date/Time: July 08:28 - CONCLUSION: Air-filled bowel loops centrally but no obstruction seen. Uli Atkins MD Chest X-Ray 07/24/16 0600 Signed Impressions: Service Date/Time: July 05:36 - CONCLUSION: Unchanged bibasilar infiltrates. Omer Cheng Jr., MD Last Impressions Chest X-Ray 07/21/16 0000 Signed Impressions: Service Date/Time: Thursday, July 21, 2016 22:13 - CONCLUSION: Satisfactory central line positioning. Worsening aeration. [place] Guillermo MD Renal Ultrasound 07/20/16 Signed Impressions: Service Date/Time: Wednesday, July 20, 2016 14:32 - CONCLUSION: 1. No acute findings. Renal ultrasound unremarkable. Bladder was not well-visualized. Jose Martin Valderrama MD Lower Extremity Ultrasound 07/20/16 Signed Impressions: Service Date/Time: Wednesday, July 20, 2016 14:39 - CONCLUSION: Negative exam with no evidence of deep venous thrombosis. Alonzo Bradshaw MD Head CT 07/20/16 Signed Impressions: Service Date/Time: Wednesday, July 20, 2016 18:21 - CONCLUSION: 1. No acute intracranial abnormalities. Mild mucosal thickening of the ethmoid air cells. Jose Martin Valderrama MD Chest CT 07/20/16 Signed Impressions: Service Date/Time: Wednesday, July 20, 2016 11:28 - CONCLUSION: 1. Chronic scarring in the lung bases left greater than right. 2. No focal consolidation. 3. Bilateral adrenal masses left greater than right most consistent with adenomas. 4. Nonspecific bowel gas pattern noted in the upper abdomen with air-fluid levels in the small bowel. Alonzo Bradshaw MD Abdomen/Pelvis CT 07/20/16 Signed Impressions: Service Date/Time: Wednesday, July 20, 2016 18:24 - CONCLUSION: 1. Lower abdominal ventral midline hernia containing loop of small bowel. Small bowel is mildly distended somewhat diffusely with fluid and air. Cannot exclude a low grade partial bowel obstruction in the area of herniation. 2. No abnormal fluid collections to suggest abscess. No free air or free fluid. 3. Basilar and dependent lung consolidation, left greater than right. Pneumonia could have this appearance. Small left effusion. 4. NG tip in stomach. Inferior vena cava filter present. Armstrong catheter in bladder. Jose Martin Valderrama MD Objective Remarks GENERAL: Patient is 71 yo elderly male, trached. sitting in stretcher chair, on t piece. SKIN: Warm and dry. HEAD: Normocephalic. EYES: Pallor present. No scleral icterus. No injection or drainage. NECK: trachea midline. No JVD , tracheostomy in place, minimal sanguinous drainage around trach. CARDIOVASCULAR: Regular rate and rhythm without murmurs, gallops, or rubs. RESPIRATORY: trached. unlabored. equal chest rise. GASTROINTESTINAL: Abdomen soft, non-tender, nondistended. Bowel sounds sluggish Neuro: Arousable off sedation, following commands. Moves both upper extremities weakly and wiggles toes bilaterally. Extremities: Warm bilaterally, Bilateral edema A/P Assessment and Plan Neuro/Psych: Peripheral neuropathy Chronic pain syndrome Goal RASS 0 melatonin QHS for sleep, zyprexa prn if not asleep by 2300. 07/20 CT brain: No acute intracranial abnormalities. CV: Elevated troponin Hypertension- improving. Dyslipidemia Lactic acidosis- resolved. Septic shock- resolved. Peripheral vascular disease History of AAA Off Stress dose steroids- Hydrocortisone decreased to 50mg daily on 07/29 and stopped on 07/31 Continue with ASA daily Echo showed EF 35-40% amlodipine 10mg po daily carvedilol 12.5mg po q12h hydralazine and labetalol prn. goal sbp < 160. Resp: Acute-->chronic hypoxemic respiratory failure Tobaccoism s/p trach 08/[address] Barrera/Dr. Upton PSV. I think tomorrow we can liberalize him to tpiece as tolerated, though with his PEG tube procedure, he may require more pulmonary rest. Ventilator bundle. nebs prn. CT chest 07/20 revealed left greater than right basilar scarring. Bilateral adrenal adenomas. No focal consolidation OOB to stretcher chair daily. GI: Tolerating tube feeds- Nepro with goal rate 40ml/hr. Reglan 5 mg IV every 8 hours Protonix for GI prophylaxis Colace/as needed Senokot for bowel regimen CT abdomen reviewed. Gen surgery- Dr Roman- no surgical interventions. GI consult for PEG placement. : Urinary Retention Strict intake output, monitor and replete electrolytes, follow BUN/creatinine. Started CRRT on 07/22, being followed by nephrology Dr. Magana. CRRT on hold since 07/28. Switched to hemodialysis on 07/29. plan for IHD tomorrow. Renal US: No acute findings --start Cardura 2mg po daily, in 48h, plan second trial of armstrong removal (08/12). Endo: Diabetes mellitus with nephropathy and neuropathy Bilateral adrenal adenoma Hyperglycemia Decreased Levemir to 10 units subcutaneously every 12 hourly on 07/31. On high dose sliding scale insulin on 07/29 for better glycemic control. Off steroids. 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 HIT screen negative. Platelets have normalized. Started heparin 5000 units subcutaneously every 12 hourly on 07/29, increased to 5000 units subcutaneously every 8 hourly on 07/31. Transfused 2 units PRBCs for drop in hemoglobin to 6.9 on 07/30. CT abdomen pelvis with no evidence of retroperitoneal hematoma. Most likely secondary to blood loss with CRRT regarding multiple times. Maintaining H&H. Advanced to full anticoagulation with heparin GTT on 08/01 ID: Strep Bacteremia Sepsis Pneumonia Continue with abx per ID - Unasyn switched to cefepime on 07/31 per ID due to pseudomonas in sputum. ID planning to initiate tobramycin nebulizer treatments. ID switched cefepime to Levaquin 08/08 Clindamycin stopped 07/29, vanco x 1 dose on admission. Pertinent cultures BC 07/20- GPC, Group A Beta strep Urine cx 07/20 : neg Strep pneumonia nad Legionella urinary Ag negative Follow up on Sputum cx, BC 07/21, 07/22- NGTD 07/30 Sputum c/s with pseudomonas MSK: Osteoarthritis Holding vitamin D 1000 units by mouth daily. Access - piv -Right IJ vascath placed 07/22 - I have consulted IR for tunnelled VasCath at their convenience. patient will need this prior to discharge home. Prophylaxis - GI - Protonix - DVT - SCD/heparin SQ. Heparin gtt 08/01 for full anticoagulation. - Doppler US LE negative for DVT Palliative care is following Vitor Barrera MD August 10, 2016 18:14
[2016-08-10] MEDS: DOXAZOSIN MESYLATE 2 MG TAB PO SCH (19:00)
[2016-08-10] MEDS: MELATONIN 5 MG TAB PO SCH (20:32)
[2016-08-11] VITALS (16 sets, daily range): BP systolic 131–181; BP diastolic 60–83; PULSE 76–96; RESP 18–30; TEMP 98.1–99.1; O2SAT 94–100
[2016-08-11] MEDS: HEPARIN-D5W INJ 250 ML IV SCH ×2 (00:18→15:02)
[2016-08-11] MEDS: LABETALOL HCL 100 MG/20 ML VIAL IV PRN ×3 (01:00→07:23)
[2016-08-11] MEDS: METOCLOPRAMIDE HCL 10 MG/2 ML VIAL IV PUSH SCH ×3 (01:00→17:36)
[2016-08-11] MEDS: CHLORHEXIDINE GLUCONATE 2 % 1 PACK (2 CLOTHS) TOP SCH (01:03)
[2016-08-11] MEDS: hydrALAZINE HCL 20 MG/ML VIAL IV PUSH PRN (02:50)
[2016-08-11 05:01] LABS: MEAN CELL VOLUME 90.3 FL (80.0-100.0); MEAN CORPUSCULAR HEMOGLOBIN 29.9 PG (27.0-34.0); MEAN CORPUSCULAR HGB CONC 33.2 % (32.0-36.0); PLATELET COUNT 246 TH/MM3 (150-450); RED BLOOD COUNT 2.65 MIL/MM3 (4.50-5.90); RED CELL DISTRIBUTION WIDTH 14.3 % (11.6-17.2); REVIEW FLAG FINAL; WHITE BLOOD COUNT 6.1 TH/MM3 (4.0-11.0)
[2016-08-11 05:31] LABS: APTT (PATIENT) 48.8 SEC (24.3-30.1)
[2016-08-11 05:34] LABS: BICARBONATE 30.6 MEQ/L (21.0-32.0); POTASSIUM 3.1 MEQ/L (3.5-5.1)
[2016-08-11] MEDS: INSULIN ASPART SUPPLEMENTAL SCALE SQ SCH ×4 (06:00→17:50)
[2016-08-11] MEDS: DOXAZOSIN MESYLATE 2 MG TAB PO SCH (09:00)
[2016-08-11] MEDS: SENNOSIDES SYRUP 8.8 MG/5 ML CUP OG-TUBE SCH (09:00)
[2016-08-11] MEDS: INSULIN DETEMIR 100 UNITS/ML VIAL SQ SCH ×3 (09:00→22:01)
[2016-08-11] MEDS: ASPIRIN 81 MG CHEW TAB CHEW SCH (09:03)
[2016-08-11] MEDS: CHLORHEXIDINE 0.12% (ORAL KIT) 15 ML CUP MT SCH ×2 (09:03→22:02)
[2016-08-11] MEDS: LEVOFLOXACIN 250 MG TAB PO SCH (09:04)
[2016-08-11] MEDS: CARVEDILOL 12.5 MG TAB PO SCH ×2 (09:04→22:02)
[2016-08-11] MEDS: DOCUSATE SODIUM 100 MG CAP PO SCH ×2 (09:05→22:02)
[2016-08-11] MEDS: LACTOBACILLUS ACIDOPHILUS TAB PO SCH ×3 (09:05→17:36)
[2016-08-11] MEDS: PANTOPRAZOLE SODIUM 40 MG VIAL IV SCH (09:06)
[2016-08-11] MEDS: SODIUM CHLORIDE 0.9% FLUSH 10 ML FLUSH IV FLUSH SCH ×2 (09:06→22:02)
[2016-08-11] MEDS: SODIUM CHLORIDE 0.9% FLUSH 10 ML FLUSH IVF SCH (09:07)
[2016-08-11] MEDS: RESP: ALBUTEROL 2.5 MG/3 ML NEB (PRN) INH (09:43)
[2016-08-11] MEDS: RESP: TOBRAMYCIN SULFATE 80 MG/2 ML NEB NEB SCH ×2 (09:43→23:27)
--- NOTE | 2016-08-11 11:17 | HHI.CCPN ---
Subjective Remarks/Hospital Course 71-year-old male. Date of admission 07/20/2016. Past records includes diabetes with neuropathy and nephropathy, hypertension, dyslipidemia, chronic pain syndrome, history of DVT/PE on chronic anticoagulation, peripheral vascular disease with history of AAA, and osteoporosis. Patient recently C [place] 07/06/16. Patient sick contacts would include neighbor with "vital illness. Patient is to [facility] today with acute onset of diarrhea, hypoglycemia and chills. Upon arrival, patient was noted be acutely hypoxic and required a nonrebreather mask. Patient denies pleuritic chest pain , abdominal pain but positive for nausea and diarrhea. CT chest revealed bilateral lower lobe scarring, bilateral adrenal adenomas a nonspecific bowel gas pattern. Chest x-ray revealed no significant findings. Lab work included a lactic acid elevated 7.7, white blood cell count 12,000 in acute kidney injury with a creatinine of 3.0. Baseline around 1.5-2. Troponin was slightly elevated 0.14. EKG is currently pending. Upon arrival to [facility], patient was extremely mottled with rates in the 40s. Patient was emergently intubated please see note and a left IJ central line was placed. CT of the head, abdomen and pelvis currently pending. 07/21 Patient is sedated with Diprivan and Fentanyl and intubated. On Levophed 22 mics, Vasopressin and bicarb drip. BC from 07/20: GPC all 4 bottles. 07/22 Patient remains sedated and intubated On Levophed 22 mics, vasopressin and bicarb drip. Awaiting to start CVVHD today 07/23: Remains sedated, orally intubated on mech ventilation. On Levophed 15 mics per minute and low-dose vasopressin for pressor support. On CRRT. 07/24: Remains sedated, orally intubated on mechanical ventilation. On Levophed 7 mics per minute and low-dose vasopressin for pressor support. CRRT was stopped at 1:30 AM due to Air in system and has now been resumed. 2 Amps of bicarbonate given for metabolic acidosis while CRRT held and bicarbonate drip was started back yesterday 07/25: Remains critically ill, on CVVH. Levoped 6 mics per minute. White count has normalized, making slight amount of urine. Showing some signs of progress 07/26: Remains sedated, orally intubated on mechanical ventilation. Remains on Levophed 3 mics per minute, vasopressin 0.03 mics per minute. CRRT continues. 07/27: Remains sedated, orally intubated on mechanical ventilation. Remains on Levophed 2 mics per minute, vasopressin 0.03 mics per minute. On CRRT. 07/28: Remains sedated, orally intubated on mechanical ventilation. Off Levophed. Remains on vasopressin. CRRT clotted off this morning and is on hold currently. Nephrology to decide regarding regular hemodialysis as patient is now off Levophed. 07/29: Sedated, arousable, orally intubated on mechanical ventilation. Off Levophed and vasopressin drips. To be initiated on hemodialysis today. Tolerating tube feeds. 07/30: Sedated, arousable, orally intubated on mechanical ventilation. Hemoglobin dropped to 6.9 this morning no evidence of melena or rectal bleeding noted. Stat CT abdomen pelvis did not reveal any evidence of retroperitoneal hematoma. Patient is maintaining his blood pressure and has not had any hypotension. 2 units PRBCs ordered this morning. 07/31: Sedated, arousable, orally intubated on mechanical ventilation. Underwent hemodialysis this morning. 08/01: Arousable off sedation, weakly grasps on command and wiggles toes. Remains orally intubated on mechanical ventilation. Tolerating tube feeds. 08/02: Awake off sedation, orally intubated on mechanical ventilation. Tolerating tube feeds. Awaiting hemodialysis today. 08/03: Patient failed extubation on 08/02 and required reintubation due to inability to mobilize secretions and worsening hypoxia about 8 hours following extubation. Sedated, orally intubated on mechanical ventilation. Started on Mucomyst and percussion therapy to mobilize secretions. 08/04: Remains sedated, orally intubated on mechanical ventilation. Significant pulmonary secretions being suctioned out following initiation of Mucomyst and percussion therapy per overnight NUCLEAR PHARMACIST. Tolerating tube feeds. 08/05: Arousable off sedation, orally intubated on mechanical ventilation. Underwent hemodialysis today. Still has copious pulmonary secretions though these are being mobilized with Mucomyst and percussion therapy. Tolerating tube feeds. On C Pap trial to decide extubation. If he fails extubation or is unable to get extubated today will consider for tracheostomy tomorrow. 08/06: failing CPAP trials for tachypnea. 08/07: mental status improving. BP very well controlled off cardene. plan for trach today. 08/08: trach yesterday. now doing very well. on minimal PSV settings. plan for PEG on thursday. family at bedside and very happy with his improvements. patient smiled today for the first time in a few days. 08/09: tolerated 30 minutes of t-piece yesterday. rested on rate overnight. back on PSV this morning. interactive. doing well. denies complaints. plan for PEG thursday. 08/10: tolerated t-piece x 3 hours today. interactive and doing well in a chair today. still plans for PEG tomorrow. replaced NGT today, and patient has no gag or swallow strength at all per nursing. urinary retention and armstrong catheter replaced overnight. 08/11: continues to improve from a pulmonary standpoint. plan is for PEG today or tomorrow. working on placement. Objective Vital Signs Date Time Temp Pulse Resp B/P Pulse Ox O2 Delivery O2 Flow Rate FiO2 08/11/16 10:00 86 08/11/16 09:47 99 40 08/11/16 08:00 98.9 30 181/81 08/10/16 11:17 Mechanical Ventilator 7.00 T-Piece Intake and Output 08/10/16 08/10/16 08/10/16 07:59 15:59 23:59 Intake Total 430 ml 548 ml 560 ml Output Total 475 ml 375 ml 200 ml Balance -45 ml 173 ml 360 ml Result Diagram: 08/11/16 0420 08/11/16 0420 Imaging Last 48 hours Impressions Chest X-Ray 08/02/16 1421 Signed Impressions: Service Date/Time: Tuesday, August 02, 2016 14:42 - CONCLUSION: No significant interval change in bilateral pulmonary opacity. Castillo Roldan MD Last 48 hours Impressions Chest X-Ray 08/02/16 0600 Signed Impressions: Service Date/Time: Tuesday, August 02, 2016 05:47 - CONCLUSION: 1. Support apparatus in satisfactory position. Bilateral mostly basilar airspace disease and effusions similar to July 30. Jose Martin Valderrama MD Last 24 hours Impressions Chest X-Ray 07/28/16 0600 Signed Impressions: Service Date/Time: Thursday, July 28, 2016 03:09 - CONCLUSION: No significant change. Hazy opacity remains in both lungs most consistent with congestive heart failure. Alonzo Bradshaw MD Last 24 hours Impressions Chest X-Ray 07/26/16 0600 Signed Impressions: Service Date/Time: Tuesday, July 26, 2016 04:56 - CONCLUSION: No significant change. Jovan Aldridge MD Last 48 hours Impressions Abdomen X-Ray 07/24/16 0749 Signed Impressions: Service Date/Time: July 08:28 - CONCLUSION: Air-filled bowel loops centrally but no obstruction seen. Uli Atkins MD Chest X-Ray 07/24/16 0600 Signed Impressions: Service Date/Time: July 05:36 - CONCLUSION: Unchanged bibasilar infiltrates. Omer Cheng Jr., MD Last Impressions Chest X-Ray 07/21/16 0000 Signed Impressions: Service Date/Time: Thursday, July 21, 2016 22:13 - CONCLUSION: Satisfactory central line positioning. Worsening aeration. Berlin Guillermo MD Renal Ultrasound 07/20/16 Signed Impressions: Service Date/Time: Wednesday, July 20, 2016 14:32 - CONCLUSION: 1. No acute findings. Renal ultrasound unremarkable. Bladder was not well-visualized. Jose Martin Valderrama MD Lower Extremity Ultrasound 07/20/16 Signed Impressions: Service Date/Time: Wednesday, July 20, 2016 14:39 - CONCLUSION: Negative exam with no evidence of deep venous thrombosis. Alonzo Bradshaw MD Head CT 07/20/16 Signed Impressions: Service Date/Time: Wednesday, July 20, 2016 18:21 - CONCLUSION: 1. No acute intracranial abnormalities. Mild mucosal thickening of the ethmoid air cells. Jose Martin Valderrama MD Chest CT 07/20/16 Signed Impressions: Service Date/Time: Wednesday, July 20, 2016 11:28 - CONCLUSION: 1. Chronic scarring in the lung bases left greater than right. 2. No focal consolidation. 3. Bilateral adrenal masses left greater than right most consistent with adenomas. 4. Nonspecific bowel gas pattern noted in the upper abdomen with air-fluid levels in the small bowel. Alonzo Bradshaw MD Abdomen/Pelvis CT 07/20/16 Signed Impressions: Service Date/Time: Wednesday, July 20, 2016 18:24 - CONCLUSION: 1. Lower abdominal ventral midline hernia containing loop of small bowel. Small bowel is mildly distended somewhat diffusely with fluid and air. Cannot exclude a low grade partial bowel obstruction in the area of herniation. 2. No abnormal fluid collections to suggest abscess. No free air or free fluid. 3. Basilar and dependent lung consolidation, left greater than right. Pneumonia could have this appearance. Small left effusion. 4. NG tip in stomach. Inferior vena cava filter present. Armstrong catheter in bladder. Jose Martin Valderrama MD Objective Remarks GENERAL: Patient is 71 yo elderly male, trached. sitting in bed, on psv today. SKIN: Warm and dry. HEAD: Normocephalic. EYES: Pallor present. No scleral icterus. No injection or drainage. NECK: trachea midline. No JVD , tracheostomy in place, minimal sanguinous drainage around trach. CARDIOVASCULAR: Regular rate and rhythm without murmurs, gallops, or rubs. RESPIRATORY: trached. unlabored. equal chest rise. GASTROINTESTINAL: Abdomen soft, non-tender, nondistended. Bowel sounds sluggish Neuro: Arousable off sedation, following commands. Moves both upper extremities weakly and wiggles toes bilaterally. Extremities: Warm bilaterally, Bilateral edema A/P Assessment and Plan Neuro/Psych: Peripheral neuropathy Chronic pain syndrome Goal RASS 0 melatonin QHS for sleep, zyprexa prn if not asleep by 2300. 07/20 CT brain: No acute intracranial abnormalities. CV: Elevated troponin- resolved. Hypertension- resolved. Dyslipidemia Lactic acidosis- resolved. Septic shock- resolved. Peripheral vascular disease History of AAA Off Stress dose steroids- Hydrocortisone decreased to 50mg daily on 07/29 and stopped on 07/31 Continue with ASA daily Echo showed EF 35-40% amlodipine 10mg po daily carvedilol 12.5mg po q12h hydralazine and labetalol prn. goal sbp < 160. Resp: Acute-->chronic hypoxemic respiratory failure Tobaccoism s/p trach 08/[address] Barrera/Dr. Upton PSV. I think today we can liberalize him to tpiece as tolerated Ventilator bundle. nebs prn. CT chest 07/20 revealed left greater than right basilar scarring. Bilateral adrenal adenomas. No focal consolidation OOB to stretcher chair daily. GI: Acute protein calorie malnutrition - moderate Tolerating tube feeds- Nepro with goal rate 40ml/hr. Reglan 5 mg IV every 8 hours Protonix for GI prophylaxis Colace/as needed Senokot for bowel regimen CT abdomen reviewed. Gen surgery- Dr Roman- no surgical interventions. GI consult for PEG placement, today or tomorrow. : Urinary Retention Strict intake output, monitor and replete electrolytes, follow BUN/creatinine. Started CRRT on 07/22, being followed by nephrology Dr. Magana. CRRT on hold since 07/28. Switched to hemodialysis on 07/29. Renal US: No acute findings --Cardura 2mg po daily, in 48h, plan second trial of armstrong removal (08/12). Endo: Diabetes mellitus with nephropathy and neuropathy Bilateral adrenal adenoma Hyperglycemia Decreased Levemir to 10 units subcutaneously every 12 hourly on 07/31. On high dose sliding scale insulin on 07/29 for better glycemic control. Off steroids. Heme: Leukocytosis- resolved. Thrombocytopenia- resolved. 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 HIT screen negative. Platelets have normalized. Started heparin 5000 units subcutaneously every 12 hourly on 07/29, increased to 5000 units subcutaneously every 8 hourly on 07/31. Transfused 2 units PRBCs for drop in hemoglobin to 6.9 on 07/30. CT abdomen pelvis with no evidence of retroperitoneal hematoma. Most likely secondary to blood loss with CRRT regarding multiple times. Maintaining H&H. Advanced to full anticoagulation with heparin GTT on 08/01, will plan to transition this to Lovenox after PEG placement. ID: Strep Bacteremia Pneumonia- pseudomonas Continue with abx per ID - Unasyn switched to cefepime on 07/31 per ID due to pseudomonas in sputum. ID planning to initiate tobramycin nebulizer treatments. ID switched cefepime to Levaquin 08/08 Clindamycin stopped 07/29, vanco x 1 dose on admission. Pertinent cultures BC 07/20- GPC, Group A Beta strep Urine cx 07/20 : neg Strep pneumonia nad Legionella urinary Ag negative Follow up on Sputum cx, BC 07/21, 07/22- NGTD 07/30 Sputum c/s with pseudomonas 08/03 sputum with pseudomonas MSK: Osteoarthritis Holding vitamin D 1000 units by mouth daily. Access - piv -Right IJ vascath placed 07/22 - I have consulted IR for tunnelled VasCath at their convenience. patient will need this prior to discharge. Prophylaxis - GI - Protonix - DVT - SCD/heparin SQ. Heparin gtt 08/01 for full anticoagulation. - Doppler US LE negative for DVT Palliative care is following Vitor Barrera MD August 11, 2016 11:17
--- NOTE | 2016-08-11 11:34 | HHI.NPPN ---
Subjective History of Present Illness 71-year-old male with past medical history of diabetes mellitus, hypertension, ischemic heart disease, peripheral neuropathy, chronic kidney disease, history of deep vein thrombosis, hyperlipidemia was brought to the hospital because of generalized weakness, confusion and vomiting and diarrhea. I was called to see the patient because of elevated BUN and creatinine. The patient has history of acute kidney injury in the past and chronic kidney disease. His creatinine was around 1.2 to 1.4, this was in 2012. Additional Remarks Patient is alert, now with Trach. and T-Piece. Review of Systems General Constitutional: Fatigue Respiratory Lungs: SOB, Cough, Sputum, Wheeze Objective Data Data 08/10/16 08/11/16 19:00 07:00 Intake Total 548 ml 1012 ml Output Total 375 ml 500 ml Balance 173 ml 512 ml Intake IV Total 148 ml 424 ml Tube Feeding 280 ml 528 ml Other 120 ml 60 ml Output Urine Total 375 ml 500 ml # Bowel Movements 1 Vital Signs Date Time Temp Pulse Resp B/P Pulse Ox O2 Delivery O2 Flow Rate FiO2 08/11/16 10:00 86 08/11/16 09:47 99 40 08/11/16 08:00 50 08/11/16 08:00 96 08/11/16 08:00 98.9 96 30 181/81 98 08/11/16 06:00 82 08/11/16 04:00 76 08/11/16 04:00 98.1 90 18 168/81 100 08/11/16 04:00 50 08/11/16 03:57 98 40 08/11/16 02:00 89 08/11/16 01:13 98 40 08/11/16 00:00 98.8 89 24 159/67 100 08/11/16 00:00 89 08/11/16 00:00 50 08/10/16 22:00 86 08/10/16 20:40 100 40 08/10/16 20:00 86 08/10/16 20:00 98.1 86 21 138/65 100 08/10/16 20:00 50 08/10/16 18:00 93 08/10/16 16:00 86 08/10/16 16:00 50 08/10/16 16:00 98.5 92 25 147/22 100 08/10/16 14:00 93 08/10/16 12:00 50 08/10/16 12:00 86 08/10/16 12:00 98.7 92 22 138/65 94 -: 08/11/16 0420 08/11/16 0420 Physical Exam General Appearance: No Acute Distress, Anxious Eyes Eye Exam: Pupils Equal Throat Throat Exam: Oral Mucosa [place] & Moist Neck Neck Exam: Neck Supple Pulmonary Resp Exam: Rhonchi, Decreased Bases, Diminished Breath Sounds, Poor Inspiratory Effort Cardiology CV Exam: Regular, Normal Sinus Rhythm Gastrointestinal/Abdomen GI Exam: Soft, Non-Tender, Bowel Sounds Present Extremeties Extremities Exam: Trace Edema Neurologic Neuro Exam: Alert, Awake Psychiatric Psych Exam: Appropriate Responses Assessment/Plan Assessment Summary: ADALID/Acute Renal Failure Electrolyte Assessment: Metabolic Acidosis Problem List: (1) Diabetes mellitus with neuropathy (2) Leukocytosis (3) Peripheral vascular disease (4) Severe sepsis with acute organ dysfunction (5) History of DVT (deep vein thrombosis) (6) Hypoxia (7) Acidosis (8) Lactic acidosis Plan Patient has some improvement in the urine out put. BP is elevated, on Amlodipine and Doxazosin. sputum c/s results noted Pseudomonas, seen by ID. On Levaquin, ID following. Urine out put is improving. Last HD was on Sat. possible HD in AM. Awaiting placement in the Rehab. Problem Qualifiers (1) Diabetes mellitus with neuropathy: Qualified Code: E11.40 - Type 2 diabetes mellitus with diabetic neuropathy, unspecified continuous churn buttermaker insulin use status (2) Leukocytosis: Qualified Code: D72.829 - Leukocytosis, unspecified type Frank Magana MD August 11, 2016 11:34
--- NOTE | 2016-08-11 12:10 | HHI.GIFU ---
Subjective Remarks Same general condition and tolerating TF well Objective Vitals I&O Vital Signs Date Time Temp Pulse Resp B/P Pulse Ox O2 Delivery O2 Flow Rate FiO2 08/11/16 10:00 86 08/11/16 09:47 99 40 08/11/16 08:00 50 08/11/16 08:00 96 08/11/16 08:00 98.9 96 30 181/81 98 08/11/16 06:00 82 08/11/16 04:00 76 08/11/16 04:00 98.1 90 18 168/81 100 08/11/16 04:00 50 08/11/16 03:57 98 40 08/11/16 02:00 89 08/11/16 01:13 98 40 08/11/16 00:00 98.8 89 24 159/67 100 08/11/16 00:00 89 08/11/16 00:00 50 08/10/16 22:00 86 08/10/16 20:40 100 40 08/10/16 20:00 86 08/10/16 20:00 98.1 86 21 138/65 100 08/10/16 20:00 50 08/10/16 18:00 93 08/10/16 16:00 86 08/10/16 16:00 50 08/10/16 16:00 98.5 92 25 147/22 100 08/10/16 14:00 93 I/O 08/10/16 08/10/16 08/10/16 08/11/16 08/11/16 08/11/16 07:00 15:00 23:00 07:00 15:00 23:00 Intake Total 430 ml 548 ml 560 ml 452 ml Output Total 475 ml 375 ml 200 ml 300 ml Balance -45 ml 173 ml 360 ml 152 ml Intake IV Total 164 ml 148 ml 240 ml 184 ml Tube Feeding 206 ml 280 ml 260 ml 268 ml Other 60 ml 120 ml 60 ml Output Urine Total 475 ml 375 ml 200 ml 300 ml # Bowel Movements 2 1 Laboratory Laboratory Tests Test 08/11/16 04:20 White Blood Count 6.1 Red Blood Count 2.65 Hemoglobin 7.9 Hematocrit 24.0 Mean Corpuscular Volume 90.3 Mean Corpuscular Hemoglobin 29.9 Mean Corpuscular Hemoglobin 33.2 Concent Red Cell Distribution Width 14.3 Platelet Count 246 Mean Platelet Volume 9.0 Activated Partial 48.8 Thromboplast Time Sodium Level 139 Potassium Level 3.1 Chloride Level 99 Carbon Dioxide Level 30.6 Anion Gap 9 Blood Urea Nitrogen 57 Creatinine 4.89 Estimat Glomerular Filtration 12 Rate Random Glucose 153 Calcium Level 8.1 Physical Exam HEENT: NG tube NECK: Trach in place CHEST: Chest is clear to auscultation and percussion. CARDIAC: Regular rate and rhythm with no murmur gallop or rubs. ABDOMEN: Soft, nondistended, nontender; no hepatosplenomegaly; bowel sounds are present in all four quadrants. EXTREMITIES: No clubbing, cyanosis, or edema. Assessment and Plan Plan - Dysphagia/ENF- need for halfway feeding - Diabetes with neuropathy and nephropathy, hypertension, dyslipidemia, chronic pain syndrome, history of DVT/PE on chronic anticoagulation, peripheral vascular disease with history of AAA, and osteoporosis who is here for evaluation of acute diarrhea, chills and hypoglycemia and found to be septic with strep bacteremia, pneumonia and developed acute hypoxemic respiratory failure. He was intubated and failed C-pap trials, he is s/p trach. . Plan: - EGD/PEG on tomorrow - Consents obtained for EGD/PEG, by bed side, risk, benefits and alternatives discussed and she is agreeing - Supportive care - Hold Heparin for 6 hours prior to procedure. Julienne Carrasco MD August 11, 2016 12:10
--- NOTE | 2016-08-11 15:48 | HHI.HCPN ---
Met with at patient's bedside. Mr. Lemus currently sleeping. Does not wake to verbal stimuli. Appears comfortable, no signs of distress. reports he is getting "much needed rest". She reports her only concern is Mr. Lemus getting out of the hospital, transition to [facility], and wants to ensure he is medically ready when he leaves. Explained discharge would take place when medical team and attending feel he is medically ready. She denies any further questions or concerns. Provided palliative care and older adult social work specialist contact information. Will continue to follow as needed. Lexi Cheng, CONTRACTS DIRECTOR August 11, 2016 15:48
[2016-08-11] MEDS: MELATONIN 5 MG TAB PO SCH (22:02)
[2016-08-12] VITALS (14 sets, daily range): BP systolic 127–163; BP diastolic 61–74; PULSE 80–95; RESP 16–26; TEMP 97.8–98.9; O2SAT 93–100
[2016-08-12] MEDS: METOCLOPRAMIDE HCL 10 MG/2 ML VIAL IV PUSH SCH ×3 (01:39→17:00)
[2016-08-12] MEDS: CHLORHEXIDINE GLUCONATE 2 % 1 PACK (2 CLOTHS) TOP SCH (04:00)
[2016-08-12] MEDS: HEPARIN-D5W INJ 250 ML IV SCH (04:06)
[2016-08-12 04:47] LABS: APTT (PATIENT) 56.2 SEC (24.3-30.1); HEMATOCRIT 25.4 % (39.0-51.0); MEAN CELL VOLUME 90.6 FL (80.0-100.0); MEAN CORPUSCULAR HEMOGLOBIN 29.5 PG (27.0-34.0); MEAN CORPUSCULAR HGB CONC 32.6 % (32.0-36.0); PLATELET COUNT 272 TH/MM3 (150-450); RED CELL DISTRIBUTION WIDTH 14.1 % (11.6-17.2); REVIEW FLAG FINAL; WHITE BLOOD COUNT 5.9 TH/MM3 (4.0-11.0)
[2016-08-12 04:52] LABS: BICARBONATE 28.7 MEQ/L (21.0-32.0); POTASSIUM 3.1 MEQ/L (3.5-5.1)
[2016-08-12] MEDS: INSULIN ASPART SUPPLEMENTAL SCALE SQ SCH ×4 (06:00→18:00)
[2016-08-12] MEDS: CHLORHEXIDINE 0.12% (ORAL KIT) 15 ML CUP MT SCH ×2 (08:20→23:00)
[2016-08-12] MEDS: ASPIRIN 81 MG CHEW TAB CHEW SCH (08:21)
[2016-08-12] MEDS: CARVEDILOL 12.5 MG TAB PO SCH ×2 (08:21→20:20)
[2016-08-12] MEDS: DOXAZOSIN MESYLATE 2 MG TAB PO SCH (08:21)
[2016-08-12] MEDS: LEVOFLOXACIN 250 MG TAB PO SCH (08:21)
[2016-08-12] MEDS: SODIUM CHLORIDE 0.9% FLUSH 10 ML FLUSH IVF SCH (08:21)
[2016-08-12] MEDS: PANTOPRAZOLE SODIUM 40 MG VIAL IV SCH (08:21)
[2016-08-12] MEDS: LACTOBACILLUS ACIDOPHILUS TAB PO SCH ×3 (08:21→18:00)
[2016-08-12] MEDS: SODIUM CHLORIDE 0.9% FLUSH 10 ML FLUSH IV FLUSH SCH ×2 (08:21→20:20)
[2016-08-12] MEDS: DOCUSATE SODIUM 100 MG CAP PO SCH ×2 (08:22→20:20)
[2016-08-12] MEDS: INSULIN DETEMIR 100 UNITS/ML VIAL SQ SCH ×2 (08:22→21:00)
[2016-08-12] MEDS: SENNOSIDES SYRUP 8.8 MG/5 ML CUP OG-TUBE SCH (08:22)
[2016-08-12] MEDS: RESP: TOBRAMYCIN SULFATE 80 MG/2 ML NEB NEB SCH ×2 (09:12→20:17)
[2016-08-12] MEDS: RESP: ALBUTEROL 2.5 MG/3 ML NEB (PRN) INH ×2 (09:12→19:32)
[2016-08-12] MEDS: GENTAMICIN SULFATE (DIALYSIS USE ONLY) 20 MG/2 ML VIAL OTHER PRN (11:38)
[2016-08-12] MEDS: HEPARIN SODIUM - IV 10,000 UNITS/10 ML VIAL OTHER PRN (11:38)
--- NOTE | 2016-08-12 12:14 | HHI.CCPN ---
Subjective Remarks/Hospital Course 71-year-old male. Date of admission 07/20/2016. Past records includes diabetes with neuropathy and nephropathy, hypertension, dyslipidemia, chronic pain syndrome, history of DVT/PE on chronic anticoagulation, peripheral vascular disease with history of AAA, and osteoporosis. Patient recently C [place] 07/06/16. Patient sick contacts would include neighbor with "vital illness. Patient is to [facility] today with acute onset of diarrhea, hypoglycemia and chills. Upon arrival, patient was noted be acutely hypoxic and required a nonrebreather mask. Patient denies pleuritic chest pain , abdominal pain but positive for nausea and diarrhea. CT chest revealed bilateral lower lobe scarring, bilateral adrenal adenomas a nonspecific bowel gas pattern. Chest x-ray revealed no significant findings. Lab work included a lactic acid elevated 7.7, white blood cell count 12,000 in acute kidney injury with a creatinine of 3.0. Baseline around 1.5-2. Troponin was slightly elevated 0.14. EKG is currently pending. Upon arrival to [facility], patient was extremely mottled with rates in the 40s. Patient was emergently intubated please see note and a left IJ central line was placed. CT of the head, abdomen and pelvis currently pending. 07/21 Patient is sedated with Diprivan and Fentanyl and intubated. On Levophed 22 mics, Vasopressin and bicarb drip. BC from 07/20: GPC all 4 bottles. 07/22 Patient remains sedated and intubated On Levophed 22 mics, vasopressin and bicarb drip. Awaiting to start CVVHD today 07/23: Remains sedated, orally intubated on mech ventilation. On Levophed 15 mics per minute and low-dose vasopressin for pressor support. On CRRT. 07/24: Remains sedated, orally intubated on mechanical ventilation. On Levophed 7 mics per minute and low-dose vasopressin for pressor support. CRRT was stopped at 1:30 AM due to Air in system and has now been resumed. 2 Amps of bicarbonate given for metabolic acidosis while CRRT held and bicarbonate drip was started back yesterday 07/25: Remains critically ill, on CVVH. Levoped 6 mics per minute. White count has normalized, making slight amount of urine. Showing some signs of progress 07/26: Remains sedated, orally intubated on mechanical ventilation. Remains on Levophed 3 mics per minute, vasopressin 0.03 mics per minute. CRRT continues. 07/27: Remains sedated, orally intubated on mechanical ventilation. Remains on Levophed 2 mics per minute, vasopressin 0.03 mics per minute. On CRRT. 07/28: Remains sedated, orally intubated on mechanical ventilation. Off Levophed. Remains on vasopressin. CRRT clotted off this morning and is on hold currently. Nephrology to decide regarding regular hemodialysis as patient is now off Levophed. 07/29: Sedated, arousable, orally intubated on mechanical ventilation. Off Levophed and vasopressin drips. To be initiated on hemodialysis today. Tolerating tube feeds. 07/30: Sedated, arousable, orally intubated on mechanical ventilation. Hemoglobin dropped to 6.9 this morning no evidence of melena or rectal bleeding noted. Stat CT abdomen pelvis did not reveal any evidence of retroperitoneal hematoma. Patient is maintaining his blood pressure and has not had any hypotension. 2 units PRBCs ordered this morning. 07/31: Sedated, arousable, orally intubated on mechanical ventilation. Underwent hemodialysis this morning. 08/01: Arousable off sedation, weakly grasps on command and wiggles toes. Remains orally intubated on mechanical ventilation. Tolerating tube feeds. 08/02: Awake off sedation, orally intubated on mechanical ventilation. Tolerating tube feeds. Awaiting hemodialysis today. 08/03: Patient failed extubation on 08/02 and required reintubation due to inability to mobilize secretions and worsening hypoxia about 8 hours following extubation. Sedated, orally intubated on mechanical ventilation. Started on Mucomyst and percussion therapy to mobilize secretions. 08/04: Remains sedated, orally intubated on mechanical ventilation. Significant pulmonary secretions being suctioned out following initiation of Mucomyst and percussion therapy per overnight ALARM SERVICE TECHNICIAN. Tolerating tube feeds. 08/05: Arousable off sedation, orally intubated on mechanical ventilation. Underwent hemodialysis today. Still has copious pulmonary secretions though these are being mobilized with Mucomyst and percussion therapy. Tolerating tube feeds. On C Pap trial to decide extubation. If he fails extubation or is unable to get extubated today will consider for tracheostomy tomorrow. 08/06: failing CPAP trials for tachypnea. 08/07: mental status improving. BP very well controlled off cardene. plan for trach today. 08/08: trach yesterday. now doing very well. on minimal PSV settings. plan for PEG on thursday. family at bedside and very happy with his improvements. patient smiled today for the first time in a few days. 08/09: tolerated 30 minutes of t-piece yesterday. rested on rate overnight. back on PSV this morning. interactive. doing well. denies complaints. plan for PEG thursday. 08/10: tolerated t-piece x 3 hours today. interactive and doing well in a chair today. still plans for PEG tomorrow. replaced NGT today, and patient has no gag or swallow strength at all per nursing. urinary retention and armstrong catheter replaced overnight. 08/11: continues to improve from a pulmonary standpoint. plan is for PEG today or tomorrow. working on placement. 08/12: doing well. PEG planned for noon. LTAC placement authorization in progress. from my standpoint, after PEG, stable for transfer to LTAC. Objective Vital Signs Date Time Temp Pulse Resp B/P Pulse Ox O2 Delivery O2 Flow Rate FiO2 08/12/16 10:00 80 08/12/16 09:12 94 T-piece 6.00 40 08/12/16 08:00 98.9 16 155/72 Intake and Output 08/11/16 08/11/16 08/12/16 08:00 16:00 00:00 Intake Total 452 ml 438 ml 465 ml Output Total 300 ml 325 ml 250 ml Balance 152 ml 113 ml 215 ml Result Diagram: 08/12/16 0346 08/12/16 0346 Imaging Last 48 hours Impressions Chest X-Ray 08/02/16 1421 Signed Impressions: Service Date/Time: Tuesday, August 02, 2016 14:42 - CONCLUSION: No significant interval change in bilateral pulmonary opacity. Castillo Roldan MD Last 48 hours Impressions Chest X-Ray 08/02/16 0600 Signed Impressions: Service Date/Time: Tuesday, August 02, 2016 05:47 - CONCLUSION: 1. Support apparatus in satisfactory position. Bilateral mostly basilar airspace disease and effusions similar to July 30. Jose Martin Valderrama MD Last 24 hours Impressions Chest X-Ray 07/28/16 0600 Signed Impressions: Service Date/Time: Thursday, July 28, 2016 03:09 - CONCLUSION: No significant change. Hazy opacity remains in both lungs most consistent with congestive heart failure. Alonzo Bradshaw MD Last 24 hours Impressions Chest X-Ray 07/26/16 0600 Signed Impressions: Service Date/Time: Tuesday, July 26, 2016 04:56 - CONCLUSION: No significant change. Jovan Aldridge MD Last 48 hours Impressions Abdomen X-Ray 07/24/16 0749 Signed Impressions: Service Date/Time: July 08:28 - CONCLUSION: Air-filled bowel loops centrally but no obstruction seen. Uli Atkins MD Chest X-Ray 07/24/16599 Signed Impressions: Service Date/Time: July 05:36 - CONCLUSION: Unchanged bibasilar infiltrates. Omer Cheng Jr., MD Last Impressions Chest X-Ray 07/21/16 0000 Signed Impressions: Service Date/Time: Thursday, July 21, 2016 22:13 - CONCLUSION: Satisfactory central line positioning. Worsening aeration. Berlin Guillermo MD Renal Ultrasound 07/20/16 Signed Impressions: Service Date/Time: Wednesday, July 20, 2016 14:32 - CONCLUSION: 1. No acute findings. Renal ultrasound unremarkable. Bladder was not well-visualized. Jose Martin Valderrama MD Lower Extremity Ultrasound 07/20/16 Signed Impressions: Service Date/Time: Wednesday, July 20, 2016 14:39 - CONCLUSION: Negative exam with no evidence of deep venous thrombosis. Alonzo Bradshaw MD Head CT 07/20/16 Signed Impressions: Service Date/Time: Wednesday, July 20, 2016 18:21 - CONCLUSION: 1. No acute intracranial abnormalities. Mild mucosal thickening of the ethmoid air cells. Jose Martin Valderrama MD Chest CT 07/20/16 Signed Impressions: Service Date/Time: Wednesday, July 20, 2016 11:28 - CONCLUSION: 1. Chronic scarring in the lung bases left greater than right. 2. No focal consolidation. 3. Bilateral adrenal masses left greater than right most consistent with adenomas. 4. Nonspecific bowel gas pattern noted in the upper abdomen with air-fluid levels in the small bowel. Alonzo Bradshaw MD Abdomen/Pelvis CT 07/20/16 0000 Signed Impressions: Service Date/Time: Wednesday, July 20, 2016 18:24 - CONCLUSION: 1. Lower abdominal ventral midline hernia containing loop of small bowel. Small bowel is mildly distended somewhat diffusely with fluid and air. Cannot exclude a low grade partial bowel obstruction in the area of herniation. 2. No abnormal fluid collections to suggest abscess. No free air or free fluid. 3. Basilar and dependent lung consolidation, left greater than right. Pneumonia could have this appearance. Small left effusion. 4. NG tip in stomach. Inferior vena cava filter present. Armstrong catheter in bladder. Jose Martin Valderrama MD Objective Remarks GENERAL: Patient is 71 yo elderly male, trached. sitting in bed, on psv today. SKIN: Warm and dry. HEAD: Normocephalic. EYES: Pallor present. No scleral icterus. No injection or drainage. NECK: trachea midline. No JVD , tracheostomy in place, minimal sanguinous drainage around trach. CARDIOVASCULAR: Regular rate and rhythm without murmurs, gallops, or rubs. RESPIRATORY: trached. unlabored. equal chest rise. GASTROINTESTINAL: Abdomen soft, non-tender, nondistended. Bowel sounds sluggish Neuro: Arousable off sedation, following commands. Moves both upper extremities weakly and wiggles toes bilaterally. Extremities: Warm bilaterally, Bilateral edema A/P Assessment and Plan Neuro/Psych: Peripheral neuropathy Chronic pain syndrome Goal RASS 0 melatonin QHS for sleep, zyprexa prn if not asleep by 2300. 07/20 CT brain: No acute intracranial abnormalities. CV: Elevated troponin- resolved. Hypertension- resolved. Dyslipidemia Lactic acidosis- resolved. Septic shock- resolved. Peripheral vascular disease History of AAA Off Stress dose steroids- Hydrocortisone decreased to 50mg daily on 07/29 and stopped on 07/31 Continue with ASA daily Echo showed EF 35-40% amlodipine 10mg po daily carvedilol 12.5mg po q12h hydralazine and labetalol prn. goal sbp < 160. Resp: Acute-->chronic hypoxemic respiratory failure Tobaccoism s/p trach 08/[address] Barrera/Dr. Upton PSV with increasing tpiece trials. Ventilator bundle. nebs prn. CT chest 07/20 revealed left greater than right basilar scarring. Bilateral adrenal adenomas. No focal consolidation OOB to stretcher chair daily. GI: Acute protein calorie malnutrition - moderate Tolerating tube feeds- Nepro with goal rate 40ml/hr. Reglan 5 mg IV every 8 hours Protonix for GI prophylaxis Colace/as needed Senokot for bowel regimen CT abdomen reviewed. Gen surgery- Dr Roman- no surgical interventions. GI consult for PEG placement, today or tomorrow. : Urinary Retention Strict intake output, monitor and replete electrolytes, follow BUN/creatinine. Started CRRT on 07/22, being followed by nephrology Dr. Magana. CRRT on hold since 07/28. Switched to hemodialysis on 07/29. Renal US: No acute findings --Cardura 2mg po daily, in 48h, plan second trial of armstrong removal today. Endo: Diabetes mellitus with nephropathy and neuropathy Bilateral adrenal adenoma Hyperglycemia Decreased Levemir to 10 units subcutaneously every 12 hourly on 07/31. On high dose sliding scale insulin on 07/29 for better glycemic control. Off steroids. Heme: Leukocytosis- resolved. Thrombocytopenia- resolved. 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 HIT screen negative. Platelets have normalized. Started heparin 5000 units subcutaneously every 12 hourly on 07/29, increased to 5000 units subcutaneously every 8 hourly on 07/31. Transfused 2 units PRBCs for drop in hemoglobin to 6.9 on 07/30. CT abdomen pelvis with no evidence of retroperitoneal hematoma. Most likely secondary to blood loss with CRRT regarding multiple times. Maintaining H&H. Advanced to full anticoagulation with heparin GTT on 08/01, will plan to transition this to Lovenox after PEG placement. ID: Strep Bacteremia Pneumonia- pseudomonas Continue with abx per ID - Unasyn switched to cefepime on 07/31 per ID due to pseudomonas in sputum. ID planning to initiate tobramycin nebulizer treatments. ID switched cefepime to Levaquin 08/08 Clindamycin stopped 07/29, vanco x 1 dose on admission. Pertinent cultures BC 07/20- GPC, Group A Beta strep Urine cx 07/20 : neg Strep pneumonia nad Legionella urinary Ag negative Follow up on Sputum cx, BC 07/21, 07/22- NGTD 07/30 Sputum c/s with pseudomonas 08/03 sputum with pseudomonas MSK: Osteoarthritis Holding vitamin D 1000 units by mouth daily. Access - piv -Right IJ vascath placed 07/22 - I have consulted IR for tunnelled VasCath at their convenience. Prophylaxis - GI - Protonix - DVT - SCD/heparin SQ. Heparin gtt 08/01 for full anticoagulation. - Doppler US LE negative for DVT Palliative care is following. stable for transfer to LTAC after PEG placement. Vitor Barrera MD August 12, 2016 12:14
[2016-08-12] MEDS ORDERED: PROPOFOL 200 MG/20 ML AMP IV ONE (13:31)
--- NOTE | 2016-08-12 13:45 | GIPROC ---
[facility] [address] [facility]. [facility], [address] EGD WITH PEG PROCEDURE REPORT EXAM DATE: 08/12/2016 PATIENT NAME: Garry Lemus MR#: [id number] BIRTHDATE: 1945 ATTENDING: Julienne Carrasco MD ORDER #: [id number] DREDGE DECKHAND: Bee Jimenez and Alaina Magana STATUS: inpatient INDICATIONS: The patient is a 71 yr old male here for an EGD with PEG due to placement of PEG PROCEDURE PERFORMED: EGD with PEG placement MEDICATIONS: Per Anesthesia and None. TOPICAL ANESTHETIC: none CONSENT: The patient understands the risks and benefits of the procedure and understands that these risks include, but are not limited to: sedation, allergic reaction, infection, perforation and/or bleeding. Alternative means of evaluation and treatment include, among others: physical exam, x-rays, and/or surgical intervention. The patient elects to proceed with this endoscopic procedure. medical equipment was checked for proper function. Hand hygiene and appropriate measures for infection prevention was taken. After the risks, benefits and alternatives of the procedure were thoroughly explained, Informed consent was verified, confirmed and timeout was successfully executed by the treatment team. The patient was anesthetized with topical anesthesia and the Pentax [id number] endoscope was introduced through the mouth and advanced to the second portion of the duodenum. The instrument was slowly withdrawn as the mucosa was fully examined. The upper, middle, and distal third of the esophagus were carefully inspected and no abnormalities were noted. The z-line was well seen at the GEJ. The endoscope was pushed into the fundus which was normal including a retroflexed view. The antrum, first and second part of the duodenum were unremarkable. The stomach was then inflated with air, and by a combination of transillumination and manual palpation, the site for the gastrostomy tube placement was selected and marked on the anterior abdominal wall. The skin of the anterior abdomen was surgically prepped and draped with sterile towels. Utilizing strict sterile technique, the selected site was then anesthetized with 1% xylocaine by injection into the skin and subcutaneous tissue. A 1 cm incision was made through the skin and subcutaneous tissue, and the needle/cannula assembly was then passed through the abdominal wall and through the anterior wall of the stomach, maintaining visualization with the endoscope. A snare device previously placed through the instrument channel was then opened and placed around the cannula, the needle was removed, and the insertion wire was passed through the cannula and into the stomach lumen. The snare was then loosened from the cannula, and repositioned to snare the insertion wire. The snare was then pulled up to the endoscope distal tip, and the scope was then withdrawn bringing with it the snare and insertion wire. The insertion wire was then released from the snare, and then loop-attached to the Bard 20 Fr gastrostomy tube. Using the "pull technique", the G-tube was then pulled into place by traction on the insertion wire at the abdominal wall end. The G-tube insertion site was then cleansed once again, and the external bolster was placed over the tube to secure it to the abdominal wall. A sterile dressing was then applied, and the procedure terminated. no abnormalities The gastroscope was then slowly withdrawn and removed. ADVERSE EVENT: There were no complications. IMPRESSIONS: 1. The upper, middle, and distal third of the esophagus were carefully inspected and no abnormalities were noted. The z-line was well seen at the GEJ. The endoscope was pushed into the fundus which was normal including a retroflexed view. The antrum, first and second part of the duodenum were unremarkable. 2. No abnormalities RECOMMENDATIONS: PEG recomendations: 1- NPO for 6 hours except for meds 2- Flush PEG tube every 6 hours with water and after each PEG feeding 3- May resume regular diet in the morning 4- May use Ensure or Boost etc. for PEG tube feeding REPEAT EXAM: procedure as needed Julienne Carrasco MD eSigned: Julienne Carrasco MD 08/12/2016 1:45 PM cc: PATIENT NAME: Grary Lemus MR#: [id number]
[2016-08-12] MEDS: ACETAMINOPHEN/HYDROcodone 325 MG/5 MG TAB PO PRN (16:15)
--- NOTE | 2016-08-12 17:00 | HHI.NPPN ---
Subjective History of Present Illness 71-year-old male with past medical history of diabetes mellitus, hypertension, ischemic heart disease, peripheral neuropathy, chronic kidney disease, history of deep vein thrombosis, hyperlipidemia was brought to the hospital because of generalized weakness, confusion and vomiting and diarrhea. I was called to see the patient because of elevated BUN and creatinine. The patient has history of acute kidney injury in the past and chronic kidney disease. His creatinine was around 1.2 to 1.4, this was in 2012. Additional Remarks Patient is alert, now with Trach. and T-Piece, clinically same. Review of Systems General Constitutional: Fatigue Respiratory Lungs: SOB, Cough, Sputum, Wheeze Objective Data Data 08/11/16 08/12/16 18:59 06:59 Intake Total 438 ml 645 ml Output Total 325 ml 550 ml Balance 113 ml 95 ml Intake IV Total 136 ml 300 ml Tube Feeding 202 ml 255 ml Tube Irrigant 100 ml Other 90 ml Output Urine Total 325 ml 550 ml # Bowel Movements 2 Vital Signs Date Time Temp Pulse Resp B/P Pulse Ox O2 Delivery O2 Flow Rate FiO2 08/12/16 14:00 81 08/12/16 12:00 97.8 91 24 127/61 98 08/12/16 12:00 91 08/12/16 10:00 80 08/12/16 09:12 94 T-piece 6.00 40 08/12/16 08:00 84 08/12/16 08:00 98.9 84 16 155/72 95 08/12/16 06:00 89 08/12/16 04:00 98.6 94 22 163/74 98 08/12/16 04:00 94 08/12/16 02:00 82 08/12/16 00:00 98.8 84 26 138/63 93 08/12/16 00:00 84 08/11/16 22:10 96 T-piece 6.00 40 08/11/16 22:00 90 08/11/16 20:00 86 08/11/16 20:00 99.1 86 29 131/62 94 08/11/16 18:00 90 -: 08/12/16 0346 08/12/16 0346 Physical Exam General Appearance: No Acute Distress, Anxious Eyes Eye Exam: Pupils Equal Throat Throat Exam: Oral Mucosa Perry & Moist Neck Neck Exam: Neck Supple Pulmonary Resp Exam: Rhonchi, Decreased Bases, Diminished Breath Sounds, Poor Inspiratory Effort Cardiology CV Exam: Regular, Normal Sinus Rhythm Gastrointestinal/Abdomen GI Exam: Soft, Non-Tender, Bowel Sounds Present Extremeties Extremities Exam: Trace Edema Neurologic Neuro Exam: Alert, Awake Psychiatric Psych Exam: Appropriate Responses Assessment/Plan Assessment Summary: ADALID/Acute Renal Failure Electrolyte Assessment: Metabolic Acidosis Problem List: (1) Diabetes mellitus with neuropathy (2) Leukocytosis (3) Peripheral vascular disease (4) Severe sepsis with acute organ dysfunction (5) History of DVT (deep vein thrombosis) (6) Hypoxia (7) Acidosis (8) Lactic acidosis Plan Patient has some improvement in the urine out put. BP is better now, on Amlodipine and Doxazosin. sputum c/s results noted Pseudomonas, seen by ID. On Levaquin, ID following. HD done today and 2. liters removed. Has PEG done, to get PermCath in AM. Problem Qualifiers (1) Diabetes mellitus with neuropathy: Qualified Code: E11.40 - Type 2 diabetes mellitus with diabetic neuropathy, unspecified buttermaker insulin use status (2) Leukocytosis: Qualified Code: D72.829 - Leukocytosis, unspecified type Frank Magana MD August 12, 2016 17:00
[2016-08-12] MEDS: MELATONIN 5 MG TAB PO SCH (20:20)
[2016-08-13] VITALS (13 sets, daily range): BP systolic 147–167; BP diastolic 65–77; PULSE 74–98; RESP 19–37; TEMP 98.3–99.5; O2SAT 94–99
[2016-08-13] MEDS: METOCLOPRAMIDE HCL 10 MG/2 ML VIAL IV PUSH SCH ×3 (00:30→18:14)
[2016-08-13] MEDS: ACETAMINOPHEN/HYDROcodone 325 MG/5 MG TAB PO PRN ×3 (00:30→22:34)
[2016-08-13 04:37] LABS: HEMATOCRIT 24.8 % (39.0-51.0); MEAN CELL VOLUME 90.6 FL (80.0-100.0); MEAN CORPUSCULAR HEMOGLOBIN 29.9 PG (27.0-34.0); PLATELET COUNT 285 TH/MM3 (150-450); RED BLOOD COUNT 2.74 MIL/MM3 (4.50-5.90); RED CELL DISTRIBUTION WIDTH 13.8 % (11.6-17.2); REVIEW FLAG FINAL; WHITE BLOOD COUNT 6.1 TH/MM3 (4.0-11.0)
[2016-08-13 04:52] LABS: INTERNATIONAL NORMALIZED RATIO 1.3 RATIO; PROTHROMBIN TIME - PATIENT 14.1 SEC (9.8-11.6)
[2016-08-13 05:36] LABS: BICARBONATE 28.7 MEQ/L (21.0-32.0); POTASSIUM 3.4 MEQ/L (3.5-5.1)
[2016-08-13] MEDS: CHLORHEXIDINE GLUCONATE 2 % 1 PACK (2 CLOTHS) TOP SCH (05:42)
[2016-08-13] MEDS: INSULIN ASPART SUPPLEMENTAL SCALE SQ SCH ×4 (06:00→18:00)
[2016-08-13] MEDS: LABETALOL HCL 100 MG/20 ML VIAL IV PRN (06:07)
[2016-08-13] MEDS: CHLORHEXIDINE 0.12% (ORAL KIT) 15 ML CUP MT SCH ×2 (08:00→20:29)
[2016-08-13] MEDS: RESP: ALBUTEROL 2.5 MG/3 ML NEB (PRN) INH (08:32)
[2016-08-13] MEDS: RESP: TOBRAMYCIN SULFATE 80 MG/2 ML NEB NEB SCH (08:33)
[2016-08-13] MEDS: SENNOSIDES SYRUP 8.8 MG/5 ML CUP OG-TUBE SCH (09:00)
[2016-08-13] MEDS: INSULIN DETEMIR 100 UNITS/ML VIAL SQ SCH ×2 (09:00→22:33)
[2016-08-13] MEDS: SODIUM CHLORIDE 0.9% FLUSH 10 ML FLUSH IV FLUSH SCH ×2 (09:28→21:57)
[2016-08-13] MEDS: PANTOPRAZOLE SODIUM 40 MG VIAL IV SCH (09:28)
[2016-08-13] MEDS: LEVOFLOXACIN 250 MG TAB PO SCH (09:29)
[2016-08-13] MEDS: CARVEDILOL 12.5 MG TAB PO SCH ×2 (09:29→21:55)
[2016-08-13] MEDS: LACTOBACILLUS ACIDOPHILUS TAB PO SCH ×3 (09:29→18:14)
[2016-08-13] MEDS: DOXAZOSIN MESYLATE 2 MG TAB PO SCH (09:29)
[2016-08-13] MEDS: DOCUSATE SODIUM 100 MG CAP PO SCH ×2 (09:29→21:55)
[2016-08-13] MEDS: ASPIRIN 81 MG CHEW TAB CHEW SCH (09:30)
[2016-08-13] MEDS: SODIUM CHLORIDE 0.9% FLUSH 10 ML FLUSH IVF SCH (09:31)
[2016-08-13] MEDS ORDERED: VANCOMYCIN INJ 1,000 MG in SODIUM CHLOR 0.9% 250 ML INJ 250 ML IV SCH (10:30)
--- NOTE | 2016-08-13 10:47 | HHI.CCPN ---
Subjective Remarks/Hospital Course 71-year-old male. Date of admission 07/20/2016. Past records includes diabetes with neuropathy and nephropathy, hypertension, dyslipidemia, chronic pain syndrome, history of DVT/PE on chronic anticoagulation, peripheral vascular disease with history of AAA, and osteoporosis. Patient recently C [place] 07/06/16. Patient sick contacts would include neighbor with "vital illness. Patient is to [facility] today with acute onset of diarrhea, hypoglycemia and chills. Upon arrival, patient was noted be acutely hypoxic and required a nonrebreather mask. Patient denies pleuritic chest pain , abdominal pain but positive for nausea and diarrhea. CT chest revealed bilateral lower lobe scarring, bilateral adrenal adenomas a nonspecific bowel gas pattern. Chest x-ray revealed no significant findings. Lab work included a lactic acid elevated 7.7, white blood cell count 12,000 in acute kidney injury with a creatinine of 3.0. Baseline around 1.5-2. Troponin was slightly elevated 0.14. EKG is currently pending. Upon arrival to [facility], patient was extremely mottled with rates in the 40s. Patient was emergently intubated please see note and a left IJ central line was placed. CT of the head, abdomen and pelvis currently pending. 07/21 Patient is sedated with Diprivan and Fentanyl and intubated. On Levophed 22 mics, Vasopressin and bicarb drip. BC from 07/20: GPC all 4 bottles. 07/22 Patient remains sedated and intubated On Levophed 22 mics, vasopressin and bicarb drip. Awaiting to start CVVHD today 07/23: Remains sedated, orally intubated on mech ventilation. On Levophed 15 mics per minute and low-dose vasopressin for pressor support. On CRRT. 07/24: Remains sedated, orally intubated on mechanical ventilation. On Levophed 7 mics per minute and low-dose vasopressin for pressor support. CRRT was stopped at 1:30 AM due to Air in system and has now been resumed. 2 Amps of bicarbonate given for metabolic acidosis while CRRT held and bicarbonate drip was started back yesterday 07/25: Remains critically ill, on CVVH. Levoped 6 mics per minute. White count has normalized, making slight amount of urine. Showing some signs of progress 07/26: Remains sedated, orally intubated on mechanical ventilation. Remains on Levophed 3 mics per minute, vasopressin 0.03 mics per minute. CRRT continues. 07/27: Remains sedated, orally intubated on mechanical ventilation. Remains on Levophed 2 mics per minute, vasopressin 0.03 mics per minute. On CRRT. 07/28: Remains sedated, orally intubated on mechanical ventilation. Off Levophed. Remains on vasopressin. CRRT clotted off this morning and is on hold currently. Nephrology to decide regarding regular hemodialysis as patient is now off Levophed. 07/29: Sedated, arousable, orally intubated on mechanical ventilation. Off Levophed and vasopressin drips. To be initiated on hemodialysis today. Tolerating tube feeds. 07/30: Sedated, arousable, orally intubated on mechanical ventilation. Hemoglobin dropped to 6.9 this morning no evidence of melena or rectal bleeding noted. Stat CT abdomen pelvis did not reveal any evidence of retroperitoneal hematoma. Patient is maintaining his blood pressure and has not had any hypotension. 2 units PRBCs ordered this morning. 07/31: Sedated, arousable, orally intubated on mechanical ventilation. Underwent hemodialysis this morning. 08/01: Arousable off sedation, weakly grasps on command and wiggles toes. Remains orally intubated on mechanical ventilation. Tolerating tube feeds. 08/02: Awake off sedation, orally intubated on mechanical ventilation. Tolerating tube feeds. Awaiting hemodialysis today. 08/03: Patient failed extubation on 08/02 and required reintubation due to inability to mobilize secretions and worsening hypoxia about 8 hours following extubation. Sedated, orally intubated on mechanical ventilation. Started on Mucomyst and percussion therapy to mobilize secretions. 08/04: Remains sedated, orally intubated on mechanical ventilation. Significant pulmonary secretions being suctioned out following initiation of Mucomyst and percussion therapy per overnight HEADHUNTER. Tolerating tube feeds. 08/05: Arousable off sedation, orally intubated on mechanical ventilation. Underwent hemodialysis today. Still has copious pulmonary secretions though these are being mobilized with Mucomyst and percussion therapy. Tolerating tube feeds. On C Pap trial to decide extubation. If he fails extubation or is unable to get extubated today will consider for tracheostomy tomorrow. 08/06: failing CPAP trials for tachypnea. 08/07: mental status improving. BP very well controlled off cardene. plan for trach today. 08/08: trach yesterday. now doing very well. on minimal PSV settings. plan for PEG on thursday. family at bedside and very happy with his improvements. patient smiled today for the first time in a few days. 08/09: tolerated 30 minutes of t-piece yesterday. rested on rate overnight. back on PSV this morning. interactive. doing well. denies complaints. plan for PEG thursday. 08/10: tolerated t-piece x 3 hours today. interactive and doing well in a chair today. still plans for PEG tomorrow. replaced NGT today, and patient has no gag or swallow strength at all per nursing. urinary retention and armstrong catheter replaced overnight. 08/11: continues to improve from a pulmonary standpoint. plan is for PEG today or tomorrow. working on placement. 08/12: doing well. PEG planned for noon. LTAC placement authorization in progress. from my standpoint, after PEG, stable for transfer to LTAC. 08/13: no overnight issues, permacath planned for placement today by IR, medically optimized for transfer to LTAC Objective Vital Signs Date Time Temp Pulse Resp B/P Pulse Ox O2 Delivery O2 Flow Rate FiO2 08/13/16 08:37 96 T-piece 6.00 40 08/13/16 06:00 95 08/13/16 04:00 98.8 24 167/69 Intake and Output 08/12/16 08/12/16 08/13/16 08:00 16:00 00:00 Intake Total 180 ml 100 ml 90 ml Output Total 300 ml 2675 ml 125 ml Balance -120 ml -2575 ml -35 ml Result Diagram: 08/13/16 0409 08/13/16 0409 Imaging Last 48 hours Impressions Chest X-Ray 08/02/16 1421 Signed Impressions: Service Date/Time: Tuesday, August 02, 2016 14:42 - CONCLUSION: No significant interval change in bilateral pulmonary opacity. Castillo Roldan MD Last 48 hours Impressions Chest X-Ray 08/02/16 0600 Signed Impressions: Service Date/Time: Tuesday, August 02, 2016 05:47 - CONCLUSION: 1. Support apparatus in satisfactory position. Bilateral mostly basilar airspace disease and effusions similar to July 30. Jose Martin Valderrama MD Last 24 hours Impressions Chest X-Ray 07/28/16 0600 Signed Impressions: Service Date/Time: Thursday, July 28, 2016 03:09 - CONCLUSION: No significant change. Hazy opacity remains in both lungs most consistent with congestive heart failure. Alonzo Bradshaw MD Last 24 hours Impressions Chest X-Ray 07/26/16 0600 Signed Impressions: Service Date/Time: Tuesday, July 26, 2016 04:56 - CONCLUSION: No significant change. Jovan Aldridge MD Last 48 hours Impressions Abdomen X-Ray 07/24/16 0749 Signed Impressions: Service Date/Time: July 08:28 - CONCLUSION: Air-filled bowel loops centrally but no obstruction seen. Uli Atkins MD Chest X-Ray 07/24/16 0600 Signed Impressions: Service Date/Time: July 05:36 - CONCLUSION: Unchanged bibasilar infiltrates. Omer Cheng Jr., MD Last Impressions Chest X-Ray 07/21/16 0000 Signed Impressions: Service Date/Time: Thursday, July 21, 2016 22:13 - CONCLUSION: Satisfactory central line positioning. Worsening aeration. Berlin Guillermo MD Renal Ultrasound 07/20/16 0000 Signed Impressions: Service Date/Time: Wednesday, July 20, 2016 14:32 - CONCLUSION: 1. No acute findings. Renal ultrasound unremarkable. Bladder was not well-visualized. Jose Martin Valderrama MD Lower Extremity Ultrasound 07/20/16 0000 Signed Impressions: Service Date/Time: Wednesday, July 20, 2016 14:39 - CONCLUSION: Negative exam with no evidence of deep venous thrombosis. Alonzo Bradshaw MD Head CT 07/20/16 0000 Signed Impressions: Service Date/Time: Wednesday, July 20, 2016 18:21 - CONCLUSION: 1. No acute intracranial abnormalities. Mild mucosal thickening of the ethmoid air cells. Jose Martin Valderrama MD Chest CT 07/20/16 0000 Signed Impressions: Service Date/Time: Wednesday, July 20, 2016 11:28 - CONCLUSION: 1. Chronic scarring in the lung bases left greater than right. 2. No focal consolidation. 3. Bilateral adrenal masses left greater than right most consistent with adenomas. 4. Nonspecific bowel gas pattern noted in the upper abdomen with air-fluid levels in the small bowel. Alonzo Bradshaw MD Abdomen/Pelvis CT 07/20/16 0000 Signed Impressions: Service Date/Time: Wednesday, July 20, 2016 18:24 - CONCLUSION: 1. Lower abdominal ventral midline hernia containing loop of small bowel. Small bowel is mildly distended somewhat diffusely with fluid and air. Cannot exclude a low grade partial bowel obstruction in the area of herniation. 2. No abnormal fluid collections to suggest abscess. No free air or free fluid. 3. Basilar and dependent lung consolidation, left greater than right. Pneumonia could have this appearance. Small left effusion. 4. NG tip in stomach. Inferior vena cava filter present. Armstrong catheter in bladder. Jose Martin Valderrama MD Objective Remarks GENERAL: Patient is 71 yo elderly male, trached. sitting in bed, on psv today. SKIN: Warm and dry. HEAD: Normocephalic. EYES: Pallor present. No scleral icterus. No injection or drainage. NECK: trachea midline. No JVD , tracheostomy in place, minimal sanguinous drainage around trach. CARDIOVASCULAR: Regular rate and rhythm without murmurs, gallops, or rubs. RESPIRATORY: trached. unlabored. equal chest rise. GASTROINTESTINAL: Abdomen soft, non-tender, nondistended. Bowel sounds sluggish Neuro: Arousable off sedation, following commands. Moves both upper extremities weakly and wiggles toes bilaterally. Extremities: Warm bilaterally, Bilateral edema A/P Assessment and Plan Neuro/Psych: Peripheral neuropathy Chronic pain syndrome Goal RASS 1 melatonin QHS for sleep, zyprexa prn if not asleep by 2300. 07/20 CT brain: No acute intracranial abnormalities. CV: Elevated troponin- resolved. Hypertension- resolved. Dyslipidemia Lactic acidosis- resolved. Septic shock- resolved. Peripheral vascular disease History of AAA Off Stress dose steroids- Hydrocortisone decreased to 50mg daily on 07/29 and stopped on 07/31 Continue with ASA daily Echo showed EF 35-40% Norvasc 10mg po daily Coreg 12.5mg po q12h Hydralazine and labetalol when necessary to keep SBP less than 160 Resp: Acute-->chronic hypoxemic respiratory failure Tobaccoism s/p trach 08/[address] Barrera/Dr. Upton Comfortable and TPs for last 48 hours in no acute distress Duo nebs when necessary CT chest 07/20 revealed left greater than right basilar scarring. Bilateral adrenal adenomas. No focal consolidation OOB to stretcher chair daily. GI: Acute protein calorie malnutrition - moderate Tolerating tube feeds- Nepro with goal rate 40ml/hr. Reglan 5 mg IV every 8 hours Protonix for GI prophylaxis Colace/as needed Senokot for bowel regimen CT abdomen reviewed. Gen surgery- Dr Roman- no surgical interventions. PEG placement by GI yesterday 08/12 : Urinary Retention Strict intake output, monitor and replete electrolytes, follow BUN/creatinine. Started CRRT on 07/22, being followed by nephrology Dr. Magana. CRRT on hold since 07/28. Switched to hemodialysis on 07/29. Renal US: No acute findings --Cardura 2mg po daily, in 48h Endo: Diabetes mellitus with nephropathy and neuropathy Bilateral adrenal adenoma Hyperglycemia Decreased Levemir to 10 units subcutaneously every 12 hourly on 07/31. On high dose sliding scale insulin on 07/29 for better glycemic control. Off steroids. Heme: Leukocytosis- resolved. Thrombocytopenia- resolved. 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 HIT screen negative. Platelets have normalized. Started heparin 5000 units subcutaneously every 12 hourly on 07/29, increased to 5000 units subcutaneously every 8 hourly on 07/31. Transfused 2 units PRBCs for drop in hemoglobin to 6.9 on 07/30. CT abdomen pelvis with no evidence of retroperitoneal hematoma. Most likely secondary to blood loss with CRRT regarding multiple times. Maintaining H&H. Advanced to full anticoagulation with heparin GTT on 08/01, will plan to transition to Coumadin. ID: Strep Bacteremia Pneumonia- pseudomonas Continue with abx per ID - Unasyn switched to cefepime on 07/31 per ID due to pseudomonas in sputum. ID planning to initiate tobramycin nebulizer treatments. ID switched cefepime to Levaquin 08/08 Clindamycin stopped 07/29, vanco x 1 dose on admission. Pertinent cultures BC 07/20- GPC, Group A Beta strep Urine cx 07/20 : neg Strep pneumonia nad Legionella urinary Ag negative Follow up on Sputum cx, BC 07/21, 07/22- NGTD 07/30 Sputum c/s with pseudomonas 08/03 sputum with pseudomonas MSK: Osteoarthritis Holding vitamin D 1000 units by mouth daily. Access - piv -Right IJ vascath placed 07/22 - I have consulted IR for tunnelled VasCath at their convenience. Prophylaxis - GI - Protonix - DVT - SCD/heparin SQ. Heparin gtt 08/01 for full anticoagulation. - Doppler US LE negative for DVT Palliative care is following. stable for transfer to LTAC after PEG placement. Enrrique Berg MD August 13, 2016 10:47
--- NOTE | 2016-08-13 11:06 | HHI.NPPN ---
Subjective History of Present Illness 71-year-old male with past medical history of diabetes mellitus, hypertension, ischemic heart disease, peripheral neuropathy, chronic kidney disease, history of deep vein thrombosis, hyperlipidemia was brought to the hospital because of generalized weakness, confusion and vomiting and diarrhea. I was called to see the patient because of elevated BUN and creatinine. The patient has history of acute kidney injury in the past and chronic kidney disease. His creatinine was around 1.2 to 1.4, this was in 2012. Additional Remarks Patient is alert, sitting on the chair, with Trach. and T-Piece, now GT is on hold for the procedure. Review of Systems General Constitutional: Fatigue Respiratory Lungs: SOB, Cough, Sputum, Wheeze Objective Data Data 08/12/16 08/13/16 18:59 06:59 Intake Total 100 ml 301 ml Output Total 2675 ml 425 ml Balance -2575 ml -124 ml Intake IV Total 0 ml Tube Feeding 0 ml 91 ml Tube Irrigant 100 ml Other 210 ml Output Urine Total 175 ml 425 ml Hemodialysis 2500 ml # Bowel Movements 2 3 Vital Signs Date Time Temp Pulse Resp B/P Pulse Ox O2 Delivery O2 Flow Rate FiO2 08/13/16 08:37 96 T-piece 6.00 40 08/13/16 07:00 97 T-Piece 40 08/13/16 06:00 95 08/13/16 04:00 94 08/13/16 04:00 98.8 94 24 167/69 97 08/13/16 02:00 74 08/13/16 01:00 98 T-piece 6.00 40 08/13/16 00:00 88 08/13/16 00:00 98.5 88 25 155/65 99 08/12/16 22:00 89 08/12/16 20:00 98.9 92 19 146/66 100 08/12/16 20:00 95 08/12/16 20:00 T-Piece 40 08/12/16 19:35 100 T-piece 40 08/12/16 18:00 94 08/12/16 16:00 98.5 86 21 140/70 100 08/12/16 16:00 86 08/12/16 14:00 81 08/12/16 12:00 97.8 91 24 127/61 98 08/12/16 12:00 91 -: 08/13/16 0409 08/13/16 0409 Physical Exam General Appearance: No Acute Distress, Anxious Eyes Eye Exam: Pupils Equal Throat Throat Exam: Oral Mucosa [place] & Moist Neck Neck Exam: Neck Supple Pulmonary Resp Exam: Rhonchi, Decreased Bases, Diminished Breath Sounds, Poor Inspiratory Effort Cardiology CV Exam: Regular, Normal Sinus Rhythm Gastrointestinal/Abdomen GI Exam: Soft, Non-Tender, Bowel Sounds Present Extremeties Extremities Exam: Trace Edema Neurologic Neuro Exam: Alert, Awake Psychiatric Psych Exam: Appropriate Responses Assessment/Plan Assessment Summary: ADALID/Acute Renal Failure Electrolyte Assessment: Metabolic Acidosis Problem List: (1) Diabetes mellitus with neuropathy (2) Leukocytosis (3) Peripheral vascular disease (4) Severe sepsis with acute organ dysfunction (5) History of DVT (deep vein thrombosis) (6) Hypoxia (7) Acidosis (8) Lactic acidosis Plan Patient has some improvement in the urine out put. BP is occ. elevated due to agitation, on Amlodipine and Doxazosin. sputum c/s results noted Pseudomonas, seen by ID. On Levaquin, ID following. HD done yesterday, tolerated well. Still has elevated Creatinine. To get PermCath today. Can start Eliquis 2.5 mg BID if need anticoagulation. HD again in AM. Problem Qualifiers (1) Diabetes mellitus with neuropathy: Qualified Code: E11.40 - Type 2 diabetes mellitus with diabetic neuropathy, unspecified halfway insulin use status (2) Leukocytosis: Qualified Code: D72.829 - Leukocytosis, unspecified type Frank Magana MD August 13, 2016 11:06
--- NOTE | 2016-08-13 12:55 | HHI.IDPN ---
Subjective Subjective Remarks 71-year-old male admitted to the hospital for acute onset of diarrhea, chills and hypoglycemia. Patient apparently working in the yard July 18 and July 19. He was doing okay except for complaints on his lower extremity which is apparently chronic and related to his peripheral vascular disease. That night, the noted that the patient was breathing hard. She asked the patient and he stated that he is not short of breath. He has not complained of any sore throat, has not been congested, and has eaten without any problem. He has not had any urinary complaints. That night apparently the couldn't sleep, and around 4 :00 in the morning the patient woke up and stated that he wanted to go to the bathroom. Patient didn't make it, and had stool incontinence. He was noted to have some chills, and his blood sugars were low. He also had episode of vomiting. Patient was taken to the hospital, and since admission he is developed profound hypotension, and acidosis. He ended up getting intubated, and currently on Levophed and vasopressin. His white count is elevated, lactic acid elevated, and his creatinine is also quite elevated. His urine output has been low. Cultures done in the emergency room, are now reported as growing group A strep. Notes reviewed Clinically doing well from ID standpoint Had HD yesterday Permacath placement today S/P PEG yesterday Waiting for insurance auth for [facility] Doing well on T-piece S/P trach yesterday Antibiotics Levaquin Vanco Tobra nebs Lines [facility] - 07/22 Past Medical History Reviewed Allergies: Coded Allergies: No Known Allergies (Verified , 07/20/16) Objective . Vital Signs Date Time Temp Pulse Resp B/P Pulse Ox O2 Delivery O2 Flow Rate FiO2 08/13/16 08:37 96 T-piece 6.00 40 08/13/16 07:00 97 T-Piece 40 08/13/16 06:00 95 08/13/16 04:00 94 08/13/16 04:00 98.8 94 24 167/69 97 08/13/16 02:00 74 08/13/16 01:00 98 T-piece 6.00 40 08/13/16 00:00 88 08/13/16 00:00 98.5 88 25 155/65 99 08/12/16 22:00 89 08/12/16 20:00 98.9 92 19 146/66 100 08/12/16 20:00 95 08/12/16 20:00 T-Piece 40 08/12/16 19:35 100 T-piece 40 08/12/16 18:00 94 08/12/16 16:00 98.5 86 21 140/70 100 08/12/16 16:00 86 08/12/16 14:00 81 08/12/16 08/12/16 08/13/16 15:00 23:00 07:00 Intake Total 100 ml 90 ml 211 ml Output Total 2675 ml 125 ml 300 ml Balance -2575 ml -35 ml -89 ml Intake IV Total 0 ml Tube Feeding 0 ml 91 ml Tube Irrigant 100 ml Other 90 ml 120 ml Output Urine Total 175 ml 125 ml 300 ml Hemodialysis 2500 ml # Bowel Movements 2 3 0 . Laboratory Tests Test 08/12/16 08/13/16 03:46 04:09 White Blood Count 5.9 TH/MM3 6.1 TH/MM3 Red Blood Count 2.80 MIL/MM3 2.74 MIL/MM3 Hemoglobin 8.3 GM/DL 8.2 GM/DL Hematocrit 25.4 % 24.8 % Mean Corpuscular Volume 90.6 FL 90.6 FL Mean Corpuscular Hemoglobin 29.5 PG 29.9 PG Mean Corpuscular Hemoglobin 32.6 % 33.0 % Concent Red Cell Distribution Width 14.1 % 13.8 % Platelet Count 272 TH/MM3 285 TH/MM3 Mean Platelet Volume 8.4 FL 8.3 FL Laboratory Tests Test 08/12/16 08/13/16 03:46 04:09 Sodium Level 140 MEQ/L 137 MEQ/L Potassium Level 3.1 MEQ/L 3.4 MEQ/L Chloride Level 99 MEQ/L 98 MEQ/L Carbon Dioxide Level 28.7 MEQ/L 28.7 MEQ/L Anion Gap 12 MEQ/L 10 MEQ/L Blood Urea Nitrogen 68 MG/DL 44 MG/DL Creatinine 5.24 MG/DL 3.65 MG/DL Estimat Glomerular Filtration 11 ML/MIN 17 ML/MIN Rate Random Glucose 129 MG/DL 122 MG/DL Calcium Level 8.0 MG/DL 8.2 MG/DL Imaging Last 72 hours Impressions Chest X-Ray 08/07/16 0000 Signed Impressions: Service Date/Time: July 18:14 - CONCLUSION: 1. New tracheostomy, appears normally positioned. 2. Unchanged right IJ central venous catheter and nasogastric tube 3. Worsening consolidation and effusions of both bases. Berlin Reynoso MD Chest X-Ray 08/05/16 0000 Signed Impressions: Service Date/Time: Friday, August 05, 2016 12:38 - CONCLUSION: Mild improvement of bilateral airspace disease. Small right pleural effusion. Uli Atkins MD Chest X-Ray 08/02/16 1421 Signed Impressions: Service Date/Time: Tuesday, August 02, 2016 14:42 - CONCLUSION: No significant interval change in bilateral pulmonary opacity. Castillo Roldan MD Chest X-Ray 08/02/16 0600 Signed Impressions: Service Date/Time: Tuesday, August 02, 2016 05:47 - CONCLUSION: 1. Support apparatus in satisfactory position. Bilateral mostly basilar airspace disease and effusions similar to July 30. Jose Martin Valderrama MD Chest X-Ray 08/02/16 142 Signed Impressions: Service Date/Time: Tuesday, August 02, 2016 14:42 - CONCLUSION: No significant interval change in bilateral pulmonary opacity. Castillo Roldan MD Abdomen/Pelvis CT 07/30/16 0000 Signed Impressions: Service Date/Time: Saturday, July 30, 2016 07:57 - CONCLUSION: 1. No retroperitoneal hematoma. 2. Bibasilar pulmonary consolidations with small effusions. 3. Chronic pancreatitis. No acute inflammation observed. 4. 2 ventral hernias. 5. IVC filter. 6. 3.6 x 3.1 cm AAA. Omer Cheng Jr., MD Abdomen X-Ray 07/24/16 0749 Signed Impressions: Service Date/Time: July 08:28 - CONCLUSION: Air-filled bowel loops centrally but no obstruction seen. Uli Atkins MD Renal Ultrasound 07/20/16 Signed Impressions: Service Date/Time: Wednesday, July 20, 2016 14:32 - CONCLUSION: 1. No acute findings. Renal ultrasound unremarkable. Bladder was not well-visualized. Jose Martin Valderrama MD Lower Extremity Ultrasound 07/20/16 Signed Impressions: Service Date/Time: Wednesday, July 20, 2016 14:39 - CONCLUSION: Negative exam with no evidence of deep venous thrombosis. Alonzo Bradshaw MD Head CT 07/20/16 Signed Impressions: Service Date/Time: Wednesday, July 20, 2016 18:21 - CONCLUSION: 1. No acute intracranial abnormalities. Mild mucosal thickening of the ethmoid air cells. Jose Martin Valderrama MD Chest CT 07/20/16 Signed Impressions: Service Date/Time: Wednesday, July 20, 2016 11:28 - CONCLUSION: 1. Chronic scarring in the lung bases left greater than right. 2. No focal consolidation. 3. Bilateral adrenal masses left greater than right most consistent with adenomas. 4. Nonspecific bowel gas pattern noted in the upper abdomen with air-fluid levels in the small bowel. Alonzo Bradshaw MD Chest X-Ray 08/02/16599 Signed Impressions: Service Date/Time: Tuesday, August 02, 2016 05:47 - CONCLUSION: 1. Support apparatus in satisfactory position. Bilateral mostly basilar airspace disease and effusions similar to July 30. Jose Martin Valderrama MD Chest X-Ray 07/30/16599 Signed Impressions: Service Date/Time: Saturday, July 30, 2016 05:07 - CONCLUSION: 1. Interval increase in hazy opacity in the right lung. 2. Bilateral effusions are again noted with cardiomegaly and the findings are most characteristic of congestive heart failure. Alonzo Bradshaw MD Abdomen/Pelvis CT 07/30/16 Signed Impressions: Service Date/Time: Saturday, July 30, 2016 07:57 - CONCLUSION: 1. No retroperitoneal hematoma. 2. Bibasilar pulmonary consolidations with small effusions. 3. Chronic pancreatitis. No acute inflammation observed. 4. 2 ventral hernias. 5. IVC filter. 6. 3.6 x 3.1 cm AAA. Omer Cheng Jr., MD Chest X-Ray 07/28/16599 Signed Impressions: Service Date/Time: Thursday, July 28, 2016 03:09 - CONCLUSION: No significant change. Hazy opacity remains in both lungs most consistent with congestive heart failure. Alonzo Bradshaw MD Chest X-Ray 07/28/16599 Signed Impressions: Service Date/Time: Thursday, July 28, 2016 03:09 - CONCLUSION: No significant change. Hazy opacity remains in both lungs most consistent with congestive heart failure. Alonzo Bradshaw MD Abdomen X-Ray 07/24/16 0749 Signed Impressions: Service Date/Time: July 08:28 - CONCLUSION: Air-filled bowel loops centrally but no obstruction seen. Uli Atkins MD Renal Ultrasound 07/20/16 0000 Signed Impressions: Service Date/Time: Wednesday, July 20, 2016 14:32 - CONCLUSION: 1. No acute findings. Renal ultrasound unremarkable. Bladder was not well-visualized. Jose Martin Valderrama MD Lower Extremity Ultrasound 07/20/16 Signed Impressions: Service Date/Time: Wednesday, July 20, 2016 14:39 - CONCLUSION: Negative exam with no evidence of deep venous thrombosis. Alonzo Bradshaw MD Head CT 07/20/16 Signed Impressions: Service Date/Time: Wednesday, July 20, 2016 18:21 - CONCLUSION: 1. No acute intracranial abnormalities. Mild mucosal thickening of the ethmoid air cells. Jose Martin Valderrama MD Chest CT 07/20/16 Signed Impressions: Service Date/Time: Wednesday, July 20, 2016 11:28 - CONCLUSION: 1. Chronic scarring in the lung bases left greater than right. 2. No focal consolidation. 3. Bilateral adrenal masses left greater than right most consistent with adenomas. 4. Nonspecific bowel gas pattern noted in the upper abdomen with air-fluid levels in the small bowel. Alonzo Bradshaw MD Abdomen/Pelvis CT 07/20/16 Signed Impressions: Service Date/Time: Wednesday, July 20, 2016 18:24 - CONCLUSION: 1. Lower abdominal ventral midline hernia containing loop of small bowel. Small bowel is mildly distended somewhat diffusely with fluid and air. Cannot exclude a low grade partial bowel obstruction in the area of herniation. 2. No abnormal fluid collections to suggest abscess. No free air or free fluid. 3. Basilar and dependent lung consolidation, left greater than right. Pneumonia could have this appearance. Small left effusion. 4. NG tip in stomach. Inferior vena cava filter present. Connelly catheter in bladder. Jose Martin Valderrama MD Assessment & Plan Remarks IMPRESSION Group A Strep sepsis, with shock, MOSF, present on admission, source is not established - ?primary bacteremia Respiratory failure PSAE PNA Renal failure, sp CVVHD Thrombocytopenia due to sepsis, no DIC - slowly improving Known DM, HTN, PVD, CAD Diarrhea, abx associated Fevers, resolved RECOMMENDATION Monitor temps Continue Levaquin and Vanco - end dates ordered in [employer] Stop Tobra nebs He is clinically doing well from ID standpoint I will sign off Please call if with any other ID issue or question Ceci Niño MD August 13, 2016 12:55
[2016-08-13] MEDS ORDERED: fentaNYL CITRATE 250 MCG/5 ML AMP ONE (13:00)
[2016-08-13] MEDS ORDERED: MIDAZOLAM HCL 5 MG/5 ML VIAL ONE (13:00)
--- NOTE | 2016-08-13 13:22 | HHI.GIFU ---
Subjective Remarks S/P PEG placement, tolerated well and difficulties with feeding. Objective Vitals I&O Vital Signs Date Time Temp Pulse Resp B/P Pulse Ox O2 Delivery O2 Flow Rate FiO2 08/13/16 10:00 90 08/13/16 08:37 96 T-piece 6.00 40 08/13/16 08:00 98.3 90 37 166/77 94 08/13/16 08:00 90 08/13/16 07:00 97 T-Piece 40 08/13/16 06:00 95 08/13/16 04:00 94 08/13/16 04:00 98.8 94 24 167/69 97 08/13/16 02:00 74 08/13/16 01:00 98 T-piece 6.00 40 08/13/16 00:00 88 08/13/16 00:00 98.5 88 25 155/65 99 08/12/16 22:00 89 08/12/16 20:00 98.9 92 19 146/66 100 08/12/16 20:00 95 08/12/16 20:00 T-Piece 40 08/12/16 19:35 100 T-piece 40 08/12/16 18:00 94 08/12/16 16:00 98.5 86 21 140/70 100 08/12/16 16:00 86 08/12/16 14:00 81 I/O 08/12/16 08/12/16 08/12/16 08/13/16 08/13/16 08/13/16 07:00 15:00 23:00 07:00 15:00 23:00 Intake Total 180 ml 100 ml 90 ml 211 ml Output Total 300 ml 2675 ml 125 ml 300 ml Balance -120 ml -2575 ml -35 ml -89 ml Intake IV Total 150 ml 0 ml Tube Feeding 0 ml 0 ml 91 ml Tube Irrigant 100 ml Other 30 ml 90 ml 120 ml Output Urine Total 300 ml 175 ml 125 ml 300 ml Hemodialysis 2500 ml # Bowel Movements 2 3 0 Laboratory Laboratory Tests Test 08/13/16 04:09 White Blood Count 6.1 Red Blood Count 2.74 Hemoglobin 8.2 Hematocrit 24.8 Mean Corpuscular Volume 90.6 Mean Corpuscular Hemoglobin 29.9 Mean Corpuscular Hemoglobin 33.0 Concent Red Cell Distribution Width 13.8 Platelet Count 285 Mean Platelet Volume 8.3 Prothrombin Time 14.1 Prothromb Time International 1.3 Ratio Sodium Level 137 Potassium Level 3.4 Chloride Level 98 Carbon Dioxide Level 28.7 Anion Gap 10 Blood Urea Nitrogen 44 Creatinine 3.65 Estimat Glomerular Filtration 17 Rate Random Glucose 122 Calcium Level 8.2 Physical Exam HEENT: NG tube NECK: Trach in place CHEST: Chest is clear to auscultation and percussion. CARDIAC: Regular rate and rhythm with no murmur gallop or rubs. ABDOMEN: PEG site clean EXT; No edema Assessment and Plan Plan - Dysphagia/ENF- S/P PEG placement, feeding tolerated well - Diabetes with neuropathy and nephropathy, hypertension, dyslipidemia, chronic pain syndrome, history of DVT/PE on chronic anticoagulation, peripheral vascular disease with history of AAA, and osteoporosis who is here for evaluation of acute diarrhea, chills and hypoglycemia and found to be septic with strep bacteremia, pneumonia and developed acute hypoxemic respiratory failure. He was intubated and failed C-pap trials, he is s/p trach. . Plan: - Follow post PEG orders and care - TF as before - Resume Heparin as per primary team - Will sign off, please notify us if needed. Julienne Carrasco MD August 13, 2016 13:22
--- NOTE | 2016-08-13 14:40 | PD.RAD ---
Post Procedure Progress Note Pre Procedure Diagnosis: (1) Acute kidney injury Post Procedure Diagnosis: (1) Acute kidney injury Procedure Date: August 13, 2016 Supervising Radiologist: Dakota Castanon Proceduralist/Assist: Holly Salamanca, RT(R)(CV), Eugenia Hearn RT(R) Estimated blood loss: <5 ml Anesthesia: Conscious Sedation Plan of Activity Patient to Unit: Nursing Unit Patient Condition: Good Additional Comments: patent right IJ. Placed 15F 19cm HD cath See PACS Report for procedural detail/treatment Dakota Castanon MD August 13, 2016 14:39
[2016-08-13] MEDS ORDERED: SODIUM CHLORIDE 0.9% FLUSH 10 ML FLUSH IVF PRN (14:45)
[2016-08-13] MEDS ORDERED: HEPARIN SODIUM - IV 2,000 UNITS/2 ML VIAL IV FLUSH PRN (14:45)
--- NOTE | 2016-08-13 15:45 | RADRPT ---
EXAM DATE/TIME: 08/13/2016 13:12 [facility] COMPARISON: No previous studies available for comparison. INDICATIONS : Patient with history of chronic kidney disease in need of tunnelled dialysis catheter placement. MEDICAL HISTORY : Diabetes, HTN, Ischemic heart disease, Peripheral neuropathy, DVT/PE on chronic anticoagulation, HLD, PVD, Osteoporosis, Seizures, CHF, GERD, Renal failure SURGICAL HISTORY : Appendectomy, IVC Filter, Trach, Dialysis catheter placement ENCOUNTER: Subsequent ACUITY: 3 weeks PAIN SCORE: Nonresponsive. FLUORO TIME: 0.1 minutes IMAGE SERIES: 0 SEDATION TIME: 20 minutes ACCESS: Right internal jugular vein SEDATION: 1.) 2 mg midazolam (Versed) IV 2.) 100 mcg fentanyl (Sublimaze) IV Prophylactic antibiotics were administered with appropriate pre-procedure timing. Vancomycin within 2 hours of procedure, Ancef (or alternative) within 1 hour of procedure. DEVICE: 1. 15 [place] dual lumen 19 cm Saxena II Plus catheter PROCEDURE : 1. Ultrasound-guided venipuncture. 2. PermaCath placement. 3. Conscious sedation with continuous EKG and oximetry monitoring. The risks, benefits and alternatives to the procedure were explained and verbal and written consent w as obtained. The site was prepped in sterile fashion. Full sterile technique was used, including ca p, mask, sterile gloves and gown and a large sterile sheet. Hand hygiene and 2% chlorhexidine and/or betadine/alcohol prep was utilized per protocol for cutaneous antisepsis. The skin and subcutaneous tissues were infiltrated with local anesthetic solution. With ultrasound and fluoroscopic guidance a dermatotomy was created over the prescribed vein. A micr opuncture set was used to access the targeted vein and serial dilatation was performed to accept the prescribed length catheter. A subcutaneous tunnel was created in a retrograde fashion the catheter w as pulled through the tunnel. The catheter was flushed and assembled and locked with heparin. The c atheter was sutured in place. Conscious sedation was performed with the prescribed dosages and duration as above in the presence of an independent trained radiology nurse to assist in the monitoring of the patient. EKG and oximetry remained stable throughout the procedure. The patient tolerated the procedure well and there were n o complications. The patient was sent to post anesthesia recovery in stable condition. CONCLUSION: Uncomplicated PermaCath placement as above. Dakota Castanon MD on August 13, 2016 at 15:43 Board Certified Radiologist. This report was verified electronically.
--- NOTE | 2016-08-13 15:45 | RADRPT ---
EXAM DATE/TIME: 08/13/2016 00:00 [facility] COMPARISON: No previous studies available for comparison. INDICATIONS : Patient with history of chronic kidney disease in need of dialysis catheter removal. MEDICAL HISTORY : Diabetes, HTN, Ischemic heart disease, Peripheral neuropathy, DVT/PE on chronic anticoagulation, HLD, PVD, Osteoporosis, Seizures, CHF, GERD, Renal failure SURGICAL HISTORY : Appendectomy, IVC Filter, Trach, Dialysis catheter placement ENCOUNTER: Subsequent ACUITY: 3 weeks PAIN SCORE: Nonresponsive. IMAGE SERIES: 0 PROCEDURE : 1. Temporary central venous catheter removal. The prescribed catheter was removed intact and hemostasis was achieved with direct pressure. The sit e was dressed appropriately. The patient tolerated the procedure well. CONCLUSION: Uncomplicated catheter removal. Dakota Castanon MD on August 13, 2016 at 15:42 Board Certified Radiologist. This report was verified electronically.
[2016-08-13] MEDS: MELATONIN 5 MG TAB PO SCH (21:55)
[2016-08-13] MEDS: APIXABAN 2.5 MG TABLET PO SCH (21:55)
[2016-08-14] VITALS (15 sets, daily range): BP systolic 111–160; BP diastolic 56–73; PULSE 79–98; RESP 20–26; TEMP 98.9–100; O2SAT 93–98
[2016-08-14] MEDS: METOCLOPRAMIDE HCL 10 MG/2 ML VIAL IV PUSH SCH ×3 (00:57→18:12)
[2016-08-14] MEDS: CHLORHEXIDINE GLUCONATE 2 % 1 PACK (2 CLOTHS) TOP SCH (04:04)
--- NOTE | 2016-08-14 04:45 | RADRPT ---
EXAM DATE/TIME: 08/14/2016 02:27 [facility] COMPARISON: CHEST SINGLE AP, August 07, 2016, 18:14. INDICATIONS : Shortness of breath. MEDICAL HISTORY : Diabetes, HTN, Ischemic heart disease, CHF, Renal failure. SURGICAL HISTORY : Appendectomy, IVC Filter, Trach, Dialysis catheter placement. ENCOUNTER: Subsequent ACUITY: 1 week PAIN SCORE: Non-responsive. LOCATION: Bilateral chest FINDINGS: Tracheostomy is stable. A right chest dialysis permacath is noted in good position. The hazy bilatera l pleuroparenchymal opacities are grossly unchanged. Cardiac contours are stable. CONCLUSION: Normal exchange of Vas-Cath for dialysis permacath. Otherwise stable chest Berlin Guillermo MD on August 14, 2016 at 4:43 Board Certified Radiologist. This report was verified electronically.
[2016-08-14 04:55] LABS: HEMATOCRIT 25.8 % (39.0-51.0); MEAN CELL VOLUME 90.4 FL (80.0-100.0); MEAN CORPUSCULAR HEMOGLOBIN 29.2 PG (27.0-34.0); MEAN CORPUSCULAR HGB CONC 32.2 % (32.0-36.0); PLATELET COUNT 283 TH/MM3 (150-450); RED BLOOD COUNT 2.86 MIL/MM3 (4.50-5.90); RED CELL DISTRIBUTION WIDTH 13.6 % (11.6-17.2); REVIEW FLAG FINAL; WHITE BLOOD COUNT 6.3 TH/MM3 (4.0-11.0)
[2016-08-14 05:33] LABS: BICARBONATE 27.7 MEQ/L (21.0-32.0); POTASSIUM 3.6 MEQ/L (3.5-5.1)
[2016-08-14] MEDS: INSULIN ASPART SUPPLEMENTAL SCALE SQ SCH ×4 (06:15→17:30)
[2016-08-14] MEDS: CHLORHEXIDINE 0.12% (ORAL KIT) 15 ML CUP MT SCH ×2 (08:00→20:00)
[2016-08-14] MEDS: SODIUM CHLORIDE 0.9% FLUSH 10 ML FLUSH IV FLUSH SCH ×2 (09:00→20:29)
[2016-08-14] MEDS: ASPIRIN 81 MG CHEW TAB CHEW SCH (09:00)
[2016-08-14] MEDS: INSULIN DETEMIR 100 UNITS/ML VIAL SQ SCH ×2 (09:00→20:36)
[2016-08-14] MEDS: SODIUM CHLORIDE 0.9% FLUSH 10 ML FLUSH IVF SCH (09:00)
[2016-08-14] MEDS: SENNOSIDES SYRUP 8.8 MG/5 ML CUP OG-TUBE SCH (09:00)
[2016-08-14] MEDS: LACTOBACILLUS ACIDOPHILUS TAB PO SCH ×3 (09:33→18:12)
[2016-08-14] MEDS: DOXAZOSIN MESYLATE 2 MG TAB PO SCH (09:33)
[2016-08-14] MEDS: CARVEDILOL 12.5 MG TAB PO SCH ×2 (09:33→20:29)
[2016-08-14] MEDS: DOCUSATE SODIUM 100 MG CAP PO SCH ×2 (09:33→20:29)
[2016-08-14] MEDS: PANTOPRAZOLE SODIUM 40 MG VIAL IV SCH (09:34)
[2016-08-14] MEDS: LEVOFLOXACIN 250 MG TAB PO SCH (09:34)
[2016-08-14] MEDS: APIXABAN 2.5 MG TABLET PO SCH ×2 (09:34→20:29)
[2016-08-14] MEDS: ACETAMINOPHEN/HYDROcodone 325 MG/5 MG TAB PO PRN ×2 (09:49→14:35)
--- NOTE | 2016-08-14 11:16 | HHI.NPPN ---
Subjective History of Present Illness 71-year-old male with past medical history of diabetes mellitus, hypertension, ischemic heart disease, peripheral neuropathy, chronic kidney disease, history of deep vein thrombosis, hyperlipidemia was brought to the hospital because of generalized weakness, confusion and vomiting and diarrhea. I was called to see the patient because of elevated BUN and creatinine. The patient has history of acute kidney injury in the past and chronic kidney disease. His creatinine was around 1.2 to 1.4, this was in 2012. Additional Remarks Patient is alert, now on HD, with T-Piece, not in distress. Review of Systems General Constitutional: Fatigue Respiratory Lungs: SOB, Cough, Sputum, Wheeze Objective Data Data 08/13/16 08/14/16 19:00 07:00 Intake Total 0 ml 512 ml Output Total 275 ml 425 ml Balance -275 ml 87 ml Intake IV Total 0 ml 0 ml Tube Feeding 0 ml 312 ml Tube Irrigant 200 ml Other 0 ml Output Urine Total 275 ml 425 ml # Bowel Movements 0 0 Vital Signs Date Time Temp Pulse Resp B/P Pulse Ox O2 Delivery O2 Flow Rate FiO2 08/14/16 06:00 98 08/14/16 04:00 99.4 90 22 136/62 94 08/14/16 04:00 90 08/14/16 02:00 88 08/14/16 00:00 88 08/14/16 00:00 100.0 88 20 142/65 95 08/13/16 22:00 98 08/13/16 21:01 95 T-piece 40 08/13/16 20:00 99.4 96 19 161/74 94 08/13/16 20:00 96 08/13/16 19:00 95 T-Piece 6.00 40 08/13/16 18:00 90 08/13/16 16:00 93 08/13/16 16:00 99.5 96 33 147/70 94 -: 08/14/16 0417 08/14/16416 Physical Exam General Appearance: No Acute Distress, Anxious Eyes Eye Exam: Pupils Equal Throat Throat Exam: Oral Mucosa Ne[place]art & Moist Neck Neck Exam: Neck Supple Pulmonary Resp Exam: Rhonchi, Decreased Bases, Diminished Breath Sounds, Poor Inspiratory Effort Cardiology CV Exam: Regular, Normal Sinus Rhythm Gastrointestinal/Abdomen GI Exam: Soft, Non-Tender, Bowel Sounds Present Extremeties Extremities Exam: Trace Edema Neurologic Neuro Exam: Alert, Awake Psychiatric Psych Exam: Appropriate Responses Assessment/Plan Assessment Summary: ADALID/Acute Renal Failure Electrolyte Assessment: Metabolic Acidosis Problem List: (1) Diabetes mellitus with neuropathy (2) Leukocytosis (3) Peripheral vascular disease (4) Severe sepsis with acute organ dysfunction (5) History of DVT (deep vein thrombosis) (6) Hypoxia (7) Acidosis (8) Lactic acidosis Plan Patient has some improvement in the urine out put. BP is occ. elevated due to agitation, on Amlodipine and Doxazosin. sputum c/s results noted Pseudomonas, seen by ID. On Levaquin, ID following.l. Still has elevated Creatinine. PermCath done, now on HD. Removing 2-3 liters. Possible transfer to [facility]. Problem Qualifiers (1) Diabetes mellitus with neuropathy: Qualified Code: E11.40 - Type 2 diabetes mellitus with diabetic neuropathy, unspecified shelter insulin use status (2) Leukocytosis: Qualified Code: D72.829 - Leukocytosis, unspecified type Frank Magana MD Aug 14, 2016 11:16
[2016-08-14] MEDS: GENTAMICIN SULFATE (DIALYSIS USE ONLY) 20 MG/2 ML VIAL OTHER PRN (12:24)
[2016-08-14] MEDS: HEPARIN SODIUM - IV 10,000 UNITS/10 ML VIAL OTHER PRN (12:25)
--- NOTE | 2016-08-14 12:32 | HHI.CCPN ---
Subjective Remarks/Hospital Course 71-year-old male. Date of admission 07/20/2016. Past records includes diabetes with neuropathy and nephropathy, hypertension, dyslipidemia, chronic pain syndrome, history of DVT/PE on chronic anticoagulation, peripheral vascular disease with history of AAA, and osteoporosis. Patient recently [place] 07/06/16. Patient sick contacts would include neighbor with "vital illness. Patient is to [facility] today with acute onset of diarrhea, hypoglycemia and chills. Upon arrival, patient was noted be acutely hypoxic and required a nonrebreather mask. Patient denies pleuritic chest pain , abdominal pain but positive for nausea and diarrhea. CT chest revealed bilateral lower lobe scarring, bilateral adrenal adenomas a nonspecific bowel gas pattern. Chest x-ray revealed no significant findings. Lab work included a lactic acid elevated 7.7, white blood cell count 12,000 in acute kidney injury with a creatinine of 3.0. Baseline around 1.5-2. Troponin was slightly elevated 0.14. EKG is currently pending. Upon arrival to [facility], patient was extremely mottled with rates in the 40s. Patient was emergently intubated please see note and a left IJ central line was placed. CT of the head, abdomen and pelvis currently pending. 07/21 Patient is sedated with Diprivan and Fentanyl and intubated. On Levophed 22 mics, Vasopressin and bicarb drip. BC from 07/20: GPC all 4 bottles. 07/22 Patient remains sedated and intubated On Levophed 22 mics, vasopressin and bicarb drip. Awaiting to start CVVHD today 07/23: Remains sedated, orally intubated on mech ventilation. On Levophed 15 mics per minute and low-dose vasopressin for pressor support. On CRRT. 07/24: Remains sedated, orally intubated on mechanical ventilation. On Levophed 7 mics per minute and low-dose vasopressin for pressor support. CRRT was stopped at 1:30 AM due to Air in system and has now been resumed. 2 Amps of bicarbonate given for metabolic acidosis while CRRT held and bicarbonate drip was started back yesterday 07/25: Remains critically ill, on CVVH. Levoped 6 mics per minute. White count has normalized, making slight amount of urine. Showing some signs of progress 07/26: Remains sedated, orally intubated on mechanical ventilation. Remains on Levophed 3 mics per minute, vasopressin 0.03 mics per minute. CRRT continues. 07/27: Remains sedated, orally intubated on mechanical ventilation. Remains on Levophed 2 mics per minute, vasopressin 0.03 mics per minute. On CRRT. 07/28: Remains sedated, orally intubated on mechanical ventilation. Off Levophed. Remains on vasopressin. CRRT clotted off this morning and is on hold currently. Nephrology to decide regarding regular hemodialysis as patient is now off Levophed. 07/29: Sedated, arousable, orally intubated on mechanical ventilation. Off Levophed and vasopressin drips. To be initiated on hemodialysis today. Tolerating tube feeds. 07/30: Sedated, arousable, orally intubated on mechanical ventilation. Hemoglobin dropped to 6.9 this morning no evidence of melena or rectal bleeding noted. Stat CT abdomen pelvis did not reveal any evidence of retroperitoneal hematoma. Patient is maintaining his blood pressure and has not had any hypotension. 2 units PRBCs ordered this morning. 07/31: Sedated, arousable, orally intubated on mechanical ventilation. Underwent hemodialysis this morning. 08/01: Arousable off sedation, weakly grasps on command and wiggles toes. Remains orally intubated on mechanical ventilation. Tolerating tube feeds. 08/02: Awake off sedation, orally intubated on mechanical ventilation. Tolerating tube feeds. Awaiting hemodialysis today. 08/03: Patient failed extubation on 08/02 and required reintubation due to inability to mobilize secretions and worsening hypoxia about 8 hours following extubation. Sedated, orally intubated on mechanical ventilation. Started on Mucomyst and percussion therapy to mobilize secretions. 08/04: Remains sedated, orally intubated on mechanical ventilation. Significant pulmonary secretions being suctioned out following initiation of Mucomyst and percussion therapy per overnight [employer]. Tolerating tube feeds. 08/05: Arousable off sedation, orally intubated on mechanical ventilation. Underwent hemodialysis today. Still has copious pulmonary secretions though these are being mobilized with Mucomyst and percussion therapy. Tolerating tube feeds. On C Pap trial to decide extubation. If he fails extubation or is unable to get extubated today will consider for tracheostomy tomorrow. 08/06: failing CPAP trials for tachypnea. 08/07: mental status improving. BP very well controlled off cardene. plan for trach today. 08/08: trach yesterday. now doing very well. on minimal PSV settings. plan for PEG on thursday. family at bedside and very happy with his improvements. patient smiled today for the first time in a few days. 08/09: tolerated 30 minutes of t-piece yesterday. rested on rate overnight. back on PSV this morning. interactive. doing well. denies complaints. plan for PEG thursday. 08/10: tolerated t-piece x 3 hours today. interactive and doing well in a chair today. still plans for PEG tomorrow. replaced NGT today, and patient has no gag or swallow strength at all per nursing. urinary retention and armstrong catheter replaced overnight. 08/11: continues to improve from a pulmonary standpoint. plan is for PEG today or tomorrow. working on placement. 08/12: doing well. PEG planned for noon. LTAC placement authorization in progress. from my standpoint, after PEG, stable for transfer to LTAC. 08/13: no overnight issues, permacath planned for placement today by IR, medically optimized for transfer to LTAC 08/14: Position right permacath is good. Ready for LTAC [facility]. Objective Vital Signs Date Time Temp Pulse Resp B/P Pulse Ox O2 Delivery O2 Flow Rate FiO2 08/14/16 10:00 96 08/14/16 08:00 99.8 26 160/73 96 08/14/16 07:00 T-Piece 6.00 40 Intake and Output 08/13/16 08/13/16 08/14/16 08:00 16:00 00:00 Intake Total 211 ml 0 ml 194 ml Output Total 300 ml 275 ml 300 ml Balance -89 ml -275 ml -106 ml Result Diagram: 08/14/16 0417 08/14/16 0417 Imaging Last 48 hours Impressions Chest X-Ray 08/02/16 1421 Signed Impressions: Service Date/Time: Tuesday, August 02, 2016 14:42 - CONCLUSION: No significant interval change in bilateral pulmonary opacity. Castillo Roldan MD Last 48 hours Impressions Chest X-Ray 08/02/16 0600 Signed Impressions: Service Date/Time: Tuesday, August 02, 2016 05:47 - CONCLUSION: 1. Support apparatus in satisfactory position. Bilateral mostly basilar airspace disease and effusions similar to July 30. Jose Martin Valderrama MD Last 24 hours Impressions Chest X-Ray 07/28/16 0600 Signed Impressions: Service Date/Time: Thursday, July 28, 2016 03:09 - CONCLUSION: No significant change. Hazy opacity remains in both lungs most consistent with congestive heart failure. Alonzo Bradshaw MD Last 24 hours Impressions Chest X-Ray 07/26/16 0600 Signed Impressions: Service Date/Time: Tuesday, July 26, 2016 04:56 - CONCLUSION: No significant change. Jovan Aldridge MD Last 48 hours Impressions Abdomen X-Ray 07/24/16 0749 Signed Impressions: Service Date/Time: July 08:28 - CONCLUSION: Air-filled bowel loops centrally but no obstruction seen. Uli Atkins MD Chest X-Ray 07/24/16 0600 Signed Impressions: Service Date/Time: July 05:36 - CONCLUSION: Unchanged bibasilar infiltrates. Omer Cheng Jr., MD Last Impressions Chest X-Ray 07/21/16 0000 Signed Impressions: Service Date/Time: Thursday, July 21, 2016 22:13 - CONCLUSION: Satisfactory central line positioning. Worsening aeration. Berlin Guillermo MD Renal Ultrasound 07/20/16 Signed Impressions: Service Date/Time: Wednesday, July 20, 2016 14:32 - CONCLUSION: 1. No acute findings. Renal ultrasound unremarkable. Bladder was not well-visualized. Jose Martin Valderrama MD Lower Extremity Ultrasound 07/20/16 Signed Impressions: Service Date/Time: Wednesday, July 20, 2016 14:39 - CONCLUSION: Negative exam with no evidence of deep venous thrombosis. Alonzo Bradshaw MD Head CT 07/20/16 Signed Impressions: Service Date/Time: Wednesday, July 20, 2016 18:21 - CONCLUSION: 1. No acute intracranial abnormalities. Mild mucosal thickening of the ethmoid air cells. Jose Martin Valderrama MD Chest CT 07/20/16 Signed Impressions: Service Date/Time: Wednesday, July 20, 2016 11:28 - CONCLUSION: 1. Chronic scarring in the lung bases left greater than right. 2. No focal consolidation. 3. Bilateral adrenal masses left greater than right most consistent with adenomas. 4. Nonspecific bowel gas pattern noted in the upper abdomen with air-fluid levels in the small bowel. Alonzo Brdashaw MD Abdomen/Pelvis CT 07/20/16 0000 Signed Impressions: Service Date/Time: Wednesday, July 20, 2016 18:24 - CONCLUSION: 1. Lower abdominal ventral midline hernia containing loop of small bowel. Small bowel is mildly distended somewhat diffusely with fluid and air. Cannot exclude a low grade partial bowel obstruction in the area of herniation. 2. No abnormal fluid collections to suggest abscess. No free air or free fluid. 3. Basilar and dependent lung consolidation, left greater than right. Pneumonia could have this appearance. Small left effusion. 4. NG tip in stomach. Inferior vena cava filter present. Armstrong catheter in bladder. Jsoe Martin Valderrama MD Objective Remarks GENERAL: Patient is 71 yo elderly male, trached. sitting in bed, on psv today. SKIN: Warm and dry. HEAD: Normocephalic. EYES: Pallor present. No scleral icterus. No injection or drainage. NECK: trachea midline. No JVD , tracheostomy in place, minimal sanguinous drainage around trach. CARDIOVASCULAR: Regular rate and rhythm without murmurs, gallops, or rubs. RESPIRATORY: trached. unlabored. equal chest rise. GASTROINTESTINAL: Abdomen soft, non-tender, nondistended. Bowel sounds sluggish Neuro: Arousable off sedation, following commands. Moves both upper extremities weakly and wiggles toes bilaterally. Extremities: Warm bilaterally, Bilateral edema A/P Assessment and Plan Neuro/Psych: Peripheral neuropathy Chronic pain syndrome Goal RASS 1 melatonin QHS for sleep, zyprexa prn if not asleep by 2300. 07/20 CT brain: No acute intracranial abnormalities. CV: Elevated troponin- resolved. Hypertension- resolved. Dyslipidemia Lactic acidosis- resolved. Septic shock- resolved. Peripheral vascular disease History of AAA Off Stress dose steroids- Hydrocortisone decreased to 50mg daily on 07/29 and stopped on 07/31 Continue with ASA daily Echo showed EF 35-40% Norvasc 10mg po daily Coreg 12.5mg po q12h Hydralazine and labetalol when necessary to keep SBP less than 160 Resp: Acute-->chronic hypoxemic respiratory failure Tobaccoism s/p trach 08/[address] Barrera/Dr. Upton Comfortable and TPs for last 48 hours in no acute distress Duo nebs when necessary CT chest 07/20 revealed left greater than right basilar scarring. Bilateral adrenal adenomas. No focal consolidation OOB to stretcher chair daily. GI: Acute protein calorie malnutrition - moderate Tolerating tube feeds- Nepro with goal rate 40ml/hr. Reglan 5 mg IV every 8 hours Protonix for GI prophylaxis Colace/as needed Senokot for bowel regimen CT abdomen reviewed. Gen surgery- Dr Roman- no surgical interventions. PEG placement by GI yesterday 08/12 : Urinary Retention Strict intake output, monitor and replete electrolytes, follow BUN/creatinine. Started CRRT on 07/22, being followed by nephrology Dr. Magana. CRRT on hold since 07/28. Switched to hemodialysis on 07/29. Renal US: No acute findings --Cardura 2mg po daily, in 48h Endo: Diabetes mellitus with nephropathy and neuropathy Bilateral adrenal adenoma Hyperglycemia Decreased Levemir to 10 units subcutaneously every 12 hourly on 07/31. On high dose sliding scale insulin on 07/29 for better glycemic control. Off steroids. Heme: Leukocytosis- resolved. Thrombocytopenia- resolved. 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 HIT screen negative. Platelets have normalized. Started heparin 5000 units subcutaneously every 12 hourly on 07/29, increased to 5000 units subcutaneously every 8 hourly on 07/31. Transfused 2 units PRBCs for drop in hemoglobin to 6.9 on 07/30. CT abdomen pelvis with no evidence of retroperitoneal hematoma. Most likely secondary to blood loss with CRRT regarding multiple times. Maintaining H&H. Advanced to full anticoagulation with heparin GTT on 08/01, will plan to transition to Coumadin. ID: Strep Bacteremia Pneumonia- pseudomonas Continue with abx per ID - Unasyn switched to cefepime on 07/31 per ID due to pseudomonas in sputum. ID planning to initiate tobramycin nebulizer treatments. ID switched cefepime to Levaquin 08/08 Clindamycin stopped 07/29, vanco x 1 dose on admission. Pertinent cultures BC 07/20- GPC, Group A Beta strep Urine cx 07/20 : neg Strep pneumonia nad Legionella urinary Ag negative Follow up on Sputum cx, BC 07/21, 07/22- NGTD 07/30 Sputum c/s with pseudomonas 08/03 sputum with pseudomonas MSK: Osteoarthritis Holding vitamin D 1000 units by mouth daily. Access - piv -Right IJ vascath placed 07/22 - Tunnelled VasCath placed 08/14. Prophylaxis - GI - Protonix - DVT - SCD/heparin SQ. Heparin gtt 08/01 for full anticoagulation. - Doppler US LE negative for DVT Palliative care is following. stable for transfer to LTAC after PEG placement. Benjamin Upton MD Aug 14, 2016 12:32
--- NOTE | 2016-08-14 16:38 | HHI.IDPN ---
Subjective Subjective Remarks 71-year-old male admitted to the hospital for acute onset of diarrhea, chills and hypoglycemia. Patient apparently working in the yard July 18 and July 19. He was doing okay except for complaints on his lower extremity which is apparently chronic and related to his peripheral vascular disease. That night, the noted that the patient was breathing hard. She asked the patient and he stated that he is not short of breath. He has not complained of any sore throat, has not been congested, and has eaten without any problem. He has not had any urinary complaints. That night apparently the couldn't sleep, and around 4 :00 in the morning the patient woke up and stated that he wanted to go to the bathroom. Patient didn't make it, and had stool incontinence. He was noted to have some chills, and his blood sugars were low. He also had episode of vomiting. Patient was taken to the hospital, and since admission he is developed profound hypotension, and acidosis. He ended up getting intubated, and currently on Levophed and vasopressin. His white count is elevated, lactic acid elevated, and his creatinine is also quite elevated. His urine output has been low. Cultures done in the emergency room, are now reported as growing group A strep. Notes reviewed D/W RN Clinically doing well from ID standpoint Had HD today According to the , patient has been accepted at [facility] Doing well on T-piece has trach and PEG in room states patient gets frustrated with communications Antibiotics Levaquin Vanco Tobra nebs Lines [facility] - 07/22 Past Medical History Reviewed Allergies: Coded Allergies: No Known Allergies (Verified , 07/20/16) Objective . Vital Signs Date Time Temp Pulse Resp B/P Pulse Ox O2 Delivery O2 Flow Rate FiO2 08/14/16 16:00 93 08/14/16 14:00 84 08/14/16 13:52 98 T-piece 6.00 40 08/14/16 12:52 98.9 84 24 111/56 98 08/14/16 12:00 84 08/14/16 10:00 96 08/14/16 08:00 95 08/14/16 08:00 99.8 96 26 160/73 96 08/14/16 07:00 96 T-Piece 6.00 40 08/14/16 06:00 98 08/14/16 04:00 99.4 90 22 136/62 94 08/14/16 04:00 90 08/14/16 02:00 88 08/14/16 00:00 88 08/14/16 00:00 100.0 88 20 142/65 95 08/13/16 22:00 98 08/13/16 21:01 95 T-piece 40 08/13/16 20:00 99.4 96 19 161/74 94 08/13/16 20:00 96 08/13/16 19:00 95 T-Piece 6.00 40 08/13/16 18:00 90 08/13/16 08/13/16 08/14/16 15:00 23:00 07:00 Intake Total 0 ml 194 ml 318 ml Output Total 275 ml 300 ml 125 ml Balance -275 ml -106 ml 193 ml Intake IV Total 0 ml 0 ml 0 ml Tube Feeding 0 ml 94 ml 218 ml Tube Irrigant 100 ml 100 ml Other 0 ml Output Urine Total 275 ml 300 ml 125 ml # Bowel Movements 0 0 0 . Laboratory Tests Test 08/13/16 08/14/16 04:09 04:17 White Blood Count 6.1 TH/MM3 6.3 TH/MM3 Red Blood Count 2.74 MIL/MM3 2.86 MIL/MM3 Hemoglobin 8.2 GM/DL 8.3 GM/DL Hematocrit 24.8 % 25.8 % Mean Corpuscular Volume 90.6 FL 90.4 FL Mean Corpuscular Hemoglobin 29.9 PG 29.2 PG Mean Corpuscular Hemoglobin 33.0 % 32.2 % Concent Red Cell Distribution Width 13.8 % 13.6 % Platelet Count 285 TH/MM3 283 TH/MM3 Mean Platelet Volume 8.3 FL 8.2 FL Laboratory Tests Test 08/13/16 08/14/16 04:09 04:17 Sodium Level 137 MEQ/L 139 MEQ/L Potassium Level 3.4 MEQ/L 3.6 MEQ/L Chloride Level 98 MEQ/L 101 MEQ/L Carbon Dioxide Level 28.7 MEQ/L 27.7 MEQ/L Anion Gap 10 MEQ/L 10 MEQ/L Blood Urea Nitrogen 44 MG/DL 63 MG/DL Creatinine 3.65 MG/DL 4.54 MG/DL Estimat Glomerular Filtration 17 ML/MIN 13 ML/MIN Rate Random Glucose 122 MG/DL 117 MG/DL Calcium Level 8.2 MG/DL 8.3 MG/DL Imaging Last 72 hours Impressions Chest X-Ray 08/07/16 0000 Signed Impressions: Service Date/Time: July 18:14 - CONCLUSION: 1. New tracheostomy, appears normally positioned. 2. Unchanged right IJ central venous catheter and nasogastric tube 3. Worsening consolidation and effusions of both bases. Berlin Reynoso MD Chest X-Ray 08/05/16 0000 Signed Impressions: Service Date/Time: Friday, August 05, 2016 12:38 - CONCLUSION: Mild improvement of bilateral airspace disease. Small right pleural effusion. Uli Atkins MD Chest X-Ray 08/02/16 1421 Signed Impressions: Service Date/Time: Tuesday, August 02, 2016 14:42 - CONCLUSION: No significant interval change in bilateral pulmonary opacity. Castillo Roldan MD Chest X-Ray 08/02/16 0600 Signed Impressions: Service Date/Time: Tuesday, August 02, 2016 05:47 - CONCLUSION: 1. Support apparatus in satisfactory position. Bilateral mostly basilar airspace disease and effusions similar to July 30. Jose Martin Valderrama MD Chest X-Ray 08/02/16 1421 Signed Impressions: Service Date/Time: Tuesday, August 02, 2016 14:42 - CONCLUSION: No significant interval change in bilateral pulmonary opacity. Castillo Roldan MD Abdomen/Pelvis CT 07/30/16 0000 Signed Impressions: Service Date/Time: Saturday, July 30, 2016 07:57 - CONCLUSION: 1. No retroperitoneal hematoma. 2. Bibasilar pulmonary consolidations with small effusions. 3. Chronic pancreatitis. No acute inflammation observed. 4. 2 ventral hernias. 5. IVC filter. 6. 3.6 x 3.1 cm AAA. Omer Cheng Jr., MD Abdomen X-Ray 07/24/16 0749 Signed Impressions: Service Date/Time: July 08:28 - CONCLUSION: Air-filled bowel loops centrally but no obstruction seen. Uli Atkins MD Renal Ultrasound 07/20/16 0000 Signed Impressions: Service Date/Time: Wednesday, July 20, 2016 14:32 - CONCLUSION: 1. No acute findings. Renal ultrasound unremarkable. Bladder was not well-visualized. Jose Martin Valderrama MD Lower Extremity Ultrasound 07/20/16 Signed Impressions: Service Date/Time: Wednesday, July 20, 2016 14:39 - CONCLUSION: Negative exam with no evidence of deep venous thrombosis. Alonzo Bradshaw MD Head CT 07/20/16 Signed Impressions: Service Date/Time: Wednesday, July 20, 2016 18:21 - CONCLUSION: 1. No acute intracranial abnormalities. Mild mucosal thickening of the ethmoid air cells. Jose Martin Valderrama MD Chest CT 07/20/16 Signed Impressions: Service Date/Time: Wednesday, July 20, 2016 11:28 - CONCLUSION: 1. Chronic scarring in the lung bases left greater than right. 2. No focal consolidation. 3. Bilateral adrenal masses left greater than right most consistent with adenomas. 4. Nonspecific bowel gas pattern noted in the upper abdomen with air-fluid levels in the small bowel. Alonzo Bradshaw MD Chest X-Ray 08/02/16599 Signed Impressions: Service Date/Time: Tuesday, August 02, 2016 05:47 - CONCLUSION: 1. Support apparatus in satisfactory position. Bilateral mostly basilar airspace disease and effusions similar to July 30. Jose Martin Valderrama MD Chest X-Ray 07/30/16599 Signed Impressions: Service Date/Time: Saturday, July 30, 2016 05:07 - CONCLUSION: 1. Interval increase in hazy opacity in the right lung. 2. Bilateral effusions are again noted with cardiomegaly and the findings are most characteristic of congestive heart failure. Alonzo Bradshaw MD Abdomen/Pelvis CT 07/30/16 Signed Impressions: Service Date/Time: Saturday, July 30, 2016 07:57 - CONCLUSION: 1. No retroperitoneal hematoma. 2. Bibasilar pulmonary consolidations with small effusions. 3. Chronic pancreatitis. No acute inflammation observed. 4. 2 ventral hernias. 5. IVC filter. 6. 3.6 x 3.1 cm AAA. Omer Cheng Jr., MD Chest X-Ray 07/28/16599 Signed Impressions: Service Date/Time: Thursday, July 28, 2016 03:09 - CONCLUSION: No significant change. Hazy opacity remains in both lungs most consistent with congestive heart failure. Alonzo Bradshaw MD Chest X-Ray 5/15/17 0600 Signed Impressions: Service Date/Time: Thursday, July 28, 2016 03:09 - CONCLUSION: No significant change. Hazy opacity remains in both lungs most consistent with congestive heart failure. Alonzo Bradshaw MD Abdomen X-Ray 07/24/16 0749 Signed Impressions: Service Date/Time: July 08:28 - CONCLUSION: Air-filled bowel loops centrally but no obstruction seen. Uli Atkins MD Renal Ultrasound 07/20/16 Signed Impressions: Service Date/Time: Wednesday, July 20, 2016 14:32 - CONCLUSION: 1. No acute findings. Renal ultrasound unremarkable. Bladder was not well-visualized. Jose Martin Valderrama MD Lower Extremity Ultrasound 07/20/16 Signed Impressions: Service Date/Time: Wednesday, July 20, 2016 14:39 - CONCLUSION: Negative exam with no evidence of deep venous thrombosis. Alonzo Bradshaw MD Head CT 07/20/16 Signed Impressions: Service Date/Time: Wednesday, July 20, 2016 18:21 - CONCLUSION: 1. No acute intracranial abnormalities. Mild mucosal thickening of the ethmoid air cells. Jose Martin Valderrama MD Chest CT 07/20/16 Signed Impressions: Service Date/Time: Wednesday, July 20, 2016 11:28 - CONCLUSION: 1. Chronic scarring in the lung bases left greater than right. 2. No focal consolidation. 3. Bilateral adrenal masses left greater than right most consistent with adenomas. 4. Nonspecific bowel gas pattern noted in the upper abdomen with air-fluid levels in the small bowel. Alonzo Bradshaw MD Abdomen/Pelvis CT 07/20/16 Signed Impressions: Service Date/Time: Wednesday, July 20, 2016 18:24 - CONCLUSION: 1. Lower abdominal ventral midline hernia containing loop of small bowel. Small bowel is mildly distended somewhat diffusely with fluid and air. Cannot exclude a low grade partial bowel obstruction in the area of herniation. 2. No abnormal fluid collections to suggest abscess. No free air or free fluid. 3. Basilar and dependent lung consolidation, left greater than right. Pneumonia could have this appearance. Small left effusion. 4. NG tip in stomach. Inferior vena cava filter present. Connelly catheter in bladder. Jose Martin Valderrama MD Physical Exam GENERAL: awake, following some commands, on T-piece, NAD SKIN: Cool and dry. No generalized rash. HEENT: Point Clear conjunctivae. No scleral icterus. No injection or drainage. Nose without bleeding, or purulent drainage. Has moist mucosa. NECK: Supple, nontender, no meningeal signs. Trach ok CARDIOVASCULAR: Regular rate and rhythm without murmurs, gallops, or rubs. RESPIRATORY: Coarse rhonchi GASTROINTESTINAL: Abdomen soft, globular, bowel sounds are present and normoactive. Not tender. No hepato-splenomegaly, or palpable masses. PEG ok MUSCULOSKELETAL: Extremities without clubbing, cyanosis, or edema. . Feet warm. No joint effusion, or edema noted. NEUROLOGICAL: Awake following all commands LINE: Line with no evidence of infection : Connelly in place, urine looks clear Assessment & Plan Remarks IMPRESSION Group A Strep sepsis, with shock, MOSF, present on admission, source is not established - ?primary bacteremia Respiratory failure PSAE PNA Renal failure, sp CVVHD Thrombocytopenia due to sepsis, no DIC - slowly improving Known DM, HTN, PVD, CAD Diarrhea, abx associated Fevers, resolved RECOMMENDATION Continue Levaquin and Vanco - end dates for Abx ordered in [id number] Clinically doing well from ID standpoint Spoke with He will hopefully go to [facility] today D/W RN ADDENDUM: D/W RN Patient has been accepted at [facility] Bed available but staffing an issue Patient is doing well from ID Abx and will be finishing his Abx in 2 days I will sign off Please call if with any other ID issue or concerns Ceci Niño MD Aug 14, 2016 16:38
[2016-08-14] MEDS: MELATONIN 5 MG TAB PO SCH (20:29)
[2016-08-15] VITALS (9 sets, daily range): BP systolic 124–146; BP diastolic 58–70; PULSE 79–88; RESP 18–30; TEMP 98.7–99.6; O2SAT 95–100
[2016-08-15] MEDS: ACETAMINOPHEN/HYDROcodone 325 MG/5 MG TAB PO PRN ×2 (00:08→06:32)
[2016-08-15] MEDS: METOCLOPRAMIDE HCL 10 MG/2 ML VIAL IV PUSH SCH ×2 (01:31→09:16)
[2016-08-15] MEDS: CHLORHEXIDINE GLUCONATE 2 % 1 PACK (2 CLOTHS) TOP SCH (04:00)
[2016-08-15] MEDS: INSULIN ASPART SUPPLEMENTAL SCALE SQ SCH ×3 (05:48→11:57)
[2016-08-15] MEDS: CHLORHEXIDINE 0.12% (ORAL KIT) 15 ML CUP MT SCH (08:00)
[2016-08-15] MEDS: SODIUM CHLORIDE 0.9% FLUSH 10 ML FLUSH IVF SCH (09:00)
[2016-08-15] MEDS: SODIUM CHLORIDE 0.9% FLUSH 10 ML FLUSH IV FLUSH SCH (09:00)
[2016-08-15] MEDS: INSULIN DETEMIR 100 UNITS/ML VIAL SQ SCH (09:15)
[2016-08-15] MEDS: APIXABAN 2.5 MG TABLET PO SCH (09:16)
[2016-08-15] MEDS: CARVEDILOL 12.5 MG TAB PO SCH (09:16)
[2016-08-15] MEDS: DOXAZOSIN MESYLATE 2 MG TAB PO SCH (09:16)
[2016-08-15] MEDS: ASPIRIN 81 MG CHEW TAB CHEW SCH (09:16)
[2016-08-15] MEDS: DOCUSATE SODIUM 100 MG CAP PO SCH (09:16)
[2016-08-15] MEDS: LACTOBACILLUS ACIDOPHILUS TAB PO SCH ×2 (09:16→13:00)
[2016-08-15] MEDS: LEVOFLOXACIN 250 MG TAB PO SCH (09:16)
[2016-08-15] MEDS: SENNOSIDES SYRUP 8.8 MG/5 ML CUP OG-TUBE SCH (09:16)
[2016-08-15] MEDS: PANTOPRAZOLE SODIUM 40 MG VIAL IV SCH (09:17)
--- NOTE | 2016-08-15 10:18 | HHI.CCPN ---
Subjective Remarks/Hospital Course 71-year-old male. Date of admission 07/20/2016. Past records includes diabetes with neuropathy and nephropathy, hypertension, dyslipidemia, chronic pain syndrome, history of DVT/PE on chronic anticoagulation, peripheral vascular disease with history of AAA, and osteoporosis. Patient recently [place] 07/06/16. Patient sick contacts would include neighbor with "vital illness. Patient is to [facility] today with acute onset of diarrhea, hypoglycemia and chills. Upon arrival, patient was noted be acutely hypoxic and required a nonrebreather mask. Patient denies pleuritic chest pain , abdominal pain but positive for nausea and diarrhea. CT chest revealed bilateral lower lobe scarring, bilateral adrenal adenomas a nonspecific bowel gas pattern. Chest x-ray revealed no significant findings. Lab work included a lactic acid elevated 7.7, white blood cell count 12,000 in acute kidney injury with a creatinine of 3.0. Baseline around 1.5-2. Troponin was slightly elevated 0.14. EKG is currently pending. Upon arrival to [facility], patient was extremely mottled with rates in the 40s. Patient was emergently intubated please see note and a left IJ central line was placed. CT of the head, abdomen and pelvis currently pending. 07/21 Patient is sedated with Diprivan and Fentanyl and intubated. On Levophed 22 mics, Vasopressin and bicarb drip. BC from 07/20: GPC all 4 bottles. 07/22 Patient remains sedated and intubated On Levophed 22 mics, vasopressin and bicarb drip. Awaiting to start CVVHD today 07/23: Remains sedated, orally intubated on mech ventilation. On Levophed 15 mics per minute and low-dose vasopressin for pressor support. On CRRT. 07/24: Remains sedated, orally intubated on mechanical ventilation. On Levophed 7 mics per minute and low-dose vasopressin for pressor support. CRRT was stopped at 1:30 AM due to Air in system and has now been resumed. 2 Amps of bicarbonate given for metabolic acidosis while CRRT held and bicarbonate drip was started back yesterday 07/25: Remains critically ill, on CVVH. Levoped 6 mics per minute. White count has normalized, making slight amount of urine. Showing some signs of progress 07/26: Remains sedated, orally intubated on mechanical ventilation. Remains on Levophed 3 mics per minute, vasopressin 0.03 mics per minute. CRRT continues. 07/27: Remains sedated, orally intubated on mechanical ventilation. Remains on Levophed 2 mics per minute, vasopressin 0.03 mics per minute. On CRRT. 07/28: Remains sedated, orally intubated on mechanical ventilation. Off Levophed. Remains on vasopressin. CRRT clotted off this morning and is on hold currently. Nephrology to decide regarding regular hemodialysis as patient is now off Levophed. 07/29: Sedated, arousable, orally intubated on mechanical ventilation. Off Levophed and vasopressin drips. To be initiated on hemodialysis today. Tolerating tube feeds. 07/30: Sedated, arousable, orally intubated on mechanical ventilation. Hemoglobin dropped to 6.9 this morning no evidence of melena or rectal bleeding noted. Stat CT abdomen pelvis did not reveal any evidence of retroperitoneal hematoma. Patient is maintaining his blood pressure and has not had any hypotension. 2 units PRBCs ordered this morning. 07/31: Sedated, arousable, orally intubated on mechanical ventilation. Underwent hemodialysis this morning. 08/01: Arousable off sedation, weakly grasps on command and wiggles toes. Remains orally intubated on mechanical ventilation. Tolerating tube feeds. 08/02: Awake off sedation, orally intubated on mechanical ventilation. Tolerating tube feeds. Awaiting hemodialysis today. 08/03: Patient failed extubation on 08/02 and required reintubation due to inability to mobilize secretions and worsening hypoxia about 8 hours following extubation. Sedated, orally intubated on mechanical ventilation. Started on Mucomyst and percussion therapy to mobilize secretions. 08/04: Remains sedated, orally intubated on mechanical ventilation. Significant pulmonary secretions being suctioned out following initiation of Mucomyst and percussion therapy per overnight TECHNICAL SERVICES COORDINATOR. Tolerating tube feeds. 08/05: Arousable off sedation, orally intubated on mechanical ventilation. Underwent hemodialysis today. Still has copious pulmonary secretions though these are being mobilized with Mucomyst and percussion therapy. Tolerating tube feeds. On C Pap trial to decide extubation. If he fails extubation or is unable to get extubated today will consider for tracheostomy tomorrow. 08/06: failing CPAP trials for tachypnea. 08/07: mental status improving. BP very well controlled off cardene. plan for trach today. 08/08: trach yesterday. now doing very well. on minimal PSV settings. plan for PEG on thursday. family at bedside and very happy with his improvements. patient smiled today for the first time in a few days. 08/09: tolerated 30 minutes of t-piece yesterday. rested on rate overnight. back on PSV this morning. interactive. doing well. denies complaints. plan for PEG thursday. 08/10: tolerated t-piece x 3 hours today. interactive and doing well in a chair today. still plans for PEG tomorrow. replaced NGT today, and patient has no gag or swallow strength at all per nursing. urinary retention and armstrong catheter replaced overnight. 08/11: continues to improve from a pulmonary standpoint. plan is for PEG today or tomorrow. working on placement. 08/12: doing well. PEG planned for noon. LTAC placement authorization in progress. from my standpoint, after PEG, stable for transfer to LTAC. 08/13: no overnight issues, permacath planned for placement today by IR, medically optimized for transfer to LTAC 08/14: Position right permacath is good. Ready for LTAC transfer. 08/15: Restart PT. Objective Vital Signs Date Time Temp Pulse Resp B/P Pulse Ox O2 Delivery O2 Flow Rate FiO2 08/15/16 08:48 95 T-piece 5.00 28 08/15/16 06:00 87 08/15/16 04:00 99.5 18 135/58 Intake and Output 08/14/16 08/14/16 08/15/16 08:00 16:00 00:00 Intake Total 318 ml 445 ml 120 ml Output Total 125 ml 2250 ml 15 ml Balance 193 ml -1805 ml 105 ml Result Diagram: 08/14/16 0417 08/14/16 0417 Imaging Last 48 hours Impressions Chest X-Ray 08/02/16 1421 Signed Impressions: Service Date/Time: Tuesday, August 02, 2016 14:42 - CONCLUSION: No significant interval change in bilateral pulmonary opacity. Castillo Roldan MD Last 48 hours Impressions Chest X-Ray 08/02/16 0600 Signed Impressions: Service Date/Time: Tuesday, August 02, 2016 05:47 - CONCLUSION: 1. Support apparatus in satisfactory position. Bilateral mostly basilar airspace disease and effusions similar to July 30. Jose Martin Valderrama MD Last 24 hours Impressions Chest X-Ray 07/28/16 0600 Signed Impressions: Service Date/Time: Thursday, July 28, 2016 03:09 - CONCLUSION: No significant change. Hazy opacity remains in both lungs most consistent with congestive heart failure. Alonzo Bradshaw MD Last 24 hours Impressions Chest X-Ray 07/26/16 0600 Signed Impressions: Service Date/Time: Tuesday, July 26, 2016 04:56 - CONCLUSION: No significant change. Jovan Aldridge MD Last 48 hours Impressions Abdomen X-Ray 07/24/16 0749 Signed Impressions: Service Date/Time: July 08:28 - CONCLUSION: Air-filled bowel loops centrally but no obstruction seen. Uli Atkins MD Chest X-Ray 07/24/16 0600 Signed Impressions: Service Date/Time: July 05:36 - CONCLUSION: Unchanged bibasilar infiltrates. Omer Cheng Jr., MD Last Impressions Chest X-Ray 07/21/16 0000 Signed Impressions: Service Date/Time: Thursday, July 21, 2016 22:13 - CONCLUSION: Satisfactory central line positioning. Worsening aeration. [place] Guillermo MD Renal Ultrasound 07/20/16 0000 Signed Impressions: Service Date/Time: Wednesday, July 20, 2016 14:32 - CONCLUSION: 1. No acute findings. Renal ultrasound unremarkable. Bladder was not well-visualized. Jose Martin Valderrama MD Lower Extremity Ultrasound 07/20/16 Signed Impressions: Service Date/Time: Wednesday, July 20, 2016 14:39 - CONCLUSION: Negative exam with no evidence of deep venous thrombosis. Alonzo Bradshaw MD Head CT 07/20/16 Signed Impressions: Service Date/Time: Wednesday, July 20, 2016 18:21 - CONCLUSION: 1. No acute intracranial abnormalities. Mild mucosal thickening of the ethmoid air cells. Jose Martin Valderrama MD Chest CT 07/20/16 Signed Impressions: Service Date/Time: Wednesday, July 20, 2016 11:28 - CONCLUSION: 1. Chronic scarring in the lung bases left greater than right. 2. No focal consolidation. 3. Bilateral adrenal masses left greater than right most consistent with adenomas. 4. Nonspecific bowel gas pattern noted in the upper abdomen with air-fluid levels in the small bowel. Alonzo Bradshaw MD Abdomen/Pelvis CT 07/20/16 0000 Signed Impressions: Service Date/Time: Wednesday, July 20, 2016 18:24 - CONCLUSION: 1. Lower abdominal ventral midline hernia containing loop of small bowel. Small bowel is mildly distended somewhat diffusely with fluid and air. Cannot exclude a low grade partial bowel obstruction in the area of herniation. 2. No abnormal fluid collections to suggest abscess. No free air or free fluid. 3. Basilar and dependent lung consolidation, left greater than right. Pneumonia could have this appearance. Small left effusion. 4. NG tip in stomach. Inferior vena cava filter present. Armstrong catheter in bladder. Jose Martin Valderrama MD Objective Remarks GENERAL: Patient is 71 yo elderly male, trached. sitting in bed, on psv today. SKIN: Warm and dry. HEAD: Normocephalic. EYES: Pallor present. No scleral icterus. No injection or drainage. NECK: trachea midline. No JVD , tracheostomy in place, minimal sanguinous drainage around trach. CARDIOVASCULAR: Regular rate and rhythm without murmurs, gallops, or rubs. RESPIRATORY: trached. unlabored. equal chest rise. GASTROINTESTINAL: Abdomen soft, non-tender, nondistended. Bowel sounds sluggish Neuro: Arousable off sedation, following commands. Moves both upper extremities weakly and wiggles toes bilaterally. Extremities: Warm bilaterally, Bilateral edema A/P Assessment and Plan Neuro/Psych: Peripheral neuropathy Chronic pain syndrome Goal RASS 1 melatonin QHS for sleep, zyprexa prn if not asleep by 2300. 07/20 CT brain: No acute intracranial abnormalities. CV: Elevated troponin- resolved. Hypertension- resolved. Dyslipidemia Lactic acidosis- resolved. Septic shock- resolved. Peripheral vascular disease History of AAA Off Stress dose steroids- Hydrocortisone decreased to 50mg daily on 07/29 and stopped on 07/31 Continue with ASA daily Echo showed EF 35-40% Norvasc 10mg po daily Coreg 12.5mg po q12h Hydralazine and labetalol when necessary to keep SBP less than 160 Resp: Acute-->chronic hypoxemic respiratory failure Tobaccoism s/p trach 08/[address] Barrera/Dr. Upton Comfortable and TPs for last 48 hours in no acute distress Duo nebs when necessary CT chest 07/20 revealed left greater than right basilar scarring. Bilateral adrenal adenomas. No focal consolidation OOB to stretcher chair daily. GI: Acute protein calorie malnutrition - moderate Tolerating tube feeds- Nepro with goal rate 40ml/hr. Reglan 5 mg IV every 8 hours Protonix for GI prophylaxis Colace/as needed Senokot for bowel regimen CT abdomen reviewed. Gen surgery- Dr Roman- no surgical interventions. PEG placement by GI yesterday 08/12 : Urinary Retention Strict intake output, monitor and replete electrolytes, follow BUN/creatinine. Started CRRT on 07/22, being followed by nephrology Dr. Magana. CRRT on hold since 07/28. Switched to hemodialysis on 07/29. Renal US: No acute findings --Cardura 2mg po daily, in 48h Endo: Diabetes mellitus with nephropathy and neuropathy Bilateral adrenal adenoma Hyperglycemia Decreased Levemir to 10 units subcutaneously every 12 hourly on 07/31. On high dose sliding scale insulin on 07/29 for better glycemic control. Off steroids. Heme: Leukocytosis- resolved. Thrombocytopenia- resolved. 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 HIT screen negative. Platelets have normalized. Started heparin 5000 units subcutaneously every 12 hourly on 07/29, increased to 5000 units subcutaneously every 8 hourly on 07/31. Transfused 2 units PRBCs for drop in hemoglobin to 6.9 on 07/30. CT abdomen pelvis with no evidence of retroperitoneal hematoma. Most likely secondary to blood loss with CRRT regarding multiple times. Maintaining H&H. Advanced to full anticoagulation with heparin GTT on 08/01, will plan to transition to Coumadin. ID: Strep Bacteremia Pneumonia- pseudomonas Continue with abx per ID - Unasyn switched to cefepime on 07/31 per ID due to pseudomonas in sputum. ID planning to initiate tobramycin nebulizer treatments. ID switched cefepime to Levaquin 08/08 Clindamycin stopped 07/29, vanco x 1 dose on admission. Pertinent cultures BC 07/20- GPC, Group A Beta strep Urine cx 07/20 : neg Strep pneumonia nad Legionella urinary Ag negative Follow up on Sputum cx, BC 07/21, 07/22- NGTD 07/30 Sputum c/s with pseudomonas 08/03 sputum with pseudomonas MSK: Osteoarthritis Holding vitamin D 1000 units by mouth daily. Access - piv -Right IJ vascath placed 07/22 - Tunnelled VasCath placed 08/14. Prophylaxis - GI - Protonix - DVT - SCD/heparin SQ. Heparin gtt 08/01 for full anticoagulation. - Doppler US LE negative for DVT Palliative care is following. stable for transfer to LTAC after PEG placement. Benjamin Upton MD Aug 15, 2016 10:18
--- NOTE | 2016-08-15 16:18 | HHI.NPPN ---
Subjective History of Present Illness 71-year-old male with past medical history of diabetes mellitus, hypertension, ischemic heart disease, peripheral neuropathy, chronic kidney disease, history of deep vein thrombosis, hyperlipidemia was brought to the hospital because of generalized weakness, confusion and vomiting and diarrhea. I was called to see the patient because of elevated BUN and creatinine. The patient has history of acute kidney injury in the past and chronic kidney disease. His creatinine was around 1.2 to 1.4, this was in 2012. Additional Remarks Patient is alert, clinically same with T-Piece. Review of Systems General Constitutional: Fatigue Respiratory Lungs: SOB, Cough, Sputum, Wheeze Objective Data Data 08/14/16 08/15/16 19:00 07:00 Intake Total 445 ml 180 ml Output Total 2250 ml 75 ml Balance -1805 ml 105 ml Tube Feeding 375 ml Tube Irrigant 70 ml Other 180 ml Output Urine Total 250 ml 75 ml Hemodialysis 2000 ml # Bowel Movements 0 0 Vital Signs Date Time Temp Pulse Resp B/P Pulse Ox O2 Delivery O2 Flow Rate FiO2 08/15/16 11:59 80 08/15/16 11:59 79 08/15/16 10:51 96 T-Piece 6.00 28 08/15/16 08:48 95 T-piece 5.00 28 08/15/16 08:00 98.9 88 23 124/58 96 08/15/16 07:30 18 08/15/16 06:00 87 08/15/16 04:00 99.5 82 18 135/58 100 08/15/16 04:00 82 08/15/16 02:00 80 08/15/16 00:00 99.6 88 30 137/63 99 08/15/16 00:00 88 08/14/16 22:00 87 08/14/16 20:04 98 T-piece 40 08/14/16 20:00 82 08/14/16 20:00 99.6 82 22 127/60 96 08/14/16 19:00 100 T-Piece 6.00 40 08/14/16 18:00 79 -: 08/14/16 0417 08/14/16416 Physical Exam General Appearance: No Acute Distress, Anxious Eyes Eye Exam: Pupils Equal Throat Throat Exam: Oral Mucosa [place] & Moist Neck Neck Exam: Neck Supple Pulmonary Resp Exam: Rhonchi, Decreased Bases, Diminished Breath Sounds, Poor Inspiratory Effort Cardiology CV Exam: Regular, Normal Sinus Rhythm Gastrointestinal/Abdomen GI Exam: Soft, Non-Tender, Bowel Sounds Present Extremeties Extremities Exam: Trace Edema Neurologic Neuro Exam: Alert, Awake Psychiatric Psych Exam: Appropriate Responses Assessment/Plan Assessment Summary: ADALID/Acute Renal Failure Electrolyte Assessment: Metabolic Acidosis Problem List: (1) Diabetes mellitus with neuropathy (2) Leukocytosis (3) Peripheral vascular disease (4) Severe sepsis with acute organ dysfunction (5) History of DVT (deep vein thrombosis) (6) Hypoxia (7) Acidosis (8) Lactic acidosis Plan Patient has some improvement in the urine out put. BP is occ. elevated due to agitation, on Amlodipine and Doxazosin. sputum c/s results noted Pseudomonas, seen by ID. On Levaquin, ID following.l. Still has elevated Creatinine. PermCath done, For transfer to [facility]. So far no improvement in the renal function. HD is due in AM. Problem Qualifiers (1) Diabetes mellitus with neuropathy: Qualified Code: E11.40 - Type 2 diabetes mellitus with diabetic neuropathy, unspecified custodial insulin use status (2) Leukocytosis: Qualified Code: D72.829 - Leukocytosis, unspecified type Frank Magana MD Aug 15, 2016 16:18
--- NOTE | 2016-08-27 11:28 | HHI.DS ---
Discharge Summary Admission Date July 20, 2016 at 11:01 Discharge Date: Aug 15, 2016 Admitting Diagnosis HYPOXIA (1) Diabetes mellitus with neuropathy ICD Code: E11.40 Diagnosis: Principal (2) Diabetes mellitus due to underlying condition with diabetic neuropathy ICD Code: E08.40 Diagnosis: Principal (3) Severe sepsis with acute organ dysfunction ICD Code: A41.9 Diagnosis: Principal (4) Lactic acidosis ICD Code: E87.2 Diagnosis: Principal (5) Hypoxia ICD Code: R09.02 Diagnosis: Principal (6) Acidosis ICD Code: E87.2 Diagnosis: Principal (7) Leukocytosis ICD Code: D72.829 Diagnosis: Principal (8) Elevated troponin ICD Code: R74.8 Diagnosis: Principal (9) Dyslipidemia ICD Code: E78.5 Diagnosis: Principal (10) History of DVT (deep vein thrombosis) ICD Code: Z86.718 Diagnosis: Principal (11) Chronic anticoagulation ICD Code: Z79.01 Diagnosis: Principal (12) Peripheral vascular disease ICD Code: I73.9 Diagnosis: Principal (13) Hypertension ICD Code: I10 Diagnosis: Principal Brief History 71-year-old male. Date of admission 07/20/2016. Past records includes diabetes with neuropathy and nephropathy, hypertension, dyslipidemia, chronic pain syndrome, history of DVT/PE on chronic anticoagulation, peripheral vascular disease with history of AAA, and osteoporosis. Patient recently C [place] 07/06/16. Patient sick contacts would include neighbor with "vital illness. Patient is to [facility] today with acute onset of diarrhea, hypoglycemia and chills. Upon arrival, patient was noted be acutely hypoxic and required a nonrebreather mask. Patient denies pleuritic chest pain , abdominal pain but positive for nausea and diarrhea. CT chest revealed bilateral lower lobe scarring, bilateral adrenal adenomas a nonspecific bowel gas pattern. Chest x-ray revealed no significant findings. Lab work included a lactic acid elevated 7.7, white blood cell count 12,000 in acute kidney injury with a creatinine of 3.0. Baseline around 1.5-2. Troponin was slightly elevated 0.14. EKG is currently pending. Upon arrival to [facility], patient was extremely mottled with rates in the 40s. Patient was emergently intubated please see note and a left IJ central line was placed. CT of the head, abdomen and pelvis currently pending. PE at Discharge Lungs: Scattered rhonchi. Heart: Irreg Irreg Abdomen: Benign. Transfer Summary Will require ongoing hemodialysis and mechanical ventilation while long-term ventilator weaning progresses. Patient is very weak and chronically debilitated owing to longstanding diabetes and cardiovascular disease. Hospital Course 71-year-old male. Date of admission 07/20/2016. Past records includes diabetes with neuropathy and nephropathy, hypertension, dyslipidemia, chronic pain syndrome, history of DVT/PE on chronic anticoagulation, peripheral vascular disease with history of AAA, and osteoporosis. Patient recently C [place] 07/06/16. Patient sick contacts would include neighbor with "vital illness. Patient is to [facility] today with acute onset of diarrhea, hypoglycemia and chills. Upon arrival, patient was noted be acutely hypoxic and required a nonrebreather mask. Patient denies pleuritic chest pain , abdominal pain but positive for nausea and diarrhea. CT chest revealed bilateral lower lobe scarring, bilateral adrenal adenomas a nonspecific bowel gas pattern. Chest x-ray revealed no significant findings. Lab work included a lactic acid elevated 7.7, white blood cell count 12,000 in acute kidney injury with a creatinine of 3.0. Baseline around 1.5-2. Troponin was slightly elevated 0.14. EKG is currently pending. Upon arrival to [facility], patient was extremely mottled with rates in the 40s. Patient was emergently intubated please see note and a left IJ central line was placed. CT of the head, abdomen and pelvis currently pending. 07/21 Patient is sedated with Diprivan and Fentanyl and intubated. On Levophed 22 mics, Vasopressin and bicarb drip. BC from 07/20: GPC all 4 bottles. 07/22 Patient remains sedated and intubated On Levophed 22 mics, vasopressin and bicarb drip. Awaiting to start CVVHD today 07/23: Remains sedated, orally intubated on mech ventilation. On Levophed 15 mics per minute and low-dose vasopressin for pressor support. On CRRT. 07/24: Remains sedated, orally intubated on mechanical ventilation. On Levophed 7 mics per minute and low-dose vasopressin for pressor support. CRRT was stopped at 1:30 AM due to Air in system and has now been resumed. 2 Amps of bicarbonate given for metabolic acidosis while CRRT held and bicarbonate drip was started back yesterday 07/25: Remains critically ill, on CVVH. Levoped 6 mics per minute. White count has normalized, making slight amount of urine. Showing some signs of progress 07/26: Remains sedated, orally intubated on mechanical ventilation. Remains on Levophed 3 mics per minute, vasopressin 0.03 mics per minute. CRRT continues. 07/27: Remains sedated, orally intubated on mechanical ventilation. Remains on Levophed 2 mics per minute, vasopressin 0.03 mics per minute. On CRRT. 07/28: Remains sedated, orally intubated on mechanical ventilation. Off Levophed. Remains on vasopressin. CRRT clotted off this morning and is on hold currently. Nephrology to decide regarding regular hemodialysis as patient is now off Levophed. 07/29: Sedated, arousable, orally intubated on mechanical ventilation. Off Levophed and vasopressin drips. To be initiated on hemodialysis today. Tolerating tube feeds. 07/30: Sedated, arousable, orally intubated on mechanical ventilation. Hemoglobin dropped to 6.9 this morning no evidence of melena or rectal bleeding noted. Stat CT abdomen pelvis did not reveal any evidence of retroperitoneal hematoma. Patient is maintaining his blood pressure and has not had any hypotension. 2 units PRBCs ordered this morning. 07/31: Sedated, arousable, orally intubated on mechanical ventilation. Underwent hemodialysis this morning. 08/01: Arousable off sedation, weakly grasps on command and wiggles toes. Remains orally intubated on mechanical ventilation. Tolerating tube feeds. 08/02: Awake off sedation, orally intubated on mechanical ventilation. Tolerating tube feeds. Awaiting hemodialysis today. 08/03: Patient failed extubation on 08/02 and required reintubation due to inability to mobilize secretions and worsening hypoxia about 8 hours following extubation. Sedated, orally intubated on mechanical ventilation. Started on Mucomyst and percussion therapy to mobilize secretions. 08/04: Remains sedated, orally intubated on mechanical ventilation. 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 Tolerating tube feeds. 08/05: Arousable off sedation, orally intubated on mechanical ventilation. Underwent hemodialysis today. Still has copious pulmonary secretions though these are being mobilized with Mucomyst and percussion therapy. Tolerating tube feeds. On C Pap trial to decide extubation. If he fails extubation or is unable to get extubated today will consider for tracheostomy tomorrow. 08/06: failing CPAP trials for tachypnea. 08/07: mental status improving. BP very well controlled off cardene. plan for trach today. 08/08: trach yesterday. now doing very well. on minimal PSV settings. plan for PEG on thursday. family at bedside and very happy with his improvements. patient smiled today for the first time in a few days. 08/09: tolerated 30 minutes of t-piece yesterday. rested on rate overnight. back on PSV this morning. interactive. doing well. denies complaints. plan for PEG thursday. 08/10: tolerated t-piece x 3 hours today. interactive and doing well in a chair today. still plans for PEG tomorrow. replaced NGT today, and patient has no gag or swallow strength at all per nursing. urinary retention and armstrong catheter replaced overnight. 08/11: continues to improve from a pulmonary standpoint. plan is for PEG today or tomorrow. working on placement. 08/12: doing well. PEG planned for noon. LTAC placement authorization in progress. from my standpoint, after PEG, stable for transfer to LTAC. 08/13: no overnight issues, permacath planned for placement today by IR, medically optimized for transfer to LTAC 08/14: Position right permacath is good. Ready for LTAC transfer. 08/15: Restart PT. Pt Condition on Discharge: Fair Discharge Disposition: ACLF/Benjamin Busch MD Aug 27, 2016 11:28
== END 2016-08-15 18:26 | DRG 4 ==
LOC: PHED 08:55 → PHEDA 11:01 → N03A 13:35
PROVIDERS: ADMIT Internal Medicine Critical Care Medicine; ATTEND Internal Medicine Critical Care Medicine
PROC: 5A1955Z Respiratory Ventilation, Greater than 96 Consecutive Hours (ICD-10-PCS; 2016-07-20)
PROC: 0BH17EZ Insertion of Endotracheal Airway into Trachea, Via Natural or Artificial Opening (ICD-10-PCS; 2016-07-20)
PROC: B544ZZA Ultrasonography of Left Jugular Veins, Guidance (ICD-10-PCS; 2016-07-20)
PROC: 02HV33Z Insertion of Infusion Device into Superior Vena Cava, Percutaneous Approach (ICD-10-PCS; 2016-07-20)
PROC: 02HV33Z Insertion of Infusion Device into Superior Vena Cava, Percutaneous Approach (ICD-10-PCS; 2016-07-21)
PROC: B543ZZA Ultrasonography of Right Jugular Veins, Guidance (ICD-10-PCS; 2016-07-21)
PROC: 5A1D60Z (ICD-10-PCS; 2016-07-23)
PROC: 30233N1 Transfusion of Nonautologous Red Blood Cells into Peripheral Vein, Percutaneous Approach (ICD-10-PCS; 2016-07-30)
PROC: 5A1955Z Respiratory Ventilation, Greater than 96 Consecutive Hours (ICD-10-PCS; 2016-08-02)
PROC: 0BH17EZ Insertion of Endotracheal Airway into Trachea, Via Natural or Artificial Opening (ICD-10-PCS; 2016-08-02)
PROC: 0B113F4 Bypass Trachea to Cutaneous with Tracheostomy Device, Percutaneous Approach (ICD-10-PCS; principal; 2016-08-07)
PROC: 0BJ08ZZ Inspection of Tracheobronchial Tree, Via Natural or Artificial Opening Endoscopic (ICD-10-PCS; 2016-08-07)
PROC: 0DH63UZ Insertion of Feeding Device into Stomach, Percutaneous Approach (ICD-10-PCS; 2016-08-12)
PROC: 0DJ08ZZ Inspection of Upper Intestinal Tract, Via Natural or Artificial Opening Endoscopic (ICD-10-PCS; 2016-08-12)
PROC: 02HV33Z Insertion of Infusion Device into Superior Vena Cava, Percutaneous Approach (ICD-10-PCS; 2016-08-13)
PROC: B543ZZA Ultrasonography of Right Jugular Veins, Guidance (ICD-10-PCS; 2016-08-13)
DX: A40.0 Sepsis due to streptococcus, group A (principal); N17.0 Acute kidney failure with tubular necrosis; R65.21 Severe sepsis with septic shock; G93.40 Encephalopathy, unspecified; J95.851 Ventilator associated pneumonia; E44.0 Moderate protein-calorie malnutrition; I13.0 Hypertensive heart and chronic kidney disease with heart failure and stage 1 through stage 4 chronic kidney disease, or unspecified chronic kidney disease; E87.2 Acidosis; E87.4 Mixed disorder of acid-base balance; I50.9 Heart failure, unspecified; J96.01 Acute respiratory failure with hypoxia; R13.10 Dysphagia, unspecified; E11.21 Type 2 diabetes mellitus with diabetic nephropathy; D69.59 Other secondary thrombocytopenia; E11.22 Type 2 diabetes mellitus with diabetic chronic kidney disease; E78.5 Hyperlipidemia, unspecified; E11.51 Type 2 diabetes mellitus with diabetic peripheral angiopathy without gangrene; I25.9 Chronic ischemic heart disease, unspecified; N18.9 Chronic kidney disease, unspecified; G89.4 Chronic pain syndrome; E11.42 Type 2 diabetes mellitus with diabetic polyneuropathy; I25.10 Atherosclerotic heart disease of native coronary artery without angina pectoris; E11.649 Type 2 diabetes mellitus with hypoglycemia without coma; I49.3 Ventricular premature depolarization; D50.0 Iron deficiency anemia secondary to blood loss (chronic); K43.9 Ventral hernia without obstruction or gangrene; D35.01 Benign neoplasm of right adrenal gland; D35.02 Benign neoplasm of left adrenal gland; R33.9 Retention of urine, unspecified; M81.0 Age-related osteoporosis without current pathological fracture; M19.90 Unspecified osteoarthritis, unspecified site; F17.210 Nicotine dependence, cigarettes, uncomplicated; B96.5 Pseudomonas (aeruginosa) (mallei) (pseudomallei) as the cause of diseases classified elsewhere; Y84.8 Other medical procedures as the cause of abnormal reaction of the patient, or of later complication, without mention of misadventure at the time of the procedure; Z57.5 Occupational exposure to toxic agents in other industries; Z79.01 Long term (current) use of anticoagulants; Z80.42 Family history of malignant neoplasm of prostate; Z79.4 Long term (current) use of insulin; Z86.711 Personal history of pulmonary embolism; Z86.718 Personal history of other venous thrombosis and embolism; Z86.79 Personal history of other diseases of the circulatory system
CPT/HCPCS: 31500; 31600; 31624; 36430; 36556; 36558; 36593; 36600; 36620; 70450; 71010; 71250; 74000; 74176; 76775; 76937; 77001; 80048; 80053; 80074; 80202; 81001; 82550; 82552; 82570; 82805; 82948; 83605; 83615; 83735; 83880; 83935; 84100; 84132; 84155; 84300; 84484; 85007; 85025; 85027; 85379; 85384; 85610; 85730; 86022; 86850; 86900; 86901; 86920; 87040; 87070; 87077; 87086; 87186; 87205; 87328; 87329; 87425; 87449; 87493; 87506; 87641; 90935; 93005; 93306; 93970; 94002; 94003; 94150; 94640; 94664; 94667; 94668; 96361; 96365; 96374; 96375; 99152; 99153; C1750; C1769; C9113; J0295; J0330; J0360; J0456; J0610; J0692; J0696; J1580; J1644; J1720; J1815; J2060; J2250; J2405; J2543; J2720; J2765; J2997; J3010; J3370; J3475; J3480; J7030; J7040; J7050; J7070; J7608; J7613; J7685; P9016; P9047; Q9963